=== PATIENT | female | born 1995 | race Caucasian/White ===

== ENCOUNTER 2017-05-24 20:48 | Inpatient (IN) | payer MEDICAID ==
[~2017-05-24] VITALS: Ht 165.1 cm; Wt 82.4 kg
[2017-05-24] MEDS ORDERED: SODIUM CHLORIDE 0.9% 1,000ML IVBOLUS ONE (21:30)
[2017-05-24] MEDS ORDERED: INSU100I34 SQ (21:32)
[2017-05-24] MEDS ORDERED: INSU100C5 SQ-INSULIN (21:32)
[2017-05-24] MEDS ORDERED: ONDA4TAB10 PO (21:33)
[2017-05-24 21:49] LABS: BASOPHILS # (AUTO) 0.12 x10^3/uL (0-0.1); BASOPHILS % (AUTO) 1 % (0-1); EOSINOPHILS # (AUTO) 0.01 x10^3/uL (0-0.4); EOSINOPHILS % (AUTO) 0 % (1-7); LYMPHOCYTES # (AUTO) 1.99 x10^3/uL (1-3.4); LYMPHOCYTES % (AUTO) 21 % (22-44); MD NO; MEAN CORPUSCULAR HEMOGLOBIN 30.5 pg (27.0-34.8); MEAN CORPUSCULAR HGB CONC 32.5 g/dL (32.4-35.8); MEAN PLATELET VOLUME 8.6 fL (7.4-10.4); MONOCYTES # (AUTO) 0.45 x10^3/uL (0.2-0.8); MONOCYTES % (AUTO) 5 % (2-9); NEUTROPHILS # (AUTO) 6.78 x10^3/uL (1.8-6.8); NEUTROPHILS % (AUTO) 73 % (42-75); PH, VENOUS 7.246 pH (7.320-7.420); PLATELET COUNT 617 x10^3/uL (130-400); RED BLOOD COUNT 4.74 x10^6/uL (3.82-5.3); RED CELL DISTRIBUTION WIDTH 15.7 % (9.6-15.2)
[2017-05-24] MEDS ORDERED: ONDANSETRON 2MG/ML, 2ML ONE (21:49)
[2017-05-24 21:55] LABS: ACETONE, SERUM Large (80mg/dL) mg/dL (Negative)
[2017-05-24] MEDS ORDERED: ONDANSETRON 2MG/ML, 2ML IVPush ONE (22:00)
[2017-05-24 22:03] LABS: ALANINE AMINOTRANSFERASE 23 U/L (12-78); ALBUMIN 4.2 g/dL (3.4-5.0); ANION GAP 27 mmol/L (5-15); CALCIUM 9.8 mg/dL (8.5-10.1); CHLORIDE 96 mmol/L (98-107); CREATININE 2.11 mg/dL (0.55-1.02)
[2017-05-24 22:08] LABS: ALKALINE PHOSPHATASE 167 U/L (45-117); BILIRUBIN,TOTAL 0.5 mg/dL (0.2-1.0); TOTAL PROTEIN 9.5 g/dL (6.4-8.2)
[2017-05-24 22:13] LABS: HEMOGLOBIN A1C 12.1 % (4.2-6.3)
[2017-05-24 22:21] VITALS: BP 120/67
[2017-05-24] MEDS ORDERED: REGULAR INSULIN 62.5 UNITS in SODIUM CHLORIDE 0.9% 249.375 ML IV PRN ×2 (22:24→22:43)
[2017-05-24] MEDS ORDERED: SODIUM CHLORIDE 0.9% 1,000 ML IV ONE (22:24)
[2017-05-24] MEDS ORDERED: ACETAMINOPHEN 325 MG TABLET PO PRN (23:00)
[2017-05-24] MEDS ORDERED: ONDANSETRON 2MG/ML, 2ML IVPush PRN (23:00)
[2017-05-24] MEDS: SODIUM CHLORIDE 0.9% 1,000 ML IV SCH (23:32)
[2017-05-25 01:22] LABS: ANION GAP 22 mmol/L (5-15); CALCIUM 8.3 mg/dL (8.5-10.1); CHLORIDE 107 mmol/L (98-107)
[2017-05-25] MEDS: D5%-0.45% NACL 1,000 ML IV PRN ×2 (04:03→11:05)
[2017-05-25] MEDS: SODIUM CHLORIDE 0.9% 1,000 ML IV SCH ×2 (05:23→12:03)
[2017-05-25 05:28] LABS: ANION GAP 14 mmol/L (5-15); CALCIUM 7.1 mg/dL (8.5-10.1); CHLORIDE 106 mmol/L (98-107)
[2017-05-25 05:30] LABS: CREATININE 1.31 mg/dL (0.55-1.02)
[2017-05-25] MEDS ORDERED: MAGNESIUM SULFATE PMX 4GM/100M 100 ML IV ONE (08:00)
[2017-05-25] MEDS ORDERED: ENOXAPARIN 40 MG/0.4 ML SQ SCH (09:00)
[2017-05-25 09:20] LABS: ANION GAP 10 mmol/L (5-15); CALCIUM 7.6 mg/dL (8.5-10.1); CHLORIDE 104 mmol/L (98-107); CREATININE 1.35 mg/dL (0.55-1.02)
[2017-05-25] MEDS ORDERED: INSULIN GLARGINE 100 UNITS/ML, PEN SQ-INSULIN SCH (10:00)
[2017-05-25] MEDS ORDERED: INSULIN LISPRO 100 UNITS/ML, PEN SQ-INSULIN SCH (12:00)
== END 2017-05-25 15:50 | disposition home or self-care (01) | DRG 682 ==
LOC: SUATTDRO 22:36 → ED 22:54 → EDIP 22:55 → CCU 23:12
PROVIDERS: ADMIT Hospitalist; ATTEND Hospitalist
DX: N17.9 Acute kidney failure, unspecified (principal); E10.10 Type 1 diabetes mellitus with ketoacidosis without coma; E87.5 Hyperkalemia; E86.0 Dehydration; Z91.19 Patient's noncompliance with other medical treatment and regimen; E10.65 Type 1 diabetes mellitus with hyperglycemia
CPT/HCPCS: 36415; 71045; 80048; 80053; 82010; 82803; 82962; 83036; 83690; 83735; 84100; 84703; 85025; 87081; 93005; 96361; 96374; J1650; J1815; J2405; J3475; J7030; J7050

== ENCOUNTER 2017-05-28 20:57 | Inpatient (IN) | payer MEDICAID ==
[~2017-05-28] VITALS: Ht 165.1 cm; Wt 83.4 kg
[~2017-05-28 20:57] MED LIST: INSU100C5 SQ-INSULIN; INSU100I34 SQ; ONDA4TAB10 PO
[2017-05-28] MEDS ORDERED: PROMETHAZINE 25 MG/ML, 1ML ONE (21:23)
[2017-05-28] MEDS ORDERED: ONDANSETRON 2MG/ML, 2ML ONE (21:23)
[2017-05-28 21:29] LABS: PH, VENOUS 7.211 pH (7.320-7.420)
[2017-05-28] MEDS ORDERED: PROMETHAZINE 25 MG/ML, 1ML IM ONE (21:30)
[2017-05-28] MEDS ORDERED: SODIUM CHLORIDE 0.9% 1,000ML IVBOLUS ONE (21:30)
[2017-05-28] MEDS ORDERED: ONDANSETRON 2MG/ML, 2ML IVPush ONE (21:30)
[2017-05-28 21:38] LABS: BASOPHILS # (AUTO) 0.03 x10^3/uL (0-0.1); BASOPHILS % (AUTO) 1 % (0-1); EOSINOPHILS # (AUTO) 0.01 x10^3/uL (0-0.4); EOSINOPHILS % (AUTO) 0 % (1-7); LYMPHOCYTES # (AUTO) 2.08 x10^3/uL (1-3.4); LYMPHOCYTES % (AUTO) 30 % (22-44); MD NO; MEAN CORPUSCULAR HEMOGLOBIN 31.2 pg (27.0-34.8); MEAN CORPUSCULAR HGB CONC 32.6 g/dL (32.4-35.8); MEAN CORPUSCULAR VOLUME 95.8 fL (80-100); MONOCYTES # (AUTO) 0.32 x10^3/uL (0.2-0.8); MONOCYTES % (AUTO) 5 % (2-9); NEUTROPHILS # (AUTO) 4.57 x10^3/uL (1.8-6.8); NEUTROPHILS % (AUTO) 65 % (42-75); PLATELET COUNT 401 x10^3/uL (130-400); RED BLOOD COUNT 3.97 x10^6/uL (3.82-5.3); RED CELL DISTRIBUTION WIDTH 15.5 % (9.6-15.2)
[2017-05-28 21:39] LABS: ALANINE AMINOTRANSFERASE 22 U/L (12-78); ALBUMIN 3.6 g/dL (3.4-5.0); ANION GAP 28 mmol/L (5-15); CALCIUM 8.8 mg/dL (8.5-10.1); CHLORIDE 91 mmol/L (98-107); CREATININE 1.42 mg/dL (0.55-1.02)
[2017-05-28] MEDS ORDERED: REGULAR INSULIN 62.5 UNITS in SODIUM CHLORIDE 0.9% 249.375 ML IV PRN ×2 (21:41→23:48)
[2017-05-28 21:48] LABS: ALKALINE PHOSPHATASE 153 U/L (45-117); BILIRUBIN,TOTAL 0.7 mg/dL (0.2-1.0); TOTAL PROTEIN 7.8 g/dL (6.4-8.2)
[2017-05-28 21:56] LABS: ACETONE, SERUM Large (80mg/dL) mg/dL (Negative)
[2017-05-28] MEDS ORDERED: SODIUM CHLORIDE 0.9% 1,000 ML IV ONE (22:18)
[2017-05-28 22:36] LABS: HEMOGLOBIN A1C 12.6 % (4.2-6.3)
[2017-05-28] MEDS: SODIUM CHLORIDE 0.9% 1,000 ML IV SCH (23:35)
[2017-05-28] MEDS ORDERED: D5%-0.45% NACL 1,000 ML IV PRN (23:48)
[2017-05-29] MEDS ORDERED: ACETAMINOPHEN 325 MG TABLET PO PRN
[2017-05-29] MEDS ORDERED: hydrALAzine 20 MG/ML, 1ML IVPush PRN
[2017-05-29] MEDS ORDERED: ONDANSETRON 2MG/ML, 2ML IVPush PRN
[2017-05-29] MEDS ORDERED: POLYETHYLENE GLYCOL 17 GM PACKET PO PRN
[2017-05-29] MEDS ORDERED: BISACODYL 10 MG SUPP PR PRN
[2017-05-29 00:24] LABS: FREE T4 (FREE THYROXINE) 1.07 ng/dL (0.76-1.46); THYROID STIMULATING HORMONE 0.625 mIU/L (0.358-3.740)
[2017-05-29 00:28] LABS: HEMOGLOBIN A1C 12.5 % (4.2-6.3)
[2017-05-29] MEDS ORDERED: ONDANSETRON 2MG/ML, 2ML ONE (00:47)
[2017-05-29 01:12] LABS: ANION GAP 25 mmol/L (5-15); CALCIUM 8.4 mg/dL (8.5-10.1); CHLORIDE 106 mmol/L (98-107); CREATININE 1.48 mg/dL (0.55-1.02)
[2017-05-29] MEDS: SODIUM CHLORIDE 0.9% 1,000 ML IV SCH ×2 (04:35→07:28)
[2017-05-29 05:54] LABS: BASOPHILS # (AUTO) 0.07 x10^3/uL (0-0.1); BASOPHILS % (AUTO) 1 % (0-1); EOSINOPHILS # (AUTO) 0.02 x10^3/uL (0-0.4); EOSINOPHILS % (AUTO) 0 % (1-7); LYMPHOCYTES # (AUTO) 3.12 x10^3/uL (1-3.4); LYMPHOCYTES % (AUTO) 48 % (22-44); MD NO; MEAN CORPUSCULAR HEMOGLOBIN 31.3 pg (27.0-34.8); MEAN CORPUSCULAR HGB CONC 33.6 g/dL (32.4-35.8); MEAN CORPUSCULAR VOLUME 93.1 fL (80-100); MEAN PLATELET VOLUME 7.6 fL (7.4-10.4); MONOCYTES # (AUTO) 0.55 x10^3/uL (0.2-0.8); MONOCYTES % (AUTO) 8 % (2-9); NEUTROPHILS # (AUTO) 2.77 x10^3/uL (1.8-6.8); NEUTROPHILS % (AUTO) 42 % (42-75); PLATELET COUNT 341 x10^3/uL (130-400); RED BLOOD COUNT 3.36 x10^6/uL (3.82-5.3); RED CELL DISTRIBUTION WIDTH 15.1 % (9.6-15.2)
[2017-05-29 06:04] LABS: ALANINE AMINOTRANSFERASE 17 U/L (12-78); ALBUMIN 2.9 g/dL (3.4-5.0); ANION GAP 9 mmol/L (5-15); CALCIUM 8.3 mg/dL (8.5-10.1); CHLORIDE 113 mmol/L (98-107); CHOLESTEROL, TOTAL 156 mg/dL (140-239); CREATININE 1.44 mg/dL (0.55-1.02); TRIGLYCERIDES 183 mg/dL (50-200); VLDL CHOLESTEROL 37 mg/dL (0-25)
[2017-05-29 06:07] LABS: ALKALINE PHOSPHATASE 112 U/L (45-117); BILIRUBIN,TOTAL 0.3 mg/dL (0.2-1.0); CHOL/HDL RATIO 4.3; HDL CHOL % 23 % (28-40); HDL CHOLESTEROL (DIRECT) 36 mg/dL (40-60); LDL CHOLESTEROL,CALCULATED 83 mg/dL (54-169); LDL/HDL RATIO 2.3 (0.5-3.0); TOTAL PROTEIN 6.2 g/dL (6.4-8.2)
[2017-05-29] MEDS: SENNA/DOCUSATE TABLET PO SCH (09:00)
[2017-05-29] MEDS: HEPARIN 5,000 UNITS/ML, 1ML SQ SCH ×4 (09:21→22:29)
[2017-05-29] MEDS: INSULIN LISPRO 100 UNITS/ML, PEN SQ-INSULIN SCH ×4 (09:22→22:29)
[2017-05-29] MEDS: INSULIN GLARGINE 100 UNITS/ML, PEN SQ-INSULIN SCH ×2 (09:22→22:29)
[2017-05-29 12:30] VITALS: BP 102/68
[2017-05-29 14:16] LABS: CULTURE INDICATED? NO; MICROSCOPIC NOT IND
[2017-05-29 19:21] VITALS: BP 108/71
[2017-05-30 02:35] VITALS: BP 85/49
[2017-05-30] MEDS: INSULIN LISPRO 100 UNITS/ML, PEN SQ-INSULIN SCH ×2 (07:57→11:50)
[2017-05-30 07:58] VITALS: BP 107/75
[2017-05-30] MEDS: HEPARIN 5,000 UNITS/ML, 1ML SQ SCH (07:58)
[2017-05-30] MEDS: SENNA/DOCUSATE TABLET PO SCH (07:58)
[2017-05-30] MEDS ORDERED: INSULIN GLARGINE 100 UNITS/ML, PEN SQ-INSULIN SCH (09:00)
[2017-05-30 09:44] LABS: ANION GAP 9 mmol/L (5-15); CALCIUM 8.1 mg/dL (8.5-10.1); CHLORIDE 102 mmol/L (98-107); CREATININE 1.23 mg/dL (0.55-1.02)
[2017-05-30 13:28] VITALS: BP 108/71
== END 2017-05-30 16:10 | disposition home or self-care (01) | DRG 637 ==
LOC: ED 22:26 → EDIP 22:37 → CCU 05-29 04:22 → 4NOR 05-29 13:13 → DCLOUNGE 05-30 16:03
PROVIDERS: ADMIT Internal Medicine; ATTEND Internal Medicine
DX: E10.10 Type 1 diabetes mellitus with ketoacidosis without coma (principal); N17.0 Acute kidney failure with tubular necrosis; E87.1 Hypo-osmolality and hyponatremia; E66.9 Obesity, unspecified; Z68.30 Body mass index [BMI] 30.0-30.9, adult; E86.0 Dehydration; E87.5 Hyperkalemia; F12.90 Cannabis use, unspecified, uncomplicated; Z83.3 Family history of diabetes mellitus; Z91.19 Patient's noncompliance with other medical treatment and regimen
CPT/HCPCS: 36415; 80048; 80053; 80061; 81003; 82010; 82803; 82962; 83036; 83690; 83735; 84439; 84443; 84703; 85025; 96361; 96365; 96372; 96375; J1644; J1815; J2405; J2550; J7030; J7050

== ENCOUNTER 2017-06-11 11:32 | Inpatient (IN) | payer MEDICAID ==
[~2017-06-11] VITALS: Ht 162.6 cm; Wt 86.9 kg
[2017-06-11] MEDS ORDERED: PLEASE ENTER HEIGHT AND WEIGHT MC SCH (12:00)
[2017-06-11] MEDS ORDERED: SODIUM CHLORIDE 0.9% 1,000ML IVBOLUS ONE ×2 (12:00→12:30)
[2017-06-11] MEDS ORDERED: SODIUM CHLORIDE FLUSH 10ML SYR IVF ONE (12:00)
[2017-06-11 12:09] LABS: BASOPHILS # (AUTO) 0.05 x10^3/uL (0-0.1); BASOPHILS % (AUTO) 0 % (0-1); EOSINOPHILS # (AUTO) 0.01 x10^3/uL (0-0.4); EOSINOPHILS % (AUTO) 0 % (1-7); LYMPHOCYTES # (AUTO) 1.48 x10^3/uL (1-3.4); LYMPHOCYTES % (AUTO) 11 % (22-44); MD NO; MEAN CORPUSCULAR HEMOGLOBIN 30.7 pg (27.0-34.8); MEAN CORPUSCULAR HGB CONC 31.9 g/dL (32.4-35.8); MEAN CORPUSCULAR VOLUME 96.5 fL (80-100); MEAN PLATELET VOLUME 9.2 fL (7.4-10.4); MONOCYTES # (AUTO) 0.38 x10^3/uL (0.2-0.8); MONOCYTES % (AUTO) 3 % (2-9); NEUTROPHILS # (AUTO) 11.76 x10^3/uL (1.8-6.8); NEUTROPHILS % (AUTO) 86 % (42-75); PLATELET COUNT 343 x10^3/uL (130-400); RED CELL DISTRIBUTION WIDTH 15.8 % (9.6-15.2)
[2017-06-11 12:11] LABS: FIO2 ROOM AIR %
[2017-06-11 12:14] LABS: PH, VENOUS 7.068 pH (7.320-7.420)
[2017-06-11 12:18] LABS: ALBUMIN 3.9 g/dL (3.4-5.0); ANION GAP 28 mmol/L (5-15); CHLORIDE 94 mmol/L (98-107); CREATININE 1.65 mg/dL (0.55-1.02)
[2017-06-11] MEDS ORDERED: REGULAR INSULIN 62.5 UNITS in SODIUM CHLORIDE 0.9% 249.375 ML IV PRN ×2 (12:22→13:00)
[2017-06-11 12:27] LABS: ACETONE, SERUM Large (80mg/dL) mg/dL (Negative)
[2017-06-11 12:46] LABS: MICROSCOPIC NOT IND
[2017-06-11 12:48] LABS: CULTURE INDICATED? NO
[2017-06-11] MEDS ORDERED: BISACODYL 10 MG SUPP PR PRN (13:00)
[2017-06-11] MEDS ORDERED: ACETAMINOPHEN 325 MG TABLET PO PRN (13:00)
[2017-06-11] MEDS ORDERED: DOCUSATE 100 MG CAPSULE PO PRN (13:00)
[2017-06-11] MEDS ORDERED: POLYETHYLENE GLYCOL 17 GM PACKET PO PRN (13:00)
[2017-06-11] MEDS ORDERED: ONDANSETRON 2MG/ML, 2ML IVPush PRN (13:00)
[2017-06-11] MEDS: SODIUM CHLORIDE 0.9% 1,000 ML IV SCH ×2 (13:21→19:15)
[2017-06-11 14:06] VITALS: BP 123/58
[2017-06-11 14:24] LABS: CALCIUM 8.9 mg/dL (8.5-10.1); CHLORIDE 102 mmol/L (98-107); CREATININE 1.73 mg/dL (0.55-1.02)
[2017-06-11 14:33] LABS: ANION GAP 26 mmol/L (5-15)
[2017-06-11] MEDS ORDERED: ALBUTEROL SULFATE 2.5MG/0.5ML NPPB STA (14:40)
[2017-06-11] MEDS ORDERED: SODIUM CHLORIDE 0.9% 1,000ML IVBOLUS STA (14:41)
[2017-06-11] MEDS ORDERED: SODIUM BICARBONATE 1 MEQ/ML, 50ML VIAL IVPush STA (14:42)
[2017-06-11] MEDS ORDERED: SODIUM BICARBONATE 1 MEQ/ML, 50ML VIAL ONE (14:42)
[2017-06-11] MEDS ORDERED: ALBUTEROL SULFATE 2.5 MG/3 ML NPPB ONE (15:00)
[2017-06-11] MEDS ORDERED: INSULIN REGULAR 100 UNITS/ML, 3ML VIAL IVPush ONE (15:00)
[2017-06-11] MEDS ORDERED: CALCIUM GLUCONATE 4.6 MEQ in SODIUM CHLORIDE 0.9% 50 ML IV ONE (15:00)
[2017-06-11] MEDS ORDERED: SODIUM BICARB 8.4%, 50ML SYRINGE IVPush ONE (15:00)
[2017-06-11] MEDS: SODIUM POLYSTYRENE SULFONATE ORAL SUSP PO SCH ×2 (15:12→15:41)
[2017-06-11 18:39] LABS: ANION GAP 18 mmol/L (5-15); CALCIUM 7.9 mg/dL (8.5-10.1); CHLORIDE 115 mmol/L (98-107); CREATININE 1.34 mg/dL (0.55-1.02)
[2017-06-11] MEDS: D5%-0.45% NACL 1,000 ML IV SCH (20:54)
[2017-06-11] MEDS ORDERED: FAMOTIDINE 20 MG/2 ML IVPush SCH (21:00)
[2017-06-11] MEDS: HEPARIN 5,000 UNITS/ML, 1ML SQ SCH (22:19)
[2017-06-11 22:35] LABS: ANION GAP 14 mmol/L (5-15); CALCIUM 7.7 mg/dL (8.5-10.1); CHLORIDE 111 mmol/L (98-107); CREATININE 1.22 mg/dL (0.55-1.02)
[2017-06-12] MEDS: SODIUM CHLORIDE 0.9% 1,000 ML IV SCH ×2 (01:55→08:35)
[2017-06-12 01:59] LABS: ANION GAP 10 mmol/L (5-15); CALCIUM 7.7 mg/dL (8.5-10.1); CHLORIDE 110 mmol/L (98-107); CREATININE 1.09 mg/dL (0.55-1.02)
[2017-06-12] MEDS ORDERED: POTASSIUM CHLORIDE 20 MEQ TAB.ER.PRT PO ONE ×2 (03:00→08:30)
[2017-06-12] MEDS: D5%-0.45% NACL 1,000 ML IV SCH (06:06)
[2017-06-12] MEDS: HEPARIN 5,000 UNITS/ML, 1ML SQ SCH ×3 (06:11→19:28)
[2017-06-12 06:18] LABS: ALBUMIN 2.8 g/dL (3.4-5.0); ANION GAP 10 mmol/L (5-15); CALCIUM 7.5 mg/dL (8.5-10.1); CHLORIDE 109 mmol/L (98-107); CREATININE 1.06 mg/dL (0.55-1.02)
[2017-06-12 06:20] LABS: ALANINE AMINOTRANSFERASE 14 U/L (12-78); ALKALINE PHOSPHATASE 96 U/L (45-117); BILIRUBIN,TOTAL 0.4 mg/dL (0.2-1.0); TOTAL PROTEIN 6.1 g/dL (6.4-8.2)
[2017-06-12 06:24] LABS: BASOPHILS # (AUTO) 0.02 x10^3/uL (0-0.1); BASOPHILS % (AUTO) 0 % (0-1); EOSINOPHILS # (AUTO) 0.04 x10^3/uL (0-0.4); EOSINOPHILS % (AUTO) 1 % (1-7); LYMPHOCYTES # (AUTO) 2.66 x10^3/uL (1-3.4); LYMPHOCYTES % (AUTO) 35 % (22-44); MD NO; MEAN CORPUSCULAR HEMOGLOBIN 31.3 pg (27.0-34.8); MEAN CORPUSCULAR HGB CONC 33.8 g/dL (32.4-35.8); MEAN CORPUSCULAR VOLUME 92.5 fL (80-100); MEAN PLATELET VOLUME 7.7 fL (7.4-10.4); MONOCYTES # (AUTO) 0.57 x10^3/uL (0.2-0.8); MONOCYTES % (AUTO) 8 % (2-9); NEUTROPHILS # (AUTO) 4.25 x10^3/uL (1.8-6.8); NEUTROPHILS % (AUTO) 56 % (42-75); PLATELET COUNT 256 x10^3/uL (130-400); RED BLOOD COUNT 3.27 x10^6/uL (3.82-5.3); RED CELL DISTRIBUTION WIDTH 15.7 % (9.6-15.2)
[2017-06-12] MEDS ORDERED: MAGNESIUM SULFATE PMX 4GM/100M 100 ML IV ONE (08:30)
[2017-06-12] MEDS ORDERED: INSULIN GLARGINE 100 UNITS/ML, PEN SQ-INSULIN SCH (10:00)
[2017-06-12] MEDS: SODIUM CHLORIDE 0.45% 1,000 ML IV SCH ×2 (10:15→18:28)
[2017-06-12] MEDS ORDERED: INSULIN LISPRO 100 UNITS/ML, PEN SQ-INSULIN SCH (11:00)
[2017-06-12 12:36] VITALS: BP 107/72
[2017-06-12] MEDS: INSULIN LISPRO 100 UNITS/ML, PEN SQ-INSULIN SCH ×2 (16:00→19:41)
[2017-06-12 19:35] VITALS: BP 106/70
[2017-06-12] MEDS: INSULIN GLARGINE 100 UNITS/ML, PEN SQ-INSULIN SCH (19:42)
[2017-06-13] MEDS: SODIUM CHLORIDE 0.45% 1,000 ML IV SCH ×2 (01:31→09:47)
[2017-06-13 01:55] VITALS: BP 109/73
[2017-06-13 05:41] LABS: ANION GAP 6 mmol/L (5-15); CHLORIDE 110 mmol/L (98-107); CREATININE 1.04 mg/dL (0.55-1.02)
[2017-06-13] MEDS: HEPARIN 5,000 UNITS/ML, 1ML SQ SCH ×2 (05:59→14:00)
[2017-06-13 08:15] VITALS: BP 138/90
[2017-06-13] MEDS: INSULIN GLARGINE 100 UNITS/ML, PEN SQ-INSULIN SCH (08:48)
[2017-06-13] MEDS: INSULIN LISPRO 100 UNITS/ML, PEN SQ-INSULIN SCH ×2 (08:48→11:00)
== END 2017-06-13 14:55 | disposition home or self-care (01) | DRG 682 ==
LOC: ED 12:34 → EDIP 12:35 → ED 12:35 → CCU 13:29 → 3NE 06-12 12:04 → DCLOUNGE 06-13 14:40
PROVIDERS: ADMIT Hospitalist; ATTEND Family Medicine
DX: N17.0 Acute kidney failure with tubular necrosis (principal); E10.10 Type 1 diabetes mellitus with ketoacidosis without coma; E87.1 Hypo-osmolality and hyponatremia; E87.5 Hyperkalemia; E86.0 Dehydration; D72.829 Elevated white blood cell count, unspecified; E66.9 Obesity, unspecified; Z68.35 Body mass index [BMI] 35.0-35.9, adult; Z79.4 Long term (current) use of insulin; Z91.14 Patient's other noncompliance with medication regimen
CPT/HCPCS: 36415; 80048; 80053; 81003; 82010; 82040; 82803; 82962; 83735; 84100; 84132; 85025; 87081; 94640; 94644; 96360; J0610; J1644; J1815; J2405; J7611; J7613; J3475; J7030; J7050; S0028

== ENCOUNTER 2017-06-16 17:20 | Inpatient (IN) | payer MEDICAID ==
[~2017-06-16] VITALS: Ht 165.1 cm; Wt 82.7 kg
[2017-06-16] MEDS ORDERED: SODIUM CHLORIDE 0.9% 1,000ML IVBOLUS ONE ×3 (17:30→19:00)
[2017-06-16] MEDS ORDERED: SODIUM CHLORIDE FLUSH 10ML SYR IVF ONE (17:30)
[2017-06-16] MEDS ORDERED: ONDANSETRON 2MG/ML, 2ML IVPush ONE (17:30)
[2017-06-16] MEDS ORDERED: PLEASE ENTER HEIGHT AND WEIGHT MC SCH (17:30)
[2017-06-16 17:43] LABS: PH, VENOUS 7.218 pH (7.320-7.420)
[2017-06-16 17:44] LABS: FIO2 ROOM AIR %
[2017-06-16 17:52] LABS: ACETONE, SERUM Large (80mg/dL) mg/dL (Negative)
[2017-06-16 17:56] LABS: ALANINE AMINOTRANSFERASE 16 U/L (12-78); ALBUMIN 3.1 g/dL (3.4-5.0); ANION GAP 24 mmol/L (5-15); CALCIUM 7.1 mg/dL (8.5-10.1); CHLORIDE 97 mmol/L (98-107); CREATININE 1.28 mg/dL (0.55-1.02)
[2017-06-16] MEDS ORDERED: ONDANSETRON 2MG/ML, 2ML ONE (17:58)
[2017-06-16 17:59] LABS: ALKALINE PHOSPHATASE 140 U/L (45-117); BILIRUBIN,TOTAL 0.8 mg/dL (0.2-1.0); TOTAL PROTEIN 6.3 g/dL (6.4-8.2)
[2017-06-16 18:01] LABS: BASOPHILS # (AUTO) 0.03 x10^3/uL (0-0.1); BASOPHILS % (AUTO) 0 % (0-1); EOSINOPHILS # (AUTO) 0.02 x10^3/uL (0-0.4); EOSINOPHILS % (AUTO) 0 % (1-7); LYMPHOCYTES # (AUTO) 1.78 x10^3/uL (1-3.4); LYMPHOCYTES % (AUTO) 21 % (22-44); MD NO; MEAN CORPUSCULAR HEMOGLOBIN 31.2 pg (27.0-34.8); MEAN CORPUSCULAR HGB CONC 32.3 g/dL (32.4-35.8); MEAN CORPUSCULAR VOLUME 96.7 fL (80-100); MEAN PLATELET VOLUME 9.6 fL (7.4-10.4); MONOCYTES # (AUTO) 0.56 x10^3/uL (0.2-0.8); MONOCYTES % (AUTO) 6 % (2-9); NEUTROPHILS # (AUTO) 6.26 x10^3/uL (1.8-6.8); NEUTROPHILS % (AUTO) 73 % (42-75); PLATELET COUNT 311 x10^3/uL (130-400); RED BLOOD COUNT 4.13 x10^6/uL (3.82-5.3); RED CELL DISTRIBUTION WIDTH 15.5 % (9.6-15.2)
[2017-06-16] MEDS ORDERED: REGULAR INSULIN 62.5 UNITS in SODIUM CHLORIDE 0.9% 249.375 ML IV PRN ×2 (18:03→20:07)
[2017-06-16 18:17] LABS: MICROSCOPIC NOT IND
[2017-06-16 18:21] LABS: CULTURE INDICATED? NO
[2017-06-16] MEDS ORDERED: SODIUM CHLORIDE 0.9% 1,000 ML IV ONE (18:30)
[2017-06-16] MEDS ORDERED: SODIUM CHLORIDE FLUSH 10ML SYR IVF PRN (18:30)
[2017-06-16 20:10] LABS: ANION GAP 26 mmol/L (5-15); CALCIUM 7.8 mg/dL (8.5-10.1); CHLORIDE 101 mmol/L (98-107); CREATININE 1.62 mg/dL (0.55-1.02)
[2017-06-16] MEDS ORDERED: SODIUM CHLORIDE 0.9% 1,000 ML IV SCH (20:11)
[2017-06-16] MEDS ORDERED: POLYETHYLENE GLYCOL 17 GM PACKET PO PRN (20:30)
[2017-06-16] MEDS ORDERED: OXYcodone IR 5MG TABLET PO PRN (20:30)
[2017-06-16] MEDS ORDERED: hydrALAzine 20 MG/ML, 1ML IVPush PRN (20:30)
[2017-06-16] MEDS ORDERED: morphine SULFATE 10 MG/ML, 1ML IVPush PRN (20:30)
[2017-06-16] MEDS ORDERED: ACETAMINOPHEN 325 MG TABLET PO PRN (20:30)
[2017-06-16] MEDS ORDERED: BISACODYL 10 MG SUPP PR PRN (20:30)
[2017-06-16] MEDS ORDERED: ONDANSETRON 2MG/ML, 2ML IVPush PRN (20:30)
[2017-06-16 20:53] LABS: HEMOGLOBIN A1C 12.3 % (4.2-6.3)
[2017-06-16 22:35] VITALS: BP 97/81
[2017-06-16] MEDS: D5%-0.45% NACL 1,000 ML IV PRN (23:37)
[2017-06-17 00:42] LABS: ANION GAP 8 mmol/L (5-15); CALCIUM 7.8 mg/dL (8.5-10.1); CHLORIDE 113 mmol/L (98-107); CREATININE 1.28 mg/dL (0.55-1.02)
[2017-06-17] MEDS: HEPARIN 5,000 UNITS/ML, 1ML SQ SCH ×4 (01:57→20:32)
[2017-06-17 04:00] VITALS: BP 100/56
[2017-06-17 04:43] LABS: BASOPHILS # (AUTO) 0.06 x10^3/uL (0-0.1); BASOPHILS % (AUTO) 1 % (0-1); EOSINOPHILS # (AUTO) 0.04 x10^3/uL (0-0.4); EOSINOPHILS % (AUTO) 1 % (1-7); LYMPHOCYTES # (AUTO) 2.55 x10^3/uL (1-3.4); LYMPHOCYTES % (AUTO) 48 % (22-44); MD SCAN; MEAN CORPUSCULAR HGB CONC 33.5 g/dL (32.4-35.8); MEAN CORPUSCULAR VOLUME 92.6 fL (80-100); MEAN PLATELET VOLUME 7.9 fL (7.4-10.4); MONOCYTES # (AUTO) 0.47 x10^3/uL (0.2-0.8); MONOCYTES % (AUTO) 9 % (2-9); NEUTROPHILS # (AUTO) 2.15 x10^3/uL (1.8-6.8); NEUTROPHILS % (AUTO) 41 % (42-75); PLATELET COUNT 279 x10^3/uL (130-400); RED BLOOD COUNT 3.44 x10^6/uL (3.82-5.3)
[2017-06-17 04:47] LABS: ANION GAP 11 mmol/L (5-15); CHLORIDE 111 mmol/L (98-107)
[2017-06-17 04:49] LABS: CREATININE 1.22 mg/dL (0.55-1.02)
[2017-06-17] MEDS: D5%-0.45% NACL 1,000 ML IV PRN (06:07)
[2017-06-17] MEDS ORDERED: INSULIN GLARGINE 100 UNITS/ML, PEN ONE (08:10)
[2017-06-17] MEDS: INSULIN GLARGINE 100 UNITS/ML, PEN SQ-INSULIN SCH ×2 (08:16→20:32)
[2017-06-17] MEDS: SENNA/DOCUSATE TABLET PO SCH (09:00)
[2017-06-17] MEDS: INSULIN LISPRO 100 UNITS/ML, PEN SQ-INSULIN SCH ×4 (11:57→22:20)
[2017-06-17 13:50] VITALS: BP 103/68
[2017-06-17 19:20] VITALS: BP 103/67
[2017-06-18 02:35] VITALS: BP 98/61
[2017-06-18] MEDS: INSULIN LISPRO 100 UNITS/ML, PEN SQ-INSULIN SCH ×4 (02:39→15:26)
[2017-06-18 06:35] LABS: BASOPHILS # (AUTO) 0.04 x10^3/uL (0-0.1); BASOPHILS % (AUTO) 1 % (0-1); EOSINOPHILS # (AUTO) 0.06 x10^3/uL (0-0.4); EOSINOPHILS % (AUTO) 1 % (1-7); LYMPHOCYTES # (AUTO) 2.11 x10^3/uL (1-3.4); LYMPHOCYTES % (AUTO) 40 % (22-44); MD NO; MEAN CORPUSCULAR HEMOGLOBIN 31.7 pg (27.0-34.8); MEAN CORPUSCULAR VOLUME 93.3 fL (80-100); MEAN PLATELET VOLUME 7.9 fL (7.4-10.4); MONOCYTES % (AUTO) 8 % (2-9); NEUTROPHILS # (AUTO) 2.61 x10^3/uL (1.8-6.8); NEUTROPHILS % (AUTO) 50 % (42-75); PLATELET COUNT 256 x10^3/uL (130-400); RED CELL DISTRIBUTION WIDTH 16.2 % (9.6-15.2)
[2017-06-18 06:39] LABS: ALBUMIN 2.9 g/dL (3.4-5.0); ANION GAP 8 mmol/L (5-15); CALCIUM 8.1 mg/dL (8.5-10.1); CHLORIDE 110 mmol/L (98-107)
[2017-06-18 06:43] LABS: ALANINE AMINOTRANSFERASE 15 U/L (12-78); ALKALINE PHOSPHATASE 101 U/L (45-117); BILIRUBIN,TOTAL 0.5 mg/dL (0.2-1.0); CREATININE 0.83 mg/dL (0.55-1.02); TOTAL PROTEIN 6.3 g/dL (6.4-8.2)
[2017-06-18] MEDS ORDERED: POTASSIUM CHLORIDE 20 MEQ TAB.ER.PRT PO ONE (08:00)
[2017-06-18] MEDS: HEPARIN 5,000 UNITS/ML, 1ML SQ SCH (09:27)
[2017-06-18] MEDS: SENNA/DOCUSATE TABLET PO SCH (09:30)
[2017-06-18] MEDS: INSULIN GLARGINE 100 UNITS/ML, PEN SQ-INSULIN SCH (09:30)
[2017-06-18 10:08] VITALS: BP 120/71
[2017-06-18] MEDS ORDERED: INSU100I34 SQ (11:45)
[2017-06-18] MEDS ORDERED: MAGNESIUM OXIDE 400 MG TABLET PO ONE (12:00)
[2017-06-18 12:55] VITALS: BP 103/70
== END 2017-06-18 16:57 | disposition home or self-care (01) | DRG 682 ==
LOC: ED 17:51 → EDIP 18:30 → CCU 21:03 → 3NW 06-17 12:50
PROVIDERS: ADMIT Internal Medicine; ATTEND Internal Medicine
DX: N17.0 Acute kidney failure with tubular necrosis (principal); E10.10 Type 1 diabetes mellitus with ketoacidosis without coma; E44.0 Moderate protein-calorie malnutrition; E87.1 Hypo-osmolality and hyponatremia; Z68.30 Body mass index [BMI] 30.0-30.9, adult; F12.10 Cannabis abuse, uncomplicated; Z79.4 Long term (current) use of insulin; Z83.3 Family history of diabetes mellitus; Z91.19 Patient's noncompliance with other medical treatment and regimen
CPT/HCPCS: 36415; 71045; 80048; 80053; 81003; 82010; 82803; 82962; 83036; 83735; 85025; 87081; 93005; 96361; 96374; 96375; J1644; J1815; J2405; J7030; J7050

== ENCOUNTER 2017-06-28 12:49 | Inpatient (IN) | payer MEDICAID ==
[~2017-06-28] VITALS: Ht 165.1 cm; Wt 82.9 kg
[2017-06-28] MEDS ORDERED: SODIUM CHLORIDE 0.9% 1,000ML IVBOLUS ONE (13:00)
[2017-06-28] MEDS ORDERED: INSU100C5 SQ-INSULIN (14:17)
[2017-06-28] MEDS ORDERED: INSU100V8 SQ ×2 (14:17)
[2017-06-28 14:18] LABS: MICROSCOPIC AUTO
[2017-06-28 14:19] LABS: CULTURE INDICATED? YES
[2017-06-28 14:23] LABS: BASOPHILS # (AUTO) 0.03 x10^3/uL (0-0.1); BASOPHILS % (AUTO) 0 % (0-1); EOSINOPHILS # (AUTO) 0.02 x10^3/uL (0-0.4); EOSINOPHILS % (AUTO) 0 % (1-7); LYMPHOCYTES # (AUTO) 1.77 x10^3/uL (1-3.4); LYMPHOCYTES % (AUTO) 13 % (22-44); MD NO; MEAN CORPUSCULAR HEMOGLOBIN 30.9 pg (27.0-34.8); MEAN CORPUSCULAR HGB CONC 32.4 g/dL (32.4-35.8); MEAN CORPUSCULAR VOLUME 95.1 fL (80-100); MEAN PLATELET VOLUME 8.4 fL (7.4-10.4); MONOCYTES # (AUTO) 0.49 x10^3/uL (0.2-0.8); MONOCYTES % (AUTO) 4 % (2-9); NEUTROPHILS % (AUTO) 84 % (42-75); PLATELET COUNT 507 x10^3/uL (130-400); RED BLOOD COUNT 4.58 x10^6/uL (3.82-5.3); RED CELL DISTRIBUTION WIDTH 15.6 % (9.6-15.2)
[2017-06-28 14:24] LABS: PH, VENOUS 7.014 pH (7.320-7.420)
[2017-06-28 14:25] LABS: FIO2 RA %
[2017-06-28] MEDS ORDERED: REGULAR INSULIN 62.5 UNITS in SODIUM CHLORIDE 0.9% 249.375 ML IV PRN (14:27)
[2017-06-28 14:29] LABS: ALBUMIN 3.6 g/dL (3.4-5.0); ANION GAP 27 mmol/L (5-15); CALCIUM 9.2 mg/dL (8.5-10.1); CHLORIDE 96 mmol/L (98-107)
[2017-06-28] MEDS ORDERED: SODIUM CHLORIDE 0.9%, 500ML IVBOLUS ONE (14:30)
[2017-06-28 14:32] LABS: ALANINE AMINOTRANSFERASE 15 U/L (12-78); ALKALINE PHOSPHATASE 187 U/L (45-117); BILIRUBIN,TOTAL 0.5 mg/dL (0.2-1.0); CREATININE 1.62 mg/dL (0.55-1.02); TOTAL PROTEIN 8.9 g/dL (6.4-8.2)
[2017-06-28] MEDS: D5%-0.45NACL+KCL 20MEQ 1,000 ML IV SCH ×2 (14:59→20:47)
[2017-06-28] MEDS ORDERED: METOCLOPRAMIDE 5 MG/ML, 2ML IVPush PRN (15:00)
[2017-06-28] MEDS ORDERED: ONDANSETRON ODT 4 MG PO PRN (15:00)
[2017-06-28] MEDS ORDERED: ONDANSETRON ODT 4 MG PO ONE (15:00)
[2017-06-28] MEDS ORDERED: POLYETHYLENE GLYCOL 17 GM PACKET PO PRN (15:00)
[2017-06-28] MEDS ORDERED: ONDANSETRON ODT 4 MG ONE (15:05)
[2017-06-28 15:13] LABS: HEMOGLOBIN A1C 12.7 % (4.2-6.3)
[2017-06-28 15:20] LABS: ACETONE, SERUM Large (80mg/dL) mg/dL (Negative)
[2017-06-28] MEDS ORDERED: LIDOCAINE-MPF 1%, 2ML ONE (15:44)
[2017-06-28] MEDS ORDERED: CEFTRIAXONE 1,000 MG ONE (15:44)
[2017-06-28] MEDS ORDERED: CEFTRIAXONE 1,000 MG IM ONE (16:00)
[2017-06-28] MEDS ORDERED: AMPICILLIN/SULBACTAM 3 GM in SODIUM CHLORIDE 0.9% 100 ML IV SCH (16:00)
[2017-06-28] MEDS ORDERED: AMPICILLIN/SULBACTAM 3 GM in SODIUM CHLORIDE 0.9% 100 ML IV ONE (16:00)
[2017-06-28] MEDS ORDERED: ENOXAPARIN 40 MG/0.4 ML ONE (16:18)
[2017-06-28] MEDS: SODIUM CHLORIDE 0.9% 1,000 ML IV SCH ×3 (16:27→21:57)
[2017-06-28] MEDS: ENOXAPARIN 40 MG/0.4 ML SQ SCH (16:29)
[2017-06-28] MEDS: ACETAMINOPHEN 325 MG TABLET PO PRN ×2 (16:43→20:38)
[2017-06-28 20:02] LABS: ANION GAP 24 mmol/L (5-15); CALCIUM 8.7 mg/dL (8.5-10.1); CHLORIDE 111 mmol/L (98-107); CREATININE 1.52 mg/dL (0.55-1.02)
[2017-06-28] MEDS: AMPICILLIN/SULBACTAM 3 GM IM SCH (21:51)
[2017-06-28 22:41] LABS: ANION GAP 18 mmol/L (5-15); CALCIUM 7.8 mg/dL (8.5-10.1); CHLORIDE 111 mmol/L (98-107); CREATININE 1.18 mg/dL (0.55-1.02)
[2017-06-29 01:54] LABS: ANION GAP 18 mmol/L (5-15); CALCIUM 7.8 mg/dL (8.5-10.1); CHLORIDE 109 mmol/L (98-107); CREATININE 1.14 mg/dL (0.55-1.02)
[2017-06-29] MEDS: D5%-0.45NACL+KCL 20MEQ 1,000 ML IV SCH ×3 (02:22→16:56)
[2017-06-29] MEDS: SODIUM CHLORIDE 0.9% 1,000 ML IV SCH ×4 (04:18→20:58)
[2017-06-29] MEDS: ACETAMINOPHEN 325 MG TABLET PO PRN ×2 (04:19→12:30)
[2017-06-29] MEDS: AMPICILLIN/SULBACTAM 3 GM IM SCH ×4 (04:19→22:38)
[2017-06-29 04:33] LABS: BASOPHILS # (AUTO) 0.09 x10^3/uL (0-0.1); BASOPHILS % (AUTO) 1 % (0-1); EOSINOPHILS # (AUTO) 0.01 x10^3/uL (0-0.4); EOSINOPHILS % (AUTO) 0 % (1-7); LYMPHOCYTES # (AUTO) 2.38 x10^3/uL (1-3.4); LYMPHOCYTES % (AUTO) 32 % (22-44); MD NO; MEAN CORPUSCULAR VOLUME 93.8 fL (80-100); MEAN PLATELET VOLUME 7.6 fL (7.4-10.4); MONOCYTES # (AUTO) 0.52 x10^3/uL (0.2-0.8); MONOCYTES % (AUTO) 7 % (2-9); NEUTROPHILS # (AUTO) 4.52 x10^3/uL (1.8-6.8); NEUTROPHILS % (AUTO) 60 % (42-75); PLATELET COUNT 459 x10^3/uL (130-400); RED BLOOD COUNT 3.64 x10^6/uL (3.82-5.3); RED CELL DISTRIBUTION WIDTH 15.9 % (9.6-15.2)
[2017-06-29] MEDS: REGULAR INSULIN 62.5 UNITS in SODIUM CHLORIDE 0.9% 249.375 ML IV PRN (05:49)
[2017-06-29 06:20] LABS: ALANINE AMINOTRANSFERASE 12 U/L (12-78); ALBUMIN 2.8 g/dL (3.4-5.0); ANION GAP 15 mmol/L (5-15); CALCIUM 7.9 mg/dL (8.5-10.1); CHLORIDE 110 mmol/L (98-107); CREATININE 1.19 mg/dL (0.55-1.02)
[2017-06-29 06:22] LABS: ALKALINE PHOSPHATASE 131 U/L (45-117); BILIRUBIN,TOTAL 0.3 mg/dL (0.2-1.0); TOTAL PROTEIN 7.1 g/dL (6.4-8.2)
[2017-06-29] MEDS ORDERED: MAGNESIUM SULFATE PMX 4GM/100M 100 ML IV ONE (08:00)
[2017-06-29] MEDS: SENNA/DOCUSATE TABLET PO SCH (09:00)
[2017-06-29] MEDS ORDERED: AMPICILLIN/SULBACTAM 3 GM in SODIUM CHLORIDE 0.9% 100 ML IV ONE (11:00)
[2017-06-29 12:21] LABS: ANION GAP 15 mmol/L (5-15); CHLORIDE 108 mmol/L (98-107)
[2017-06-29 12:23] LABS: CREATININE 1.08 mg/dL (0.55-1.02)
[2017-06-29 16:19] LABS: ANION GAP 13 mmol/L (5-15); CALCIUM 8.4 mg/dL (8.5-10.1); CHLORIDE 106 mmol/L (98-107); CREATININE 1.27 mg/dL (0.55-1.02)
[2017-06-29] MEDS: ENOXAPARIN 40 MG/0.4 ML SQ SCH (16:59)
[2017-06-29 20:59] LABS: ANION GAP 11 mmol/L (5-15); CALCIUM 8.2 mg/dL (8.5-10.1); CHLORIDE 112 mmol/L (98-107)
[2017-06-29] MEDS ORDERED: POTASSIUM CHLORIDE 20 MEQ TAB.ER.PRT PO ONE (21:30)
[2017-06-30] MEDS: D5%-0.45NACL+KCL 20MEQ 1,000 ML IV SCH ×2 (00:42→07:30)
[2017-06-30 00:46] LABS: ANION GAP 12 mmol/L (5-15); CALCIUM 7.8 mg/dL (8.5-10.1); CHLORIDE 109 mmol/L (98-107); CREATININE 1.12 mg/dL (0.55-1.02)
[2017-06-30] MEDS: ACETAMINOPHEN 325 MG TABLET PO PRN (00:56)
[2017-06-30] MEDS: SODIUM CHLORIDE 0.9% 1,000 ML IV SCH ×3 (01:59→18:28)
[2017-06-30] MEDS: REGULAR INSULIN 62.5 UNITS in SODIUM CHLORIDE 0.9% 249.375 ML IV PRN (02:46)
[2017-06-30] MEDS: AMPICILLIN/SULBACTAM 3 GM IM SCH (04:21)
[2017-06-30 04:33] LABS: ANION GAP 9 mmol/L (5-15); CALCIUM 8.3 mg/dL (8.5-10.1); CHLORIDE 111 mmol/L (98-107); CREATININE 1.23 mg/dL (0.55-1.02)
[2017-06-30] MEDS: SENNA/DOCUSATE TABLET PO SCH (08:41)
[2017-06-30] MEDS ORDERED: INSULIN LISPRO 100 UNITS/ML, PEN ONE (08:43)
[2017-06-30] MEDS: INSULIN LISPRO 100 UNITS/ML, PEN SQ-INSULIN SCH ×4 (08:47→20:18)
[2017-06-30] MEDS: INSULIN GLARGINE 100 UNITS/ML, PEN SQ-INSULIN SCH ×2 (08:48→20:18)
[2017-06-30] MEDS: AMOXICILLIN/CLAV 500-125MG TABLET PO SCH ×2 (11:14→18:27)
[2017-06-30 15:48] VITALS: BP 127/87
[2017-06-30] MEDS: ENOXAPARIN 40 MG/0.4 ML SQ SCH (16:17)
[2017-06-30 19:09] VITALS: BP 121/83
[2017-07-01] MEDS: AMOXICILLIN/CLAV 500-125MG TABLET PO SCH ×2 (01:34→09:02)
[2017-07-01] MEDS: ACETAMINOPHEN 325 MG TABLET PO PRN ×2 (01:34→07:27)
[2017-07-01 01:35] VITALS: BP 132/94
[2017-07-01] MEDS: SODIUM CHLORIDE 0.9% 1,000 ML IV SCH (03:47)
[2017-07-01 06:35] LABS: ANION GAP 8 mmol/L (5-15); CHLORIDE 115 mmol/L (98-107); CREATININE 0.66 mg/dL (0.55-1.02)
[2017-07-01] MEDS: INSULIN LISPRO 100 UNITS/ML, PEN SQ-INSULIN SCH ×2 (06:43→11:03)
[2017-07-01] MEDS ORDERED: POTASSIUM CHLORIDE 20 MEQ TAB.ER.PRT PO ONE (07:30)
[2017-07-01 07:38] VITALS: BP 137/93
[2017-07-01] MEDS: SENNA/DOCUSATE TABLET PO SCH (08:56)
[2017-07-01] MEDS: INSULIN GLARGINE 100 UNITS/ML, PEN SQ-INSULIN SCH (09:04)
[2017-07-01] MEDS ORDERED: INSU100I11 SQ-INSULIN (10:34)
[2017-07-01] MEDS ORDERED: INSU100I13 SQ-INSULIN (10:34)
[2017-07-01] MEDS ORDERED: AMOX-367 PO (10:34)
[2017-07-01 11:20] VITALS: BP 145/90
== END 2017-07-01 12:19 | disposition home or self-care (01) | DRG 637 ==
LOC: ED 14:29 → EDIP 14:30 → ED 14:48 → CCU 15:59 → 4NOR 06-30 15:40 → DCLOUNGE 07-01 12:04
PROVIDERS: ADMIT Internal Medicine; ATTEND Internal Medicine
DX: E10.10 Type 1 diabetes mellitus with ketoacidosis without coma (principal); N17.0 Acute kidney failure with tubular necrosis; E87.1 Hypo-osmolality and hyponatremia; D72.829 Elevated white blood cell count, unspecified; H92.01 Otalgia, right ear; R74.8 Abnormal levels of other serum enzymes; D47.3 Essential (hemorrhagic) thrombocythemia; E66.9 Obesity, unspecified; F12.90 Cannabis use, unspecified, uncomplicated; Z83.3 Family history of diabetes mellitus; Z91.14 Patient's other noncompliance with medication regimen; Z68.30 Body mass index [BMI] 30.0-30.9, adult
CPT/HCPCS: 36415; 80048; 80053; 81001; 82010; 82803; 82962; 83036; 83735; 84100; 84703; 85025; 87081; 87086; 93005; 96361; 96372; 96374; J0295; J0696; J1650; J1815; Q0162; J3475; J3480; J7030; J7040; J7050

== ENCOUNTER 2017-07-07 08:19 | Inpatient (IN) | payer MEDICAID ==
[~2017-07-07] VITALS: Ht 165.1 cm; Wt 88.0 kg
[~2017-07-07 08:19] MED LIST changes: +AMOX-367 PO; +INSU100I11 SQ-INSULIN; +INSU100I13 SQ-INSULIN; +INSU100V8 SQ
[2017-07-07] MEDS ORDERED: ONDANSETRON ODT 4 MG ONE (08:56)
[2017-07-07] MEDS ORDERED: ONDANSETRON ODT 4 MG PO ONE (09:00)
[2017-07-07] MEDS ORDERED: PLEASE ENTER HEIGHT AND WEIGHT MC SCH (09:00)
[2017-07-07] MEDS ORDERED: SODIUM CHLORIDE 0.9% 1,000ML IVBOLUS ONE ×2 (09:00)
[2017-07-07 09:30] LABS: ACETONE, SERUM Large (80mg/dL) mg/dL (Negative)
[2017-07-07 09:34] LABS: ALANINE AMINOTRANSFERASE 19 U/L (12-78); ALBUMIN 3.8 g/dL (3.4-5.0); ANION GAP 32 mmol/L (5-15); CALCIUM 8.8 mg/dL (8.5-10.1); CHLORIDE 95 mmol/L (98-107)
[2017-07-07 09:38] LABS: ALKALINE PHOSPHATASE 181 U/L (45-117); BILIRUBIN,TOTAL 0.4 mg/dL (0.2-1.0); TOTAL PROTEIN 8.6 g/dL (6.4-8.2)
[2017-07-07] MEDS ORDERED: CEFTRIAXONE 1,000 MG in SODIUM CHLORIDE 0.9% 50 ML IV SCH (10:00)
[2017-07-07] MEDS ORDERED: DEXTROSE 50%, 50ML SYRINGE IVPush ONE (10:00)
[2017-07-07] MEDS ORDERED: CALCIUM CHLORIDE 10%, 10ML SYR IVPush ONE (10:00)
[2017-07-07] MEDS ORDERED: SODIUM BICARB 8.4%, 50ML SYRINGE IVPush ONE (10:00)
[2017-07-07] MEDS ORDERED: ALBUTEROL 0.5%, 20ML NPPB ONE (10:00)
[2017-07-07] MEDS ORDERED: CALCIUM CHLORIDE 10%, 10ML SYR ONE (10:09)
[2017-07-07] MEDS ORDERED: DEXTROSE 50%, 50ML SYRINGE ONE (10:09)
[2017-07-07] MEDS ORDERED: INSULIN REGULAR 100 UNITS/ML, 3ML VIAL ONE (10:11)
[2017-07-07] MEDS ORDERED: SODIUM BICARB 8.4%, 50ML SYRINGE ONE ×2 (10:12→10:34)
[2017-07-07] MEDS ORDERED: CEFTRIAXONE PMX 1GM/50ML 50 ML ONE (10:13)
[2017-07-07 10:15] LABS: MEAN CORPUSCULAR HEMOGLOBIN 30.7 pg (27.0-34.8); MEAN CORPUSCULAR VOLUME 103.4 fL (80-100); MEAN PLATELET VOLUME 9.4 fL (7.4-10.4); PLATELET COUNT 488 x10^3/uL (130-400); RED BLOOD COUNT 4.66 x10^6/uL (3.82-5.3); RED CELL DISTRIBUTION WIDTH 16.6 % (9.6-15.2)
[2017-07-07 10:21] LABS: HEMOGRAM NOTE RECHECKED
[2017-07-07] MEDS ORDERED: ALBUTEROL SULFATE 2.5 MG/3 ML NPPBCONT STA (10:25)
[2017-07-07] MEDS: SODIUM CHLORIDE 0.9% 1,000 ML IV SCH ×2 (10:27→14:47)
[2017-07-07 10:30] LABS: BASOPHILS # (AUTO) 0.04 x10^3/uL (0-0.1); BASOPHILS % (AUTO) 0 % (0-1); EOSINOPHILS # (AUTO) 0.03 x10^3/uL (0-0.4); EOSINOPHILS % (AUTO) 0 % (1-7); LYMPHOCYTES # (AUTO) 2.81 x10^3/uL (1-3.4); LYMPHOCYTES % (AUTO) 15 % (22-44); MD SCAN; MEAN CORPUSCULAR HGB CONC 29.7 g/dL (32.4-35.8); MONOCYTES # (AUTO) 0.67 x10^3/uL (0.2-0.8); MONOCYTES % (AUTO) 4 % (2-9); NEUTROPHILS # (AUTO) 15.44 x10^3/uL (1.8-6.8); NEUTROPHILS % (AUTO) 81 % (42-75)
[2017-07-07] MEDS ORDERED: POLYETHYLENE GLYCOL 17 GM PACKET PO PRN (10:30)
[2017-07-07] MEDS ORDERED: SODIUM CHLORIDE 0.9% 1,000 ML IV ONE (10:30)
[2017-07-07] MEDS ORDERED: DOCUSATE 100 MG CAPSULE PO PRN (10:30)
[2017-07-07] MEDS ORDERED: BISACODYL 10 MG SUPP PR PRN (10:30)
[2017-07-07] MEDS ORDERED: ALBUTEROL SULFATE 2.5 MG/3 ML ONE (10:38)
[2017-07-07] MEDS ORDERED: ALBUTEROL 0.5%, 20ML ONE (10:42)
[2017-07-07] MEDS ORDERED: ALBUTEROL 0.5%, 20ML NPPBCONT SCH (11:00)
[2017-07-07] MEDS ORDERED: SODIUM BICARBONATE 1 MEQ/ML, 50ML VIAL IVPush ONE (11:00)
[2017-07-07] MEDS ORDERED: INSULIN REGULAR 100 UNITS/ML, 3ML VIAL IVPush ONE (11:00)
[2017-07-07] MEDS: REGULAR INSULIN 62.5 UNITS in SODIUM CHLORIDE 0.9% 249.375 ML IV PRN (11:06)
[2017-07-07] MEDS: SODIUM BICARB 8.4%,50ML SYR. 75 MEQ in SODIUM CHLORIDE 0.45% 1,000 ML IV SCH ×3 (11:19→22:36)
[2017-07-07] MEDS ORDERED: HEPARIN 5,000 UNITS/ML, 1ML ONE (11:31)
[2017-07-07] MEDS: HEPARIN 5,000 UNITS/ML, 1ML SQ SCH ×2 (11:43→19:40)
[2017-07-07 11:44] LABS: MICROSCOPIC NOT IND
[2017-07-07 11:48] LABS: CULTURE INDICATED? NO
[2017-07-07 12:01] LABS: CALCIUM 8.6 mg/dL (8.5-10.1)
[2017-07-07 12:03] LABS: ANION GAP 31 mmol/L (5-15); CALCIUM 8.6 mg/dL (8.5-10.1); CHLORIDE 107 mmol/L (98-107)
[2017-07-07 12:06] LABS: AMPHETAMINE SCREEN, URINE Negative (Negative); BARBITURATE SCREEN, URINE Negative (Negative); BENZODIAZEPINE SCREEN, URINE Negative (Negative); CANNABINOID SCREEN, URINE Negative (Negative); COCAINE SCREEN, URINE Negative (Negative); METHADONE SCREEN, URINE Negative (Negative); OPIATE SCREEN, URINE Negative (Negative)
[2017-07-07 12:09] LABS: CREATINE KINASE, TOTAL 35 U/L (26-192); CREATININE 2.11 mg/dL (0.55-1.02); TOTAL IRON BINDING CAPACITY 367 mcg/dL (250-450)
[2017-07-07 12:15] LABS: % IRON SATURATION 6 % (20-55); IRON LEVEL 21 mcg/dL (50-170)
[2017-07-07 13:51] LABS: CHLORIDE,URINE RANDOM 18 mmol/L; POTASSIUM,URINE RANDOM 15 mmol/L; SODIUM,URINE RANDOM 47 mmol/L; TOTAL PROTEIN,URINE RANDOM 15 mg/dL (0-12)
[2017-07-07 13:57] LABS: CREATININE,URINE RANDOM < 13.00 mg/dL
[2017-07-07] MEDS: ACETAMINOPHEN 325 MG TABLET PO PRN ×2 (15:35→19:37)
[2017-07-07 16:04] LABS: ANION GAP 28 mmol/L (5-15); CALCIUM 8.1 mg/dL (8.5-10.1); CHLORIDE 116 mmol/L (98-107); CREATININE 1.86 mg/dL (0.55-1.02)
[2017-07-07] MEDS: D5%-0.45% NACL 1,000 ML IV SCH (19:00)
[2017-07-07] MEDS: CEFEPIME 2 GM in DEXTROSE 5% 100 ML IV SCH (19:39)
[2017-07-07 19:47] LABS: ANION GAP 21 mmol/L (5-15); CHLORIDE 122 mmol/L (98-107)
[2017-07-07] MEDS: FAMOTIDINE 20 MG TABLET PO SCH (20:58)
[2017-07-08 00:22] LABS: ANION GAP 18 mmol/L (5-15); CALCIUM 7.4 mg/dL (8.5-10.1); CHLORIDE 112 mmol/L (98-107); CREATININE 1.32 mg/dL (0.55-1.02)
[2017-07-08] MEDS: D5%-0.45% NACL 1,000 ML IV SCH (02:04)
[2017-07-08 04:00] VITALS: BP 121/55
[2017-07-08] MEDS: HEPARIN 5,000 UNITS/ML, 1ML SQ SCH ×3 (04:19→19:55)
[2017-07-08 04:25] LABS: BASOPHILS # (AUTO) 0.03 x10^3/uL (0-0.1); BASOPHILS % (AUTO) 0 % (0-1); EOSINOPHILS % (AUTO) 0 % (1-7); LYMPHOCYTES # (AUTO) 2.32 x10^3/uL (1-3.4); LYMPHOCYTES % (AUTO) 22 % (22-44); MD NO; MEAN CORPUSCULAR HEMOGLOBIN 31.6 pg (27.0-34.8); MEAN CORPUSCULAR HGB CONC 33.5 g/dL (32.4-35.8); MEAN CORPUSCULAR VOLUME 94.2 fL (80-100); MEAN PLATELET VOLUME 7.3 fL (7.4-10.4); MONOCYTES % (AUTO) 11 % (2-9); NEUTROPHILS # (AUTO) 7.17 x10^3/uL (1.8-6.8); NEUTROPHILS % (AUTO) 67 % (42-75); PLATELET COUNT 295 x10^3/uL (130-400); RED BLOOD COUNT 3.27 x10^6/uL (3.82-5.3); RED CELL DISTRIBUTION WIDTH 15.9 % (9.6-15.2)
[2017-07-08 04:26] LABS: ALANINE AMINOTRANSFERASE 12 U/L (12-78); ALBUMIN 2.7 g/dL (3.4-5.0); ANION GAP 13 mmol/L (5-15); CALCIUM 7.3 mg/dL (8.5-10.1); CHLORIDE 109 mmol/L (98-107)
[2017-07-08 04:28] LABS: ALKALINE PHOSPHATASE 104 U/L (45-117); BILIRUBIN,TOTAL 0.4 mg/dL (0.2-1.0); TOTAL PROTEIN 6.1 g/dL (6.4-8.2)
[2017-07-08] MEDS ORDERED: SODIUM CHLORIDE 0.9% 1,000 ML IV SCH (06:00)
[2017-07-08] MEDS: CEFEPIME 2 GM in DEXTROSE 5% 100 ML IV SCH ×2 (06:31→18:27)
[2017-07-08] MEDS: ONDANSETRON 2MG/ML, 2ML IVPush PRN ×2 (07:21→12:59)
[2017-07-08] MEDS ORDERED: MAGNESIUM SULFATE PMX 2GM/50ML 50 ML IV ONE (08:30)
[2017-07-08] MEDS ORDERED: ERGOCALCIFEROL 50,000 UNIT CAPSULE PO SCH (08:30)
[2017-07-08] MEDS: FAMOTIDINE 20 MG TABLET PO SCH ×2 (08:30→20:08)
[2017-07-08] MEDS: ACETAMINOPHEN 325 MG TABLET PO PRN ×2 (08:30→18:27)
[2017-07-08] MEDS: IRON SUCROSE COMPLEX 100MG/5ML IV SCH (08:31)
[2017-07-08 08:48] LABS: ANION GAP 11 mmol/L (5-15); CALCIUM 7.3 mg/dL (8.5-10.1); CHLORIDE 108 mmol/L (98-107); CREATININE 1.15 mg/dL (0.55-1.02)
[2017-07-08] MEDS: REGULAR INSULIN 62.5 UNITS in SODIUM CHLORIDE 0.9% 249.375 ML IV PRN (10:25)
[2017-07-08] MEDS ORDERED: INSULIN GLARGINE 100 UNITS/ML, PEN ONE (10:32)
[2017-07-08] MEDS: INSULIN GLARGINE 100 UNITS/ML, PEN SQ-INSULIN SCH ×2 (10:35→22:09)
[2017-07-08] MEDS ORDERED: POTASSIUM CHLORIDE 10% 40 MEQ/30 ML UDC PO ONE (12:00)
[2017-07-08] MEDS: INSULIN LISPRO 100 UNITS/ML, PEN SQ-INSULIN SCH ×3 (12:55→20:09)
[2017-07-08] MEDS ORDERED: POTASSIUM CHLORIDE 20 MEQ TAB.ER.PRT PO ONE (13:30)
[2017-07-08 18:59] VITALS: BP 112/74
[2017-07-08] MEDS ORDERED: POTASSIUM CHLORIDE 10 MEQ in D5%-0.45% NACL 1,000 ML IV SCH (19:00)
[2017-07-08 20:04] VITALS: BP 106/68
[2017-07-09 01:05] VITALS: BP 108/62
[2017-07-09] MEDS: HEPARIN 5,000 UNITS/ML, 1ML SQ SCH ×2 (03:30→10:55)
[2017-07-09 06:20] LABS: BASOPHILS # (AUTO) 0.05 x10^3/uL (0-0.1); BASOPHILS % (AUTO) 1 % (0-1); EOSINOPHILS # (AUTO) 0.02 x10^3/uL (0-0.4); EOSINOPHILS % (AUTO) 0 % (1-7); LYMPHOCYTES # (AUTO) 2.16 x10^3/uL (1-3.4); LYMPHOCYTES % (AUTO) 41 % (22-44); MD NO; MEAN CORPUSCULAR HEMOGLOBIN 32.3 pg (27.0-34.8); MEAN CORPUSCULAR HGB CONC 34.4 g/dL (32.4-35.8); MEAN CORPUSCULAR VOLUME 93.8 fL (80-100); MEAN PLATELET VOLUME 7.6 fL (7.4-10.4); MONOCYTES # (AUTO) 0.39 x10^3/uL (0.2-0.8); MONOCYTES % (AUTO) 7 % (2-9); NEUTROPHILS # (AUTO) 2.68 x10^3/uL (1.8-6.8); NEUTROPHILS % (AUTO) 51 % (42-75); PLATELET COUNT 198 x10^3/uL (130-400); RED BLOOD COUNT 3.34 x10^6/uL (3.82-5.3); RED CELL DISTRIBUTION WIDTH 15.9 % (9.6-15.2)
[2017-07-09 06:21] LABS: ALANINE AMINOTRANSFERASE 12 U/L (12-78); ALBUMIN 2.6 g/dL (3.4-5.0); ANION GAP 10 mmol/L (5-15); CHLORIDE 110 mmol/L (98-107); CREATININE 1.08 mg/dL (0.55-1.02)
[2017-07-09 06:23] LABS: ALKALINE PHOSPHATASE 97 U/L (45-117); BILIRUBIN,TOTAL 0.3 mg/dL (0.2-1.0); TOTAL PROTEIN 5.9 g/dL (6.4-8.2)
[2017-07-09] MEDS: CEFEPIME 2 GM in DEXTROSE 5% 100 ML IV SCH (06:37)
[2017-07-09] MEDS: INSULIN LISPRO 100 UNITS/ML, PEN SQ-INSULIN SCH ×3 (07:00→17:31)
[2017-07-09 07:01] VITALS: BP 109/71
[2017-07-09] MEDS ORDERED: POTASSIUM PHOSPHATE 44 MEQ in SODIUM CHLORIDE 0.9% 500 ML IV ONE (09:00)
[2017-07-09] MEDS: IRON SUCROSE COMPLEX 100MG/5ML IV SCH (10:54)
[2017-07-09] MEDS: FAMOTIDINE 20 MG TABLET PO SCH (10:54)
[2017-07-09] MEDS: INSULIN GLARGINE 100 UNITS/ML, PEN SQ-INSULIN SCH (10:54)
[2017-07-09] MEDS: ONDANSETRON 2MG/ML, 2ML IVPush PRN (11:18)
[2017-07-09] MEDS ORDERED: ERGO500017 PO (13:00)
[2017-07-09 13:50] VITALS: BP 119/81
== END 2017-07-09 18:00 | disposition home or self-care (01) | DRG 682 ==
LOC: ED 09:34 → EDIP 10:25 → CCU 12:35 → 3NE 07-08 15:14
PROVIDERS: ADMIT Hospitalist; ATTEND Hospitalist
DX: N17.9 Acute kidney failure, unspecified (principal); E10.10 Type 1 diabetes mellitus with ketoacidosis without coma; G93.40 Encephalopathy, unspecified; E46 Unspecified protein-calorie malnutrition; E10.22 Type 1 diabetes mellitus with diabetic chronic kidney disease; D64.9 Anemia, unspecified; E86.9 Volume depletion, unspecified; E87.5 Hyperkalemia; F12.90 Cannabis use, unspecified, uncomplicated; H66.93 Otitis media, unspecified, bilateral; N18.9 Chronic kidney disease, unspecified; N25.0 Renal osteodystrophy; Z79.4 Long term (current) use of insulin; Z81.8 Family history of other mental and behavioral disorders; Z83.3 Family history of diabetes mellitus; Z91.19 Patient's noncompliance with other medical treatment and regimen; Z91.5 Personal history of self-harm; Z68.32 Body mass index [BMI] 32.0-32.9, adult
CPT/HCPCS: 36415; 71045; 76770; 80048; 80053; 80307; 81003; 82010; 82150; 82306; 82310; 82436; 82550; 82570; 82728; 82800; 82947; 82962; 83540; 83550; 83690; 83735; 83970; 84100; 84132; 84133; 84156; 84300; 84550; 84703; 85025; 87081; 87205; 93005; 94644; 96361; 96374; 96375; 96376; J0696; J1644; J1756; J1815; J2405; J7613; Q0162; J3475; J7030; J7040; J7050

== ENCOUNTER 2017-08-04 12:35 | Emergency (ER) | payer MEDICAID ==
[~2017-08-04] VITALS: Ht 165.1 cm; Wt 81.9 kg
[~2017-08-04 12:35] MED LIST changes: +ERGO500017 PO
[2017-08-04] MEDS ORDERED: SODIUM CHLORIDE 0.9% 1,000ML IVBOLUS ONE (13:30)
[2017-08-04] MEDS ORDERED: SODIUM CHLORIDE FLUSH 10ML SYR IVF ONE (13:30)
[2017-08-04 14:12] LABS: BASOPHILS # (AUTO) 0.05 x10^3/uL (0-0.1); BASOPHILS % (AUTO) 1 % (0-1); EOSINOPHILS # (AUTO) 0.02 x10^3/uL (0-0.4); EOSINOPHILS % (AUTO) 0 % (1-7); LYMPHOCYTES # (AUTO) 1.75 x10^3/uL (1-3.4); LYMPHOCYTES % (AUTO) 30 % (22-44); MD NO; MEAN CORPUSCULAR HEMOGLOBIN 32.2 pg (27.0-34.8); MEAN CORPUSCULAR VOLUME 97.5 fL (80-100); MEAN PLATELET VOLUME 8.1 fL (7.4-10.4); MONOCYTES # (AUTO) 0.34 x10^3/uL (0.2-0.8); MONOCYTES % (AUTO) 6 % (2-9); NEUTROPHILS # (AUTO) 3.61 x10^3/uL (1.8-6.8); NEUTROPHILS % (AUTO) 63 % (42-75); PLATELET COUNT 191 x10^3/uL (130-400); RED BLOOD COUNT 3.61 x10^6/uL (3.82-5.3); RED CELL DISTRIBUTION WIDTH 17.2 % (9.6-15.2)
[2017-08-04 14:31] LABS: ALBUMIN 3.3 g/dL (3.4-5.0); ANION GAP 11 mmol/L (5-15); CALCIUM 8.2 mg/dL (8.5-10.1); CHLORIDE 104 mmol/L (98-107)
[2017-08-04 14:35] LABS: ALANINE AMINOTRANSFERASE 20 U/L (12-78); ALKALINE PHOSPHATASE 127 U/L (45-117); BILIRUBIN,TOTAL 0.5 mg/dL (0.2-1.0); CREATININE 1.17 mg/dL (0.55-1.02); TOTAL PROTEIN 6.9 g/dL (6.4-8.2)
[2017-08-04 15:00] LABS: ACETONE, SERUM Moderate(40mg/dL) mg/dL (Negative)
[2017-08-04 15:10] LABS: AMPHETAMINE SCREEN, URINE Negative (Negative); BARBITURATE SCREEN, URINE Negative (Negative); BENZODIAZEPINE SCREEN, URINE Negative (Negative); CANNABINOID SCREEN, URINE Negative (Negative); COCAINE SCREEN, URINE Negative (Negative); METHADONE SCREEN, URINE Negative (Negative); OPIATE SCREEN, URINE Negative (Negative)
[2017-08-04 15:22] LABS: CULTURE INDICATED? YES; MICROSCOPIC INDICATED
[2017-08-04 15:28] VITALS: BP 130/80
== END 2017-08-04 15:29 | disposition home or self-care (01) ==
LOC: ED 14:59
DX: E10.65 Type 1 diabetes mellitus with hyperglycemia (principal); Z79.4 Long term (current) use of insulin
CPT/HCPCS: 36415; 71045; 80053; 80307; 81001; 82010; 82803; 85025; 87077; 87086; 87186; 96360; 96361; 99285; J7030

== ENCOUNTER 2017-12-05 08:19 | Inpatient (IN) | payer MEDICAID ==
[~2017-12-05] VITALS: Ht 165.1 cm; Wt 79.0 kg
[2017-12-05] MEDS ORDERED: INSU100C5 SQ-INSULIN (09:06)
[2017-12-05] MEDS ORDERED: INSU100V8 SQ (09:06)
[2017-12-05] MEDS ORDERED: ATOR10TA9 PO (09:06)
[2017-12-05] MEDS ORDERED: PROMETHAZINE 25 MG/ML, 1ML IM ONE (09:30)
[2017-12-05] MEDS ORDERED: FAMOTIDINE 20 MG/2 ML IVP ONE (09:30)
[2017-12-05] MEDS ORDERED: SODIUM CHLORIDE 0.9% 1,000ML IVBOLUS ONE ×2 (09:30→12:30)
[2017-12-05] MEDS ORDERED: PROMETHAZINE 25 MG/ML, 1ML ONE (09:44)
[2017-12-05] MEDS ORDERED: FAMOTIDINE 20 MG/2 ML ONE (10:46)
[2017-12-05] MEDS ORDERED: LIDOCAINE-MPF 2%, 2ML INFIL ONE (11:30)
[2017-12-05] MEDS ORDERED: LIDOCAINE-MPF 2%, 2ML ONE (11:32)
[2017-12-05 12:13] LABS: FIO2 ROOM AIR %
[2017-12-05 12:16] LABS: PH, VENOUS 7.006 pH (7.320-7.420)
[2017-12-05 12:23] LABS: ALANINE AMINOTRANSFERASE 18 U/L (12-78); ALBUMIN 3.6 g/dL (3.4-5.0); ANION GAP 24 mmol/L (5-15); CALCIUM 8.7 mg/dL (8.5-10.1); CHLORIDE 101 mmol/L (98-107); CREATININE 1.24 mg/dL (0.55-1.02)
[2017-12-05 12:30] LABS: ALKALINE PHOSPHATASE 134 U/L (45-117); BILIRUBIN,TOTAL 0.4 mg/dL (0.2-1.0)
[2017-12-05 12:33] LABS: MEAN CORPUSCULAR HEMOGLOBIN 31.1 pg (27.0-34.8); MEAN CORPUSCULAR HGB CONC 32.5 g/dL (32.4-35.8); MEAN CORPUSCULAR VOLUME 95.8 fL (80-100); MEAN PLATELET VOLUME 8.5 fL (7.4-10.4); PLATELET COUNT 489 x10^3/uL (130-400); RED BLOOD COUNT 3.78 x10^6/uL (3.82-5.3); RED CELL DISTRIBUTION WIDTH 16.3 % (9.6-15.2)
[2017-12-05 12:35] LABS: BASOPHILS # (AUTO) 0.05 x10^3/uL (0-0.1); BASOPHILS % (AUTO) 0 % (0-1); EOSINOPHILS # (AUTO) 0.02 x10^3/uL (0-0.4); EOSINOPHILS % (AUTO) 0 % (1-7); LYMPHOCYTES % (AUTO) 12 % (22-44); MD SCAN; MONOCYTES # (AUTO) 0.44 x10^3/uL (0.2-0.8); MONOCYTES % (AUTO) 3 % (2-9); NEUTROPHILS # (AUTO) 11.21 x10^3/uL (1.8-6.8); NEUTROPHILS % (AUTO) 84 % (42-75)
[2017-12-05] MEDS: REGULAR INSULIN 62.5 UNITS in SODIUM CHLORIDE 0.9% 249.375 ML IV PRN ×2 (13:02→13:14)
[2017-12-05 13:03] LABS: MICROSCOPIC INDICATED
[2017-12-05 13:16] LABS: CULTURE INDICATED? YES
[2017-12-05 13:31] LABS: ACETONE, SERUM Large (80mg/dL) mg/dL (Negative)
[2017-12-05 13:33] VITALS: BP 141/91
[2017-12-05] MEDS: D5%-0.45NACL+KCL 20MEQ 1,000 ML IV SCH ×2 (13:54→17:37)
[2017-12-05] MEDS ORDERED: ACETAMINOPHEN 325 MG TABLET PO PRN (14:00)
[2017-12-05] MEDS ORDERED: POLYETHYLENE GLYCOL 17 GM PACKET PO PRN (14:00)
[2017-12-05] MEDS ORDERED: ONDANSETRON ODT 4 MG PO PRN (14:00)
[2017-12-05] MEDS ORDERED: ONDANSETRON 2MG/ML, 2ML IVPush PRN (14:00)
[2017-12-05] MEDS ORDERED: REGULAR INSULIN 62.5 UNITS in SODIUM CHLORIDE 0.9% 249.375 ML IV PRN (14:00)
[2017-12-05] MEDS ORDERED: BISACODYL 10 MG SUPP PR PRN (14:00)
[2017-12-05] MEDS: SODIUM CHLORIDE 0.9% 1,000 ML IV SCH ×2 (14:02→19:36)
[2017-12-05] MEDS: ENOXAPARIN 40 MG/0.4 ML SQ SCH (14:03)
[2017-12-05 16:24] LABS: HEMOGLOBIN A1C 12.2 % (4.2-6.3)
[2017-12-05] MEDS ORDERED: ALBUTEROL SULFATE 2.5 MG/3 ML NPPB PRN (18:00)
[2017-12-05 18:31] LABS: CALCIUM 8.2 mg/dL (8.5-10.1); CHLORIDE 114 mmol/L (98-107)
[2017-12-05 18:33] LABS: CREATININE 1.17 mg/dL (0.55-1.02)
[2017-12-05 18:41] LABS: ANION GAP 17 mmol/L (5-15)
[2017-12-05 22:59] LABS: ANION GAP 11 mmol/L (5-15); CALCIUM 7.9 mg/dL (8.5-10.1); CHLORIDE 112 mmol/L (98-107); CREATININE 1.19 mg/dL (0.55-1.02)
[2017-12-06] MEDS: SODIUM CHLORIDE 0.9% 1,000 ML IV SCH ×2 (00:27→08:12)
[2017-12-06] MEDS: D5%-0.45NACL+KCL 20MEQ 1,000 ML IV SCH ×2 (00:27→07:38)
[2017-12-06 03:11] LABS: ANION GAP 7 mmol/L (5-15); CHLORIDE 113 mmol/L (98-107); CREATININE 1.17 mg/dL (0.55-1.02)
[2017-12-06 04:00] VITALS: BP 102/61
[2017-12-06 06:32] LABS: BASOPHILS # (AUTO) 0.04 x10^3/uL (0-0.1); BASOPHILS % (AUTO) 1 % (0-1); EOSINOPHILS # (AUTO) 0.03 x10^3/uL (0-0.4); EOSINOPHILS % (AUTO) 0 % (1-7); LYMPHOCYTES # (AUTO) 1.19 x10^3/uL (1-3.4); LYMPHOCYTES % (AUTO) 14 % (22-44); MD NO; MEAN CORPUSCULAR HEMOGLOBIN 31.9 pg (27.0-34.8); MEAN CORPUSCULAR HGB CONC 33.9 g/dL (32.4-35.8); MEAN CORPUSCULAR VOLUME 94.2 fL (80-100); MEAN PLATELET VOLUME 7.5 fL (7.4-10.4); MONOCYTES # (AUTO) 0.26 x10^3/uL (0.2-0.8); MONOCYTES % (AUTO) 3 % (2-9); NEUTROPHILS % (AUTO) 82 % (42-75); PLATELET COUNT 295 x10^3/uL (130-400); RED BLOOD COUNT 2.93 x10^6/uL (3.82-5.3); RED CELL DISTRIBUTION WIDTH 16.7 % (9.6-15.2)
[2017-12-06 06:42] LABS: ALBUMIN 2.8 g/dL (3.4-5.0); ANION GAP 11 mmol/L (5-15); CALCIUM 7.8 mg/dL (8.5-10.1); CHLORIDE 110 mmol/L (98-107)
[2017-12-06 06:52] LABS: ALANINE AMINOTRANSFERASE 13 U/L (12-78); ALKALINE PHOSPHATASE 87 U/L (45-117); BILIRUBIN,TOTAL 0.3 mg/dL (0.2-1.0); CHOL/HDL RATIO 4.2; CHOLESTEROL, TOTAL 121 mg/dL (140-239); CREATININE 1.16 mg/dL (0.55-1.02); HDL CHOL % 24 % (28-40); HDL CHOLESTEROL (DIRECT) 29 mg/dL (40-60); LDL CHOLESTEROL,CALCULATED 54 mg/dL (54-169); LDL/HDL RATIO 1.9 (0.5-3.0); THYROID STIMULATING HORMONE 0.421 mIU/L (0.358-3.740); TRIGLYCERIDES 191 mg/dL (50-200); VLDL CHOLESTEROL 38 mg/dL (0-25)
[2017-12-06] MEDS ORDERED: SODIUM PHOSPHATE 10 MMOL in SODIUM CHLORIDE 0.9% 500 ML IV ONE (07:30)
[2017-12-06] MEDS: SENNA/DOCUSATE TABLET PO SCH (07:38)
[2017-12-06] MEDS ORDERED: MAGNESIUM SULFATE PMX 4GM/100M 100 ML IVPB ONE (08:00)
[2017-12-06] MEDS ORDERED: INSULIN GLARGINE 100 UNITS/ML, PEN SQ-INSULIN SCH (09:00)
[2017-12-06] MEDS ORDERED: ERGOCALCIFEROL 50,000 UNIT CAPSULE PO SCH (10:30)
[2017-12-06 10:49] VITALS: BP 105/69
[2017-12-06] MEDS: INSULIN LISPRO 100 UNITS/ML, PEN SQ-INSULIN SCH ×4 (11:12→22:17)
[2017-12-06 12:45] VITALS: BP 103/65
[2017-12-06] MEDS ORDERED: SODIUM CHLORIDE 0.9% 1,000 ML IV SCH (13:42)
[2017-12-06] MEDS: ENOXAPARIN 40 MG/0.4 ML SQ SCH (14:13)
[2017-12-06 19:24] VITALS: BP 116/79
[2017-12-06] MEDS ORDERED: DIPHENHYDRAMINE 25 MG CAPSULE PO ONE (20:30)
[2017-12-06] MEDS: ATORVASTATIN 10 MG TABLET PO SCH (22:16)
[2017-12-06] MEDS: INSULIN GLARGINE 100 UNITS/ML, PEN SQ-INSULIN SCH (22:17)
[2017-12-07 02:29] VITALS: BP 103/62
[2017-12-07 06:23] LABS: ANION GAP 8 mmol/L (5-15); CHLORIDE 112 mmol/L (98-107)
[2017-12-07 06:24] LABS: CREATININE 0.95 mg/dL (0.55-1.02)
[2017-12-07] MEDS: INSULIN LISPRO 100 UNITS/ML, PEN SQ-INSULIN SCH ×4 (07:00→22:10)
[2017-12-07 07:24] VITALS: BP 147/76
[2017-12-07 07:36] VITALS: BP 113/79
[2017-12-07] MEDS ORDERED: POTASSIUM CHLORIDE 20 MEQ TAB.ER.PRT PO ONE (08:00)
[2017-12-07] MEDS: SENNA/DOCUSATE TABLET PO SCH (09:12)
[2017-12-07] MEDS: INSULIN GLARGINE 100 UNITS/ML, PEN SQ-INSULIN SCH ×2 (09:14→22:10)
[2017-12-07 13:24] VITALS: BP 116/79
[2017-12-07] MEDS ORDERED: SODIUM CHLORIDE 0.9% 1,000 ML IV SCH (13:42)
[2017-12-07] MEDS: SODIUM CHLORIDE 0.9% 1,000 ML IV SCH ×2 (14:46→23:42)
[2017-12-07] MEDS: ENOXAPARIN 40 MG/0.4 ML SQ SCH (14:47)
[2017-12-07 20:45] VITALS: BP 106/71
[2017-12-07] MEDS ORDERED: INSULIN GLARGINE 100 UNITS/ML, PEN SQ-INSULIN SCH (21:00)
[2017-12-07] MEDS: ATORVASTATIN 10 MG TABLET PO SCH (22:09)
[2017-12-08 00:46] VITALS: BP 120/84
[2017-12-08 04:05] VITALS: BP 104/78
[2017-12-08] MEDS: INSULIN LISPRO 100 UNITS/ML, PEN SQ-INSULIN SCH ×2 (07:00→11:32)
[2017-12-08 07:48] VITALS: BP 130/87
[2017-12-08] MEDS: SENNA/DOCUSATE TABLET PO SCH (07:59)
[2017-12-08] MEDS: INSULIN GLARGINE 100 UNITS/ML, PEN SQ-INSULIN SCH (09:31)
[2017-12-08 14:36] VITALS: BP 120/84
== END 2017-12-08 17:30 | disposition home or self-care (01) | DRG 682 ==
LOC: ED 11:05 → EDIP 12:52 → CCU 13:28 → 4NOR 12-06 10:43
PROVIDERS: ADMIT Internal Medicine; ATTEND Internal Medicine
DX: N17.0 Acute kidney failure with tubular necrosis (principal); E10.10 Type 1 diabetes mellitus with ketoacidosis without coma; R57.1 Hypovolemic shock; E87.1 Hypo-osmolality and hyponatremia; E55.9 Vitamin D deficiency, unspecified; E78.5 Hyperlipidemia, unspecified; J45.909 Unspecified asthma, uncomplicated; Z83.3 Family history of diabetes mellitus; Z91.19 Patient's noncompliance with other medical treatment and regimen; Z53.20 Procedure and treatment not carried out because of patient's decision for unspecified reasons; E66.9 Obesity, unspecified; Z68.29 Body mass index [BMI] 29.0-29.9, adult
CPT/HCPCS: 36415; 99291; S0028; 71045; 80048; 80053; 80061; 80307; 81001; 81025; 82010; 82803; 82947; 82962; 83036; 83690; 83735; 83930; 84100; 84443; 84703; 85025; 87040; 87081; 87086; 93005; 96361; 96372; 96374; G0378; J1650; J2550; J3490; J1815; J3475; J3480; J7030; J7040; Q0163

== ENCOUNTER 2017-12-12 14:14 | Inpatient (IN) | payer MEDICAID ==
[~2017-12-12] VITALS: Ht 165.1 cm; Wt 81.0 kg
[~2017-12-12 14:14] MED LIST changes: +ATOR10TA9 PO
[2017-12-12] MEDS ORDERED: SODIUM CHLORIDE 0.9% 1,000ML IVBOLUS ONE (14:30)
[2017-12-12 15:05] LABS: ALANINE AMINOTRANSFERASE 19 U/L (12-78); ALBUMIN 3.9 g/dL (3.4-5.0); ANION GAP 32 mmol/L (5-15); BASOPHILS # (AUTO) 0.04 x10^3/uL (0-0.1); BASOPHILS % (AUTO) 0 % (0-1); CALCIUM 9.3 mg/dL (8.5-10.1); CHLORIDE 89 mmol/L (98-107); EOSINOPHILS # (AUTO) 0.01 x10^3/uL (0-0.4); EOSINOPHILS % (AUTO) 0 % (1-7); LYMPHOCYTES # (AUTO) 1.76 x10^3/uL (1-3.4); LYMPHOCYTES % (AUTO) 11 % (22-44); MD NO; MEAN CORPUSCULAR HEMOGLOBIN 30.2 pg (27.0-34.8); MEAN CORPUSCULAR HGB CONC 31.4 g/dL (32.4-35.8); MEAN CORPUSCULAR VOLUME 96.3 fL (80-100); MEAN PLATELET VOLUME 8.9 fL (7.4-10.4); MONOCYTES # (AUTO) 0.63 x10^3/uL (0.2-0.8); MONOCYTES % (AUTO) 4 % (2-9); NEUTROPHILS # (AUTO) 13.21 x10^3/uL (1.8-6.8); NEUTROPHILS % (AUTO) 84 % (42-75); PLATELET COUNT 519 x10^3/uL (130-400); RED BLOOD COUNT 4.17 x10^6/uL (3.82-5.3); RED CELL DISTRIBUTION WIDTH 16.6 % (9.6-15.2)
[2017-12-12 15:07] LABS: ALKALINE PHOSPHATASE 155 U/L (45-117); BILIRUBIN,TOTAL 0.5 mg/dL (0.2-1.0); TOTAL PROTEIN 8.8 g/dL (6.4-8.2)
[2017-12-12 15:23] LABS: CREATININE 1.65 mg/dL (0.55-1.02)
[2017-12-12 15:54] LABS: ACETONE, SERUM Large (80mg/dL) mg/dL (Negative)
[2017-12-12] MEDS ORDERED: LIDOCAINE-MPF 2%, 2ML ONE (15:55)
[2017-12-12] MEDS ORDERED: SODIUM CHLORIDE FLUSH 10ML SYR IVF PRN (16:00)
[2017-12-12 16:09] LABS: MICROSCOPIC NOT IND
[2017-12-12 16:22] LABS: CULTURE INDICATED? NO
[2017-12-12] MEDS ORDERED: DOCUSATE 100 MG CAPSULE PO PRN (16:30)
[2017-12-12] MEDS ORDERED: PROMETHAZINE 25 MG/ML, 1ML IM PRN (16:30)
[2017-12-12] MEDS: D5%-0.45% NACL 1,000 ML IV SCH (16:30)
[2017-12-12] MEDS ORDERED: hydrALAzine 20 MG/ML, 1ML IVPush PRN (16:30)
[2017-12-12] MEDS ORDERED: BISACODYL 10 MG SUPP PR PRN (16:30)
[2017-12-12] MEDS ORDERED: LIDODERM 5% PATCH TD PRN (16:30)
[2017-12-12] MEDS ORDERED: ACETAMINOPHEN 325 MG TABLET PO PRN (16:30)
[2017-12-12] MEDS ORDERED: ONDANSETRON 2MG/ML, 2ML IVPush PRN (16:30)
[2017-12-12] MEDS ORDERED: POLYETHYLENE GLYCOL 17 GM PACKET PO PRN (16:30)
[2017-12-12] MEDS ORDERED: ONDANSETRON ODT 4 MG ONE (16:51)
[2017-12-12] MEDS ORDERED: ALBUTEROL SULFATE 2.5 MG/3 ML NPPB PRN (17:00)
[2017-12-12 17:04] LABS: ALBUMIN 3.7 g/dL (3.4-5.0); ANION GAP 31 mmol/L (5-15); CALCIUM 8.6 mg/dL (8.5-10.1); CHLORIDE 96 mmol/L (98-107)
[2017-12-12] MEDS: SODIUM CHLORIDE 0.9% 1,000 ML IV SCH (18:01)
[2017-12-12] MEDS: REGULAR INSULIN 62.5 UNITS in SODIUM CHLORIDE 0.9% 249.375 ML IV PRN (18:19)
[2017-12-12] MEDS ORDERED: KETOROLAC 30 MG/1 ML IVPush PRN (19:00)
[2017-12-12] MEDS: BUTALB/APAP/CAFFEINE 50MG/325MG/40MG PO PRN ×2 (19:51→22:30)
[2017-12-12 20:41] LABS: ALBUMIN 3.7 g/dL (3.4-5.0); ANION GAP 30 mmol/L (5-15); CALCIUM 8.4 mg/dL (8.5-10.1); CHLORIDE 103 mmol/L (98-107); CREATININE 1.74 mg/dL (0.55-1.02)
[2017-12-12] MEDS: HEPARIN 5,000 UNITS/ML, 1ML SQ SCH (21:40)
[2017-12-13 00:47] LABS: ALBUMIN 3.5 g/dL (3.4-5.0); ANION GAP 25 mmol/L (5-15); CALCIUM 8.2 mg/dL (8.5-10.1); CHLORIDE 109 mmol/L (98-107); CREATININE 1.43 mg/dL (0.55-1.02)
[2017-12-13] MEDS: SODIUM CHLORIDE 0.9% 1,000 ML IV SCH ×3 (02:24→16:30)
[2017-12-13] MEDS: D5%-0.45% NACL 1,000 ML IV SCH ×2 (03:22→16:46)
[2017-12-13] MEDS: BUTALB/APAP/CAFFEINE 50MG/325MG/40MG PO PRN (04:58)
[2017-12-13] MEDS: HEPARIN 5,000 UNITS/ML, 1ML SQ SCH ×3 (04:58→22:10)
[2017-12-13 05:04] LABS: ALANINE AMINOTRANSFERASE 18 U/L (12-78); ALBUMIN 3.4 g/dL (3.4-5.0); ANION GAP 16 mmol/L (5-15); CALCIUM 8.3 mg/dL (8.5-10.1); CHLORIDE 112 mmol/L (98-107); CREATININE 1.61 mg/dL (0.55-1.02)
[2017-12-13 05:06] LABS: ALKALINE PHOSPHATASE 119 U/L (45-117); BILIRUBIN,TOTAL 0.5 mg/dL (0.2-1.0); TOTAL PROTEIN 7.7 g/dL (6.4-8.2)
[2017-12-13 05:10] LABS: BASOPHILS # (AUTO) 0.04 x10^3/uL (0-0.1); BASOPHILS % (AUTO) 0 % (0-1); EOSINOPHILS % (AUTO) 0 % (1-7); LYMPHOCYTES # (AUTO) 3.47 x10^3/uL (1-3.4); LYMPHOCYTES % (AUTO) 21 % (22-44); MD NO; MEAN CORPUSCULAR HEMOGLOBIN 30.3 pg (27.0-34.8); MEAN CORPUSCULAR HGB CONC 32.7 g/dL (32.4-35.8); MEAN CORPUSCULAR VOLUME 92.6 fL (80-100); MEAN PLATELET VOLUME 7.3 fL (7.4-10.4); MONOCYTES # (AUTO) 1.08 x10^3/uL (0.2-0.8); MONOCYTES % (AUTO) 7 % (2-9); NEUTROPHILS % (AUTO) 72 % (42-75); PLATELET COUNT 462 x10^3/uL (130-400); RED BLOOD COUNT 3.66 x10^6/uL (3.82-5.3)
[2017-12-13] MEDS: PANTOPRAZOLE 40 MG IV IVPush SCH (06:06)
[2017-12-13 09:07] LABS: ALBUMIN 3.3 g/dL (3.4-5.0); ANION GAP 19 mmol/L (5-15); CALCIUM 8.3 mg/dL (8.5-10.1); CHLORIDE 109 mmol/L (98-107); CREATININE 1.34 mg/dL (0.55-1.02)
[2017-12-13] MEDS: NYSTATIN TOPICAL POWDER 15GM TP SCH ×3 (12:00→22:10)
[2017-12-13 13:49] LABS: ANION GAP 16 mmol/L (5-15); CALCIUM 8.1 mg/dL (8.5-10.1); CHLORIDE 102 mmol/L (98-107)
[2017-12-13] MEDS: REGULAR INSULIN 62.5 UNITS in SODIUM CHLORIDE 0.9% 249.375 ML IV PRN (16:46)
[2017-12-13 17:11] LABS: ANION GAP 12 mmol/L (5-15); CALCIUM 8.1 mg/dL (8.5-10.1); CHLORIDE 104 mmol/L (98-107); CREATININE 1.33 mg/dL (0.55-1.02)
[2017-12-13 21:22] LABS: ANION GAP 14 mmol/L (5-15); CALCIUM 8.2 mg/dL (8.5-10.1); CHLORIDE 107 mmol/L (98-107); CREATININE 1.11 mg/dL (0.55-1.02)
[2017-12-14] MEDS: SODIUM CHLORIDE 0.9% 1,000 ML IV SCH ×3 (00:30→17:14)
[2017-12-14 04:43] LABS: ANION GAP 8 mmol/L (5-15); CALCIUM 8.1 mg/dL (8.5-10.1); CHLORIDE 112 mmol/L (98-107); CREATININE 1.13 mg/dL (0.55-1.02)
[2017-12-14 04:46] LABS: BASOPHILS # (AUTO) 0.01 x10^3/uL (0-0.1); BASOPHILS % (AUTO) 0 % (0-1); EOSINOPHILS # (AUTO) 0.04 x10^3/uL (0-0.4); EOSINOPHILS % (AUTO) 1 % (1-7); LYMPHOCYTES # (AUTO) 2.16 x10^3/uL (1-3.4); LYMPHOCYTES % (AUTO) 29 % (22-44); MD NO; MEAN CORPUSCULAR HEMOGLOBIN 30.9 pg (27.0-34.8); MEAN CORPUSCULAR HGB CONC 33.2 g/dL (32.4-35.8); MEAN PLATELET VOLUME 6.9 fL (7.4-10.4); MONOCYTES # (AUTO) 0.55 x10^3/uL (0.2-0.8); MONOCYTES % (AUTO) 7 % (2-9); NEUTROPHILS # (AUTO) 4.67 x10^3/uL (1.8-6.8); NEUTROPHILS % (AUTO) 63 % (42-75); PLATELET COUNT 285 x10^3/uL (130-400); RED BLOOD COUNT 3.05 x10^6/uL (3.82-5.3); RED CELL DISTRIBUTION WIDTH 16.5 % (9.6-15.2)
[2017-12-14] MEDS ORDERED: POTASSIUM CHLORIDE 20 MEQ TAB.ER.PRT PO ONE ×2 (05:30→08:00)
[2017-12-14] MEDS ORDERED: MAGNESIUM SULFATE PMX 2GM/50ML 50 ML IV ONE ×2 (05:30→08:00)
[2017-12-14] MEDS: HEPARIN 5,000 UNITS/ML, 1ML SQ SCH ×3 (05:34→20:50)
[2017-12-14] MEDS: NYSTATIN TOPICAL POWDER 15GM TP SCH (06:32)
[2017-12-14] MEDS: PANTOPRAZOLE 40 MG IV IVPush SCH (07:14)
[2017-12-14] MEDS: INSULIN LISPRO 100 UNITS/ML, PEN SQ-INSULIN SCH ×4 (08:00→20:52)
[2017-12-14] MEDS ORDERED: SODIUM PHOSPHATE 20 MMOL in SODIUM CHLORIDE 0.9% 500 ML IV ONE (08:00)
[2017-12-14] MEDS: INSULIN GLARGINE 100 UNITS/ML, PEN SQ-INSULIN SCH ×2 (08:35→20:51)
[2017-12-14 13:44] VITALS: BP 108/69
[2017-12-14] MEDS ORDERED: NYSTATIN TOPICAL POWDER 15GM TP PRN (14:00)
[2017-12-14] MEDS ORDERED: D5%-0.45% NACL 1,000 ML IV SCH (16:30)
[2017-12-14 18:38] VITALS: BP 127/84
[2017-12-14 23:41] VITALS: BP 95/69
[2017-12-15] MEDS: SODIUM CHLORIDE 0.9% 1,000 ML IV SCH ×2 (03:17→11:00)
[2017-12-15 04:31] LABS: ANION GAP 8 mmol/L (5-15); CHLORIDE 116 mmol/L (98-107); CREATININE 0.99 mg/dL (0.55-1.02)
[2017-12-15] MEDS: HEPARIN 5,000 UNITS/ML, 1ML SQ SCH (05:33)
[2017-12-15] MEDS: INSULIN LISPRO 100 UNITS/ML, PEN SQ-INSULIN SCH ×2 (07:30→11:28)
[2017-12-15 09:20] VITALS: BP 122/81
[2017-12-15] MEDS: INSULIN GLARGINE 100 UNITS/ML, PEN SQ-INSULIN SCH (10:03)
[2017-12-15 13:22] VITALS: BP 119/74
== END 2017-12-15 14:21 | disposition home or self-care (01) | DRG 682 ==
LOC: ED 15:52 → EDIP 15:53 → ED 16:33 → CCU 18:00 → 3NE 12-14 13:40 → DCLOUNGE 12-15 14:06
PROVIDERS: ADMIT Hospitalist; ATTEND Hospitalist
PROC: 02HV33Z Insertion of Infusion Device into Superior Vena Cava, Percutaneous Approach (ICD-10-PCS; principal; 2017-12-12)
PROC: B548ZZA Ultrasonography of Superior Vena Cava, Guidance (ICD-10-PCS; 2017-12-12)
DX: N17.0 Acute kidney failure with tubular necrosis (principal); E10.10 Type 1 diabetes mellitus with ketoacidosis without coma; E55.9 Vitamin D deficiency, unspecified; E86.0 Dehydration; E87.5 Hyperkalemia; Z79.4 Long term (current) use of insulin; Z91.11 Patient's noncompliance with dietary regimen; Z91.14 Patient's other noncompliance with medication regimen; R62.50 Unspecified lack of expected normal physiological development in childhood; Z83.3 Family history of diabetes mellitus
CPT/HCPCS: 36415; 36569; 76937; 77001; 80048; 80053; 81003; 82010; 82040; 82306; 82803; 82947; 82962; 83690; 83735; 84100; 85025; 87040; 87081; 93005; 99285; G0378; J1644; J1815; J3490; C1751; C9113; J3475; J7030; J7040; J7050

== ENCOUNTER 2017-12-19 10:56 | Inpatient (IN) | payer MEDICAID ==
[~2017-12-19] VITALS: Ht 165.1 cm; Wt 82.9 kg
[2017-12-19] MEDS ORDERED: METOCLOPRAMIDE 5 MG/ML, 2ML IVPush ONE (12:00)
[2017-12-19] MEDS ORDERED: SODIUM CHLORIDE 0.9% 1,000ML IVBOLUS ONE (12:00)
[2017-12-19] MEDS ORDERED: METOCLOPRAMIDE 5 MG/ML, 2ML ONE (12:21)
[2017-12-19 12:23] LABS: FIO2 ROOM AIR %
[2017-12-19 12:26] LABS: PH, VENOUS 7.009 pH (7.320-7.420)
[2017-12-19] MEDS ORDERED: PLEASE ENTER WEIGHT MC SCH (12:30)
[2017-12-19 12:31] LABS: ALBUMIN 3.9 g/dL (3.4-5.0); CALCIUM 9.8 mg/dL (8.5-10.1); CHLORIDE 82 mmol/L (98-107)
[2017-12-19 12:35] LABS: ACETONE, SERUM Large (80mg/dL) mg/dL (Negative)
[2017-12-19 12:37] LABS: ALANINE AMINOTRANSFERASE 18 U/L (12-78); ALKALINE PHOSPHATASE 178 U/L (45-117); BILIRUBIN,TOTAL 0.5 mg/dL (0.2-1.0); CREATININE 2.33 mg/dL (0.55-1.02); TOTAL PROTEIN 9.3 g/dL (6.4-8.2)
[2017-12-19 12:41] LABS: MEAN CORPUSCULAR HEMOGLOBIN 30.7 pg (27.0-34.8); MEAN CORPUSCULAR HGB CONC 30.4 g/dL (32.4-35.8); MEAN CORPUSCULAR VOLUME 100.8 fL (80-100); MEAN PLATELET VOLUME 8.8 fL (7.4-10.4); PLATELET COUNT 661 x10^3/uL (130-400); RED BLOOD COUNT 4.24 x10^6/uL (3.82-5.3); RED CELL DISTRIBUTION WIDTH 17.5 % (9.6-15.2)
[2017-12-19 12:46] LABS: ANION GAP 33 mmol/L (5-15)
[2017-12-19] MEDS ORDERED: INSULIN REGULAR 100 UNITS/ML, 3ML VIAL IVPush ONE (13:00)
[2017-12-19] MEDS ORDERED: INSULIN REGULAR 100 UNITS/ML, 3ML VIAL ONE (13:03)
[2017-12-19 13:39] LABS: MD YES
[2017-12-19 13:41] LABS: LYMPH#(MANUAL) 3.02 x10^3/uL (1-3.4); LYMPHS% (MANUAL) 13 % (22-44); MONOS#(MANUAL) 0.46 x10^3/uL (0.3-2.7); MONOS% (MANUAL) 2 % (2-9); SEG#(MANUAL) 19.72 x10^3/uL (1.8-6.8); SEGS% (MANUAL) 85 % (42-75)
[2017-12-19 13:42] LABS: <PLATELET ESTIMATE> INCREASED; <PLT MORPHOLOGY> NORMAL PLT MORPH; ANISOCYTOSIS 1+; POLYCHROMASIA 1+
[2017-12-19] MEDS ORDERED: LIDODERM 5% PATCH TD PRN (14:00)
[2017-12-19] MEDS ORDERED: SODIUM BICARBONATE 1 MEQ/ML, 50ML VIAL IVPush ONE (14:00)
[2017-12-19] MEDS ORDERED: ALBUTEROL SULFATE 2.5 MG/3 ML NPPB ONE (14:00)
[2017-12-19] MEDS ORDERED: POLYETHYLENE GLYCOL 17 GM PACKET PO PRN (14:00)
[2017-12-19] MEDS ORDERED: BISACODYL 10 MG SUPP PR PRN (14:00)
[2017-12-19] MEDS ORDERED: hydrALAzine 20 MG/ML, 1ML IVPush PRN (14:00)
[2017-12-19] MEDS ORDERED: ACETAMINOPHEN 325 MG TABLET PO PRN (14:00)
[2017-12-19] MEDS ORDERED: CALCIUM GLUCONATE 4.6 MEQ in SODIUM CHLORIDE 0.9% 50 ML IV ONE (14:00)
[2017-12-19] MEDS ORDERED: ONDANSETRON 2MG/ML, 2ML IVPush PRN (14:00)
[2017-12-19] MEDS ORDERED: REGULAR INSULIN 62.5 UNITS in SODIUM CHLORIDE 0.9% 249.375 ML IV PRN (14:00)
[2017-12-19] MEDS ORDERED: DOCUSATE 100 MG CAPSULE PO PRN (14:00)
[2017-12-19] MEDS ORDERED: KETOROLAC 30 MG/1 ML IV PRN (14:00)
[2017-12-19] MEDS ORDERED: ALBUTEROL 0.5%, 20ML ONE (14:16)
[2017-12-19] MEDS: SODIUM CHLORIDE 0.9% 1,000 ML IV SCH ×2 (14:31→23:28)
[2017-12-19] MEDS: HEPARIN 5,000 UNITS/ML, 1ML SQ SCH ×2 (14:39→23:27)
[2017-12-19 15:13] LABS: MICROSCOPIC INDICATED
[2017-12-19 15:26] LABS: CULTURE INDICATED? YES
[2017-12-19] MEDS: BUTALB/APAP/CAFFEINE 50MG/325MG/40MG PO PRN ×2 (15:31→19:35)
[2017-12-19 17:30] LABS: ANION GAP 33 mmol/L (5-15); CHLORIDE 101 mmol/L (98-107)
[2017-12-19 17:31] LABS: CALCIUM 8.3 mg/dL (8.5-10.1); CREATININE 1.99 mg/dL (0.55-1.02)
[2017-12-19 19:49] LABS: ANION GAP 25 mmol/L (5-15); CALCIUM 8.5 mg/dL (8.5-10.1); CHLORIDE 104 mmol/L (98-107); CREATININE 1.92 mg/dL (0.55-1.02)
[2017-12-19] MEDS ORDERED: FAMOTIDINE 20 MG/2 ML IVPush SCH ×2 (21:00)
[2017-12-19] MEDS: D5%-0.45% NACL 1,000 ML IV SCH (23:28)
[2017-12-20 00:46] LABS: ANION GAP 13 mmol/L (5-15); CALCIUM 7.7 mg/dL (8.5-10.1); CHLORIDE 104 mmol/L (98-107); CREATININE 1.45 mg/dL (0.55-1.02)
[2017-12-20 04:54] LABS: ALANINE AMINOTRANSFERASE 14 U/L (12-78); ALBUMIN 2.8 g/dL (3.4-5.0); ANION GAP 12 mmol/L (5-15); CALCIUM 7.3 mg/dL (8.5-10.1); CHLORIDE 104 mmol/L (98-107); CREATININE 1.31 mg/dL (0.55-1.02)
[2017-12-20 04:56] LABS: ALKALINE PHOSPHATASE 105 U/L (45-117); BASOPHILS # (AUTO) 0.09 x10^3/uL (0-0.1); BASOPHILS % (AUTO) 1 % (0-1); BILIRUBIN,TOTAL 0.3 mg/dL (0.2-1.0); EOSINOPHILS # (AUTO) 0.01 x10^3/uL (0-0.4); EOSINOPHILS % (AUTO) 0 % (1-7); LYMPHOCYTES # (AUTO) 2.85 x10^3/uL (1-3.4); LYMPHOCYTES % (AUTO) 28 % (22-44); MD NO; MEAN CORPUSCULAR HEMOGLOBIN 30.7 pg (27.0-34.8); MEAN CORPUSCULAR HGB CONC 33.4 g/dL (32.4-35.8); MEAN CORPUSCULAR VOLUME 91.9 fL (80-100); MONOCYTES # (AUTO) 0.74 x10^3/uL (0.2-0.8); MONOCYTES % (AUTO) 7 % (2-9); NEUTROPHILS % (AUTO) 64 % (42-75); PLATELET COUNT 443 x10^3/uL (130-400); RED BLOOD COUNT 2.97 x10^6/uL (3.82-5.3); RED CELL DISTRIBUTION WIDTH 16.8 % (9.6-15.2); TOTAL PROTEIN 6.3 g/dL (6.4-8.2)
[2017-12-20 05:12] VITALS: BP 112/45
[2017-12-20] MEDS ORDERED: MAGNESIUM SULFATE PMX 2GM/50ML 50 ML IV ONE ×2 (05:30→09:00)
[2017-12-20] MEDS ORDERED: MAGNESIUM SULFATE 4 GM in SODIUM CHLORIDE 0.9% 100 ML IV ONE (08:30)
[2017-12-20] MEDS ORDERED: INSULIN GLARGINE 100 UNITS/ML, PEN SQ-INSULIN SCH (08:30)
[2017-12-20] MEDS: SODIUM CHLORIDE 0.9% 1,000 ML IV SCH (09:00)
[2017-12-20] MEDS: HEPARIN 5,000 UNITS/ML, 1ML SQ SCH ×2 (09:12→17:25)
[2017-12-20] MEDS: D5%-0.45% NACL 1,000 ML IV SCH (09:30)
[2017-12-20] MEDS: NYSTATIN TOPICAL POWDER 15GM TP SCH ×3 (11:00→19:17)
[2017-12-20] MEDS: INSULIN LISPRO 100 UNITS/ML, PEN SQ-INSULIN SCH ×3 (12:04→22:45)
[2017-12-20 13:46] VITALS: BP 106/71
[2017-12-20] MEDS: INSULIN GLARGINE 100 UNITS/ML, PEN SQ-INSULIN SCH (17:39)
[2017-12-20] MEDS: FAMOTIDINE 20 MG TABLET PO SCH (20:03)
[2017-12-20 20:47] VITALS: BP 144/74
[2017-12-20] MEDS ORDERED: FAMOTIDINE 20 MG/2 ML IVPush SCH (21:00)
[2017-12-21] MEDS: HEPARIN 5,000 UNITS/ML, 1ML SQ SCH ×3 (00:22→16:12)
[2017-12-21] MEDS: NYSTATIN TOPICAL POWDER 15GM TP SCH ×3 (00:35→16:12)
[2017-12-21 02:37] VITALS: BP 106/68
[2017-12-21] MEDS: INSULIN LISPRO 100 UNITS/ML, PEN SQ-INSULIN SCH ×3 (04:37→16:15)
[2017-12-21 05:14] LABS: BASOPHILS # (AUTO) 0.03 x10^3/uL (0-0.1); BASOPHILS % (AUTO) 1 % (0-1); EOSINOPHILS # (AUTO) 0.02 x10^3/uL (0-0.4); EOSINOPHILS % (AUTO) 0 % (1-7); LYMPHOCYTES % (AUTO) 49 % (22-44); MD NO; MEAN CORPUSCULAR HEMOGLOBIN 30.5 pg (27.0-34.8); MEAN CORPUSCULAR HGB CONC 33.1 g/dL (32.4-35.8); MEAN CORPUSCULAR VOLUME 91.9 fL (80-100); MONOCYTES # (AUTO) 0.31 x10^3/uL (0.2-0.8); MONOCYTES % (AUTO) 6 % (2-9); NEUTROPHILS # (AUTO) 2.18 x10^3/uL (1.8-6.8); NEUTROPHILS % (AUTO) 44 % (42-75); PLATELET COUNT 308 x10^3/uL (130-400); RED BLOOD COUNT 2.99 x10^6/uL (3.82-5.3)
[2017-12-21 05:22] LABS: ANION GAP 8 mmol/L (5-15); CALCIUM 7.9 mg/dL (8.5-10.1); CHLORIDE 106 mmol/L (98-107)
[2017-12-21 05:23] LABS: CREATININE 1.14 mg/dL (0.55-1.02)
[2017-12-21] MEDS: INSULIN GLARGINE 100 UNITS/ML, PEN SQ-INSULIN SCH (06:13)
[2017-12-21 07:47] VITALS: BP 114/82
[2017-12-21] MEDS ORDERED: INSULIN GLARGINE 100 UNITS/ML, PEN SQ-INSULIN ONE (08:30)
[2017-12-21] MEDS: FAMOTIDINE 20 MG TABLET PO SCH (08:34)
[2017-12-21 13:27] VITALS: BP 110/73
[2017-12-21] MEDS ORDERED: INSULIN GLARGINE 100 UNITS/ML, PEN SQ-INSULIN SCH (18:00)
== END 2017-12-21 17:36 | disposition left against medical advice (07) | DRG 638 ==
LOC: ED 13:00 → CCU 13:01 → 4NOR 12-20 13:43
PROVIDERS: ADMIT Hospitalist; ATTEND Hospitalist
PROC: 02HV33Z Insertion of Infusion Device into Superior Vena Cava, Percutaneous Approach (ICD-10-PCS; principal; 2017-12-19)
PROC: B548ZZA Ultrasonography of Superior Vena Cava, Guidance (ICD-10-PCS; 2017-12-19)
DX: E11.10 Type 2 diabetes mellitus with ketoacidosis without coma (principal); N17.9 Acute kidney failure, unspecified; D72.828 Other elevated white blood cell count; E55.9 Vitamin D deficiency, unspecified; E86.0 Dehydration; E87.5 Hyperkalemia; Z59.0 Homelessness; Z79.4 Long term (current) use of insulin; Z91.14 Patient's other noncompliance with medication regimen
CPT/HCPCS: 36415; 71045; 80048; 80053; 81001; 82010; 82803; 82947; 82962; 83690; 83735; 83880; 84100; 84703; 85025; 87081; 87086; 94644; 96374; 96375; 99291; G0378; J0610; J1644; J1815; J7613; J2765; J3475; J7030; J7050; S0028

== ENCOUNTER 2018-02-18 16:09 | Inpatient (IN) | payer MEDICAID ==
[~2018-02-18] VITALS: Ht 165.1 cm; Wt 68.8 kg
[2018-02-18] MEDS ORDERED: SODIUM CHLORIDE 0.9% 1,000ML IVBOLUS ONE (17:00)
[2018-02-18 17:34] LABS: PH, VENOUS 7.312 pH (7.320-7.420)
[2018-02-18 17:42] LABS: BASOPHILS # (AUTO) 0.03 x10^3/uL (0-0.1); BASOPHILS % (AUTO) 0 % (0-1); EOSINOPHILS # (AUTO) 0.03 x10^3/uL (0-0.4); EOSINOPHILS % (AUTO) 0 % (1-7); LYMPHOCYTES # (AUTO) 1.54 x10^3/uL (1-3.4); LYMPHOCYTES % (AUTO) 21 % (22-44); MD NO; MEAN CORPUSCULAR HEMOGLOBIN 29.1 pg (27.0-34.8); MEAN CORPUSCULAR HGB CONC 32.1 g/dL (32.4-35.8); MEAN CORPUSCULAR VOLUME 90.7 fL (80-100); MEAN PLATELET VOLUME 8.6 fL (7.4-10.4); MONOCYTES # (AUTO) 0.32 x10^3/uL (0.2-0.8); MONOCYTES % (AUTO) 4 % (2-9); NEUTROPHILS # (AUTO) 5.35 x10^3/uL (1.8-6.8); NEUTROPHILS % (AUTO) 74 % (42-75); PLATELET COUNT 477 x10^3/uL (130-400); RED BLOOD COUNT 3.68 x10^6/uL (3.82-5.3)
[2018-02-18 17:48] LABS: ALANINE AMINOTRANSFERASE 35 U/L (12-78); ALBUMIN 3.5 g/dL (3.4-5.0); ANION GAP 8 mmol/L (5-15); CALCIUM 9.3 mg/dL (8.5-10.1); CHLORIDE 92 mmol/L (98-107); CREATININE 1.38 mg/dL (0.55-1.02)
[2018-02-18] MEDS ORDERED: LISI-167 PO (17:48)
[2018-02-18 17:50] LABS: ALKALINE PHOSPHATASE 258 U/L (45-117); BILIRUBIN,TOTAL 0.6 mg/dL (0.2-1.0); TOTAL PROTEIN 8.2 g/dL (6.4-8.2)
[2018-02-18] MEDS ORDERED: ONDA4TAB7 PO (17:50)
[2018-02-18 18:11] LABS: MICROSCOPIC NOT IND
[2018-02-18 18:20] LABS: CULTURE INDICATED? NO
[2018-02-18] MEDS ORDERED: ACETAMINOPHEN 500 MG TABLET ONE (18:22)
[2018-02-18 18:23] LABS: ACETONE, SERUM Moderate(40mg/dL) mg/dL (Negative)
[2018-02-18] MEDS ORDERED: INSULIN REGULAR 100 UNITS/ML, 3ML VIAL SQ-INSULIN ONE (18:30)
[2018-02-18] MEDS ORDERED: LACTATED RINGERS 1,000 ML IVBOLUS ONE (18:30)
[2018-02-18] MEDS ORDERED: INSULIN REGULAR 100 UNITS/ML, 3ML VIAL IVPush ONE (18:30)
[2018-02-18] MEDS ORDERED: ACETAMINOPHEN 500 MG TABLET PO ONE (18:30)
[2018-02-18] MEDS ORDERED: INSULIN REGULAR 100 UNITS/ML, 3ML VIAL ONE (18:41)
[2018-02-18] MEDS ORDERED: SODIUM CHLORIDE 0.9% 1,000 ML IV SCH (19:06)
[2018-02-18 19:09] LABS: HEMOGLOBIN A1C 12.6 % (4.2-6.3)
[2018-02-18] MEDS ORDERED: ACETAMINOPHEN 325 MG TABLET PO PRN (19:30)
[2018-02-18] MEDS ORDERED: BISACODYL 10 MG SUPP PR PRN (19:30)
[2018-02-18] MEDS ORDERED: ONDANSETRON 4 MG TABLET PO PRN (19:30)
[2018-02-18] MEDS ORDERED: POLYETHYLENE GLYCOL 17 GM PACKET PO PRN (19:30)
[2018-02-18] MEDS: HEPARIN 5,000 UNITS/ML, 1ML SQ SCH (22:07)
[2018-02-18] MEDS: INSULIN LISPRO 100 UNITS/ML, PEN SQ-INSULIN SCH (22:41)
[2018-02-18] MEDS: INSULIN GLARGINE 100 UNITS/ML, PEN SQ-INSULIN SCH (22:52)
[2018-02-19 00:52] LABS: ANION GAP 12 mmol/L (5-15); CALCIUM 8.7 mg/dL (8.5-10.1); CHLORIDE 101 mmol/L (98-107); CREATININE 0.93 mg/dL (0.55-1.02)
[2018-02-19 01:43] VITALS: BP 104/67
[2018-02-19] MEDS: INSULIN LISPRO 100 UNITS/ML, PEN SQ-INSULIN SCH (04:30)
[2018-02-19] MEDS: HEPARIN 5,000 UNITS/ML, 1ML SQ SCH (04:30)
[2018-02-19 06:50] LABS: MEAN CORPUSCULAR HEMOGLOBIN 29.4 pg (27.0-34.8); MEAN CORPUSCULAR HGB CONC 33.2 g/dL (32.4-35.8); MEAN CORPUSCULAR VOLUME 88.5 fL (80-100); MEAN PLATELET VOLUME 7.9 fL (7.4-10.4); PLATELET COUNT 443 x10^3/uL (130-400); RED BLOOD COUNT 3.15 x10^6/uL (3.82-5.3); RED CELL DISTRIBUTION WIDTH 19.1 % (9.6-15.2)
[2018-02-19 06:52] LABS: ALANINE AMINOTRANSFERASE 29 U/L (12-78); ANION GAP 8 mmol/L (5-15); CALCIUM 8.8 mg/dL (8.5-10.1); CHLORIDE 103 mmol/L (98-107)
[2018-02-19 06:55] LABS: ALKALINE PHOSPHATASE 162 U/L (45-117); BILIRUBIN,TOTAL 0.4 mg/dL (0.2-1.0); TOTAL PROTEIN 6.9 g/dL (6.4-8.2)
[2018-02-19 07:31] LABS: BASOPHILS # (AUTO) 0.09 x10^3/uL (0-0.1); BASOPHILS % (AUTO) 2 % (0-1); EOSINOPHILS # (AUTO) 0.12 x10^3/uL (0-0.4); EOSINOPHILS % (AUTO) 2 % (1-7); LYMPHOCYTES # (AUTO) 3.06 x10^3/uL (1-3.4); LYMPHOCYTES % (AUTO) 55 % (22-44); MD MORPH REVIEW ONLY; MONOCYTES # (AUTO) 0.31 x10^3/uL (0.2-0.8); MONOCYTES % (AUTO) 6 % (2-9); NEUTROPHILS # (AUTO) 1.95 x10^3/uL (1.8-6.8); NEUTROPHILS % (AUTO) 35 % (42-75)
[2018-02-19 07:32] LABS: ANISOCYTOSIS 1+; POLYCHROMASIA 1+
[2018-02-19 07:33] LABS: <PLATELET ESTIMATE> INCREASED; <PLT MORPHOLOGY> NORMAL PLT MORPH
[2018-02-19 08:32] VITALS: BP 105/71
[2018-02-19] MEDS ORDERED: SENNA/DOCUSATE TABLET PO SCH (09:00)
[2018-02-19] MEDS ORDERED: LISINOPRIL 10 MG TABLET PO SCH (09:00)
[2018-02-19] MEDS ORDERED: DEXTROSE 4 GM TAB.CHEW PO PRN (09:30)
[2018-02-19] MEDS ORDERED: DEXTROSE 50%, 50ML SYRINGE IVPush PRN (09:30)
[2018-02-19] MEDS ORDERED: GLUCAGON 1 MG IM PRN (09:30)
[2018-02-19] MEDS ORDERED: INSULIN LISPRO 100 UNITS/ML, PEN SQ-INSULIN SCH (11:00)
[2018-02-19] MEDS: INSULIN GLARGINE 100 UNITS/ML, PEN SQ-INSULIN SCH (11:10)
[2018-02-19] MEDS ORDERED: SODIUM CHLORIDE 0.9% 1,000 ML IV SCH (19:06)
[2018-02-19] MEDS ORDERED: SODIUM CHLORIDE FLUSH 10ML SYR IVF SCH (21:00)
== END 2018-02-19 14:42 | disposition home or self-care (01) | DRG 638 ==
LOC: ED 18:33 → EDIP 19:03 → 3NW 19:47
PROVIDERS: ADMIT Internal Medicine; ATTEND Internal Medicine
DX: E10.65 Type 1 diabetes mellitus with hyperglycemia (principal); E87.1 Hypo-osmolality and hyponatremia; D64.9 Anemia, unspecified; E55.9 Vitamin D deficiency, unspecified; E78.5 Hyperlipidemia, unspecified; E86.0 Dehydration; E87.5 Hyperkalemia; Z79.4 Long term (current) use of insulin; D47.3 Essential (hemorrhagic) thrombocythemia; R62.50 Unspecified lack of expected normal physiological development in childhood; Z88.8 Allergy status to other drugs, medicaments and biological substances; Z91.040 Latex allergy status
CPT/HCPCS: 36415; 80048; 80053; 81003; 82010; 82803; 82962; 83036; 83735; 84100; 85025; 93005; 96361; 96374; 96375; 99285; G0378; J1644; J1815; J7030; J7120

== ENCOUNTER 2018-02-21 14:22 | Inpatient (IN) | payer MEDICAID ==
[~2018-02-21] VITALS: Ht 165.1 cm; Wt 69.8 kg
[~2018-02-21 14:22] MED LIST changes: +LISI-167 PO; +ONDA4TAB7 PO
[2018-02-21 15:09] LABS: ALBUMIN 3.8 g/dL (3.4-5.0); ANION GAP 22 mmol/L (5-15); CALCIUM 9.8 mg/dL (8.5-10.1); CHLORIDE 96 mmol/L (98-107)
[2018-02-21] MEDS ORDERED: SODIUM CHLORIDE 0.9% 1,000 ML IV ONE (15:10)
[2018-02-21 15:16] LABS: ALANINE AMINOTRANSFERASE 40 U/L (12-78); ALKALINE PHOSPHATASE 234 U/L (45-117); BILIRUBIN,TOTAL 0.4 mg/dL (0.2-1.0); CREATININE 1.64 mg/dL (0.55-1.02); TOTAL PROTEIN 9.2 g/dL (6.4-8.2)
[2018-02-21] MEDS ORDERED: SODIUM CHLORIDE 0.9% 1,000ML IVBOLUS ONE (15:30)
[2018-02-21 15:32] LABS: MEAN CORPUSCULAR HEMOGLOBIN 28.7 pg (27.0-34.8); MEAN CORPUSCULAR HGB CONC 32.3 g/dL (32.4-35.8); MEAN CORPUSCULAR VOLUME 88.8 fL (80-100); MEAN PLATELET VOLUME 8.6 fL (7.4-10.4); PLATELET COUNT 679 x10^3/uL (130-400); RED BLOOD COUNT 4.25 x10^6/uL (3.82-5.3); RED CELL DISTRIBUTION WIDTH 18.9 % (9.6-15.2)
[2018-02-21 15:34] LABS: HEMOGRAM NOTE RECHECKED
[2018-02-21] MEDS ORDERED: ONDANSETRON 2MG/ML, 2ML IVPush PRN (16:00)
[2018-02-21] MEDS ORDERED: ONDANSETRON ODT 4 MG PO PRN (16:00)
[2018-02-21] MEDS ORDERED: IBUPROFEN 600 MG TABLET PO PRN (16:00)
[2018-02-21] MEDS ORDERED: SODIUM CHLORIDE FLUSH 10ML SYR IVF ONE (16:00)
[2018-02-21] MEDS ORDERED: ENOXAPARIN 40 MG/0.4 ML SQ SCH (16:00)
[2018-02-21] MEDS ORDERED: POLYETHYLENE GLYCOL 17 GM PACKET PO PRN (16:00)
[2018-02-21] MEDS ORDERED: BISACODYL 10 MG SUPP PR PRN (16:00)
[2018-02-21] MEDS ORDERED: POTASSIUM CHLORIDE 20 MEQ in SODIUM CHLORIDE 0.45% 1,000 ML IV SCH (16:00)
[2018-02-21] MEDS ORDERED: ACETAMINOPHEN 325 MG TABLET PO PRN (16:00)
[2018-02-21 16:06] LABS: BASOPHILS # (AUTO) 0.06 x10^3/uL (0-0.1); BASOPHILS % (AUTO) 1 % (0-1); EOSINOPHILS # (AUTO) 0.04 x10^3/uL (0-0.4); EOSINOPHILS % (AUTO) 1 % (1-7); LYMPHOCYTES # (AUTO) 2.95 x10^3/uL (1-3.4); LYMPHOCYTES % (AUTO) 40 % (22-44); MD SCAN; MONOCYTES # (AUTO) 0.36 x10^3/uL (0.2-0.8); MONOCYTES % (AUTO) 5 % (2-9); NEUTROPHILS # (AUTO) 3.92 x10^3/uL (1.8-6.8); NEUTROPHILS % (AUTO) 53 % (42-75)
[2018-02-21 16:10] LABS: MICROSCOPIC INDICATED
[2018-02-21 16:10] LABS: ACETONE, SERUM Moderate(40mg/dL) mg/dL (Negative)
[2018-02-21 16:18] LABS: CULTURE INDICATED? YES
[2018-02-21] MEDS: REGULAR INSULIN 62.5 UNITS in SODIUM CHLORIDE 0.9% 249.375 ML IV PRN ×2 (17:10→17:11)
[2018-02-21] MEDS: D5%-0.45NACL+KCL 20MEQ 1,000 ML IV SCH (17:10)
[2018-02-21] MEDS ORDERED: FLUCONAZOLE 200 MG/100 ML 100 ML IV SCH (17:30)
[2018-02-21 20:37] LABS: ANION GAP 14 mmol/L (5-15); CALCIUM 8.4 mg/dL (8.5-10.1); CHLORIDE 98 mmol/L (98-107); CREATININE 1.11 mg/dL (0.55-1.02)
[2018-02-22 00:48] LABS: ANION GAP 13 mmol/L (5-15); CALCIUM 7.7 mg/dL (8.5-10.1); CHLORIDE 100 mmol/L (98-107); CREATININE 1.16 mg/dL (0.55-1.02)
[2018-02-22] MEDS: D5%-0.45NACL+KCL 20MEQ 1,000 ML IV SCH (01:38)
[2018-02-22 04:00] VITALS: BP 93/54
[2018-02-22 04:59] LABS: BASOPHILS # (AUTO) 0.05 x10^3/uL (0-0.1); BASOPHILS % (AUTO) 1 % (0-1); EOSINOPHILS # (AUTO) 0.08 x10^3/uL (0-0.4); EOSINOPHILS % (AUTO) 2 % (1-7); LYMPHOCYTES # (AUTO) 2.16 x10^3/uL (1-3.4); LYMPHOCYTES % (AUTO) 50 % (22-44); MD NO; MEAN CORPUSCULAR HEMOGLOBIN 29.3 pg (27.0-34.8); MEAN CORPUSCULAR HGB CONC 33.2 g/dL (32.4-35.8); MEAN CORPUSCULAR VOLUME 88.3 fL (80-100); MEAN PLATELET VOLUME 7.9 fL (7.4-10.4); MONOCYTES # (AUTO) 0.31 x10^3/uL (0.2-0.8); MONOCYTES % (AUTO) 7 % (2-9); NEUTROPHILS # (AUTO) 1.71 x10^3/uL (1.8-6.8); NEUTROPHILS % (AUTO) 40 % (42-75); PLATELET COUNT 421 x10^3/uL (130-400); RED BLOOD COUNT 2.99 x10^6/uL (3.82-5.3); RED CELL DISTRIBUTION WIDTH 18.5 % (9.6-15.2)
[2018-02-22 05:04] LABS: CHLORIDE 106 mmol/L (98-107)
[2018-02-22 05:12] LABS: ALANINE AMINOTRANSFERASE 28 U/L (12-78); ALBUMIN 2.9 g/dL (3.4-5.0); ALKALINE PHOSPHATASE 134 U/L (45-117); ANION GAP 10 mmol/L (5-15); BILIRUBIN,TOTAL 0.3 mg/dL (0.2-1.0); CALCIUM 7.4 mg/dL (8.5-10.1); CREATININE 0.87 mg/dL (0.55-1.02); TOTAL PROTEIN 6.4 g/dL (6.4-8.2)
[2018-02-22] MEDS ORDERED: INSULIN LISPRO 100 UNITS/ML, PEN SQ-INSULIN SCH (08:00)
[2018-02-22] MEDS ORDERED: INSULIN GLARGINE 100 UNITS/ML, PEN SQ-INSULIN SCH (09:00)
[2018-02-22] MEDS ORDERED: FLUC200T PO (09:05)
== END 2018-02-22 11:00 | disposition home or self-care (01) | DRG 637 ==
LOC: ED 15:56 → EDIP 15:57 → ED 16:23 → CCU 17:34 → DCLOUNGE 02-22 10:45
PROVIDERS: ADMIT Family Medicine; ATTEND Family Medicine
PROC: 02HV33Z Insertion of Infusion Device into Superior Vena Cava, Percutaneous Approach (ICD-10-PCS; principal; 2018-02-21)
PROC: B548ZZA Ultrasonography of Superior Vena Cava, Guidance (ICD-10-PCS; 2018-02-21)
DX: E10.10 Type 1 diabetes mellitus with ketoacidosis without coma (principal); N17.0 Acute kidney failure with tubular necrosis; B37.49 Other urogenital candidiasis; E87.5 Hyperkalemia; E78.5 Hyperlipidemia, unspecified; E55.9 Vitamin D deficiency, unspecified; G89.29 Other chronic pain; Z91.14 Patient's other noncompliance with medication regimen; Z91.11 Patient's noncompliance with dietary regimen; Z79.4 Long term (current) use of insulin; Z91.19 Patient's noncompliance with other medical treatment and regimen; Z91.040 Latex allergy status; Z91.018 Allergy to other foods
CPT/HCPCS: 36415; 36569; 76937; 77001; 80048; 80053; 81001; 82010; 82800; 82962; 83690; 83735; 84100; 84703; 85025; 87081; 87086; 99285; G0378; J1650; J1815; C1751; J1450; J3480; J7030; J7050

== ENCOUNTER 2018-02-23 18:39 | Inpatient (IN) | payer MEDICAID ==
[~2018-02-23] VITALS: Ht 165.1 cm; Wt 71.3 kg
[~2018-02-23 18:39] MED LIST changes: +FLUC200T PO
[2018-02-23] MEDS ORDERED: SODIUM CHLORIDE 0.9% 1,000ML IVBOLUS ONE ×2 (19:30→22:00)
[2018-02-23] MEDS ORDERED: SODIUM CHLORIDE FLUSH 10ML SYR IVF ONE (19:30)
[2018-02-23] MEDS ORDERED: ONDANSETRON 2MG/ML, 2ML IVPush ONE (19:30)
[2018-02-23 19:33] LABS: PH, VENOUS 7.203 pH (7.320-7.420)
[2018-02-23 19:37] LABS: MICROSCOPIC NOT IND
[2018-02-23 19:42] LABS: CULTURE INDICATED? NO
[2018-02-23 19:45] LABS: MEAN CORPUSCULAR HEMOGLOBIN 29.2 pg (27.0-34.8); MEAN CORPUSCULAR VOLUME 91.4 fL (80-100); MEAN PLATELET VOLUME 8.4 fL (7.4-10.4); PLATELET COUNT 613 x10^3/uL (130-400); RED CELL DISTRIBUTION WIDTH 18.5 % (9.6-15.2)
[2018-02-23 19:47] LABS: ALBUMIN 4.1 g/dL (3.4-5.0); ANION GAP 24 mmol/L (5-15); CALCIUM 9.7 mg/dL (8.5-10.1); CHLORIDE 86 mmol/L (98-107)
[2018-02-23 20:08] LABS: BASOPHILS # (AUTO) 0.08 x10^3/uL (0-0.1); BASOPHILS % (AUTO) 1 % (0-1); EOSINOPHILS # (AUTO) 0.02 x10^3/uL (0-0.4); EOSINOPHILS % (AUTO) 0 % (1-7); LYMPHOCYTES # (AUTO) 2.27 x10^3/uL (1-3.4); LYMPHOCYTES % (AUTO) 35 % (22-44); MD SCAN; MONOCYTES # (AUTO) 0.32 x10^3/uL (0.2-0.8); MONOCYTES % (AUTO) 5 % (2-9); NEUTROPHILS # (AUTO) 3.73 x10^3/uL (1.8-6.8); NEUTROPHILS % (AUTO) 58 % (42-75)
[2018-02-23] MEDS ORDERED: INSULIN REGULAR 100 UNITS/ML, 3ML VIAL ONE (20:11)
[2018-02-23 20:19] LABS: ACETONE, SERUM Large (80mg/dL) mg/dL (Negative)
[2018-02-23] MEDS ORDERED: INSULIN REGULAR 100 UNITS/ML, 3ML VIAL SQ-INSULIN ONE (20:30)
[2018-02-23] MEDS ORDERED: REGULAR INSULIN 62.5 UNITS in SODIUM CHLORIDE 0.9% 249.375 ML IV PRN ×2 (20:30→21:13)
[2018-02-23] MEDS ORDERED: LIDOCAINE-MPF 1%, 5ML ONE (21:11)
[2018-02-23] MEDS ORDERED: POLYETHYLENE GLYCOL 17 GM PACKET PO PRN (21:30)
[2018-02-23] MEDS ORDERED: ONDANSETRON 2MG/ML, 2ML IVPush PRN (21:30)
[2018-02-23] MEDS ORDERED: ONDANSETRON ODT 4 MG PO PRN (21:30)
[2018-02-23] MEDS ORDERED: PROMETHAZINE 25 MG/ML, 1ML IM PRN (21:30)
[2018-02-23] MEDS ORDERED: ACETAMINOPHEN 325 MG TABLET PO PRN (21:30)
[2018-02-23] MEDS ORDERED: DOCUSATE 100 MG CAPSULE PO PRN (21:30)
[2018-02-23] MEDS ORDERED: KETOROLAC 30 MG/1 ML IV PRN (21:30)
[2018-02-23] MEDS ORDERED: hydrALAzine 20 MG/ML, 1ML IVPush PRN (21:30)
[2018-02-23] MEDS ORDERED: LABETALOL 5MG/ML, 20ML IVPush PRN (21:30)
[2018-02-23] MEDS ORDERED: BISACODYL 10 MG SUPP PR PRN (21:30)
[2018-02-23] MEDS: SODIUM CHLORIDE 0.9% 1,000 ML IV SCH ×2 (21:39→22:12)
[2018-02-23 21:54] LABS: HEMOGLOBIN A1C 13.5 % (4.2-6.3)
[2018-02-23 21:58] LABS: FREE T4 (FREE THYROXINE) 0.89 ng/dL (0.76-1.46); THYROID STIMULATING HORMONE 2.07 mIU/L (0.358-3.740)
[2018-02-23 22:37] VITALS: BP 116/74
[2018-02-23] MEDS: ENOXAPARIN 40 MG/0.4 ML SQ SCH (22:56)
[2018-02-24 00:40] LABS: AMPHETAMINE SCREEN, URINE Negative (Negative); BARBITURATE SCREEN, URINE Negative (Negative); BENZODIAZEPINE SCREEN, URINE Negative (Negative); CANNABINOID SCREEN, URINE Negative (Negative); COCAINE SCREEN, URINE Negative (Negative); METHADONE SCREEN, URINE Negative (Negative); OPIATE SCREEN, URINE Negative (Negative)
[2018-02-24] MEDS: D5%-0.45% NACL 1,000 ML IV PRN ×2 (00:49→06:04)
[2018-02-24 01:19] LABS: CHLORIDE 101 mmol/L (98-107)
[2018-02-24 01:20] LABS: ANION GAP 16 mmol/L (5-15); CALCIUM 8.4 mg/dL (8.5-10.1); CREATININE 1.43 mg/dL (0.55-1.02)
[2018-02-24 04:03] VITALS: BP 108/59
[2018-02-24 07:05] LABS: ANION GAP 11 mmol/L (5-15); CHLORIDE 102 mmol/L (98-107); CHOLESTEROL, TOTAL 191 mg/dL (140-239); CREATININE 0.95 mg/dL (0.55-1.02); TRIGLYCERIDES 438 mg/dL (50-200)
[2018-02-24 07:07] LABS: CHOL/HDL RATIO 7.1; HDL CHOL % 14 % (28-40); HDL CHOLESTEROL (DIRECT) 27 mg/dL (40-60)
[2018-02-24 07:41] LABS: BASOPHILS # (AUTO) 0.04 x10^3/uL (0-0.1); BASOPHILS % (AUTO) 1 % (0-1); EOSINOPHILS # (AUTO) 0.06 x10^3/uL (0-0.4); EOSINOPHILS % (AUTO) 1 % (1-7); LYMPHOCYTES # (AUTO) 1.95 x10^3/uL (1-3.4); LYMPHOCYTES % (AUTO) 24 % (22-44); MD SCAN; MEAN CORPUSCULAR HGB CONC 32.1 g/dL (32.4-35.8); MEAN CORPUSCULAR VOLUME 87.5 fL (80-100); MEAN PLATELET VOLUME 7.6 fL (7.4-10.4); MONOCYTES # (AUTO) 0.35 x10^3/uL (0.2-0.8); MONOCYTES % (AUTO) 4 % (2-9); NEUTROPHILS # (AUTO) 5.63 x10^3/uL (1.8-6.8); NEUTROPHILS % (AUTO) 70 % (42-75); PLATELET COUNT 422 x10^3/uL (130-400); RED CELL DISTRIBUTION WIDTH 18.3 % (9.6-15.2)
[2018-02-24] MEDS: SODIUM CHLORIDE 0.9% 1,000 ML IV SCH (08:25)
[2018-02-24] MEDS ORDERED: INSULIN GLARGINE 100 UNITS/ML, PEN SQ-INSULIN SCH (09:00)
[2018-02-24] MEDS: INSULIN LISPRO 100 UNITS/ML, PEN SQ-INSULIN SCH ×4 (11:31→21:09)
[2018-02-24 15:28] VITALS: BP 105/71
[2018-02-24 20:38] VITALS: BP 107/72
[2018-02-24] MEDS: INSULIN GLARGINE 100 UNITS/ML, PEN SQ-INSULIN SCH (21:09)
[2018-02-24] MEDS: ENOXAPARIN 40 MG/0.4 ML SQ SCH (21:10)
[2018-02-25 01:23] VITALS: BP 94/60
[2018-02-25 04:58] LABS: ANION GAP 9 mmol/L (5-15); CALCIUM 7.7 mg/dL (8.5-10.1); CHLORIDE 110 mmol/L (98-107)
[2018-02-25] MEDS: INSULIN LISPRO 100 UNITS/ML, PEN SQ-INSULIN SCH (07:50)
[2018-02-25 07:54] VITALS: BP 105/72
[2018-02-25] MEDS: INSULIN GLARGINE 100 UNITS/ML, PEN SQ-INSULIN SCH (08:33)
[2018-02-25] MEDS ORDERED: LISI-167 PO (10:48)
== END 2018-02-25 11:35 | disposition home or self-care (01) | DRG 637 ==
LOC: ED 19:03 → EDIP 21:14 → CCU 22:20 → 4NOR 02-24 15:21
PROVIDERS: ADMIT Internal Medicine; ATTEND Internal Medicine
PROC: 02HV33Z Insertion of Infusion Device into Superior Vena Cava, Percutaneous Approach (ICD-10-PCS; principal; 2018-02-23)
PROC: B5181ZA Fluoroscopy of Superior Vena Cava using Low Osmolar Contrast, Guidance (ICD-10-PCS; 2018-02-23)
DX: E10.10 Type 1 diabetes mellitus with ketoacidosis without coma (principal); N17.0 Acute kidney failure with tubular necrosis; N39.0 Urinary tract infection, site not specified; D64.9 Anemia, unspecified; E55.9 Vitamin D deficiency, unspecified; E78.5 Hyperlipidemia, unspecified; E86.0 Dehydration; I10 Essential (primary) hypertension; Z79.4 Long term (current) use of insulin; Z91.19 Patient's noncompliance with other medical treatment and regimen; Z88.8 Allergy status to other drugs, medicaments and biological substances; Z91.040 Latex allergy status
CPT/HCPCS: 36415; 36569; 76937; 77001; 80048; 80061; 80307; 81003; 82010; 82040; 82803; 82962; 83036; 83735; 84100; 84439; 84443; 84703; 85025; 87081; 96372; 96374; 99291; G0378; J1650; J1815; J1885; J2405; C1751; J7030; J7050

== ENCOUNTER 2018-03-09 05:39 | Observation (INO) | payer MEDICAID ==
[~2018-03-09] VITALS: Ht 165.1 cm; Wt 75.4 kg
[2018-03-09] MEDS ORDERED: METOCLOPRAMIDE 5 MG/ML, 2ML IVPush ONE (06:00)
[2018-03-09] MEDS ORDERED: SODIUM CHLORIDE 0.9% 1,000ML IVBOLUS ONE ×3 (06:00→09:00)
[2018-03-09] MEDS ORDERED: METOCLOPRAMIDE 5 MG/ML, 2ML ONE (06:20)
[2018-03-09] MEDS ORDERED: INSULIN REGULAR 100 UNITS/ML, 3ML VIAL ONE (06:21)
[2018-03-09] MEDS ORDERED: INSULIN REGULAR 100 UNITS/ML, 3ML VIAL IVPush ONE (06:30)
[2018-03-09 06:55] LABS: BASOPHILS # (AUTO) 0.03 x10^3/uL (0-0.1); BASOPHILS % (AUTO) 1 % (0-1); EOSINOPHILS # (AUTO) 0.02 x10^3/uL (0-0.4); EOSINOPHILS % (AUTO) 0 % (1-7); LYMPHOCYTES # (AUTO) 1.27 x10^3/uL (1-3.4); LYMPHOCYTES % (AUTO) 28 % (22-44); MD NO; MEAN CORPUSCULAR HEMOGLOBIN 29.3 pg (27.0-34.8); MEAN CORPUSCULAR HGB CONC 31.9 g/dL (32.4-35.8); MEAN CORPUSCULAR VOLUME 91.7 fL (80-100); MEAN PLATELET VOLUME 7.8 fL (7.4-10.4); MONOCYTES # (AUTO) 0.38 x10^3/uL (0.2-0.8); MONOCYTES % (AUTO) 8 % (2-9); NEUTROPHILS # (AUTO) 2.91 x10^3/uL (1.8-6.8); NEUTROPHILS % (AUTO) 63 % (42-75); PH, VENOUS 7.285 pH (7.320-7.420); PLATELET COUNT 351 x10^3/uL (130-400); RED BLOOD COUNT 3.54 x10^6/uL (3.82-5.3); RED CELL DISTRIBUTION WIDTH 20.3 % (9.6-15.2)
[2018-03-09 07:07] LABS: ALBUMIN 3.2 g/dL (3.4-5.0); ANION GAP 12 mmol/L (5-15); CALCIUM 9.3 mg/dL (8.5-10.1); CHLORIDE 95 mmol/L (98-107); CREATININE 1.41 mg/dL (0.55-1.02)
[2018-03-09 07:41] LABS: ACETONE, SERUM Moderate(40mg/dL) mg/dL (Negative)
[2018-03-09] MEDS ORDERED: SODIUM CHLORIDE 0.9% 1,000 ML IV ONE ×2 (08:00→11:00)
[2018-03-09 08:32] LABS: CULTURE INDICATED? NO; MICROSCOPIC NOT IND
[2018-03-09 10:15] VITALS: BP 94/62
[2018-03-09] MEDS: INSULIN LISPRO 100 UNITS/ML, PEN SQ-INSULIN SCH ×3 (11:00→21:30)
[2018-03-09] MEDS ORDERED: ACETAMINOPHEN 325 MG TABLET PO PRN (11:00)
[2018-03-09] MEDS ORDERED: ONDANSETRON 2MG/ML, 2ML IVPush PRN (11:00)
[2018-03-09] MEDS: INSULIN GLARGINE 100 UNITS/ML, PEN SQ-INSULIN SCH ×2 (11:45→21:42)
[2018-03-09] MEDS: ENOXAPARIN 40 MG/0.4 ML SQ SCH (11:51)
[2018-03-09 12:05] LABS: CHLORIDE 95 mmol/L (98-107)
[2018-03-09 12:15] LABS: ANION GAP 10 mmol/L (5-15); CREATININE 0.99 mg/dL (0.55-1.02)
[2018-03-09 14:36] VITALS: BP 98/68
[2018-03-09 17:15] LABS: ANION GAP 13 mmol/L (5-15); CALCIUM 7.7 mg/dL (8.5-10.1); CHLORIDE 97 mmol/L (98-107); CREATININE 1.16 mg/dL (0.55-1.02)
[2018-03-09 17:22] LABS: HEMOGLOBIN A1C 12.8 % (4.2-6.3)
[2018-03-09] MEDS: SODIUM CHLORIDE 0.9% 1,000 ML IV SCH ×3 (17:39→22:39)
[2018-03-09 19:25] VITALS: BP 100/64
[2018-03-09 22:33] LABS: ANION GAP 7 mmol/L (5-15); CALCIUM 7.9 mg/dL (8.5-10.1); CHLORIDE 105 mmol/L (98-107)
[2018-03-10 01:08] VITALS: BP 99/65
[2018-03-10] MEDS: INSULIN LISPRO 100 UNITS/ML, PEN SQ-INSULIN SCH ×4 (01:30→11:49)
[2018-03-10] MEDS: SODIUM CHLORIDE 0.9% 1,000 ML IV SCH (01:46)
[2018-03-10] MEDS ORDERED: D5%-0.45% NACL 1,000 ML IV SCH (06:00)
[2018-03-10 06:24] LABS: ALBUMIN 2.5 g/dL (3.4-5.0); ANION GAP 10 mmol/L (5-15); CALCIUM 7.8 mg/dL (8.5-10.1); CHLORIDE 111 mmol/L (98-107)
[2018-03-10 06:28] LABS: ALANINE AMINOTRANSFERASE 29 U/L (12-78); ALKALINE PHOSPHATASE 102 U/L (45-117); BILIRUBIN,TOTAL 0.2 mg/dL (0.2-1.0); CREATININE 0.72 mg/dL (0.55-1.02); TOTAL PROTEIN 5.7 g/dL (6.4-8.2)
[2018-03-10 06:46] VITALS: BP 102/68
[2018-03-10] MEDS: INSULIN GLARGINE 100 UNITS/ML, PEN SQ-INSULIN SCH (09:48)
[2018-03-10] MEDS: ENOXAPARIN 40 MG/0.4 ML SQ SCH (11:49)
== END 2018-03-10 13:06 | disposition home or self-care (01) ==
LOC: ED 06:13 → EDIP 08:34 → INTOOBSV 08:34 → OBSVTOIN 08:34 → SUATTDRO 08:52 → 4EST 09:59 → DCLOUNGE 03-10 13:00
PROVIDERS: ADMIT Hospitalist; ATTEND Hospitalist
DX: E11.10 Type 2 diabetes mellitus with ketoacidosis without coma (principal); E11.00 Type 2 diabetes mellitus with hyperosmolarity without nonketotic hyperglycemic-hyperosmolar coma (NKHHC); I10 Essential (primary) hypertension; E43 Unspecified severe protein-calorie malnutrition; N17.9 Acute kidney failure, unspecified; R11.2 Nausea with vomiting, unspecified; D63.8 Anemia in other chronic diseases classified elsewhere; F12.90 Cannabis use, unspecified, uncomplicated; Z79.4 Long term (current) use of insulin; Z83.3 Family history of diabetes mellitus; Z87.891 Personal history of nicotine dependence
CPT/HCPCS: 36415; 80048; 80053; 81003; 82010; 82040; 82803; 82962; 83036; 84703; 85025; 93005; 96361; 96372; 96374; 96375; 99284; G0378; J1650; J1815; J2765; J7030; 99285

== ENCOUNTER 2018-03-13 10:50 | Inpatient (IN) | payer MEDICAID ==
[~2018-03-13] VITALS: Ht 165.1 cm; Wt 70.1 kg
[2018-03-13 11:59] LABS: HCG UR SG 1.032 (1.003-1.030); MICROSCOPIC NOT IND
[2018-03-13] MEDS ORDERED: SODIUM CHLORIDE 0.9% 1,000ML IVBOLUS ONE (12:00)
[2018-03-13 12:01] LABS: CULTURE INDICATED? NO
[2018-03-13 12:06] LABS: FIO2 ROOM AIR %
[2018-03-13 12:10] LABS: MEAN CORPUSCULAR HEMOGLOBIN 30.6 pg (27.0-34.8); MEAN CORPUSCULAR HGB CONC 32.7 g/dL (32.4-35.8); MEAN CORPUSCULAR VOLUME 93.8 fL (80-100); MEAN PLATELET VOLUME 8.3 fL (7.4-10.4); PLATELET COUNT 389 x10^3/uL (130-400); RED BLOOD COUNT 3.91 x10^6/uL (3.82-5.3); RED CELL DISTRIBUTION WIDTH 22.1 % (9.6-15.2)
[2018-03-13 12:11] LABS: ALANINE AMINOTRANSFERASE 35 U/L (12-78); ALBUMIN 3.8 g/dL (3.4-5.0); ANION GAP 20 mmol/L (5-15); CALCIUM 8.7 mg/dL (8.5-10.1); CHLORIDE 92 mmol/L (98-107); CREATININE 1.17 mg/dL (0.55-1.02)
[2018-03-13 12:15] LABS: ALKALINE PHOSPHATASE 222 U/L (45-117); BILIRUBIN,TOTAL 0.5 mg/dL (0.2-1.0); TOTAL PROTEIN 8.1 g/dL (6.4-8.2)
[2018-03-13 12:36] LABS: BASOPHILS # (AUTO) 0.05 x10^3/uL (0-0.1); BASOPHILS % (AUTO) 1 % (0-1); EOSINOPHILS # (AUTO) 0.06 x10^3/uL (0-0.4); EOSINOPHILS % (AUTO) 1 % (1-7); LYMPHOCYTES # (AUTO) 1.59 x10^3/uL (1-3.4); LYMPHOCYTES % (AUTO) 21 % (22-44); MD SCAN; MONOCYTES # (AUTO) 0.37 x10^3/uL (0.2-0.8); MONOCYTES % (AUTO) 5 % (2-9); NEUTROPHILS # (AUTO) 5.57 x10^3/uL (1.8-6.8); NEUTROPHILS % (AUTO) 73 % (42-75)
[2018-03-13 12:43] LABS: ACETONE, SERUM Large (80mg/dL) mg/dL (Negative)
[2018-03-13 13:00] VITALS: BP 116/62
[2018-03-13] MEDS ORDERED: LACTATED RINGERS 1,000 ML IVBOLUS ONE (13:30)
[2018-03-13] MEDS ORDERED: INSULIN REGULAR 100 UNITS/ML, 3ML VIAL ONE (13:45)
[2018-03-13] MEDS ORDERED: ONDANSETRON ODT 4 MG PO PRN (14:00)
[2018-03-13] MEDS ORDERED: ACETAMINOPHEN 325 MG TABLET PO PRN (14:00)
[2018-03-13] MEDS ORDERED: POLYETHYLENE GLYCOL 17 GM PACKET PO PRN (14:00)
[2018-03-13] MEDS ORDERED: REGULAR INSULIN 62.5 UNITS in SODIUM CHLORIDE 0.9% 249.375 ML IV PRN (14:00)
[2018-03-13] MEDS ORDERED: LABETALOL 5MG/ML, 20ML IVPush PRN (14:00)
[2018-03-13] MEDS: HEPARIN 5,000 UNITS/ML, 1ML SQ SCH ×2 (14:00→22:30)
[2018-03-13] MEDS ORDERED: BISACODYL 10 MG SUPP PR PRN (14:00)
[2018-03-13] MEDS ORDERED: INSULIN REGULAR 100 UNITS/ML, 3ML VIAL IVPush ONE (14:00)
[2018-03-13] MEDS: REGULAR INSULIN 62.5 UNITS in SODIUM CHLORIDE 0.9% 249.375 ML IV PRN (16:01)
[2018-03-13] MEDS: SODIUM CHLORIDE 0.9% 1,000 ML IV SCH ×2 (16:03→18:40)
[2018-03-13 18:40] LABS: ANION GAP 12 mmol/L (5-15); CALCIUM 8.8 mg/dL (8.5-10.1); CHLORIDE 100 mmol/L (98-107); CREATININE 1.19 mg/dL (0.55-1.02)
[2018-03-13] MEDS: D5%-0.45NACL+KCL 20MEQ 1,000 ML IV SCH (19:16)
[2018-03-13 22:56] LABS: ANION GAP 12 mmol/L (5-15); CALCIUM 8.8 mg/dL (8.5-10.1); CHLORIDE 98 mmol/L (98-107); CREATININE 1.03 mg/dL (0.55-1.02)
[2018-03-14 02:35] LABS: ANION GAP 12 mmol/L (5-15); CALCIUM 8.6 mg/dL (8.5-10.1); CHLORIDE 101 mmol/L (98-107); CREATININE 1.09 mg/dL (0.55-1.02)
[2018-03-14] MEDS: REGULAR INSULIN 62.5 UNITS in SODIUM CHLORIDE 0.9% 249.375 ML IV PRN (04:08)
[2018-03-14] MEDS: D5%-0.45NACL+KCL 20MEQ 1,000 ML IV SCH (04:08)
[2018-03-14] MEDS: HEPARIN 5,000 UNITS/ML, 1ML SQ SCH (05:30)
[2018-03-14 06:06] LABS: BASOPHILS # (AUTO) 0.03 x10^3/uL (0-0.1); BASOPHILS % (AUTO) 1 % (0-1); EOSINOPHILS # (AUTO) 0.11 x10^3/uL (0-0.4); EOSINOPHILS % (AUTO) 2 % (1-7); LYMPHOCYTES # (AUTO) 2.32 x10^3/uL (1-3.4); LYMPHOCYTES % (AUTO) 48 % (22-44); MD NO; MEAN CORPUSCULAR HEMOGLOBIN 30.8 pg (27.0-34.8); MEAN CORPUSCULAR HGB CONC 33.1 g/dL (32.4-35.8); MEAN CORPUSCULAR VOLUME 92.9 fL (80-100); MEAN PLATELET VOLUME 7.3 fL (7.4-10.4); MONOCYTES # (AUTO) 0.36 x10^3/uL (0.2-0.8); MONOCYTES % (AUTO) 8 % (2-9); NEUTROPHILS # (AUTO) 2.01 x10^3/uL (1.8-6.8); NEUTROPHILS % (AUTO) 42 % (42-75); PLATELET COUNT 382 x10^3/uL (130-400); RED BLOOD COUNT 3.39 x10^6/uL (3.82-5.3); RED CELL DISTRIBUTION WIDTH 22.9 % (9.6-15.2)
[2018-03-14 06:08] LABS: ANION GAP 10 mmol/L (5-15); CALCIUM 7.9 mg/dL (8.5-10.1); CHLORIDE 105 mmol/L (98-107); CREATININE 0.84 mg/dL (0.55-1.02)
[2018-03-14] MEDS ORDERED: SENNA/DOCUSATE TABLET PO SCH (09:00)
== END 2018-03-14 10:45 | disposition home or self-care (01) | DRG 638 ==
LOC: ED 13:44 → EDIP 13:45 → ICU 14:08 → DCLOUNGE 03-14 10:35 → 4WST 03-14 10:50 → DCLOUNGE 03-14 10:50
PROVIDERS: ADMIT Internal Medicine; ATTEND Internal Medicine
PROC: 02HV33Z Insertion of Infusion Device into Superior Vena Cava, Percutaneous Approach (ICD-10-PCS; principal; 2018-03-13)
PROC: B548ZZA Ultrasonography of Superior Vena Cava, Guidance (ICD-10-PCS; 2018-03-13)
DX: E11.10 Type 2 diabetes mellitus with ketoacidosis without coma (principal); E87.1 Hypo-osmolality and hyponatremia; E86.0 Dehydration; E87.5 Hyperkalemia; E11.65 Type 2 diabetes mellitus with hyperglycemia; E55.9 Vitamin D deficiency, unspecified; E78.5 Hyperlipidemia, unspecified; Z91.040 Latex allergy status; Z91.018 Allergy to other foods; Z91.14 Patient's other noncompliance with medication regimen; Z79.4 Long term (current) use of insulin
CPT/HCPCS: 36569; 36600; 71045; 76937; 77001; 80048; 80053; 81003; 81025; 82010; 82803; 82962; 83690; 83735; 84100; 85025; 87040; 87081; G0378; J1644; J1815; Q0162; C1751; J3480; J7030; J7050; J7120

== ENCOUNTER 2018-03-22 12:42 | Inpatient (IN) | payer MEDICAID ==
[~2018-03-22] VITALS: Ht 165.1 cm; Wt 73.8 kg
--- NOTE | 2018-03-22 13:04 | NUR ---
PT TACHYPNIC & MOANING, A&OX3, MOUTH DRY (MOUTH BREATHING). PT REPORTS "HIGH BLOOD SUGAR". STATES SHE'S BEEN TAKING DM MEDS. TAVARES, KAYLIE NOW BS FOR EXAM. PT MUMBLING REPLIES.
--- NOTE | 2018-03-22 13:08 | NUR ---
PT STATES LAST ORAL INTAKE: YESTERDAY. STATES TODAY'S BLOOD SUGAR READING WAS "HIGH".
--- NOTE | 2018-03-22 13:23 | NUR ---
FBS: "HIGH" PROVIDER WILL BE NOTIFIED. LAB AT BS.
[2018-03-22] MEDS ORDERED: ONDANSETRON ODT 4 MG PO ONE (13:30)
[2018-03-22] MEDS ORDERED: SODIUM CHLORIDE 0.9% 1,000ML IVBOLUS ONE ×2 (13:30→14:30)
[2018-03-22] MEDS ORDERED: SODIUM CHLORIDE FLUSH 10ML SYR IVF ONE (13:30)
[2018-03-22] MEDS ORDERED: ONDANSETRON ODT 4 MG ONE (13:36)
--- NOTE | 2018-03-22 13:45 | NUR ---
PT A HARD STICK: IV ASSIST TO BE REQUESTED
[2018-03-22 13:51] LABS: MEAN PLATELET VOLUME 8.8 fL (7.4-10.4); PLATELET COUNT 629 x10^3/uL (130-400); RED BLOOD COUNT 4.31 x10^6/uL (3.82-5.3); RED CELL DISTRIBUTION WIDTH 21.4 % (9.6-15.2)
[2018-03-22 13:54] LABS: ALBUMIN 4.3 g/dL (3.4-5.0); ANION GAP 34 mmol/L (5-15); CALCIUM 10.1 mg/dL (8.5-10.1); CHLORIDE 88 mmol/L (98-107); O2 FLOW ROOM AIR L/min
--- NOTE | 2018-03-22 13:54 | NUR ---
PT TACHYPNIC O2 SAT 96% RA. O2 2LNC APPLIED. ROSA ALMEIDA BS FOR U/S IV PLACEMENT.
[2018-03-22 13:57] LABS: PH, VENOUS 6.883 pH (7.320-7.420)
--- NOTE | 2018-03-22 13:58 | NUR ---
LAB CALLED ED W/ CRITICAL VALUES: PH 6.883, BICARB 3.9, CO2 4.5, GLUCOSE 1285. HUAN CHAPIN WAS NOTIFIED.
[2018-03-22 14:00] LABS: BILIRUBIN,TOTAL 0.6 mg/dL (0.2-1.0); CREATININE 1.99 mg/dL (0.55-1.02)
[2018-03-22 14:01] LABS: ALANINE AMINOTRANSFERASE 51 U/L (12-78); ALKALINE PHOSPHATASE 305 U/L (45-117); TOTAL PROTEIN 9.1 g/dL (6.4-8.2)
[2018-03-22] MEDS: D5%-0.45NACL+KCL 20MEQ 1,000 ML IV SCH (14:01)
--- NOTE | 2018-03-22 14:03 | NUR ---
LAB CALLED W/ POTASSIUM: 7.2 NON-HEMALYZED. DR CANSECO AT AND NOTIFIED OF VALUE.
[2018-03-22] MEDS ORDERED: SODIUM CHLORIDE 0.9% 1,000 ML IV ONE (14:05)
[2018-03-22 14:09] LABS: ACETONE, SERUM Large (80mg/dL) mg/dL (Negative)
[2018-03-22 14:12] LABS: BASOPHILS # (AUTO) 0.01 x10^3/uL (0-0.1); BASOPHILS % (AUTO) 0 % (0-1); EOSINOPHILS # (AUTO) 0.03 x10^3/uL (0-0.4); EOSINOPHILS % (AUTO) 0 % (1-7); LYMPHOCYTES # (AUTO) 2.24 x10^3/uL (1-3.4); LYMPHOCYTES % (AUTO) 19 % (22-44); MONOCYTES # (AUTO) 0.37 x10^3/uL (0.2-0.8); MONOCYTES % (AUTO) 3 % (2-9); NEUTROPHILS # (AUTO) 9.01 x10^3/uL (1.8-6.8); NEUTROPHILS % (AUTO) 77 % (42-75)
[2018-03-22 14:14] LABS: MD SCAN
[2018-03-22] MEDS ORDERED: INSULIN REGULAR 100 UNITS/ML, 3ML VIAL ONE (14:18)
[2018-03-22] MEDS ORDERED: DOCUSATE 100 MG CAPSULE PO PRN (14:30)
[2018-03-22] MEDS ORDERED: INSULIN REGULAR 100 UNITS/ML, 3ML VIAL SQ-INSULIN ONE (14:30)
[2018-03-22] MEDS ORDERED: LABETALOL 5MG/ML, 20ML IVPush PRN (14:30)
[2018-03-22] MEDS ORDERED: REGULAR INSULIN 62.5 UNITS in SODIUM CHLORIDE 0.9% 249.375 ML IV PRN (14:30)
[2018-03-22] MEDS ORDERED: ONDANSETRON ODT 4 MG PO PRN (14:30)
[2018-03-22] MEDS ORDERED: SODIUM CHLORIDE 0.45% 1,000 ML IV SCH (14:30)
[2018-03-22] MEDS ORDERED: ONDANSETRON 2MG/ML, 2ML IVPush PRN (14:30)
[2018-03-22] MEDS ORDERED: ENALAPRILAT 1.25 MG/ML, 2ML IVPush PRN (14:30)
[2018-03-22] MEDS ORDERED: POLYETHYLENE GLYCOL 17 GM PACKET PO PRN (14:30)
[2018-03-22] MEDS ORDERED: ACETAMINOPHEN 325 MG TABLET PO PRN (14:30)
--- NOTE | 2018-03-22 14:30 | NUR ---
Pt moved to trauma 3 for higher level of care. multiple attempts made to start IV access including ultrasound guided. Dr. Penaloza at . verbal orders received and carried out.
[2018-03-22] MEDS ORDERED: SODIUM BICARB 8.4%, 50ML SYRINGE ONE (14:49)
[2018-03-22] MEDS ORDERED: LIDOCAINE/PF 2%, 2ML INFIL ONE (15:00)
[2018-03-22] MEDS ORDERED: SODIUM BICARB 8.4%, 50ML SYRINGE IVPush SCH (15:00)
--- NOTE | 2018-03-22 15:00 | NUR ---
left tibial tuberosity IO device inserted. Patency checked. 1st L fluid bolus started via pressure bag. Insulin gtt started at 3 units/hr per Dr. Penaloza. 2 amps of sodium bicarb given per Dr. Penaloza.
--- NOTE | 2018-03-22 15:16 | NUR ---
bedside report given to Tanika ALMEIDA.
[2018-03-22] MEDS ORDERED: SODIUM CHLORIDE 0.45%, 1,000ML IVBOLUS SCH (15:30)
[2018-03-22 16:33] LABS: MICROSCOPIC NOT IND
[2018-03-22] MEDS: PIPERACILLIN/TAZO/PMX 3.375GM 50 ML IV SCH ×2 (17:19→23:32)
[2018-03-22] MEDS: ENOXAPARIN 40 MG/0.4 ML SQ SCH (17:19)
[2018-03-22] MEDS ORDERED: SODIUM BICARB 8.4%, 50ML SYRINGE IVPush ONE (17:30)
[2018-03-22 18:39] LABS: ANION GAP 31 mmol/L (5-15); CALCIUM 8.2 mg/dL (8.5-10.1); CHLORIDE 100 mmol/L (98-107); CREATININE 1.85 mg/dL (0.55-1.02)
[2018-03-22] MEDS ORDERED: SODIUM CHLORIDE 0.45%, 1,000ML IVBOLUS ONE (19:00)
[2018-03-22 23:01] LABS: ANION GAP 20 mmol/L (5-15); CALCIUM 8.1 mg/dL (8.5-10.1); CHLORIDE 106 mmol/L (98-107); CREATININE 1.63 mg/dL (0.55-1.02)
[2018-03-22] MEDS: NOREPINEPHRINE 4 MG in SODIUM CHLORIDE 0.9% 246 ML IV PRN (23:33)
[2018-03-23] MEDS: D5%-0.45NACL+KCL 20MEQ 1,000 ML IV SCH (00:32)
[2018-03-23 03:04] LABS: ANION GAP 16 mmol/L (5-15); CALCIUM 7.6 mg/dL (8.5-10.1); CHLORIDE 104 mmol/L (98-107)
[2018-03-23 03:07] LABS: ALANINE AMINOTRANSFERASE 35 U/L (12-78); ALKALINE PHOSPHATASE 149 U/L (45-117); BILIRUBIN,TOTAL 0.6 mg/dL (0.2-1.0); TOTAL PROTEIN 6.4 g/dL (6.4-8.2)
[2018-03-23 03:21] LABS: MEAN CORPUSCULAR HEMOGLOBIN 31.4 pg (27.0-34.8); MEAN CORPUSCULAR HGB CONC 33.4 g/dL (32.4-35.8); MEAN CORPUSCULAR VOLUME 93.9 fL (80-100); MEAN PLATELET VOLUME 7.1 fL (7.4-10.4); PLATELET COUNT 496 x10^3/uL (130-400); RED BLOOD COUNT 3.05 x10^6/uL (3.82-5.3); RED CELL DISTRIBUTION WIDTH 22.1 % (9.6-15.2)
[2018-03-23 03:33] LABS: BASOPHILS # (AUTO) 0.03 x10^3/uL (0-0.1); BASOPHILS % (AUTO) 0 % (0-1); EOSINOPHILS # (AUTO) 0.02 x10^3/uL (0-0.4); EOSINOPHILS % (AUTO) 0 % (1-7); LYMPHOCYTES # (AUTO) 3.33 x10^3/uL (1-3.4); LYMPHOCYTES % (AUTO) 27 % (22-44); MD SCAN; MONOCYTES # (AUTO) 1.61 x10^3/uL (0.2-0.8); MONOCYTES % (AUTO) 13 % (2-9); NEUTROPHILS # (AUTO) 7.52 x10^3/uL (1.8-6.8); NEUTROPHILS % (AUTO) 60 % (42-75)
[2018-03-23 04:00] VITALS: BP 122/53
[2018-03-23] MEDS: PIPERACILLIN/TAZO/PMX 3.375GM 50 ML IV SCH ×4 (04:35→23:38)
[2018-03-23] MEDS: NOREPINEPHRINE 4 MG in SODIUM CHLORIDE 0.9% 246 ML IV PRN (06:20)
[2018-03-23 07:23] LABS: ANION GAP 12 mmol/L (5-15); CALCIUM 8.1 mg/dL (8.5-10.1); CHLORIDE 105 mmol/L (98-107); CREATININE 1.52 mg/dL (0.55-1.02)
[2018-03-23] MEDS ORDERED: SODIUM CHLORIDE 0.9% 1,000 ML IV SCH (08:00)
[2018-03-23] MEDS: LINEZOLID PMX 600MG/300ML 300 ML IV SCH ×2 (08:02→21:29)
[2018-03-23] MEDS: INSULIN LISPRO 100 UNITS/ML, PEN SQ-INSULIN SCH ×4 (08:03→21:01)
[2018-03-23] MEDS: SENNA/DOCUSATE TABLET PO SCH (08:03)
[2018-03-23] MEDS ORDERED: INSULIN GLARGINE 100 UNITS/ML, PEN SQ-INSULIN SCH ×2 (09:00→21:00)
[2018-03-23 10:46] LABS: ANION GAP 15 mmol/L (5-15); CALCIUM 7.2 mg/dL (8.5-10.1); CHLORIDE 99 mmol/L (98-107); CREATININE 1.27 mg/dL (0.55-1.02)
[2018-03-23] MEDS: ENOXAPARIN 40 MG/0.4 ML SQ SCH (16:00)
[2018-03-23 19:41] VITALS: BP 94/66
[2018-03-23] MEDS: IBUPROFEN 200 MG TABLET PO PRN (21:00)
[2018-03-24 02:20] VITALS: BP 98/66
[2018-03-24 04:39] LABS: MEAN CORPUSCULAR HEMOGLOBIN 31.5 pg (27.0-34.8); MEAN CORPUSCULAR HGB CONC 33.2 g/dL (32.4-35.8); MEAN CORPUSCULAR VOLUME 94.8 fL (80-100); MEAN PLATELET VOLUME 7.1 fL (7.4-10.4); PLATELET COUNT 308 x10^3/uL (130-400); RED BLOOD COUNT 2.82 x10^6/uL (3.82-5.3); RED CELL DISTRIBUTION WIDTH 22.2 % (9.6-15.2)
[2018-03-24 04:44] LABS: ANION GAP 8 mmol/L (5-15); CALCIUM 7.6 mg/dL (8.5-10.1); CHLORIDE 104 mmol/L (98-107); CREATININE 1.22 mg/dL (0.55-1.02)
[2018-03-24 05:45] LABS: MD YES
[2018-03-24 05:47] LABS: LYMPH#(MANUAL) 2.59 x10^3/uL (1-3.4); LYMPHS% (MANUAL) 54 % (22-44); MONOS#(MANUAL) 0.19 x10^3/uL (0.3-2.7); MONOS% (MANUAL) 4 % (2-9); SEG#(MANUAL) 2.02 x10^3/uL (1.8-6.8); SEGS% (MANUAL) 42 % (42-75)
[2018-03-24 05:48] LABS: ANISOCYTOSIS 1+; POLYCHROMASIA 1+
[2018-03-24 05:49] LABS: <PLATELET ESTIMATE> ADEQUATE; <PLT MORPHOLOGY> NORMAL PLT MORPH
[2018-03-24] MEDS: PIPERACILLIN/TAZO/PMX 3.375GM 50 ML IV SCH ×4 (05:59→18:29)
[2018-03-24 07:30] VITALS: BP 95/62
[2018-03-24] MEDS: INSULIN LISPRO 100 UNITS/ML, PEN SQ-INSULIN SCH ×4 (07:46→20:29)
[2018-03-24] MEDS: LINEZOLID PMX 600MG/300ML 300 ML IV SCH (07:46)
[2018-03-24] MEDS: SENNA/DOCUSATE TABLET PO SCH (07:47)
[2018-03-24] MEDS: INSULIN GLARGINE 100 UNITS/ML, PEN SQ-INSULIN SCH ×2 (11:13→20:29)
[2018-03-24 13:53] VITALS: BP 113/77
[2018-03-24] MEDS: ENOXAPARIN 40 MG/0.4 ML SQ SCH (16:00)
[2018-03-24 19:14] VITALS: BP 92/61
[2018-03-24] MEDS: IBUPROFEN 200 MG TABLET PO PRN (23:20)
[2018-03-25 01:32] VITALS: BP 113/75
[2018-03-25] MEDS: PIPERACILLIN/TAZO/PMX 3.375GM 50 ML IV SCH ×2 (05:30→11:30)
[2018-03-25] MEDS: INSULIN LISPRO 100 UNITS/ML, PEN SQ-INSULIN SCH ×2 (07:00→11:00)
[2018-03-25 08:10] VITALS: BP 115/79
[2018-03-25 08:54] LABS: BILIRUBIN,TOTAL 0.2 mg/dL (0.2-1.0)
[2018-03-25] MEDS ORDERED: INSULIN GLARGINE 100 UNITS/ML, PEN SQ-INSULIN SCH (09:00)
[2018-03-25] MEDS: SENNA/DOCUSATE TABLET PO SCH (09:00)
[2018-03-25 09:39] LABS: ALBUMIN 3.5 g/dL (3.4-5.0); ANION GAP 10 mmol/L (5-15); CALCIUM 8.7 mg/dL (8.5-10.1); CHLORIDE 107 mmol/L (98-107)
[2018-03-25 10:04] LABS: ALANINE AMINOTRANSFERASE 37 U/L (12-78); ALKALINE PHOSPHATASE 177 U/L (45-117); CREATININE 0.88 mg/dL (0.55-1.02); TOTAL IRON BINDING CAPACITY 426 mcg/dL (250-450)
[2018-03-25 10:29] LABS: % IRON SATURATION 8 % (20-55); IRON LEVEL 34 mcg/dL (50-170)
[2018-03-25 10:31] LABS: FOLATE LEVEL 14.7 ng/mL (3.1-17.5)
[2018-03-25 12:34] VITALS: BP 132/89
[2018-03-25] MEDS ORDERED: DOXY100T PO (14:02)
[2018-03-25] MEDS ORDERED: AMOX1TAB12 PO (14:02)
[2018-03-25] MEDS ORDERED: DOXYCYCLINE 100MG TABLET PO SCH (21:00)
[2018-03-25] MEDS ORDERED: AMOXICILLIN/CLAV 875-125MG TABLET PO SCH (21:00)
== END 2018-03-25 15:16 | disposition left against medical advice (07) | DRG 871 ==
LOC: ED 14:00 → EDIP 14:01 → CCU 14:02 → ED 14:37 → CCU 15:09 → ED 17:33 → 3NE 03-23 14:07
PROVIDERS: ADMIT Internal Medicine; ATTEND Internal Medicine
DX: A41.9 Sepsis, unspecified organism (principal); E10.10 Type 1 diabetes mellitus with ketoacidosis without coma; J18.9 Pneumonia, unspecified organism; J96.00 Acute respiratory failure, unspecified whether with hypoxia or hypercapnia; N17.0 Acute kidney failure with tubular necrosis; E55.9 Vitamin D deficiency, unspecified; E78.5 Hyperlipidemia, unspecified; E87.5 Hyperkalemia; R62.50 Unspecified lack of expected normal physiological development in childhood; Z79.4 Long term (current) use of insulin; Z91.19 Patient's noncompliance with other medical treatment and regimen; Z88.8 Allergy status to other drugs, medicaments and biological substances; Z91.040 Latex allergy status; Z53.21 Procedure and treatment not carried out due to patient leaving prior to being seen by health care provider
CPT/HCPCS: 36415; 36569; 36600; 71045; 76937; 77001; 80048; 80053; 81003; 82010; 82533; 82607; 82728; 82746; 82803; 82947; 82962; 83540; 83550; 83615; 83690; 83735; 84100; 84132; 84443; 84703; 85025; 87081; 93005; 96372; 96374; 99291; G0378; J1650; J1815; J2020; J2543; Q0162; C1751; C1769; J3480; J7030; J7050

== ENCOUNTER 2018-07-26 09:55 | Inpatient (IN) | payer MEDICAID ==
[~2018-07-26] VITALS: Ht 165.1 cm; Wt 82.9 kg
[~2018-07-26 09:55] MED LIST changes: +AMOX1TAB12 PO; +DOXY100T PO
[2018-07-26] MEDS ORDERED: SODIUM CHLORIDE 0.9% 1,000 ML IV ONE ×3 (10:04→11:59)
[2018-07-26] MEDS ORDERED: SODIUM CHLORIDE FLUSH 10ML SYR IVF ONE (10:30)
[2018-07-26] MEDS ORDERED: SODIUM CHLORIDE 0.9% 1,000ML IVBOLUS ONE ×2 (10:30→11:30)
[2018-07-26 11:16] LABS: MEAN CORPUSCULAR HEMOGLOBIN 30.3 pg (27.0-34.8); MEAN CORPUSCULAR HGB CONC 31.6 g/dL (32.4-35.8); MEAN CORPUSCULAR VOLUME 95.9 fL (80-100); MEAN PLATELET VOLUME 9.3 fL (7.4-10.4); PLATELET COUNT 446 x10^3/uL (130-400); RED BLOOD COUNT 5.04 x10^6/uL (3.82-5.3); RED CELL DISTRIBUTION WIDTH 18.4 % (9.6-15.2)
[2018-07-26 11:18] LABS: CHLORIDE 102 mmol/L (98-107)
[2018-07-26 11:23] LABS: ALANINE AMINOTRANSFERASE 30 U/L (12-78); ALBUMIN 4.4 g/dL (3.4-5.0); ANION GAP 27 mmol/L (5-15); CALCIUM 9.1 mg/dL (8.5-10.1); CREATININE 2.19 mg/dL (0.55-1.02)
[2018-07-26] MEDS ORDERED: SODIUM CHLORIDE 0.9% IV PRN (11:27)
[2018-07-26] MEDS ORDERED: REGULAR INSULIN IV PRN (11:27)
[2018-07-26] MEDS ORDERED: VANCOMYCIN PER PHARMACY MC ONE (11:30)
[2018-07-26] MEDS ORDERED: PIPERACILLIN/TAZO/PMX 4.5GM 100 ML IVPB ONE (11:30)
[2018-07-26 11:32] LABS: MICROSCOPIC AUTO
[2018-07-26 11:34] LABS: CULTURE INDICATED? YES
[2018-07-26 11:37] LABS: ALKALINE PHOSPHATASE 156 U/L (45-117); BASOPHILS % (AUTO) 0 % (0-1); BILIRUBIN,TOTAL 0.4 mg/dL (0.2-1.0); EOSINOPHILS # (AUTO) 0.02 x10^3/uL (0-0.4); EOSINOPHILS % (AUTO) 0 % (1-7); LYMPHOCYTES % (AUTO) 7 % (22-44); MD SCAN; MONOCYTES # (AUTO) 0.38 x10^3/uL (0.2-0.8); MONOCYTES % (AUTO) 2 % (2-9); NEUTROPHILS # (AUTO) 19.03 x10^3/uL (1.8-6.8); NEUTROPHILS % (AUTO) 91 % (42-75); TOTAL PROTEIN 9.2 g/dL (6.4-8.2)
--- NOTE | 2018-07-26 11:49 | NUR ---
LATE NOTE CAMILAY FOR 1011: Pt brought in by EMS with c/o hyperglycemia. Pt is a known type I diabetic and has a past medical history of non-compliance with medications, DKA, and ICU admission for DKA. Pt has scarring to neck and bilateral upper extremities for past PIV and central line placement. crime lab technician and ED RN unable to get PIV access. ED MD placed central. Pt is AOX3, pt not oriented to time. Pt has boyfriend at bedside. Pt states she took 11 units of Humalog at 0800 today and 20 units of Lantus at 0800. Pt's boyfriend states, "she started not feeling well a couple of days ago, but it got really bad last night." Pt denies vomiting, diarrhea, cp, sob, trauma, or syncope. Pt has rapid labored breathing and is tachycardic, please see charted vital signs. Pt connected to bus monitor, NIBP, and continous pulse ox. Both bed rails up for safety measures. Call light within reach. Provided warm blankets and pillow for comfort measures.
[2018-07-26] MEDS ORDERED: SODIUM CHLORIDE 0.9% 1,000 ML IV SCH (11:50)
--- NOTE | 2018-07-26 11:51 | NUR ---
REPORT RECEIVED FROM ELLE HORNER. ASSUMED CARE OF PT.
--- NOTE | 2018-07-26 11:54 | NUR ---
Pt transported from ED ROOM 14 to ED trauma 3. Bedside report provided to ELLE Melara. All questions answered. ELLE Melara to assume care of pt.
[2018-07-26] MEDS ORDERED: ONDANSETRON 2MG/ML, 2ML IVPush ONE (12:00)
[2018-07-26] MEDS ORDERED: ACETAMINOPHEN 325 MG TABLET PO PRN (12:00)
[2018-07-26] MEDS ORDERED: BISACODYL 10 MG SUPP PR PRN (12:00)
[2018-07-26] MEDS ORDERED: REGULAR INSULIN 62.5 UNITS in SODIUM CHLORIDE 0.9% 249.375 ML IV PRN (12:00)
[2018-07-26] MEDS ORDERED: ONDANSETRON ODT 4 MG PO PRN (12:00)
[2018-07-26] MEDS ORDERED: SODIUM BICARB 8.4%, 50ML SYRINGE IVPush ONE (12:00)
[2018-07-26] MEDS ORDERED: POLYETHYLENE GLYCOL 17 GM PACKET PO PRN (12:00)
[2018-07-26] MEDS ORDERED: CALCIUM CHLORIDE 10%, 10ML SYR IVPush ONE (12:00)
[2018-07-26] MEDS ORDERED: VANCOMYCIN 1,600 MG in SODIUM CHLORIDE 0.9% 250 ML IV ONE (12:00)
[2018-07-26] MEDS ORDERED: ONDANSETRON 2MG/ML, 2ML IVPush PRN (12:00)
[2018-07-26] MEDS ORDERED: SODIUM CHLORIDE FLUSH 10ML SYR IVF PRN (12:00)
[2018-07-26] MEDS ORDERED: LABETALOL 5MG/ML, 20ML IVPush PRN ×2 (12:00)
[2018-07-26 12:03] LABS: ACETONE, SERUM Large (80mg/dL) mg/dL (Negative)
[2018-07-26] MEDS ORDERED: SODIUM BICARB 8.4%, 50ML SYRINGE ONE (12:10)
[2018-07-26] MEDS ORDERED: ONDANSETRON 2MG/ML, 2ML ONE ×2 (12:10→13:16)
[2018-07-26] MEDS ORDERED: CALCIUM CHLORIDE 10%, 10ML SYR ONE (12:10)
[2018-07-26] MEDS: REGULAR INSULIN 62.5 UNITS in SODIUM CHLORIDE 0.9% 249.375 ML IV PRN (12:14)
--- NOTE | 2018-07-26 12:25 | NUR ---
PT CURRENTLY RESTING ON GURNEY, DOZING INTERMITTENTLY. PT AWAKENS EASILY TO NAME BEING CALLED. PT C/O NAUSEA. MEDICATED ORDERED FOR NAUSEA. PT AWARE THAT WE ARE WAITING FOR LAB RESULTS/ADMISSION. SKIN COOL TO TOUCH, BUT DRY AND PINK. RESP SLIGHTLY RAPID AT 22 BUT UNLABORED. PT NST ON MONITOR IN THE 130S. PT AO X 4. PT ON CONT BP, CARDIAC AND O2 MONITORS. CALL LIGHT WITHIN REACH.
--- NOTE | 2018-07-26 12:37 | NUR ---
DELAY IN STARTING ABX D/T DIFFICULTY IN OBTAINING BLOOD CULTURES.
[2018-07-26] MEDS ORDERED: HEPARIN 5,000 UNITS/ML, 1ML ONE (12:44)
[2018-07-26 13:00] LABS: THYROID STIMULATING HORMONE 1.76 mIU/L (0.358-3.740)
[2018-07-26] MEDS: HEPARIN 5,000 UNITS/ML, 1ML SQ SCH ×2 (13:02→20:15)
--- NOTE | 2018-07-26 13:10 | NUR ---
PT CURRENTLY RESTING ON GURNEY. PT REPORTS CONT NAUSEA, WILL MEDICATE PT ORDERED FOR NAUSEA. PT NST 130'S ON CARDIAC MONITORS. SKIN COOL TO TOUCH, DRY AND PINK. RESP SLIGHTLY RAPID AT 24 BUT UNLABORED. PT ON CONT BP, CARDIAC AND O2 MONITORS. SIGINIFICAN OTHER AT BEDSIDE. CALL LIGHT WITHIN REACH. ABX ZOSYN AND VANCO WERE ORDERED BY NARGIS WITT AND CHARTED "MISSED" SO RN UNABLE TO ADMINISTER. DISCUSSED WITH NARGIS WITT AND PER HER SHE AND DR. NUÑEZ WANTED PT TO RECEIVE THESE ABX. ABX REORDERED PER DR. WITT AND STARTED AFTER BLOOD CULTURES X 2 WERE SUCCESSFULLY DRAWN AT THIS TIME.
--- NOTE | 2018-07-26 13:25 | NUR ---
GLUCOMETER READ "HI". RANDOM GLUCOSE LAB LEVEL ORDERED PER PROTOCOL. AWAITING RESULTS.
[2018-07-26] MEDS ORDERED: VANCOMYCIN PER PHARMACY MC PRN (13:30)
[2018-07-26] MEDS ORDERED: PIPERACILLIN/TAZO/PMX 4.5GM 100 ML IV ONE (13:30)
--- NOTE | 2018-07-26 13:34 | NUR ---
PT CURRENTLY RESTING ON GURNEY, DOZING. PT AWAKENS EASILY TO NAME BEING CALLED. PT AO X 4. SKIN COOL, PINK AND DRY. RESP SLIGHTLY RAPID AT 24 BUT UNLABORED. NST 130'S NOTED ON BURLESQUE DANCER. BS 672 PER LAB, INSULIN DRIP TO BE HELD FOR 1 HR PER ORDER. GLUCOSE LAB ORDERED FOR 1 HR FROM NOW. CALL LIGHT WITHIN REACH. WILL CONT TO MONITOR PT.
[2018-07-26 13:45] LABS: HEMOGLOBIN A1C 8.7 % (4.2-6.3)
--- NOTE | 2018-07-26 14:01 | NUR ---
REPORT TO ELLE ALDANA ON CICU.
[2018-07-26 16:19] LABS: CALCIUM 8.7 mg/dL (8.5-10.1); CREATININE 1.81 mg/dL (0.55-1.02)
[2018-07-26 16:29] LABS: ANION GAP 20 mmol/L (5-15); CHLORIDE 118 mmol/L (98-107)
[2018-07-26] MEDS: D5%-0.45NACL+KCL 20MEQ 1,000 ML IV SCH ×2 (20:00→21:58)
[2018-07-26 20:07] LABS: ANION GAP 13 mmol/L (5-15); CALCIUM 8.6 mg/dL (8.5-10.1); CHLORIDE 120 mmol/L (98-107); CREATININE 1.76 mg/dL (0.55-1.02)
[2018-07-27 00:20] LABS: ANION GAP 10 mmol/L (5-15); CALCIUM 8.5 mg/dL (8.5-10.1); CHLORIDE 121 mmol/L (98-107); CREATININE 1.58 mg/dL (0.55-1.02)
[2018-07-27] MEDS: HEPARIN 5,000 UNITS/ML, 1ML SQ SCH ×3 (04:04→20:00)
[2018-07-27 04:13] VITALS: BP 133/80
[2018-07-27 04:32] LABS: ALANINE AMINOTRANSFERASE 17 U/L (12-78); ALBUMIN 3.2 g/dL (3.4-5.0); ANION GAP 10 mmol/L (5-15); CALCIUM 8.3 mg/dL (8.5-10.1); CHLORIDE 116 mmol/L (98-107); CREATININE 1.46 mg/dL (0.55-1.02)
[2018-07-27 04:34] LABS: ALKALINE PHOSPHATASE 91 U/L (45-117); BILIRUBIN,TOTAL 0.2 mg/dL (0.2-1.0); TOTAL PROTEIN 6.7 g/dL (6.4-8.2)
[2018-07-27 04:38] LABS: BASOPHILS # (AUTO) 0.04 x10^3/uL (0-0.1); BASOPHILS % (AUTO) 0 % (0-1); EOSINOPHILS % (AUTO) 0 % (1-7); LYMPHOCYTES # (AUTO) 1.47 x10^3/uL (1-3.4); LYMPHOCYTES % (AUTO) 13 % (22-44); MD NO; MEAN CORPUSCULAR HEMOGLOBIN 30.8 pg (27.0-34.8); MEAN CORPUSCULAR VOLUME 93.5 fL (80-100); MEAN PLATELET VOLUME 7.9 fL (7.4-10.4); MONOCYTES % (AUTO) 12 % (2-9); NEUTROPHILS # (AUTO) 8.26 x10^3/uL (1.8-6.8); NEUTROPHILS % (AUTO) 75 % (42-75); PLATELET COUNT 312 x10^3/uL (130-400); RED CELL DISTRIBUTION WIDTH 18.9 % (9.6-15.2)
[2018-07-27] MEDS: REGULAR INSULIN 62.5 UNITS in SODIUM CHLORIDE 0.9% 249.375 ML IV PRN (05:01)
[2018-07-27] MEDS: D5%-0.45NACL+KCL 20MEQ 1,000 ML IV SCH (05:01)
[2018-07-27] MEDS: INSULIN LISPRO 100 UNITS/ML, PEN SQ-INSULIN SCH ×4 (06:52→19:53)
[2018-07-27] MEDS: SENNA/DOCUSATE TABLET PO SCH (07:54)
[2018-07-27] MEDS: INSULIN GLARGINE 100 UNITS/ML, PEN SQ-INSULIN SCH ×2 (07:54→19:53)
[2018-07-27 10:14] VITALS: BP 114/75
[2018-07-27 13:05] VITALS: BP 118/78
[2018-07-27 18:47] VITALS: BP 114/70
[2018-07-28 02:00] VITALS: BP 110/78
[2018-07-28] MEDS: HEPARIN 5,000 UNITS/ML, 1ML SQ SCH ×2 (04:00→11:20)
[2018-07-28 04:50] LABS: ANION GAP 8 mmol/L (5-15); CALCIUM 8.7 mg/dL (8.5-10.1); CHLORIDE 111 mmol/L (98-107); CREATININE 1.01 mg/dL (0.55-1.02)
[2018-07-28] MEDS: INSULIN LISPRO 100 UNITS/ML, PEN SQ-INSULIN SCH ×2 (07:00→11:20)
[2018-07-28] MEDS: SENNA/DOCUSATE TABLET PO SCH (09:00)
[2018-07-28] MEDS: INSULIN GLARGINE 100 UNITS/ML, PEN SQ-INSULIN SCH (09:10)
[2018-07-28 13:53] VITALS: BP 128/78
== END 2018-07-28 15:47 | disposition home or self-care (01) | DRG 871 ==
LOC: ED 10:40 → EDIP 11:50 → CCU 14:07 → 3NW 07-27 09:19 → DCLOUNGE 07-28 15:40
PROVIDERS: ADMIT Internal Medicine; ATTEND Internal Medicine
PROC: 02HV33Z Insertion of Infusion Device into Superior Vena Cava, Percutaneous Approach (ICD-10-PCS; principal; 2018-07-26)
PROC: B548ZZA Ultrasonography of Superior Vena Cava, Guidance (ICD-10-PCS; 2018-07-26)
DX: A41.9 Sepsis, unspecified organism (principal); E10.10 Type 1 diabetes mellitus with ketoacidosis without coma; N17.0 Acute kidney failure with tubular necrosis; R65.21 Severe sepsis with septic shock; E87.1 Hypo-osmolality and hyponatremia; E55.9 Vitamin D deficiency, unspecified; E78.5 Hyperlipidemia, unspecified; E86.0 Dehydration; E87.5 Hyperkalemia; E87.6 Hypokalemia; G89.29 Other chronic pain; Z79.4 Long term (current) use of insulin; Z91.14 Patient's other noncompliance with medication regimen; Z91.040 Latex allergy status; Z91.018 Allergy to other foods
CPT/HCPCS: 36415; 71045; 80048; 80053; 81001; 82010; 82800; 82947; 82962; 83036; 83605; 83690; 83735; 84100; 84145; 84443; 84703; 85025; 87040; 87081; 87086; 93005; G0378; J1644; J1815; J2405; J2543; Q0162; J3480; J7030; J7050

== ENCOUNTER 2018-08-04 19:25 | Inpatient (IN) | payer MEDICAID ==
[~2018-08-04] VITALS: Ht 165.1 cm; Wt 96.8 kg
--- NOTE | 2018-08-04 19:38 | NUR ---
THIS IS A 23 YO FEMALE WHO PRESENTS TO THE ER C/O N/V, CHAVIRA AND DIZZINESS X 2 DAYS. PT IS CURRENTLY ON HER MENSTRUAL CYCLE. PT HAS HX OF TYPE 1 DM AND STATES "MY METER HAS READ "HI" FOR THE LAST FEW DAYS". PT AO X 4. SKIN PWD. RESP EVEN AND UNLABORED. PT NST IN THE 120'S ON PRODUCTION DESIGNER. PT ON CONT BP, CARDIAC AND O2 MONITORS. CALL LIGHT WITHIN REACH. WILL CONT TO MONITOR PT.
[2018-08-04] MEDS ORDERED: ONDANSETRON 2MG/ML, 2ML IVPush ONE (20:00)
[2018-08-04] MEDS ORDERED: SODIUM CHLORIDE 0.9% 1,000ML IVBOLUS ONE ×2 (20:00→22:00)
[2018-08-04 20:07] LABS: PH, VENOUS 7.212 pH (7.320-7.420)
[2018-08-04 20:20] LABS: ALANINE AMINOTRANSFERASE 18 U/L (12-78); ALBUMIN 4.2 g/dL (3.4-5.0); ANION GAP 19 mmol/L (5-15); CALCIUM 9.1 mg/dL (8.5-10.1); CHLORIDE 100 mmol/L (98-107); CREATININE 2.41 mg/dL (0.55-1.02)
[2018-08-04 20:22] LABS: ALKALINE PHOSPHATASE 135 U/L (45-117); BILIRUBIN,TOTAL 0.5 mg/dL (0.2-1.0); TOTAL PROTEIN 9.1 g/dL (6.4-8.2)
[2018-08-04 20:23] LABS: MEAN CORPUSCULAR HEMOGLOBIN 31.4 pg (27.0-34.8); MEAN CORPUSCULAR HGB CONC 33.6 g/dL (32.4-35.8); MEAN CORPUSCULAR VOLUME 93.5 fL (80-100); MEAN PLATELET VOLUME 8.7 fL (7.4-10.4); PLATELET COUNT 395 x10^3/uL (130-400); RED CELL DISTRIBUTION WIDTH 17.4 % (9.6-15.2)
[2018-08-04 20:28] LABS: ACETONE, SERUM Large (80mg/dL) mg/dL (Negative)
--- NOTE | 2018-08-04 20:40 | NUR ---
DELAY IN TREATING PT'S DMI D/T DIFFICULTY OBTAINING IV ACCESS. MX ATTEMPTS BY MX RNS INCLUDING US GUIDED IVS W/O SUCCESS. NARGIS MARTIN MADE AWARE. AWAITING ORDERS. NARGIS MARTIN AT BEDSIDE FOR RECHECK/EXPLANATION OF RESULTS AT THIS TIME. PT ON CONT BP, CARDIAC AND O2 MONITORS. CALL LIGHT WITHIN REACH. WILL CONT TO MONITOR PT.
[2018-08-04 20:50] LABS: BASOPHILS # (AUTO) 0.03 x10^3/uL (0-0.1); BASOPHILS % (AUTO) 1 % (0-1); EOSINOPHILS # (AUTO) 0.01 x10^3/uL (0-0.4); EOSINOPHILS % (AUTO) 0 % (1-7); LYMPHOCYTES # (AUTO) 1.46 x10^3/uL (1-3.4); LYMPHOCYTES % (AUTO) 26 % (22-44); MONOCYTES # (AUTO) 0.43 x10^3/uL (0.2-0.8); MONOCYTES % (AUTO) 8 % (2-9); NEUTROPHILS # (AUTO) 3.71 x10^3/uL (1.8-6.8); NEUTROPHILS % (AUTO) 66 % (42-75)
[2018-08-04 20:51] LABS: MD SCAN
[2018-08-04 20:59] LABS: CULTURE INDICATED? YES; MICROSCOPIC INDICATED
--- NOTE | 2018-08-04 21:00 | NUR ---
SIGNED CONSENT OBTAINED FOR CENTRAL LINE. PT SET UP IN ROOM. WILL CONT TO MONITOR PT.
--- NOTE | 2018-08-04 21:47 | NUR ---
REPORT TO ELLE NGUYEN WHO ASSUMED CARE OF PT. ANRGIS MARITN AT BEDSIDE FOR INSERTION OF FEMORAL CENTRAL LINE.
--- NOTE | 2018-08-04 21:52 | NUR ---
REPORT RECEIVED FROM ELLE HALEY. ASSUMED CARE OF PT.
[2018-08-04] MEDS ORDERED: REGULAR INSULIN 62.5 UNITS in SODIUM CHLORIDE 0.9% 249.375 ML IV PRN (21:57)
--- NOTE | 2018-08-04 22:06 | NUR ---
INSULIN DRIP REQUESTED FROM PHARMACY
[2018-08-04] MEDS ORDERED: hydrALAzine 20 MG/ML, 1ML IVPush PRN (22:30)
[2018-08-04] MEDS ORDERED: POLYETHYLENE GLYCOL 17 GM PACKET PO PRN (22:30)
--- NOTE | 2018-08-04 22:34 | NUR ---
INSULIN DRIP STARTED, VERIFIED WITH ELLE CHIRINOS. PT RESTING ON [place], PLAYING ON PHONE. IN NAD. VITALS STABLE. WILL CONTINUE TO MONITOR.
--- NOTE | 2018-08-04 22:54 | NUR ---
REPORT GIVEN TO ELLE JOHNSON
[2018-08-04] MEDS ORDERED: METOCLOPRAMIDE 5 MG/ML, 2ML IVPush PRN (23:00)
[2018-08-04 23:01] LABS: HEMOGLOBIN A1C 9.7 % (4.2-6.3)
[2018-08-04] MEDS ORDERED: ACETAMINOPHEN 325 MG TABLET ONE (23:28)
[2018-08-04] MEDS: SODIUM CHLORIDE 0.9% 1,000 ML IV SCH (23:29)
[2018-08-04] MEDS ORDERED: ACETAMINOPHEN 650 MG/20.3 ML UDC PO PRN (23:30)
[2018-08-05] MEDS ORDERED: ACETAMINOPHEN 325 MG TABLET PO PRN (00:30)
[2018-08-05 01:53] LABS: ANION GAP 9 mmol/L (5-15); CALCIUM 7.7 mg/dL (8.5-10.1); CHLORIDE 110 mmol/L (98-107); CREATININE 1.59 mg/dL (0.55-1.02)
[2018-08-05] MEDS: D5%-0.45% NACL 1,000 ML IV SCH ×4 (02:40→21:20)
[2018-08-05] MEDS: SODIUM CHLORIDE 0.9% 1,000 ML IV SCH (02:40)
[2018-08-05 08:04] LABS: BASOPHILS # (AUTO) 0.04 x10^3/uL (0-0.1); BASOPHILS % (AUTO) 1 % (0-1); EOSINOPHILS # (AUTO) 0.06 x10^3/uL (0-0.4); EOSINOPHILS % (AUTO) 1 % (1-7); LYMPHOCYTES # (AUTO) 1.95 x10^3/uL (1-3.4); LYMPHOCYTES % (AUTO) 38 % (22-44); MD NO; MEAN CORPUSCULAR HEMOGLOBIN 30.4 pg (27.0-34.8); MEAN CORPUSCULAR HGB CONC 32.9 g/dL (32.4-35.8); MEAN CORPUSCULAR VOLUME 92.4 fL (80-100); MEAN PLATELET VOLUME 7.7 fL (7.4-10.4); MONOCYTES # (AUTO) 0.57 x10^3/uL (0.2-0.8); MONOCYTES % (AUTO) 11 % (2-9); NEUTROPHILS # (AUTO) 2.47 x10^3/uL (1.8-6.8); NEUTROPHILS % (AUTO) 49 % (42-75); PLATELET COUNT 323 x10^3/uL (130-400); RED BLOOD COUNT 4.17 x10^6/uL (3.82-5.3)
[2018-08-05 10:28] LABS: ANION GAP 5 mmol/L (5-15); CALCIUM 7.6 mg/dL (8.5-10.1); CHLORIDE 109 mmol/L (98-107)
[2018-08-05] MEDS ORDERED: INSULIN GLARGINE 100 UNITS/ML, PEN SQ-INSULIN ONE (12:30)
[2018-08-05] MEDS ORDERED: DEXTROSE 4 GM TAB.CHEW PO PRN (12:30)
[2018-08-05] MEDS ORDERED: GLUCAGON 1 MG IM PRN (12:30)
[2018-08-05] MEDS ORDERED: DEXTROSE 50%, 50ML SYRINGE IVPush PRN (12:30)
[2018-08-05] MEDS ORDERED: INSULIN LISPRO 100 UNITS/ML, PEN SQ-INSULIN ONE (14:30)
[2018-08-05] MEDS: INSULIN LISPRO 100 UNITS/ML, PEN SQ-INSULIN SCH ×2 (15:32→21:31)
[2018-08-05 16:23] VITALS: BP 105/72
[2018-08-05 19:32] VITALS: BP 112/76
[2018-08-05] MEDS: INSULIN GLARGINE 100 UNITS/ML, PEN SQ-INSULIN SCH (21:32)
[2018-08-05] MEDS: SODIUM CHLORIDE FLUSH 10ML SYR IVF SCH (22:46)
[2018-08-06 00:34] VITALS: BP 95/63
[2018-08-06] MEDS: D5%-0.45% NACL 1,000 ML IV SCH (04:00)
[2018-08-06 05:10] LABS: BASOPHILS # (AUTO) 0.05 x10^3/uL (0-0.1); BASOPHILS % (AUTO) 1 % (0-1); EOSINOPHILS # (AUTO) 0.05 x10^3/uL (0-0.4); EOSINOPHILS % (AUTO) 1 % (1-7); LYMPHOCYTES # (AUTO) 2.56 x10^3/uL (1-3.4); LYMPHOCYTES % (AUTO) 43 % (22-44); MD NO; MEAN CORPUSCULAR HEMOGLOBIN 31.3 pg (27.0-34.8); MEAN CORPUSCULAR HGB CONC 33.2 g/dL (32.4-35.8); MEAN CORPUSCULAR VOLUME 94.3 fL (80-100); MEAN PLATELET VOLUME 7.9 fL (7.4-10.4); MONOCYTES % (AUTO) 9 % (2-9); NEUTROPHILS # (AUTO) 2.74 x10^3/uL (1.8-6.8); NEUTROPHILS % (AUTO) 46 % (42-75); PLATELET COUNT 283 x10^3/uL (130-400); RED BLOOD COUNT 4.13 x10^6/uL (3.82-5.3); RED CELL DISTRIBUTION WIDTH 17.4 % (9.6-15.2)
[2018-08-06 05:23] LABS: ANION GAP 7 mmol/L (5-15); CALCIUM 8.5 mg/dL (8.5-10.1); CHLORIDE 115 mmol/L (98-107)
[2018-08-06 05:27] LABS: ALANINE AMINOTRANSFERASE 18 U/L (12-78); ALKALINE PHOSPHATASE 90 U/L (45-117); BILIRUBIN,TOTAL 0.4 mg/dL (0.2-1.0); TOTAL PROTEIN 6.3 g/dL (6.4-8.2)
[2018-08-06] MEDS: INSULIN LISPRO 100 UNITS/ML, PEN SQ-INSULIN SCH ×4 (07:00→20:00)
[2018-08-06 07:42] VITALS: BP 107/74
[2018-08-06] MEDS: INSULIN GLARGINE 100 UNITS/ML, PEN SQ-INSULIN SCH ×2 (08:32→20:00)
[2018-08-06] MEDS: POTASSIUM CHLORIDE 20 MEQ TAB.ER.PRT PO SCH ×2 (08:42→12:08)
[2018-08-06] MEDS: SODIUM CHLORIDE FLUSH 10ML SYR IVF SCH ×2 (09:00→20:01)
[2018-08-06 12:49] VITALS: BP 118/88
[2018-08-06 19:28] VITALS: BP 107/75
[2018-08-06 20:11] LABS: ANION GAP 7 mmol/L (5-15); CALCIUM 8.2 mg/dL (8.5-10.1); CHLORIDE 107 mmol/L (98-107); CREATININE 1.15 mg/dL (0.55-1.02)
[2018-08-07 03:55] VITALS: BP 103/67
[2018-08-07 06:48] LABS: ANION GAP 7 mmol/L (5-15); CALCIUM 8.7 mg/dL (8.5-10.1); CHLORIDE 113 mmol/L (98-107)
[2018-08-07 07:38] VITALS: BP 114/78
[2018-08-07] MEDS: INSULIN LISPRO 100 UNITS/ML, PEN SQ-INSULIN SCH (07:51)
[2018-08-07] MEDS: SODIUM CHLORIDE FLUSH 10ML SYR IVF SCH (07:52)
[2018-08-07] MEDS: INSULIN GLARGINE 100 UNITS/ML, PEN SQ-INSULIN SCH (07:52)
== END 2018-08-07 09:50 | disposition home or self-care (01) | DRG 638 ==
LOC: ED 20:42 → EDIP 21:57 → CCU 23:07 → 3NE 08-05 15:42 → DCLOUNGE 08-07 09:48
PROVIDERS: ADMIT Family Medicine; ATTEND Family Medicine
PROC: 02HV33Z Insertion of Infusion Device into Superior Vena Cava, Percutaneous Approach (ICD-10-PCS; principal; 2018-08-04)
PROC: B548ZZA Ultrasonography of Superior Vena Cava, Guidance (ICD-10-PCS; 2018-08-04)
DX: E10.10 Type 1 diabetes mellitus with ketoacidosis without coma (principal); E87.1 Hypo-osmolality and hyponatremia; N17.9 Acute kidney failure, unspecified; D75.1 Secondary polycythemia; E86.0 Dehydration; F12.90 Cannabis use, unspecified, uncomplicated; F17.200 Nicotine dependence, unspecified, uncomplicated; I10 Essential (primary) hypertension; Z79.4 Long term (current) use of insulin; Z91.14 Patient's other noncompliance with medication regimen
CPT/HCPCS: 36415; 36569; 76770; 80048; 80053; 81001; 82010; 82803; 82947; 82962; 83036; 83735; 84100; 85025; 87081; 87086; 93005; 96361; 96374; G0378; J1815; J7030

== ENCOUNTER 2018-08-11 12:49 | Inpatient (IN) | payer MEDICAID ==
[~2018-08-11] VITALS: Ht 165.1 cm; Wt 83.5 kg
[2018-08-11] MEDS ORDERED: SODIUM CHLORIDE 0.9% 1,000 ML IV ONE (13:08)
--- NOTE | 2018-08-11 13:23 | NUR ---
report received from ELLE Anguiano at bedside, this RN to assume care at this time.
[2018-08-11] MEDS ORDERED: LISI5TAB7 PO (13:28)
[2018-08-11] MEDS ORDERED: HUMALOG SQ-INSULIN (13:28)
--- NOTE | 2018-08-11 13:40 | NUR ---
pt a&o, resps even and unlabored, denies pain. pt denies nausea, no vomiting. pt instructed to provide clean catch ua, pt ambulating to bathroom with steady gait at this time.
[2018-08-11 13:51] LABS: PH, VENOUS 7.203 pH (7.320-7.420)
[2018-08-11 13:52] LABS: FIO2 RA %
--- NOTE | 2018-08-11 13:57 | NUR ---
EDPR Law notified of bicarb level 9.2 per lab.
[2018-08-11 14:03] LABS: ALANINE AMINOTRANSFERASE 19 U/L (12-78); ALBUMIN 3.9 g/dL (3.4-5.0); ANION GAP 24 mmol/L (5-15); CALCIUM 9.3 mg/dL (8.5-10.1); CHLORIDE 96 mmol/L (98-107); CREATININE 1.68 mg/dL (0.55-1.02)
[2018-08-11 14:07] LABS: MEAN CORPUSCULAR HEMOGLOBIN 30.4 pg (27.0-34.8); MEAN CORPUSCULAR HGB CONC 31.3 g/dL (32.4-35.8); RED BLOOD COUNT 5.02 x10^6/uL (3.82-5.3); RED CELL DISTRIBUTION WIDTH 16.9 % (9.6-15.2)
[2018-08-11 14:08] LABS: ALKALINE PHOSPHATASE 177 U/L (45-117); BILIRUBIN,TOTAL 0.4 mg/dL (0.2-1.0); TOTAL PROTEIN 8.4 g/dL (6.4-8.2)
[2018-08-11 14:09] LABS: ACETONE, SERUM Large (80mg/dL) mg/dL (Negative)
[2018-08-11 14:13] LABS: MEAN PLATELET VOLUME 9.1 fL (7.4-10.4); PLATELET COUNT 312 x10^3/uL (130-400)
[2018-08-11 14:14] LABS: MICROSCOPIC NOT IND
[2018-08-11 14:15] LABS: BASOPHILS # (AUTO) 0.06 x10^3/uL (0-0.1); BASOPHILS % (AUTO) 1 % (0-1); EOSINOPHILS # (AUTO) 0.01 x10^3/uL (0-0.4); EOSINOPHILS % (AUTO) 0 % (1-7); LYMPHOCYTES # (AUTO) 0.78 x10^3/uL (1-3.4); LYMPHOCYTES % (AUTO) 8 % (22-44); MD SCAN; MONOCYTES # (AUTO) 0.22 x10^3/uL (0.2-0.8); MONOCYTES % (AUTO) 2 % (2-9); NEUTROPHILS # (AUTO) 8.61 x10^3/uL (1.8-6.8); NEUTROPHILS % (AUTO) 89 % (42-75)
[2018-08-11 14:17] LABS: CULTURE INDICATED? NO
[2018-08-11] MEDS ORDERED: SODIUM CHLORIDE 0.9% 1,000 ML IV SCH (14:24)
[2018-08-11] MEDS: D5%-0.45NACL+KCL 20MEQ 1,000 ML IV SCH ×2 (14:24→22:39)
[2018-08-11] MEDS ORDERED: LACTATED RINGERS 1,000 ML IVBOLUS ONE (14:30)
[2018-08-11] MEDS ORDERED: REGULAR INSULIN 125 UNITS in SODIUM CHLORIDE 0.9% 248.75 ML IV PRN (14:30)
[2018-08-11] MEDS ORDERED: ACETAMINOPHEN 325 MG TABLET PO PRN (14:30)
[2018-08-11] MEDS ORDERED: REGULAR INSULIN 62.5 UNITS in SODIUM CHLORIDE 0.9% 249.375 ML IV PRN (14:30)
[2018-08-11] MEDS ORDERED: POLYETHYLENE GLYCOL 17 GM PACKET PO PRN (14:30)
[2018-08-11] MEDS ORDERED: LABETALOL 5MG/ML, 20ML IVPush PRN (14:30)
[2018-08-11] MEDS ORDERED: ONDANSETRON ODT 4 MG PO PRN (14:30)
--- NOTE | 2018-08-11 14:35 | NUR ---
EDMD LAW NOTIFIED BG 765. OTHER LABS REVIEWED BY EDMD.
--- NOTE | 2018-08-11 14:47 | NUR ---
INSULIN GTT REQUESTED FROM PHARMACY
[2018-08-11 14:50] LABS: ACETONE, URINE Large (80mg/dL) (Negative)
--- NOTE | 2018-08-11 14:56 | NUR ---
EDMD LAW AT BEDSIDE TO START CENTRAL LINE.
--- NOTE | 2018-08-11 15:10 | NUR ---
report given to ELLE Ellington. pt moved to trauma room 4 for central line placement.
--- NOTE | 2018-08-11 15:52 | NUR ---
central line placement in progress by MD Aleman and MD Bryant. all monitors in place.
--- NOTE | 2018-08-11 16:46 | NUR ---
central line placement completed by , central line dressing placed with sterile technique by RN. dressing CDI. MD soria visualized xray results and ok'd central line use prior to ED depart. pt transported to CCU by RN and EDT. Receiving RN Rakel given updated report including fingerstick glucose measured at 1610 reading "high" and bp 106/37 prior to transport. bp on arrival to CCU is 106/46, MD Penaloza aware. pt is a&ox4, at time of transfer, sinus tach rate 100's on monitor with no ectopy. pt's significant other came with pt to CCU, pt transported with all belongings including purse.
[2018-08-11 16:49] VITALS: BP 106/45
[2018-08-11] MEDS: ENOXAPARIN 40 MG/0.4 ML SQ SCH (17:07)
[2018-08-11 18:36] LABS: ANION GAP 19 mmol/L (5-15); CALCIUM 8.2 mg/dL (8.5-10.1); CHLORIDE 108 mmol/L (98-107); CREATININE 1.51 mg/dL (0.55-1.02)
[2018-08-11 23:19] LABS: ANION GAP 10 mmol/L (5-15); CALCIUM 8.2 mg/dL (8.5-10.1); CHLORIDE 113 mmol/L (98-107); CREATININE 1.43 mg/dL (0.55-1.02)
[2018-08-12 03:43] LABS: ANION GAP 8 mmol/L (5-15); CALCIUM 8.2 mg/dL (8.5-10.1); CHLORIDE 112 mmol/L (98-107); CREATININE 1.24 mg/dL (0.55-1.02)
[2018-08-12 04:00] VITALS: BP 115/49
[2018-08-12] MEDS: D5%-0.45NACL+KCL 20MEQ 1,000 ML IV SCH (06:49)
[2018-08-12] MEDS: INSULIN LISPRO 100 UNITS/ML, PEN SQ-INSULIN SCH ×4 (07:50→20:53)
[2018-08-12] MEDS: SENNA/DOCUSATE TABLET PO SCH (07:50)
[2018-08-12] MEDS: INSULIN GLARGINE 100 UNITS/ML, PEN SQ-INSULIN SCH ×2 (07:50→20:52)
[2018-08-12 13:54] VITALS: BP 98/61
[2018-08-12] MEDS: ENOXAPARIN 40 MG/0.4 ML SQ SCH (14:30)
[2018-08-12 18:45] VITALS: BP 101/67
[2018-08-13 01:55] VITALS: BP 108/72
[2018-08-13 05:36] LABS: ANION GAP 7 mmol/L (5-15); CALCIUM 8.3 mg/dL (8.5-10.1); CHLORIDE 113 mmol/L (98-107)
[2018-08-13 05:37] LABS: CREATININE 0.88 mg/dL (0.55-1.02)
[2018-08-13] MEDS: INSULIN LISPRO 100 UNITS/ML, PEN SQ-INSULIN SCH (07:00)
[2018-08-13] MEDS ORDERED: POTASSIUM CHLORIDE 20 MEQ TAB.ER.PRT PO ONE (07:00)
[2018-08-13] MEDS: INSULIN GLARGINE 100 UNITS/ML, PEN SQ-INSULIN SCH (08:35)
[2018-08-13] MEDS: SENNA/DOCUSATE TABLET PO SCH (08:36)
== END 2018-08-13 10:02 | disposition home or self-care (01) | DRG 637 ==
LOC: ED 13:53 → EDIP 14:24 → CCU 16:26 → 3NE 08-12 09:31
PROVIDERS: ADMIT Internal Medicine; ATTEND Internal Medicine
PROC: 02HV33Z Insertion of Infusion Device into Superior Vena Cava, Percutaneous Approach (ICD-10-PCS; principal; 2018-08-11)
PROC: B548ZZA Ultrasonography of Superior Vena Cava, Guidance (ICD-10-PCS; 2018-08-11)
DX: E10.10 Type 1 diabetes mellitus with ketoacidosis without coma (principal); N17.0 Acute kidney failure with tubular necrosis; E87.1 Hypo-osmolality and hyponatremia; Z91.14 Patient's other noncompliance with medication regimen; Z91.19 Patient's noncompliance with other medical treatment and regimen; E87.8 Other disorders of electrolyte and fluid balance, not elsewhere classified; E78.5 Hyperlipidemia, unspecified; E55.9 Vitamin D deficiency, unspecified; Z79.4 Long term (current) use of insulin
CPT/HCPCS: 36415; 71045; 80048; 80053; 81003; 82009; 82010; 82803; 82947; 82962; 83735; 83930; 84100; 84703; 85025; 87081; 93005; 96360; 96361; G0378; J1815; J3480; J7030; J7050; J7120

== ENCOUNTER 2018-08-21 16:32 | Emergency (ER) | payer MEDICAID ==
[~2018-08-21] VITALS: Ht 165.1 cm; Wt 83.0 kg
[~2018-08-21 16:32] MED LIST changes: +HUMALOG SQ-INSULIN; +LISI5TAB7 PO
--- NOTE | 2018-08-21 16:43 | NUR ---
PT PRESENTED TO ED WITH MIDEPIGASTRIC ABD PAIN SINCE LAST NIGHT. PT A&OX4. PT IS TYPE 1 DM. PT PLACED IN ROOM AND PLACED ON BP AND CONT. PULSE OXIMETER. ASSESSMENT COMPLETED. CALL LIGHT IN REACH. PA AT BEDSIDE
[2018-08-21 17:01] LABS: BASOPHILS # (AUTO) 0.02 x10^3/uL (0-0.1); BASOPHILS % (AUTO) 0 % (0-1); EOSINOPHILS # (AUTO) 0.03 x10^3/uL (0-0.4); EOSINOPHILS % (AUTO) 0 % (1-7); LYMPHOCYTES # (AUTO) 1.55 x10^3/uL (1-3.4); LYMPHOCYTES % (AUTO) 20 % (22-44); MD NO; MEAN CORPUSCULAR HEMOGLOBIN 32.1 pg (27.0-34.8); MEAN CORPUSCULAR VOLUME 97.3 fL (80-100); MEAN PLATELET VOLUME 8.7 fL (7.4-10.4); MONOCYTES # (AUTO) 0.39 x10^3/uL (0.2-0.8); MONOCYTES % (AUTO) 5 % (2-9); NEUTROPHILS # (AUTO) 5.89 x10^3/uL (1.8-6.8); NEUTROPHILS % (AUTO) 75 % (42-75); PH, VENOUS 7.335 pH (7.320-7.420); PLATELET COUNT 327 x10^3/uL (130-400); RED BLOOD COUNT 4.78 x10^6/uL (3.82-5.3); RED CELL DISTRIBUTION WIDTH 16.1 % (9.6-15.2)
[2018-08-21 17:11] LABS: MICROSCOPIC NOT IND
[2018-08-21 17:17] LABS: FIO2 ROOM AIR %
--- NOTE | 2018-08-21 17:19 | NUR ---
LAB TO REDRAW PT.
[2018-08-21 17:42] LABS: CULTURE INDICATED? NO
[2018-08-21 17:48] LABS: ALANINE AMINOTRANSFERASE 20 U/L (12-78); ALBUMIN 3.2 g/dL (3.4-5.0); ANION GAP 6 mmol/L (5-15); CALCIUM 8.6 mg/dL (8.5-10.1); CHLORIDE 105 mmol/L (98-107); CREATININE 0.92 mg/dL (0.55-1.02)
[2018-08-21 17:52] LABS: ALKALINE PHOSPHATASE 116 U/L (45-117); BILIRUBIN,TOTAL 0.3 mg/dL (0.2-1.0); TOTAL PROTEIN 6.8 g/dL (6.4-8.2)
[2018-08-21 18:00] LABS: ACETONE, SERUM Small (20mg/dL) mg/dL (Negative)
--- NOTE | 2018-08-21 18:12 | NUR ---
PT UP FOR RECHECK.
[2018-08-21] MEDS ORDERED: INSULIN REGULAR 100 UNITS/ML, 3ML VIAL SQ-INSULIN SCH (18:30)
[2018-08-21] MEDS ORDERED: INSULIN SINGLE DOSE, ER SQ-INSULIN ONE (18:33)
[2018-08-21 18:41] VITALS: BP 111/46
== END 2018-08-21 18:50 | disposition home or self-care (01) ==
LOC: ED 18:03
DX: K29.00 Acute gastritis without bleeding (principal); E11.65 Type 2 diabetes mellitus with hyperglycemia; I10 Essential (primary) hypertension; Z72.9 Problem related to lifestyle, unspecified
CPT/HCPCS: 36415; 80053; 81003; 82010; 82803; 83690; 84703; 85025; 96372; 99283

== ENCOUNTER 2018-09-01 09:59 | Inpatient (IN) | payer MEDICAID ==
[~2018-09-01] VITALS: Ht 165.1 cm; Wt 84.4 kg
--- NOTE | 2018-09-01 10:10 | NUR ---
Patient brought in by EMS from home for hyperglycemia and vomiting, patient states she had yellow vomit beginning at 0500 and bloody vomit beginning at 0900. Patient states she has been follow insulin regimen but hyperglycemia persists. Patient reports lower abdominal pain and chest pain. Zofran taken by patient prior to EMS arrival.
--- NOTE | 2018-09-01 10:17 | NUR ---
Patient states she needs to use the restroom urgently during IV start. No IV access obtained after first attempt, patient ambulates to restroom with fiance with steady gait.
[2018-09-01] MEDS ORDERED: SODIUM CHLORIDE 0.9% 1,000ML IVBOLUS ONE ×2 (10:30→12:30)
[2018-09-01] MEDS ORDERED: ONDANSETRON 2MG/ML, 2ML IVPush ONE ×2 (10:30→12:30)
[2018-09-01] MEDS ORDERED: FAMOTIDINE 20 MG/2 ML IVPush ONE (10:30)
--- NOTE | 2018-09-01 10:58 | NUR ---
Second RN to attempt vascular access using ultrasound, unable to gain IV access. Dr. Enamorado notified, lab to attempt venapuncture for lab draw, will address IV access after lab results received. Patient updated, questions answered. Continuous blood pressure, SPO2 and cardiac monitoring in place, call godinez within reach.
--- NOTE | 2018-09-01 11:27 | NUR ---
Patient's blood sugar checked, read "high", Dr. Enamorado notified.
[2018-09-01 11:29] LABS: MEAN CORPUSCULAR HEMOGLOBIN 31.7 pg (27.0-34.8); MEAN CORPUSCULAR HGB CONC 30.6 g/dL (32.4-35.8); MEAN CORPUSCULAR VOLUME 103.7 fL (80-100); MEAN PLATELET VOLUME 9.8 fL (7.4-10.4); PLATELET COUNT 366 x10^3/uL (130-400); RED BLOOD COUNT 4.81 x10^6/uL (3.82-5.3); RED CELL DISTRIBUTION WIDTH 14.4 % (9.6-15.2)
[2018-09-01 11:32] LABS: ALBUMIN 4.1 g/dL (3.4-5.0); ANION GAP 30 mmol/L (5-15); CALCIUM 9.6 mg/dL (8.5-10.1); CHLORIDE 87 mmol/L (98-107)
[2018-09-01 11:35] LABS: ALANINE AMINOTRANSFERASE 20 U/L (12-78); ALKALINE PHOSPHATASE 172 U/L (45-117); BILIRUBIN,TOTAL 0.4 mg/dL (0.2-1.0); CREATININE 2.32 mg/dL (0.55-1.02); TOTAL PROTEIN 8.5 g/dL (6.4-8.2)
[2018-09-01 11:49] LABS: ACETONE, SERUM Large (80mg/dL) mg/dL (Negative)
[2018-09-01] MEDS ORDERED: REGULAR INSULIN 62.5 UNITS in SODIUM CHLORIDE 0.9% 249.375 ML IV PRN ×2 (12:04→15:00)
--- NOTE | 2018-09-01 12:05 | NUR ---
Per Dr. Enamorado patient to be moved to critical care room for central line placement and closer monitoring. mold release worker notified.
--- NOTE | 2018-09-01 12:07 | NUR ---
Report to ELLE Schafer
[2018-09-01 12:09] LABS: MD YES
[2018-09-01 12:11] LABS: BAND#(MANUAL) 1.58 x10^3/uL; BANDS%(MANUAL) 8 % (0-7); EOS% (MANUAL) 1 % (1-7); LYMPH#(MANUAL) 1.38 x10^3/uL (1-3.4); LYMPHS% (MANUAL) 7 % (22-44); METAMYELOCYTES% (MANUAL) 1 % (0-1); MONOS% (MANUAL) 1 % (2-9); SEG#(MANUAL) 16.15 x10^3/uL (1.8-6.8); SEGS% (MANUAL) 82 % (42-75)
[2018-09-01 12:13] LABS: <RBC MORPHOLOGY> NORMAL
[2018-09-01 12:14] LABS: <PLATELET ESTIMATE> ADEQUATE; <PLT MORPHOLOGY> NORMAL PLT MORPH
--- NOTE | 2018-09-01 12:22 | NUR ---
Assumed care of pt. Pt in pain. IV access established. VSS.
[2018-09-01] MEDS ORDERED: SODIUM BICARB 8.4%, 50ML SYRINGE ONE (12:28)
[2018-09-01] MEDS ORDERED: ONDANSETRON 2MG/ML, 2ML ONE (12:28)
[2018-09-01] MEDS ORDERED: FAMOTIDINE 20 MG/2 ML ONE (12:29)
[2018-09-01] MEDS ORDERED: SODIUM BICARBONATE 1 MEQ/ML, 50ML VIAL IVPush ONE (12:30)
[2018-09-01] MEDS ORDERED: INSULIN REGULAR 100 UNITS/ML, 3ML VIAL SQ-INSULIN ONE (12:30)
[2018-09-01] MEDS ORDERED: CALCIUM GLUCONATE 9.2 MEQ in SODIUM CHLORIDE 0.9% 100 ML IV ONE (12:30)
[2018-09-01] MEDS ORDERED: INSULIN SINGLE DOSE, ER SQ-INSULIN ONE (12:30)
[2018-09-01] MEDS ORDERED: SODIUM CHLORIDE 0.9%, 500ML IVBOLUS ONE (14:30)
[2018-09-01] MEDS ORDERED: BISACODYL 10 MG SUPP PR PRN (14:30)
[2018-09-01] MEDS ORDERED: POLYETHYLENE GLYCOL 17 GM PACKET PO PRN (14:30)
[2018-09-01] MEDS ORDERED: ACETAMINOPHEN 325 MG TABLET PO PRN (14:30)
[2018-09-01] MEDS ORDERED: DOCUSATE 100 MG CAPSULE PO PRN (14:30)
[2018-09-01 14:50] LABS: ANION GAP 30 mmol/L (5-15); CALCIUM 9.3 mg/dL (8.5-10.1); CHLORIDE 96 mmol/L (98-107)
[2018-09-01 14:53] LABS: CREATININE 2.09 mg/dL (0.55-1.02)
[2018-09-01] MEDS: ONDANSETRON 2MG/ML, 2ML IVPush PRN (15:43)
[2018-09-01] MEDS: SODIUM CHLORIDE 0.9% 1,000 ML IV SCH ×2 (15:44→19:30)
[2018-09-01 16:27] LABS: MICROSCOPIC NOT IND
[2018-09-01 16:28] LABS: CULTURE INDICATED? NO
[2018-09-01] MEDS: HEPARIN 5,000 UNITS/ML, 1ML SQ SCH (18:39)
[2018-09-01 18:40] LABS: ANION GAP 21 mmol/L (5-15); CALCIUM 8.1 mg/dL (8.5-10.1); CHLORIDE 110 mmol/L (98-107); CREATININE 1.76 mg/dL (0.55-1.02)
[2018-09-01] MEDS: D5%-0.45% NACL 1,000 ML IV PRN (20:31)
[2018-09-01 22:41] LABS: ANION GAP 19 mmol/L (5-15); CALCIUM 7.9 mg/dL (8.5-10.1); CHLORIDE 112 mmol/L (98-107); CREATININE 1.66 mg/dL (0.55-1.02)
[2018-09-02] MEDS: SODIUM CHLORIDE 0.9% 1,000 ML IV SCH ×2 (00:30→03:47)
[2018-09-02 01:56] LABS: ANION GAP 12 mmol/L (5-15); CALCIUM 7.8 mg/dL (8.5-10.1); CHLORIDE 115 mmol/L (98-107); CREATININE 1.57 mg/dL (0.55-1.02)
[2018-09-02] MEDS: ONDANSETRON 2MG/ML, 2ML IVPush PRN (03:47)
[2018-09-02] MEDS: HEPARIN 5,000 UNITS/ML, 1ML SQ SCH ×3 (03:47→18:15)
[2018-09-02 04:00] VITALS: BP 134/74
[2018-09-02 04:33] LABS: BASOPHILS # (AUTO) 0.03 x10^3/uL (0-0.1); BASOPHILS % (AUTO) 0 % (0-1); EOSINOPHILS # (AUTO) 0.01 x10^3/uL (0-0.4); EOSINOPHILS % (AUTO) 0 % (1-7); LYMPHOCYTES # (AUTO) 2.08 x10^3/uL (1-3.4); LYMPHOCYTES % (AUTO) 20 % (22-44); MD NO; MEAN CORPUSCULAR HEMOGLOBIN 32.6 pg (27.0-34.8); MEAN CORPUSCULAR HGB CONC 33.5 g/dL (32.4-35.8); MEAN CORPUSCULAR VOLUME 97.3 fL (80-100); MEAN PLATELET VOLUME 8.5 fL (7.4-10.4); MONOCYTES # (AUTO) 0.77 x10^3/uL (0.2-0.8); MONOCYTES % (AUTO) 7 % (2-9); NEUTROPHILS # (AUTO) 7.78 x10^3/uL (1.8-6.8); NEUTROPHILS % (AUTO) 73 % (42-75); PLATELET COUNT 294 x10^3/uL (130-400); RED BLOOD COUNT 3.76 x10^6/uL (3.82-5.3); RED CELL DISTRIBUTION WIDTH 15.1 % (9.6-15.2)
[2018-09-02 04:38] LABS: ANION GAP 11 mmol/L (5-15); CHLORIDE 116 mmol/L (98-107)
[2018-09-02 05:06] LABS: ALANINE AMINOTRANSFERASE 14 U/L (12-78); ALKALINE PHOSPHATASE 94 U/L (45-117); BILIRUBIN,TOTAL 0.3 mg/dL (0.2-1.0); CREATININE 1.53 mg/dL (0.55-1.02); TOTAL PROTEIN 6.3 g/dL (6.4-8.2)
[2018-09-02] MEDS: D5%-0.45% NACL 1,000 ML IV PRN (05:13)
[2018-09-02] MEDS ORDERED: LISINOPRIL 5 MG TABLET PO SCH (09:00)
[2018-09-02 09:03] LABS: ANION GAP 11 mmol/L (5-15); CALCIUM 8.1 mg/dL (8.5-10.1); CHLORIDE 115 mmol/L (98-107)
[2018-09-02] MEDS ORDERED: INSULIN GLARGINE 100 UNITS/ML, PEN SQ-INSULIN SCH (11:30)
[2018-09-02 16:46] VITALS: BP 116/79
[2018-09-02] MEDS ORDERED: GLUCAGON 1 MG IM PRN (18:00)
[2018-09-02] MEDS ORDERED: DEXTROSE 50%, 50ML SYRINGE IVPush PRN (18:00)
[2018-09-02] MEDS ORDERED: DEXTROSE 4 GM TAB.CHEW PO PRN (18:00)
[2018-09-02] MEDS: INSULIN LISPRO 100 UNITS/ML, PEN SQ-INSULIN SCH ×2 (18:13→20:54)
[2018-09-02 20:19] VITALS: BP 107/63
[2018-09-02] MEDS: INSULIN GLARGINE 100 UNITS/ML, PEN SQ-INSULIN SCH (20:54)
[2018-09-02] MEDS: SODIUM CHLORIDE FLUSH 10ML SYR IVF SCH (20:55)
[2018-09-03 01:34] VITALS: BP 101/58
[2018-09-03] MEDS: HEPARIN 5,000 UNITS/ML, 1ML SQ SCH (04:32)
[2018-09-03] MEDS: ONDANSETRON 2MG/ML, 2ML IVPush PRN ×2 (04:36→23:18)
[2018-09-03 05:09] LABS: BASOPHILS # (AUTO) 0.06 x10^3/uL (0-0.1); BASOPHILS % (AUTO) 1 % (0-1); EOSINOPHILS # (AUTO) 0.03 x10^3/uL (0-0.4); EOSINOPHILS % (AUTO) 0 % (1-7); LYMPHOCYTES # (AUTO) 2.35 x10^3/uL (1-3.4); LYMPHOCYTES % (AUTO) 34 % (22-44); MD NO; MEAN CORPUSCULAR HEMOGLOBIN 31.9 pg (27.0-34.8); MEAN CORPUSCULAR HGB CONC 32.8 g/dL (32.4-35.8); MEAN CORPUSCULAR VOLUME 97.2 fL (80-100); MEAN PLATELET VOLUME 7.9 fL (7.4-10.4); MONOCYTES # (AUTO) 0.36 x10^3/uL (0.2-0.8); MONOCYTES % (AUTO) 5 % (2-9); NEUTROPHILS # (AUTO) 4.15 x10^3/uL (1.8-6.8); NEUTROPHILS % (AUTO) 60 % (42-75); PLATELET COUNT 201 x10^3/uL (130-400); RED BLOOD COUNT 3.63 x10^6/uL (3.82-5.3); RED CELL DISTRIBUTION WIDTH 15.3 % (9.6-15.2)
[2018-09-03 05:14] LABS: ANION GAP 8 mmol/L (5-15); CALCIUM 8.2 mg/dL (8.5-10.1); CHLORIDE 109 mmol/L (98-107); CREATININE 1.05 mg/dL (0.55-1.02)
[2018-09-03 07:08] VITALS: BP 121/81
[2018-09-03] MEDS: INSULIN LISPRO 100 UNITS/ML, PEN SQ-INSULIN SCH ×4 (08:10→21:58)
[2018-09-03] MEDS: INSULIN GLARGINE 100 UNITS/ML, PEN SQ-INSULIN SCH (08:10)
[2018-09-03] MEDS: SODIUM CHLORIDE FLUSH 10ML SYR IVF SCH ×2 (08:11→21:59)
[2018-09-03] MEDS ORDERED: MAGNESIUM SULFATE PMX 2GM/50ML 50 ML IV ONE (10:30)
[2018-09-03] MEDS: ENOXAPARIN 40 MG/0.4 ML SQ SCH (12:08)
[2018-09-03] MEDS: POTASSIUM ACID PHOSPHATE 500 MG TABLET.SOL PO SCH ×2 (12:40→18:46)
[2018-09-03 13:43] VITALS: BP 137/85
[2018-09-03 19:33] VITALS: BP 122/83
[2018-09-03] MEDS ORDERED: INSULIN GLARGINE 100 UNITS/ML, PEN SQ-INSULIN SCH (21:00)
[2018-09-04] MEDS: POTASSIUM ACID PHOSPHATE 500 MG TABLET.SOL PO SCH ×2 (00:31→06:21)
[2018-09-04 02:02] VITALS: BP 124/82
[2018-09-04 04:34] LABS: BASOPHILS # (AUTO) 0.03 x10^3/uL (0-0.1); BASOPHILS % (AUTO) 1 % (0-1); EOSINOPHILS # (AUTO) 0.03 x10^3/uL (0-0.4); EOSINOPHILS % (AUTO) 1 % (1-7); LYMPHOCYTES # (AUTO) 1.68 x10^3/uL (1-3.4); LYMPHOCYTES % (AUTO) 33 % (22-44); MD NO; MEAN CORPUSCULAR HEMOGLOBIN 32.7 pg (27.0-34.8); MEAN CORPUSCULAR HGB CONC 33.2 g/dL (32.4-35.8); MEAN CORPUSCULAR VOLUME 98.7 fL (80-100); MEAN PLATELET VOLUME 8.2 fL (7.4-10.4); MONOCYTES # (AUTO) 0.37 x10^3/uL (0.2-0.8); MONOCYTES % (AUTO) 7 % (2-9); NEUTROPHILS # (AUTO) 2.97 x10^3/uL (1.8-6.8); NEUTROPHILS % (AUTO) 58 % (42-75); PLATELET COUNT 188 x10^3/uL (130-400); RED BLOOD COUNT 3.68 x10^6/uL (3.82-5.3); RED CELL DISTRIBUTION WIDTH 14.9 % (9.6-15.2)
[2018-09-04 04:44] LABS: ALBUMIN 2.8 g/dL (3.4-5.0); ANION GAP 8 mmol/L (5-15); CALCIUM 8.3 mg/dL (8.5-10.1); CHLORIDE 107 mmol/L (98-107)
[2018-09-04 04:47] LABS: ALANINE AMINOTRANSFERASE 16 U/L (12-78); ALKALINE PHOSPHATASE 107 U/L (45-117); BILIRUBIN,TOTAL 0.4 mg/dL (0.2-1.0); CREATININE 1.01 mg/dL (0.55-1.02); TOTAL PROTEIN 6.2 g/dL (6.4-8.2)
[2018-09-04 07:18] VITALS: BP 120/82
[2018-09-04] MEDS: INSULIN LISPRO 100 UNITS/ML, PEN SQ-INSULIN SCH ×2 (07:31→11:23)
[2018-09-04] MEDS: SODIUM CHLORIDE FLUSH 10ML SYR IVF SCH (07:33)
[2018-09-04] MEDS ORDERED: INSULIN GLARGINE 100 UNITS/ML, PEN SQ-INSULIN SCH ×2 (09:00→21:00)
[2018-09-04] MEDS ORDERED: MAGNESIUM OXIDE 400 MG TABLET PO SCH (09:00)
[2018-09-04] MEDS: ENOXAPARIN 40 MG/0.4 ML SQ SCH (11:23)
[2018-09-04] MEDS ORDERED: MAGNESIUM SULFATE PMX 2GM/50ML 50 ML IV ONE (11:30)
[2018-09-04] MEDS ORDERED: MAGN400T50 PO (11:45)
[2018-09-04] MEDS ORDERED: INSU100I11 SQ-INSULIN (11:45)
[2018-09-04] MEDS ORDERED: INSU100V8 SQ (11:45)
[2018-09-04 12:55] VITALS: BP 118/82
== END 2018-09-04 14:56 | disposition home health service (06) | DRG 637 ==
LOC: ED 11:20 → EDIP 12:48 → CCU 13:56 → 4NOR 09-02 16:40 → DCLOUNGE 09-04 14:50
PROVIDERS: ADMIT Internal Medicine; ATTEND Internal Medicine
PROC: 02HV33Z Insertion of Infusion Device into Superior Vena Cava, Percutaneous Approach (ICD-10-PCS; principal; 2018-09-01)
PROC: B5181ZA Fluoroscopy of Superior Vena Cava using Low Osmolar Contrast, Guidance (ICD-10-PCS; 2018-09-01)
PROC: B548ZZA Ultrasonography of Superior Vena Cava, Guidance (ICD-10-PCS; 2018-09-01)
DX: E10.10 Type 1 diabetes mellitus with ketoacidosis without coma (principal); N17.0 Acute kidney failure with tubular necrosis; R65.10 Systemic inflammatory response syndrome (SIRS) of non-infectious origin without acute organ dysfunction; D72.825 Bandemia; E10.649 Type 1 diabetes mellitus with hypoglycemia without coma; E86.0 Dehydration; E87.5 Hyperkalemia; I10 Essential (primary) hypertension; E83.42 Hypomagnesemia; E83.39 Other disorders of phosphorus metabolism; Z87.891 Personal history of nicotine dependence; Z79.4 Long term (current) use of insulin; Z91.19 Patient's noncompliance with other medical treatment and regimen; Z79.899 Other long term (current) drug therapy; Z88.8 Allergy status to other drugs, medicaments and biological substances; Z91.040 Latex allergy status
CPT/HCPCS: 36415; 99285; J3490; 36573; 71045; 80048; 80053; 81003; 82010; 82607; 82947; 82962; 83690; 83735; 84100; 84703; 85025; 87081; 93005; 96365; 96372; 96375; G0378; J0610; J1644; J1650; J1815; J2405; C1751; C1769; J3475; J7030; J7040; J7050

== ENCOUNTER 2018-09-10 11:28 | Inpatient (IN) | payer MEDICAID ==
[~2018-09-10] VITALS: Ht 165.1 cm; Wt 86.2 kg
[~2018-09-10 11:28] MED LIST changes: +MAGN400T50 PO
--- NOTE | 2018-09-10 11:35 | NUR ---
Blood sugar read HI (>600) in triage.
--- NOTE | 2018-09-10 11:49 | NUR ---
PT TO ER RM 2 WITH C/O OF NAUSEA BEGINNING AT 0700 THIS AM. PT STATES SHE TOOK HER BLOOD SUGAR AND IT READ >500 ON HER HOME MACHINE. PT DENIES ANY VOMITTING, CP, SOB. ERMD AT BEDSIDE TO EVAL PT. ERMD ESTABLISHED EJ ACCESS, PT IS KNOWN DIFFICULT STICK. PT WITH FAMILY AT BEDSIDE
[2018-09-10 12:51] LABS: MEAN CORPUSCULAR HEMOGLOBIN 32.5 pg (27.0-34.8); MEAN CORPUSCULAR HGB CONC 32.8 g/dL (32.4-35.8); MEAN CORPUSCULAR VOLUME 98.9 fL (80-100); MEAN PLATELET VOLUME 9.1 fL (7.4-10.4); PLATELET COUNT 378 x10^3/uL (130-400); RED BLOOD COUNT 4.35 x10^6/uL (3.82-5.3); RED CELL DISTRIBUTION WIDTH 14.1 % (9.6-15.2)
[2018-09-10 12:56] LABS: ALANINE AMINOTRANSFERASE 12 U/L (12-78); ALBUMIN 3.7 g/dL (3.4-5.0); ANION GAP 22 mmol/L (5-15); CALCIUM 9.3 mg/dL (8.5-10.1); CHLORIDE 90 mmol/L (98-107); CREATININE 1.49 mg/dL (0.55-1.02)
[2018-09-10 12:58] LABS: ALKALINE PHOSPHATASE 158 U/L (45-117); BILIRUBIN,TOTAL 0.4 mg/dL (0.2-1.0); TOTAL PROTEIN 7.8 g/dL (6.4-8.2)
[2018-09-10 13:04] LABS: ACETONE, SERUM Large (80mg/dL) mg/dL (Negative)
[2018-09-10 13:06] LABS: BASOPHILS # (AUTO) 0.04 x10^3/uL (0-0.1); BASOPHILS % (AUTO) 0 % (0-1); EOSINOPHILS # (AUTO) 0.03 x10^3/uL (0-0.4); EOSINOPHILS % (AUTO) 0 % (1-7); LYMPHOCYTES # (AUTO) 1.78 x10^3/uL (1-3.4); LYMPHOCYTES % (AUTO) 21 % (22-44); MD SCAN; MONOCYTES # (AUTO) 0.47 x10^3/uL (0.2-0.8); MONOCYTES % (AUTO) 5 % (2-9); NEUTROPHILS # (AUTO) 6.36 x10^3/uL (1.8-6.8); NEUTROPHILS % (AUTO) 73 % (42-75)
--- NOTE | 2018-09-10 13:08 | NUR ---
DENIES ABILITY TO PRODUCE UA AT THIS TIME
[2018-09-10] MEDS ORDERED: REGULAR INSULIN 62.5 UNITS in SODIUM CHLORIDE 0.9% 249.375 ML IV PRN ×2 (13:17→16:30)
--- NOTE | 2018-09-10 13:17 | NUR ---
I AM ASSUMING CARE OF THIS PATIENT FROM SERVANDO (ELLE). SBAR REPORT WAS EXCHANGED AT THE BEDSIDE.
[2018-09-10] MEDS ORDERED: INSULIN SINGLE DOSE, ER SQ-INSULIN ONE (13:22)
[2018-09-10 13:24] LABS: PH, VENOUS 7.231 pH (7.320-7.420)
--- NOTE | 2018-09-10 13:29 | NUR ---
PT AMBULATED TO THE RESTROOM WITH A STEADY GAIT. URINE SAMPLE PROVIDED, AND WALKED TO THE LAB FOR ANALYSIS.
[2018-09-10] MEDS ORDERED: SODIUM CHLORIDE 0.9% 1,000ML IVBOLUS ONE ×2 (13:30)
[2018-09-10] MEDS ORDERED: INSULIN REGULAR 100 UNITS/ML, 3ML VIAL IVPush ONE (13:30)
[2018-09-10 13:44] LABS: MICROSCOPIC NOT IND
[2018-09-10 13:48] LABS: CULTURE INDICATED? NO
--- NOTE | 2018-09-10 14:21 | NUR ---
verbal sbar report was exchanged w johanna (tiara) on the floor for admission. we will begin to prepare for transport at this time.
[2018-09-10] MEDS ORDERED: ACETAMINOPHEN 325 MG TABLET PO PRN (16:00)
[2018-09-10] MEDS ORDERED: ONDANSETRON 2MG/ML, 2ML IVPush PRN (16:00)
[2018-09-10] MEDS ORDERED: DEXTROSE 4 GM TAB.CHEW PO PRN (16:00)
[2018-09-10] MEDS ORDERED: GLUCAGON 1 MG IM PRN (16:00)
[2018-09-10] MEDS ORDERED: BISACODYL 10 MG SUPP PR PRN (16:00)
[2018-09-10] MEDS ORDERED: POLYETHYLENE GLYCOL 17 GM PACKET PO PRN (16:00)
[2018-09-10] MEDS ORDERED: DOCUSATE 100 MG CAPSULE PO PRN (16:00)
[2018-09-10] MEDS ORDERED: DEXTROSE 50%, 50ML SYRINGE IVPush PRN (16:00)
[2018-09-10 16:37] LABS: ANION GAP 19 mmol/L (5-15); CALCIUM 8.4 mg/dL (8.5-10.1); CHLORIDE 106 mmol/L (98-107); CREATININE 1.52 mg/dL (0.55-1.02)
[2018-09-10] MEDS: SODIUM CHLORIDE 0.9% 1,000 ML IV SCH ×2 (18:52→20:56)
[2018-09-10] MEDS: D5%-0.45% NACL 1,000 ML IV SCH (18:59)
[2018-09-10] MEDS: SODIUM CHLORIDE FLUSH 10ML SYR IVF SCH (20:13)
[2018-09-10] MEDS: ENOXAPARIN 40 MG/0.4 ML SQ SCH (20:13)
[2018-09-10 20:18] LABS: ANION GAP 7 mmol/L (5-15); CALCIUM 8.7 mg/dL (8.5-10.1); CHLORIDE 109 mmol/L (98-107); CREATININE 1.09 mg/dL (0.55-1.02)
[2018-09-10 23:44] LABS: ANION GAP 6 mmol/L (5-15); CALCIUM 8.3 mg/dL (8.5-10.1); CHLORIDE 107 mmol/L (98-107); CREATININE 1.01 mg/dL (0.55-1.02)
[2018-09-11] MEDS: SODIUM CHLORIDE 0.9% 1,000 ML IV SCH (00:03)
[2018-09-11] MEDS: D5%-0.45% NACL 1,000 ML IV SCH (01:40)
[2018-09-11 04:33] LABS: MEAN CORPUSCULAR HEMOGLOBIN 32.7 pg (27.0-34.8); MEAN CORPUSCULAR HGB CONC 33.2 g/dL (32.4-35.8); MEAN CORPUSCULAR VOLUME 98.4 fL (80-100); PLATELET COUNT 330 x10^3/uL (130-400); RED BLOOD COUNT 3.65 x10^6/uL (3.82-5.3); RED CELL DISTRIBUTION WIDTH 14.6 % (9.6-15.2)
[2018-09-11 04:42] LABS: ANION GAP 4 mmol/L (5-15); CHLORIDE 109 mmol/L (98-107); CREATININE 0.95 mg/dL (0.55-1.02)
[2018-09-11 04:55] LABS: BASOPHILS # (AUTO) 0.03 x10^3/uL (0-0.1); BASOPHILS % (AUTO) 1 % (0-1); EOSINOPHILS # (AUTO) 0.06 x10^3/uL (0-0.4); EOSINOPHILS % (AUTO) 1 % (1-7); LYMPHOCYTES # (AUTO) 2.69 x10^3/uL (1-3.4); LYMPHOCYTES % (AUTO) 57 % (22-44); MD SCAN; MONOCYTES # (AUTO) 0.39 x10^3/uL (0.2-0.8); MONOCYTES % (AUTO) 8 % (2-9); NEUTROPHILS # (AUTO) 1.53 x10^3/uL (1.8-6.8); NEUTROPHILS % (AUTO) 33 % (42-75)
[2018-09-11 05:03] LABS: ALANINE AMINOTRANSFERASE 13 U/L (12-78); ALBUMIN 2.7 g/dL (3.4-5.0)
[2018-09-11 05:10] LABS: ALKALINE PHOSPHATASE 103 U/L (45-117); BILIRUBIN,TOTAL 0.3 mg/dL (0.2-1.0); TOTAL PROTEIN 6.1 g/dL (6.4-8.2)
[2018-09-11 05:15] VITALS: BP 100/50
[2018-09-11 08:00] VITALS: BP 103/56
[2018-09-11 08:10] LABS: ANION GAP 8 mmol/L (5-15); CALCIUM 8.1 mg/dL (8.5-10.1); CHLORIDE 108 mmol/L (98-107); CREATININE 0.94 mg/dL (0.55-1.02)
[2018-09-11] MEDS ORDERED: INSULIN GLARGINE 100 UNITS/ML, PEN SQ-INSULIN SCH ×3 (09:00→21:00)
[2018-09-11] MEDS: SODIUM CHLORIDE FLUSH 10ML SYR IVF SCH ×2 (09:24→21:00)
[2018-09-11 12:31] LABS: ANION GAP 7 mmol/L (5-15); CALCIUM 8.3 mg/dL (8.5-10.1); CHLORIDE 108 mmol/L (98-107); CREATININE 0.92 mg/dL (0.55-1.02)
[2018-09-11 14:00] VITALS: BP 97/43
[2018-09-11 16:46] LABS: ANION GAP 4 mmol/L (5-15); CHLORIDE 102 mmol/L (98-107); CREATININE 1.12 mg/dL (0.55-1.02)
[2018-09-11] MEDS ORDERED: INSULIN LISPRO 100 UNITS/ML, PEN SQ-INSULIN PRN (17:00)
[2018-09-11] MEDS: INSULIN LISPRO 100 UNITS/ML, PEN SQ-INSULIN SCH ×2 (17:06→17:07)
[2018-09-11] MEDS ORDERED: SODIUM CHLORIDE 0.9% 1,000 ML IV SCH (18:30)
[2018-09-11] MEDS ORDERED: INSULIN LISPRO 100 UNITS/ML, PEN SQ-INSULIN ONE (18:30)
[2018-09-11 19:10] VITALS: BP 120/77
[2018-09-11] MEDS: ENOXAPARIN 40 MG/0.4 ML SQ SCH (20:00)
[2018-09-11 20:33] LABS: ANION GAP 8 mmol/L (5-15); CALCIUM 8.1 mg/dL (8.5-10.1); CHLORIDE 104 mmol/L (98-107)
[2018-09-11 20:34] LABS: CREATININE 1.08 mg/dL (0.55-1.02)
[2018-09-12 02:31] VITALS: BP 107/72
[2018-09-12 05:08] LABS: BASOPHILS # (AUTO) 0.04 x10^3/uL (0-0.1); BASOPHILS % (AUTO) 1 % (0-1); EOSINOPHILS # (AUTO) 0.06 x10^3/uL (0-0.4); EOSINOPHILS % (AUTO) 1 % (1-7); LYMPHOCYTES # (AUTO) 2.11 x10^3/uL (1-3.4); LYMPHOCYTES % (AUTO) 50 % (22-44); MD NO; MEAN CORPUSCULAR HEMOGLOBIN 32.1 pg (27.0-34.8); MEAN CORPUSCULAR HGB CONC 32.8 g/dL (32.4-35.8); MEAN PLATELET VOLUME 7.9 fL (7.4-10.4); MONOCYTES # (AUTO) 0.34 x10^3/uL (0.2-0.8); MONOCYTES % (AUTO) 8 % (2-9); NEUTROPHILS # (AUTO) 1.67 x10^3/uL (1.8-6.8); NEUTROPHILS % (AUTO) 40 % (42-75); PLATELET COUNT 272 x10^3/uL (130-400); RED CELL DISTRIBUTION WIDTH 14.3 % (9.6-15.2)
[2018-09-12 05:29] LABS: ALANINE AMINOTRANSFERASE 15 U/L (12-78); ALBUMIN 2.5 g/dL (3.4-5.0); ANION GAP 8 mmol/L (5-15); CALCIUM 7.8 mg/dL (8.5-10.1); CHLORIDE 110 mmol/L (98-107)
[2018-09-12 05:31] LABS: ALKALINE PHOSPHATASE 112 U/L (45-117); CREATININE 0.77 mg/dL (0.55-1.02); TOTAL PROTEIN 5.5 g/dL (6.4-8.2)
[2018-09-12 05:32] LABS: BILIRUBIN,TOTAL < 0.1 mg/dL (0.2-1.0)
[2018-09-12 06:53] VITALS: BP 108/73
[2018-09-12] MEDS ORDERED: INSU100V8 SQ (07:31)
[2018-09-12] MEDS ORDERED: MAGNESIUM SULFATE PMX 2GM/50ML 50 ML IV ONE (08:00)
[2018-09-12] MEDS: SODIUM CHLORIDE FLUSH 10ML SYR IVF SCH (08:23)
[2018-09-12] MEDS ORDERED: LISINOPRIL 5 MG TABLET PO SCH (09:00)
[2018-09-12] MEDS ORDERED: MAGNESIUM OXIDE 400 MG TABLET PO SCH (09:00)
[2018-09-12] MEDS ORDERED: INSULIN GLARGINE 100 UNITS/ML, PEN SQ-INSULIN SCH (09:00)
[2018-09-12 12:19] VITALS: BP 113/78
[2018-09-12] MEDS: INSULIN LISPRO 100 UNITS/ML, PEN SQ-INSULIN SCH ×2 (12:23→16:09)
== END 2018-09-12 16:50 | disposition home or self-care (01) | DRG 638 ==
LOC: ED 12:10 → EDIP 14:07 → CCU 15:05 → 3NE 09-11 17:44
PROVIDERS: ADMIT Internal Medicine; ATTEND Internal Medicine
PROC: 02HV33Z Insertion of Infusion Device into Superior Vena Cava, Percutaneous Approach (ICD-10-PCS; principal; 2018-09-10)
PROC: B548ZZA Ultrasonography of Superior Vena Cava, Guidance (ICD-10-PCS; 2018-09-10)
DX: E10.10 Type 1 diabetes mellitus with ketoacidosis without coma (principal); N17.9 Acute kidney failure, unspecified; E10.21 Type 1 diabetes mellitus with diabetic nephropathy; E83.42 Hypomagnesemia; E86.0 Dehydration; E88.09 Other disorders of plasma-protein metabolism, not elsewhere classified; I10 Essential (primary) hypertension; F12.90 Cannabis use, unspecified, uncomplicated; Z66 Do not resuscitate; Z91.19 Patient's noncompliance with other medical treatment and regimen; Z79.4 Long term (current) use of insulin; Z87.891 Personal history of nicotine dependence
CPT/HCPCS: 36415; 36573; 71045; 80048; 80053; 81003; 81025; 82010; 82803; 82962; 83735; 84100; 85025; 87081; 96374; 99291; G0378; J1650; J1815; J2405; C1751; J3475; J7030; J7050

== ENCOUNTER 2018-09-19 09:28 | Inpatient (IN) | payer MEDICAID ==
[~2018-09-19] VITALS: Ht 165.1 cm; Wt 83.0 kg
[2018-09-19] MEDS ORDERED: SODIUM CHLORIDE 0.9% 1,000 ML IV ONE (09:35)
--- NOTE | 2018-09-19 09:36 | NUR ---
MD IS AT THE BEDSIDE FOR ASSESSMENT
--- NOTE | 2018-09-19 09:44 | NUR ---
CXR AT THE BEDSIDE
--- NOTE | 2018-09-19 09:53 | NUR ---
phlebotomy is at the bedside for blood sampling
[2018-09-19] MEDS ORDERED: SODIUM CHLORIDE 0.9% 1,000ML IVBOLUS ONE (10:00)
[2018-09-19] MEDS ORDERED: ONDANSETRON 2MG/ML, 2ML IVPush ONE (10:00)
[2018-09-19] MEDS ORDERED: SODIUM CHLORIDE FLUSH 10ML SYR IVF ONE (10:00)
--- NOTE | 2018-09-19 10:12 | NUR ---
PHLEBOTOMY HAS HAD DIFFICULTIES OBTAINING BLOOD SAMPLE. THIS PT HAS GONE TO [facility] FOR PICC INSERTION. BLOOD SAMPLES TO BE OBTAINED UPON RETURN.
[2018-09-19] MEDS ORDERED: ONDANSETRON 2MG/ML, 2ML ONE (10:14)
[2018-09-19 11:03] LABS: BASOPHILS # (AUTO) 0.06 x10^3/uL (0-0.1); BASOPHILS % (AUTO) 0 % (0-1); EOSINOPHILS # (AUTO) 0.03 x10^3/uL (0-0.4); EOSINOPHILS % (AUTO) 0 % (1-7); LYMPHOCYTES # (AUTO) 2.53 x10^3/uL (1-3.4); LYMPHOCYTES % (AUTO) 15 % (22-44); MD NO; MEAN CORPUSCULAR HEMOGLOBIN 33.2 pg (27.0-34.8); MEAN CORPUSCULAR HGB CONC 31.2 g/dL (32.4-35.8); MEAN CORPUSCULAR VOLUME 106.3 fL (80-100); MEAN PLATELET VOLUME 9.6 fL (7.4-10.4); MONOCYTES # (AUTO) 0.48 x10^3/uL (0.2-0.8); MONOCYTES % (AUTO) 3 % (2-9); NEUTROPHILS # (AUTO) 13.36 x10^3/uL (1.8-6.8); NEUTROPHILS % (AUTO) 81 % (42-75); PLATELET COUNT 445 x10^3/uL (130-400); RED BLOOD COUNT 4.45 x10^6/uL (3.82-5.3); RED CELL DISTRIBUTION WIDTH 14.3 % (9.6-15.2)
[2018-09-19 11:14] LABS: ALANINE AMINOTRANSFERASE 22 U/L (12-78); ALBUMIN 3.6 g/dL (3.4-5.0); ANION GAP 30 mmol/L (5-15); CALCIUM 9.5 mg/dL (8.5-10.1); CHLORIDE 93 mmol/L (98-107); CREATININE 1.71 mg/dL (0.55-1.02)
[2018-09-19 11:15] LABS: MICROSCOPIC NOT IND
[2018-09-19 11:22] LABS: CULTURE INDICATED? NO
[2018-09-19 11:30] LABS: ALKALINE PHOSPHATASE 194 U/L (45-117); BILIRUBIN,TOTAL 0.5 mg/dL (0.2-1.0); TOTAL PROTEIN 8.2 g/dL (6.4-8.2)
[2018-09-19] MEDS ORDERED: REGULAR INSULIN IV PRN (11:30)
[2018-09-19] MEDS ORDERED: SODIUM CHLORIDE 0.9% IV PRN (11:30)
[2018-09-19] MEDS: D5%-0.45NACL+KCL 20MEQ 1,000 ML IV SCH ×3 (11:39→20:13)
[2018-09-19] MEDS ORDERED: PIPERACILLIN/TAZO/PMX 3.375GM 50 ML ONE (11:48)
[2018-09-19] MEDS ORDERED: SODIUM CHLORIDE FLUSH 10ML SYR IVF PRN (12:00)
[2018-09-19] MEDS ORDERED: VANCOMYCIN PER PHARMACY MC ONE (12:00)
[2018-09-19] MEDS ORDERED: VANCOMYCIN PMX 1GM/200ML 200 ML IVPB ONE (12:00)
[2018-09-19] MEDS ORDERED: LABETALOL 5MG/ML, 20ML IVPush PRN (12:00)
[2018-09-19] MEDS ORDERED: PIPERACILLIN/TAZO/PMX 4.5GM 100 ML IVPB ONE (12:00)
[2018-09-19] MEDS ORDERED: POLYETHYLENE GLYCOL 17 GM PACKET PO PRN (12:00)
[2018-09-19] MEDS ORDERED: ACETAMINOPHEN 325 MG TABLET PO PRN (12:00)
[2018-09-19] MEDS ORDERED: BISACODYL 10 MG SUPP PR PRN (12:00)
[2018-09-19] MEDS: REGULAR INSULIN 62.5 UNITS in SODIUM CHLORIDE 0.9% 249.375 ML IV PRN ×2 (12:02→18:39)
--- NOTE | 2018-09-19 12:02 | NUR ---
PHLEBOTOMY IS AT THE BEDSIDE FOR BLOOD CULTURES.
[2018-09-19 12:23] LABS: ACETONE, SERUM Large (80mg/dL) mg/dL (Negative)
--- NOTE | 2018-09-19 12:36 | NUR ---
VERBAL SBAR REPORT WAS EXCHANGED W DONNA (ELLE) ON THE FLOOR FOR ADMISSION. WE WILL BEGIN TO PREPARE FOR TRANSPORT AT THIS TIME.
[2018-09-19] MEDS: ENOXAPARIN 40 MG/0.4 ML SQ SCH (13:17)
[2018-09-19] MEDS: SODIUM CHLORIDE 0.9% 1,000 ML IV SCH ×3 (13:18→21:04)
[2018-09-19 17:10] LABS: ANION GAP 23 mmol/L (5-15); CALCIUM 8.6 mg/dL (8.5-10.1); CHLORIDE 113 mmol/L (98-107); CREATININE 1.67 mg/dL (0.55-1.02)
[2018-09-19 20:57] LABS: ANION GAP 14 mmol/L (5-15); CALCIUM 8.5 mg/dL (8.5-10.1); CHLORIDE 118 mmol/L (98-107); CREATININE 1.53 mg/dL (0.55-1.02)
[2018-09-20] MEDS: ONDANSETRON 2MG/ML, 2ML IVPush PRN ×2 (00:05→16:39)
[2018-09-20 00:21] LABS: ANION GAP 12 mmol/L (5-15); CALCIUM 8.5 mg/dL (8.5-10.1); CHLORIDE 119 mmol/L (98-107); CREATININE 1.51 mg/dL (0.55-1.02)
[2018-09-20] MEDS: SODIUM CHLORIDE 0.9% 1,000 ML IV SCH ×3 (02:39→22:30)
[2018-09-20] MEDS: D5%-0.45NACL+KCL 20MEQ 1,000 ML IV SCH (03:00)
[2018-09-20 04:13] LABS: CHLORIDE 117 mmol/L (98-107)
[2018-09-20 04:26] LABS: ALANINE AMINOTRANSFERASE 17 U/L (12-78); ALBUMIN 2.8 g/dL (3.4-5.0); ANION GAP 14 mmol/L (5-15); CALCIUM 8.2 mg/dL (8.5-10.1); CREATININE 1.51 mg/dL (0.55-1.02)
[2018-09-20 04:28] LABS: BASOPHILS # (AUTO) 0.03 x10^3/uL (0-0.1); BASOPHILS % (AUTO) 0 % (0-1); EOSINOPHILS # (AUTO) 0.01 x10^3/uL (0-0.4); EOSINOPHILS % (AUTO) 0 % (1-7); LYMPHOCYTES # (AUTO) 2.13 x10^3/uL (1-3.4); LYMPHOCYTES % (AUTO) 23 % (22-44); MD NO; MEAN CORPUSCULAR HGB CONC 33.2 g/dL (32.4-35.8); MEAN CORPUSCULAR VOLUME 99.3 fL (80-100); MEAN PLATELET VOLUME 8.1 fL (7.4-10.4); MONOCYTES # (AUTO) 0.59 x10^3/uL (0.2-0.8); MONOCYTES % (AUTO) 6 % (2-9); NEUTROPHILS # (AUTO) 6.41 x10^3/uL (1.8-6.8); NEUTROPHILS % (AUTO) 70 % (42-75); PLATELET COUNT 342 x10^3/uL (130-400); RED CELL DISTRIBUTION WIDTH 14.3 % (9.6-15.2)
[2018-09-20 04:29] LABS: ALKALINE PHOSPHATASE 119 U/L (45-117); BILIRUBIN,TOTAL 0.4 mg/dL (0.2-1.0); TOTAL PROTEIN 6.6 g/dL (6.4-8.2)
[2018-09-20] MEDS: SENNA/DOCUSATE TABLET PO SCH (08:21)
[2018-09-20 08:24] LABS: ANION GAP 10 mmol/L (5-15); CALCIUM 8.1 mg/dL (8.5-10.1); CHLORIDE 115 mmol/L (98-107); CREATININE 1.31 mg/dL (0.55-1.02)
[2018-09-20] MEDS ORDERED: GLUCAGON 1 MG IM PRN (09:30)
[2018-09-20] MEDS ORDERED: DEXTROSE 50%, 50ML SYRINGE IVPush PRN (09:30)
[2018-09-20] MEDS ORDERED: DEXTROSE 4 GM TAB.CHEW PO PRN (09:30)
[2018-09-20] MEDS: INSULIN GLARGINE 100 UNITS/ML, PEN SQ-INSULIN SCH ×2 (09:59→21:06)
[2018-09-20] MEDS ORDERED: INSULIN LISPRO 100 UNITS/ML, PEN SQ-INSULIN SCH (11:00)
[2018-09-20] MEDS: ENOXAPARIN 40 MG/0.4 ML SQ SCH (12:39)
[2018-09-20] MEDS: INSULIN LISPRO 100 UNITS/ML, PEN SQ-INSULIN SCH (16:39)
[2018-09-20 20:00] VITALS: BP 102/56
[2018-09-21 02:00] VITALS: BP 116/76
[2018-09-21 04:59] LABS: ALANINE AMINOTRANSFERASE 14 U/L (12-78); ALBUMIN 2.5 g/dL (3.4-5.0); ANION GAP 8 mmol/L (5-15); CALCIUM 8.4 mg/dL (8.5-10.1); CHLORIDE 110 mmol/L (98-107)
[2018-09-21 05:02] LABS: ALKALINE PHOSPHATASE 100 U/L (45-117); BILIRUBIN,TOTAL 0.4 mg/dL (0.2-1.0); CREATININE 1.13 mg/dL (0.55-1.02); TOTAL PROTEIN 5.6 g/dL (6.4-8.2)
[2018-09-21 05:21] LABS: BASOPHILS # (AUTO) 0.03 x10^3/uL (0-0.1); BASOPHILS % (AUTO) 1 % (0-1); EOSINOPHILS # (AUTO) 0.02 x10^3/uL (0-0.4); EOSINOPHILS % (AUTO) 1 % (1-7); LYMPHOCYTES # (AUTO) 2.02 x10^3/uL (1-3.4); LYMPHOCYTES % (AUTO) 40 % (22-44); MD NO; MEAN CORPUSCULAR HEMOGLOBIN 32.5 pg (27.0-34.8); MEAN CORPUSCULAR HGB CONC 33.1 g/dL (32.4-35.8); MEAN CORPUSCULAR VOLUME 98.1 fL (80-100); MEAN PLATELET VOLUME 7.7 fL (7.4-10.4); MONOCYTES # (AUTO) 0.33 x10^3/uL (0.2-0.8); MONOCYTES % (AUTO) 7 % (2-9); NEUTROPHILS # (AUTO) 2.62 x10^3/uL (1.8-6.8); NEUTROPHILS % (AUTO) 52 % (42-75); PLATELET COUNT 233 x10^3/uL (130-400); RED BLOOD COUNT 3.38 x10^6/uL (3.82-5.3); RED CELL DISTRIBUTION WIDTH 14.3 % (9.6-15.2)
[2018-09-21 07:26] VITALS: BP 114/79
[2018-09-21] MEDS: ONDANSETRON 2MG/ML, 2ML IVPush PRN (08:13)
[2018-09-21] MEDS: SODIUM CHLORIDE 0.9% 1,000 ML IV SCH ×2 (08:13→17:22)
[2018-09-21] MEDS: INSULIN LISPRO 100 UNITS/ML, PEN SQ-INSULIN SCH ×4 (08:14→20:04)
[2018-09-21] MEDS: INSULIN GLARGINE 100 UNITS/ML, PEN SQ-INSULIN SCH ×2 (08:14→20:04)
[2018-09-21] MEDS: SENNA/DOCUSATE TABLET PO SCH (08:15)
[2018-09-21] MEDS: ENOXAPARIN 40 MG/0.4 ML SQ SCH (11:41)
[2018-09-21 12:21] VITALS: BP 117/78
[2018-09-21 18:42] VITALS: BP 107/73
[2018-09-22 00:07] VITALS: BP 119/81
[2018-09-22] MEDS: SODIUM CHLORIDE 0.9% 1,000 ML IV SCH (03:57)
[2018-09-22 04:30] LABS: MEAN CORPUSCULAR HEMOGLOBIN 33.3 pg (27.0-34.8); MEAN CORPUSCULAR HGB CONC 33.6 g/dL (32.4-35.8); MEAN CORPUSCULAR VOLUME 99.3 fL (80-100); PLATELET COUNT 217 x10^3/uL (130-400); RED BLOOD COUNT 3.33 x10^6/uL (3.82-5.3); RED CELL DISTRIBUTION WIDTH 14.1 % (9.6-15.2)
[2018-09-22 04:37] LABS: ALANINE AMINOTRANSFERASE 15 U/L (12-78); ALBUMIN 2.4 g/dL (3.4-5.0); ANION GAP 9 mmol/L (5-15); CALCIUM 7.9 mg/dL (8.5-10.1); CHLORIDE 113 mmol/L (98-107); CREATININE 0.88 mg/dL (0.55-1.02)
[2018-09-22 04:40] LABS: ALKALINE PHOSPHATASE 102 U/L (45-117); BILIRUBIN,TOTAL 0.1 mg/dL (0.2-1.0); TOTAL PROTEIN 5.6 g/dL (6.4-8.2)
[2018-09-22 05:16] LABS: BASOPHILS # (AUTO) 0.02 x10^3/uL (0-0.1); BASOPHILS % (AUTO) 0 % (0-1); EOSINOPHILS # (AUTO) 0.03 x10^3/uL (0-0.4); EOSINOPHILS % (AUTO) 1 % (1-7); LYMPHOCYTES # (AUTO) 2.62 x10^3/uL (1-3.4); LYMPHOCYTES % (AUTO) 56 % (22-44); MD SCAN; MONOCYTES # (AUTO) 0.33 x10^3/uL (0.2-0.8); MONOCYTES % (AUTO) 7 % (2-9); NEUTROPHILS # (AUTO) 1.66 x10^3/uL (1.8-6.8); NEUTROPHILS % (AUTO) 36 % (42-75)
[2018-09-22 07:30] VITALS: BP 129/91
[2018-09-22] MEDS: SENNA/DOCUSATE TABLET PO SCH (07:54)
[2018-09-22] MEDS: INSULIN LISPRO 100 UNITS/ML, PEN SQ-INSULIN SCH ×2 (07:55→12:24)
[2018-09-22] MEDS: INSULIN GLARGINE 100 UNITS/ML, PEN SQ-INSULIN SCH (07:55)
[2018-09-22] MEDS: ENOXAPARIN 40 MG/0.4 ML SQ SCH (11:58)
[2018-09-22] MEDS ORDERED: MAGN400T50 PO (15:41)
== END 2018-09-22 16:56 | disposition home or self-care (01) | DRG 637 ==
LOC: ED 09:54 → EDIP 11:35 → CCU 12:59 → 3NE 09-20 16:55 → CCU 09-20 16:58 → 3NE 09-21 06:56 → DCLOUNGE 09-22 16:43
PROVIDERS: ADMIT Internal Medicine; ATTEND Internal Medicine
PROC: 02HV33Z Insertion of Infusion Device into Superior Vena Cava, Percutaneous Approach (ICD-10-PCS; principal; 2018-09-19)
DX: E10.10 Type 1 diabetes mellitus with ketoacidosis without coma (principal); N17.0 Acute kidney failure with tubular necrosis; R65.10 Systemic inflammatory response syndrome (SIRS) of non-infectious origin without acute organ dysfunction; D75.89 Other specified diseases of blood and blood-forming organs; E55.9 Vitamin D deficiency, unspecified; E78.5 Hyperlipidemia, unspecified; E86.0 Dehydration; E87.5 Hyperkalemia; I10 Essential (primary) hypertension; Z79.4 Long term (current) use of insulin; Z87.891 Personal history of nicotine dependence; Z91.19 Patient's noncompliance with other medical treatment and regimen
CPT/HCPCS: 36415; 36573; 71045; 80048; 80053; 81003; 82010; 82800; 82962; 83605; 83690; 83735; 84100; 84703; 85025; 87040; 87081; 93005; 96374; 99291; G0378; J1650; J1815; J2405; J3370; C1751; J3480; J7030; J7050

== ENCOUNTER 2018-09-24 20:57 | Inpatient (IN) | payer MEDICAID ==
[~2018-09-24] VITALS: Ht 152.4 cm; Wt 77.3 kg
[2018-09-24] MEDS ORDERED: ONDANSETRON 2MG/ML, 2ML IVPush ONE (21:30)
[2018-09-24] MEDS ORDERED: SODIUM CHLORIDE 0.9% 1,000ML IVBOLUS ONE ×2 (21:30→22:00)
[2018-09-24] MEDS ORDERED: PLEASE ENTER HEIGHT AND WEIGHT MC SCH (21:30)
[2018-09-24 21:32] LABS: PH, VENOUS 7.288 pH (7.320-7.420)
[2018-09-24 21:38] LABS: MEAN CORPUSCULAR HEMOGLOBIN 33.2 pg (27.0-34.8); MEAN CORPUSCULAR HGB CONC 32.9 g/dL (32.4-35.8); MEAN CORPUSCULAR VOLUME 100.9 fL (80-100); MEAN PLATELET VOLUME 8.6 fL (7.4-10.4); PLATELET COUNT 356 x10^3/uL (130-400); RED CELL DISTRIBUTION WIDTH 13.6 % (9.6-15.2)
--- NOTE | 2018-09-24 21:40 | NUR ---
PT WITH IV STARTED WITH US AND IVF RUNNING ORDERED.
[2018-09-24 21:46] LABS: ALANINE AMINOTRANSFERASE 18 U/L (12-78); ALBUMIN 3.6 g/dL (3.4-5.0); ANION GAP 23 mmol/L (5-15); CALCIUM 9.6 mg/dL (8.5-10.1); CHLORIDE 98 mmol/L (98-107); CREATININE 1.42 mg/dL (0.55-1.02)
[2018-09-24 21:48] LABS: ALKALINE PHOSPHATASE 139 U/L (45-117); BILIRUBIN,TOTAL 0.6 mg/dL (0.2-1.0); TOTAL PROTEIN 7.7 g/dL (6.4-8.2)
[2018-09-24 22:05] LABS: ACETONE, SERUM Large (80mg/dL) mg/dL (Negative)
[2018-09-24 22:12] LABS: MD YES
[2018-09-24 22:16] LABS: LYMPH#(MANUAL) 2.65 x10^3/uL (1-3.4); LYMPHS% (MANUAL) 49 % (22-44); MONOS#(MANUAL) 0.27 x10^3/uL (0.3-2.7); MONOS% (MANUAL) 5 % (2-9); NRBC % (MANUAL) 1 % (0-1); SEG#(MANUAL) 2.48 x10^3/uL (1.8-6.8); SEGS% (MANUAL) 46 % (42-75)
[2018-09-24 22:17] LABS: ANISOCYTOSIS 1+
[2018-09-24 22:18] LABS: <PLATELET ESTIMATE> ADEQUATE
[2018-09-24 22:19] LABS: LARGE PLATELETS 1+
[2018-09-24] MEDS ORDERED: ONDANSETRON 2MG/ML, 2ML ONE (22:20)
[2018-09-24 22:23] LABS: MICROSCOPIC NOT IND
[2018-09-24 22:25] LABS: CULTURE INDICATED? NO
[2018-09-24] MEDS: REGULAR INSULIN 62.5 UNITS in SODIUM CHLORIDE 0.9% 249.375 ML IV PRN ×2 (22:39→23:48)
--- NOTE | 2018-09-24 22:44 | NUR ---
PT WITH INSULIN DRIP STARTED PER ORDERS. PT IN NO DISTRESS AND VSS.
[2018-09-24] MEDS ORDERED: REGULAR INSULIN 62.5 UNITS in SODIUM CHLORIDE 0.9% 249.375 ML IV PRN (22:59)
[2018-09-24] MEDS ORDERED: ONDANSETRON 2MG/ML, 2ML IVPush PRN (23:00)
--- NOTE | 2018-09-24 23:41 | NUR ---
FSBS 418 AND PT WITH ICU BED READY.
[2018-09-24] MEDS: SODIUM CHLORIDE 0.9% 1,000 ML IV SCH (23:45)
--- NOTE | 2018-09-24 23:52 | NUR ---
REPORT CALLED TO CCU AND PT READY FOR TRANSPORT TO CCU.
[2018-09-25 01:32] LABS: ANION GAP 16 mmol/L (5-15); CALCIUM 8.9 mg/dL (8.5-10.1); CHLORIDE 111 mmol/L (98-107); CREATININE 1.48 mg/dL (0.55-1.02)
[2018-09-25] MEDS: D5%-0.45% NACL 1,000 ML IV PRN ×2 (02:05→06:20)
[2018-09-25 03:55] VITALS: BP 123/83
[2018-09-25 04:00] VITALS: BP 101/41
[2018-09-25] MEDS: SODIUM CHLORIDE 0.9% 1,000 ML IV SCH ×4 (05:40→23:52)
[2018-09-25 07:04] LABS: MEAN CORPUSCULAR HEMOGLOBIN 33.3 pg (27.0-34.8); MEAN CORPUSCULAR HGB CONC 33.3 g/dL (32.4-35.8); MEAN CORPUSCULAR VOLUME 99.9 fL (80-100); MEAN PLATELET VOLUME 7.8 fL (7.4-10.4); PLATELET COUNT 290 x10^3/uL (130-400); RED BLOOD COUNT 3.75 x10^6/uL (3.82-5.3)
[2018-09-25 07:15] LABS: ANION GAP 9 mmol/L (5-15); CALCIUM 8.1 mg/dL (8.5-10.1); CHLORIDE 110 mmol/L (98-107)
[2018-09-25 07:17] LABS: CREATININE 1.13 mg/dL (0.55-1.02)
[2018-09-25 07:43] LABS: BASOPHILS # (AUTO) 0.02 x10^3/uL (0-0.1); BASOPHILS % (AUTO) 0 % (0-1); EOSINOPHILS # (AUTO) 0.05 x10^3/uL (0-0.4); EOSINOPHILS % (AUTO) 1 % (1-7); LYMPHOCYTES # (AUTO) 2.42 x10^3/uL (1-3.4); LYMPHOCYTES % (AUTO) 49 % (22-44); MD SCAN; MONOCYTES # (AUTO) 0.37 x10^3/uL (0.2-0.8); MONOCYTES % (AUTO) 8 % (2-9); NEUTROPHILS # (AUTO) 2.06 x10^3/uL (1.8-6.8); NEUTROPHILS % (AUTO) 42 % (42-75)
[2018-09-25] MEDS ORDERED: INSULIN GLARGINE 100 UNITS/ML, PEN SQ-INSULIN SCH (09:00)
[2018-09-25] MEDS ORDERED: DEXTROSE 4 GM TAB.CHEW PO PRN (09:00)
[2018-09-25] MEDS ORDERED: GLUCAGON 1 MG IM PRN (09:00)
[2018-09-25] MEDS ORDERED: ACETAMINOPHEN 325 MG TABLET PO PRN (09:00)
[2018-09-25] MEDS ORDERED: DEXTROSE 50%, 50ML SYRINGE IVPush PRN (09:00)
[2018-09-25] MEDS: SODIUM CHLORIDE FLUSH 10ML SYR IVF SCH ×2 (09:03→17:24)
[2018-09-25] MEDS: ENOXAPARIN 40 MG/0.4 ML SQ SCH (09:03)
[2018-09-25] MEDS: INSULIN LISPRO 100 UNITS/ML, PEN SQ-INSULIN SCH ×3 (11:09→20:33)
[2018-09-25 13:16] VITALS: BP 108/72
[2018-09-25] MEDS ORDERED: INSULIN LISPRO 100 UNITS/ML, PEN SQ-INSULIN ONE (17:00)
[2018-09-25 19:06] VITALS: BP 113/80
[2018-09-25] MEDS: INSULIN GLARGINE 100 UNITS/ML, PEN SQ-INSULIN SCH (20:34)
[2018-09-26 02:16] VITALS: BP 95/64
[2018-09-26 05:07] LABS: BASOPHILS # (AUTO) 0.02 x10^3/uL (0-0.1); BASOPHILS % (AUTO) 1 % (0-1); EOSINOPHILS # (AUTO) 0.05 x10^3/uL (0-0.4); EOSINOPHILS % (AUTO) 1 % (1-7); LYMPHOCYTES # (AUTO) 1.86 x10^3/uL (1-3.4); LYMPHOCYTES % (AUTO) 41 % (22-44); MD NO; MEAN CORPUSCULAR HEMOGLOBIN 32.4 pg (27.0-34.8); MEAN CORPUSCULAR HGB CONC 32.7 g/dL (32.4-35.8); MEAN CORPUSCULAR VOLUME 99.1 fL (80-100); MEAN PLATELET VOLUME 7.9 fL (7.4-10.4); MONOCYTES # (AUTO) 0.31 x10^3/uL (0.2-0.8); MONOCYTES % (AUTO) 7 % (2-9); NEUTROPHILS # (AUTO) 2.27 x10^3/uL (1.8-6.8); NEUTROPHILS % (AUTO) 50 % (42-75); PLATELET COUNT 230 x10^3/uL (130-400); RED BLOOD COUNT 3.33 x10^6/uL (3.82-5.3)
[2018-09-26 05:32] LABS: CHLORIDE 107 mmol/L (98-107)
[2018-09-26 05:36] LABS: ALANINE AMINOTRANSFERASE 15 U/L (12-78); ALBUMIN 2.4 g/dL (3.4-5.0); ALKALINE PHOSPHATASE 113 U/L (45-117); ANION GAP 8 mmol/L (5-15); BILIRUBIN,TOTAL 0.2 mg/dL (0.2-1.0); CALCIUM 7.5 mg/dL (8.5-10.1); CREATININE 0.93 mg/dL (0.55-1.02); TOTAL PROTEIN 5.4 g/dL (6.4-8.2)
[2018-09-26] MEDS: SODIUM CHLORIDE 0.9% 1,000 ML IV SCH (06:21)
[2018-09-26 07:02] VITALS: BP 113/76
[2018-09-26] MEDS ORDERED: INSULIN LISPRO 100 UNITS/ML, PEN SQ-INSULIN ONE (08:30)
[2018-09-26] MEDS: ENOXAPARIN 40 MG/0.4 ML SQ SCH (08:43)
[2018-09-26] MEDS: INSULIN LISPRO 100 UNITS/ML, PEN SQ-INSULIN SCH ×4 (08:45→21:28)
[2018-09-26] MEDS: SODIUM CHLORIDE FLUSH 10ML SYR IVF SCH ×2 (08:47→21:28)
[2018-09-26] MEDS ORDERED: MAGNESIUM SULFATE PMX 2GM/50ML 50 ML IV ONE (10:00)
[2018-09-26] MEDS ORDERED: SODIUM CHLORIDE 0.9% 1,000 ML IV SCH (10:00)
[2018-09-26] MEDS: INSULIN GLARGINE 100 UNITS/ML, PEN SQ-INSULIN SCH ×2 (13:34→21:27)
[2018-09-26 15:29] VITALS: BP 120/84
[2018-09-26 20:44] VITALS: BP 111/61
[2018-09-27 01:46] VITALS: BP 110/73
[2018-09-27 05:26] LABS: ANION GAP 9 mmol/L (5-15); CALCIUM 8.3 mg/dL (8.5-10.1); CHLORIDE 102 mmol/L (98-107); CREATININE 1.01 mg/dL (0.55-1.02)
[2018-09-27] MEDS: INSULIN LISPRO 100 UNITS/ML, PEN SQ-INSULIN SCH ×2 (06:16→07:52)
[2018-09-27 06:40] LABS: MEAN CORPUSCULAR HEMOGLOBIN 33.4 pg (27.0-34.8); MEAN CORPUSCULAR HGB CONC 33.1 g/dL (32.4-35.8); MEAN CORPUSCULAR VOLUME 100.9 fL (80-100); MEAN PLATELET VOLUME 8.2 fL (7.4-10.4); PLATELET COUNT 244 x10^3/uL (130-400); RED BLOOD COUNT 3.85 x10^6/uL (3.82-5.3); RED CELL DISTRIBUTION WIDTH 13.8 % (9.6-15.2)
[2018-09-27 07:10] LABS: BASOPHILS # (AUTO) 0.03 x10^3/uL (0-0.1); BASOPHILS % (AUTO) 1 % (0-1); EOSINOPHILS # (AUTO) 0.07 x10^3/uL (0-0.4); EOSINOPHILS % (AUTO) 1 % (1-7); LYMPHOCYTES # (AUTO) 1.72 x10^3/uL (1-3.4); LYMPHOCYTES % (AUTO) 31 % (22-44); MD SCAN; MONOCYTES # (AUTO) 0.46 x10^3/uL (0.2-0.8); MONOCYTES % (AUTO) 8 % (2-9); NEUTROPHILS # (AUTO) 3.31 x10^3/uL (1.8-6.8); NEUTROPHILS % (AUTO) 59 % (42-75)
[2018-09-27] MEDS: SODIUM CHLORIDE FLUSH 10ML SYR IVF SCH (07:52)
[2018-09-27] MEDS: INSULIN GLARGINE 100 UNITS/ML, PEN SQ-INSULIN SCH (07:52)
[2018-09-27] MEDS: ENOXAPARIN 40 MG/0.4 ML SQ SCH (07:52)
[2018-09-27] MEDS ORDERED: MAGNESIUM OXIDE 400 MG TABLET PO SCH (09:00)
== END 2018-09-27 10:47 | disposition home or self-care (01) | DRG 637 ==
LOC: ED 21:54 → EDIP 22:48 → CCU 09-25 00:06 → 3NW 09-25 13:30
PROVIDERS: ADMIT Internal Medicine; ATTEND Internal Medicine
DX: E10.10 Type 1 diabetes mellitus with ketoacidosis without coma (principal); N17.0 Acute kidney failure with tubular necrosis; R65.10 Systemic inflammatory response syndrome (SIRS) of non-infectious origin without acute organ dysfunction; D75.89 Other specified diseases of blood and blood-forming organs; E55.9 Vitamin D deficiency, unspecified; E78.5 Hyperlipidemia, unspecified; E87.5 Hyperkalemia; I10 Essential (primary) hypertension; Z87.891 Personal history of nicotine dependence; Z79.4 Long term (current) use of insulin; Z91.19 Patient's noncompliance with other medical treatment and regimen; Z91.040 Latex allergy status; Z91.018 Allergy to other foods
CPT/HCPCS: 36415; 71045; 78264; 80048; 80053; 81003; 82010; 82803; 82962; 83735; 84100; 85025; 87081; 93005; 96361; 96365; 96375; G0378; J1650; J1815; J2405; A9541; J3475; J7030; J7050

== ENCOUNTER 2018-09-30 15:56 | Inpatient (IN) | payer MEDICAID ==
[~2018-09-30] VITALS: Ht 165.1 cm; Wt 77.9 kg
[2018-09-30] MEDS ORDERED: SODIUM CHLORIDE 0.9% 1,000 ML IV ONE (16:15)
--- NOTE | 2018-09-30 16:29 | NUR ---
PATIENT BIB [facility] FOR HIGH BLOOD SURGAR READ >600 AT HOME, SELF ADMINISTRATION OF HUMALOG (17 UNITS) PER PATIENT 3 HOURS AGO, BS-213 UPON ARRIVAL PER EMS. PIPING SUPERVISOR ON PATIENT, NADN, FRIEND AT BEDSIDE, CALL LIGHT WITHIN REACH, WARM BLANKET PROVIDED.
[2018-09-30] MEDS ORDERED: PLEASE ENTER HEIGHT AND WEIGHT MC SCH (16:30)
[2018-09-30] MEDS ORDERED: SODIUM CHLORIDE FLUSH 10ML SYR IVF ONE (16:30)
[2018-09-30] MEDS ORDERED: SODIUM CHLORIDE 0.9% 1,000ML IVBOLUS ONE ×3 (16:30→18:00)
--- NOTE | 2018-09-30 16:30 | NUR ---
PATIENT ALSO REPORTS SYNCOPAL EPISODE TODAY WITH LOC, PATIENT REPORTS HITTING HEAD, A+OX4 AT THIS TIME.
--- NOTE | 2018-09-30 16:46 | NUR ---
PATIENT TRANSFERRED TO ROOM 13 AT THIS TIME, DUE TO MONITORS NOT WORKING IN OTHER ROOM. BP 76/36 AT THIS TIME, AWARE.
--- NOTE | 2018-09-30 17:16 | NUR ---
BP 76/36, MD AWARE, IV ESTABLISHED, 22 LT WRIST, IVF X 2 ADMINISTERED AT THIS TIME, INSPECTOR MACHINE PARTS ON PATIENT, HR 103, FAMILY AT BEDSIDE, FRANTZ, WILL CONTINUE TO MONITOR BP.
--- NOTE | 2018-09-30 17:23 | NUR ---
ICE PACK PROVIDED TO HEAD PER PATIENT REQUEST. A+OX4.
[2018-09-30 17:27] LABS: BASOPHILS # (AUTO) 0.03 x10^3/uL (0-0.1); BASOPHILS % (AUTO) 0 % (0-1); EOSINOPHILS # (AUTO) 0.02 x10^3/uL (0-0.4); EOSINOPHILS % (AUTO) 0 % (1-7); LYMPHOCYTES # (AUTO) 1.87 x10^3/uL (1-3.4); LYMPHOCYTES % (AUTO) 23 % (22-44); MD NO; MEAN CORPUSCULAR HEMOGLOBIN 33.1 pg (27.0-34.8); MEAN CORPUSCULAR VOLUME 100.1 fL (80-100); MEAN PLATELET VOLUME 8.3 fL (7.4-10.4); MONOCYTES # (AUTO) 0.73 x10^3/uL (0.2-0.8); MONOCYTES % (AUTO) 9 % (2-9); NEUTROPHILS # (AUTO) 5.36 x10^3/uL (1.8-6.8); NEUTROPHILS % (AUTO) 67 % (42-75); PLATELET COUNT 397 x10^3/uL (130-400); RED BLOOD COUNT 4.66 x10^6/uL (3.82-5.3); RED CELL DISTRIBUTION WIDTH 14.1 % (9.6-15.2)
[2018-09-30 17:32] LABS: ANION GAP 15 mmol/L (5-15); CALCIUM 9.7 mg/dL (8.5-10.1); CHLORIDE 106 mmol/L (98-107); CREATININE 1.85 mg/dL (0.55-1.02)
--- NOTE | 2018-09-30 17:32 | NUR ---
ORTHOS COMPLETED BY EMT, FSBS-212 AT THIS TIME.
[2018-09-30] MEDS ORDERED: ONDANSETRON 2MG/ML, 2ML ONE (17:40)
[2018-09-30] MEDS ORDERED: ACETAMINOPHEN 500 MG TABLET ONE (17:40)
--- NOTE | 2018-09-30 17:46 | NUR ---
PATIENT NAUSEOUS AND ASKING FOR PAIN MEDICATIONS, MD AWARE, NEW ORDERS, MEDICATIONS ADMINISTERED PER MD ORDER, PATIENT RESTING QUIETLY IN [facility] WITH ICE PACK ON HEAD WITH FAMILY AT BEDSIDE, FRANTZ. AWAITING FURTHER ORDERS, PATIENT UNABLE TO URINATE AT THIS TIME FOR UA.
[2018-09-30] MEDS ORDERED: ACETAMINOPHEN 500 MG TABLET PO ONE (18:00)
[2018-09-30] MEDS ORDERED: ONDANSETRON 2MG/ML, 2ML IVPush ONE (18:00)
[2018-09-30 18:11] LABS: PH, VENOUS 7.323 pH (7.320-7.420)
--- NOTE | 2018-09-30 18:23 | NUR ---
REPORT TO ELLE GOLDBERG.
[2018-09-30] MEDS ORDERED: ONDANSETRON ODT 4 MG PO PRN (18:30)
[2018-09-30] MEDS ORDERED: ONDANSETRON 4 MG TABLET PO PRN (18:30)
[2018-09-30] MEDS ORDERED: BISACODYL 10 MG SUPP PR PRN (18:30)
[2018-09-30] MEDS ORDERED: ACETAMINOPHEN 325 MG TABLET PO PRN (18:30)
[2018-09-30] MEDS ORDERED: POLYETHYLENE GLYCOL 17 GM PACKET PO PRN (18:30)
[2018-09-30 18:37] LABS: ACETONE, SERUM Large (80mg/dL) mg/dL (Negative)
[2018-09-30 18:57] LABS: HEMOGLOBIN A1C 12.1 % (4.2-6.3)
[2018-09-30 19:45] VITALS: BP_SYST 93; BP_SYST 99; BP_DIAS 63; BP_DIAS 70
[2018-09-30] MEDS: SODIUM CHLORIDE 0.9% 1,000 ML IV SCH (20:18)
[2018-09-30] MEDS: INSULIN GLARGINE 100 UNITS/ML, PEN SQ-INSULIN SCH (20:46)
[2018-09-30] MEDS: INSULIN LISPRO 100 UNITS/ML, PEN SQ-INSULIN SCH (20:47)
[2018-09-30] MEDS ORDERED: INSULIN LISPRO 100 UNITS/ML, PEN SQ-INSULIN SCH (21:00)
[2018-10-01 01:07] VITALS: BP_SYST 66; BP_SYST 93; BP_SYST 96; BP_DIAS 49; BP_DIAS 61; BP_DIAS 62
[2018-10-01] MEDS: SODIUM CHLORIDE 0.9% 1,000 ML IV SCH ×2 (01:42→07:45)
[2018-10-01 05:54] LABS: BASOPHILS # (AUTO) 0.04 x10^3/uL (0-0.1); BASOPHILS % (AUTO) 1 % (0-1); EOSINOPHILS # (AUTO) 0.08 x10^3/uL (0-0.4); EOSINOPHILS % (AUTO) 1 % (1-7); LYMPHOCYTES # (AUTO) 2.45 x10^3/uL (1-3.4); LYMPHOCYTES % (AUTO) 46 % (22-44); MD NO; MEAN CORPUSCULAR HEMOGLOBIN 33.4 pg (27.0-34.8); MEAN CORPUSCULAR HGB CONC 33.5 g/dL (32.4-35.8); MEAN CORPUSCULAR VOLUME 99.6 fL (80-100); MEAN PLATELET VOLUME 7.9 fL (7.4-10.4); MONOCYTES # (AUTO) 0.49 x10^3/uL (0.2-0.8); MONOCYTES % (AUTO) 9 % (2-9); NEUTROPHILS # (AUTO) 2.29 x10^3/uL (1.8-6.8); NEUTROPHILS % (AUTO) 43 % (42-75); PLATELET COUNT 309 x10^3/uL (130-400); RED BLOOD COUNT 3.67 x10^6/uL (3.82-5.3); RED CELL DISTRIBUTION WIDTH 14.4 % (9.6-15.2)
[2018-10-01 06:02] LABS: ALANINE AMINOTRANSFERASE 18 U/L (12-78); ALBUMIN 2.9 g/dL (3.4-5.0); ANION GAP 10 mmol/L (5-15); CALCIUM 8.1 mg/dL (8.5-10.1); CHLORIDE 104 mmol/L (98-107); CREATININE 1.14 mg/dL (0.55-1.02)
[2018-10-01 06:04] LABS: ALKALINE PHOSPHATASE 122 U/L (45-117); BILIRUBIN,TOTAL 0.4 mg/dL (0.2-1.0); TOTAL PROTEIN 6.4 g/dL (6.4-8.2)
[2018-10-01 08:05] VITALS: BP_SYST 100; BP_SYST 102; BP_SYST 97; BP_DIAS 59; BP_DIAS 62; BP_DIAS 68
[2018-10-01] MEDS: INSULIN LISPRO 100 UNITS/ML, PEN SQ-INSULIN SCH ×2 (08:21→11:12)
[2018-10-01] MEDS: INSULIN GLARGINE 100 UNITS/ML, PEN SQ-INSULIN SCH (08:21)
[2018-10-01] MEDS ORDERED: SENNA/DOCUSATE TABLET PO SCH (09:00)
[2018-10-01] MEDS ORDERED: MAGNESIUM OXIDE 400 MG TABLET PO SCH (09:00)
== END 2018-10-01 13:06 | disposition home or self-care (01) | DRG 637 ==
LOC: ED 16:48 → EDIP 17:57 → 4WST 18:48
PROVIDERS: ADMIT Internal Medicine; ATTEND Internal Medicine
DX: E10.10 Type 1 diabetes mellitus with ketoacidosis without coma (principal); N17.0 Acute kidney failure with tubular necrosis; R65.10 Systemic inflammatory response syndrome (SIRS) of non-infectious origin without acute organ dysfunction; D75.89 Other specified diseases of blood and blood-forming organs; E86.0 Dehydration; E87.5 Hyperkalemia; E86.1 Hypovolemia; I10 Essential (primary) hypertension; I95.1 Orthostatic hypotension; Z87.891 Personal history of nicotine dependence; Z79.4 Long term (current) use of insulin; Z91.14 Patient's other noncompliance with medication regimen; Z91.040 Latex allergy status; Z91.018 Allergy to other foods
CPT/HCPCS: 36415; 80048; 80053; 82010; 82607; 82803; 82962; 83036; 84703; 85025; 93005; 96374; 99285; G0378; J2405; J1815; J7030

== ENCOUNTER 2018-10-04 17:47 | Inpatient (IN) | payer MEDICAID ==
[~2018-10-04] VITALS: Ht 165.1 cm; Wt 81.5 kg
[2018-10-04 18:24] LABS: HCG UR SG 1.037 (1.003-1.030); MICROSCOPIC NOT IND
[2018-10-04 18:26] LABS: CULTURE INDICATED? NO
[2018-10-04 18:29] LABS: FIO2 ROOM AIR %; PH, VENOUS 7.298 pH (7.320-7.420)
[2018-10-04] MEDS ORDERED: ACETAMINOPHEN 325 MG TABLET PO ONE (18:30)
[2018-10-04] MEDS ORDERED: ONDANSETRON 2MG/ML, 2ML IVPush ONE (18:30)
[2018-10-04] MEDS ORDERED: SODIUM CHLORIDE 0.9% 1,000ML IVBOLUS ONE (18:30)
[2018-10-04 18:36] LABS: ACETONE, SERUM Moderate(40mg/dL) mg/dL (Negative)
[2018-10-04 18:40] LABS: BASOPHILS # (AUTO) 0.06 x10^3/uL (0-0.1); BASOPHILS % (AUTO) 1 % (0-1); EOSINOPHILS # (AUTO) 0.03 x10^3/uL (0-0.4); EOSINOPHILS % (AUTO) 1 % (1-7); LYMPHOCYTES # (AUTO) 1.94 x10^3/uL (1-3.4); LYMPHOCYTES % (AUTO) 39 % (22-44); MD NO; MEAN CORPUSCULAR HEMOGLOBIN 33.4 pg (27.0-34.8); MEAN CORPUSCULAR HGB CONC 32.7 g/dL (32.4-35.8); MEAN CORPUSCULAR VOLUME 102.1 fL (80-100); MEAN PLATELET VOLUME 8.7 fL (7.4-10.4); MONOCYTES # (AUTO) 0.34 x10^3/uL (0.2-0.8); MONOCYTES % (AUTO) 7 % (2-9); NEUTROPHILS # (AUTO) 2.59 x10^3/uL (1.8-6.8); NEUTROPHILS % (AUTO) 52 % (42-75); PLATELET COUNT 339 x10^3/uL (130-400); RED BLOOD COUNT 3.95 x10^6/uL (3.82-5.3); RED CELL DISTRIBUTION WIDTH 14.2 % (9.6-15.2)
[2018-10-04 18:43] LABS: ALANINE AMINOTRANSFERASE 20 U/L (12-78); ALBUMIN 3.3 g/dL (3.4-5.0); ANION GAP 18 mmol/L (5-15); CALCIUM 9.1 mg/dL (8.5-10.1); CHLORIDE 96 mmol/L (98-107); CREATININE 1.78 mg/dL (0.55-1.02)
[2018-10-04 18:45] LABS: ALKALINE PHOSPHATASE 192 U/L (45-117); BILIRUBIN,TOTAL 0.4 mg/dL (0.2-1.0); TOTAL PROTEIN 7.9 g/dL (6.4-8.2)
--- NOTE | 2018-10-04 18:50 | NUR ---
report given to French
[2018-10-04] MEDS ORDERED: REGULAR INSULIN 62.5 UNITS in SODIUM CHLORIDE 0.9% 249.375 ML IV PRN (19:21)
--- NOTE | 2018-10-04 19:27 | NUR ---
pt in ct at this time.
[2018-10-04] MEDS ORDERED: ACETAMINOPHEN 325 MG TABLET ONE (19:35)
[2018-10-04] MEDS ORDERED: ONDANSETRON 2MG/ML, 2ML ONE (19:35)
--- NOTE | 2018-10-04 20:12 | NUR ---
ORDERED GLUCOSE GTT STARTED. PT VSS. WILL CONTINUE TO MONIITOR. PT AWARE SHE IS TO BE ADMITTED.
[2018-10-04] MEDS ORDERED: FERR324T5 PO (20:19)
--- NOTE | 2018-10-04 21:50 | NUR ---
INSULIN GTT TURNED OFF. ERP AWARE OF PT CURRENT BLOOD SUGAR, SEE CHARTED. PT GIVEN BEDSIDE COMMODE, ABLE TO USE STEADILY.
--- NOTE | 2018-10-04 22:21 | NUR ---
PT GIVEN SANDWICH WTIH ERP OKAY. PT HAS DRAMATIC DROP IN BLOOD GLUCOSE. PT RESTING CALMLY IN BED. NO STATED NEEDS AT THIS TIME. BOYFRIEND AT BEDSIDE. WILL CONTINUE TO MONITOR.
--- NOTE | 2018-10-04 23:13 | NUR ---
PT RESTING CALMLY IN BED AT THIS TIME. PT AWAITING HOSPITALIST EVAL. NO COMPLAINTS AT THIS TIME. PT FINGERSTICK BLOOD SUGAR WNL AT THIS TIME. WILL CONTINUE TO MONITOR PT. CALL LIGHT WITHIN REACH.
[2018-10-04] MEDS ORDERED: ONDANSETRON 2MG/ML, 2ML IVPush PRN (23:30)
[2018-10-04] MEDS ORDERED: morphine SULFATE 10 MG/ML, 1ML IVPush PRN (23:30)
[2018-10-04] MEDS ORDERED: DOCUSATE 100 MG CAPSULE PO PRN (23:30)
[2018-10-04] MEDS ORDERED: hydrALAzine 20 MG/ML, 1ML IVPush PRN (23:30)
[2018-10-04] MEDS ORDERED: OXYcodone IR 5MG TABLET PO PRN (23:30)
[2018-10-04] MEDS ORDERED: ONDANSETRON ODT 4 MG PO PRN (23:30)
[2018-10-04] MEDS ORDERED: ACETAMINOPHEN 325 MG TABLET PO PRN (23:30)
--- NOTE | 2018-10-05 00:04 | NUR ---
REPORT TO RASHAWN ALMEIDA FOR ROOM 519
[2018-10-05 00:18] LABS: ANION GAP 9 mmol/L (5-15); CALCIUM 8.6 mg/dL (8.5-10.1); CHLORIDE 104 mmol/L (98-107); CREATININE 0.98 mg/dL (0.55-1.02)
[2018-10-05 00:27] LABS: FREE T4 (FREE THYROXINE) 0.85 ng/dL (0.76-1.46)
[2018-10-05 00:28] LABS: HEMOGLOBIN A1C 12.1 % (4.2-6.3)
[2018-10-05 00:40] VITALS: BP 107/72
[2018-10-05 00:45] VITALS: BP 107/72
[2018-10-05] MEDS: SODIUM CHLORIDE 0.9% 1,000 ML IV SCH ×3 (01:11→11:05)
[2018-10-05] MEDS: INSULIN GLARGINE 100 UNITS/ML, PEN SQ-INSULIN SCH ×2 (01:11→08:03)
[2018-10-05] MEDS: INSULIN LISPRO 100 UNITS/ML, PEN SQ-INSULIN SCH ×3 (01:11→11:05)
[2018-10-05 01:17] LABS: MICROSCOPIC NOT IND
[2018-10-05 01:22] LABS: CULTURE INDICATED? NO
[2018-10-05 04:01] LABS: BASOPHILS # (AUTO) 0.04 x10^3/uL (0-0.1); BASOPHILS % (AUTO) 1 % (0-1); EOSINOPHILS # (AUTO) 0.08 x10^3/uL (0-0.4); EOSINOPHILS % (AUTO) 1 % (1-7); LYMPHOCYTES % (AUTO) 44 % (22-44); MD NO; MEAN CORPUSCULAR HEMOGLOBIN 33.4 pg (27.0-34.8); MEAN CORPUSCULAR HGB CONC 33.6 g/dL (32.4-35.8); MEAN CORPUSCULAR VOLUME 99.4 fL (80-100); MEAN PLATELET VOLUME 7.8 fL (7.4-10.4); MONOCYTES # (AUTO) 0.42 x10^3/uL (0.2-0.8); MONOCYTES % (AUTO) 7 % (2-9); NEUTROPHILS # (AUTO) 2.94 x10^3/uL (1.8-6.8); NEUTROPHILS % (AUTO) 48 % (42-75); PLATELET COUNT 312 x10^3/uL (130-400); RED BLOOD COUNT 3.35 x10^6/uL (3.82-5.3); RED CELL DISTRIBUTION WIDTH 14.1 % (9.6-15.2)
[2018-10-05 04:03] LABS: ALANINE AMINOTRANSFERASE 15 U/L (12-78); ALBUMIN 2.6 g/dL (3.4-5.0); ANION GAP 9 mmol/L (5-15); CALCIUM 8.2 mg/dL (8.5-10.1); CHLORIDE 108 mmol/L (98-107); CHOLESTEROL, TOTAL 134 mg/dL (140-239); CREATININE 0.93 mg/dL (0.55-1.02)
[2018-10-05 04:05] LABS: ALKALINE PHOSPHATASE 120 U/L (45-117); BILIRUBIN,TOTAL 0.3 mg/dL (0.2-1.0); CHOL/HDL RATIO 4.1; HDL CHOL % 25 % (28-40); HDL CHOLESTEROL (DIRECT) 33 mg/dL (40-60); LDL CHOLESTEROL,CALCULATED 58 mg/dL (54-169); LDL/HDL RATIO 1.8 (0.5-3.0); TOTAL PROTEIN 6.4 g/dL (6.4-8.2); TRIGLYCERIDES 216 mg/dL (50-200); VLDL CHOLESTEROL 43 mg/dL (0-25)
[2018-10-05 07:38] VITALS: BP 109/76
[2018-10-05 09:29] LABS: ANION GAP 10 mmol/L (5-15); CHLORIDE 105 mmol/L (98-107); CREATININE 0.95 mg/dL (0.55-1.02)
[2018-10-05] MEDS ORDERED: INSU100I11 SQ-INSULIN (11:15)
[2018-10-05 12:07] LABS: ANION GAP 7 mmol/L (5-15); CHLORIDE 108 mmol/L (98-107); CREATININE 0.82 mg/dL (0.55-1.02)
== END 2018-10-05 13:38 | disposition home or self-care (01) | DRG 637 ==
LOC: ED 18:07 → EDIP 19:42 → 5SO 10-05 00:17 → DCLOUNGE 10-05 13:35
PROVIDERS: ADMIT Internal Medicine; ATTEND Internal Medicine
DX: E10.10 Type 1 diabetes mellitus with ketoacidosis without coma (principal); N17.0 Acute kidney failure with tubular necrosis; E87.1 Hypo-osmolality and hyponatremia; E55.9 Vitamin D deficiency, unspecified; I10 Essential (primary) hypertension; E86.0 Dehydration; E78.5 Hyperlipidemia, unspecified; Z79.4 Long term (current) use of insulin; Z87.891 Personal history of nicotine dependence; Z91.11 Patient's noncompliance with dietary regimen; Z91.19 Patient's noncompliance with other medical treatment and regimen; Z91.81 History of falling; Z91.040 Latex allergy status; Z91.018 Allergy to other foods
CPT/HCPCS: 36415; 70450; 80048; 80053; 80061; 81003; 81025; 82010; 82803; 82962; 83036; 83690; 83735; 84439; 84443; 85025; 96374; 99291; J2405; J1815; J7030

== ENCOUNTER 2018-10-09 07:30 | Inpatient (IN) | payer MEDICAID ==
[~2018-10-09] VITALS: Ht 165.1 cm; Wt 80.4 kg
[~2018-10-09 07:30] MED LIST changes: +FERR324T5 PO
--- NOTE | 2018-10-09 07:51 | NUR ---
Pt presents to ED with n/v starting last night. Pt reports fall from syncope related to dehydration on 09/30. Pt c/o headache today. Pt FSBG on hospital glucometer reads "HIGH". Pt AOX4. Pt ambulates to room with steady gait balance.
[2018-10-09] MEDS ORDERED: SODIUM CHLORIDE 0.9% 1,000ML IVBOLUS ONE ×2 (08:00→22:00)
[2018-10-09] MEDS ORDERED: ONDANSETRON 2MG/ML, 2ML IVPush ONE (08:00)
[2018-10-09 08:47] LABS: PH, VENOUS 6.974 pH (7.320-7.420)
[2018-10-09 09:01] LABS: ALBUMIN 4.2 g/dL (3.4-5.0); ANION GAP 27 mmol/L (5-15); CALCIUM 9.4 mg/dL (8.5-10.1); CHLORIDE 101 mmol/L (98-107)
[2018-10-09 09:04] LABS: ALANINE AMINOTRANSFERASE 32 U/L (12-78); ALKALINE PHOSPHATASE 203 U/L (45-117); BILIRUBIN,TOTAL 0.5 mg/dL (0.2-1.0); CREATININE 1.67 mg/dL (0.55-1.02); TOTAL PROTEIN 9.2 g/dL (6.4-8.2)
[2018-10-09 09:07] LABS: BASOPHILS # (AUTO) 0.01 x10^3/uL (0-0.1); BASOPHILS % (AUTO) 0 % (0-1); EOSINOPHILS # (AUTO) 0.02 x10^3/uL (0-0.4); EOSINOPHILS % (AUTO) 0 % (1-7); LYMPHOCYTES # (AUTO) 1.41 x10^3/uL (1-3.4); LYMPHOCYTES % (AUTO) 18 % (22-44); MD SCAN; MEAN CORPUSCULAR HEMOGLOBIN 32.8 pg (27.0-34.8); MEAN CORPUSCULAR HGB CONC 31.4 g/dL (32.4-35.8); MEAN CORPUSCULAR VOLUME 104.2 fL (80-100); MEAN PLATELET VOLUME 8.8 fL (7.4-10.4); MONOCYTES # (AUTO) 0.28 x10^3/uL (0.2-0.8); MONOCYTES % (AUTO) 4 % (2-9); NEUTROPHILS # (AUTO) 6.27 x10^3/uL (1.8-6.8); NEUTROPHILS % (AUTO) 78 % (42-75); PLATELET COUNT 465 x10^3/uL (130-400); RED BLOOD COUNT 4.48 x10^6/uL (3.82-5.3); RED CELL DISTRIBUTION WIDTH 14.7 % (9.6-15.2)
--- NOTE | 2018-10-09 09:18 | NUR ---
Pt transported on [facility] to [facility]. Both bedrails up x 2.
[2018-10-09] MEDS ORDERED: REGULAR INSULIN 62.5 UNITS in SODIUM CHLORIDE 0.9% 249.375 ML IV PRN ×2 (09:19→11:30)
[2018-10-09 09:25] LABS: ACETONE, SERUM Large (80mg/dL) mg/dL (Negative)
[2018-10-09] MEDS ORDERED: SODIUM CHLORIDE 0.9% 1,000 ML IV ONE (09:28)
[2018-10-09] MEDS ORDERED: SODIUM CHLORIDE FLUSH 10ML SYR IVF PRN (09:30)
--- NOTE | 2018-10-09 09:59 | NUR ---
Pt back to room from IR. X-ray at bedside. FRANTZ. Provided report to ELLE Blair. All questions answered. Pt ready to transfer from ED to floor after ED EKG.
--- NOTE | 2018-10-09 10:13 | NUR ---
Pt transported to CCU from ED and left with all personal belongings. NADN. No needs expressed. Pt and friend left with all personal belongings.
[2018-10-09] MEDS ORDERED: SODIUM CHLORIDE 0.9% 1,000 ML IV SCH ×2 (11:00→22:00)
[2018-10-09] MEDS ORDERED: LABETALOL 5 MG/ML SYRINGE IVPush PRN (11:00)
[2018-10-09] MEDS ORDERED: PHARMACY MAY ADJ FOR RENAL FX MC PRN (11:00)
[2018-10-09] MEDS ORDERED: ICN INSULIN (R) 1 UNIT/ML INJ. IV SCH (11:00)
[2018-10-09] MEDS ORDERED: ONDANSETRON 2MG/ML, 2ML IVPB PRN (11:00)
[2018-10-09] MEDS ORDERED: ACETAMINOPHEN 650 MG/20.3 ML UDC PO PRN (11:00)
[2018-10-09] MEDS: FAMOTIDINE 20 MG/2 ML IV SCH (11:51)
[2018-10-09] MEDS: ENOXAPARIN 40 MG/0.4 ML SQ SCH (11:51)
[2018-10-09 12:52] LABS: FIO2 ROOM AIR %
[2018-10-09 13:01] LABS: ANION GAP 17 mmol/L (5-15); CALCIUM 8.2 mg/dL (8.5-10.1); CHLORIDE 109 mmol/L (98-107)
[2018-10-09 13:02] LABS: CREATININE 1.18 mg/dL (0.55-1.02)
[2018-10-09 13:12] LABS: MICROSCOPIC AUTO
[2018-10-09 13:17] LABS: CULTURE INDICATED? NO
[2018-10-09] MEDS ORDERED: D5%-0.45NACL+KCL 20MEQ 1,000 ML IV SCH (13:30)
[2018-10-09 17:13] LABS: ANION GAP 11 mmol/L (5-15); CALCIUM 8.3 mg/dL (8.5-10.1); CHLORIDE 109 mmol/L (98-107); CREATININE 1.08 mg/dL (0.55-1.02)
[2018-10-09] MEDS ORDERED: DEXTROSE 50%, 50ML SYRINGE IVPush PRN (17:30)
[2018-10-09] MEDS ORDERED: GLUCAGON 1 MG IM PRN (17:30)
[2018-10-09] MEDS ORDERED: DEXTROSE 4 GM TAB.CHEW PO PRN (17:30)
[2018-10-09] MEDS: INSULIN GLARGINE 100 UNITS/ML, PEN SQ-INSULIN SCH ×2 (17:45→18:08)
[2018-10-09] MEDS: SODIUM CHLORIDE FLUSH 10ML SYR IVF SCH (21:00)
[2018-10-09 21:09] LABS: ANION GAP 12 mmol/L (5-15); CHLORIDE 105 mmol/L (98-107); CREATININE 1.31 mg/dL (0.55-1.02)
[2018-10-09] MEDS: INSULIN LISPRO 100 UNITS/ML, PEN SQ-INSULIN SCH (21:59)
[2018-10-09 23:35] LABS: ANION GAP 12 mmol/L (5-15); CALCIUM 7.8 mg/dL (8.5-10.1); CHLORIDE 108 mmol/L (98-107); CREATININE 1.42 mg/dL (0.55-1.02)
[2018-10-10] MEDS: FAMOTIDINE 20 MG/2 ML IV SCH ×3 (00:25→22:56)
[2018-10-10 01:24] LABS: ANION GAP 8 mmol/L (5-15); CALCIUM 8.2 mg/dL (8.5-10.1); CHLORIDE 112 mmol/L (98-107); CREATININE 0.92 mg/dL (0.55-1.02)
[2018-10-10] MEDS ORDERED: POTASSIUM CHLORIDE 40 MEQ in SODIUM CHLORIDE 0.9% 500 ML IV ONE (02:00)
[2018-10-10] MEDS: D5%-0.45NACL+KCL 20MEQ 1,000 ML IV SCH ×2 (02:36→06:36)
[2018-10-10 05:30] LABS: ANION GAP 7 mmol/L (5-15); CALCIUM 8.1 mg/dL (8.5-10.1); CHLORIDE 113 mmol/L (98-107)
[2018-10-10 05:58] LABS: MEAN CORPUSCULAR HEMOGLOBIN 32.7 pg (27.0-34.8); MEAN CORPUSCULAR HGB CONC 32.8 g/dL (32.4-35.8); MEAN CORPUSCULAR VOLUME 99.7 fL (80-100); MEAN PLATELET VOLUME 7.5 fL (7.4-10.4); PLATELET COUNT 309 x10^3/uL (130-400); RED BLOOD COUNT 3.16 x10^6/uL (3.82-5.3); RED CELL DISTRIBUTION WIDTH 14.6 % (9.6-15.2)
[2018-10-10 06:20] LABS: MD SCAN
[2018-10-10 06:21] LABS: BASOPHILS # (AUTO) 0.06 x10^3/uL (0-0.1); BASOPHILS % (AUTO) 1 % (0-1); EOSINOPHILS # (AUTO) 0.04 x10^3/uL (0-0.4); EOSINOPHILS % (AUTO) 1 % (1-7); LYMPHOCYTES # (AUTO) 2.34 x10^3/uL (1-3.4); LYMPHOCYTES % (AUTO) 52 % (22-44); MONOCYTES # (AUTO) 0.34 x10^3/uL (0.2-0.8); MONOCYTES % (AUTO) 8 % (2-9); NEUTROPHILS % (AUTO) 38 % (42-75)
[2018-10-10] MEDS ORDERED: POTASSIUM CHLORIDE 20 MEQ in SODIUM CHLORIDE 0.45% 1,000 ML IV SCH (07:30)
[2018-10-10] MEDS: INSULIN GLARGINE 100 UNITS/ML, PEN SQ-INSULIN SCH (07:45)
[2018-10-10] MEDS: INSULIN LISPRO 100 UNITS/ML, PEN SQ-INSULIN SCH ×4 (07:45→21:23)
[2018-10-10] MEDS: SODIUM CHLORIDE FLUSH 10ML SYR IVF SCH ×2 (07:46→21:00)
[2018-10-10] MEDS: MAGNESIUM OXIDE 400 MG TABLET PO SCH (07:46)
[2018-10-10] MEDS: ENOXAPARIN 40 MG/0.4 ML SQ SCH (11:35)
[2018-10-10] MEDS ORDERED: D5%-0.45NACL+KCL 20MEQ 1,000 ML IV SCH (13:30)
[2018-10-10 19:06] VITALS: BP 117/79
[2018-10-10] MEDS ORDERED: INSULIN GLARGINE 100 UNITS/ML, PEN SQ-INSULIN SCH ×2 (21:00)
[2018-10-11 03:00] VITALS: BP 116/75
[2018-10-11 03:41] LABS: BASOPHILS # (AUTO) 0.02 x10^3/uL (0-0.1); BASOPHILS % (AUTO) 0 % (0-1); EOSINOPHILS # (AUTO) 0.03 x10^3/uL (0-0.4); EOSINOPHILS % (AUTO) 1 % (1-7); LYMPHOCYTES # (AUTO) 2.01 x10^3/uL (1-3.4); LYMPHOCYTES % (AUTO) 50 % (22-44); MD NO; MEAN CORPUSCULAR HEMOGLOBIN 33.8 pg (27.0-34.8); MEAN CORPUSCULAR HGB CONC 33.5 g/dL (32.4-35.8); MEAN PLATELET VOLUME 7.6 fL (7.4-10.4); MONOCYTES # (AUTO) 0.23 x10^3/uL (0.2-0.8); MONOCYTES % (AUTO) 6 % (2-9); NEUTROPHILS # (AUTO) 1.71 x10^3/uL (1.8-6.8); NEUTROPHILS % (AUTO) 43 % (42-75); PLATELET COUNT 272 x10^3/uL (130-400); RED BLOOD COUNT 3.25 x10^6/uL (3.82-5.3); RED CELL DISTRIBUTION WIDTH 14.6 % (9.6-15.2)
[2018-10-11 03:51] LABS: ALBUMIN 2.7 g/dL (3.4-5.0); ANION GAP 12 mmol/L (5-15); CALCIUM 8.2 mg/dL (8.5-10.1); CHLORIDE 108 mmol/L (98-107); CREATININE 1.08 mg/dL (0.55-1.02)
[2018-10-11 06:59] VITALS: BP 130/89
[2018-10-11] MEDS ORDERED: POTASSIUM CHLORIDE 20 MEQ in SODIUM CHLORIDE 0.45% 1,000 ML IV SCH (07:30)
[2018-10-11] MEDS: MAGNESIUM OXIDE 400 MG TABLET PO SCH (08:30)
[2018-10-11] MEDS: SODIUM CHLORIDE FLUSH 10ML SYR IVF SCH (08:31)
[2018-10-11] MEDS: INSULIN LISPRO 100 UNITS/ML, PEN SQ-INSULIN SCH ×3 (08:31→16:00)
[2018-10-11] MEDS ORDERED: LISINOPRIL 5 MG TABLET PO SCH (09:00)
[2018-10-11] MEDS ORDERED: INSULIN GLARGINE 100 UNITS/ML, PEN SQ-INSULIN SCH ×2 (09:00)
[2018-10-11] MEDS: FAMOTIDINE 20 MG/2 ML IV SCH (11:13)
[2018-10-11] MEDS: ENOXAPARIN 40 MG/0.4 ML SQ SCH (11:13)
[2018-10-11 14:01] VITALS: BP 123/87
[2018-10-11] MEDS ORDERED: LISI5TAB7 PO (16:27)
== END 2018-10-11 18:15 | disposition home or self-care (01) | DRG 638 ==
LOC: ED 08:59 → EDIP 09:28 → CCU 10:21 → 3NE 10-10 14:21
PROVIDERS: ADMIT Hospitalist; ATTEND Hospitalist
PROC: 4A023N7 Measurement of Cardiac Sampling and Pressure, Left Heart, Percutaneous Approach (ICD-10-PCS; principal; 2018-10-09)
PROC: B2111ZZ Fluoroscopy of Multiple Coronary Arteries using Low Osmolar Contrast (ICD-10-PCS; 2018-10-09)
PROC: B2151ZZ Fluoroscopy of Left Heart using Low Osmolar Contrast (ICD-10-PCS; 2018-10-09)
DX: E10.10 Type 1 diabetes mellitus with ketoacidosis without coma (principal); N17.9 Acute kidney failure, unspecified; D75.89 Other specified diseases of blood and blood-forming organs; E78.5 Hyperlipidemia, unspecified; E86.0 Dehydration; E87.5 Hyperkalemia; F12.90 Cannabis use, unspecified, uncomplicated; I10 Essential (primary) hypertension; Z79.4 Long term (current) use of insulin; Z83.3 Family history of diabetes mellitus; Z82.0 Family history of epilepsy and other diseases of the nervous system; Z87.891 Personal history of nicotine dependence; Z91.19 Patient's noncompliance with other medical treatment and regimen
CPT/HCPCS: 36415; 36600; J3490; 36573; 71045; 80048; 80053; 81001; 82010; 82040; 82803; 82962; 83690; 83735; 84100; 84703; 85025; 87081; 93005; G0378; J1650; J1815; J3480; C1751; J7030; J7040; J7050

== ENCOUNTER 2018-10-15 09:24 | Inpatient (IN) | payer MEDICAID ==
[~2018-10-15] VITALS: Ht 165.1 cm; Wt 79.3 kg
[2018-10-19 06:55] VITALS: BP 117/79
== END 2018-10-19 12:16 | disposition home or self-care (01) | DRG 420 ==
LOC: ED 12:31 → EDIP 12:45 → CCU 12:59 → 3NE 10-17 18:00
PROVIDERS: ADMIT Hospitalist; ATTEND Hospitalist
PROC: 02HV33Z Insertion of Infusion Device into Superior Vena Cava, Percutaneous Approach (ICD-10-PCS; principal; 2018-10-15)
PROC: B5181ZA Fluoroscopy of Superior Vena Cava using Low Osmolar Contrast, Guidance (ICD-10-PCS; 2018-10-15)
PROC: B548ZZA Ultrasonography of Superior Vena Cava, Guidance (ICD-10-PCS; 2018-10-15)
DX: E10.10 Type 1 diabetes mellitus with ketoacidosis without coma (principal); N17.0 Acute kidney failure with tubular necrosis; D72.828 Other elevated white blood cell count; D75.89 Other specified diseases of blood and blood-forming organs; E55.9 Vitamin D deficiency, unspecified; E78.5 Hyperlipidemia, unspecified; I10 Essential (primary) hypertension; K21.9 Gastro-esophageal reflux disease without esophagitis; Z82.0 Family history of epilepsy and other diseases of the nervous system; Z83.3 Family history of diabetes mellitus; E87.1 Hypo-osmolality and hyponatremia; Z88.8 Allergy status to other drugs, medicaments and biological substances; Z91.040 Latex allergy status
CPT/HCPCS: 36415; 36573; 71045; 80048; 80053; 81001; 82010; 82040; 82533; 82803; 82947; 82962; 84145; 84484; 85025; 87040; 87081; G0378; J1650; J1815; J2543; J3370; J3480; Q0162; Q9966; C1751; J7030; J7050

== ENCOUNTER 2018-10-22 20:31 | Emergency (ER) | payer MEDICAID ==
[~2018-10-22] VITALS: Ht 165.1 cm; Wt 80.0 kg
[2018-10-23 06:29] VITALS: BP 96/88
== END 2018-10-23 06:34 | disposition home or self-care (01) ==
LOC: ED 21:09
DX: E11.65 Type 2 diabetes mellitus with hyperglycemia (principal); R10.13 Epigastric pain; R11.0 Nausea; R79.89 Other specified abnormal findings of blood chemistry
CPT/HCPCS: 36415; 80048; 80053; 81003; 81025; 82010; 82040; 82803; 82962; 83690; 85025; 96372

== ENCOUNTER 2018-10-24 07:47 | Inpatient (IN) | payer MEDICAID ==
[~2018-10-24] VITALS: Ht 162.6 cm; Wt 76.0 kg
[2018-10-24] MEDS ORDERED: LIDOCAINE-MPF 1%, 2ML ONE (08:00)
[2018-10-24] MEDS ORDERED: SODIUM CHLORIDE 0.9% 1,000ML IVBOLUS ONE ×3 (08:00→10:00)
[2018-10-24 09:13] LABS: PH, VENOUS 6.762 pH (7.320-7.420)
[2018-10-24 09:14] LABS: FIO2 RA %
[2018-10-24] MEDS ORDERED: SODIUM CHLORIDE 0.9% 1,000 ML IV SCH (09:21)
[2018-10-24] MEDS ORDERED: D5%-0.45NACL+KCL 20MEQ 1,000 ML IV SCH (09:21)
[2018-10-24 09:27] LABS: ACETONE, SERUM Large (80mg/dL) mg/dL (Negative)
[2018-10-24] MEDS ORDERED: LABETALOL 5MG/ML, 20ML IVPush PRN (09:30)
[2018-10-24] MEDS ORDERED: POLYETHYLENE GLYCOL 17 GM PACKET PO PRN (09:30)
[2018-10-24] MEDS ORDERED: INSULIN REGULAR 100 UNITS/ML, 3ML VIAL IVPush ONE (09:30)
[2018-10-24] MEDS: PLEASE ENTER HEIGHT AND WEIGHT MC SCH ×2 (09:30→16:24)
[2018-10-24] MEDS ORDERED: ONDANSETRON 2MG/ML, 2ML IVPush PRN (09:30)
[2018-10-24 09:38] LABS: ALANINE AMINOTRANSFERASE 23 U/L (12-78); ALBUMIN 3.8 g/dL (3.4-5.0); ANION GAP 34 mmol/L (5-15); CALCIUM 9.1 mg/dL (8.5-10.1); CHLORIDE 88 mmol/L (98-107); CREATININE 2.48 mg/dL (0.55-1.02)
[2018-10-24 09:40] LABS: ALKALINE PHOSPHATASE 196 U/L (45-117); BILIRUBIN,TOTAL 0.4 mg/dL (0.2-1.0); TOTAL PROTEIN 8.1 g/dL (6.4-8.2)
[2018-10-24] MEDS ORDERED: SODIUM BICARB 8.4%, 50ML SYRINGE IVPush ONE ×2 (10:00→10:30)
[2018-10-24] MEDS ORDERED: INSULIN SINGLE DOSE, ER SQ-INSULIN ONE (10:10)
[2018-10-24] MEDS ORDERED: SODIUM BICARB 8.4%, 50ML SYRINGE ONE (10:12)
[2018-10-24 10:25] LABS: MEAN CORPUSCULAR HEMOGLOBIN 32.8 pg (27.0-34.8); MEAN CORPUSCULAR VOLUME 118.2 fL (80-100); MEAN PLATELET VOLUME 8.8 fL (7.4-10.4); PLATELET COUNT 594 x10^3/uL (130-400); RED BLOOD COUNT 3.86 x10^6/uL (3.82-5.3); RED CELL DISTRIBUTION WIDTH 16.5 % (9.6-15.2)
[2018-10-24 10:26] LABS: MD YES; MEAN CORPUSCULAR HGB CONC 27.8 g/dL (32.4-35.8)
[2018-10-24 10:28] LABS: BAND#(MANUAL) 0.67 x10^3/uL; BANDS%(MANUAL) 3 % (0-7); EOS#(MANUAL) 0.22 x10^3/uL (0.0-0.4); EOS% (MANUAL) 1 % (1-7); LYMPH#(MANUAL) 4.88 x10^3/uL (1-3.4); LYMPHS% (MANUAL) 22 % (22-44); METAMYELOCYTES# (MANUAL) 0.44 x10^3/uL (0-0); METAMYELOCYTES% (MANUAL) 2 % (0-1); MYELOCYTES# (MANUAL) 0.44 x10^3/uL (0-0); MYELOCYTES% (MANUAL) 2 % (0-0)
[2018-10-24 10:29] LABS: MONOS#(MANUAL) 1.55 x10^3/uL (0.3-2.7); MONOS% (MANUAL) 7 % (2-9); SEG#(MANUAL) 13.99 x10^3/uL (1.8-6.8); SEGS% (MANUAL) 63 % (42-75)
[2018-10-24 10:30] LABS: <PLATELET ESTIMATE> INCREASED; <PLT MORPHOLOGY> NORMAL PLT MORPH; ANISOCYTOSIS 1+; HYPOCHROMIA 1+; POLYCHROMASIA 1+
[2018-10-24 11:07] LABS: TROPONIN I < 0.015 ng/mL (0.000-0.045)
[2018-10-24 11:30] VITALS: BP 98/50
[2018-10-24] MEDS: REGULAR INSULIN 62.5 UNITS in SODIUM CHLORIDE 0.9% 249.375 ML IV PRN ×2 (12:07→18:15)
[2018-10-24 12:45] LABS: ANION GAP 36 mmol/L (5-15); CALCIUM 8.2 mg/dL (8.5-10.1); CHLORIDE 91 mmol/L (98-107)
[2018-10-24 12:50] LABS: CREATININE 2.77 mg/dL (0.55-1.02)
[2018-10-24 12:54] LABS: MICROSCOPIC NOT IND
[2018-10-24 13:01] LABS: CULTURE INDICATED? NO
[2018-10-24] MEDS ORDERED: SODIUM BICARBONATE 1 MEQ/ML, 50ML VIAL ONE (13:05)
[2018-10-24] MEDS: SODIUM BICARB 8.4%, 50ML SYRINGE IVPush ONE ×2 (13:10→13:30)
[2018-10-24 14:00] VITALS: BP 98/50
[2018-10-24 14:35] LABS: ANION GAP 29 mmol/L (5-15); CALCIUM 7.4 mg/dL (8.5-10.1); CHLORIDE 109 mmol/L (98-107); CREATININE 2.25 mg/dL (0.55-1.02)
[2018-10-24 14:38] LABS: TROPONIN I < 0.015 ng/mL (0.000-0.045)
[2018-10-24] MEDS: HEPARIN 5,000 UNITS/ML, 1ML SQ SCH ×2 (16:24→23:06)
[2018-10-24 17:09] LABS: ANION GAP 21 mmol/L (5-15); CHLORIDE 121 mmol/L (98-107); CREATININE 1.93 mg/dL (0.55-1.02)
[2018-10-24] MEDS ORDERED: POTASSIUM CHLORIDE 20 MEQ TAB.ER.PRT PO ONE (18:00)
[2018-10-24 19:00] LABS: ANION GAP 13 mmol/L (5-15); CALCIUM 7.6 mg/dL (8.5-10.1); CHLORIDE 124 mmol/L (98-107); CREATININE 1.83 mg/dL (0.55-1.02)
[2018-10-24] MEDS: D5%-0.45NACL+KCL 20MEQ 1,000 ML IV SCH (19:54)
[2018-10-24] MEDS ORDERED: FAMOTIDINE 20 MG/2 ML IVPush SCH ×2 (21:00)
[2018-10-24 23:03] LABS: ANION GAP 10 mmol/L (5-15); CALCIUM 6.6 mg/dL (8.5-10.1); CHLORIDE 112 mmol/L (98-107); CREATININE 1.27 mg/dL (0.55-1.02)
[2018-10-25 02:27] LABS: ANION GAP 14 mmol/L (5-15); CALCIUM 6.5 mg/dL (8.5-10.1); CHLORIDE 110 mmol/L (98-107)
[2018-10-25] MEDS: D5%-0.45NACL+KCL 20MEQ 1,000 ML IV SCH (02:52)
[2018-10-25 04:00] VITALS: BP 89/46
[2018-10-25 05:32] LABS: ALBUMIN 2.5 g/dL (3.4-5.0); ANION GAP 9 mmol/L (5-15); CALCIUM 6.8 mg/dL (8.5-10.1); CHLORIDE 110 mmol/L (98-107)
[2018-10-25 05:36] LABS: ALANINE AMINOTRANSFERASE 16 U/L (12-78); ALKALINE PHOSPHATASE 102 U/L (45-117); BILIRUBIN,TOTAL 0.4 mg/dL (0.2-1.0); CREATININE 1.27 mg/dL (0.55-1.02); TOTAL PROTEIN 5.5 g/dL (6.4-8.2)
[2018-10-25 06:27] LABS: MEAN CORPUSCULAR HEMOGLOBIN 32.4 pg (27.0-34.8); MEAN CORPUSCULAR HGB CONC 32.6 g/dL (32.4-35.8); MEAN CORPUSCULAR VOLUME 99.5 fL (80-100); MEAN PLATELET VOLUME 6.8 fL (7.4-10.4); PLATELET COUNT 334 x10^3/uL (130-400); RED BLOOD COUNT 2.93 x10^6/uL (3.82-5.3); RED CELL DISTRIBUTION WIDTH 14.3 % (9.6-15.2)
[2018-10-25] MEDS: HEPARIN 5,000 UNITS/ML, 1ML SQ SCH ×3 (06:32→23:03)
[2018-10-25] MEDS: INSULIN LISPRO 100 UNITS/ML, PEN SQ-INSULIN SCH ×4 (07:00→20:29)
[2018-10-25 07:01] LABS: MD SCAN
[2018-10-25 07:03] LABS: BASOPHILS # (AUTO) 0.01 x10^3/uL (0-0.1); BASOPHILS % (AUTO) 0 % (0-1); EOSINOPHILS # (AUTO) 0.01 x10^3/uL (0-0.4); EOSINOPHILS % (AUTO) 0 % (1-7); LYMPHOCYTES # (AUTO) 1.63 x10^3/uL (1-3.4); LYMPHOCYTES % (AUTO) 19 % (22-44); MONOCYTES # (AUTO) 0.83 x10^3/uL (0.2-0.8); MONOCYTES % (AUTO) 10 % (2-9); NEUTROPHILS # (AUTO) 6.05 x10^3/uL (1.8-6.8); NEUTROPHILS % (AUTO) 71 % (42-75)
[2018-10-25] MEDS: ACETAMINOPHEN 325 MG TABLET PO PRN (08:25)
[2018-10-25] MEDS: SENNA/DOCUSATE TABLET PO SCH (08:25)
[2018-10-25] MEDS ORDERED: INSULIN GLARGINE 100 UNITS/ML, PEN SQ-INSULIN SCH (09:00)
[2018-10-25] MEDS ORDERED: SODIUM CHLORIDE 0.9% 1,000 ML IV SCH (09:21)
[2018-10-25 13:28] VITALS: BP 114/95
[2018-10-25 19:19] VITALS: BP 94/59
[2018-10-25] MEDS: INSULIN GLARGINE 100 UNITS/ML, PEN SQ-INSULIN SCH (20:29)
[2018-10-26 02:31] VITALS: BP 110/74
[2018-10-26 03:46] LABS: ANION GAP 5 mmol/L (5-15); CALCIUM 8.2 mg/dL (8.5-10.1); CHLORIDE 111 mmol/L (98-107); CREATININE 1.15 mg/dL (0.55-1.02)
[2018-10-26] MEDS: HEPARIN 5,000 UNITS/ML, 1ML SQ SCH ×3 (07:00→23:00)
[2018-10-26] MEDS: INSULIN LISPRO 100 UNITS/ML, PEN SQ-INSULIN SCH ×4 (07:00→20:47)
[2018-10-26 07:39] VITALS: BP 104/70
[2018-10-26] MEDS: SENNA/DOCUSATE TABLET PO SCH (09:00)
[2018-10-26] MEDS: INSULIN GLARGINE 100 UNITS/ML, PEN SQ-INSULIN SCH ×2 (09:58→20:46)
[2018-10-26] MEDS: ACETAMINOPHEN 325 MG TABLET PO PRN (09:58)
[2018-10-26 12:36] VITALS: BP 113/78
[2018-10-26 20:07] VITALS: BP 116/82
[2018-10-26] MEDS ORDERED: INSULIN GLARGINE 100 UNITS/ML, PEN SQ-INSULIN SCH (21:00)
[2018-10-27 02:25] VITALS: BP 95/62
[2018-10-27 04:29] LABS: BASOPHILS # (AUTO) 0.04 x10^3/uL (0-0.1); BASOPHILS % (AUTO) 1 % (0-1); EOSINOPHILS # (AUTO) 0.03 x10^3/uL (0-0.4); EOSINOPHILS % (AUTO) 1 % (1-7); LYMPHOCYTES # (AUTO) 1.32 x10^3/uL (1-3.4); LYMPHOCYTES % (AUTO) 40 % (22-44); MD NO; MEAN CORPUSCULAR HEMOGLOBIN 33.9 pg (27.0-34.8); MEAN CORPUSCULAR HGB CONC 33.9 g/dL (32.4-35.8); MEAN PLATELET VOLUME 6.7 fL (7.4-10.4); MONOCYTES # (AUTO) 0.43 x10^3/uL (0.2-0.8); MONOCYTES % (AUTO) 13 % (2-9); NEUTROPHILS # (AUTO) 1.49 x10^3/uL (1.8-6.8); NEUTROPHILS % (AUTO) 45 % (42-75); PLATELET COUNT 253 x10^3/uL (130-400); RED BLOOD COUNT 3.09 x10^6/uL (3.82-5.3); RED CELL DISTRIBUTION WIDTH 14.5 % (9.6-15.2)
[2018-10-27 04:42] LABS: HEMOGLOBIN A1C 10.9 % (4.2-6.3)
[2018-10-27 04:45] LABS: ANION GAP 7 mmol/L (5-15); CALCIUM 8.3 mg/dL (8.5-10.1); CHLORIDE 110 mmol/L (98-107)
[2018-10-27 04:50] LABS: ALANINE AMINOTRANSFERASE 27 U/L (12-78); ALKALINE PHOSPHATASE 115 U/L (45-117); BILIRUBIN,TOTAL 0.4 mg/dL (0.2-1.0); CREATININE 0.86 mg/dL (0.55-1.02)
[2018-10-27] MEDS: HEPARIN 5,000 UNITS/ML, 1ML SQ SCH ×3 (07:00→22:09)
[2018-10-27 07:12] VITALS: BP 108/73
[2018-10-27] MEDS: INSULIN LISPRO 100 UNITS/ML, PEN SQ-INSULIN SCH ×4 (08:23→19:44)
[2018-10-27] MEDS: INSULIN GLARGINE 100 UNITS/ML, PEN SQ-INSULIN SCH ×2 (08:23→19:45)
[2018-10-27] MEDS: SENNA/DOCUSATE TABLET PO SCH (08:24)
[2018-10-27 14:27] VITALS: BP 111/75
[2018-10-27 19:10] VITALS: BP 122/82
[2018-10-28 01:25] VITALS: BP 111/76
[2018-10-28 04:22] LABS: ALANINE AMINOTRANSFERASE 27 U/L (12-78); ALBUMIN 2.8 g/dL (3.4-5.0); ANION GAP 6 mmol/L (5-15); CALCIUM 8.3 mg/dL (8.5-10.1); CHLORIDE 110 mmol/L (98-107); CREATININE 0.76 mg/dL (0.55-1.02)
[2018-10-28 04:24] LABS: ALKALINE PHOSPHATASE 117 U/L (45-117); BILIRUBIN,TOTAL 0.3 mg/dL (0.2-1.0)
[2018-10-28 04:52] LABS: BASOPHILS # (AUTO) 0.04 x10^3/uL (0-0.1); BASOPHILS % (AUTO) 1 % (0-1); EOSINOPHILS # (AUTO) 0.05 x10^3/uL (0-0.4); EOSINOPHILS % (AUTO) 2 % (1-7); LYMPHOCYTES # (AUTO) 1.67 x10^3/uL (1-3.4); LYMPHOCYTES % (AUTO) 50 % (22-44); MD NO; MEAN CORPUSCULAR HEMOGLOBIN 33.6 pg (27.0-34.8); MEAN CORPUSCULAR HGB CONC 33.4 g/dL (32.4-35.8); MEAN CORPUSCULAR VOLUME 100.4 fL (80-100); MEAN PLATELET VOLUME 7.1 fL (7.4-10.4); MONOCYTES # (AUTO) 0.28 x10^3/uL (0.2-0.8); MONOCYTES % (AUTO) 8 % (2-9); NEUTROPHILS # (AUTO) 1.29 x10^3/uL (1.8-6.8); NEUTROPHILS % (AUTO) 39 % (42-75); PLATELET COUNT 206 x10^3/uL (130-400); RED BLOOD COUNT 3.09 x10^6/uL (3.82-5.3)
[2018-10-28 06:51] VITALS: BP 107/74
[2018-10-28] MEDS: INSULIN LISPRO 100 UNITS/ML, PEN SQ-INSULIN SCH ×4 (07:00→19:26)
[2018-10-28] MEDS: HEPARIN 5,000 UNITS/ML, 1ML SQ SCH ×3 (07:00→22:55)
[2018-10-28] MEDS: INSULIN GLARGINE 100 UNITS/ML, PEN SQ-INSULIN SCH ×2 (08:54→19:38)
[2018-10-28] MEDS: SENNA/DOCUSATE TABLET PO SCH (08:54)
[2018-10-28 13:03] VITALS: BP 111/75
[2018-10-28] MEDS: ACETAMINOPHEN 325 MG TABLET PO PRN (13:15)
[2018-10-28 19:03] VITALS: BP 107/72
[2018-10-28] MEDS: SODIUM CHLORIDE FLUSH 10ML SYR IVF SCH (19:55)
[2018-10-28] MEDS ORDERED: DEXTROSE 4 GM TAB.CHEW PO PRN (20:00)
[2018-10-28] MEDS ORDERED: GLUCAGON 1 MG IM PRN (20:00)
[2018-10-28] MEDS ORDERED: DEXTROSE 50%, 50ML SYRINGE IVPush PRN (20:00)
[2018-10-29 00:54] VITALS: BP 109/73
[2018-10-29] MEDS: HEPARIN 5,000 UNITS/ML, 1ML SQ SCH (07:00)
[2018-10-29] MEDS: INSULIN LISPRO 100 UNITS/ML, PEN SQ-INSULIN SCH ×2 (07:57→12:10)
[2018-10-29] MEDS: INSULIN GLARGINE 100 UNITS/ML, PEN SQ-INSULIN SCH (07:58)
[2018-10-29] MEDS: SODIUM CHLORIDE FLUSH 10ML SYR IVF SCH (08:02)
[2018-10-29] MEDS: SENNA/DOCUSATE TABLET PO SCH (08:03)
[2018-10-29 08:04] VITALS: BP 114/75
[2018-10-29 08:06] VITALS: BP 114/75
[2018-10-29] MEDS ORDERED: INSU100V8 SQ ×4 (10:12→10:20)
[2018-10-29 13:29] VITALS: BP 126/85
[2018-11-09] MEDS ORDERED: INSU100I13 SQ-INSULIN ×2 (12:36)
[2018-11-09] MEDS ORDERED: INSU100V8 SQ ×2 (12:36)
[2018-11-16] MEDS ORDERED: ASCO500T6 PO (13:43)
[2018-11-16] MEDS ORDERED: FERR-51 PO ×2 (13:43)
[2018-11-29] MEDS ORDERED: INSU100I13 SQ-INSULIN ×2 (11:28)
[2018-12-11] MEDS ORDERED: TUMS (18:19)
[2018-12-11] MEDS ORDERED: LISI-424 PO (18:19)
[2018-12-11] MEDS ORDERED: FERR-51 PO (18:19)
[2018-12-11] MEDS ORDERED: ATOR10TA9 PO (18:19)
[2018-12-11] MEDS ORDERED: ONDA8TAB16 PO (18:19)
[2018-12-19] MEDS ORDERED: INSU100I13 SQ-INSULIN (10:39)
== END 2018-10-29 14:33 | disposition home or self-care (01) | DRG 420 ==
LOC: ED 07:58 → EDIP 09:21 → ICU 11:16 → 3NE 10-25 10:13
PROVIDERS: ADMIT Internal Medicine; ATTEND Internal Medicine
PROC: 0T9B70Z Drainage of Bladder with Drainage Device, Via Natural or Artificial Opening (ICD-10-PCS; principal; 2018-10-24)
DX: E10.11 Type 1 diabetes mellitus with ketoacidosis with coma (principal); J96.00 Acute respiratory failure, unspecified whether with hypoxia or hypercapnia; N17.0 Acute kidney failure with tubular necrosis; G93.41 Metabolic encephalopathy; I95.9 Hypotension, unspecified; E10.649 Type 1 diabetes mellitus with hypoglycemia without coma; R65.10 Systemic inflammatory response syndrome (SIRS) of non-infectious origin without acute organ dysfunction; E87.5 Hyperkalemia; E87.1 Hypo-osmolality and hyponatremia; E55.9 Vitamin D deficiency, unspecified; E78.5 Hyperlipidemia, unspecified; I10 Essential (primary) hypertension; Z82.0 Family history of epilepsy and other diseases of the nervous system; Z83.3 Family history of diabetes mellitus; Z91.14 Patient's other noncompliance with medication regimen; D75.89 Other specified diseases of blood and blood-forming organs; D72.828 Other elevated white blood cell count; R00.0 Tachycardia, unspecified; T38.3X6A Underdosing of insulin and oral hypoglycemic [antidiabetic] drugs, initial encounter; Z91.138 Patient's unintentional underdosing of medication regimen for other reason; Y92.89 Other specified places as the place of occurrence of the external cause
CPT/HCPCS: 36415; 36600; 71045; 77001; 80048; 80053; 81003; 82010; 82533; 82803; 82947; 82962; 83036; 83690; 83735; 84100; 84443; 84484; 85025; 87040; 87081; 93005; 96361; 96374; 96375; 99291; G0378; J1644; J1815; J2405; C1751; J3480; J3490; J7030; J7050

== ENCOUNTER 2018-10-31 12:13 | Inpatient (IN) | payer MEDICAID ==
[~2018-10-31] VITALS: Ht 165.1 cm; Wt 80.9 kg
[2018-11-02 06:41] VITALS: BP 113/77
== END 2018-11-02 10:03 | disposition home or self-care (01) | DRG 420 ==
LOC: ED 13:51 → EDIP 13:52 → ED 14:10 → CCU 14:39 → 3NW 11-01 13:00
PROVIDERS: ADMIT Internal Medicine; ATTEND Internal Medicine
PROC: 02HV33Z Insertion of Infusion Device into Superior Vena Cava, Percutaneous Approach (ICD-10-PCS; principal; 2018-10-31)
PROC: B548ZZA Ultrasonography of Superior Vena Cava, Guidance (ICD-10-PCS; 2018-10-31)
PROC: B54MZZA Ultrasonography of Right Upper Extremity Veins, Guidance (ICD-10-PCS; 2018-10-31)
DX: E10.10 Type 1 diabetes mellitus with ketoacidosis without coma (principal); N17.0 Acute kidney failure with tubular necrosis; R65.10 Systemic inflammatory response syndrome (SIRS) of non-infectious origin without acute organ dysfunction; I10 Essential (primary) hypertension; E87.5 Hyperkalemia; E78.5 Hyperlipidemia, unspecified; E55.9 Vitamin D deficiency, unspecified; D75.89 Other specified diseases of blood and blood-forming organs; D72.829 Elevated white blood cell count, unspecified; Z91.040 Latex allergy status; Z83.3 Family history of diabetes mellitus; Z82.0 Family history of epilepsy and other diseases of the nervous system; Z91.19 Patient's noncompliance with other medical treatment and regimen; Z79.4 Long term (current) use of insulin; Z91.018 Allergy to other foods
CPT/HCPCS: 36415; 36556; 36573; 71045; 76937; 77001; 80048; 80053; 81003; 82010; 82803; 82962; 83690; 83735; 83930; 84100; 85025; 87081; 96374; 99291; G0378; J1650; J1815; J2550; C1751; J1642; J3480; J7030; J7050

== ENCOUNTER 2018-11-05 11:05 | Inpatient (IN) | payer MEDICAID ==
[~2018-11-05] VITALS: Ht 165.1 cm; Wt 81.6 kg
[2018-11-09 12:05] VITALS: BP 116/80
== END 2018-11-09 14:20 | disposition home or self-care (01) | DRG 420 ==
LOC: ED 12:16 → EDIP 12:41 → ICU 13:52 → 3NE 11-06 12:59 → DCLOUNGE 11-09 14:16
PROVIDERS: ADMIT Internal Medicine; ATTEND Internal Medicine
DX: E10.10 Type 1 diabetes mellitus with ketoacidosis without coma (principal); N17.0 Acute kidney failure with tubular necrosis; E87.1 Hypo-osmolality and hyponatremia; D75.89 Other specified diseases of blood and blood-forming organs; F12.90 Cannabis use, unspecified, uncomplicated; D50.9 Iron deficiency anemia, unspecified; E78.5 Hyperlipidemia, unspecified; K21.9 Gastro-esophageal reflux disease without esophagitis; E55.9 Vitamin D deficiency, unspecified; I10 Essential (primary) hypertension; Z72.89 Other problems related to lifestyle; Z91.14 Patient's other noncompliance with medication regimen; Z82.0 Family history of epilepsy and other diseases of the nervous system; Z83.3 Family history of diabetes mellitus; Z79.4 Long term (current) use of insulin; Z91.040 Latex allergy status; Z88.8 Allergy status to other drugs, medicaments and biological substances; Z79.899 Other long term (current) drug therapy
CPT/HCPCS: 80048; 80053; 82010; 82272; 82607; 82728; 82803; 82947; 82962; 83540; 83550; 83735; 84100; 85025; 87081; 96361; 96372; 96374; G0378; J1815; J7070; Q0162; J3480; J7030; J7040; J7050

== ENCOUNTER 2019-04-12 13:59 | Inpatient (IN) | payer MEDICAID ==
[~2019-04-12] VITALS: Ht 165.1 cm; Wt 78.4 kg
[~2019-04-12 13:59] MED LIST changes: +ASCO500T6 PO; +FERR-51 PO; +LISI-424 PO; +ONDA8TAB16 PO; +TUMS
--- NOTE | 2019-04-12 14:10 | NUR ---
FINGER STICK IN TRIAGE - HI
--- NOTE | 2019-04-12 14:38 | NUR ---
PT TO ROOM T2 FROM [facility] FOR C/O L ANKLE PAIN. WAS SEEN AT [facility] FOR SAME 2 DAYS AGO. PT STATES SHE HAS ALSO HAD SX OF DKA SUCH EHAVY BREATHING, NAUSEA, ABD PAIN, BS READ HI AT HOME. 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 PT RESTING ON GURNEY. FRANTZ. VSS. NANI RN AT BEDSIDE ATTEMPTING US GUIDED PIV. [employer] MED STUDENT AT BEDSIDE.
--- NOTE | 2019-04-12 14:47 | NUR ---
SPOKE W/ PT IN REGARDS TO PT'S UA SAMPLE AND THE NEED FOR STRAIGHT CATH. PT REFUSING STRAIGHT CATH. PT BS ALSO NOTED TO BE 561. ERP DR. ATKINS NOTIFIED.
--- NOTE | 2019-04-12 14:57 | NUR ---
ERP DR. ATKINS AT BEDSIDE DISCUSSING NEED FOR STRAIGHT CATH UA SAMPLE. WILL DISCUSS STRAIGHT CATH ONCE PIV INITIATED.
[2019-04-12] MEDS ORDERED: METOCLOPRAMIDE 5 MG/ML, 2ML IVPush ONE (15:00)
[2019-04-12] MEDS ORDERED: SODIUM CHLORIDE 0.9% 1,000ML IVBOLUS ONE (15:00)
--- NOTE | 2019-04-12 15:16 | NUR ---
AFTER MULTIPLE US GUIDED PIV ATTEMPTS UNABLE TO GET PIV. SPOKE W/ ERP DR. ATKINS. PER ERP HAVE LAB DRAW PT AND IF PT IS FOUND TO BE IN DKA CENTRAL LINE TO BE CONSIDERED.
--- NOTE | 2019-04-12 15:18 | NUR ---
MOTOR HOME ELECTRICAL FOREMAN NOTIFIED OF NEED FOR BLOOD.
--- NOTE | 2019-04-12 15:36 | NUR ---
LAUNCH STEWARD AT BEDSIDE.
--- NOTE | 2019-04-12 15:57 | NUR ---
SPOKE W/ ERP DR. ATKINS. UNABLE TO GET PIV. WILL HOLD OFF ON IV FLUIDS, IV REGLAN, AND SQ INSULIN UNTIL LAB WORK RETURNS.
[2019-04-12 16:09] LABS: O2 FLOW RA L/min
[2019-04-12 16:13] LABS: BASOPHILS # (AUTO) 0.05 x10^3/uL (0-0.1); BASOPHILS % (AUTO) 1 % (0-1); EOSINOPHILS % (AUTO) 0 % (1-7); LYMPHOCYTES # (AUTO) 1.14 x10^3/uL (1-3.4); LYMPHOCYTES % (AUTO) 20 % (22-44); MD NO; MEAN CORPUSCULAR HEMOGLOBIN 30.9 pg (27.0-34.8); MEAN CORPUSCULAR HGB CONC 32.2 g/dL (32.4-35.8); MEAN PLATELET VOLUME 7.9 fL (7.4-10.4); MONOCYTES # (AUTO) 0.54 x10^3/uL (0.2-0.8); MONOCYTES % (AUTO) 10 % (2-9); NEUTROPHILS # (AUTO) 3.94 x10^3/uL (1.8-6.8); NEUTROPHILS % (AUTO) 70 % (42-75); PLATELET COUNT 473 x10^3/uL (130-400); RED BLOOD COUNT 3.47 x10^6/uL (3.82-5.3); RED CELL DISTRIBUTION WIDTH 16.5 % (9.6-15.2)
[2019-04-12 16:16] LABS: MICROSCOPIC NOT IND
[2019-04-12 16:21] LABS: CULTURE INDICATED? NO
--- NOTE | 2019-04-12 16:24 | NUR ---
PER ERP DR. ATKINS ATTEMPT TO HAVE IR PLACE PICC LINE. SPOKE W/ DR. ALONZO IN IR WHO REFUSED TO DO PICC LINE THEY HAVE FAILED ON BOTH SIDES IN THE PAST FOR PICC PLACEMENT. ERP NOTIFIED.
[2019-04-12 16:25] LABS: ALANINE AMINOTRANSFERASE 44 U/L (12-78); ALBUMIN 3.1 g/dL (3.4-5.0); CALCIUM 8.3 mg/dL (8.5-10.1); CHLORIDE 108 mmol/L (98-107); CREATININE 1.44 mg/dL (0.55-1.02)
[2019-04-12 16:27] LABS: ALKALINE PHOSPHATASE 208 U/L (45-117); BILIRUBIN,TOTAL 0.4 mg/dL (0.2-1.0); TOTAL PROTEIN 7.3 g/dL (6.4-8.2)
[2019-04-12] MEDS ORDERED: ONDANSETRON 2MG/ML, 2ML IVPush PRN (16:30)
[2019-04-12] MEDS ORDERED: ENALAPRILAT 1.25 MG/ML, 2ML IVPush PRN (16:30)
[2019-04-12] MEDS ORDERED: REGULAR INSULIN 62.5 UNITS in SODIUM CHLORIDE 0.9% 249.375 ML IV PRN (16:30)
[2019-04-12] MEDS ORDERED: BISACODYL 10 MG SUPP PR PRN (16:30)
[2019-04-12] MEDS ORDERED: POLYETHYLENE GLYCOL 17 GM PACKET PO PRN (16:30)
[2019-04-12] MEDS ORDERED: ACETAMINOPHEN 325 MG TABLET PO PRN (16:30)
[2019-04-12] MEDS ORDERED: LABETALOL 5MG/ML, 20ML IVPush PRN (16:30)
--- NOTE | 2019-04-12 16:35 | NUR ---
DIMA, PT'S FIANCE CAN BE REACHED FOR ANY AND ALL UPDATES ON CARE. OK TO GIVE INFORMATION PER PT. [phone].
[2019-04-12 16:37] LABS: ANION GAP 28 mmol/L (5-15)
[2019-04-12 17:07] LABS: ACETONE, SERUM Large (80mg/dL) mg/dL (Negative)
--- NOTE | 2019-04-12 17:36 | NUR ---
THIS RN TO INITIATE IV FLUIDS AND IV MEDS ONCE CENTRAL LINE PLACEMENT CONFIRMED.
--- NOTE | 2019-04-12 17:52 | NUR ---
REPORT GIVEN TO SONIA, NELY RN. ALL QUESTIONS ANSWERED. AWAITING XR RESULTS, WILL INITIATE MEDS, THEN TRANSFER PT TO ICU 7.
--- NOTE | 2019-04-12 18:06 | NUR ---
PT BLOOD SUGAR NOTED TO BE 149. PT HAS NOT HAD ACCESS AND HAS NOT RECEIVED ANY MEDICATIONS WHILE IN ED. CALLED AND NOTIFIED ELLE SCOTT. CALLED DR. NUÑEZ. NO ANSWER. VOICEMAIL LEFT.
[2019-04-12] MEDS ORDERED: METOCLOPRAMIDE 5 MG/ML, 2ML ONE (18:10)
[2019-04-12] MEDS: SODIUM CHLORIDE 0.9% 1,000 ML IV SCH ×2 (18:21→23:03)
[2019-04-12] MEDS: D5%-0.45NACL+KCL 20MEQ 1,000 ML IV SCH (18:21)
--- NOTE | 2019-04-12 18:21 | NUR ---
UNABLE TO GET AHOLD OF DR. NUÑEZ. SPOKE W/ ERP DR. ATKINS ABOUT PT'S BS CHANGE W/O MEDICATION WHILE IN ED AND BS NOTED TO BE149. PER ERP HOLD OFF ON STARTING INSULIN GTT AND INITIATE D5W-0.45 NACL+KCL 20 MEQ ORDERED AND AWAIT FOR BS TO INCREASE BEFORE INITIATING INSULIN GTT.
[2019-04-12] MEDS: ENOXAPARIN 40 MG/0.4 ML SQ SCH (20:06)
[2019-04-13] MEDS: D5%-0.45NACL+KCL 20MEQ 1,000 ML IV SCH (03:21)
[2019-04-13 05:05] LABS: ALBUMIN 2.5 g/dL (3.4-5.0); ANION GAP 10 mmol/L (5-15); CALCIUM 7.6 mg/dL (8.5-10.1); CHLORIDE 109 mmol/L (98-107)
[2019-04-13 05:09] LABS: ALANINE AMINOTRANSFERASE 32 U/L (12-78); ALKALINE PHOSPHATASE 148 U/L (45-117); BILIRUBIN,TOTAL 0.4 mg/dL (0.2-1.0); CREATININE 1.08 mg/dL (0.55-1.02); TOTAL PROTEIN 5.5 g/dL (6.4-8.2)
[2019-04-13 05:10] LABS: MEAN CORPUSCULAR HEMOGLOBIN 31.1 pg (27.0-34.8); MEAN CORPUSCULAR HGB CONC 32.5 g/dL (32.4-35.8); MEAN CORPUSCULAR VOLUME 95.6 fL (80-100); MEAN PLATELET VOLUME 7.1 fL (7.4-10.4); PLATELET COUNT 353 x10^3/uL (130-400); RED BLOOD COUNT 2.73 x10^6/uL (3.82-5.3); RED CELL DISTRIBUTION WIDTH 16.7 % (9.6-15.2)
[2019-04-13 05:43] LABS: MD YES
[2019-04-13 05:47] LABS: <PLATELET ESTIMATE> ADEQUATE; <PLT MORPHOLOGY> NORMAL PLT MORPH; ANISOCYTOSIS 1+; BASOS#(MANUAL) 0.06 x10^3/uL (0-0.1); BASOS% (MANUAL) 2 % (0-1); LYMPHS% (MANUAL) 53 % (22-44); MONOS#(MANUAL) 0.13 x10^3/uL (0.3-2.7); MONOS% (MANUAL) 4 % (2-9); SEG#(MANUAL) 1.31 x10^3/uL (1.8-6.8); SEGS% (MANUAL) 41 % (42-75)
[2019-04-13] MEDS: SENNA/DOCUSATE TABLET PO SCH (07:51)
[2019-04-13 09:32] LABS: ALANINE AMINOTRANSFERASE 27 U/L (12-78); ALBUMIN 2.4 g/dL (3.4-5.0); ANION GAP 12 mmol/L (5-15); CALCIUM 7.4 mg/dL (8.5-10.1); CHLORIDE 106 mmol/L (98-107); CREATININE 0.99 mg/dL (0.55-1.02)
[2019-04-13 09:34] LABS: ALKALINE PHOSPHATASE 142 U/L (45-117); BILIRUBIN,TOTAL 0.3 mg/dL (0.2-1.0); TOTAL PROTEIN 5.3 g/dL (6.4-8.2)
[2019-04-13] MEDS ORDERED: SODIUM CHLORIDE 0.9% 1,000 ML IV SCH (10:30)
[2019-04-13] MEDS ORDERED: INSULIN GLARGINE 100 UNITS/ML, PEN SQ-INSULIN SCH (10:30)
[2019-04-13] MEDS ORDERED: DEXTROSE 50%, 50ML SYRINGE IVPush PRN (10:30)
[2019-04-13] MEDS ORDERED: GLUCAGON 1 MG IM PRN (10:30)
[2019-04-13] MEDS ORDERED: DEXTROSE 4 GM TAB.CHEW PO PRN (10:30)
[2019-04-13] MEDS: INSULIN LISPRO 100 UNITS/ML, PEN SQ-INSULIN SCH ×3 (11:00→21:00)
[2019-04-13 15:00] VITALS: BP 103/61
[2019-04-13] MEDS ORDERED: D5%-0.45NACL+KCL 20MEQ 1,000 ML IV SCH (16:23)
[2019-04-13] MEDS ORDERED: REGULAR INSULIN 62.5 UNITS in SODIUM CHLORIDE 0.9% 249.375 ML IV PRN (16:30)
[2019-04-13] MEDS ORDERED: INSULIN LISPRO 100 UNIT/ML, 3ML VIAL SQ-INSULIN ONE ×2 (16:30→19:30)
[2019-04-13] MEDS ORDERED: INSULIN LISPRO 100 UNITS/ML, PEN SQ-INSULIN ONE ×3 (16:30→20:00)
[2019-04-13 19:17] LABS: CALCIUM 7.3 mg/dL (8.5-10.1); CREATININE 1.43 mg/dL (0.55-1.02)
[2019-04-13 19:24] LABS: CHLORIDE 99 mmol/L (98-107)
[2019-04-13 19:27] LABS: ANION GAP 17 mmol/L (5-15)
[2019-04-13] MEDS ORDERED: INSULIN REGULAR 100 UNITS/ML, 3ML VIAL SQ-INSULIN ONE (19:30)
[2019-04-13 20:23] VITALS: BP 103/68
[2019-04-13] MEDS: SODIUM CHLORIDE 0.9% 1,000 ML IV SCH (21:27)
[2019-04-13] MEDS: ENOXAPARIN 40 MG/0.4 ML SQ SCH (21:27)
[2019-04-13] MEDS: SODIUM CHLORIDE FLUSH 10ML SYR IVF SCH (21:27)
[2019-04-13] MEDS: INSULIN GLARGINE 100 UNITS/ML, PEN SQ-INSULIN SCH (21:28)
[2019-04-14] MEDS: SODIUM CHLORIDE 0.9% 1,000 ML IV SCH ×2 (01:56→07:42)
[2019-04-14 02:11] VITALS: BP 99/62
[2019-04-14 05:05] LABS: MEAN CORPUSCULAR HEMOGLOBIN 31.2 pg (27.0-34.8); MEAN CORPUSCULAR VOLUME 94.4 fL (80-100); MEAN PLATELET VOLUME 7.1 fL (7.4-10.4); PLATELET COUNT 285 x10^3/uL (130-400); RED CELL DISTRIBUTION WIDTH 16.7 % (9.6-15.2)
[2019-04-14 05:13] LABS: ALANINE AMINOTRANSFERASE 49 U/L (12-78); ALBUMIN 2.3 g/dL (3.4-5.0); ANION GAP 7 mmol/L (5-15); CALCIUM 7.6 mg/dL (8.5-10.1); CHLORIDE 113 mmol/L (98-107)
[2019-04-14 05:16] LABS: ALKALINE PHOSPHATASE 215 U/L (45-117); BILIRUBIN,TOTAL 0.8 mg/dL (0.2-1.0); TOTAL PROTEIN 5.2 g/dL (6.4-8.2)
[2019-04-14 05:29] LABS: MD YES
[2019-04-14 05:37] LABS: <PLATELET ESTIMATE> ADEQUATE; <PLT MORPHOLOGY> NORMAL PLT MORPH; ANISOCYTOSIS 1+; BAND#(MANUAL) 0.03 x10^3/uL; BANDS%(MANUAL) 1 % (0-7); BASOS#(MANUAL) 0.03 x10^3/uL (0-0.1); BASOS% (MANUAL) 1 % (0-1); EOS#(MANUAL) 0.03 x10^3/uL (0.0-0.4); EOS% (MANUAL) 1 % (1-7); LYMPH#(MANUAL) 1.54 x10^3/uL (1-3.4); LYMPHS% (MANUAL) 55 % (22-44); METAMYELOCYTES# (MANUAL) 0.06 x10^3/uL (0-0); METAMYELOCYTES% (MANUAL) 2 % (0-1); MONOS#(MANUAL) 0.11 x10^3/uL (0.3-2.7); MONOS% (MANUAL) 4 % (2-9); REACTIVE LYMPHS # (MANUAL) 0.03 x10^3/uL (0-0); REACTIVE LYMPHS % (MANUAL) 1 % (0-0); SEG#(MANUAL) 0.98 x10^3/uL (1.8-6.8); SEGS% (MANUAL) 35 % (42-75)
[2019-04-14] MEDS: INSULIN LISPRO 100 UNITS/ML, PEN SQ-INSULIN SCH ×4 (07:43→21:28)
[2019-04-14 08:14] VITALS: BP 125/85
[2019-04-14] MEDS: SENNA/DOCUSATE TABLET PO SCH (09:03)
[2019-04-14] MEDS: SODIUM CHLORIDE FLUSH 10ML SYR IVF SCH ×2 (09:03→21:29)
[2019-04-14] MEDS: INSULIN GLARGINE 100 UNITS/ML, PEN SQ-INSULIN SCH ×2 (09:05→21:28)
[2019-04-14 13:50] VITALS: BP 118/60
[2019-04-14] MEDS ORDERED: SODIUM CHLORIDE 0.9% 1,000 ML IV SCH (18:00)
[2019-04-14 19:14] VITALS: BP 128/85
[2019-04-14] MEDS: ENOXAPARIN 40 MG/0.4 ML SQ SCH (21:29)
[2019-04-15 01:18] VITALS: BP 101/67
[2019-04-15 05:43] LABS: MEAN CORPUSCULAR HEMOGLOBIN 31.3 pg (27.0-34.8); MEAN CORPUSCULAR HGB CONC 32.9 g/dL (32.4-35.8); MEAN PLATELET VOLUME 7.3 fL (7.4-10.4); PLATELET COUNT 280 x10^3/uL (130-400); RED BLOOD COUNT 2.65 x10^6/uL (3.82-5.3); RED CELL DISTRIBUTION WIDTH 16.1 % (9.6-15.2)
[2019-04-15 05:48] LABS: ALANINE AMINOTRANSFERASE 46 U/L (12-78); ALBUMIN 2.3 g/dL (3.4-5.0); ANION GAP 7 mmol/L (5-15); CALCIUM 7.7 mg/dL (8.5-10.1); CHLORIDE 113 mmol/L (98-107); CREATININE 0.67 mg/dL (0.55-1.02)
[2019-04-15 05:50] LABS: ALKALINE PHOSPHATASE 190 U/L (45-117); BILIRUBIN,TOTAL 0.2 mg/dL (0.2-1.0); TOTAL PROTEIN 5.4 g/dL (6.4-8.2)
[2019-04-15 06:08] LABS: BASOPHILS # (AUTO) 0.04 x10^3/uL (0-0.1); BASOPHILS % (AUTO) 1 % (0-1); EOSINOPHILS # (AUTO) 0.05 x10^3/uL (0-0.4); EOSINOPHILS % (AUTO) 2 % (1-7); LYMPHOCYTES # (AUTO) 1.71 x10^3/uL (1-3.4); LYMPHOCYTES % (AUTO) 59 % (22-44); MD SCAN; MONOCYTES # (AUTO) 0.23 x10^3/uL (0.2-0.8); MONOCYTES % (AUTO) 8 % (2-9); NEUTROPHILS # (AUTO) 0.87 x10^3/uL (1.8-6.8); NEUTROPHILS % (AUTO) 30 % (42-75)
[2019-04-15 07:36] VITALS: BP 106/69
[2019-04-15] MEDS: INSULIN GLARGINE 100 UNITS/ML, PEN SQ-INSULIN SCH (08:01)
[2019-04-15] MEDS: INSULIN LISPRO 100 UNITS/ML, PEN SQ-INSULIN SCH ×2 (08:02→12:09)
[2019-04-15] MEDS: SODIUM CHLORIDE FLUSH 10ML SYR IVF SCH (08:03)
[2019-04-15] MEDS: SENNA/DOCUSATE TABLET PO SCH (08:03)
[2019-04-15] MEDS ORDERED: INSULIN GLARGINE 100 UNITS/ML, PEN SQ-INSULIN SCH ×4 (09:00→21:00)
[2019-04-15] MEDS ORDERED: INSU100I11 SQ-INSULIN (11:36)
[2019-04-15] MEDS ORDERED: INSU100I13 SQ-INSULIN ×2 (11:36)
[2019-04-15 14:14] VITALS: BP 135/90
== END 2019-04-15 14:40 | disposition home or self-care (01) | DRG 420 ==
LOC: ED 16:22 → EDIP 16:23 → ED 16:30 → ICU 18:26 → 3N 04-13 14:36 → DCLOUNGE 04-15 14:37
PROVIDERS: ADMIT Internal Medicine; ATTEND Internal Medicine
PROC: 02HV33Z Insertion of Infusion Device into Superior Vena Cava, Percutaneous Approach (ICD-10-PCS; principal; 2019-04-12)
PROC: B548ZZA Ultrasonography of Superior Vena Cava, Guidance (ICD-10-PCS; 2019-04-12)
PROC: 0T9B70Z Drainage of Bladder with Drainage Device, Via Natural or Artificial Opening (ICD-10-PCS; 2019-04-12)
DX: E10.10 Type 1 diabetes mellitus with ketoacidosis without coma (principal); N17.0 Acute kidney failure with tubular necrosis; D63.8 Anemia in other chronic diseases classified elsewhere; K31.84 Gastroparesis; E10.43 Type 1 diabetes mellitus with diabetic autonomic (poly)neuropathy; E55.9 Vitamin D deficiency, unspecified; E78.5 Hyperlipidemia, unspecified; R94.5 Abnormal results of liver function studies; I10 Essential (primary) hypertension; Z82.0 Family history of epilepsy and other diseases of the nervous system; Z83.3 Family history of diabetes mellitus; Z91.19 Patient's noncompliance with other medical treatment and regimen; Z79.4 Long term (current) use of insulin
CPT/HCPCS: 36556; 36600; 71045; 80048; 80053; 81003; 82010; 82803; 82947; 82962; 83605; 83690; 83735; 83880; 84100; 85025; 87081; 93005; G0378; J1650; J1815; J2765; J3480; J7030

== ENCOUNTER 2019-04-18 10:38 | Inpatient (IN) | payer MEDICAID ==
[~2019-04-18] VITALS: Ht 165.1 cm; Wt 75.2 kg
--- NOTE | 2019-04-18 11:14 | NUR ---
PT BIB EMS FOR HIGH BLOOD SUGAR. N/V. PT GAVE SELF 20 U OF HUMALOG. PT A&0X4. PT NOT IN DISTRESS. EMS UNABLE TO GET IV, PT HAD DIFFICULT ACCESS.
[2019-04-18 11:37] LABS: PH, VENOUS 7.057 pH (7.320-7.420)
[2019-04-18 11:38] LABS: O2 FLOW RA L/min
[2019-04-18 11:46] LABS: ANION GAP 32 mmol/L (5-15); CALCIUM 10.1 mg/dL (8.5-10.1); CHLORIDE 93 mmol/L (98-107); CREATININE 2.51 mg/dL (0.55-1.02)
[2019-04-18] MEDS ORDERED: SODIUM CHLORIDE 0.9% 1,000ML IVBOLUS ONE ×3 (12:00→16:00)
[2019-04-18 12:05] LABS: ACETONE, SERUM Large (80mg/dL) mg/dL (Negative)
[2019-04-18] MEDS ORDERED: REGULAR INSULIN 100 UNITS in SODIUM CHLORIDE 0.9% 99 ML IV PRN ×2 (12:16→14:00)
[2019-04-18] MEDS ORDERED: SODIUM CHLORIDE 0.9% 1,000 ML IV ONE (12:24)
[2019-04-18] MEDS ORDERED: SODIUM CHLORIDE FLUSH 10ML SYR IVF PRN (12:30)
[2019-04-18 12:33] LABS: MICROSCOPIC NOT IND
[2019-04-18 12:34] LABS: BASOPHILS # (AUTO) 0.05 x10^3/uL (0-0.1); BASOPHILS % (AUTO) 1 % (0-1); EOSINOPHILS % (AUTO) 0 % (1-7); LYMPHOCYTES # (AUTO) 1.41 x10^3/uL (1-3.4); LYMPHOCYTES % (AUTO) 14 % (22-44); MD SCAN; MEAN CORPUSCULAR HEMOGLOBIN 30.3 pg (27.0-34.8); MEAN CORPUSCULAR HGB CONC 30.3 g/dL (32.4-35.8); MEAN PLATELET VOLUME 8.9 fL (7.4-10.4); MONOCYTES # (AUTO) 0.41 x10^3/uL (0.2-0.8); MONOCYTES % (AUTO) 4 % (2-9); NEUTROPHILS # (AUTO) 8.41 x10^3/uL (1.8-6.8); NEUTROPHILS % (AUTO) 82 % (42-75); PLATELET COUNT 566 x10^3/uL (130-400); RED BLOOD COUNT 4.14 x10^6/uL (3.82-5.3); RED CELL DISTRIBUTION WIDTH 16.7 % (9.6-15.2)
[2019-04-18 12:40] LABS: CULTURE INDICATED? NO
--- NOTE | 2019-04-18 13:03 | NUR ---
IVS ESTABLISHED, FLUIDS INFUSING. INSULIN GTT STARTED PER PROTOCOL
[2019-04-18] MEDS ORDERED: SODIUM CHLORIDE 0.9% 1,000 ML IV SCH (13:40)
[2019-04-18] MEDS ORDERED: BISACODYL 10 MG SUPP PR PRN (14:00)
[2019-04-18] MEDS ORDERED: ACETAMINOPHEN 325 MG TABLET PO PRN (14:00)
[2019-04-18] MEDS ORDERED: POLYETHYLENE GLYCOL 17 GM PACKET PO PRN (14:00)
[2019-04-18] MEDS ORDERED: ONDANSETRON 2MG/ML, 2ML IVPush PRN (14:00)
[2019-04-18] MEDS ORDERED: DOCUSATE 100 MG CAPSULE PO PRN (14:00)
[2019-04-18] MEDS ORDERED: HEPARIN 5,000 UNITS/ML, 1ML SQ SCH (14:00)
--- NOTE | 2019-04-18 14:00 | NUR ---
LUNCH RN: BS CHECKED SHOWING A DROP TO 414. DR PRESCOTT AT BEDSIDE, VERBAL INSTRUCTIONS TO DROP DRIP TO 5UNITS/HR. NOTED DECREASE IN BP. MD AWARE, NO FURTHER ORDERS AT THIS TIME
--- NOTE | 2019-04-18 14:22 | NUR ---
READ TO GO, REPORT TO FAITH.
[2019-04-18 14:49] LABS: ANION GAP 25 mmol/L (5-15); CALCIUM 8.2 mg/dL (8.5-10.1); CHLORIDE 102 mmol/L (98-107)
[2019-04-18 14:50] LABS: CREATININE 1.98 mg/dL (0.55-1.02)
[2019-04-18] MEDS ORDERED: HYDROCORTISONE 100 MG INJ. ONE (15:48)
[2019-04-18] MEDS: HYDROCORTISONE 100 MG INJ. IVPush SCH ×2 (16:02→22:27)
[2019-04-18] MEDS: POTASSIUM CHLORIDE 10 MEQ in D5%-0.45% NACL 1,000 ML IV SCH (16:25)
[2019-04-18 18:47] LABS: ANION GAP 14 mmol/L (5-15); CALCIUM 7.8 mg/dL (8.5-10.1); CHLORIDE 102 mmol/L (98-107)
[2019-04-18 22:49] LABS: ANION GAP 12 mmol/L (5-15); CALCIUM 7.6 mg/dL (8.5-10.1); CHLORIDE 102 mmol/L (98-107); CREATININE 1.23 mg/dL (0.55-1.02)
[2019-04-19] MEDS: POTASSIUM CHLORIDE 10 MEQ in D5%-0.45% NACL 1,000 ML IV SCH ×2 (00:44→11:23)
[2019-04-19] MEDS: HEPARIN 5,000 UNITS/ML, 1ML SQ SCH ×3 (00:44→16:24)
[2019-04-19 02:05] LABS: ANION GAP 11 mmol/L (5-15); CALCIUM 7.6 mg/dL (8.5-10.1); CHLORIDE 104 mmol/L (98-107)
[2019-04-19 04:00] VITALS: BP 110/62
[2019-04-19] MEDS: HYDROCORTISONE 100 MG INJ. IVPush SCH (04:50)
[2019-04-19 06:51] LABS: ANION GAP 8 mmol/L (5-15); CALCIUM 8.5 mg/dL (8.5-10.1); CHLORIDE 103 mmol/L (98-107); CREATININE 1.19 mg/dL (0.55-1.02)
[2019-04-19] MEDS: SODIUM CHLORIDE FLUSH 10ML SYR IVF SCH ×2 (09:00→21:24)
[2019-04-19] MEDS ORDERED: GLUCAGON 1 MG IM PRN (09:00)
[2019-04-19] MEDS ORDERED: DEXTROSE 4 GM TAB.CHEW PO PRN (09:00)
[2019-04-19] MEDS ORDERED: DEXTROSE 50%, 50ML SYRINGE IVPush PRN (09:00)
[2019-04-19] MEDS ORDERED: INSULIN GLARGINE 100 UNITS/ML, PEN SQ-INSULIN ONE (09:00)
[2019-04-19] MEDS: SODIUM CHLORIDE 0.9% 1,000 ML IV SCH ×3 (09:25→23:53)
[2019-04-19] MEDS: INSULIN GLARGINE 100 UNITS/ML, PEN SQ-INSULIN SCH ×2 (09:26→21:23)
[2019-04-19] MEDS ORDERED: HYDROCORTISONE 100 MG INJ. IVPush SCH (10:30)
[2019-04-19] MEDS: INSULIN LISPRO 100 UNITS/ML, PEN SQ-INSULIN SCH ×3 (11:48→21:23)
[2019-04-19 12:13] VITALS: BP 128/83
[2019-04-19 18:44] VITALS: BP 116/70
[2019-04-20 00:47] VITALS: BP_SYST 109; BP_SYST 99; BP_DIAS 63; BP_DIAS 70
[2019-04-20] MEDS: HEPARIN 5,000 UNITS/ML, 1ML SQ SCH ×3 (01:00→11:20)
[2019-04-20 06:07] LABS: CHLORIDE 111 mmol/L (98-107)
[2019-04-20 06:14] LABS: ALANINE AMINOTRANSFERASE 46 U/L (12-78); ALBUMIN 2.6 g/dL (3.4-5.0); ALKALINE PHOSPHATASE 190 U/L (45-117); ANION GAP 8 mmol/L (5-15); BILIRUBIN,TOTAL 0.4 mg/dL (0.2-1.0); CALCIUM 7.7 mg/dL (8.5-10.1); CREATININE 0.89 mg/dL (0.55-1.02); TOTAL PROTEIN 6.4 g/dL (6.4-8.2)
[2019-04-20 06:53] LABS: BASOPHILS # (AUTO) 0.03 x10^3/uL (0-0.1); BASOPHILS % (AUTO) 1 % (0-1); EOSINOPHILS # (AUTO) 0.06 x10^3/uL (0-0.4); EOSINOPHILS % (AUTO) 1 % (1-7); LYMPHOCYTES # (AUTO) 1.95 x10^3/uL (1-3.4); LYMPHOCYTES % (AUTO) 46 % (22-44); MD NO; MEAN CORPUSCULAR HGB CONC 31.5 g/dL (32.4-35.8); MEAN PLATELET VOLUME 7.3 fL (7.4-10.4); MONOCYTES # (AUTO) 0.36 x10^3/uL (0.2-0.8); MONOCYTES % (AUTO) 8 % (2-9); NEUTROPHILS % (AUTO) 44 % (42-75); PLATELET COUNT 311 x10^3/uL (130-400); RED BLOOD COUNT 2.81 x10^6/uL (3.82-5.3); RED CELL DISTRIBUTION WIDTH 16.3 % (9.6-15.2)
[2019-04-20 07:28] VITALS: BP 117/80
[2019-04-20] MEDS: INSULIN GLARGINE 100 UNITS/ML, PEN SQ-INSULIN SCH ×2 (08:07→20:57)
[2019-04-20] MEDS: INSULIN LISPRO 100 UNITS/ML, PEN SQ-INSULIN SCH ×4 (08:07→20:57)
[2019-04-20] MEDS: SODIUM CHLORIDE FLUSH 10ML SYR IVF SCH ×2 (08:07→20:58)
[2019-04-20 15:23] VITALS: BP 121/80
[2019-04-20 19:18] VITALS: BP 132/91
[2019-04-21] MEDS: HEPARIN 5,000 UNITS/ML, 1ML SQ SCH ×2 (01:00→08:17)
[2019-04-21 01:59] VITALS: BP 109/68
[2019-04-21] MEDS: INSULIN LISPRO 100 UNITS/ML, PEN SQ-INSULIN SCH ×2 (08:16→11:20)
[2019-04-21] MEDS: SODIUM CHLORIDE FLUSH 10ML SYR IVF SCH (08:17)
[2019-04-21] MEDS: INSULIN GLARGINE 100 UNITS/ML, PEN SQ-INSULIN SCH (08:17)
[2019-04-21 08:48] VITALS: BP 136/101
== END 2019-04-21 14:22 | disposition home or self-care (01) | DRG 420 ==
LOC: ED 12:05 → EDIP 12:33 → CCU 14:55 → 3N 04-19 11:58 → DCLOUNGE 04-21 14:18
PROVIDERS: ADMIT Emergency Medicine; ATTEND Internal Medicine
DX: E10.10 Type 1 diabetes mellitus with ketoacidosis without coma (principal); N17.0 Acute kidney failure with tubular necrosis; E44.0 Moderate protein-calorie malnutrition; R78.81 Bacteremia; K31.84 Gastroparesis; D63.8 Anemia in other chronic diseases classified elsewhere; E10.43 Type 1 diabetes mellitus with diabetic autonomic (poly)neuropathy; E87.1 Hypo-osmolality and hyponatremia; E55.9 Vitamin D deficiency, unspecified; E78.5 Hyperlipidemia, unspecified; E86.0 Dehydration; I10 Essential (primary) hypertension; Z68.27 Body mass index [BMI] 27.0-27.9, adult; Z59.0 Homelessness; Z82.0 Family history of epilepsy and other diseases of the nervous system; Z83.3 Family history of diabetes mellitus; Z91.040 Latex allergy status; Z91.19 Patient's noncompliance with other medical treatment and regimen; Z79.4 Long term (current) use of insulin
CPT/HCPCS: 36415; 80048; 80053; 81003; 82010; 82040; 82533; 82803; 82962; 83735; 84100; 84702; 85025; 87081; 96361; 96374; G0378; J3480; J1720; J1815; J7030

== ENCOUNTER 2019-04-24 11:28 | Inpatient (IN) | payer MEDICAID ==
[~2019-04-24] VITALS: Ht 165.1 cm; Wt 76.9 kg
--- NOTE | 2019-04-24 11:43 | NUR ---
PT AMBULATED TO ROOM WITH A STEADY GAIT. CHANGED INTO A HOSPITAL GOWN. IN WITH C/O NAUSEA X1 AT PCP AND "HI" FSBS. REFERRED BY PCP.
[2019-04-24] MEDS ORDERED: SODIUM CHLORIDE 0.9% 1,000ML IVBOLUS ONE ×2 (12:00→14:00)
[2019-04-24] MEDS ORDERED: SODIUM CHLORIDE FLUSH 10ML SYR IVF ONE (12:00)
[2019-04-24 12:17] LABS: PH, VENOUS 7.344 pH (7.320-7.420)
[2019-04-24 12:22] LABS: BASOPHILS # (AUTO) 0.03 x10^3/uL (0-0.1); BASOPHILS % (AUTO) 1 % (0-1); EOSINOPHILS # (AUTO) 0.02 x10^3/uL (0-0.4); EOSINOPHILS % (AUTO) 0 % (1-7); LYMPHOCYTES # (AUTO) 1.31 x10^3/uL (1-3.4); LYMPHOCYTES % (AUTO) 22 % (22-44); MD NO; MEAN CORPUSCULAR HEMOGLOBIN 29.8 pg (27.0-34.8); MEAN CORPUSCULAR HGB CONC 31.5 g/dL (32.4-35.8); MEAN CORPUSCULAR VOLUME 94.7 fL (80-100); MEAN PLATELET VOLUME 8.4 fL (7.4-10.4); MONOCYTES # (AUTO) 0.29 x10^3/uL (0.2-0.8); MONOCYTES % (AUTO) 5 % (2-9); NEUTROPHILS # (AUTO) 4.24 x10^3/uL (1.8-6.8); NEUTROPHILS % (AUTO) 72 % (42-75); PLATELET COUNT 389 x10^3/uL (130-400); RED BLOOD COUNT 3.45 x10^6/uL (3.82-5.3); RED CELL DISTRIBUTION WIDTH 16.3 % (9.6-15.2)
[2019-04-24 12:30] LABS: ALANINE AMINOTRANSFERASE 37 U/L (12-78); ALBUMIN 3.4 g/dL (3.4-5.0); ANION GAP 16 mmol/L (5-15); CALCIUM 9.3 mg/dL (8.5-10.1); CHLORIDE 89 mmol/L (98-107)
[2019-04-24 12:33] LABS: ALKALINE PHOSPHATASE 258 U/L (45-117); BILIRUBIN,TOTAL 1.1 mg/dL (0.2-1.0); CREATININE 1.28 mg/dL (0.55-1.02); TOTAL PROTEIN 7.6 g/dL (6.4-8.2)
[2019-04-24 12:52] LABS: ACETONE, SERUM Large (80mg/dL) mg/dL (Negative)
--- NOTE | 2019-04-24 13:03 | NUR ---
pt up to the bathroom to void. UA sample obtained and sent to lab. Medicated per Emar
[2019-04-24] MEDS ORDERED: INSULIN REGULAR 100 UNITS/ML, 3ML VIAL IVPush ONE (14:00)
[2019-04-24 14:03] LABS: HCG UR SG 1.031 (1.003-1.030); MICROSCOPIC NOT IND
[2019-04-24 14:10] LABS: CULTURE INDICATED? NO
[2019-04-24] MEDS ORDERED: INSULIN LISPRO SINGLE DOSE, ER SQ-INSULIN ONE (14:10)
--- NOTE | 2019-04-24 15:01 | NUR ---
Dr. Doss at bedside.
[2019-04-24] MEDS ORDERED: DOCUSATE 100 MG CAPSULE PO PRN (15:30)
[2019-04-24] MEDS ORDERED: GLUCAGON 1 MG IM PRN (15:30)
[2019-04-24] MEDS ORDERED: DEXTROSE 4 GM TAB.CHEW PO PRN (15:30)
[2019-04-24] MEDS: ENOXAPARIN 40 MG/0.4 ML SQ SCH (15:30)
[2019-04-24] MEDS ORDERED: PROMETHAZINE 25 MG/ML, 1ML IM PRN (15:30)
[2019-04-24] MEDS ORDERED: POLYETHYLENE GLYCOL 17 GM PACKET PO PRN (15:30)
[2019-04-24] MEDS ORDERED: ONDANSETRON 2MG/ML, 2ML IVPush PRN (15:30)
[2019-04-24] MEDS ORDERED: ACETAMINOPHEN 325 MG TABLET PO PRN (15:30)
[2019-04-24] MEDS ORDERED: BISACODYL 10 MG SUPP PR PRN (15:30)
[2019-04-24] MEDS ORDERED: DEXTROSE 50%, 50ML SYRINGE IVPush PRN (15:30)
[2019-04-24 15:31] LABS: ANION GAP 18 mmol/L (5-15); CALCIUM 8.2 mg/dL (8.5-10.1); CHLORIDE 102 mmol/L (98-107); CREATININE 1.33 mg/dL (0.55-1.02)
[2019-04-24 15:39] LABS: AMPHETAMINE SCREEN, URINE Negative (Negative); BARBITURATE SCREEN, URINE Negative (Negative); BENZODIAZEPINE SCREEN, URINE Negative (Negative); CANNABINOID SCREEN, URINE Negative (Negative); COCAINE SCREEN, URINE Negative (Negative); METHADONE SCREEN, URINE Negative (Negative); OPIATE SCREEN, URINE Negative (Negative)
[2019-04-24 15:53] VITALS: BP 122/85
[2019-04-24 17:30] LABS: ANION GAP 16 mmol/L (5-15); CALCIUM 8.5 mg/dL (8.5-10.1); CHLORIDE 102 mmol/L (98-107); CREATININE 1.14 mg/dL (0.55-1.02)
[2019-04-24] MEDS: SODIUM CHLORIDE 0.9% 1,000 ML IV SCH (17:32)
[2019-04-24] MEDS: INSULIN LISPRO 100 UNITS/ML, PEN SQ-INSULIN SCH ×2 (17:32→21:08)
[2019-04-24 18:54] VITALS: BP 124/83
[2019-04-24] MEDS ORDERED: INSULIN GLARGINE 100 UNITS/ML, PEN SQ-INSULIN SCH (21:00)
[2019-04-24] MEDS: INSULIN GLARGINE 100 UNITS/ML, PEN SQ-INSULIN SCH (21:09)
[2019-04-24] MEDS: SODIUM CHLORIDE FLUSH 10ML SYR IVF SCH (21:10)
[2019-04-24 23:05] LABS: ANION GAP 9 mmol/L (5-15); CALCIUM 8.2 mg/dL (8.5-10.1); CHLORIDE 99 mmol/L (98-107); CREATININE 1.06 mg/dL (0.55-1.02)
[2019-04-25 01:18] VITALS: BP 111/70
[2019-04-25] MEDS: SODIUM CHLORIDE 0.9% 1,000 ML IV SCH ×3 (01:53→19:31)
[2019-04-25 06:42] LABS: MEAN CORPUSCULAR HEMOGLOBIN 30.4 pg (27.0-34.8); MEAN CORPUSCULAR HGB CONC 32.6 g/dL (32.4-35.8); MEAN CORPUSCULAR VOLUME 93.1 fL (80-100); MEAN PLATELET VOLUME 7.8 fL (7.4-10.4); PLATELET COUNT 358 x10^3/uL (130-400); RED BLOOD COUNT 3.04 x10^6/uL (3.82-5.3); RED CELL DISTRIBUTION WIDTH 16.5 % (9.6-15.2)
[2019-04-25 06:50] LABS: ALANINE AMINOTRANSFERASE 30 U/L (12-78); ALBUMIN 2.7 g/dL (3.4-5.0); ANION GAP 7 mmol/L (5-15); CALCIUM 7.9 mg/dL (8.5-10.1); CHLORIDE 109 mmol/L (98-107); CREATININE 0.81 mg/dL (0.55-1.02)
[2019-04-25 06:52] LABS: ALKALINE PHOSPHATASE 160 U/L (45-117); BILIRUBIN,TOTAL 0.3 mg/dL (0.2-1.0); TOTAL PROTEIN 6.2 g/dL (6.4-8.2)
[2019-04-25] MEDS: INSULIN LISPRO 100 UNITS/ML, PEN SQ-INSULIN SCH ×4 (07:07→20:24)
[2019-04-25 07:22] LABS: MD YES
[2019-04-25 07:24] LABS: ANISOCYTOSIS 1+; BASOS#(MANUAL) 0.04 x10^3/uL (0-0.1); BASOS% (MANUAL) 1 % (0-1); EOS#(MANUAL) 0.19 x10^3/uL (0.0-0.4); EOS% (MANUAL) 5 % (1-7); LYMPH#(MANUAL) 1.89 x10^3/uL (1-3.4); LYMPHS% (MANUAL) 51 % (22-44); MONOS#(MANUAL) 0.26 x10^3/uL (0.3-2.7); MONOS% (MANUAL) 7 % (2-9); POLYCHROMASIA 1+; SEG#(MANUAL) 1.33 x10^3/uL (1.8-6.8); SEGS% (MANUAL) 36 % (42-75)
[2019-04-25 07:25] LABS: <PLATELET ESTIMATE> ADEQUATE; <PLT MORPHOLOGY> NORMAL PLT MORPH
[2019-04-25 07:54] VITALS: BP 104/70
[2019-04-25] MEDS: INSULIN GLARGINE 100 UNITS/ML, PEN SQ-INSULIN SCH ×2 (08:06→20:24)
[2019-04-25] MEDS: SODIUM CHLORIDE FLUSH 10ML SYR IVF SCH ×2 (08:07→20:24)
[2019-04-25 13:00] LABS: ANION GAP 9 mmol/L (5-15); CALCIUM 8.1 mg/dL (8.5-10.1); CHLORIDE 96 mmol/L (98-107); CREATININE 1.04 mg/dL (0.55-1.02)
[2019-04-25 13:30] LABS: ACETONE, SERUM Small (20mg/dL) mg/dL (Negative)
[2019-04-25 14:14] VITALS: BP 104/68
[2019-04-25] MEDS ORDERED: INSULIN REGULAR 100 UNITS/ML, 3ML VIAL IVPush ONE (14:30)
[2019-04-25] MEDS: ENOXAPARIN 40 MG/0.4 ML SQ SCH (15:30)
[2019-04-25 19:42] VITALS: BP 111/78
[2019-04-26] MEDS: SODIUM CHLORIDE 0.9% 1,000 ML IV SCH ×2 (01:54→07:52)
[2019-04-26 02:20] VITALS: BP 110/79
[2019-04-26 05:56] LABS: ANION GAP 11 mmol/L (5-15); CALCIUM 7.9 mg/dL (8.5-10.1); CHLORIDE 110 mmol/L (98-107); CREATININE 0.94 mg/dL (0.55-1.02)
[2019-04-26] MEDS: INSULIN LISPRO 100 UNITS/ML, PEN SQ-INSULIN SCH ×2 (07:52→12:04)
[2019-04-26] MEDS: INSULIN GLARGINE 100 UNITS/ML, PEN SQ-INSULIN SCH (07:52)
[2019-04-26] MEDS: SODIUM CHLORIDE FLUSH 10ML SYR IVF SCH (07:53)
[2019-04-26 08:12] VITALS: BP 117/80
[2019-04-26 13:25] LABS: ANION GAP 11 mmol/L (5-15); CALCIUM 8.1 mg/dL (8.5-10.1); CHLORIDE 106 mmol/L (98-107); CREATININE 0.86 mg/dL (0.55-1.02)
[2019-04-26 13:42] VITALS: BP 107/71
[2019-04-26] MEDS ORDERED: LACTATED RINGERS 1,000 ML IV SCH (14:30)
== END 2019-04-26 15:00 | disposition left against medical advice (07) | DRG 48 ==
LOC: ED 13:41 → EDIP 13:45 → 3N 15:47
PROVIDERS: ADMIT Internal Medicine; ATTEND Internal Medicine
DX: E10.43 Type 1 diabetes mellitus with diabetic autonomic (poly)neuropathy (principal); N17.0 Acute kidney failure with tubular necrosis; E10.21 Type 1 diabetes mellitus with diabetic nephropathy; K31.84 Gastroparesis; Z53.29 Procedure and treatment not carried out because of patient's decision for other reasons; D63.8 Anemia in other chronic diseases classified elsewhere; E78.5 Hyperlipidemia, unspecified; E55.9 Vitamin D deficiency, unspecified; E86.0 Dehydration; E87.6 Hypokalemia; I10 Essential (primary) hypertension; Z79.4 Long term (current) use of insulin; Z82.0 Family history of epilepsy and other diseases of the nervous system; Z83.3 Family history of diabetes mellitus; Z91.19 Patient's noncompliance with other medical treatment and regimen; E87.1 Hypo-osmolality and hyponatremia
CPT/HCPCS: 36415; 80048; 80053; 80307; 81003; 81025; 82010; 82803; 82962; 83690; 83735; 84100; 85025; 96374; G0378; J1815; J7030

== ENCOUNTER 2019-04-29 09:56 | Inpatient (IN) | payer MEDICAID ==
[~2019-04-29] VITALS: Ht 165.1 cm; Wt 77.8 kg
--- NOTE | 2019-04-29 10:00 | NUR ---
PT ARRIVED VIA EMS. PER REPORT PT WITH C/O DIZZINESS, NAUSEATED. VOMITING X3. BEGAN APPROX 4-5 AM. PT BLOOD SUGAR WAS CHECKED AT HOME WAS 342 WAS GIVEN AN UNKNOWN AMT OF INSULIN BY HER BOYFRIED. BS PER EMS WAS 202. DR NOEL AT BEDSIDE TO EVAL PT.
[2019-04-29] MEDS ORDERED: SODIUM CHLORIDE 0.9% 1,000 ML IV ONE (10:02)
--- NOTE | 2019-04-29 10:11 | NUR ---
PT UNCOOPERATIVE WITH CARE. REFUSING TO LAY ON BACK "IT HURTS. I DONT CARE" MEDIA CENTER SPECIALIST AT BEDSIDE TO EVAL PT. Addendum: 04/29/19 at 1011 by [facility] SPECIALIST AT BEDSIDE TO DRAW LABS
[2019-04-29 10:26] LABS: PH, VENOUS 7.233 pH (7.320-7.420)
[2019-04-29 10:28] LABS: FIO2 ROOM AIR %
--- NOTE | 2019-04-29 10:28 | NUR ---
DISCUSSED PT UNCOOPERATIVE WITH LAYING ON BACK TO RECHECK BP. BP PT LAYING ON RIGHT SIDE (CUFF ON LEFT) , WITH DR NOEL. RN LOOKED FOR IV ACCESS WITH U/S, NON APPARENT. PT MOVED TO TR03. REPORT TO NASEEM ALMEIDA AND AGNES ALMEIDA.
[2019-04-29] MEDS ORDERED: SODIUM CHLORIDE FLUSH 10ML SYR IVF ONE (10:30)
[2019-04-29] MEDS ORDERED: ONDANSETRON 2MG/ML, 2ML IVPush ONE (10:30)
[2019-04-29] MEDS ORDERED: SODIUM CHLORIDE 0.9% 1,000ML IVBOLUS ONE ×2 (10:30→11:30)
[2019-04-29] MEDS ORDERED: PLEASE ENTER HEIGHT AND WEIGHT MC SCH (10:30)
[2019-04-29 10:31] LABS: MEAN CORPUSCULAR HEMOGLOBIN 29.6 pg (27.0-34.8); MEAN CORPUSCULAR HGB CONC 31.6 g/dL (32.4-35.8); MEAN CORPUSCULAR VOLUME 93.6 fL (80-100); MEAN PLATELET VOLUME 7.9 fL (7.4-10.4); PLATELET COUNT 685 x10^3/uL (130-400); RED BLOOD COUNT 4.43 x10^6/uL (3.82-5.3)
--- NOTE | 2019-04-29 10:41 | NUR ---
Pt moved to T3. Pt uncooperative with RNs attempts to start PIV. Pt attempting to hit staff despite education that that behavior will not be tolerated. PIV inserted by Reece ALMEIDA with US.
[2019-04-29 10:42] LABS: ALANINE AMINOTRANSFERASE 52 U/L (12-78); ALBUMIN 4.3 g/dL (3.4-5.0); ANION GAP 26 mmol/L (5-15); CALCIUM 10.4 mg/dL (8.5-10.1); CHLORIDE 104 mmol/L (98-107); CREATININE 2.35 mg/dL (0.55-1.02)
[2019-04-29 10:44] LABS: ALKALINE PHOSPHATASE 257 U/L (45-117); BILIRUBIN,TOTAL 0.6 mg/dL (0.2-1.0); TOTAL PROTEIN 10.1 g/dL (6.4-8.2)
[2019-04-29] MEDS ORDERED: MORPHINE SULFATE 4 MG/ML, 1ML ONE (10:48)
[2019-04-29 10:49] LABS: BASOPHILS # (AUTO) 0.05 x10^3/uL (0-0.1); BASOPHILS % (AUTO) 1 % (0-1); EOSINOPHILS # (AUTO) 0.01 x10^3/uL (0-0.4); EOSINOPHILS % (AUTO) 0 % (1-7); LYMPHOCYTES # (AUTO) 2.91 x10^3/uL (1-3.4); LYMPHOCYTES % (AUTO) 27 % (22-44); MD SCAN; MONOCYTES # (AUTO) 0.78 x10^3/uL (0.2-0.8); MONOCYTES % (AUTO) 7 % (2-9); NEUTROPHILS # (AUTO) 7.01 x10^3/uL (1.8-6.8); NEUTROPHILS % (AUTO) 65 % (42-75)
--- NOTE | 2019-04-29 10:50 | NUR ---
Pt medicated with 2mg Morphine IVP per Dr. Ames for pt's c/o L ankle pain.
--- NOTE | 2019-04-29 10:52 | NUR ---
Dr. Ames at bedside to insert central line as PIV inserted by RN has infiltrated.
[2019-04-29 10:56] LABS: ACETONE, SERUM Large (80mg/dL) mg/dL (Negative)
--- NOTE | 2019-04-29 11:03 | NUR ---
SUCCESSFUL CENTRAL LINE PLACEMENT IN RIGHT IJ BY DR. NOEL.
--- NOTE | 2019-04-29 11:05 | NUR ---
PORTABLE CHEST XRAY ORDERED.
--- NOTE | 2019-04-29 11:11 | NUR ---
PER OTTO LARIOS TO USE CENTRAL LINE PRIOR TO XRAY CONFIRMATION.
--- NOTE | 2019-04-29 11:14 | NUR ---
XRAY AT BEDSIDE.
--- NOTE | 2019-04-29 11:19 | NUR ---
2 L BOLUS INFUSING THROUGH CENTRAL LINE, AT BEDSIDE FOR CXR VIEWING ON PORTABLE MACHINE.
[2019-04-29] MEDS ORDERED: ONDANSETRON 2MG/ML, 2ML ONE (11:20)
--- NOTE | 2019-04-29 11:22 | NUR ---
PT MEDICATED PER ORDERS.
[2019-04-29] MEDS ORDERED: MORPHINE SULFATE 4 MG/ML, 1ML IVPush PRN (11:30)
--- NOTE | 2019-04-29 11:30 | NUR ---
Pt more calm at this time, no longer continuously moaning or restless in bed. Pt resting in bed with eyes closed, resp even and unlabored.
--- NOTE | 2019-04-29 11:36 | NUR ---
PT GIVEN BLANKET FOR COMFORT PER REQUEST.
--- NOTE | 2019-04-29 11:55 | NUR ---
EKG COMPLETED. SIGNIFICANT OTHER AT BEDSIDE. PER SO, HE STATES "I GAVE HER 25 UNITS AT 0500 AND THEN AT 0900 SHE ASKED FOR ANOTHER SHOT AND HER BLOOD SUGAR SAID HIGH SO I GAVE HER 24 MORE UNITS. AFTER THAT SHE TRIED TO GET UP TO GO TO THE BATHROOM AND GOT SUPER LIGHT HEADED AND FELL BACK ONTO THE BED AND THAT'S WHEN I CALLED 911."
--- NOTE | 2019-04-29 12:01 | NUR ---
MED REC COMPLETED.
--- NOTE | 2019-04-29 12:12 | NUR ---
FSBG RECHECK MD Jaimee NOTIFIED.
[2019-04-29] MEDS ORDERED: OXYcodone IR 5MG TABLET PO PRN (12:30)
[2019-04-29] MEDS ORDERED: ONDANSETRON 2MG/ML, 2ML IVPush PRN (12:30)
[2019-04-29] MEDS ORDERED: SODIUM CHLORIDE FLUSH 10ML SYR IVF PRN (12:30)
[2019-04-29] MEDS ORDERED: ACETAMINOPHEN 325 MG TABLET PO PRN (12:30)
[2019-04-29] MEDS ORDERED: PROMETHAZINE 25 MG/ML, 1ML IM PRN (12:30)
--- NOTE | 2019-04-29 12:46 | NUR ---
REPORT GIVEN TO ELLE NIX. PTTO TRANSFER TO ROOM 549-2 WHEN ROOM CLEAN, BEDSIDE RN TO NOTIFY ED.
[2019-04-29] MEDS: HEPARIN 5,000 UNITS/ML, 1ML SQ SCH ×2 (13:31→21:14)
[2019-04-29] MEDS: SODIUM CHLORIDE 0.9% 1,000 ML IV SCH ×2 (13:32→18:48)
[2019-04-29 14:20] VITALS: BP 98/64
[2019-04-29 14:45] LABS: ANION GAP 14 mmol/L (5-15); CHLORIDE 111 mmol/L (98-107); CREATININE 1.65 mg/dL (0.55-1.02)
[2019-04-29] MEDS ORDERED: POTASSIUM CHLORIDE 10 MEQ in D5%-0.45% NACL 1,000 ML IV SCH (15:00)
[2019-04-29] MEDS ORDERED: D5%-0.45% NACL+KCL 10MEQ 1,000 ML IV SCH (15:00)
[2019-04-29] MEDS ORDERED: GLUCAGON 1 MG IM PRN (15:00)
[2019-04-29] MEDS ORDERED: DEXTROSE 50%, 50ML SYRINGE IVPush PRN (15:00)
[2019-04-29] MEDS ORDERED: DEXTROSE 4 GM TAB.CHEW PO PRN (15:00)
[2019-04-29] MEDS: INSULIN LISPRO 100 UNITS/ML, PEN SQ-INSULIN SCH ×2 (16:00→21:20)
[2019-04-29 18:56] LABS: MICROSCOPIC INDICATED
[2019-04-29 18:57] LABS: ANION GAP 13 mmol/L (5-15); CALCIUM 7.2 mg/dL (8.5-10.1); CHLORIDE 99 mmol/L (98-107); CREATININE 1.56 mg/dL (0.55-1.02)
[2019-04-29 19:25] LABS: CULTURE INDICATED? YES
[2019-04-29] MEDS ORDERED: INSULIN GLARGINE 100 UNITS/ML, PEN SQ-INSULIN SCH (21:00)
[2019-04-29] MEDS: SODIUM CHLORIDE FLUSH 10ML SYR IVF SCH (21:14)
[2019-04-30 04:33] LABS: BASOPHILS # (AUTO) 0.05 x10^3/uL (0-0.1); BASOPHILS % (AUTO) 1 % (0-1); EOSINOPHILS # (AUTO) 0.06 x10^3/uL (0-0.4); EOSINOPHILS % (AUTO) 1 % (1-7); LYMPHOCYTES # (AUTO) 2.39 x10^3/uL (1-3.4); LYMPHOCYTES % (AUTO) 45 % (22-44); MD NO; MEAN CORPUSCULAR HEMOGLOBIN 29.7 pg (27.0-34.8); MEAN CORPUSCULAR HGB CONC 32.2 g/dL (32.4-35.8); MEAN CORPUSCULAR VOLUME 92.4 fL (80-100); MEAN PLATELET VOLUME 7.1 fL (7.4-10.4); MONOCYTES # (AUTO) 0.47 x10^3/uL (0.2-0.8); MONOCYTES % (AUTO) 9 % (2-9); NEUTROPHILS # (AUTO) 2.41 x10^3/uL (1.8-6.8); NEUTROPHILS % (AUTO) 45 % (42-75); PLATELET COUNT 398 x10^3/uL (130-400); RED BLOOD COUNT 2.87 x10^6/uL (3.82-5.3); RED CELL DISTRIBUTION WIDTH 16.5 % (9.6-15.2)
[2019-04-30 04:42] LABS: ALANINE AMINOTRANSFERASE 34 U/L (12-78); ALBUMIN 2.8 g/dL (3.4-5.0); ANION GAP 9 mmol/L (5-15); CALCIUM 8.2 mg/dL (8.5-10.1); CHLORIDE 107 mmol/L (98-107); CREATININE 1.15 mg/dL (0.55-1.02)
[2019-04-30 04:44] LABS: ALKALINE PHOSPHATASE 155 U/L (45-117); BILIRUBIN,TOTAL 0.3 mg/dL (0.2-1.0); TOTAL PROTEIN 6.3 g/dL (6.4-8.2)
[2019-04-30] MEDS: HEPARIN 5,000 UNITS/ML, 1ML SQ SCH (05:52)
[2019-04-30] MEDS: INSULIN LISPRO 100 UNITS/ML, PEN SQ-INSULIN SCH ×4 (05:56→21:04)
[2019-04-30] MEDS ORDERED: PANTOPRAZOLE 40 MG IV IVPush SCH (07:30)
[2019-04-30] MEDS: ENOXAPARIN 40 MG/0.4 ML SQ SCH (08:50)
[2019-04-30] MEDS: POTASSIUM CHLORIDE 20 MEQ TAB.ER.PRT PO SCH ×3 (08:50→16:42)
[2019-04-30] MEDS: INSULIN GLARGINE 100 UNITS/ML, PEN SQ-INSULIN SCH ×2 (08:51→21:05)
[2019-04-30] MEDS: SODIUM CHLORIDE FLUSH 10ML SYR IVF SCH ×2 (08:54→21:05)
[2019-04-30 10:58] VITALS: BP 104/69
[2019-04-30 15:27] VITALS: BP 108/73
[2019-04-30 19:35] VITALS: BP 118/77
[2019-05-01 01:31] VITALS: BP 107/69
[2019-05-01 05:22] LABS: BASOPHILS # (AUTO) 0.04 x10^3/uL (0-0.1); BASOPHILS % (AUTO) 1 % (0-1); EOSINOPHILS # (AUTO) 0.03 x10^3/uL (0-0.4); EOSINOPHILS % (AUTO) 1 % (1-7); LYMPHOCYTES # (AUTO) 1.77 x10^3/uL (1-3.4); LYMPHOCYTES % (AUTO) 47 % (22-44); MD NO; MEAN CORPUSCULAR VOLUME 93.8 fL (80-100); MEAN PLATELET VOLUME 7.5 fL (7.4-10.4); MONOCYTES # (AUTO) 0.34 x10^3/uL (0.2-0.8); MONOCYTES % (AUTO) 9 % (2-9); NEUTROPHILS # (AUTO) 1.62 x10^3/uL (1.8-6.8); NEUTROPHILS % (AUTO) 43 % (42-75); PLATELET COUNT 303 x10^3/uL (130-400); RED CELL DISTRIBUTION WIDTH 16.7 % (9.6-15.2)
[2019-05-01 05:28] LABS: ANION GAP 9 mmol/L (5-15); CALCIUM 8.3 mg/dL (8.5-10.1); CHLORIDE 111 mmol/L (98-107)
[2019-05-01 05:34] LABS: CHOL/HDL RATIO 5.4; CHOLESTEROL, TOTAL 151 mg/dL (140-239); CREATININE 0.84 mg/dL (0.55-1.02); HDL CHOL % 19 % (28-40); HDL CHOLESTEROL (DIRECT) 28 mg/dL (40-60); LDL CHOLESTEROL,CALCULATED 63 mg/dL (54-169); LDL/HDL RATIO 2.3 (0.5-3.0); TRIGLYCERIDES 301 mg/dL (50-200); VLDL CHOLESTEROL 60 mg/dL (0-25)
[2019-05-01 06:45] VITALS: BP 115/76
[2019-05-01] MEDS: ENOXAPARIN 40 MG/0.4 ML SQ SCH (07:30)
[2019-05-01] MEDS: INSULIN LISPRO 100 UNITS/ML, PEN SQ-INSULIN SCH ×4 (07:43→20:53)
[2019-05-01] MEDS: INSULIN GLARGINE 100 UNITS/ML, PEN SQ-INSULIN SCH ×2 (10:05→20:55)
[2019-05-01] MEDS: SODIUM CHLORIDE FLUSH 10ML SYR IVF SCH ×2 (10:05→20:52)
[2019-05-01] MEDS ORDERED: INSULIN LISPRO 100 UNIT/ML, 3ML VIAL SQ-INSULIN ONE (13:00)
[2019-05-01 13:36] VITALS: BP 103/65
[2019-05-01] MEDS ORDERED: INSULIN LISPRO 100 UNITS/ML, PEN SQ-INSULIN ONE (14:30)
[2019-05-01 14:55] LABS: ANION GAP 14 mmol/L (5-15); CALCIUM 8.3 mg/dL (8.5-10.1); CHLORIDE 103 mmol/L (98-107); CREATININE 1.45 mg/dL (0.55-1.02)
[2019-05-01] MEDS ORDERED: SODIUM CHLORIDE 0.9% 1,000ML IVBOLUS ONE (16:00)
[2019-05-01] MEDS: SODIUM CHLORIDE 0.9% 1,000 ML IV SCH (19:27)
[2019-05-01 19:44] VITALS: BP 114/77
[2019-05-01 21:42] LABS: ANION GAP 7 mmol/L (5-15); CALCIUM 7.9 mg/dL (8.5-10.1); CHLORIDE 109 mmol/L (98-107)
[2019-05-02 01:45] VITALS: BP 112/75
[2019-05-02] MEDS: SODIUM CHLORIDE 0.9% 1,000 ML IV SCH ×2 (02:30→09:37)
[2019-05-02 05:35] LABS: CHLORIDE 112 mmol/L (98-107)
[2019-05-02 05:40] LABS: ANION GAP 10 mmol/L (5-15); CREATININE 0.92 mg/dL (0.55-1.02)
[2019-05-02 07:11] VITALS: BP 115/76
[2019-05-02] MEDS: ENOXAPARIN 40 MG/0.4 ML SQ SCH (07:30)
[2019-05-02] MEDS: INSULIN LISPRO 100 UNITS/ML, PEN SQ-INSULIN SCH ×2 (07:35→11:21)
[2019-05-02] MEDS: SODIUM CHLORIDE FLUSH 10ML SYR IVF SCH (07:37)
[2019-05-02] MEDS ORDERED: INSULIN GLARGINE 100 UNITS/ML, PEN SQ-INSULIN SCH (09:00)
== END 2019-05-02 11:51 | disposition left against medical advice (07) | DRG 469 ==
LOC: ED 10:15 → CCU 12:02 → 3N 04-30 11:15
PROVIDERS: ADMIT Emergency Medicine; ATTEND Internal Medicine
PROC: 02HV33Z Insertion of Infusion Device into Superior Vena Cava, Percutaneous Approach (ICD-10-PCS; principal; 2019-04-29)
PROC: B548ZZA Ultrasonography of Superior Vena Cava, Guidance (ICD-10-PCS; 2019-04-29)
DX: N17.0 Acute kidney failure with tubular necrosis (principal); E10.649 Type 1 diabetes mellitus with hypoglycemia without coma; E10.21 Type 1 diabetes mellitus with diabetic nephropathy; K31.84 Gastroparesis; E10.43 Type 1 diabetes mellitus with diabetic autonomic (poly)neuropathy; E83.52 Hypercalcemia; Z53.29 Procedure and treatment not carried out because of patient's decision for other reasons; E78.5 Hyperlipidemia, unspecified; E86.0 Dehydration; E87.6 Hypokalemia; Z79.4 Long term (current) use of insulin; Z82.49 Family history of ischemic heart disease and other diseases of the circulatory system; Z82.0 Family history of epilepsy and other diseases of the nervous system; Z83.3 Family history of diabetes mellitus; Z91.19 Patient's noncompliance with other medical treatment and regimen; Z88.8 Allergy status to other drugs, medicaments and biological substances; Z91.040 Latex allergy status
CPT/HCPCS: 36415; 71045; 80048; 80053; 80061; 81001; 82010; 82803; 82947; 82962; 83690; 83735; 84100; 85025; 87081; 87086; 93005; 96361; 96374; 96375; 99291; G0378; J1644; J1650; J2405; J2550; J1815; J2270; J7030

== ENCOUNTER 2019-05-13 15:50 | Inpatient (IN) | payer MEDICAID ==
[~2019-05-13] VITALS: Ht 165.1 cm; Wt 73.9 kg
[2019-05-13] MEDS ORDERED: SODIUM CHLORIDE 0.9% 1,000ML IVBOLUS ONE ×2 (16:00→21:00)
[2019-05-13] MEDS ORDERED: SODIUM CHLORIDE FLUSH 10ML SYR IVF ONE (16:00)
--- NOTE | 2019-05-13 16:07 | NUR ---
THIS IS A 23 YEAR OLD POORLY CONTROLLED DM. PT C/O OF BS METER STATING "HI". PT HAS VERY POOR IV ACCESS. DISCUSSED WITH DR. NOEL REGARDING POSSIBLE CENTRAL LINE. PT PLACED ON MOTOR INSPECTION MECHANIC TACHY 95-110. SPO2, AND CYCLE VS. OBTAINED URINE, SENT URINE TO LAB
--- NOTE | 2019-05-13 16:22 | NUR ---
ATTEMPTED IV X 2 UNABLE DUE TO POOR VASCULAR ACCESS. NOTIFIED
[2019-05-13 16:23] LABS: MICROSCOPIC INDICATED
[2019-05-13 16:40] LABS: PH, VENOUS 7.351 pH (7.320-7.420)
[2019-05-13 16:44] LABS: FIO2 ROOM AIR %
[2019-05-13 16:51] LABS: ACETONE, SERUM Large (80mg/dL) (Negative); BASOPHILS # (AUTO) 0.01 x10^3/uL (0-0.1); BASOPHILS % (AUTO) 0 % (0-1); EOSINOPHILS # (AUTO) 0.01 x10^3/uL (0-0.4); EOSINOPHILS % (AUTO) 0 % (1-7); LYMPHOCYTES # (AUTO) 1.09 x10^3/uL (1-3.4); LYMPHOCYTES % (AUTO) 21 % (22-44); MD NO; MEAN CORPUSCULAR HEMOGLOBIN 29.9 pg (27.0-34.8); MEAN CORPUSCULAR HGB CONC 31.4 g/dL (32.4-35.8); MEAN CORPUSCULAR VOLUME 95.3 fL (80-100); MEAN PLATELET VOLUME 8.3 fL (7.4-10.4); MONOCYTES # (AUTO) 0.37 x10^3/uL (0.2-0.8); MONOCYTES % (AUTO) 7 % (2-9); NEUTROPHILS # (AUTO) 3.61 x10^3/uL (1.8-6.8); NEUTROPHILS % (AUTO) 71 % (42-75); PLATELET COUNT 366 x10^3/uL (130-400); RED BLOOD COUNT 3.41 x10^6/uL (3.82-5.3); RED CELL DISTRIBUTION WIDTH 18.4 % (9.6-15.2)
[2019-05-13 16:53] LABS: ALANINE AMINOTRANSFERASE 68 U/L (12-78); ALBUMIN 3.4 g/dL (3.4-5.0); ANION GAP 16 mmol/L (5-15); CALCIUM 9.4 mg/dL (8.5-10.1); CHLORIDE 89 mmol/L (98-107); CREATININE 1.29 mg/dL (0.55-1.02)
[2019-05-13 16:57] LABS: ALKALINE PHOSPHATASE 313 U/L (45-117); BILIRUBIN,TOTAL 0.5 mg/dL (0.2-1.0); TOTAL PROTEIN 7.7 g/dL (6.4-8.2)
[2019-05-13 17:00] LABS: CULTURE INDICATED? NO
--- NOTE | 2019-05-13 17:15 | NUR ---
SET UP FOR CENTRAL LINE. PT SIGNED CONSENT.
--- NOTE | 2019-05-13 18:24 | NUR ---
CENTRAL LINE COMPLETED, PT TOLERATED WELL LEFT IJ. AWAITING XRAY CONFIRMATION
--- NOTE | 2019-05-13 18:46 | NUR ---
PER DR. NOEL OK USE CENTRAL LINE. STARTED IV FLUIDS, INFUSING WELL
--- NOTE | 2019-05-13 18:57 | NUR ---
REPORT TO SHARON ALMEIDA, PLAN OF CARE DISCUSSED
--- NOTE | 2019-05-13 19:10 | NUR ---
REPORT OF PT FROM ELLE AL AND ASSUMING CARE OF PT AT THIS TIME. PT RESTING COMFORTABLY IN [facility] AT THIS TIME WITH CALL LIGHT WITHIN REACH.
[2019-05-13] MEDS ORDERED: REGULAR INSULIN 100 UNITS in SODIUM CHLORIDE 0.9% 99 ML IV PRN (19:24)
[2019-05-13] MEDS ORDERED: SODIUM CHLORIDE FLUSH 10ML SYR IVF PRN (19:30)
--- NOTE | 2019-05-13 20:11 | NUR ---
YELLOW SLIP SENT TO PHARMACY FOR INSULIN DRIP.
--- NOTE | 2019-05-13 20:22 | NUR ---
Stat random glucose ordered. blood drawn off central line under sterile fashion and tubed to lab. insulin has arrived.
[2019-05-13] MEDS ORDERED: ACETAMINOPHEN 325 MG TABLET PO PRN (20:30)
[2019-05-13] MEDS ORDERED: ONDANSETRON 2MG/ML, 2ML IV PRN (20:30)
[2019-05-13] MEDS ORDERED: PROMETHAZINE 25 MG/ML, 1ML IM PRN (20:30)
[2019-05-13] MEDS ORDERED: hydrALAzine 20 MG/ML, 1ML IVPush PRN (20:30)
[2019-05-13] MEDS: HEPARIN 5,000 UNITS/ML, 1ML SQ SCH (20:30)
[2019-05-13] MEDS: ATORVASTATIN 10 MG TABLET PO SCH (21:00)
[2019-05-13] MEDS: SODIUM CHLORIDE 0.9% 1,000 ML IV SCH (21:16)
[2019-05-13] MEDS: D5%-0.45NACL+KCL 20MEQ 1,000 ML IV SCH (22:36)
[2019-05-14 01:06] LABS: ANION GAP 8 mmol/L (5-15); CALCIUM 8.1 mg/dL (8.5-10.1); CHLORIDE 107 mmol/L (98-107)
[2019-05-14] MEDS: SODIUM CHLORIDE 0.9% 1,000 ML IV SCH ×3 (01:26→21:50)
[2019-05-14] MEDS ORDERED: POTASSIUM CHLORIDE 40 MEQ in SODIUM CHLORIDE 0.9% 100 ML IV ONE (03:00)
[2019-05-14] MEDS: HEPARIN 5,000 UNITS/ML, 1ML SQ SCH ×3 (04:30→20:30)
[2019-05-14 04:46] LABS: EOSINOPHILS # (AUTO) 0.05 x10^3/uL (0-0.4); MD NO
[2019-05-14 04:48] LABS: ANION GAP 7 mmol/L (5-15); CHLORIDE 108 mmol/L (98-107)
[2019-05-14 05:05] LABS: BASOPHILS # (AUTO) 0.02 x10^3/uL (0-0.1); BASOPHILS % (AUTO) 0 % (0-1); EOSINOPHILS % (AUTO) 1 % (1-7); LYMPHOCYTES % (AUTO) 54 % (22-44); MEAN CORPUSCULAR HEMOGLOBIN 30.5 pg (27.0-34.8); MEAN CORPUSCULAR HGB CONC 33.2 g/dL (32.4-35.8); MEAN CORPUSCULAR VOLUME 91.8 fL (80-100); MEAN PLATELET VOLUME 7.9 fL (7.4-10.4); MONOCYTES # (AUTO) 0.35 x10^3/uL (0.2-0.8); MONOCYTES % (AUTO) 9 % (2-9); NEUTROPHILS # (AUTO) 1.39 x10^3/uL (1.8-6.8); NEUTROPHILS % (AUTO) 36 % (42-75); PLATELET COUNT 294 x10^3/uL (130-400); RED BLOOD COUNT 2.76 x10^6/uL (3.82-5.3); RED CELL DISTRIBUTION WIDTH 18.3 % (9.6-15.2)
[2019-05-14] MEDS: D5%-0.45NACL+KCL 20MEQ 1,000 ML IV SCH (06:08)
[2019-05-14 08:34] LABS: ANION GAP 7 mmol/L (5-15); CALCIUM 7.7 mg/dL (8.5-10.1); CHLORIDE 109 mmol/L (98-107); CREATININE 0.78 mg/dL (0.55-1.02)
[2019-05-14] MEDS: FERROUS SULFATE 325 MG TABLET PO SCH (08:39)
[2019-05-14] MEDS ORDERED: INSULIN GLARGINE 100 UNITS/ML, PEN SQ-INSULIN ONE (09:00)
[2019-05-14] MEDS: INSULIN LISPRO 100 UNITS/ML, PEN SQ-INSULIN SCH ×3 (11:37→21:52)
[2019-05-14] MEDS ORDERED: INSULIN LISPRO 100 UNITS/ML, PEN SQ-INSULIN SCH (16:00)
[2019-05-14 16:11] VITALS: BP 122/80
[2019-05-14 18:49] VITALS: BP 118/83
[2019-05-14] MEDS ORDERED: INSULIN GLARGINE 100 UNITS/ML, PEN SQ-INSULIN SCH (21:00)
[2019-05-14] MEDS: ATORVASTATIN 10 MG TABLET PO SCH (21:50)
[2019-05-14] MEDS: INSULIN GLARGINE 100 UNITS/ML, PEN SQ-INSULIN SCH (21:54)
[2019-05-15 00:36] VITALS: BP 99/64
[2019-05-15] MEDS: HEPARIN 5,000 UNITS/ML, 1ML SQ SCH ×2 (04:30→12:36)
[2019-05-15] MEDS: INSULIN LISPRO 100 UNITS/ML, PEN SQ-INSULIN SCH ×6 (06:33→16:39)
[2019-05-15] MEDS ORDERED: INSULIN LISPRO 100 UNITS/ML, PEN SQ-INSULIN SCH (07:00)
[2019-05-15] MEDS: SODIUM CHLORIDE 0.9% 1,000 ML IV SCH (08:38)
[2019-05-15] MEDS: INSULIN GLARGINE 100 UNITS/ML, PEN SQ-INSULIN SCH (08:45)
[2019-05-15] MEDS: FERROUS SULFATE 325 MG TABLET PO SCH (08:45)
[2019-05-15 08:59] VITALS: BP 110/74
[2019-05-15 10:37] LABS: BASOPHILS # (AUTO) 0.02 x10^3/uL (0-0.1); BASOPHILS % (AUTO) 1 % (0-1); EOSINOPHILS # (AUTO) 0.02 x10^3/uL (0-0.4); EOSINOPHILS % (AUTO) 1 % (1-7); LYMPHOCYTES # (AUTO) 1.05 x10^3/uL (1-3.4); LYMPHOCYTES % (AUTO) 24 % (22-44); MD NO; MEAN CORPUSCULAR HEMOGLOBIN 30.3 pg (27.0-34.8); MEAN CORPUSCULAR HGB CONC 32.3 g/dL (32.4-35.8); MEAN CORPUSCULAR VOLUME 93.8 fL (80-100); MEAN PLATELET VOLUME 8.1 fL (7.4-10.4); MONOCYTES # (AUTO) 0.33 x10^3/uL (0.2-0.8); MONOCYTES % (AUTO) 7 % (2-9); NEUTROPHILS # (AUTO) 3.01 x10^3/uL (1.8-6.8); NEUTROPHILS % (AUTO) 68 % (42-75); PLATELET COUNT 286 x10^3/uL (130-400); RED BLOOD COUNT 2.97 x10^6/uL (3.82-5.3)
[2019-05-15 10:41] LABS: ALBUMIN 2.6 g/dL (3.4-5.0); ANION GAP 10 mmol/L (5-15); CALCIUM 7.9 mg/dL (8.5-10.1); CHLORIDE 102 mmol/L (98-107)
[2019-05-15 10:44] LABS: ALANINE AMINOTRANSFERASE 59 U/L (12-78); ALKALINE PHOSPHATASE 190 U/L (45-117); BILIRUBIN,TOTAL 0.6 mg/dL (0.2-1.0); CREATININE 0.87 mg/dL (0.55-1.02); TOTAL PROTEIN 6.2 g/dL (6.4-8.2)
[2019-05-15 15:47] VITALS: BP 117/79
[2019-05-15] MEDS ORDERED: INSU100I13 SQ-INSULIN (16:10)
== END 2019-05-15 17:42 | disposition home or self-care (01) | DRG 420 ==
LOC: ED 16:57 → EDIP 19:24 → CCU 20:38 → 3N 05-14 17:59
PROVIDERS: ADMIT Family Medicine; ATTEND Family Medicine
PROC: 02H633Z Insertion of Infusion Device into Right Atrium, Percutaneous Approach (ICD-10-PCS; principal; 2019-05-14)
PROC: B548ZZA Ultrasonography of Superior Vena Cava, Guidance (ICD-10-PCS; 2019-05-14)
DX: E10.69 Type 1 diabetes mellitus with other specified complication (principal); N17.0 Acute kidney failure with tubular necrosis; I10 Essential (primary) hypertension; K31.84 Gastroparesis; F12.90 Cannabis use, unspecified, uncomplicated; E10.43 Type 1 diabetes mellitus with diabetic autonomic (poly)neuropathy; D64.9 Anemia, unspecified; E87.0 Hyperosmolality and hypernatremia; E86.0 Dehydration; E87.6 Hypokalemia; Z83.3 Family history of diabetes mellitus; Z79.4 Long term (current) use of insulin; Z91.040 Latex allergy status; Z88.8 Allergy status to other drugs, medicaments and biological substances; Z79.899 Other long term (current) drug therapy
CPT/HCPCS: 36415; 36556; 71045; 80048; 80053; 81001; 82010; 82803; 82947; 82962; 83036; 83605; 83690; 83735; 84075; 84100; 84145; 84703; 85025; 87081; 93005; 96361; 96374; G0378; J3480; J1815; J7030

== ENCOUNTER 2019-08-07 20:28 | Inpatient (IN) | payer MEDICAID, OTHER ==
[~2019-08-07] VITALS: Ht 165.1 cm; Wt 66.0 kg
[2019-08-07] MEDS ORDERED: SODIUM CHLORIDE FLUSH 10ML SYR IVF ONE (21:00)
[2019-08-07] MEDS ORDERED: ONDANSETRON 2MG/ML, 2ML IVPush ONE (21:00)
[2019-08-07] MEDS ORDERED: ONDANSETRON ODT 4 MG ONE ×2 (21:29→22:33)
[2019-08-07] MEDS ORDERED: ONDANSETRON ODT 4 MG PO ONE ×2 (21:30→22:30)
[2019-08-07 21:42] LABS: ALBUMIN 2.5 g/dL (3.4-5.0); ANION GAP 19 mmol/L (5-15); BASOPHILS # (AUTO) 0.02 x10^3/uL (0-0.1); BASOPHILS % (AUTO) 1 % (0-1); CALCIUM 8.2 mg/dL (8.5-10.1); CHLORIDE 104 mmol/L (98-107); EOSINOPHILS # (AUTO) 0.02 x10^3/uL (0-0.4); EOSINOPHILS % (AUTO) 0 % (1-7); LYMPHOCYTES # (AUTO) 1.69 x10^3/uL (1-3.4); LYMPHOCYTES % (AUTO) 38 % (22-44); MD NO; MEAN CORPUSCULAR HEMOGLOBIN 31.2 pg (27.0-34.8); MEAN CORPUSCULAR HGB CONC 32.1 g/dL (32.4-35.8); MEAN CORPUSCULAR VOLUME 97.1 fL (80-100); MEAN PLATELET VOLUME 7.7 fL (7.4-10.4); MONOCYTES # (AUTO) 0.41 x10^3/uL (0.2-0.8); MONOCYTES % (AUTO) 9 % (2-9); NEUTROPHILS % (AUTO) 52 % (42-75); PLATELET COUNT 336 x10^3/uL (130-400); RED BLOOD COUNT 3.57 x10^6/uL (3.82-5.3); RED CELL DISTRIBUTION WIDTH 17.4 % (9.6-15.2)
[2019-08-07 21:45] LABS: ALANINE AMINOTRANSFERASE 131 U/L (12-78); ALKALINE PHOSPHATASE 472 U/L (45-117); BILIRUBIN,TOTAL 0.2 mg/dL (0.2-1.0); CREATININE 1.53 mg/dL (0.55-1.02); TOTAL PROTEIN 6.6 g/dL (6.4-8.2)
--- NOTE | 2019-08-07 21:54 | NUR ---
PATIENT STATED THAT SHE NOW HAS A HEADACHE. PATIENT STATED THAT THIS IS A NEW OCCURANCE FOR HER. NOTE LEFT FOR PROVIDER
[2019-08-07] MEDS ORDERED: SODIUM CHLORIDE 0.9% 1,000ML IVBOLUS ONE (22:30)
[2019-08-07] MEDS ORDERED: ACETAMINOPHEN 500 MG TABLET PO ONE (22:30)
[2019-08-07] MEDS ORDERED: POTASSIUM CHLORIDE 20 MEQ TAB.ER.PRT PO ONE (22:30)
[2019-08-07] MEDS ORDERED: POTASSIUM CHLORIDE 20 MEQ PACKET ONE (22:33)
[2019-08-07] MEDS ORDERED: ACETAMINOPHEN 500 MG TABLET ONE (22:34)
--- NOTE | 2019-08-07 22:34 | NUR ---
PATIENT IS DIFFICULT IV START, CAREER SERVICES MANAGER CONSULTED FOR ULTRASOUND IV PLACEMENT.
[2019-08-07 22:44] LABS: MICROSCOPIC INDICATED
--- NOTE | 2019-08-07 22:55 | NUR ---
PIV PLACED ON 3RD ATTEMPT, PT TOLERATED WELL. PT REPORTS SHE CAN TASTE THE SALINE INFUSION.
[2019-08-07 22:57] LABS: CULTURE INDICATED? NO
[2019-08-07 23:07] LABS: PH, VENOUS 7.383 pH (7.320-7.420)
[2019-08-07 23:09] LABS: ACETONE, SERUM Large (80mg/dL) (Negative)
[2019-08-08] MEDS ORDERED: POTASSIUM CHLORIDE 40 MEQ in SODIUM CHLORIDE 0.9% 500 ML IV ONE
[2019-08-08] MEDS ORDERED: D5%-0.45NACL+KCL 20MEQ 1,000 ML IV SCH (00:05)
[2019-08-08] MEDS ORDERED: REGULAR INSULIN 100 UNITS in SODIUM CHLORIDE 0.9% 99 ML IV PRN (00:05)
[2019-08-08 00:15] VITALS: BP 114/66
[2019-08-08] MEDS ORDERED: SODIUM CHLORIDE 0.9% 1,000ML IVBOLUS ONE (00:30)
[2019-08-08] MEDS ORDERED: PROMETHAZINE 25 MG/ML, 1ML IM PRN (00:30)
[2019-08-08] MEDS ORDERED: GLUCAGON 1 MG IM PRN (00:30)
[2019-08-08] MEDS ORDERED: DEXTROSE 4 GM TAB.CHEW PO PRN (00:30)
[2019-08-08] MEDS ORDERED: hydrALAzine 20 MG/ML, 1ML IVPush PRN (00:30)
[2019-08-08] MEDS ORDERED: ONDANSETRON 2MG/ML, 2ML IV PRN (00:30)
[2019-08-08] MEDS ORDERED: ACETAMINOPHEN 325 MG TABLET PO PRN (00:30)
[2019-08-08] MEDS ORDERED: DEXTROSE 50%, 50ML SYRINGE IVPush PRN (00:30)
--- NOTE | 2019-08-08 00:39 | NUR ---
UPDATED PATIENT ON PLAN OF CARE. NO NOTED ACUTE DISTRESS. VITAL SIGNS REMAIN UNCHANGED. PATIENT TOLERATING INTERVENTIONS WELL. PATIENT PLACED ON PROJECT GEOPHYSICIST DUE TO POTASSIUM IV INFUSION. PATIENT GIVEN EDUCATION REGARDING IV POTASSIUM. BLOOD GLUCOSE CHECKED 138 AT GLUCOMETER. CALLED PHARMACY, PHARMACY STATED THAT IV POTASSIUM AND MAINTENCE FLUIDS/ D4 0.45%NACL 20MEQ POTASSIUM COULD NOT BE ADMINISTERED THROUGH SAME IV.
--- NOTE | 2019-08-08 00:51 | NUR ---
PATIENT REQUIRES SECOND IV ACCESS FOR MAINTENCE FLUIDS, AND INSULIN DRIP. INSULIN DRIP CAN NOT BE STARTED AT THIS TIME UNTIL THE POTASSIUM IS 3.3, CURRENT POTASSIUM 2.9. WILL REDRAW AND EVALUATE AFTER IV POTASSIUM IS FINISHED INFUSING.
--- NOTE | 2019-08-08 01:18 | NUR ---
THIS RN INTO ROOM DUE TO PT NEEDING 2ND IV FOR ADMISSION TO ICU. RIGHT ARM VISUALIZED WITH ULTRASOUND. PT WITH VERY POOR VASCULATURE AND COMPLAINING OF PAIN AT SITES OF PRIOR IV ATTEMPTS. PT DECLINING THIS RN TO EXAMINE LEFT ARM. PT DECLINING TO ALLOW RN TO CHECK EXTERNAL JUGULAR SITES. PT STATES "I'D RATHER NOT" TO NECK AND LEFT ARM EXAM. NO IV ATTEMPT MADE AT THIS TIME.
[2019-08-08] MEDS ORDERED: MAGNESIUM SULFATE 1 GM in SODIUM CHLORIDE 0.9% 50 ML IV ONE (01:30)
[2019-08-08] MEDS ORDERED: SODIUM CHLORIDE FLUSH 10ML SYR IVF SCH (09:00)
[2019-08-08] MEDS ORDERED: ATORVASTATIN 10 MG TABLET PO SCH (21:00)
== END 2019-08-08 02:20 | disposition left against medical advice (07) | DRG 637 ==
LOC: ED 22:41 → EDIP 23:53 → CCU 08-08 01:47
PROVIDERS: ADMIT Family Medicine; ATTEND Family Medicine
DX: E10.10 Type 1 diabetes mellitus with ketoacidosis without coma (principal); N17.0 Acute kidney failure with tubular necrosis; E10.43 Type 1 diabetes mellitus with diabetic autonomic (poly)neuropathy; D64.9 Anemia, unspecified; E83.42 Hypomagnesemia; E86.0 Dehydration; E87.6 Hypokalemia; F12.10 Cannabis abuse, uncomplicated; J30.2 Other seasonal allergic rhinitis; K31.84 Gastroparesis; R00.0 Tachycardia, unspecified; R74.0 Nonspecific elevation of levels of transaminase and lactic acid dehydrogenase [LDH]; Z91.040 Latex allergy status
CPT/HCPCS: 36415; 80053; 81001; 82010; 82803; 82962; 83036; 83690; 83735; 84100; 84703; 85025; 96374; J3480; Q0162; J7030; J7040

== ENCOUNTER 2019-09-05 14:40 | Inpatient (IN) | payer MEDICAID ==
[~2019-09-05] VITALS: Ht 165.1 cm; Wt 76.8 kg
[~2019-09-05 14:40] MED LIST changes: -ASCO500T6 PO; +ASCO500T9 PO
--- NOTE | 2019-09-05 15:12 | NUR ---
PATIENT AMBULATORY WITH STEADY GAIT TO RESTROOM. URINE CUP PROVIDED
--- NOTE | 2019-09-05 15:21 | NUR ---
THIS IS A 24 YO FEMALE COMING IN FOR N/V/D WITH LLQ ABD PAIN RADIATING TO LEFT FLANK STARTING AT 0700 TODAY. PATIENT STATES HX T1DM, LAST INSULIN TAKEN AROUND NOON. FSBS READ "HIGH" INDICATING >600. DENIES LIGHTHEADED/DIZZINESS. PATIENT A&OX4, VSS, NADN AT THIS TIME, ALL MONITORING IN PLACE, NSR ON SAILING INSTRUCTOR WITH INFREQUENT PVC'S. CALL LIGHT IN REACH.
[2019-09-05] MEDS ORDERED: ONDANSETRON 2MG/ML, 2ML IVPush ONE (15:30)
[2019-09-05] MEDS ORDERED: SODIUM CHLORIDE 0.9% 1,000ML IVBOLUS ONE (15:30)
--- NOTE | 2019-09-05 15:31 | NUR ---
UA COLLECTED AND SENT
[2019-09-05] MEDS ORDERED: ONDANSETRON 2MG/ML, 2ML ONE (15:44)
[2019-09-05 15:46] LABS: MICROSCOPIC NOT IND
[2019-09-05 15:49] LABS: PH, VENOUS 7.353 pH (7.320-7.420)
[2019-09-05 15:51] LABS: BASOPHILS # (AUTO) 0.01 x10^3/uL (0-0.1); BASOPHILS % (AUTO) 0 % (0-1); EOSINOPHILS # (AUTO) 0.03 x10^3/uL (0-0.4); EOSINOPHILS % (AUTO) 1 % (1-7); LYMPHOCYTES # (AUTO) 1.08 x10^3/uL (1-3.4); LYMPHOCYTES % (AUTO) 27 % (22-44); MD NO; MEAN CORPUSCULAR HEMOGLOBIN 31.6 pg (27.0-34.8); MEAN CORPUSCULAR HGB CONC 31.7 g/dL (32.4-35.8); MEAN CORPUSCULAR VOLUME 99.7 fL (80-100); MEAN PLATELET VOLUME 7.7 fL (7.4-10.4); MONOCYTES # (AUTO) 0.33 x10^3/uL (0.2-0.8); MONOCYTES % (AUTO) 8 % (2-9); NEUTROPHILS # (AUTO) 2.55 x10^3/uL (1.8-6.8); NEUTROPHILS % (AUTO) 64 % (42-75); PLATELET COUNT 447 x10^3/uL (130-400); RED BLOOD COUNT 3.15 x10^6/uL (3.82-5.3); RED CELL DISTRIBUTION WIDTH 19.3 % (9.6-15.2)
--- NOTE | 2019-09-05 15:53 | NUR ---
PIV PLACED BY ELLE ACEVES. IVF STARTED, MEDICATED PER EMAR
[2019-09-05 16:02] LABS: ALBUMIN 3.3 g/dL (3.4-5.0); ANION GAP 15 mmol/L (5-15); CALCIUM 8.2 mg/dL (8.5-10.1); CHLORIDE 88 mmol/L (98-107)
[2019-09-05 16:06] LABS: ALANINE AMINOTRANSFERASE 77 U/L (12-78); ALKALINE PHOSPHATASE 283 U/L (45-117); BILIRUBIN,TOTAL 0.8 mg/dL (0.2-1.0); CREATININE 1.36 mg/dL (0.55-1.02)
--- NOTE | 2019-09-05 16:16 | NUR ---
PATIENT RESTING ON GURNEY, RESPIRATIONS EVEN AND UNLABORED. VSS, ALL MONITORING IN PLACE. IVF RUNNING. LABS PENDING
[2019-09-05 16:31] LABS: ACETONE, SERUM Large (80mg/dL) (Negative)
[2019-09-05] MEDS ORDERED: LACTATED RINGERS 1,000 ML IVBOLUS ONE (17:00)
--- NOTE | 2019-09-05 17:15 | NUR ---
PATIENT RESTING ON [facility], S, ALL MONITORING IN PLACE. IVF RUNNING
--- NOTE | 2019-09-05 17:53 | NUR ---
IVF FINISHED, FSBS STILL >600. ERP AWARE. PATIENT TO BE ADMITTED PER ERP ORDERS
--- NOTE | 2019-09-05 18:22 | NUR ---
THROUGHOUT RN: PT W/ MEDICAID SILVERSUMMIT INSURANCE. SPOKE W/ HIEU FROM [facility] WHO DECLINES TRANSFER. SPOKE W/ ADONIS FROM [facility] WHO DECLINES TRANSFER. PSN FAXED TO [phone]. CONFIRMATION RECEIVED.
[2019-09-05] MEDS ORDERED: INSULIN SINGLE DOSE, ER ONE (18:23)
--- NOTE | 2019-09-05 18:27 | NUR ---
PATIENT MEDICATED PER EMAR. VERIFIED BY ELLE CATALAN
[2019-09-05] MEDS ORDERED: INSULIN REGULAR 100 UNITS/ML, 3ML VIAL IVPush ONE (18:30)
--- NOTE | 2019-09-05 18:42 | NUR ---
REPORT GIVEN TO ELLE WILSON. PLAN OF CARE DISCUSSED
[2019-09-05] MEDS ORDERED: ONDANSETRON 2MG/ML, 2ML IVPush PRN (19:00)
[2019-09-05] MEDS ORDERED: INSULIN LISPRO 100 UNITS/ML, PEN SQ-INSULIN SCH ×2 (19:00→21:00)
[2019-09-05] MEDS: SODIUM CHLORIDE 0.9% 1,000 ML IV SCH (19:19)
[2019-09-05 19:23] VITALS: BP 125/88
[2019-09-05] MEDS ORDERED: DIPHENHYDRAMINE/ZINC CRM 2%, 30GM TP PRN (20:00)
[2019-09-05] MEDS: INSULIN LISPRO 100 UNITS/ML, PEN SQ-INSULIN SCH (20:48)
[2019-09-05] MEDS: INSULIN GLARGINE 100 UNITS/ML, PEN SQ-INSULIN SCH (20:48)
[2019-09-05] MEDS ORDERED: INSULIN GLARGINE 100 UNITS/ML, PEN SQ-INSULIN SCH ×2 (21:00)
[2019-09-06] MEDS: SODIUM CHLORIDE 0.9% 1,000 ML IV SCH ×5 (00:21→19:45)
[2019-09-06 01:41] VITALS: BP 103/71
[2019-09-06] MEDS: INSULIN LISPRO 100 UNITS/ML, PEN SQ-INSULIN SCH ×4 (03:06→21:05)
[2019-09-06 05:29] LABS: BASOPHILS # (AUTO) 0.02 x10^3/uL (0-0.1); BASOPHILS % (AUTO) 1 % (0-1); EOSINOPHILS % (AUTO) 2 % (1-7); LYMPHOCYTES # (AUTO) 2.03 x10^3/uL (1-3.4); LYMPHOCYTES % (AUTO) 45 % (22-44); MD NO; MEAN CORPUSCULAR HEMOGLOBIN 31.7 pg (27.0-34.8); MEAN CORPUSCULAR HGB CONC 32.3 g/dL (32.4-35.8); MEAN CORPUSCULAR VOLUME 98.1 fL (80-100); MEAN PLATELET VOLUME 7.5 fL (7.4-10.4); MONOCYTES # (AUTO) 0.39 x10^3/uL (0.2-0.8); MONOCYTES % (AUTO) 9 % (2-9); NEUTROPHILS # (AUTO) 1.99 x10^3/uL (1.8-6.8); NEUTROPHILS % (AUTO) 44 % (42-75); PLATELET COUNT 374 x10^3/uL (130-400); RED BLOOD COUNT 2.73 x10^6/uL (3.82-5.3); RED CELL DISTRIBUTION WIDTH 18.7 % (9.6-15.2)
[2019-09-06 05:32] LABS: ANION GAP 12 mmol/L (5-15); CALCIUM 7.7 mg/dL (8.5-10.1); CHLORIDE 106 mmol/L (98-107); CREATININE 0.98 mg/dL (0.55-1.02)
[2019-09-06 07:33] VITALS: BP 116/82
[2019-09-06] MEDS: POTASSIUM CHLORIDE 20 MEQ TAB.ER.PRT PO SCH ×2 (08:22→17:44)
[2019-09-06] MEDS: FERROUS SULFATE 325 MG TABLET PO SCH (08:22)
[2019-09-06] MEDS: INSULIN GLARGINE 100 UNITS/ML, PEN SQ-INSULIN SCH ×2 (08:36→21:05)
[2019-09-06 12:58] VITALS: BP 123/86
[2019-09-06 13:04] LABS: ANION GAP 9 mmol/L (5-15); CALCIUM 7.8 mg/dL (8.5-10.1); CHLORIDE 107 mmol/L (98-107)
[2019-09-06 13:05] LABS: CREATININE 0.87 mg/dL (0.55-1.02)
[2019-09-06] MEDS: ACETAMINOPHEN 325 MG TABLET PO PRN ×2 (15:05→21:04)
[2019-09-06 19:59] VITALS: BP 129/91
[2019-09-07 00:15] VITALS: BP 125/81
[2019-09-07] MEDS: SODIUM CHLORIDE 0.9% 1,000 ML IV SCH ×2 (00:17→05:26)
[2019-09-07] MEDS: INSULIN LISPRO 100 UNITS/ML, PEN SQ-INSULIN SCH ×2 (03:16→09:35)
[2019-09-07 05:30] LABS: ALBUMIN 2.6 g/dL (3.4-5.0); ANION GAP 6 mmol/L (5-15); CHLORIDE 113 mmol/L (98-107); MEAN CORPUSCULAR HEMOGLOBIN 31.8 pg (27.0-34.8); MEAN CORPUSCULAR HGB CONC 32.2 g/dL (32.4-35.8); MEAN CORPUSCULAR VOLUME 98.5 fL (80-100); MEAN PLATELET VOLUME 7.3 fL (7.4-10.4); PLATELET COUNT 360 x10^3/uL (130-400)
[2019-09-07 05:35] LABS: ALANINE AMINOTRANSFERASE 59 U/L (12-78); ALKALINE PHOSPHATASE 174 U/L (45-117); BILIRUBIN,TOTAL 0.3 mg/dL (0.2-1.0); CREATININE 0.71 mg/dL (0.55-1.02)
[2019-09-07 06:18] LABS: MD YES
[2019-09-07 06:20] LABS: BASOS#(MANUAL) 0.08 x10^3/uL (0-0.1); BASOS% (MANUAL) 2 % (0-1); EOS#(MANUAL) 0.23 x10^3/uL (0.0-0.4); EOS% (MANUAL) 6 % (1-7); LYMPH#(MANUAL) 2.05 x10^3/uL (1-3.4); LYMPHS% (MANUAL) 54 % (22-44); MONOS#(MANUAL) 0.27 x10^3/uL (0.3-2.7); MONOS% (MANUAL) 7 % (2-9); SEG#(MANUAL) 1.18 x10^3/uL (1.8-6.8); SEGS% (MANUAL) 31 % (42-75)
[2019-09-07 06:21] LABS: <PLATELET ESTIMATE> ADEQUATE; <PLT MORPHOLOGY> NORMAL PLT MORPH; ANISOCYTOSIS 1+; POLYCHROMASIA 1+
[2019-09-07 07:36] VITALS: BP 139/97
[2019-09-07] MEDS: FERROUS SULFATE 325 MG TABLET PO SCH (09:35)
[2019-09-07] MEDS ORDERED: SODIUM CHLORIDE 0.9%, 500ML IVBOLUS ONE (10:00)
[2019-09-07] MEDS ORDERED: INSULIN LISPRO 100 UNITS/ML, PEN SQ-INSULIN SCH (11:00)
[2019-09-07] MEDS ORDERED: INSULIN GLARGINE 100 UNITS/ML, PEN SQ-INSULIN ONE (11:30)
[2019-09-07 13:13] VITALS: BP 129/89
[2019-09-07] MEDS ORDERED: INSULIN GLARGINE 100 UNITS/ML, PEN SQ-INSULIN SCH (21:00)
== END 2019-09-07 15:50 | disposition left against medical advice (07) | DRG 638 ==
LOC: ED 16:00 → EDIP 18:15 → 3N 19:02
PROVIDERS: ADMIT Internal Medicine; ATTEND Internal Medicine
DX: E10.65 Type 1 diabetes mellitus with hyperglycemia (principal); E87.1 Hypo-osmolality and hyponatremia; E10.43 Type 1 diabetes mellitus with diabetic autonomic (poly)neuropathy; K31.84 Gastroparesis; E87.6 Hypokalemia; F12.10 Cannabis abuse, uncomplicated; I10 Essential (primary) hypertension; D50.9 Iron deficiency anemia, unspecified; R79.89 Other specified abnormal findings of blood chemistry; Z87.891 Personal history of nicotine dependence; Z91.040 Latex allergy status; Z91.018 Allergy to other foods; Z53.29 Procedure and treatment not carried out because of patient's decision for other reasons
CPT/HCPCS: 36415; 80048; 80053; 81003; 82010; 82803; 82947; 82962; 83036; 85025; 96361; 96374; 96375; G0378; J2405; J1815; J7030; J7040; J7120

== ENCOUNTER 2019-10-11 17:53 | Inpatient (IN) | payer MEDICAID ==
[~2019-10-11] VITALS: Ht 165.1 cm; Wt 72.9 kg
[~2019-10-11 17:53] MED LIST changes: +METO5TAB57 PO
--- NOTE | 2019-10-11 18:16 | NUR ---
THIS IS A 24 YO F BIB EMS W/ C/O HI FSBS. EMS REPORTS PT TOOK 30 UNITS OF INSULIN AND A "RESCUE DOSE OF INSULIN" SALES AND MARKETING VICE PRESIDENT. PT ALSO RECEIVED 12.5 OF PHENERGAN IM SALES AND MARKETING VICE PRESIDENT. PT TACHYPNEIC, TACHYCARDIC, OTHER VS WDL. PT RESTING ON GURNEY CONNECTED TO ALL MONITORING AND CALL LIGHT IN REACH. FSBS >600. AWAITING ED EVAL.
[2019-10-11] MEDS ORDERED: SODIUM CHLORIDE 0.9% 1,000ML IVBOLUS ONE ×2 (18:30→20:30)
--- NOTE | 2019-10-11 18:31 | NUR ---
NANI ALMEIDA AT BEDSIDE FOR US PIV.
--- NOTE | 2019-10-11 18:48 | NUR ---
BS REPORT RECEIVED FROM MARSHAL ALMEIDA. PT RESTING IN GURNEY, TACHYPNEIC AND TACHYCARDIC ON MONITOR. SKIN IS CLAMMY TO TOUCH. PT ON MONITOR FOR SPO2, ECG, AND BP. RAD AT BS. LABS SENT. SUNI.
--- NOTE | 2019-10-11 18:51 | NUR ---
REPORT GIVEN TO BOWEN ALMEIDA. NANI ALMEIDA STILL WOKRING ON OBATINING PIV ACCESS VIA US. PT CONNECTED TO ALL MONITORING, TACHYPNEIC AND TACHYCARDIC, OTHER VS WDL.
[2019-10-11 19:05] LABS: PH, VENOUS 7.027 pH (7.320-7.420)
[2019-10-11 19:10] LABS: ALANINE AMINOTRANSFERASE 106 U/L (12-78); ANION GAP 29 mmol/L (5-15); CALCIUM 8.5 mg/dL (8.5-10.1); CHLORIDE 105 mmol/L (98-107); CREATININE 1.59 mg/dL (0.55-1.02)
[2019-10-11 19:12] LABS: ALKALINE PHOSPHATASE 549 U/L (45-117); BILIRUBIN,TOTAL 0.4 mg/dL (0.2-1.0); TOTAL PROTEIN 7.7 g/dL (6.4-8.2)
--- NOTE | 2019-10-11 19:17 | NUR ---
NANI ALMEIDA AT ATTEMPTING TO GAIN IV ACCESS. PT CHANGED AFTER URINATING IN [facility]. PT CONDITION UNCHANGED AT THIS TIME. LORELEI.
[2019-10-11 19:26] LABS: ACETONE, SERUM Large (80mg/dL) (Negative)
[2019-10-11 19:37] LABS: BASOPHILS # (AUTO) 0.01 x10^3/uL (0-0.1); BASOPHILS % (AUTO) 0 % (0-1); EOSINOPHILS % (AUTO) 0 % (1-7); LYMPHOCYTES # (AUTO) 0.87 x10^3/uL (1-3.4); LYMPHOCYTES % (AUTO) 16 % (22-44); MD SCAN; MEAN CORPUSCULAR HEMOGLOBIN 31.5 pg (27.0-34.8); MEAN CORPUSCULAR HGB CONC 30.7 g/dL (32.4-35.8); MEAN CORPUSCULAR VOLUME 102.7 fL (80-100); MEAN PLATELET VOLUME 7.6 fL (7.4-10.4); MONOCYTES % (AUTO) 5 % (2-9); NEUTROPHILS # (AUTO) 4.46 x10^3/uL (1.8-6.8); NEUTROPHILS % (AUTO) 79 % (42-75); PLATELET COUNT 454 x10^3/uL (130-400); RED BLOOD COUNT 3.67 x10^6/uL (3.82-5.3)
[2019-10-11] MEDS ORDERED: REGULAR INSULIN 100 UNITS in SODIUM CHLORIDE 0.9% 99 ML IV PRN ×2 (19:43→20:12)
--- NOTE | 2019-10-11 19:50 | NUR ---
REQUEST FOR INSULIN DRIP SENT TO PHARMACY WILL AWAIT ARRIVAL FOR ADMINISTRATION
--- NOTE | 2019-10-11 20:04 | NUR ---
PT MEDICATED PER MAY. HELPED TO BS COMMODE, TRANFERRED SMOOTHLY WITH STAND BY ASSIST. PT GIVEN WARM BLANKETS FOR COMFORT. URINE TUBED TO LAB. CALL LIGHT ON LAP. PT ANOx4, MAEx4. WCTM.
--- NOTE | 2019-10-11 20:06 | NUR ---
TP: PT HAS [facility]. [place] UNABLE TO ACCEPT TRANSFER
[2019-10-11] MEDS: D5%-0.45NACL+KCL 20MEQ 1,000 ML IV SCH ×2 (20:12→22:05)
[2019-10-11] MEDS ORDERED: SODIUM CHLORIDE 0.9% 1,000 ML IV SCH (20:12)
[2019-10-11] MEDS ORDERED: PROMETHAZINE 25 MG/ML, 1ML IM PRN (20:30)
[2019-10-11] MEDS ORDERED: BISACODYL 10 MG SUPP PR PRN (20:30)
[2019-10-11] MEDS ORDERED: DOCUSATE 100 MG CAPSULE PO PRN (20:30)
[2019-10-11] MEDS ORDERED: hydrALAzine 20 MG/ML, 1ML IVPush PRN (20:30)
[2019-10-11] MEDS ORDERED: morphine SULFATE 10 MG/ML, 1ML IVPush PRN (20:30)
[2019-10-11] MEDS ORDERED: ONDANSETRON 2MG/ML, 2ML IVPush PRN (20:30)
[2019-10-11] MEDS ORDERED: POLYETHYLENE GLYCOL 17 GM PACKET PO PRN (20:30)
[2019-10-11] MEDS ORDERED: ONDANSETRON ODT 4 MG PO PRN (20:30)
[2019-10-11 20:31] LABS: MICROSCOPIC INDICATED
[2019-10-11] MEDS: HEPARIN 5,000 UNITS/ML, 1ML SQ SCH (21:24)
[2019-10-11] MEDS ORDERED: METOCLOPRAMIDE 5 MG/ML, 2ML IVPush PRN (22:00)
[2019-10-12 00:54] LABS: ANION GAP 10 mmol/L (5-15); CALCIUM 7.7 mg/dL (8.5-10.1); CHLORIDE 116 mmol/L (98-107); CREATININE 1.06 mg/dL (0.55-1.02)
[2019-10-12 01:06] LABS: FREE T4 (FREE THYROXINE) 0.88 ng/dL (0.76-1.46)
[2019-10-12 02:14] LABS: AMPHETAMINE SCREEN, URINE Negative (Negative); BARBITURATE SCREEN, URINE Negative (Negative); BENZODIAZEPINE SCREEN, URINE Negative (Negative); CANNABINOID SCREEN, URINE Negative (Negative); COCAINE SCREEN, URINE Negative (Negative); METHADONE SCREEN, URINE Negative (Negative); OPIATE SCREEN, URINE Negative (Negative)
[2019-10-12 04:00] VITALS: BP 97/52
[2019-10-12] MEDS: HEPARIN 5,000 UNITS/ML, 1ML SQ SCH (04:42)
[2019-10-12 04:46] LABS: O2 FLOW ROOM AIR L/min
[2019-10-12 05:01] LABS: ALANINE AMINOTRANSFERASE 64 U/L (12-78); ALBUMIN 2.2 g/dL (3.4-5.0); ANION GAP 11 mmol/L (5-15); CALCIUM 7.4 mg/dL (8.5-10.1); CHLORIDE 115 mmol/L (98-107); CHOLESTEROL, TOTAL 137 mg/dL (140-239); CREATININE 0.98 mg/dL (0.55-1.02); TRIGLYCERIDES 251 mg/dL (50-200); VLDL CHOLESTEROL 50 mg/dL (0-25)
[2019-10-12 05:03] LABS: ALKALINE PHOSPHATASE 337 U/L (45-117); BILIRUBIN,TOTAL 0.3 mg/dL (0.2-1.0); CHOL/HDL RATIO 5.7; HDL CHOL % 18 % (28-40); HDL CHOLESTEROL (DIRECT) 24 mg/dL (40-60); LDL CHOLESTEROL,CALCULATED 63 mg/dL (54-169); LDL/HDL RATIO 2.6 (0.5-3.0); TOTAL PROTEIN 5.3 g/dL (6.4-8.2)
[2019-10-12 05:53] LABS: BASOPHILS # (AUTO) 0.06 x10^3/uL (0-0.1); BASOPHILS % (AUTO) 2 % (0-1); EOSINOPHILS # (AUTO) 0.01 x10^3/uL (0-0.4); EOSINOPHILS % (AUTO) 0 % (1-7); LYMPHOCYTES # (AUTO) 1.72 x10^3/uL (1-3.4); LYMPHOCYTES % (AUTO) 46 % (22-44); MD SCAN; MEAN CORPUSCULAR HEMOGLOBIN 31.4 pg (27.0-34.8); MEAN CORPUSCULAR HGB CONC 32.1 g/dL (32.4-35.8); MEAN CORPUSCULAR VOLUME 97.7 fL (80-100); MEAN PLATELET VOLUME 6.7 fL (7.4-10.4); MONOCYTES # (AUTO) 0.46 x10^3/uL (0.2-0.8); MONOCYTES % (AUTO) 12 % (2-9); NEUTROPHILS % (AUTO) 40 % (42-75); PLATELET COUNT 299 x10^3/uL (130-400)
[2019-10-12] MEDS: D5%-0.45NACL+KCL 20MEQ 1,000 ML IV SCH (06:46)
[2019-10-12] MEDS ORDERED: INSULIN GLARGINE 100 UNITS/ML, PEN SQ-INSULIN ONE (08:00)
[2019-10-12] MEDS ORDERED: DEXTROSE 4 GM TAB.CHEW PO PRN (10:00)
[2019-10-12] MEDS: ENOXAPARIN 40 MG/0.4 ML SQ SCH (10:00)
[2019-10-12] MEDS ORDERED: GLUCAGON 1 MG IM PRN (10:00)
[2019-10-12] MEDS ORDERED: DEXTROSE 50%, 50ML SYRINGE IVPush PRN (10:00)
[2019-10-12] MEDS ORDERED: SODIUM CHLORIDE 0.9% 1,000 ML IV SCH (10:00)
[2019-10-12] MEDS: INSULIN LISPRO 100 UNITS/ML, PEN SQ-INSULIN SCH ×3 (10:53→20:05)
[2019-10-12] MEDS: THIAMINE 100MG TABLET PO SCH (10:53)
[2019-10-12 11:35] VITALS: BP 118/83
[2019-10-12] MEDS: SODIUM CHLORIDE FLUSH 10ML SYR IVF SCH (20:06)
[2019-10-12] MEDS: INSULIN GLARGINE 100 UNITS/ML, PEN SQ-INSULIN SCH (20:06)
[2019-10-12 20:18] VITALS: BP 113/78
[2019-10-13] MEDS: OXYcodone IR 5MG TABLET PO PRN ×2 (00:02→11:36)
[2019-10-13 00:09] LABS: ANION GAP 17 mmol/L (5-15); CALCIUM 8.1 mg/dL (8.5-10.1); CHLORIDE 103 mmol/L (98-107); CREATININE 1.19 mg/dL (0.55-1.02)
[2019-10-13 00:51] VITALS: BP 104/68
[2019-10-13 06:53] LABS: MEAN CORPUSCULAR HEMOGLOBIN 31.1 pg (27.0-34.8); MEAN CORPUSCULAR HGB CONC 31.6 g/dL (32.4-35.8); MEAN CORPUSCULAR VOLUME 98.4 fL (80-100); MEAN PLATELET VOLUME 6.4 fL (7.4-10.4); PLATELET COUNT 284 x10^3/uL (130-400); RED BLOOD COUNT 3.08 x10^6/uL (3.82-5.3); RED CELL DISTRIBUTION WIDTH 17.5 % (9.6-15.2)
[2019-10-13 07:06] LABS: ALBUMIN 2.4 g/dL (3.4-5.0); ANION GAP 10 mmol/L (5-15); CALCIUM 8.2 mg/dL (8.5-10.1); CHLORIDE 107 mmol/L (98-107)
[2019-10-13 07:27] LABS: BASOPHILS # (AUTO) 0.02 x10^3/uL (0-0.1); BASOPHILS % (AUTO) 1 % (0-1); EOSINOPHILS # (AUTO) 0.03 x10^3/uL (0-0.4); EOSINOPHILS % (AUTO) 1 % (1-7); LYMPHOCYTES # (AUTO) 1.44 x10^3/uL (1-3.4); LYMPHOCYTES % (AUTO) 62 % (22-44); MD SCAN; MONOCYTES # (AUTO) 0.18 x10^3/uL (0.2-0.8); MONOCYTES % (AUTO) 8 % (2-9); NEUTROPHILS # (AUTO) 0.66 x10^3/uL (1.8-6.8); NEUTROPHILS % (AUTO) 28 % (42-75)
[2019-10-13 07:32] VITALS: BP 116/82
[2019-10-13 07:33] LABS: % IRON SATURATION 11 % (20-55); ALANINE AMINOTRANSFERASE 109 U/L (12-78); ALKALINE PHOSPHATASE 437 U/L (45-117); BILIRUBIN,TOTAL 0.2 mg/dL (0.2-1.0); CREATINE KINASE, TOTAL 54 U/L (26-192); CREATININE 1.02 mg/dL (0.55-1.02); IRON LEVEL 29 mcg/dL (50-170); TOTAL IRON BINDING CAPACITY 253 mcg/dL (250-450); TOTAL PROTEIN 5.6 g/dL (6.4-8.2)
[2019-10-13] MEDS: SODIUM CHLORIDE FLUSH 10ML SYR IVF SCH (08:08)
[2019-10-13] MEDS: INSULIN LISPRO 100 UNITS/ML, PEN SQ-INSULIN SCH (08:08)
[2019-10-13] MEDS: THIAMINE 100MG TABLET PO SCH (08:08)
[2019-10-13] MEDS: INSULIN GLARGINE 100 UNITS/ML, PEN SQ-INSULIN SCH (08:08)
[2019-10-13] MEDS: ENOXAPARIN 40 MG/0.4 ML SQ SCH (08:08)
[2019-10-13] MEDS ORDERED: CHOLECALCIFEROL 400 UNITS TABLET PO SCH (10:00)
[2019-10-13] MEDS ORDERED: INSULIN LISPRO 100 UNITS/ML, PEN SQ-INSULIN SCH ×2 (12:00→16:00)
[2019-10-13] MEDS ORDERED: INSULIN GLARGINE 100 UNITS/ML, PEN SQ-INSULIN SCH ×3 (12:00→21:00)
[2019-10-13 13:31] VITALS: BP 123/74
[2019-10-13] MEDS ORDERED: CEFTRIAXONE PMX 1GM/50ML 50 ML IV SCH (15:30)
[2019-10-13] MEDS ORDERED: CLINDAMYCIN 300 MG CAPSULE PO SCH (15:30)
[2019-10-13] MEDS ORDERED: SODIUM CHLORIDE 0.9% 1,000 ML IV SCH (15:30)
[2019-10-13 17:44] LABS: ANION GAP 13 mmol/L (5-15); CALCIUM 8.6 mg/dL (8.5-10.1); CHLORIDE 93 mmol/L (98-107); CREATININE 1.14 mg/dL (0.55-1.02)
[2019-10-13] MEDS ORDERED: SODIUM CHLORIDE 0.9% 1,000ML IVBOLUS ONE (18:30)
[2019-10-13] MEDS ORDERED: INSULIN LISPRO 100 UNIT/ML, 3ML VIAL SQ-INSULIN ONE (18:30)
[2019-10-13] MEDS ORDERED: INSULIN LISPRO 100 UNITS/ML, PEN SQ-INSULIN ONE (18:30)
[2019-10-14] MEDS ORDERED: SODIUM CHLORIDE 0.9% 1,000 ML IV SCH (15:30)
== END 2019-10-13 19:25 | disposition left against medical advice (07) | DRG 637 ==
LOC: ED 19:37 → EDIP 19:47 → CCU 21:01 → 3N 10-12 11:29
PROVIDERS: ADMIT Internal Medicine; ATTEND Internal Medicine
DX: E10.10 Type 1 diabetes mellitus with ketoacidosis without coma (principal); N17.0 Acute kidney failure with tubular necrosis; L03.90 Cellulitis, unspecified; E10.21 Type 1 diabetes mellitus with diabetic nephropathy; E10.43 Type 1 diabetes mellitus with diabetic autonomic (poly)neuropathy; E55.9 Vitamin D deficiency, unspecified; E78.1 Pure hyperglyceridemia; E78.5 Hyperlipidemia, unspecified; E83.51 Hypocalcemia; E86.0 Dehydration; F12.90 Cannabis use, unspecified, uncomplicated; I10 Essential (primary) hypertension; K31.84 Gastroparesis; L02.92 Furuncle, unspecified; D50.9 Iron deficiency anemia, unspecified; D53.9 Nutritional anemia, unspecified; D63.8 Anemia in other chronic diseases classified elsewhere; F12.10 Cannabis abuse, uncomplicated; R74.0 Nonspecific elevation of levels of transaminase and lactic acid dehydrogenase [LDH]; R62.50 Unspecified lack of expected normal physiological development in childhood; E11.21 Type 2 diabetes mellitus with diabetic nephropathy; R74.8 Abnormal levels of other serum enzymes; R79.89 Other specified abnormal findings of blood chemistry; Z79.4 Long term (current) use of insulin; Z82.5 Family history of asthma and other chronic lower respiratory diseases; Z87.891 Personal history of nicotine dependence; Z91.14 Patient's other noncompliance with medication regimen; Z91.19 Patient's noncompliance with other medical treatment and regimen; Z84.89 Family history of other specified conditions; Z91.040 Latex allergy status; Z91.018 Allergy to other foods
CPT/HCPCS: 36415; 36600; 71045; 76700; 80048; 80053; 80061; 80074; 80307; 81001; 82010; 82306; 82550; 82607; 82803; 82947; 82962; 83036; 83540; 83550; 83735; 84100; 84439; 84443; 85025; 86706; 87081; 87086; 87147; 93005; G0378; J0696; J1644; J1815; J2405; J3480; J7030

== ENCOUNTER 2019-10-19 09:06 | Inpatient (IN) | payer MEDICAID ==
[~2019-10-19] VITALS: Ht 165.1 cm; Wt 67.5 kg
--- NOTE | 2019-10-19 09:14 | NUR ---
FSBS DONE IN [facility]. PT >600.
[2019-10-19] MEDS ORDERED: INSULIN REGULAR 100 UNITS/ML, 3ML VIAL IV ONE (09:30)
[2019-10-19] MEDS ORDERED: SODIUM CHLORIDE 0.9% 1,000ML IVBOLUS ONE ×2 (09:30→12:00)
[2019-10-19] MEDS ORDERED: ONDANSETRON 2MG/ML, 2ML IVPush ONE (09:30)
[2019-10-19] MEDS ORDERED: PLEASE ENTER HEIGHT AND WEIGHT MC SCH (10:00)
--- NOTE | 2019-10-19 10:14 | NUR ---
ATTEMPT X1 TO START IV WITH NO SUCCESS, ERMD AWARE. 2ND RN AT [facility] FOR ATTEMPT. PT ON MONITORS, PROTECTING OWN AIRWAY WELL, SLIGHTLY LABORED BREATHING NOTED. WILL FOLLOW ORDERS.
--- NOTE | 2019-10-19 10:58 | NUR ---
RECEIVED REPORT FROM YOLA ALMEIDA. ASSUMING CARE AT THIS TIME.
[2019-10-19] MEDS ORDERED: ONDANSETRON 2MG/ML, 2ML ONE (11:03)
[2019-10-19 11:04] LABS: BASOPHILS # (AUTO) 0.01 x10^3/uL (0-0.1); BASOPHILS % (AUTO) 0 % (0-1); EOSINOPHILS % (AUTO) 0 % (1-7); LYMPHOCYTES # (AUTO) 1.17 x10^3/uL (1-3.4); LYMPHOCYTES % (AUTO) 15 % (22-44); MD NO; MEAN CORPUSCULAR HGB CONC 31.5 g/dL (32.4-35.8); MEAN CORPUSCULAR VOLUME 98.3 fL (80-100); MEAN PLATELET VOLUME 7.9 fL (7.4-10.4); MONOCYTES # (AUTO) 0.37 x10^3/uL (0.2-0.8); MONOCYTES % (AUTO) 5 % (2-9); NEUTROPHILS # (AUTO) 6.12 x10^3/uL (1.8-6.8); NEUTROPHILS % (AUTO) 80 % (42-75); PLATELET COUNT 550 x10^3/uL (130-400); RED CELL DISTRIBUTION WIDTH 17.9 % (9.6-15.2)
[2019-10-19] MEDS ORDERED: INSULIN LISPRO SINGLE DOSE, ER SQ-INSULIN ONE (11:04)
--- NOTE | 2019-10-19 11:07 | NUR ---
IV STARTED, IVF FLUIDS INFUSING PER ORDERS. PT ON MONITORS, REMAINS WITH SLIGHT INCREASED WORK OF BREATHING, BUT PROTECTING OWN AIRWAY WELL. REPORT GIVEN TO TO ANN ALMEIDA.
--- NOTE | 2019-10-19 11:09 | NUR ---
LABS DRAWN WITH IV STARTED, SENT TO LAB.
[2019-10-19 11:14] LABS: ALANINE AMINOTRANSFERASE 123 U/L (12-78); ALBUMIN 4.1 g/dL (3.4-5.0); ANION GAP 33 mmol/L (5-15); CALCIUM 9.8 mg/dL (8.5-10.1); CHLORIDE 99 mmol/L (98-107); CREATININE 1.51 mg/dL (0.55-1.02)
--- NOTE | 2019-10-19 11:14 | NUR ---
MEDS ADMIN PER MAY. IVF RUNNING. PT GIVEN GAVINO PAWS WARMER PER REQUEST. PT RESTING COMFORTABLY ON GURNEY. NADN. CALL LIGHT IN REACH. FROYLANN.
[2019-10-19 11:19] LABS: ALKALINE PHOSPHATASE 502 U/L (45-117); BILIRUBIN,TOTAL 0.5 mg/dL (0.2-1.0); TOTAL PROTEIN 9.3 g/dL (6.4-8.2)
[2019-10-19] MEDS ORDERED: D5%-0.45NACL+KCL 20MEQ 1,000 ML IV SCH (11:41)
[2019-10-19] MEDS ORDERED: REGULAR INSULIN 100 UNITS in SODIUM CHLORIDE 0.9% 99 ML IV PRN (11:41)
[2019-10-19] MEDS ORDERED: SODIUM CHLORIDE 0.9% 1,000 ML IV SCH (11:41)
[2019-10-19] MEDS ORDERED: POLYETHYLENE GLYCOL 17 GM PACKET PO PRN (12:00)
[2019-10-19] MEDS ORDERED: METOCLOPRAMIDE 5 MG/ML, 2ML IV PRN (12:00)
[2019-10-19] MEDS ORDERED: DEXTROSE 50%, 50ML SYRINGE IVPush PRN (12:00)
[2019-10-19] MEDS ORDERED: GLUCAGON 1 MG IM PRN (12:00)
[2019-10-19] MEDS ORDERED: FAMOTIDINE 20 MG/2 ML IVPush SCH (12:00)
[2019-10-19] MEDS ORDERED: DOCUSATE 100 MG CAPSULE PO PRN (12:00)
[2019-10-19] MEDS ORDERED: DEXTROSE 4 GM TAB.CHEW PO PRN (12:00)
[2019-10-19] MEDS ORDERED: ONDANSETRON 2MG/ML, 2ML IV PRN (12:00)
[2019-10-19] MEDS ORDERED: OXYcodone/APAP 5/325MG TABLET PO PRN (12:00)
[2019-10-19 12:13] LABS: ACETONE, SERUM Large (80mg/dL) (Negative)
--- NOTE | 2019-10-19 12:24 | NUR ---
NOTIFIED DR PRESCOTT OF PT LOW BP. MD STATES TO CONTINUE TO BOLUS PT AND NOTIFY MD IF PT BP DOESN'T RESPOND.
[2019-10-19 12:39] LABS: ANION GAP 24 mmol/L (5-15); CALCIUM 7.7 mg/dL (8.5-10.1); CHLORIDE 111 mmol/L (98-107)
--- NOTE | 2019-10-19 13:03 | NUR ---
NOTIFIED DR PRESCOTT OF CONTINUOUS LOW BP. WANTS CENTRAL LINE TO START PRESSORS. PT MOVED TO TRAUMA ROOM FOR HIGHER LEVEL OF CARE. REPORT GIVEN TO YOLA ALMEIDA.
--- NOTE | 2019-10-19 13:15 | NUR ---
REPORT RECEIVED FROM ANN ALMEIDA. PT MOVED TO T4 AND CARE ASSUMED. DR. PRESCOTT AT BEDSIDE TO SEE PT. PLAN OF CARE DISCUSSED, DR. PRESCOTT AWARE PT NEEDS ADITIONAL IV ACCESS. PICC LINE ORDERED THROUGH IR. K+ GTT STARTED PER ORDERS. PT PLACED ON MONIORS. PT ALERT AND AWAKE, PROTECTING OWN AIRWAY WELL. WILL FOLLOW ORDRS.
[2019-10-19] MEDS ORDERED: VANCOMYCIN PMX 1GM/200ML 200 ML IV ONE (13:30)
[2019-10-19] MEDS ORDERED: VANCOMYCIN PER PHARMACY MC PRN (13:30)
--- NOTE | 2019-10-19 13:34 | NUR ---
IR CALLED, AWARE PT HAS PICC LINE ORDE. IR TECH STATES RADIOLOGIST WILL ASSESS AND CALL WHEN ABLE TO DO PROCEEDURE. SPOKE WITH PHARMACY, PT'S k+ <3.3 (k+ 3.0 @1212), PE POTOCOL DO NOT START INSULN GTT. DR. PRESCOTT CALLED FOR UPDATE, AWAITING CALL BACK. K+ GTT INFUSING. PT REMAINS ON MONITORS. CONT TO MONITOR.
--- NOTE | 2019-10-19 13:44 | NUR ---
PER DR. PRESCOTT, STOP K+ GTT, GIVE PO K+. GIVE IVABX, WHEN FINISHED, RESTART K+ GTT. ALSO, ORDER BMP ONE HOUR POST PO K+ GIVEN. FSBS QHR.
[2019-10-19] MEDS ORDERED: ENOXAPARIN 40 MG/0.4 ML ONE (13:48)
[2019-10-19] MEDS ORDERED: PIPERACILLIN/TAZO/PMX 3.375GM 50 ML ONE ×2 (13:48→19:20)
[2019-10-19] MEDS ORDERED: FAMOTIDINE 20 MG/2 ML ONE (13:48)
[2019-10-19] MEDS ORDERED: POTASSIUM CHLORIDE 20 MEQ TAB.ER.PRT ONE (13:48)
[2019-10-19] MEDS: PIPERACILLIN/TAZO/PMX 3.375GM 50 ML IV SCH ×2 (13:50→19:30)
[2019-10-19] MEDS: ENOXAPARIN 40 MG/0.4 ML SQ SCH (13:53)
--- NOTE | 2019-10-19 13:58 | NUR ---
IR AT [facility] FOR PICC PLACEMENT.
[2019-10-19] MEDS ORDERED: POTASSIUM CHLORIDE 20 MEQ TAB.ER.PRT PO ONE (14:00)
--- NOTE | 2019-10-19 14:30 | NUR ---
DOUBLE LUMEN PERIPHERAL IV STARTED BY IR. NO CENTRAL IV ACCESS OBTAINED AT THIS TIME. WILL LET ADMITTING MD KNOW. PT UP TO VOID, VOIDED 1200CC URINE, SAMPLE SENT TO LAB. WILL ORDER REPEAT BMP PER ADMITTING MD'S ORDERS. PT REMAINS ON MONITORS. PT IS ALERT AND ORIENTED, PROTECTING OWN AIRWAY WELL. PT TOLERATED PO K+ WELL. CONT TO MONITOR.
[2019-10-19 14:42] LABS: MICROSCOPIC INDICATED
--- NOTE | 2019-10-19 14:43 | NUR ---
SPOKE WITH DR. PRESCOTT, MADE AWARE OF PT'S IV STATUS. DR. PRESCOTT TO CHANGE K+ GTT, WILL HANG WHEN ARRIVES FROM PHARMACY. BMP ORDERED.
--- NOTE | 2019-10-19 14:50 | NUR ---
MEDICATIONS REQUESTED FROM PHARMACY.
[2019-10-19] MEDS ORDERED: D5%-0.45NACL+KCL 40MEQ 1,000 ML IV SCH (15:00)
[2019-10-19 15:17] LABS: ANION GAP 16 mmol/L (5-15); CALCIUM 7.5 mg/dL (8.5-10.1); CHLORIDE 112 mmol/L (98-107); CREATININE 0.97 mg/dL (0.55-1.02)
--- NOTE | 2019-10-19 15:41 | NUR ---
SPOKE WITH DR. PRESCOTT, MEDICATION CHANGES MADE PER LAB RESULTS. PT REMAINS ON MONITORS, A&OX4, REMAINS PROTECING OWN AIRWAY WELL. INSULIN GTT REMAINS D/C'D FOR NOW. PT GIVEN WATER PER DR. PRESCOTT OK. CONT TO MONITOR.
[2019-10-19] MEDS: D5%-0.45NACL+KCL 20MEQ 1,000 ML IV SCH (15:50)
--- NOTE | 2019-10-19 15:50 | NUR ---
GAVINO PUENTE REQUESTED FROM PHARM.
[2019-10-19] MEDS ORDERED: INSULIN GLARGINE 100 UNITS/ML, PEN SQ-INSULIN ONE (16:00)
--- NOTE | 2019-10-19 16:53 | NUR ---
PT SLEEPING BED, NO DISTRESS. PT MEDICATED PER ORDERS, WILL CHECK FSBS PER ORDERS. PT REMAINS ON MONITORS, PROTECTING OWN AIRWAY WELL. TOLERATING SIPS OF H20 WELL. CONT TO MONITOR.
--- NOTE | 2019-10-19 17:04 | NUR ---
REPORT TO MIKAELA ALMEIDA FOR LUNCH.
--- NOTE | 2019-10-19 17:20 | NUR ---
BREAK RN: PT SLEEPING RESP EVEN AND UNLABORED. PHARMACY CALLED WILL BE SENDING VANCOMYCIN DOSE SOON.
[2019-10-19] MEDS ORDERED: VANCOMYCIN 1,800 MG in SODIUM CHLORIDE 0.9% 250 ML IV ONE (17:30)
--- NOTE | 2019-10-19 18:04 | NUR ---
PT MOVED TO ER RM39. MARIELA REQUESTED FROM PHARM. PT REMAINS ON MONIORS. PT SLEEPING IN BED, EASY TO ROUSE. PT PROTECING OWN AIRWAY WELL. CONT TO MONITOR.
[2019-10-19 18:51] LABS: CREATININE 0.88 mg/dL (0.55-1.02)
[2019-10-19 18:52] LABS: ANION GAP 19 mmol/L (5-15); CALCIUM 7.8 mg/dL (8.5-10.1); CHLORIDE 110 mmol/L (98-107)
--- NOTE | 2019-10-19 18:59 | NUR ---
REPORT GIVEN TO NAZ ALMEIDA.
--- NOTE | 2019-10-19 19:16 | NUR ---
SPOKE WITH DR. PRESCOTT ABOUT PT'S LAB CHANGES. PER DR. PRESCOTT, PLEASE RESTART INSULIN GTT. NAZ ALMEIDA AWARE, WILL START GTT PER PROTOCOL.
[2019-10-19] MEDS ORDERED: OXYcodone/APAP 5/325MG TABLET ONE (20:05)
[2019-10-19] MEDS: SODIUM CHLORIDE FLUSH 10ML SYR IVF SCH (20:08)
--- NOTE | 2019-10-19 20:09 | NUR ---
pt has c/o headache and requested pain meds for it. pt provided meds per emar
--- NOTE | 2019-10-19 20:42 | NUR ---
pt resting in bed, pt requested another blanket, pt was provided a blanket. chart writer will continue to monitor pt vss
--- NOTE | 2019-10-19 21:31 | NUR ---
pt resting in bed,pt has no wants or needs at this time. chief writer will continue to monitor pt vss
[2019-10-19 23:04] LABS: ANION GAP 22 mmol/L (5-15); CALCIUM 7.4 mg/dL (8.5-10.1); CHLORIDE 112 mmol/L (98-107); CREATININE 1.16 mg/dL (0.55-1.02)
[2019-10-20] MEDS ORDERED: PIPERACILLIN/TAZO/PMX 3.375GM 50 ML ONE (01:15)
[2019-10-20] MEDS: PIPERACILLIN/TAZO/PMX 3.375GM 50 ML IV SCH (01:25)
[2019-10-20] MEDS: D5%-0.45NACL+KCL 20MEQ 1,000 ML IV SCH (01:25)
--- NOTE | 2019-10-20 02:25 | NUR ---
pt bs 95 per insulin orders to titrate insulin to keep pt bs between 101-199 pt insulin titrated down to 1u/hr
--- NOTE | 2019-10-20 02:26 | NUR ---
pt resting in bed watching phone pt has no c/o at this time. racebook writer will continue to monitor pt vss
[2019-10-20 02:31] LABS: ANION GAP 12 mmol/L (5-15); CALCIUM 7.6 mg/dL (8.5-10.1); CHLORIDE 112 mmol/L (98-107); CREATININE 1.08 mg/dL (0.55-1.02)
--- NOTE | 2019-10-20 02:48 | NUR ---
BREAK RN: PATIENT NEEDED TO USE RESTROOM. PATIENT AMBULATORY WITHOUT COMPLICATIONS. TOLERATED MOVING WELL. NO NOTED FURTHER NEEDS.
[2019-10-20] MEDS ORDERED: VANCOMYCIN 1,400 MG in SODIUM CHLORIDE 0.9% 250 ML IV SCH (06:00)
[2019-10-20] MEDS: INSULIN LISPRO 100 UNITS/ML, PEN SQ-INSULIN SCH ×4 (06:49→20:06)
[2019-10-20] MEDS ORDERED: INSULIN GLARGINE 100 UNITS/ML, PEN SQ-INSULIN SCH (07:00)
[2019-10-20] MEDS: SODIUM CHLORIDE FLUSH 10ML SYR IVF SCH ×2 (09:00→20:07)
[2019-10-20] MEDS: ENOXAPARIN 40 MG/0.4 ML SQ SCH (10:48)
[2019-10-20] MEDS: SODIUM CHLORIDE 0.9% 1,000 ML IV SCH ×2 (10:51→20:05)
[2019-10-20 11:01] VITALS: BP 107/74
[2019-10-20] MEDS ORDERED: INSULIN LISPRO 100 UNITS/ML, PEN SQ-INSULIN SCH (13:30)
[2019-10-20] MEDS ORDERED: INSULIN LISPRO 100 UNITS/ML, PEN SQ-INSULIN ONE (13:30)
[2019-10-20 15:03] VITALS: BP 111/75
[2019-10-20] MEDS: INSULIN GLARGINE 100 UNITS/ML, PEN SQ-INSULIN SCH (20:07)
[2019-10-20 20:09] VITALS: BP 114/80
[2019-10-21 01:27] VITALS: BP 129/88
[2019-10-21] MEDS: SODIUM CHLORIDE 0.9% 1,000 ML IV SCH ×2 (05:20→15:12)
[2019-10-21 05:44] LABS: ANION GAP 9 mmol/L (5-15); CALCIUM 7.7 mg/dL (8.5-10.1); CHLORIDE 110 mmol/L (98-107); CREATININE 0.72 mg/dL (0.55-1.02)
[2019-10-21] MEDS: INSULIN LISPRO 100 UNITS/ML, PEN SQ-INSULIN SCH ×4 (07:00→20:06)
[2019-10-21 07:09] VITALS: BP 112/79
[2019-10-21] MEDS: SODIUM CHLORIDE FLUSH 10ML SYR IVF SCH ×2 (09:00→20:05)
[2019-10-21] MEDS: INSULIN GLARGINE 100 UNITS/ML, PEN SQ-INSULIN SCH ×2 (11:11→20:07)
[2019-10-21] MEDS: ENOXAPARIN 40 MG/0.4 ML SQ SCH (11:13)
[2019-10-21 15:59] VITALS: BP 122/84
[2019-10-21 20:43] VITALS: BP 129/89
[2019-10-22] MEDS: SODIUM CHLORIDE 0.9% 1,000 ML IV SCH ×2 (00:34→11:30)
[2019-10-22 02:02] VITALS: BP 106/73
[2019-10-22 05:25] LABS: ANION GAP 8 mmol/L (5-15); CALCIUM 7.9 mg/dL (8.5-10.1); CHLORIDE 112 mmol/L (98-107); CREATININE 0.55 mg/dL (0.55-1.02)
[2019-10-22 05:34] LABS: MEAN CORPUSCULAR HEMOGLOBIN 31.5 pg (27.0-34.8); MEAN CORPUSCULAR HGB CONC 32.9 g/dL (32.4-35.8); MEAN CORPUSCULAR VOLUME 95.8 fL (80-100); MEAN PLATELET VOLUME 7.1 fL (7.4-10.4); PLATELET COUNT 291 x10^3/uL (130-400); RED CELL DISTRIBUTION WIDTH 17.8 % (9.6-15.2)
[2019-10-22 07:17] VITALS: BP 116/82
[2019-10-22] MEDS: INSULIN LISPRO 100 UNITS/ML, PEN SQ-INSULIN SCH ×3 (08:09→16:38)
[2019-10-22] MEDS: INSULIN GLARGINE 100 UNITS/ML, PEN SQ-INSULIN SCH (08:10)
[2019-10-22] MEDS: SODIUM CHLORIDE FLUSH 10ML SYR IVF SCH (08:12)
[2019-10-22 08:20] LABS: BASOPHILS # (AUTO) 0.05 x10^3/uL (0-0.1); BASOPHILS % (AUTO) 2 % (0-1); EOSINOPHILS # (AUTO) 0.02 x10^3/uL (0-0.4); EOSINOPHILS % (AUTO) 1 % (1-7); LYMPHOCYTES # (AUTO) 1.58 x10^3/uL (1-3.4); LYMPHOCYTES % (AUTO) 57 % (22-44); MD SCAN; MONOCYTES # (AUTO) 0.43 x10^3/uL (0.2-0.8); MONOCYTES % (AUTO) 15 % (2-9); NEUTROPHILS # (AUTO) 0.72 x10^3/uL (1.8-6.8); NEUTROPHILS % (AUTO) 26 % (42-75)
[2019-10-22 10:04] LABS: MEAN CORPUSCULAR HEMOGLOBIN 30.4 pg (27.0-34.8); MEAN CORPUSCULAR HGB CONC 31.5 g/dL (32.4-35.8); MEAN CORPUSCULAR VOLUME 96.7 fL (80-100); PLATELET COUNT 338 x10^3/uL (130-400); RED BLOOD COUNT 3.14 x10^6/uL (3.82-5.3); RED CELL DISTRIBUTION WIDTH 17.2 % (9.6-15.2)
[2019-10-22 11:06] LABS: BASOPHILS # (AUTO) 0.04 x10^3/uL (0-0.1); BASOPHILS % (AUTO) 1 % (0-1); EOSINOPHILS # (AUTO) 0.02 x10^3/uL (0-0.4); EOSINOPHILS % (AUTO) 1 % (1-7); LYMPHOCYTES # (AUTO) 1.17 x10^3/uL (1-3.4); LYMPHOCYTES % (AUTO) 42 % (22-44); MD SCAN; MONOCYTES # (AUTO) 0.36 x10^3/uL (0.2-0.8); MONOCYTES % (AUTO) 13 % (2-9); NEUTROPHILS # (AUTO) 1.17 x10^3/uL (1.8-6.8); NEUTROPHILS % (AUTO) 43 % (42-75)
[2019-10-22] MEDS: ENOXAPARIN 40 MG/0.4 ML SQ SCH (12:00)
[2019-10-22 13:22] VITALS: BP 127/85
[2019-10-22] MEDS ORDERED: INSU100I13 SQ-INSULIN (15:01)
== END 2019-10-22 19:26 | disposition home or self-care (01) | DRG 638 ==
LOC: ED 09:24 → EDIP 11:24 → CCU 10-20 03:33 → 3N 10-20 09:10
PROVIDERS: ADMIT Internal Medicine; ATTEND Hospitalist
PROC: 05HB33Z Insertion of Infusion Device into Right Basilic Vein, Percutaneous Approach (ICD-10-PCS; principal; 2019-10-19)
PROC: B54MZZA Ultrasonography of Right Upper Extremity Veins, Guidance (ICD-10-PCS; 2019-10-19)
DX: E10.10 Type 1 diabetes mellitus with ketoacidosis without coma (principal); N17.9 Acute kidney failure, unspecified; D75.89 Other specified diseases of blood and blood-forming organs; D50.9 Iron deficiency anemia, unspecified; E10.21 Type 1 diabetes mellitus with diabetic nephropathy; E10.43 Type 1 diabetes mellitus with diabetic autonomic (poly)neuropathy; E55.9 Vitamin D deficiency, unspecified; E78.1 Pure hyperglyceridemia; E86.0 Dehydration; E78.5 Hyperlipidemia, unspecified; F12.90 Cannabis use, unspecified, uncomplicated; F17.200 Nicotine dependence, unspecified, uncomplicated; I10 Essential (primary) hypertension; K31.84 Gastroparesis; Z79.4 Long term (current) use of insulin; Z83.3 Family history of diabetes mellitus; Z91.19 Patient's noncompliance with other medical treatment and regimen; I95.9 Hypotension, unspecified; Z91.040 Latex allergy status; Z91.018 Allergy to other foods
CPT/HCPCS: 36415; J3490; 36573; 71045; 80048; 80053; 81001; 82010; 82533; 82803; 82947; 82962; 83690; 83735; 84100; 84703; 85025; 87040; 87081; 93005; G0378; J1650; J1815; J2405; J2543; J3370; C1751; J3480; J7030; J7050

== ENCOUNTER 2019-11-09 14:34 | Inpatient (IN) | payer MEDICAID ==
[~2019-11-09] VITALS: Ht 165.1 cm; Wt 67.4 kg
--- NOTE | 2019-11-09 15:00 | NUR ---
INCOME TAX MANAGER: GLUCOMETER READS "HI"
--- NOTE | 2019-11-09 15:27 | NUR ---
PT HAS HIGH BLOOD SUGAR. PT TACHIPNIC AND MOANING. PT NOT COOPERATING W ANSWERING QUESTIONS. STATES SHE WAS JUST IN [place], DOENST REMEMBER WHEN SHE GOT OUT. CANNED FOOD RECONDITIONING INSPECTOR APPLIED, US IV IN ATTEMPT
[2019-11-09] MEDS ORDERED: SODIUM CHLORIDE 0.9% 1,000ML IVBOLUS ONE ×2 (15:30→16:00)
[2019-11-09] MEDS ORDERED: ONDANSETRON 2MG/ML, 2ML IVPush ONE (15:30)
--- NOTE | 2019-11-09 15:42 | NUR ---
LAB AT BEDSIDE.
[2019-11-09] MEDS ORDERED: ONDANSETRON 2MG/ML, 2ML ONE (15:46)
[2019-11-09] MEDS ORDERED: SODIUM CHLORIDE 0.9% 1,000 ML IV SCH (15:54)
[2019-11-09] MEDS ORDERED: ONDANSETRON 2MG/ML, 2ML IV PRN (16:00)
[2019-11-09] MEDS ORDERED: POLYETHYLENE GLYCOL 17 GM PACKET PO PRN (16:00)
[2019-11-09] MEDS ORDERED: DOCUSATE 100 MG CAPSULE PO PRN (16:00)
[2019-11-09] MEDS ORDERED: ACETAMINOPHEN 325 MG TABLET PO PRN (16:00)
[2019-11-09 16:05] LABS: ALANINE AMINOTRANSFERASE 263 U/L (12-78); ALBUMIN 3.5 g/dL (3.4-5.0); ANION GAP 31 mmol/L (5-15); CALCIUM 8.2 mg/dL (8.5-10.1); CHLORIDE 98 mmol/L (98-107); CREATININE 1.25 mg/dL (0.55-1.02)
[2019-11-09 16:07] LABS: ALKALINE PHOSPHATASE 490 U/L (45-117); BILIRUBIN,TOTAL 0.6 mg/dL (0.2-1.0); TOTAL PROTEIN 7.9 g/dL (6.4-8.2)
[2019-11-09 16:26] LABS: BASOPHILS # (AUTO) 0.02 x10^3/uL (0-0.1); BASOPHILS % (AUTO) 0 % (0-1); EOSINOPHILS # (AUTO) 0.03 x10^3/uL (0-0.4); EOSINOPHILS % (AUTO) 0 % (1-7); LYMPHOCYTES % (AUTO) 34 % (22-44); MD MORPH REVIEW ONLY; MEAN CORPUSCULAR HEMOGLOBIN 30.3 pg (27.0-34.8); MEAN CORPUSCULAR VOLUME 103.6 fL (80-100); MEAN PLATELET VOLUME 8.6 fL (7.4-10.4); MONOCYTES # (AUTO) 0.73 x10^3/uL (0.2-0.8); MONOCYTES % (AUTO) 7 % (2-9); NEUTROPHILS # (AUTO) 5.74 x10^3/uL (1.8-6.8); NEUTROPHILS % (AUTO) 58 % (42-75); PLATELET COUNT 652 x10^3/uL (130-400); RED BLOOD COUNT 3.61 x10^6/uL (3.82-5.3); RED CELL DISTRIBUTION WIDTH 18.7 % (9.6-15.2)
[2019-11-09 16:28] LABS: <PLATELET ESTIMATE> INCREASED; <PLT MORPHOLOGY> NORMAL PLT MORPH; ANISOCYTOSIS 1+; OVALOCYTES 1+; POLYCHROMASIA 1+
[2019-11-09 16:29] LABS: MEAN CORPUSCULAR HGB CONC 29.3 g/dL (32.4-35.8)
[2019-11-09] MEDS: REGULAR INSULIN 100 UNITS in SODIUM CHLORIDE 0.9% 99 ML IV PRN (16:30)
[2019-11-09] MEDS ORDERED: HEPARIN 5,000 UNITS/ML, 1ML ONE (16:47)
[2019-11-09] MEDS: HEPARIN 5,000 UNITS/ML, 1ML SQ SCH (16:50)
[2019-11-09 17:07] LABS: ACETONE, SERUM Large (80mg/dL) (Negative)
--- NOTE | 2019-11-09 17:22 | NUR ---
ATTEMPT TO GIVE REPORT
--- NOTE | 2019-11-09 17:58 | NUR ---
REPORT TO TAMIKA FRAIRE READY FOR TRANSPORT
[2019-11-09 18:35] LABS: ANION GAP 29 mmol/L (5-15); CALCIUM 7.6 mg/dL (8.5-10.1); CHLORIDE 107 mmol/L (98-107); CREATININE 1.38 mg/dL (0.55-1.02)
[2019-11-09 19:57] LABS: MICROSCOPIC AUTO
[2019-11-09 21:23] LABS: ANION GAP 30 mmol/L (5-15); CALCIUM 7.6 mg/dL (8.5-10.1); CHLORIDE 111 mmol/L (98-107); CREATININE 1.33 mg/dL (0.55-1.02)
[2019-11-09] MEDS: D5%-0.45NACL+KCL 20MEQ 1,000 ML IV SCH (22:48)
[2019-11-10 00:55] LABS: ANION GAP 18 mmol/L (5-15); CALCIUM 7.2 mg/dL (8.5-10.1); CHLORIDE 121 mmol/L (98-107); CREATININE 1.28 mg/dL (0.55-1.02)
[2019-11-10 03:55] LABS: ANION GAP 15 mmol/L (5-15); CALCIUM 7.3 mg/dL (8.5-10.1); CHLORIDE 116 mmol/L (98-107); CREATININE 1.23 mg/dL (0.55-1.02)
[2019-11-10 04:00] VITALS: BP 100/61
[2019-11-10] MEDS: D5%-0.45NACL+KCL 20MEQ 1,000 ML IV SCH ×4 (07:01→23:46)
[2019-11-10] MEDS: HEPARIN 5,000 UNITS/ML, 1ML SQ SCH ×4 (08:00→23:46)
[2019-11-10 10:25] LABS: ALBUMIN 2.6 g/dL (3.4-5.0); ANION GAP 13 mmol/L (5-15); CALCIUM 7.6 mg/dL (8.5-10.1); CHLORIDE 110 mmol/L (98-107)
[2019-11-10 10:29] LABS: ALANINE AMINOTRANSFERASE 163 U/L (12-78); ALKALINE PHOSPHATASE 273 U/L (45-117); BILIRUBIN,TOTAL 0.3 mg/dL (0.2-1.0); CREATININE 1.17 mg/dL (0.55-1.02); TOTAL PROTEIN 5.9 g/dL (6.4-8.2)
[2019-11-10 10:30] LABS: BILIRUBIN, DIRECT < 0.1 mg/dL (0.1-0.2); BILIRUBIN,INDIRECT 0.2 mg/dL (0.0-2.0)
[2019-11-10 12:35] LABS: ANION GAP 13 mmol/L (5-15); CALCIUM 7.9 mg/dL (8.5-10.1); CHLORIDE 108 mmol/L (98-107); CREATININE 1.13 mg/dL (0.55-1.02)
[2019-11-10] MEDS: REGULAR INSULIN 100 UNITS in SODIUM CHLORIDE 0.9% 99 ML IV PRN (15:44)
[2019-11-10 16:34] LABS: ANION GAP 13 mmol/L (5-15); CALCIUM 7.5 mg/dL (8.5-10.1); CHLORIDE 107 mmol/L (98-107); CREATININE 1.17 mg/dL (0.55-1.02)
[2019-11-10 20:23] LABS: ANION GAP 13 mmol/L (5-15); CALCIUM 7.5 mg/dL (8.5-10.1); CHLORIDE 108 mmol/L (98-107); CREATININE 1.27 mg/dL (0.55-1.02)
[2019-11-11 00:30] LABS: ANION GAP 8 mmol/L (5-15); CALCIUM 7.6 mg/dL (8.5-10.1); CHLORIDE 115 mmol/L (98-107)
[2019-11-11 04:00] VITALS: BP 124/76
[2019-11-11 04:52] LABS: MEAN CORPUSCULAR HEMOGLOBIN 30.3 pg (27.0-34.8); MEAN CORPUSCULAR HGB CONC 31.3 g/dL (32.4-35.8); MEAN CORPUSCULAR VOLUME 96.8 fL (80-100); MEAN PLATELET VOLUME 6.9 fL (7.4-10.4); PLATELET COUNT 328 x10^3/uL (130-400); RED BLOOD COUNT 2.88 x10^6/uL (3.82-5.3); RED CELL DISTRIBUTION WIDTH 17.8 % (9.6-15.2)
[2019-11-11 05:00] LABS: ANION GAP 7 mmol/L (5-15); CALCIUM 7.8 mg/dL (8.5-10.1); CHLORIDE 116 mmol/L (98-107)
[2019-11-11 05:10] LABS: MD YES
[2019-11-11 05:12] LABS: <PLATELET ESTIMATE> ADEQUATE; ANISOCYTOSIS 1+; EOS#(MANUAL) 0.03 x10^3/uL (0.0-0.4); EOS% (MANUAL) 1 % (1-7); LYMPH#(MANUAL) 1.97 x10^3/uL (1-3.4); LYMPHS% (MANUAL) 58 % (22-44); MONOS% (MANUAL) 3 % (2-9); OVALOCYTES 1+; POLYCHROMASIA 1+; SEG#(MANUAL) 1.29 x10^3/uL (1.8-6.8); SEGS% (MANUAL) 38 % (42-75)
[2019-11-11 05:13] LABS: <PLT MORPHOLOGY> NORMAL PLT MORPH
[2019-11-11] MEDS ORDERED: DEXTROSE 50%, 50ML SYRINGE IVPush PRN (07:30)
[2019-11-11] MEDS ORDERED: DEXTROSE 4 GM TAB.CHEW PO PRN (07:30)
[2019-11-11] MEDS ORDERED: SODIUM CHLORIDE 0.9% 1,000 ML IV SCH (07:30)
[2019-11-11] MEDS ORDERED: GLUCAGON 1 MG IM PRN (07:30)
[2019-11-11] MEDS: HEPARIN 5,000 UNITS/ML, 1ML SQ SCH ×3 (08:00→20:45)
[2019-11-11] MEDS: INSULIN GLARGINE 100 UNITS/ML, PEN SQ-INSULIN SCH ×2 (08:05→20:42)
[2019-11-11] MEDS: SODIUM CHLORIDE FLUSH 10ML SYR IVF SCH ×2 (08:06→20:42)
[2019-11-11 09:04] LABS: ANION GAP 11 mmol/L (5-15); CALCIUM 8.6 mg/dL (8.5-10.1); CHLORIDE 114 mmol/L (98-107)
[2019-11-11] MEDS: SODIUM CHLORIDE 0.9% 1,000 ML IV SCH ×2 (10:05→20:41)
[2019-11-11] MEDS ORDERED: INSULIN LISPRO 100 UNITS/ML, PEN SQ-INSULIN SCH (11:00)
[2019-11-11] MEDS: INSULIN LISPRO 100 UNITS/ML, PEN SQ-INSULIN SCH ×3 (11:31→20:41)
[2019-11-11 13:42] LABS: ANION GAP 11 mmol/L (5-15); CALCIUM 8.4 mg/dL (8.5-10.1); CHLORIDE 109 mmol/L (98-107); CREATININE 0.99 mg/dL (0.55-1.02)
[2019-11-11] MEDS ORDERED: INSULIN LISPRO 100 UNITS/ML, PEN SQ-INSULIN ONE (14:00)
[2019-11-11 18:42] VITALS: BP 142/101
[2019-11-11] MEDS ORDERED: ENALAPRILAT 1.25 MG/ML, 1ML IV PRN (19:30)
[2019-11-11 21:09] VITALS: BP 130/89
[2019-11-12 02:24] VITALS: BP 151/98
[2019-11-12] MEDS: SODIUM CHLORIDE 0.9% 1,000 ML IV SCH ×2 (03:57→13:30)
[2019-11-12 06:14] LABS: ALBUMIN 2.5 g/dL (3.4-5.0); ANION GAP 10 mmol/L (5-15); CALCIUM 8.3 mg/dL (8.5-10.1); CHLORIDE 111 mmol/L (98-107)
[2019-11-12 06:18] LABS: ALANINE AMINOTRANSFERASE 190 U/L (12-78); ALKALINE PHOSPHATASE 301 U/L (45-117); BILIRUBIN,TOTAL 0.2 mg/dL (0.2-1.0); CREATININE 0.77 mg/dL (0.55-1.02); TOTAL PROTEIN 5.6 g/dL (6.4-8.2)
[2019-11-12 06:20] LABS: MEAN CORPUSCULAR HEMOGLOBIN 30.7 pg (27.0-34.8); MEAN CORPUSCULAR HGB CONC 32.3 g/dL (32.4-35.8); MEAN CORPUSCULAR VOLUME 95.2 fL (80-100); MEAN PLATELET VOLUME 7.5 fL (7.4-10.4); PLATELET COUNT 267 x10^3/uL (130-400); RED BLOOD COUNT 2.76 x10^6/uL (3.82-5.3); RED CELL DISTRIBUTION WIDTH 17.9 % (9.6-15.2)
[2019-11-12 06:51] LABS: BASOPHILS # (AUTO) 0.04 x10^3/uL (0-0.1); BASOPHILS % (AUTO) 2 % (0-1); EOSINOPHILS # (AUTO) 0.04 x10^3/uL (0-0.4); EOSINOPHILS % (AUTO) 2 % (1-7); LYMPHOCYTES # (AUTO) 1.15 x10^3/uL (1-3.4); LYMPHOCYTES % (AUTO) 52 % (22-44); MD SCAN; MONOCYTES # (AUTO) 0.25 x10^3/uL (0.2-0.8); MONOCYTES % (AUTO) 11 % (2-9); NEUTROPHILS # (AUTO) 0.75 x10^3/uL (1.8-6.8); NEUTROPHILS % (AUTO) 34 % (42-75)
[2019-11-12 07:05] VITALS: BP 139/104
[2019-11-12] MEDS ORDERED: SODIUM CHLORIDE 0.9% 1,000 ML IV SCH (07:30)
[2019-11-12 07:52] VITALS: BP 130/84
[2019-11-12] MEDS: HEPARIN 5,000 UNITS/ML, 1ML SQ SCH ×2 (08:00→16:00)
[2019-11-12] MEDS ORDERED: INSULIN GLARGINE 100 UNITS/ML, PEN SQ-INSULIN SCH ×2 (09:30→21:00)
[2019-11-12] MEDS: SODIUM CHLORIDE FLUSH 10ML SYR IVF SCH (09:33)
[2019-11-12] MEDS: INSULIN LISPRO 100 UNITS/ML, PEN SQ-INSULIN SCH ×3 (09:33→16:00)
[2019-11-12 10:06] VITALS: BP 151/97
[2019-11-12 12:46] VITALS: BP 131/89
== END 2019-11-12 18:20 | disposition left against medical advice (07) | DRG 637 ==
LOC: ED 17:38 → CCU 17:50 → 3N 11-11 14:37
PROVIDERS: ADMIT Internal Medicine; ATTEND Internal Medicine
PROC: 0T9B70Z Drainage of Bladder with Drainage Device, Via Natural or Artificial Opening (ICD-10-PCS; principal; 2019-11-09)
DX: E10.10 Type 1 diabetes mellitus with ketoacidosis without coma (principal); G93.41 Metabolic encephalopathy; J96.00 Acute respiratory failure, unspecified whether with hypoxia or hypercapnia; N17.0 Acute kidney failure with tubular necrosis; E87.1 Hypo-osmolality and hyponatremia; D53.9 Nutritional anemia, unspecified; E55.9 Vitamin D deficiency, unspecified; D72.819 Decreased white blood cell count, unspecified; E10.43 Type 1 diabetes mellitus with diabetic autonomic (poly)neuropathy; E78.5 Hyperlipidemia, unspecified; D63.8 Anemia in other chronic diseases classified elsewhere; F12.90 Cannabis use, unspecified, uncomplicated; I10 Essential (primary) hypertension; K31.84 Gastroparesis; R74.0 Nonspecific elevation of levels of transaminase and lactic acid dehydrogenase [LDH]; T38.3X6A Underdosing of insulin and oral hypoglycemic [antidiabetic] drugs, initial encounter; Z79.4 Long term (current) use of insulin; Z91.19 Patient's noncompliance with other medical treatment and regimen; Z91.040 Latex allergy status
CPT/HCPCS: 36415; 71045; 80048; 80053; 80076; 81001; 82010; 82803; 82947; 82962; 83690; 83735; 84100; 85025; 87040; 87081; 93005; 96374; G0378; J1644; J1815; J2405; J3480; J7030

== ENCOUNTER 2019-11-30 12:20 | Inpatient (IN) | payer MEDICAID ==
[~2019-11-30] VITALS: Ht 165.1 cm; Wt 71.1 kg
--- NOTE | 2019-11-30 12:30 | NUR ---
task rn: 24 Y/O FEMALE BIB AMBULANCE WITH C/O SOB. PER REPORT PT WAS HAVING KUSSMAL BREATHING AND HER HOME GLUCOMETER READ "HIGH" PER PT, "I STARTED HAVING A HARD TIME BREATHING SINCE 10 THIS MORNING. MY GLUCOMETER HAS JUST BEEN READING HIGH." PT STATES SHE HAS BEEN TAKING HER SLIDING SCALE INSULIN. PT ATTACHED TO NIBP, ASSET PROTECTION SPECIALIST, CONT PULSE OX.
--- NOTE | 2019-11-30 12:40 | NUR ---
HOSPITAL GLUCOMETER READING "HI" ATTEMPTING PIV ACCESS
--- NOTE | 2019-11-30 13:02 | NUR ---
bedside report to ELLE Neal
[2019-11-30] MEDS ORDERED: SODIUM CHLORIDE 0.9% 1,000 ML IV ONE (13:07)
--- NOTE | 2019-11-30 13:11 | NUR ---
TASK RN: EDUCATED PATIENT REGARDING BEING NONCOMPLIANT WITH INSULIN AND DIABETIC CARE REGIMEN. PT VERBALIZED UNDERSTANDING.
[2019-11-30 13:27] LABS: PH, VENOUS 6.913 pH (7.320-7.420)
[2019-11-30] MEDS ORDERED: SODIUM CHLORIDE 0.9% 1,000ML IVBOLUS ONE ×2 (13:30)
[2019-11-30] MEDS ORDERED: SODIUM CHLORIDE FLUSH 10ML SYR IVF ONE (13:30)
[2019-11-30 13:34] LABS: ALBUMIN 3.2 g/dL (3.4-5.0); ANION GAP 30 mmol/L (5-15); CALCIUM 9.1 mg/dL (8.5-10.1); CHLORIDE 96 mmol/L (98-107); CREATININE 1.21 mg/dL (0.55-1.02)
[2019-11-30] MEDS ORDERED: REGULAR INSULIN 100 UNITS in SODIUM CHLORIDE 0.9% 99 ML IV PRN ×2 (13:35→15:37)
[2019-11-30] MEDS ORDERED: SODIUM BICARB 8.4%, 50ML SYRINGE ONE (13:53)
[2019-11-30] MEDS ORDERED: SODIUM BICARB 8.4%, 50ML SYRINGE IVPush ONE ×2 (14:00)
[2019-11-30 14:05] LABS: ACETONE, SERUM Large (80mg/dL) (Negative); MD YES
[2019-11-30 14:09] LABS: MEAN CORPUSCULAR VOLUME 106.3 fL (80-100); MEAN PLATELET VOLUME 8.2 fL (7.4-10.4); PLATELET COUNT 504 x10^3/uL (130-400); RED BLOOD COUNT 3.39 x10^6/uL (3.82-5.3); RED CELL DISTRIBUTION WIDTH 19.9 % (9.6-15.2)
[2019-11-30 14:19] LABS: BASOS#(MANUAL) 0.08 x10^3/uL (0-0.1); BASOS% (MANUAL) 1 % (0-1); LYMPHS% (MANUAL) 29 % (22-44); MONOS#(MANUAL) 0.61 x10^3/uL (0.3-2.7); MONOS% (MANUAL) 8 % (2-9); MYELOCYTES# (MANUAL) 0.08 x10^3/uL (0-0); MYELOCYTES% (MANUAL) 1 % (0-0); SEG#(MANUAL) 4.64 x10^3/uL (1.8-6.8); SEGS% (MANUAL) 61 % (42-75)
[2019-11-30 14:20] LABS: <PLATELET ESTIMATE> INCREASED; <PLT MORPHOLOGY> NORMAL PLT MORPH; ANISOCYTOSIS 1+; OVALOCYTES 1+; POLYCHROMASIA 1+
[2019-11-30] MEDS ORDERED: SODIUM CHLORIDE FLUSH 10ML SYR IVF PRN (14:30)
[2019-11-30 15:00] LABS: MEAN CORPUSCULAR HGB CONC 29.2 g/dL (32.4-35.8)
[2019-11-30] MEDS ORDERED: DEXTROSE 50%, 50ML SYRINGE IVPush PRN (16:00)
[2019-11-30] MEDS ORDERED: GLUCAGON 1 MG IM PRN (16:00)
[2019-11-30] MEDS ORDERED: DEXTROSE 4 GM TAB.CHEW PO PRN (16:00)
[2019-11-30 16:11] LABS: ANION GAP 31 mmol/L (5-15); CALCIUM 8.5 mg/dL (8.5-10.1); CHLORIDE 101 mmol/L (98-107); CREATININE 1.28 mg/dL (0.55-1.02)
[2019-11-30] MEDS: SODIUM CHLORIDE 0.9% 1,000 ML IV SCH ×3 (16:14→21:15)
[2019-11-30] MEDS: ENOXAPARIN 40 MG/0.4 ML SQ SCH (17:01)
[2019-11-30 17:41] LABS: MICROSCOPIC INDICATED
[2019-11-30 20:16] LABS: ANION GAP 26 mmol/L (5-15); CALCIUM 8.5 mg/dL (8.5-10.1); CHLORIDE 111 mmol/L (98-107); CREATININE 1.27 mg/dL (0.55-1.02)
[2019-11-30] MEDS: D5%-0.45NACL+KCL 20MEQ 1,000 ML IV SCH ×2 (21:09→21:15)
[2019-11-30] MEDS: SODIUM CHLORIDE FLUSH 10ML SYR IVF SCH (21:09)
[2019-12-01] MEDS: ONDANSETRON 2MG/ML, 2ML IV PRN ×2 (00:45→15:20)
[2019-12-01] MEDS: ACETAMINOPHEN 325 MG TABLET PO PRN ×4 (00:49→21:14)
[2019-12-01 01:00] LABS: ANION GAP 16 mmol/L (5-15); CALCIUM 8.6 mg/dL (8.5-10.1); CHLORIDE 114 mmol/L (98-107); CREATININE 1.09 mg/dL (0.55-1.02)
[2019-12-01] MEDS: SODIUM CHLORIDE 0.9% 1,000 ML IV SCH ×3 (02:58→11:37)
[2019-12-01 04:52] LABS: ANION GAP 17 mmol/L (5-15); CALCIUM 8.3 mg/dL (8.5-10.1); CHLORIDE 112 mmol/L (98-107)
[2019-12-01] MEDS: D5%-0.45NACL+KCL 20MEQ 1,000 ML IV SCH (04:56)
[2019-12-01 05:13] VITALS: BP 122/65
[2019-12-01 05:20] LABS: CREATININE 1.13 mg/dL (0.55-1.02)
[2019-12-01 07:40] LABS: ALANINE AMINOTRANSFERASE 181 U/L (12-78); ALBUMIN 2.6 g/dL (3.4-5.0); ANION GAP 16 mmol/L (5-15); CALCIUM 8.3 mg/dL (8.5-10.1); CHLORIDE 110 mmol/L (98-107); CREATININE 1.16 mg/dL (0.55-1.02)
[2019-12-01 07:42] LABS: ALKALINE PHOSPHATASE 288 U/L (45-117); BILIRUBIN,TOTAL 0.3 mg/dL (0.2-1.0); TOTAL PROTEIN 6.1 g/dL (6.4-8.2)
[2019-12-01 08:07] LABS: BASOPHILS % (AUTO) 0 % (0-1); EOSINOPHILS # (AUTO) 0.03 x10^3/uL (0-0.4); EOSINOPHILS % (AUTO) 1 % (1-7); LYMPHOCYTES % (AUTO) 22 % (22-44); MD NO; MEAN CORPUSCULAR HEMOGLOBIN 30.4 pg (27.0-34.8); MEAN CORPUSCULAR HGB CONC 30.9 g/dL (32.4-35.8); MEAN CORPUSCULAR VOLUME 98.3 fL (80-100); MEAN PLATELET VOLUME 6.7 fL (7.4-10.4); MONOCYTES # (AUTO) 0.54 x10^3/uL (0.2-0.8); MONOCYTES % (AUTO) 10 % (2-9); NEUTROPHILS # (AUTO) 3.61 x10^3/uL (1.8-6.8); NEUTROPHILS % (AUTO) 67 % (42-75); PLATELET COUNT 296 x10^3/uL (130-400); RED BLOOD COUNT 2.97 x10^6/uL (3.82-5.3); RED CELL DISTRIBUTION WIDTH 19.7 % (9.6-15.2)
[2019-12-01] MEDS: SODIUM CHLORIDE FLUSH 10ML SYR IVF SCH ×2 (09:00→21:16)
[2019-12-01 11:54] LABS: ANION GAP 12 mmol/L (5-15); CALCIUM 8.3 mg/dL (8.5-10.1); CHLORIDE 105 mmol/L (98-107)
[2019-12-01] MEDS ORDERED: INSULIN GLARGINE 100 UNITS/ML, PEN SQ-INSULIN ONE (12:30)
[2019-12-01] MEDS ORDERED: SODIUM CHLORIDE 0.9% 1,000 ML IV SCH (12:30)
[2019-12-01 14:27] VITALS: BP 112/76
[2019-12-01] MEDS: ENOXAPARIN 40 MG/0.4 ML SQ SCH (16:00)
[2019-12-01] MEDS: INSULIN LISPRO 100 UNITS/ML, PEN SQ-INSULIN SCH ×2 (16:35→21:15)
[2019-12-01 19:20] VITALS: BP 117/74
[2019-12-01] MEDS ORDERED: INSULIN GLARGINE 100 UNITS/ML, PEN SQ-INSULIN SCH (21:00)
[2019-12-01] MEDS: APIXABAN 5 MG TABLET PO SCH (21:14)
[2019-12-01] MEDS: INSULIN GLARGINE 100 UNITS/ML, PEN SQ-INSULIN SCH (21:15)
[2019-12-02 00:54] VITALS: BP 113/72
[2019-12-02 05:22] LABS: BASOPHILS # (AUTO) 0.01 x10^3/uL (0-0.1); BASOPHILS % (AUTO) 0 % (0-1); EOSINOPHILS # (AUTO) 0.03 x10^3/uL (0-0.4); EOSINOPHILS % (AUTO) 1 % (1-7); LYMPHOCYTES # (AUTO) 1.42 x10^3/uL (1-3.4); LYMPHOCYTES % (AUTO) 41 % (22-44); MD NO; MEAN CORPUSCULAR HEMOGLOBIN 31.1 pg (27.0-34.8); MEAN PLATELET VOLUME 7.4 fL (7.4-10.4); MONOCYTES # (AUTO) 0.39 x10^3/uL (0.2-0.8); MONOCYTES % (AUTO) 11 % (2-9); NEUTROPHILS # (AUTO) 1.58 x10^3/uL (1.8-6.8); NEUTROPHILS % (AUTO) 46 % (42-75); PLATELET COUNT 236 x10^3/uL (130-400); RED CELL DISTRIBUTION WIDTH 18.2 % (9.6-15.2)
[2019-12-02 05:32] LABS: ALBUMIN 2.6 g/dL (3.4-5.0); ANION GAP 10 mmol/L (5-15); CHLORIDE 107 mmol/L (98-107)
[2019-12-02 05:37] LABS: % IRON SATURATION 13 % (20-55); ALANINE AMINOTRANSFERASE 158 U/L (12-78); ALKALINE PHOSPHATASE 288 U/L (45-117); BILIRUBIN,TOTAL 0.3 mg/dL (0.2-1.0); CREATININE 1.08 mg/dL (0.55-1.02); IRON LEVEL 45 mcg/dL (50-170); TOTAL IRON BINDING CAPACITY 351 mcg/dL (250-450); TOTAL PROTEIN 5.8 g/dL (6.4-8.2)
[2019-12-02 07:11] VITALS: BP 139/93
[2019-12-02] MEDS: INSULIN LISPRO 100 UNITS/ML, PEN SQ-INSULIN SCH ×4 (07:43→21:16)
[2019-12-02] MEDS: INSULIN GLARGINE 100 UNITS/ML, PEN SQ-INSULIN SCH ×2 (09:29→21:16)
[2019-12-02] MEDS: SODIUM CHLORIDE FLUSH 10ML SYR IVF SCH ×2 (09:29→21:18)
[2019-12-02] MEDS: APIXABAN 5 MG TABLET PO SCH ×2 (09:29→21:15)
[2019-12-02 13:22] VITALS: BP 127/85
[2019-12-02 19:31] VITALS: BP 131/88
[2019-12-02] MEDS: FAMOTIDINE 20 MG TABLET PO SCH (21:15)
[2019-12-03 01:05] VITALS: BP 136/93
[2019-12-03] MEDS: INSULIN LISPRO 100 UNITS/ML, PEN SQ-INSULIN SCH ×2 (07:00→11:37)
[2019-12-03 07:10] VITALS: BP 123/84
[2019-12-03] MEDS: FAMOTIDINE 20 MG TABLET PO SCH (08:58)
[2019-12-03] MEDS: SODIUM CHLORIDE FLUSH 10ML SYR IVF SCH (08:58)
[2019-12-03] MEDS: APIXABAN 5 MG TABLET PO SCH (08:58)
[2019-12-03] MEDS: INSULIN GLARGINE 100 UNITS/ML, PEN SQ-INSULIN SCH (08:59)
[2019-12-03] MEDS ORDERED: APIX5TAB PO (09:42)
== END 2019-12-03 12:20 | disposition home or self-care (01) | DRG 637 ==
LOC: ED 12:58 → EDIP 14:20 → CCU 15:36 → 3N 12-01 14:15 → DCLOUNGE 12-03 12:15
PROVIDERS: ADMIT Internal Medicine; ATTEND Family Medicine
DX: E10.10 Type 1 diabetes mellitus with ketoacidosis without coma (principal); G93.41 Metabolic encephalopathy; E87.1 Hypo-osmolality and hyponatremia; I82.411 Acute embolism and thrombosis of right femoral vein; R65.10 Systemic inflammatory response syndrome (SIRS) of non-infectious origin without acute organ dysfunction; D75.89 Other specified diseases of blood and blood-forming organs; E10.21 Type 1 diabetes mellitus with diabetic nephropathy; E10.43 Type 1 diabetes mellitus with diabetic autonomic (poly)neuropathy; E55.9 Vitamin D deficiency, unspecified; E78.5 Hyperlipidemia, unspecified; E87.5 Hyperkalemia; E88.09 Other disorders of plasma-protein metabolism, not elsewhere classified; F12.20 Cannabis dependence, uncomplicated; F17.200 Nicotine dependence, unspecified, uncomplicated; I10 Essential (primary) hypertension; K31.84 Gastroparesis; Z79.01 Long term (current) use of anticoagulants; Z91.19 Patient's noncompliance with other medical treatment and regimen
CPT/HCPCS: 36415; 80048; 80053; 81001; 82010; 82040; 82607; 82803; 82947; 82962; 83540; 83550; 83735; 84100; 84443; 85025; 87081; 87086; 93970; 96361; 96374; 96375; 96376; 99291; G0378; J1650; J2405; J1815; J3480; J7030

== ENCOUNTER 2019-12-11 18:26 | Inpatient (IN) | payer MEDICAID ==
[~2019-12-11] VITALS: Ht 165.1 cm; Wt 70.9 kg
[~2019-12-11 18:26] MED LIST changes: +APIX5TAB PO
--- NOTE | 2019-12-11 18:53 | NUR ---
BIB [facility] FOR C/O N/V STARTED TODAY AT 0900. AT 1230 PT TOOK 30 UNITS INSULIN AT HOME. BS READ "HIGH" BY EMS. GIVEN 4 MG ZOFRAN. VS BIAS CUTTING MACHINE OPERATOR HR 120, BP 110/60, 97% RA. PT RESTING ON GURNEY. MONITORS APPLIED. ERP DR. LAO AT BEDSIDE.
--- NOTE | 2019-12-11 18:58 | NUR ---
REPORT GIVEN TO SALOME ALTMAN RN.
[2019-12-11] MEDS ORDERED: SODIUM CHLORIDE 0.9% 1,000ML IVBOLUS ONE ×3 (19:00→20:00)
[2019-12-11 19:05] LABS: ALBUMIN 3.9 g/dL (3.4-5.0); ANION GAP 34 mmol/L (5-15); CALCIUM 9.6 mg/dL (8.5-10.1); CHLORIDE 95 mmol/L (98-107); CREATININE 1.42 mg/dL (0.55-1.02); MEAN CORPUSCULAR HEMOGLOBIN 31.1 pg (27.0-34.8); MEAN CORPUSCULAR VOLUME 103.5 fL (80-100); MEAN PLATELET VOLUME 8.7 fL (7.4-10.4); PLATELET COUNT 645 x10^3/uL (130-400); RED BLOOD COUNT 4.22 x10^6/uL (3.82-5.3); RED CELL DISTRIBUTION WIDTH 19.7 % (9.6-15.2)
[2019-12-11 19:08] LABS: ACETONE, SERUM Large (80mg/dL) (Negative)
[2019-12-11 19:25] LABS: PH, VENOUS 6.991 pH (7.320-7.420)
[2019-12-11 19:31] LABS: BASOPHILS # (AUTO) 0.02 x10^3/uL (0-0.1); BASOPHILS % (AUTO) 0 % (0-1); EOSINOPHILS # (AUTO) 0.01 x10^3/uL (0-0.4); EOSINOPHILS % (AUTO) 0 % (1-7); LYMPHOCYTES # (AUTO) 1.95 x10^3/uL (1-3.4); LYMPHOCYTES % (AUTO) 23 % (22-44); MD MORPH REVIEW ONLY; MONOCYTES # (AUTO) 0.48 x10^3/uL (0.2-0.8); MONOCYTES % (AUTO) 6 % (2-9); NEUTROPHILS # (AUTO) 6.16 x10^3/uL (1.8-6.8); NEUTROPHILS % (AUTO) 72 % (42-75)
[2019-12-11 19:32] LABS: ANISOCYTOSIS 1+; POLYCHROMASIA 1+
--- NOTE | 2019-12-11 19:32 | NUR ---
multiple attempts to obtain PIV access. Successful insertion 18G into right upper arm by Donaldo ALMEIDA. Still attempting to get second line, will continue to reattempt after iv hydration
[2019-12-11 19:33] LABS: <PLATELET ESTIMATE> INCREASED; <PLT MORPHOLOGY> NORMAL PLT MORPH; OVALOCYTES 1+
[2019-12-11] MEDS ORDERED: ONDANSETRON 2MG/ML, 2ML IVPush PRN (20:00)
[2019-12-11] MEDS ORDERED: ACETAMINOPHEN 325 MG TABLET PO PRN (20:00)
[2019-12-11] MEDS ORDERED: METOCLOPRAMIDE 5 MG/ML, 2ML IVPush PRN (20:00)
[2019-12-11] MEDS: D5%-0.45NACL+KCL 20MEQ 1,000 ML IV SCH (20:00)
[2019-12-11] MEDS ORDERED: DOCUSATE 100 MG CAPSULE PO PRN (20:00)
[2019-12-11] MEDS ORDERED: LABETALOL 5MG/ML, 20ML IVPush PRN (20:00)
[2019-12-11] MEDS ORDERED: APIXABAN 5 MG TABLET ONE (20:04)
--- NOTE | 2019-12-11 20:15 | NUR ---
Insulin drip requested from pharmacy
[2019-12-11] MEDS: REGULAR INSULIN 100 UNITS in SODIUM CHLORIDE 0.9% 99 ML IV PRN (20:38)
--- NOTE | 2019-12-11 20:39 | NUR ---
iNSULIN DRIP VERIFIED WITH CANDICE ALMEIDA. DRIP STARTED AT 6.13 UNIT/HR.
--- NOTE | 2019-12-11 20:41 | NUR ---
PT LAYING ON RIGHT SIDE AND OCCLUDING PIV AND NSS BOLUS ADMINISTRATION. PT CONTINUOUSLY ENCOURAGED NOT TO LAY ON THIS SIDE AND KEEP RIGHT ARM STRAIGHT SO IV FLUID CAN RUN.
--- NOTE | 2019-12-11 20:43 | NUR ---
Per inpatient MD, pt to receive 2 more NSS liter boluses (for total of 4), and then switch to maintenance fluids. Initial 2 liters still running at this time
--- NOTE | 2019-12-11 20:45 | NUR ---
BGL reading High
[2019-12-11] MEDS ORDERED: APIXABAN 5 MG TABLET PO SCH (21:00)
--- NOTE | 2019-12-11 21:06 | NUR ---
report called to neil to assume care upon transfer to ccu
[2019-12-11 23:14] LABS: ANION GAP 31 mmol/L (5-15); CALCIUM 9.5 mg/dL (8.5-10.1); CHLORIDE 102 mmol/L (98-107); CREATININE 1.73 mg/dL (0.55-1.02)
[2019-12-12] MEDS: SODIUM CHLORIDE 0.9% 1,000 ML IV SCH ×2 (01:00→02:31)
[2019-12-12 01:41] LABS: ANION GAP 27 mmol/L (5-15); CALCIUM 9.6 mg/dL (8.5-10.1); CHLORIDE 111 mmol/L (98-107); CREATININE 1.74 mg/dL (0.55-1.02)
[2019-12-12 04:00] VITALS: BP 83/48
[2019-12-12] MEDS: D5%-0.45NACL+KCL 20MEQ 1,000 ML IV SCH ×3 (04:00→20:14)
[2019-12-12 06:47] LABS: MEAN CORPUSCULAR HEMOGLOBIN 30.2 pg (27.0-34.8); MEAN CORPUSCULAR HGB CONC 30.9 g/dL (32.4-35.8); MEAN CORPUSCULAR VOLUME 97.7 fL (80-100); MEAN PLATELET VOLUME 6.9 fL (7.4-10.4); PLATELET COUNT 449 x10^3/uL (130-400)
[2019-12-12 06:55] LABS: ANION GAP 19 mmol/L (5-15); CALCIUM 8.3 mg/dL (8.5-10.1); CHLORIDE 122 mmol/L (98-107); CREATININE 1.25 mg/dL (0.55-1.02)
[2019-12-12 07:13] LABS: BASOPHILS # (AUTO) 0.01 x10^3/uL (0-0.1); BASOPHILS % (AUTO) 0 % (0-1); EOSINOPHILS % (AUTO) 0 % (1-7); LYMPHOCYTES # (AUTO) 1.55 x10^3/uL (1-3.4); LYMPHOCYTES % (AUTO) 13 % (22-44); MD SCAN; MONOCYTES # (AUTO) 1.28 x10^3/uL (0.2-0.8); MONOCYTES % (AUTO) 10 % (2-9); NEUTROPHILS # (AUTO) 9.51 x10^3/uL (1.8-6.8); NEUTROPHILS % (AUTO) 77 % (42-75)
[2019-12-12] MEDS: REGULAR INSULIN 100 UNITS in SODIUM CHLORIDE 0.9% 99 ML IV PRN (07:48)
[2019-12-12] MEDS: NICOTINE 14MG/24 HR PATCH.TD24 TD SCH (08:45)
[2019-12-12] MEDS: APIXABAN 5 MG TABLET PO SCH ×2 (08:45→21:33)
[2019-12-12 11:37] LABS: ANION GAP 16 mmol/L (5-15); CALCIUM 8.5 mg/dL (8.5-10.1); CHLORIDE 110 mmol/L (98-107); CREATININE 1.39 mg/dL (0.55-1.02)
[2019-12-12 14:52] LABS: ANION GAP 17 mmol/L (5-15); CALCIUM 8.2 mg/dL (8.5-10.1); CHLORIDE 106 mmol/L (98-107); CREATININE 1.46 mg/dL (0.55-1.02)
[2019-12-12 18:49] LABS: ANION GAP 17 mmol/L (5-15); CALCIUM 8.2 mg/dL (8.5-10.1); CHLORIDE 103 mmol/L (98-107); CREATININE 1.43 mg/dL (0.55-1.02)
[2019-12-12 23:06] LABS: ANION GAP 14 mmol/L (5-15); CALCIUM 8.2 mg/dL (8.5-10.1); CHLORIDE 107 mmol/L (98-107); CREATININE 1.14 mg/dL (0.55-1.02)
[2019-12-13 02:15] LABS: ANION GAP 13 mmol/L (5-15); CALCIUM 7.9 mg/dL (8.5-10.1); CHLORIDE 110 mmol/L (98-107); CREATININE 1.16 mg/dL (0.55-1.02)
[2019-12-13 04:00] VITALS: BP 135/80
[2019-12-13] MEDS: D5%-0.45NACL+KCL 20MEQ 1,000 ML IV SCH (05:24)
[2019-12-13 06:36] LABS: ANION GAP 13 mmol/L (5-15); CALCIUM 7.9 mg/dL (8.5-10.1); CHLORIDE 113 mmol/L (98-107); CREATININE 1.05 mg/dL (0.55-1.02)
[2019-12-13] MEDS: NICOTINE 14MG/24 HR PATCH.TD24 TD SCH (08:11)
[2019-12-13] MEDS: APIXABAN 5 MG TABLET PO SCH ×2 (08:21→22:17)
[2019-12-13 11:01] LABS: ANION GAP 15 mmol/L (5-15); CALCIUM 8.4 mg/dL (8.5-10.1); CHLORIDE 108 mmol/L (98-107); CREATININE 1.08 mg/dL (0.55-1.02)
[2019-12-13 14:56] LABS: ANION GAP 14 mmol/L (5-15); CALCIUM 8.2 mg/dL (8.5-10.1); CHLORIDE 107 mmol/L (98-107); CREATININE 1.03 mg/dL (0.55-1.02)
[2019-12-13 18:33] LABS: ANION GAP 12 mmol/L (5-15); CALCIUM 8.5 mg/dL (8.5-10.1); CHLORIDE 106 mmol/L (98-107); CREATININE 0.91 mg/dL (0.55-1.02)
[2019-12-13 23:29] LABS: ANION GAP 9 mmol/L (5-15); CALCIUM 8.2 mg/dL (8.5-10.1); CHLORIDE 108 mmol/L (98-107); CREATININE 0.83 mg/dL (0.55-1.02)
[2019-12-14] MEDS: REGULAR INSULIN 100 UNITS in SODIUM CHLORIDE 0.9% 99 ML IV PRN (01:15)
[2019-12-14 03:24] LABS: MEAN CORPUSCULAR HEMOGLOBIN 31.1 pg (27.0-34.8); MEAN CORPUSCULAR VOLUME 97.3 fL (80-100); MEAN PLATELET VOLUME 6.4 fL (7.4-10.4); PLATELET COUNT 303 x10^3/uL (130-400); RED CELL DISTRIBUTION WIDTH 18.3 % (9.6-15.2)
[2019-12-14 03:27] LABS: ANION GAP 4 mmol/L (5-15); CALCIUM 8.1 mg/dL (8.5-10.1); CHLORIDE 114 mmol/L (98-107); CREATININE 0.66 mg/dL (0.55-1.02)
[2019-12-14 03:37] LABS: BASOPHILS # (AUTO) 0.02 x10^3/uL (0-0.1); BASOPHILS % (AUTO) 1 % (0-1); EOSINOPHILS # (AUTO) 0.03 x10^3/uL (0-0.4); EOSINOPHILS % (AUTO) 1 % (1-7); LYMPHOCYTES # (AUTO) 1.85 x10^3/uL (1-3.4); LYMPHOCYTES % (AUTO) 49 % (22-44); MD NO; MONOCYTES # (AUTO) 0.35 x10^3/uL (0.2-0.8); MONOCYTES % (AUTO) 9 % (2-9); NEUTROPHILS # (AUTO) 1.54 x10^3/uL (1.8-6.8); NEUTROPHILS % (AUTO) 41 % (42-75)
[2019-12-14 04:53] VITALS: BP 114/68
[2019-12-14 07:37] LABS: ANION GAP 8 mmol/L (5-15); CALCIUM 8.1 mg/dL (8.5-10.1); CHLORIDE 116 mmol/L (98-107); CREATININE 0.74 mg/dL (0.55-1.02)
[2019-12-14] MEDS: NICOTINE 14MG/24 HR PATCH.TD24 TD SCH (08:28)
[2019-12-14] MEDS ORDERED: DEXTROSE 4 GM TAB.CHEW PO PRN (08:30)
[2019-12-14] MEDS ORDERED: GLUCAGON 1 MG IM PRN (08:30)
[2019-12-14] MEDS ORDERED: DEXTROSE 50%, 50ML SYRINGE IVPush PRN (08:30)
[2019-12-14] MEDS: APIXABAN 5 MG TABLET PO SCH ×2 (08:48→21:18)
[2019-12-14] MEDS: SODIUM CHLORIDE FLUSH 10ML SYR IVF SCH ×2 (09:00→21:22)
[2019-12-14] MEDS: INSULIN GLARGINE 100 UNITS/ML, PEN SQ-INSULIN SCH (10:11)
[2019-12-14] MEDS: INSULIN LISPRO 100 UNITS/ML, PEN SQ-INSULIN SCH ×3 (11:18→21:20)
[2019-12-14 13:16] VITALS: BP 139/96
[2019-12-14] MEDS ORDERED: ARTIFICIAL TEARS 15 DROP/ML BOTTLE EACHEYE PRN (17:30)
[2019-12-14 18:48] VITALS: BP 154/110
[2019-12-14] MEDS ORDERED: INSULIN GLARGINE 100 UNITS/ML, PEN SQ-INSULIN SCH (21:00)
[2019-12-15 00:34] VITALS: BP 139/96
[2019-12-15 06:14] LABS: CHLORIDE 111 mmol/L (98-107)
[2019-12-15 06:26] LABS: ANION GAP 11 mmol/L (5-15); CALCIUM 8.6 mg/dL (8.5-10.1); CREATININE 0.69 mg/dL (0.55-1.02)
[2019-12-15] MEDS: INSULIN LISPRO 100 UNITS/ML, PEN SQ-INSULIN SCH ×2 (07:00→11:58)
[2019-12-15 07:54] VITALS: BP 134/97
[2019-12-15] MEDS: NICOTINE 14MG/24 HR PATCH.TD24 TD SCH (09:00)
[2019-12-15] MEDS: APIXABAN 5 MG TABLET PO SCH (09:14)
[2019-12-15] MEDS: INSULIN GLARGINE 100 UNITS/ML, PEN SQ-INSULIN SCH (09:15)
[2019-12-15] MEDS: SODIUM CHLORIDE FLUSH 10ML SYR IVF SCH (09:15)
[2019-12-15 13:45] VITALS: BP 130/92
== END 2019-12-15 16:18 | disposition home or self-care (01) | DRG 637 ==
LOC: ED 19:16 → EDIP 21:34 → CCU 21:38 → 3N 12-14 12:48
PROVIDERS: ADMIT Family Medicine; ATTEND Hospitalist
DX: E10.10 Type 1 diabetes mellitus with ketoacidosis without coma (principal); N17.0 Acute kidney failure with tubular necrosis; I82.401 Acute embolism and thrombosis of unspecified deep veins of right lower extremity; D75.89 Other specified diseases of blood and blood-forming organs; E10.43 Type 1 diabetes mellitus with diabetic autonomic (poly)neuropathy; E55.9 Vitamin D deficiency, unspecified; D50.9 Iron deficiency anemia, unspecified; F12.90 Cannabis use, unspecified, uncomplicated; E78.5 Hyperlipidemia, unspecified; I10 Essential (primary) hypertension; K31.84 Gastroparesis; Z79.4 Long term (current) use of insulin; Z86.718 Personal history of other venous thrombosis and embolism; Z91.19 Patient's noncompliance with other medical treatment and regimen; Z91.040 Latex allergy status; E86.0 Dehydration; Z72.0 Tobacco use
CPT/HCPCS: 36415; 80048; 82010; 82040; 82803; 82962; 83690; 83735; 84100; 85025; 87081; G0378; J1815; J2405; J3480; J7030

== ENCOUNTER 2019-12-21 11:56 | Inpatient (IN) | payer MEDICAID ==
[~2019-12-21] VITALS: Ht 165.1 cm; Wt 67.8 kg
[2019-12-21] MEDS ORDERED: ONDANSETRON 2MG/ML, 2ML IVPush ONE (12:30)
[2019-12-21] MEDS ORDERED: ONDANSETRON 2MG/ML, 2ML ONE (12:46)
--- NOTE | 2019-12-21 12:48 | NUR ---
Pt medicated for nausea per MAR and provided blanket per request. Pt denies other needs.
[2019-12-21 12:50] LABS: PH, VENOUS 7.229 pH (7.320-7.420)
[2019-12-21 12:56] LABS: MEAN PLATELET VOLUME 8.8 fL (7.4-10.4); PLATELET COUNT 437 x10^3/uL (130-400); RED BLOOD COUNT 4.24 x10^6/uL (3.82-5.3); RED CELL DISTRIBUTION WIDTH 19.1 % (9.6-15.2)
[2019-12-21 12:58] LABS: MEAN CORPUSCULAR HGB CONC 29.2 g/dL (32.4-35.8)
[2019-12-21 13:14] LABS: BASOPHILS # (AUTO) 0.01 x10^3/uL (0-0.1); BASOPHILS % (AUTO) 0 % (0-1); EOSINOPHILS # (AUTO) 0.01 x10^3/uL (0-0.4); EOSINOPHILS % (AUTO) 0 % (1-7); LYMPHOCYTES # (AUTO) 0.71 x10^3/uL (1-3.4); LYMPHOCYTES % (AUTO) 9 % (22-44); MD SCAN; MONOCYTES # (AUTO) 0.44 x10^3/uL (0.2-0.8); MONOCYTES % (AUTO) 6 % (2-9); NEUTROPHILS # (AUTO) 6.46 x10^3/uL (1.8-6.8); NEUTROPHILS % (AUTO) 85 % (42-75)
[2019-12-21 13:16] LABS: ALANINE AMINOTRANSFERASE 377 U/L (12-78); ALBUMIN 4.4 g/dL (3.4-5.0); ALKALINE PHOSPHATASE 687 U/L (45-117); ANION GAP 22 mmol/L (5-15); BILIRUBIN,TOTAL 0.7 mg/dL (0.2-1.0); CALCIUM 9.9 mg/dL (8.5-10.1); CHLORIDE 83 mmol/L (98-107); CREATININE 2.23 mg/dL (0.55-1.02); TOTAL PROTEIN 9.6 g/dL (6.4-8.2)
[2019-12-21] MEDS ORDERED: REGULAR INSULIN 100 UNITS in SODIUM CHLORIDE 0.9% 99 ML IV PRN (13:42)
[2019-12-21] MEDS ORDERED: INSULIN SINGLE DOSE, ER ONE (13:47)
--- NOTE | 2019-12-21 13:50 | NUR ---
Pt medicated for hyperglycemia per MAR. Pt reports nausea improved after medications. Pt resting in bed, able to position self for comfort, denies other needs.
[2019-12-21 13:57] LABS: ACETONE, SERUM Large (80mg/dL) (Negative)
[2019-12-21] MEDS ORDERED: ONDANSETRON 2MG/ML, 2ML IVPush PRN (14:00)
[2019-12-21] MEDS ORDERED: ACETAMINOPHEN 325 MG TABLET PO PRN (14:00)
[2019-12-21] MEDS ORDERED: MELATONIN 5 MG TABLET PO PRN (14:00)
[2019-12-21] MEDS ORDERED: HEPARIN 5,000 UNITS/ML, 1ML SQ SCH (14:00)
[2019-12-21] MEDS ORDERED: SODIUM CHLORIDE 0.9% 1,000ML IVBOLUS ONE ×2 (14:00)
[2019-12-21] MEDS ORDERED: INSULIN REGULAR 100 UNITS/ML, 3ML VIAL IVPush ONE (14:00)
--- NOTE | 2019-12-21 14:02 | NUR ---
Pt ambulatory to bathroom with steady gait.
--- NOTE | 2019-12-21 14:12 | NUR ---
Pt back from bathroom. Pt to xray with [employer].
[2019-12-21 14:30] LABS: ANION GAP 19 mmol/L (5-15); CALCIUM 9.1 mg/dL (8.5-10.1); CHLORIDE 92 mmol/L (98-107); CREATININE 1.86 mg/dL (0.55-1.02)
[2019-12-21 14:35] LABS: MICROSCOPIC NOT IND
--- NOTE | 2019-12-21 15:01 | NUR ---
BREAK RN. PT RESTING IN BED, NO DISTRESS, STATES "FEELING BETTER." INSULIN GTT REQUESTED FROM PHARMACY. US AT BEDSIDE. PT REMAINS ON MONITORS.
--- NOTE | 2019-12-21 15:37 | NUR ---
TASK RN: THIRD AND FOURTH LITER NS HUNG. INSULIN GTT STARTED AND CONFIRMED W ELLE CLAYTON. PT REPORTS CHAVIRA AND IS REQUESTING TYLENOL. WILL MAKE HOSPITALIST AWARE. AWAITING ADMIT
[2019-12-21] MEDS ORDERED: ACETAMINOPHEN 325 MG TABLET ONE (16:14)
--- NOTE | 2019-12-21 16:15 | NUR ---
MEDICATED PER EMAR FOR CHAVIRA, 11/04. LAB ELI REPEAT BG. AWAITING RESULTS TO TITRATE INSULIN
--- NOTE | 2019-12-21 16:42 | NUR ---
INSULIN TITRATED PER PROTOCOL. ELLE ACEVES VERIFIED CHANGE
--- NOTE | 2019-12-21 17:00 | NUR ---
REPORT TO ELLE TORRES. PT PREPARED FOR TRANSPORT TO CCU
[2019-12-21] MEDS: SODIUM CHLORIDE 0.9% 1,000 ML IV SCH ×3 (17:30→23:42)
[2019-12-21 18:20] LABS: ANION GAP 20 mmol/L (5-15); CALCIUM 8.9 mg/dL (8.5-10.1); CHLORIDE 106 mmol/L (98-107); CREATININE 1.88 mg/dL (0.55-1.02)
[2019-12-21] MEDS: APIXABAN 5 MG TABLET PO SCH (21:52)
[2019-12-21] MEDS: D5%-0.45NACL+KCL 20MEQ 1,000 ML IV SCH (21:52)
[2019-12-21 23:21] LABS: CALCIUM 7.9 mg/dL (8.5-10.1)
[2019-12-21 23:40] LABS: ANION GAP 14 mmol/L (5-15); CHLORIDE 104 mmol/L (98-107); CREATININE 1.26 mg/dL (0.55-1.02)
[2019-12-22 04:00] VITALS: BP 104/64
[2019-12-22 04:02] LABS: ALBUMIN 2.7 g/dL (3.4-5.0); ANION GAP 6 mmol/L (5-15); CALCIUM 7.9 mg/dL (8.5-10.1); CHLORIDE 113 mmol/L (98-107)
[2019-12-22 04:05] LABS: ALANINE AMINOTRANSFERASE 215 U/L (12-78); ALKALINE PHOSPHATASE 379 U/L (45-117); BILIRUBIN,TOTAL 0.2 mg/dL (0.2-1.0); CREATININE 0.82 mg/dL (0.55-1.02); TOTAL PROTEIN 6.1 g/dL (6.4-8.2)
[2019-12-22 04:19] LABS: BILIRUBIN, DIRECT < 0.1 mg/dL (0.1-0.2); BILIRUBIN,INDIRECT 0.1 mg/dL (0.0-2.0)
[2019-12-22] MEDS ORDERED: POTASSIUM CHLORIDE 20 MEQ TAB.ER.PRT PO ONE (04:30)
[2019-12-22] MEDS: D5%-0.45NACL+KCL 20MEQ 1,000 ML IV SCH (06:12)
[2019-12-22] MEDS ORDERED: SODIUM CHLORIDE 0.9% 1,000 ML IV SCH (07:00)
[2019-12-22] MEDS ORDERED: INSULIN LISPRO 100 UNITS/ML, PEN SQ-INSULIN SCH (07:00)
[2019-12-22] MEDS ORDERED: PANTOPRAZOLE 40 MG IV IVPush SCH (07:30)
[2019-12-22] MEDS: POTASSIUM CHLORIDE 20 MEQ TAB.ER.PRT PO SCH ×2 (08:54→17:00)
[2019-12-22] MEDS: APIXABAN 5 MG TABLET PO SCH ×2 (08:54→21:09)
[2019-12-22] MEDS: INSULIN GLARGINE 100 UNITS/ML, PEN SQ-INSULIN SCH ×2 (08:55→21:09)
[2019-12-22] MEDS ORDERED: INSULIN LISPRO 100 UNITS/ML, PEN SQ-INSULIN ONE (12:30)
[2019-12-22 14:02] VITALS: BP 109/76
[2019-12-22] MEDS: INSULIN LISPRO 100 UNITS/ML, PEN SQ-INSULIN SCH ×2 (16:59→21:10)
[2019-12-22 21:14] VITALS: BP 118/79
[2019-12-23 00:25] VITALS: BP 117/80
[2019-12-23] MEDS: INSULIN LISPRO 100 UNITS/ML, PEN SQ-INSULIN SCH ×5 (03:54→16:45)
[2019-12-23 05:44] LABS: ANION GAP 6 mmol/L (5-15); CALCIUM 8.2 mg/dL (8.5-10.1); CHLORIDE 107 mmol/L (98-107); CREATININE 0.75 mg/dL (0.55-1.02)
[2019-12-23 07:06] VITALS: BP 114/78
[2019-12-23] MEDS: APIXABAN 5 MG TABLET PO SCH (08:15)
[2019-12-23] MEDS: INSULIN GLARGINE 100 UNITS/ML, PEN SQ-INSULIN SCH (08:15)
[2019-12-23 13:09] VITALS: BP 119/81
== END 2019-12-23 17:46 | disposition home or self-care (01) | DRG 637 ==
LOC: ED 14:00 → CCU 17:34 → 3N 12-22 09:32
PROVIDERS: ADMIT Hospitalist; ATTEND Family Medicine
DX: E10.10 Type 1 diabetes mellitus with ketoacidosis without coma (principal); N17.0 Acute kidney failure with tubular necrosis; E10.43 Type 1 diabetes mellitus with diabetic autonomic (poly)neuropathy; E55.9 Vitamin D deficiency, unspecified; E78.5 Hyperlipidemia, unspecified; Z88.8 Allergy status to other drugs, medicaments and biological substances; Z91.040 Latex allergy status; E86.0 Dehydration; F12.90 Cannabis use, unspecified, uncomplicated; F17.210 Nicotine dependence, cigarettes, uncomplicated; I10 Essential (primary) hypertension; D75.89 Other specified diseases of blood and blood-forming organs; D50.9 Iron deficiency anemia, unspecified; K31.84 Gastroparesis; Z79.01 Long term (current) use of anticoagulants; Z83.3 Family history of diabetes mellitus; Z91.19 Patient's noncompliance with other medical treatment and regimen; Z86.718 Personal history of other venous thrombosis and embolism
CPT/HCPCS: 36415; 71046; 76705; 80048; 80053; 80076; 81003; 82010; 82803; 82947; 82962; 83690; 83735; 84100; 84703; 85025; 87040; 87081; 93005; 96361; 96365; 96366; 96375; 99291; G0378; J2405; J1815; J3480; J7030

== ENCOUNTER 2019-12-29 19:10 | Inpatient (IN) | payer MEDICAID ==
[~2019-12-29] VITALS: Ht 152.4 cm; Wt 79.2 kg
[2019-12-29] MEDS ORDERED: SODIUM CHLORIDE 0.9% 1,000ML IVBOLUS ONE ×3 (19:30→22:30)
--- NOTE | 2019-12-29 19:33 | NUR ---
PT BIBA. PER EMS REPORT PT IS AN UNCONTROLLED DIABETIC WHO HAS BEEN OFF INSULIN FOR 24-48 HOURS AND ALSO HAS BEEN "BINGING" ON CANDY AND SWEETS. EMS REPORTS PT REFUSED IV OR ANY INTERVENTIONS FROM THEM. PT CURRENTLY AWAKE AND MOANING. PT IS ON TRAFFIC LINE PAINTER AND CONTINUOUS PULSE OX. ALL SIDE RAILS UP, BED IN LOWEST POSITION, AND CALL LIGHT WITHIN REACH.
--- NOTE | 2019-12-29 19:35 | NUR ---
PT IS REFUSING IV.
--- NOTE | 2019-12-29 19:44 | NUR ---
PT IS UNCOOPERATIVE AND IS NOT WILLING TO ANSWER QUESTIONS PERTAINING TO ASSESSMENT. DR. ATKINS WAS AT BEDSIDE AND IS AWARE THAT SHE IS REFUSING AN IV, LIKE SHE DID WITH [facility].
--- NOTE | 2019-12-29 19:46 | NUR ---
THIS RN CALLED PT'S FATHER, MIGUEL, WHO STATED THAT THE PT IS NOT ALLOWED BACK AT HIS HOME.
--- NOTE | 2019-12-29 21:10 | NUR ---
US GUIED LARGE BORE IV ACCESS GAINED AND LABS DRAWN. LABS WALKED TO THE LAB. WAITING ON RESULTS.
--- NOTE | 2019-12-29 21:29 | NUR ---
SARAH FROM LAB CALLED WITH CRITICAL LABS, PH 6.742, HCO3 2.8, TCO2 3.4. LAB RESULTS READ BACK TO SARAH. DR. ATKINS NOTIFIED.
[2019-12-29 21:32] LABS: PH, VENOUS 6.742 pH (7.320-7.420)
[2019-12-29 21:34] LABS: ALANINE AMINOTRANSFERASE 167 U/L (12-78); ALBUMIN 3.8 g/dL (3.4-5.0); ANION GAP 35 mmol/L (5-15); CALCIUM 9.1 mg/dL (8.5-10.1); CHLORIDE 96 mmol/L (98-107)
[2019-12-29 21:36] LABS: ALKALINE PHOSPHATASE 440 U/L (45-117); BILIRUBIN,TOTAL 0.5 mg/dL (0.2-1.0); TOTAL PROTEIN 8.4 g/dL (6.4-8.2)
[2019-12-29] MEDS ORDERED: REGULAR INSULIN 100 UNITS in SODIUM CHLORIDE 0.9% 99 ML IV PRN (21:50)
--- NOTE | 2019-12-29 21:59 | NUR ---
REPORT GIVEN TO ELLE HURLEY.
[2019-12-29 22:13] LABS: MEAN CORPUSCULAR HEMOGLOBIN 31.3 pg (27.0-34.8); MEAN PLATELET VOLUME 9.2 fL (7.4-10.4); PLATELET COUNT 663 x10^3/uL (130-400); RED BLOOD COUNT 3.85 x10^6/uL (3.82-5.3); RED CELL DISTRIBUTION WIDTH 19.1 % (9.6-15.2)
[2019-12-29 22:14] LABS: MD YES; MEAN CORPUSCULAR HGB CONC 28.7 g/dL (32.4-35.8)
[2019-12-29 22:19] LABS: BAND#(MANUAL) 1.25 x10^3/uL; BANDS%(MANUAL) 7 % (0-7); BASOS#(MANUAL) 0.18 x10^3/uL (0-0.1); BASOS% (MANUAL) 1 % (0-1); LYMPH#(MANUAL) 4.98 x10^3/uL (1-3.4); LYMPHS% (MANUAL) 28 % (22-44); MONOS#(MANUAL) 1.78 x10^3/uL (0.3-2.7); MONOS% (MANUAL) 10 % (2-9); MYELOCYTES# (MANUAL) 0.18 x10^3/uL (0-0); MYELOCYTES% (MANUAL) 1 % (0-0); SEG#(MANUAL) 9.43 x10^3/uL (1.8-6.8); SEGS% (MANUAL) 53 % (42-75)
[2019-12-29 22:20] LABS: ANISOCYTOSIS 1+
[2019-12-29 22:25] LABS: <PLATELET ESTIMATE> INCREASED; LARGE PLATELETS 1+; POLYCHROMASIA 1+
[2019-12-29 22:26] LABS: OVALOCYTES 1+
[2019-12-29 22:29] LABS: ACETONE, SERUM Large (80mg/dL) (Negative)
[2019-12-29] MEDS ORDERED: ACETAMINOPHEN 325 MG TABLET PO PRN (22:30)
[2019-12-29] MEDS ORDERED: DOCUSATE 100 MG CAPSULE PO PRN (22:30)
--- NOTE | 2019-12-29 22:51 | NUR ---
PT INCONTINENT OF URINE, PT CLEANED AND NEW SHEETS APPLIED. INSULIN STARTED. REPORT CALLED TO ELLE NOLASCO IN CCU
[2019-12-29] MEDS: SODIUM CHLORIDE 0.9% 1,000 ML IV SCH (23:38)
[2019-12-29] MEDS: HEPARIN 5,000 UNITS/ML, 1ML SQ SCH (23:40)
[2019-12-29 23:57] LABS: ANION GAP 32 mmol/L (5-15); CALCIUM 8.7 mg/dL (8.5-10.1); CHLORIDE 103 mmol/L (98-107); CREATININE 1.65 mg/dL (0.55-1.02)
[2019-12-30 04:04] LABS: MEAN CORPUSCULAR HEMOGLOBIN 30.7 pg (27.0-34.8); MEAN PLATELET VOLUME 8.6 fL (7.4-10.4); PLATELET COUNT 593 x10^3/uL (130-400); RED BLOOD COUNT 3.54 x10^6/uL (3.82-5.3); RED CELL DISTRIBUTION WIDTH 17.2 % (9.6-15.2)
[2019-12-30 04:05] LABS: MEAN CORPUSCULAR HGB CONC 29.3 g/dL (32.4-35.8)
[2019-12-30 04:06] LABS: MD YES
[2019-12-30 04:09] LABS: BAND#(MANUAL) 0.73 x10^3/uL; BANDS%(MANUAL) 5 % (0-7); BASOS#(MANUAL) 0.29 x10^3/uL (0-0.1); BASOS% (MANUAL) 2 % (0-1); LYMPHS% (MANUAL) 13 % (22-44); METAMYELOCYTES# (MANUAL) 0.15 x10^3/uL (0-0); METAMYELOCYTES% (MANUAL) 1 % (0-1); MONOS#(MANUAL) 1.46 x10^3/uL (0.3-2.7); MONOS% (MANUAL) 10 % (2-9); SEG#(MANUAL) 10.07 x10^3/uL (1.8-6.8); SEGS% (MANUAL) 69 % (42-75)
[2019-12-30 04:13] LABS: ANISOCYTOSIS 1+; OVALOCYTES 1+; POLYCHROMASIA 1+
[2019-12-30 04:14] LABS: <PLATELET ESTIMATE> INCREASED; LARGE PLATELETS 1+
[2019-12-30 05:02] LABS: ANION GAP 24 mmol/L (5-15); CALCIUM 8.1 mg/dL (8.5-10.1); CHLORIDE 118 mmol/L (98-107); CREATININE 1.52 mg/dL (0.55-1.02)
[2019-12-30] MEDS: HEPARIN 5,000 UNITS/ML, 1ML SQ SCH ×3 (06:08→22:30)
[2019-12-30] MEDS: D5%-0.45NACL+KCL 20MEQ 1,000 ML IV SCH ×2 (06:25→10:24)
[2019-12-30] MEDS: REGULAR INSULIN 100 UNITS in SODIUM CHLORIDE 0.9% 99 ML IV PRN ×2 (08:56→09:31)
[2019-12-30] MEDS: SODIUM CHLORIDE 0.9% 1,000 ML IV SCH ×3 (08:56→23:00)
[2019-12-30 09:18] LABS: ANION GAP 18 mmol/L (5-15); CALCIUM 8.3 mg/dL (8.5-10.1); CREATININE 1.31 mg/dL (0.55-1.02)
[2019-12-30 09:31] LABS: CHLORIDE 128 mmol/L (98-107)
[2019-12-30 13:56] LABS: ANION GAP 13 mmol/L (5-15); CHLORIDE 121 mmol/L (98-107); CREATININE 1.22 mg/dL (0.55-1.02)
[2019-12-30 15:51] LABS: ANION GAP 12 mmol/L (5-15); CALCIUM 7.6 mg/dL (8.5-10.1); CHLORIDE 116 mmol/L (98-107); CREATININE 1.04 mg/dL (0.55-1.02)
[2019-12-30 19:41] LABS: ANION GAP 15 mmol/L (5-15); CALCIUM 7.6 mg/dL (8.5-10.1); CHLORIDE 111 mmol/L (98-107); CREATININE 1.24 mg/dL (0.55-1.02)
[2019-12-30 23:39] LABS: ANION GAP 12 mmol/L (5-15); CALCIUM 7.8 mg/dL (8.5-10.1); CHLORIDE 109 mmol/L (98-107)
[2019-12-31 02:45] LABS: ANION GAP 12 mmol/L (5-15); CALCIUM 7.4 mg/dL (8.5-10.1); CHLORIDE 111 mmol/L (98-107); CREATININE 0.89 mg/dL (0.55-1.02)
[2019-12-31] MEDS: SODIUM CHLORIDE 0.9% 1,000 ML IV SCH ×4 (04:00→19:00)
[2019-12-31 04:48] LABS: MICROSCOPIC INDICATED
[2019-12-31] MEDS: HEPARIN 5,000 UNITS/ML, 1ML SQ SCH ×3 (06:19→22:30)
[2019-12-31] MEDS: D5%-0.45NACL+KCL 20MEQ 1,000 ML IV SCH ×3 (06:43→17:40)
[2019-12-31 07:39] LABS: ANION GAP 12 mmol/L (5-15); CALCIUM 7.3 mg/dL (8.5-10.1); CHLORIDE 115 mmol/L (98-107); CREATININE 0.98 mg/dL (0.55-1.02)
[2019-12-31 10:50] LABS: ANION GAP 11 mmol/L (5-15); CALCIUM 7.7 mg/dL (8.5-10.1); CHLORIDE 112 mmol/L (98-107); CREATININE 1.04 mg/dL (0.55-1.02)
[2019-12-31 15:34] LABS: ANION GAP 12 mmol/L (5-15); CHLORIDE 108 mmol/L (98-107); CREATININE 1.14 mg/dL (0.55-1.02)
[2019-12-31] MEDS: REGULAR INSULIN 100 UNITS in SODIUM CHLORIDE 0.9% 99 ML IV PRN (17:40)
[2019-12-31 18:48] LABS: ANION GAP 8 mmol/L (5-15); CALCIUM 8.3 mg/dL (8.5-10.1); CHLORIDE 110 mmol/L (98-107)
[2019-12-31 18:49] LABS: CREATININE 1.02 mg/dL (0.55-1.02)
[2019-12-31 23:15] LABS: ANION GAP 8 mmol/L (5-15); CALCIUM 7.9 mg/dL (8.5-10.1); CHLORIDE 116 mmol/L (98-107); CREATININE 0.71 mg/dL (0.55-1.02)
[2020-01-01] MEDS ORDERED: POTASSIUM CHLORIDE 20 MEQ TAB.ER.PRT PO ONE ×3 (00:30→06:30)
[2020-01-01 02:42] LABS: CHLORIDE 118 mmol/L (98-107)
[2020-01-01 02:43] LABS: ANION GAP 8 mmol/L (5-15); CALCIUM 7.7 mg/dL (8.5-10.1); CREATININE 0.74 mg/dL (0.55-1.02)
[2020-01-01] MEDS: SODIUM CHLORIDE 0.9% 1,000 ML IV SCH ×2 (04:37)
[2020-01-01] MEDS: D5%-0.45NACL+KCL 20MEQ 1,000 ML IV SCH (04:38)
[2020-01-01] MEDS: HEPARIN 5,000 UNITS/ML, 1ML SQ SCH (05:55)
[2020-01-01] MEDS ORDERED: INSULIN GLARGINE 100 UNITS/ML, PEN ONE (06:28)
[2020-01-01] MEDS: INSULIN LISPRO 100 UNITS/ML, PEN SQ-INSULIN SCH ×4 (06:33→20:40)
[2020-01-01] MEDS: INSULIN GLARGINE 100 UNITS/ML, PEN SQ-INSULIN SCH ×2 (06:36→20:41)
[2020-01-01 06:46] LABS: ANION GAP 9 mmol/L (5-15); CALCIUM 7.9 mg/dL (8.5-10.1); CHLORIDE 123 mmol/L (98-107); CREATININE 0.79 mg/dL (0.55-1.02)
[2020-01-01] MEDS ORDERED: APIXABAN 5 MG TABLET PO SCH (09:00)
[2020-01-01 14:20] VITALS: BP 136/91
[2020-01-01 18:51] VITALS: BP 135/88
[2020-01-01] MEDS: APIXABAN 5 MG TABLET PO SCH (20:36)
[2020-01-01] MEDS ORDERED: SODIUM CHLORIDE 0.9% 1,000 ML IV SCH (22:25)
[2020-01-02 00:18] VITALS: BP 139/93
[2020-01-02 05:31] LABS: CALCIUM 8.3 mg/dL (8.5-10.1); CHLORIDE 117 mmol/L (98-107)
[2020-01-02 05:33] LABS: ANION GAP 7 mmol/L (5-15); CREATININE 0.65 mg/dL (0.55-1.02)
[2020-01-02 06:59] VITALS: BP 117/75
[2020-01-02] MEDS: APIXABAN 5 MG TABLET PO SCH ×2 (07:51→20:37)
[2020-01-02] MEDS: INSULIN LISPRO 100 UNITS/ML, PEN SQ-INSULIN SCH ×5 (07:51→20:37)
[2020-01-02] MEDS: AMOXICILLIN 500 MG CAPSULE PO SCH ×2 (07:52→20:36)
[2020-01-02] MEDS: INSULIN GLARGINE 100 UNITS/ML, PEN SQ-INSULIN SCH ×2 (07:52→20:37)
[2020-01-02] MEDS ORDERED: FLU VACC QS2020-21(6MOS UP)/PF 60MCG/0.5 ML SYR IM-VACC ONE (09:00)
[2020-01-02 12:49] VITALS: BP 133/89
[2020-01-02 19:35] VITALS: BP 134/85
[2020-01-03 00:02] VITALS: BP 131/95
[2020-01-03 05:18] LABS: ALBUMIN 2.5 g/dL (3.4-5.0); ANION GAP 4 mmol/L (5-15); CALCIUM 8.8 mg/dL (8.5-10.1); CHLORIDE 116 mmol/L (98-107)
[2020-01-03 05:27] LABS: ALANINE AMINOTRANSFERASE 117 U/L (12-78); ALKALINE PHOSPHATASE 263 U/L (45-117); BILIRUBIN,TOTAL 0.2 mg/dL (0.2-1.0); CREATININE 0.74 mg/dL (0.55-1.02); TOTAL PROTEIN 5.9 g/dL (6.4-8.2)
[2020-01-03 07:07] VITALS: BP 116/74
[2020-01-03] MEDS: INSULIN LISPRO 100 UNITS/ML, PEN SQ-INSULIN SCH ×6 (08:00→16:00)
[2020-01-03] MEDS: APIXABAN 5 MG TABLET PO SCH (08:58)
[2020-01-03] MEDS: AMOXICILLIN 500 MG CAPSULE PO SCH (08:58)
[2020-01-03] MEDS ORDERED: CALCIUM CARBONATE 500 MG TAB.CHEW PO PRN (09:00)
[2020-01-03] MEDS ORDERED: PANTOPRAZOLE 40MG TABLET PO SCH (09:00)
[2020-01-03] MEDS ORDERED: PANT40TA6 PO (16:28)
[2020-01-03] MEDS ORDERED: AMOX-291 PO (16:58)
[2020-01-03 18:01] VITALS: BP 136/94
[2020-01-08] MEDS ORDERED: APIXABAN 5 MG TABLET PO SCH (09:00)
== END 2020-01-03 18:10 | disposition home or self-care (01) | DRG 637 ==
LOC: ED 22:42 → EDIP 22:45 → CCU 23:04 → 3N 01-01 13:44
PROVIDERS: ADMIT Family Medicine; ATTEND Hospitalist
DX: E10.10 Type 1 diabetes mellitus with ketoacidosis without coma (principal); N17.0 Acute kidney failure with tubular necrosis; E87.0 Hyperosmolality and hypernatremia; I82.401 Acute embolism and thrombosis of unspecified deep veins of right lower extremity; N39.0 Urinary tract infection, site not specified; E87.5 Hyperkalemia; R74.01 Elevation of levels of liver transaminase levels; K81.1 Chronic cholecystitis; K21.9 Gastro-esophageal reflux disease without esophagitis; D53.9 Nutritional anemia, unspecified; E55.9 Vitamin D deficiency, unspecified; E78.1 Pure hyperglyceridemia; D72.829 Elevated white blood cell count, unspecified; Z72.89 Other problems related to lifestyle; Z91.040 Latex allergy status; Z82.5 Family history of asthma and other chronic lower respiratory diseases; Z80.9 Family history of malignant neoplasm, unspecified; Z83.3 Family history of diabetes mellitus; Z91.19 Patient's noncompliance with other medical treatment and regimen
CPT/HCPCS: 36415; 71045; 78226; 80048; 80053; 81001; 82010; 82803; 82947; 82962; 83735; 84100; 85025; 87040; 87081; 87086; 87147; 90686; 93005; 96361; 96374; 99291; G0378; J1644; J1815; A9537; J3480; J7030

== ENCOUNTER 2020-01-15 05:01 | Inpatient (IN) | payer MEDICAID ==
[~2020-01-15] VITALS: Ht 162.6 cm; Wt 66.2 kg
[~2020-01-15 05:01] MED LIST changes: +AMOX-291 PO; +PANT40TA6 PO
[2020-01-15] MEDS ORDERED: SODIUM CHLORIDE 0.9% 1,000ML IVBOLUS ONE ×5 (05:30→10:30)
[2020-01-15] MEDS ORDERED: LIDOCAINE-MPF 2%, 2ML IM ONE (05:30)
[2020-01-15 05:43] LABS: ALANINE AMINOTRANSFERASE 133 U/L (12-78); ALBUMIN 4.1 g/dL (3.4-5.0); ANION GAP 32 mmol/L (5-15); CALCIUM 9.2 mg/dL (8.5-10.1); CHLORIDE 91 mmol/L (98-107); CREATININE 1.85 mg/dL (0.55-1.02)
[2020-01-15 05:45] LABS: ALKALINE PHOSPHATASE 479 U/L (45-117); BILIRUBIN,TOTAL 0.5 mg/dL (0.2-1.0); TOTAL PROTEIN 9.3 g/dL (6.4-8.2)
[2020-01-15 06:03] LABS: PH, VENOUS 6.658 pH (7.320-7.420)
[2020-01-15 06:05] LABS: ACETONE, SERUM Large (80mg/dL) (Negative)
--- NOTE | 2020-01-15 06:24 | NUR ---
PT BROUGHT IN BY JACKIE WHO WAS CALLED BY PT FRIEND FOR PT ALOC AND JACQUELYN JONES. PT HAS HX OF DMI AND IS NON COMPLIANT WITH RX FOR IT. PT HAS LONG HX OF DKA AND HAS MULTIPLE IV SCAR TISSUE AT ANY POSSIBLE IV SIGHTS. IO PERFORMED IN PT LEFT HUMERUS.
[2020-01-15 06:36] LABS: PH, VENOUS 6.698 pH (7.320-7.420)
[2020-01-15 06:50] LABS: MEAN CORPUSCULAR HEMOGLOBIN 31.1 pg (27.0-34.8); MEAN PLATELET VOLUME 9.4 fL (7.4-10.4); PLATELET COUNT 575 x10^3/uL (130-400); RED BLOOD COUNT 3.92 x10^6/uL (3.82-5.3)
[2020-01-15] MEDS ORDERED: SUCCINYLCHOLINE 20 MG/ML, 10ML IVPush ONE (07:00)
[2020-01-15] MEDS ORDERED: ETOMIDATE 20 MG/10 ML IVPush ONE (07:00)
[2020-01-15] MEDS ORDERED: PROPOFOL 100 ML IV PRN ×2 (07:00→10:30)
--- NOTE | 2020-01-15 07:16 | NUR ---
SBAR BEDSIDE HAND-OFF REPORT RECEIVED FROM ELLE MARTIN AND DR. ATKINS. PATIENT INTUBATED AT APPROXIMATELY 0655 WITH AN 8.0 CM ET TUBE WITH 10MG ETOMIDATE AND 100MG SUCCINYLCHOLINE IVP BY DR. ATKINS WHICH PATIENT TOLERATED WELL. 14FR NG TUBE INSERTED IN THE RIGHT NARE. IMMEDIATE DARK ORANGE GASTRIC CONTENTS OBTAINED.
[2020-01-15 07:18] LABS: MD YES
[2020-01-15 07:19] LABS: BANDS%(MANUAL) 2 % (0-7); LYMPHS% (MANUAL) 30 % (22-44); METAMYELOCYTES# (MANUAL) 0.25 x10^3/uL (0-0); METAMYELOCYTES% (MANUAL) 1 % (0-1); MONOS#(MANUAL) 0.75 x10^3/uL (0.3-2.7); MONOS% (MANUAL) 3 % (2-9); SEGS% (MANUAL) 64 % (42-75)
[2020-01-15 07:20] LABS: ANISOCYTOSIS 2+; POLYCHROMASIA 1+
[2020-01-15 07:21] LABS: <PLATELET ESTIMATE> INCREASED; <PLT MORPHOLOGY> NORMAL PLT MORPH; OVALOCYTES 1+; TEAR DROPS 1+
[2020-01-15] MEDS ORDERED: REGULAR INSULIN 100 UNITS in SODIUM CHLORIDE 0.9% 99 ML IV PRN ×2 (07:30→09:00)
[2020-01-15] MEDS ORDERED: POTASSIUM CHLORIDE 40 MEQ in SODIUM CHLORIDE 0.9% 500 ML IV ONE (07:30)
[2020-01-15 07:41] LABS: ANION GAP 28 mmol/L (5-15); CALCIUM 6.7 mg/dL (8.5-10.1); CHLORIDE 109 mmol/L (98-107); CREATININE 1.19 mg/dL (0.55-1.02)
--- NOTE | 2020-01-15 07:46 | NUR ---
IO CATHETER REMOVED. URINE COLLECTED AND SENT TO LAB.
[2020-01-15] MEDS ORDERED: FENTANYL PF 100 MCG/2ML ONE (07:51)
[2020-01-15] MEDS ORDERED: SODIUM CHLORIDE 0.9% 1,000 ML IV SCH (08:00)
[2020-01-15] MEDS ORDERED: FENTANYL PF 100 MCG/2ML IVPush ONE (08:00)
[2020-01-15] MEDS ORDERED: MIDAZOLAM HCL 50 MG in SODIUM CHLORIDE 0.9% 40 ML IV PRN (08:00)
[2020-01-15] MEDS ORDERED: PROPOFOL 10 MG/ML, 100ML IV ONE (08:00)
[2020-01-15] MEDS ORDERED: SUCCINYLCHOLINE 20 MG/ML, 10ML ONE (08:00)
[2020-01-15] MEDS ORDERED: SODIUM BICARB 8.4%, 50ML SYRINGE IVPB ONE (08:00)
[2020-01-15] MEDS ORDERED: ETOMIDATE 20 MG/10 ML ONE (08:00)
[2020-01-15] MEDS ORDERED: ONDANSETRON 2MG/ML, 2ML IV PRN ×2 (08:00→10:30)
[2020-01-15 08:27] LABS: MICROSCOPIC INDICATED
[2020-01-15 08:30] LABS: ALANINE AMINOTRANSFERASE 105 U/L (12-78); ALBUMIN 2.9 g/dL (3.4-5.0); ANION GAP 29 mmol/L (5-15); CALCIUM 7.1 mg/dL (8.5-10.1); CHLORIDE 110 mmol/L (98-107)
[2020-01-15 08:32] LABS: ALKALINE PHOSPHATASE 353 U/L (45-117); BILIRUBIN,TOTAL 0.4 mg/dL (0.2-1.0); TOTAL PROTEIN 6.9 g/dL (6.4-8.2)
--- NOTE | 2020-01-15 08:33 | NUR ---
CALLED PHARMACY AND REQUESTED INSULIN DRIP. NEW ORDER FOR NS 2L BOLUS STARTED. VS STABLE. PT RESTING COMFORATBLY.
[2020-01-15] MEDS ORDERED: PANTOPRAZOLE 40 MG IV ONE (08:35)
[2020-01-15] MEDS ORDERED: SODIUM BICARB 8.4%, 50ML SYRINGE ONE (08:35)
[2020-01-15] MEDS ORDERED: PIPERACILLIN/TAZO/PMX 3.375GM 50 ML ONE (08:37)
[2020-01-15] MEDS: PANTOPRAZOLE 40 MG IV IVPush SCH (08:49)
[2020-01-15] MEDS: PIPERACILLIN/TAZO/PMX 3.375GM 50 ML IV SCH ×3 (09:15→21:08)
--- NOTE | 2020-01-15 09:34 | NUR ---
SBAR TELEPHONE HAND-OFF REPORT GIVEN TO ELLE EDDY IN CCU. PT READY TO GO TO ROOM 553.
[2020-01-15] MEDS ORDERED: FENTANYL PF 100 MCG/2ML IVPush PRN (10:30)
[2020-01-15] MEDS ORDERED: SENNA 176 MG/5 ML ORAL SOL NG PRN (10:30)
[2020-01-15] MEDS ORDERED: BISACODYL 10 MG SUPP PR PRN (10:30)
[2020-01-15] MEDS ORDERED: LIDOCAINE-MPF 1%, 2ML ENDO PRN (10:30)
[2020-01-15] MEDS ORDERED: LACTULOSE 20 GM/30 ML UDC NG PRN (10:30)
[2020-01-15] MEDS ORDERED: FAMOTIDINE 20 MG/2 ML IV SCH (10:30)
[2020-01-15] MEDS ORDERED: GLUCAGON 1 MG IM PRN (10:30)
[2020-01-15] MEDS ORDERED: PHARMACY MAY ADJ FOR RENAL FX MC SCH (10:30)
[2020-01-15] MEDS ORDERED: ACETAMINOPHEN 650 MG SUPP PR PRN (10:30)
[2020-01-15] MEDS ORDERED: DEXTROSE 4 GM TAB.CHEW PO PRN (10:30)
[2020-01-15] MEDS ORDERED: DEXTROSE 50%, 50ML SYRINGE IVPush PRN (10:30)
[2020-01-15] MEDS ORDERED: SENNA/DOCUSATE TABLET NG PRN (10:30)
[2020-01-15] MEDS ORDERED: HEPARIN 5,000 UNITS/ML, 1ML SQ SCH (10:30)
[2020-01-15 12:30] LABS: ANION GAP 17 mmol/L (5-15); CALCIUM 6.6 mg/dL (8.5-10.1); CHLORIDE 119 mmol/L (98-107)
[2020-01-15] MEDS: D5%-0.45NACL+KCL 20MEQ 1,000 ML IV SCH ×2 (13:52→22:39)
[2020-01-15] MEDS ORDERED: CATHFLO-ALTEPLASE 2 MG/2 ML CATHFLUSH ONE ×2 (15:00→17:00)
[2020-01-15] MEDS: FENTANYL PF 100 MCG/2ML IVPush PRN ×2 (17:00→21:27)
[2020-01-15 17:48] LABS: ANION GAP 19 mmol/L (5-15); CHLORIDE 121 mmol/L (98-107); CREATININE 1.11 mg/dL (0.55-1.02)
[2020-01-15] MEDS: APIXABAN 5 MG TABLET PO SCH (21:21)
[2020-01-15 23:56] LABS: FIO2 RA %
[2020-01-16 00:06] LABS: ANION GAP 11 mmol/L (5-15); CHLORIDE 111 mmol/L (98-107); CREATININE 1.11 mg/dL (0.55-1.02)
[2020-01-16] MEDS: PIPERACILLIN/TAZO/PMX 3.375GM 50 ML IV SCH (03:26)
[2020-01-16 04:00] VITALS: BP 101/57
[2020-01-16 04:06] LABS: BASOPHILS % (AUTO) 1 % (0-1); EOSINOPHILS % (AUTO) 0 % (1-7); LYMPHOCYTES % (AUTO) 23 % (22-44); MEAN CORPUSCULAR HGB CONC 32.7 g/dL (32.4-35.8); MEAN PLATELET VOLUME 7.7 fL (7.4-10.4); MONOCYTES % (AUTO) 8 % (2-9); NEUTROPHILS % (AUTO) 68 % (42-75); PLATELET COUNT 225 x10^3/uL (130-400); RED BLOOD COUNT 2.75 x10^6/uL (3.82-5.3); RED CELL DISTRIBUTION WIDTH 15.9 % (9.6-15.2)
[2020-01-16 04:12] LABS: ANION GAP 12 mmol/L (5-15); CALCIUM 7.2 mg/dL (8.5-10.1); CHLORIDE 109 mmol/L (98-107); CREATININE 1.07 mg/dL (0.55-1.02)
[2020-01-16 04:20] LABS: MD NO
[2020-01-16] MEDS: ACETAMINOPHEN 325 MG TABLET PO PRN ×3 (04:23→21:12)
[2020-01-16] MEDS ORDERED: MAGNESIUM SULFATE PMX 4GM/100M 100 ML IVPB ONE (07:00)
[2020-01-16] MEDS ORDERED: POTASSIUM CHLORIDE 20 MEQ TAB.ER.PRT PO ONE ×2 (07:00→10:00)
[2020-01-16] MEDS: PANTOPRAZOLE 40 MG IV IVPush SCH (08:06)
[2020-01-16] MEDS: D5%-0.45NACL+KCL 20MEQ 1,000 ML IV SCH (08:06)
[2020-01-16] MEDS: FENTANYL PF 100 MCG/2ML IVPush PRN (08:06)
[2020-01-16] MEDS: APIXABAN 5 MG TABLET PO SCH ×2 (08:12→21:12)
[2020-01-16 08:22] LABS: ANION GAP 9 mmol/L (5-15); CALCIUM 7.4 mg/dL (8.5-10.1); CHLORIDE 108 mmol/L (98-107); CREATININE 1.07 mg/dL (0.55-1.02)
[2020-01-16] MEDS: INSULIN GLARGINE 100 UNITS/ML, PEN SQ-INSULIN SCH ×2 (10:14→22:16)
[2020-01-16] MEDS: INSULIN LISPRO 100 UNITS/ML, PEN SQ-INSULIN SCH ×3 (10:21→21:19)
[2020-01-16] MEDS ORDERED: SODIUM CHLORIDE 0.9% 1,000 ML IV SCH (14:00)
[2020-01-16 20:00] VITALS: BP 126/83
[2020-01-17 02:07] VITALS: BP 116/78
[2020-01-17 04:34] LABS: BASOPHILS % (AUTO) 1 % (0-1); EOSINOPHILS % (AUTO) 1 % (1-7); LYMPHOCYTES % (AUTO) 40 % (22-44); MEAN CORPUSCULAR HEMOGLOBIN 31.1 pg (27.0-34.8); MEAN CORPUSCULAR HGB CONC 32.9 g/dL (32.4-35.8); MEAN PLATELET VOLUME 7.8 fL (7.4-10.4); MONOCYTES % (AUTO) 7 % (2-9); NEUTROPHILS % (AUTO) 52 % (42-75); PLATELET COUNT 242 x10^3/uL (130-400); RED CELL DISTRIBUTION WIDTH 15.8 % (9.6-15.2)
[2020-01-17 04:35] LABS: MD NO
[2020-01-17 04:42] LABS: ANION GAP 9 mmol/L (5-15); CALCIUM 8.9 mg/dL (8.5-10.1); CHLORIDE 111 mmol/L (98-107); CREATININE 1.11 mg/dL (0.55-1.02)
[2020-01-17] MEDS: INSULIN LISPRO 100 UNITS/ML, PEN SQ-INSULIN SCH ×4 (06:50→21:05)
[2020-01-17 08:00] VITALS: BP 131/90
[2020-01-17] MEDS: APIXABAN 5 MG TABLET PO SCH ×2 (09:07→21:01)
[2020-01-17] MEDS: INSULIN GLARGINE 100 UNITS/ML, PEN SQ-INSULIN SCH ×2 (09:07→21:04)
[2020-01-17 14:49] VITALS: BP 124/82
[2020-01-17 21:07] VITALS: BP 118/80
[2020-01-18 01:09] VITALS: BP 110/72
[2020-01-18] MEDS: INSULIN LISPRO 100 UNITS/ML, PEN SQ-INSULIN SCH (07:00)
[2020-01-18 07:52] LABS: ANION GAP 7 mmol/L (5-15); BASOPHILS % (AUTO) 1 % (0-1); CALCIUM 8.1 mg/dL (8.5-10.1); CHLORIDE 112 mmol/L (98-107); CREATININE 0.61 mg/dL (0.55-1.02); EOSINOPHILS % (AUTO) 1 % (1-7); LYMPHOCYTES % (AUTO) 46 % (22-44); MEAN CORPUSCULAR HEMOGLOBIN 31.3 pg (27.0-34.8); MEAN CORPUSCULAR HGB CONC 32.9 g/dL (32.4-35.8); MEAN PLATELET VOLUME 7.7 fL (7.4-10.4); MONOCYTES % (AUTO) 9 % (2-9); NEUTROPHILS % (AUTO) 43 % (42-75); PLATELET COUNT 210 x10^3/uL (130-400); RED BLOOD COUNT 2.81 x10^6/uL (3.82-5.3); RED CELL DISTRIBUTION WIDTH 16.2 % (9.6-15.2)
[2020-01-18 07:55] VITALS: BP 127/90
[2020-01-18 07:56] LABS: MD NO
[2020-01-18] MEDS: APIXABAN 5 MG TABLET PO SCH (08:27)
[2020-01-18] MEDS: INSULIN GLARGINE 100 UNITS/ML, PEN SQ-INSULIN SCH (08:28)
[2020-01-18] MEDS ORDERED: APIX5TAB PO (09:49)
== END 2020-01-18 10:36 | disposition home or self-care (01) | DRG 637 ==
LOC: ED 06:24 → EDIP 06:33 → CSU 09:48 → DCLOUNGE 01-18 10:34
PROVIDERS: ADMIT Hospitalist; ATTEND Hospitalist
PROC: 0T9B30Z Drainage of Bladder with Drainage Device, Percutaneous Approach (ICD-10-PCS; principal; 2020-01-15)
PROC: 02HV33Z Insertion of Infusion Device into Superior Vena Cava, Percutaneous Approach (ICD-10-PCS; 2020-01-15)
PROC: 06HY33Z Insertion of Infusion Device into Lower Vein, Percutaneous Approach (ICD-10-PCS; 2020-01-15)
PROC: 5A1935Z Respiratory Ventilation, Less than 24 Consecutive Hours (ICD-10-PCS; 2020-01-15)
PROC: 0BH17EZ Insertion of Endotracheal Airway into Trachea, Via Natural or Artificial Opening (ICD-10-PCS; 2020-01-15)
DX: E10.10 Type 1 diabetes mellitus with ketoacidosis without coma (principal); J96.01 Acute respiratory failure with hypoxia; N17.0 Acute kidney failure with tubular necrosis; I82.401 Acute embolism and thrombosis of unspecified deep veins of right lower extremity; R65.10 Systemic inflammatory response syndrome (SIRS) of non-infectious origin without acute organ dysfunction; Z99.11 Dependence on respirator [ventilator] status; D50.9 Iron deficiency anemia, unspecified; D72.829 Elevated white blood cell count, unspecified; D75.89 Other specified diseases of blood and blood-forming organs; E10.43 Type 1 diabetes mellitus with diabetic autonomic (poly)neuropathy; E55.9 Vitamin D deficiency, unspecified; E78.5 Hyperlipidemia, unspecified; E86.9 Volume depletion, unspecified; I10 Essential (primary) hypertension; K31.84 Gastroparesis; F12.10 Cannabis abuse, uncomplicated; R40.2430 Glasgow coma scale score 3-8, unspecified time; R62.50 Unspecified lack of expected normal physiological development in childhood; K82.8 Other specified diseases of gallbladder; Z79.01 Long term (current) use of anticoagulants; Z79.4 Long term (current) use of insulin; Z83.3 Family history of diabetes mellitus; Z86.718 Personal history of other venous thrombosis and embolism; Z91.19 Patient's noncompliance with other medical treatment and regimen; Z91.040 Latex allergy status; Z91.018 Allergy to other foods
CPT/HCPCS: 31500; 36415; 36556; 36600; 96361; 96374; 96375; 99291; 99292; J3490; 71045; 80048; 80053; 81001; 82010; 82533; 82803; 82962; 83605; 83690; 83735; 83930; 84100; 84478; 85025; 87040; 87081; 93005; 94002; G0378; J2543; J2704; J2997; J3010; J3480; C9113; J0330; J1815; J3475; J7030; J7040

== ENCOUNTER 2020-02-01 18:10 | Inpatient (IN) | payer MEDICAID ==
[~2020-02-01] VITALS: Ht 165.1 cm; Wt 57.0 kg
[2020-02-01] MEDS ORDERED: PLEASE ENTER HEIGHT AND WEIGHT MC SCH (18:30)
[2020-02-01] MEDS ORDERED: SODIUM CHLORIDE 0.9% 1,000ML IVBOLUS ONE ×2 (18:30→21:00)
[2020-02-01 18:57] LABS: FIO2 ROOM AIR %
[2020-02-01 19:02] LABS: ALBUMIN 3.3 g/dL (3.4-5.0); CALCIUM 9.1 mg/dL (8.5-10.1); CHLORIDE 104 mmol/L (98-107)
[2020-02-01 19:06] LABS: ALANINE AMINOTRANSFERASE 148 U/L (12-78); ALKALINE PHOSPHATASE 456 U/L (45-117); BILIRUBIN,TOTAL 0.5 mg/dL (0.2-1.0); CREATININE 1.24 mg/dL (0.55-1.02); TOTAL PROTEIN 7.4 g/dL (6.4-8.2)
[2020-02-01 19:23] LABS: ANION GAP 29 mmol/L (5-15)
[2020-02-01 19:29] LABS: ACETONE, SERUM Large (80mg/dL) (Negative)
[2020-02-01] MEDS ORDERED: SODIUM CHLORIDE 0.9%, 500ML IVBOLUS ONE (19:30)
--- NOTE | 2020-02-01 19:30 | NUR ---
THIS IS A WELL KNOWN 24 YO FEMALE TO THIS ER, BIB [facility] FROM HOME FOR HIGH BLOOD SUGAR, KUSSMAL RESPIRATIONS, AND ALTERED MENTAL STATUS. PATIENT IS UNABLE TO HAVE CLEAR SPEECH, KUSSMAL RESPIATIONS NOTED WITH FRUIT-LIKE ODOROUS BREATH, A&OX0 AT THIS TIME. PATIENT IS COMBATIVE AND UNCOOPERATIVE. ELLE CARDOZA TO BEDSIDE FOR ULTRASOUND PIV. LABS DRAWN, IVF RUNNING, ALL MONITORING IN PLACE, VSS AT THIS TIME.
[2020-02-01 19:44] LABS: MEAN PLATELET VOLUME 8.3 fL (7.4-10.4)
--- NOTE | 2020-02-01 19:55 | NUR ---
BERNABE RN: ERP NOTIFIED OF PT LABS. AWARE 2 LITERS GIVEN. PER ERP, NS @ 250ML/HR TO BE GIVEN. DISCUSSED FURTHER MEDS--INSULIN AND BICARB. ERP STATES ADMITTING MD WILL BE ORDERING MEDS SOON. NO FURTHER ORDERS GIVEN AT THIS TIME. CALL TO BE MADE TO ADMITTING MD.
[2020-02-01 20:00] LABS: MEAN CORPUSCULAR HEMOGLOBIN 29.8 pg (27.0-34.8); PLATELET COUNT 634 x10^3/uL (130-400); RED BLOOD COUNT 3.38 x10^6/uL (3.82-5.3); RED CELL DISTRIBUTION WIDTH 18.1 % (9.6-15.2)
[2020-02-01] MEDS ORDERED: SODIUM CHLORIDE 0.9% 1,000 ML IV ONE (20:00)
[2020-02-01 20:02] LABS: MD YES
[2020-02-01 20:10] LABS: BAND#(MANUAL) 1.35 x10^3/uL; BANDS%(MANUAL) 8 % (0-7); BASOS#(MANUAL) 0.17 x10^3/uL (0-0.1); BASOS% (MANUAL) 1 % (0-1); LYMPH#(MANUAL) 2.87 x10^3/uL (1-3.4); LYMPHS% (MANUAL) 17 % (22-44); MONOS#(MANUAL) 1.35 x10^3/uL (0.3-2.7); MONOS% (MANUAL) 8 % (2-9); MYELOCYTES# (MANUAL) 0.17 x10^3/uL (0-0); MYELOCYTES% (MANUAL) 1 % (0-0); SEG#(MANUAL) 10.99 x10^3/uL (1.8-6.8); SEGS% (MANUAL) 65 % (42-75)
[2020-02-01 20:11] LABS: POLYCHROMASIA 1+
[2020-02-01 20:14] LABS: CRENATED 1+
[2020-02-01 20:15] LABS: <PLATELET ESTIMATE> INCREASED; <PLT MORPHOLOGY> NORMAL PLT MORPH
--- NOTE | 2020-02-01 20:15 | NUR ---
REPORT TO JOHAN ALMEIDA.
--- NOTE | 2020-02-01 20:24 | NUR ---
THIS RN SPOKE WITH DR. ORDAZ, HE IS PUTTING IN ORDERS FOR INSULIN DRIP AT THIS TIME. PATIENT SLEEPING, KUSSMAL RESPIATIONS STILL PRESENT, LESS TACHYPNIC AT 28 BREATHS PER MIN, ALL MONITORING IN PLACE, 3D LITER RUNNING AT 250ML/HR.
--- NOTE | 2020-02-01 20:30 | NUR ---
ETCO2 MONITOR IN PLACE
[2020-02-01] MEDS ORDERED: SODIUM BICARB 8.4%, 50ML SYRINGE ONE (20:57)
[2020-02-01] MEDS ORDERED: MORPHINE SULFATE 4 MG/ML, 1ML IVPush PRN (21:00)
[2020-02-01] MEDS ORDERED: OXYcodone IR 5MG TABLET PO PRN (21:00)
[2020-02-01] MEDS ORDERED: ONDANSETRON ODT 4 MG PO PRN (21:00)
[2020-02-01] MEDS ORDERED: POLYETHYLENE GLYCOL 17 GM PACKET PO PRN (21:00)
[2020-02-01] MEDS ORDERED: BISACODYL 10 MG SUPP PR PRN (21:00)
[2020-02-01] MEDS ORDERED: HEPARIN 5,000 UNITS/ML, 1ML SQ SCH (21:00)
[2020-02-01] MEDS ORDERED: DOCUSATE 100 MG CAPSULE PO PRN (21:00)
[2020-02-01] MEDS ORDERED: ACETAMINOPHEN 325 MG TABLET PO PRN (21:00)
[2020-02-01] MEDS ORDERED: D5%-0.45NACL+KCL 20MEQ 1,000 ML IV SCH (21:00)
[2020-02-01] MEDS ORDERED: SODIUM BICARB 8.4%, 50ML SYRINGE IVPB ONE (21:00)
[2020-02-01] MEDS ORDERED: ONDANSETRON 2MG/ML, 2ML IV PRN (21:00)
[2020-02-01] MEDS ORDERED: PROMETHAZINE 25 MG/ML, 1ML IM PRN (21:00)
[2020-02-01] MEDS ORDERED: SODIUM CHLORIDE 0.9% 1,000 ML IV SCH (21:00)
[2020-02-01] MEDS ORDERED: REGULAR INSULIN 100 UNITS in SODIUM CHLORIDE 0.9% 99 ML IV PRN (21:00)
[2020-02-01] MEDS ORDERED: HEPARIN 5,000 UNITS/ML, 1ML ONE (21:01)
--- NOTE | 2020-02-01 21:17 | NUR ---
UA COLLECTED AND SENT TO LAB
[2020-02-01] MEDS: APIXABAN 5 MG TABLET PO SCH (21:19)
[2020-02-01 21:27] LABS: MICROSCOPIC AUTO
--- NOTE | 2020-02-01 21:30 | NUR ---
PATIENT MEDICATED PER EMAR, INSULIN INFUSION STARTED AT THIS TIME. ETCO2 READS 19
--- NOTE | 2020-02-01 22:21 | NUR ---
FSBS 592, DROPPED BY 118, DECREASED INSULIN DRIP RATE TO 4UNITS/HR PER PROTOCOL IN MAR Addendum: 02/01/20 at 2225 by TAL VERIFIED BY JACKIE. ALMEIDA
[2020-02-01 23:10] LABS: ALANINE AMINOTRANSFERASE 148 U/L (12-78); ALBUMIN 3.1 g/dL (3.4-5.0); ANION GAP 29 mmol/L (5-15); BILIRUBIN,TOTAL 0.5 mg/dL (0.2-1.0); CALCIUM 7.9 mg/dL (8.5-10.1); CHLORIDE 109 mmol/L (98-107); CREATININE 1.29 mg/dL (0.55-1.02); TOTAL PROTEIN 7.4 g/dL (6.4-8.2)
[2020-02-01 23:15] LABS: ALKALINE PHOSPHATASE 456 U/L (45-117)
--- NOTE | 2020-02-01 23:20 | NUR ---
FSBS READ HIGH, PLACED ORDER FOR LAB TO COME DRAW
--- NOTE | 2020-02-01 23:32 | NUR ---
LAB DRAW FROM, PHARMACY DONE AT APPROX 2305 GLUCOSE RESULTED 722. INSULIN DRIP TITRATED UP TO 7UNITS/HR PER PROTOCOL OF GLUCOSE GREATER THAN 400. VERIFIED BY ELLE CAMARENA.
--- NOTE | 2020-02-02 00:40 | NUR ---
INSULIN DRIP TITRATED DOWN TO 6 UNITS/HR PER PROTOCOL, VERIFIED BY ELLE HALEY
--- NOTE | 2020-02-02 00:57 | NUR ---
REPORT GIVEN TO ELLE RUCKER. PLAN OF CARE DISCUSSED
--- NOTE | 2020-02-02 02:30 | NUR ---
PT CLEANED OF SOILED LINES AND FRESH LINES AND PADS PLACED UNDER PT. VSS
--- NOTE | 2020-02-02 03:31 | NUR ---
PT CLEANED OF SOILED LINES, HILL CATH PLACED WITH LARGER BALLOON, 25CC SALINE IN BALLOON. PT TRANSFERED TO HOSPITAL BED AND PLACED ON ALL MONITORS AGIAN. PT APPEARS MORE COMFORTABLE AT THIS TIME.
--- NOTE | 2020-02-02 03:56 | NUR ---
PT BLOOD SUGAR STEADILY DECREASING BY 80-100mg/dL PER HOUR, INSULIN DRIP REMAINS AT 5units/hr AT THIS TIME.
--- NOTE | 2020-02-02 05:11 | NUR ---
REPORT RECIEVED BY ELLE BLUM. PT TRANSFERED TO ROOM 18. PT ON ALL MONITORS, SET UP FOR CENTRAL LINE AT BEDSIDE. PT SLEELPING, RESPIRATIONS EVEN.
--- NOTE | 2020-02-02 06:08 | NUR ---
DR. LAO ATTEMPTED FEMORAL CENTRAL LINE X2, BOTH UNSUCCESSFUL. PRESSURE AT INSERTION SITE HELD AND TEGADERM AND GAUZE PLACED. DR. LAO COLLECTED FEMORAL DRAW FOR LAB TO COLLECT LABS. PT CURRENTLY HAS ONE LINE RUNNING INSULIN AT 5 UNITS/HR PER PROTOCOL, AND ANOTHER NORMAL SALINE BOLUS INITIATED. DR. LAO TO ATTEMPT ANOTHER CENTRAL LINE LATER. PT ON ALL MONITORS, 02, AND GIVEN WARM BLANKET.
[2020-02-02] MEDS ORDERED: LIDOCAINE-MPF 1%, 5ML ONE (06:19)
[2020-02-02] MEDS ORDERED: LIDOCAINE 1%, 10ML INFIL ONE (06:30)
[2020-02-02] MEDS ORDERED: LIDOCAINE 2% 100MG/5ML SYRINGE IVPush ONE (06:30)
[2020-02-02 06:40] LABS: ANION GAP 17 mmol/L (5-15); CALCIUM 7.9 mg/dL (8.5-10.1); CHLORIDE 124 mmol/L (98-107)
--- NOTE | 2020-02-02 06:56 | NUR ---
PER DR. LAO IO WAS INSERTED INTO LEFT HUMERAL HEAD AFER LIDOCAIN ADMIN. BS WAS RECHECKED AND FOUND TO BE 151, D5W-0.45 NS- 20 MEQ POASSIUM ORDERED. REPOT GIVEN TO DAY SHIFT RN NEFTALY
--- NOTE | 2020-02-02 07:00 | NUR ---
REC BS REPORT PT RESTING NADN IV UNFUSING WELL
--- NOTE | 2020-02-02 07:20 | NUR ---
D5W SOLUTION RECIEVED FROM PHARMACY AND SLY, PT RESTING COMFORTABLY. NEFTALY RN TO ASSUME CARE
--- NOTE | 2020-02-02 07:56 | NUR ---
REVIEWED BS W DR TILLMAN AND THE START OF THE D5W PHONE ORDERED REQUESTED TO REDUCE INSULIN DRIP TO 3U PER HR
[2020-02-02] MEDS: PANTOPRAZOLE 40 MG IV IVPush SCH (09:00)
--- NOTE | 2020-02-02 09:30 | NUR ---
CALL PLACED TO DR TILLMAN RE PT DECREASING BP AND HR CURRENT 113
[2020-02-02] MEDS ORDERED: NOREPINEPHRINE 8 MG in SODIUM CHLORIDE 0.9% 242 ML IV PRN (10:00)
[2020-02-02] MEDS ORDERED: LACTATED RINGERS 1,000 ML IVBOLUS ONE (10:00)
--- NOTE | 2020-02-02 10:34 | NUR ---
CALLED PHARM AGREE TO RUN NOREPI TO THE IO AND INSULIN AND D5 W K TOGETHER IN THE IV
[2020-02-02] MEDS ORDERED: ACETAMINOPHEN 650 MG SUPP PR PRN (12:00)
[2020-02-02] MEDS: PIPERACILLIN/TAZO/PMX 3.375GM 50 ML IV SCH ×2 (12:00→17:53)
[2020-02-02] MEDS ORDERED: ACETAMINOPHEN 325 MG TABLET ONE (12:01)
[2020-02-02] MEDS ORDERED: APIXABAN 5 MG TABLET ONE (12:02)
[2020-02-02] MEDS: APIXABAN 5 MG TABLET PO SCH (12:08)
[2020-02-02 12:18] LABS: ANION GAP 9 mmol/L (5-15); CALCIUM 7.9 mg/dL (8.5-10.1); CHLORIDE 126 mmol/L (98-107); CREATININE 0.98 mg/dL (0.55-1.02)
[2020-02-02] MEDS ORDERED: PIPERACILLIN/TAZO/PMX 3.375GM 50 ML ONE (12:28)
--- NOTE | 2020-02-02 12:57 | NUR ---
PT IS NOW MORE COOPERATIVE INLAB DRAWS AND PO MEDS IVS CONTINUE TO IN FUSE WELL NO COMPLAINTS AT IV SITES INSULIN AT 1U EPI AT 0.1 BS AND BP APPEAR TO BE STABLIZING PT REPORTS FEELING BETTER
[2020-02-02] MEDS ORDERED: POTASSIUM CHLORIDE 40 MEQ in DEXTROSE 5% 1,000 ML IV SCH (14:30)
--- NOTE | 2020-02-02 15:12 | NUR ---
800 ML URINE REMOVED FROM HILL BAG
--- NOTE | 2020-02-02 15:52 | NUR ---
CALLED DR TILLMAN REVIEW BP AND BS VO TO REDUCE LEVO TO 0.04 GIVE 10 LANTUS AND IN 1 HR TURN OFF D5 AND INSULIN DRIP
[2020-02-02] MEDS ORDERED: INSULIN GLARGINE 100 UNITS/ML, PEN SQ-INSULIN ONE (16:00)
[2020-02-02] MEDS ORDERED: DEXTROSE 4 GM TAB.CHEW PO PRN (16:00)
[2020-02-02] MEDS ORDERED: DEXTROSE 50%, 50ML SYRINGE IVPush PRN (16:00)
[2020-02-02] MEDS ORDERED: GLUCAGON 1 MG IM PRN (16:00)
[2020-02-02] MEDS ORDERED: INSULIN LISPRO 100 UNITS/ML, PEN SQ-INSULIN SCH (16:00)
[2020-02-02 16:53] LABS: ANION GAP 18 mmol/L (5-15); CALCIUM 7.6 mg/dL (8.5-10.1); CHLORIDE 112 mmol/L (98-107); CREATININE 1.01 mg/dL (0.55-1.02)
--- NOTE | 2020-02-02 17:03 | NUR ---
REC CALL FROM DR TILLMAN A GAP INCREASING TO CONTINUE INSULIN DRIP AND D5 Addendum: 02/02/20 at 1704 by CHRISTIE AND REMOVE FOOD GIVEN TO THE PT
[2020-02-02] MEDS: D5%-0.45NACL+KCL 20MEQ 1,000 ML IV SCH (17:15)
[2020-02-02] MEDS: REGULAR INSULIN 100 UNITS in SODIUM CHLORIDE 0.9% 99 ML IV PRN ×3 (17:19→20:50)
--- NOTE | 2020-02-02 17:38 | NUR ---
MEAL PULLED FROM THE PT SHE HAD CONSUMED APPROX 50% OF ADA TRAY PT CONTINUES TO DRINK FLUIDS AND NO NAUSEA NOTED
--- NOTE | 2020-02-02 19:04 | NUR ---
BEDSIDE REPORT FROM ELLE HIGGINBOTHAM. FIRST CONTACT. PT AWAKE, ALERT AND ORIENTED. LEVO INF 0.4MCG/KG/MIN MAP 74, K+.45NS RUNNING, INSULIN AT 4UNITS/HR. DUE FOR NEXT BG 1929. NSR NO ECTOPY. RR EQUAL AND UNLABORED. WILL CONTINUE TO MONITOR, CHEMS Q 4HRS. AG NOW 18. POS UO.
--- NOTE | 2020-02-02 20:03 | NUR ---
PT REFUSES TO USE BEDPAN, ASSISTED PT TO BSC. VS REMAIN STABLE.
--- NOTE | 2020-02-02 20:13 | NUR ---
LARGE, FORMED LIGHT COLORED BM. PT PLACED BACK INTO BED. VSS.
--- NOTE | 2020-02-02 20:15 | NUR ---
assumed care of pt. report from Valerie ALMEIDA pt here for DKA. pt is currently a CCU hold. pt is frequently treated in this ER for same. pt currently has insulin gtt running as well as levophed to maintain B/P. pt is currently on hospital bed and is drowsy. no family at bedside
--- NOTE | 2020-02-02 20:30 | NUR ---
pt has been moved from room 18 to Trauma1. lines traced and labeled for safety. pt is able to CALLE, but is tired and not very cooperative with movement
--- NOTE | 2020-02-02 20:40 | NUR ---
ALL BELONGINGS AND PT MOVED TO T1, REPORT TO ELLE BOATENG.
[2020-02-02] MEDS ORDERED: INSULIN GLARGINE 100 UNITS/ML, PEN SQ-INSULIN SCH (21:00)
--- NOTE | 2020-02-02 21:15 | NUR ---
lab has been to bedside to draw pt positioning for comfort
[2020-02-02 21:19] LABS: ANION GAP 11 mmol/L (5-15); CALCIUM 7.5 mg/dL (8.5-10.1); CHLORIDE 110 mmol/L (98-107); CREATININE 1.22 mg/dL (0.55-1.02)
--- NOTE | 2020-02-02 21:20 | NUR ---
pt positioning for comfort. skin ispection completed. pt skin is intact. franco to drainage. pt currently has IO to L shoulder and 18g PIV to JESSICA. per report, previous central line attempts have been unsuccessful. pt has insuln gtt and D5 0.45NS running in the same line, verified that it is compatible per pharmacy
--- NOTE | 2020-02-02 21:42 | NUR ---
no change to insulin gtt Addendum: 02/02/20 at 2207 by RAISA no change to insulin gtt verified by Saritha Amador RN
--- NOTE | 2020-02-02 22:05 | NUR ---
pt resting in position of comfort with ees closed. no apparent distress
--- NOTE | 2020-02-02 22:34 | NUR ---
no change to insulin gtt. verified with Harshil ALMEIDA. pt sleeping intermittently. also taking PO ice chips without difficulty
--- NOTE | 2020-02-02 23:02 | NUR ---
this RN has spoken to Dr Davis regarding titration to decrease levophed gtt, per MD OK to titrate to off if tolerated by pt and MAP stays above parameters of >60
[2020-02-02 23:26] LABS: ANION GAP 10 mmol/L (5-15); CALCIUM 7.7 mg/dL (8.5-10.1); CHLORIDE 111 mmol/L (98-107); CREATININE 1.12 mg/dL (0.55-1.02)
--- NOTE | 2020-02-02 23:27 | NUR ---
have attempted to discuss DVT pophylaxis with pt. pt refusing sequential stocking machines. pt refuses to wear ADRIANNA hose. pt now becoming agitated and states "I don't want to wear those! I hate them!" attempting to calm pt. atempted to give pt education regarding the importance of DVT prevention, pt states "I don't care"
--- NOTE | 2020-02-02 23:45 | NUR ---
pt positioning or comfort. pt updated on POC. pt verbalized undersanding. lights dimmed for comfort
--- NOTE | 2020-02-03 00:45 | NUR ---
pt is now much more awake. sitting up in bed in position of comfort. taking PO ice chips without difficulty. pt given PO jello as pt has orders for clear liquid diet
--- NOTE | 2020-02-03 01:14 | NUR ---
pt has tolerated jello and ice chips well. PO broh given per request. pt denies nausea. no vomiting. no new c/o
[2020-02-03 01:16] LABS: ANION GAP 9 mmol/L (5-15); CALCIUM 7.5 mg/dL (8.5-10.1); CHLORIDE 112 mmol/L (98-107); CREATININE 0.98 mg/dL (0.55-1.02)
--- NOTE | 2020-02-03 01:38 | NUR ---
insulin gtt resumed per protocol. pt re-education regarding the importance of wearing mask. pt verbalized understanding. pt resting in position of comfort
--- NOTE | 2020-02-03 01:46 | NUR ---
pt resting with eyes closed. no new c/o. no apparent distress. report to Shahnaz ALMEIDA for lunch
--- NOTE | 2020-02-03 02:22 | NUR ---
PT RESTING NO NEEDS AT THIS TIME, NADN LIGHTS DIMMED FOR COMFORT, VS REMAIN STABLE AT THIS TIME
[2020-02-03] MEDS ORDERED: PIPERACILLIN/TAZO/PMX 3.375GM 50 ML ONE ×2 (02:44→14:33)
[2020-02-03] MEDS ORDERED: APIXABAN 5 MG TABLET ONE (02:44)
[2020-02-03] MEDS: APIXABAN 5 MG TABLET PO SCH ×3 (02:50→20:06)
[2020-02-03] MEDS: PIPERACILLIN/TAZO/PMX 3.375GM 50 ML IV SCH ×4 (02:52→20:07)
[2020-02-03] MEDS: D5%-0.45NACL+KCL 20MEQ 1,000 ML IV SCH (03:06)
--- NOTE | 2020-02-03 03:14 | NUR ---
pt positioning for comfort. new fluid bag infusion initiated. pt updated on POC. pt resting with lights dimmed in position of comfort
[2020-02-03 03:16] LABS: ANION GAP 8 mmol/L (5-15); CALCIUM 7.5 mg/dL (8.5-10.1); CHLORIDE 115 mmol/L (98-107)
--- NOTE | 2020-02-03 05:05 | NUR ---
spoke with Dr. Cyr regarding pt FSBS trends and insulin gtt levels. per MD, insulin gtt and fluids to continue at this time and be re-evaluated by day shift MD
[2020-02-03 06:00] LABS: BASOPHILS % (AUTO) 1 % (0-1); EOSINOPHILS % (AUTO) 0 % (1-7); LYMPHOCYTES % (AUTO) 29 % (22-44); MEAN CORPUSCULAR HEMOGLOBIN 30.9 pg (27.0-34.8); MONOCYTES % (AUTO) 9 % (2-9); NEUTROPHILS % (AUTO) 61 % (42-75); PLATELET COUNT 231 x10^3/uL (130-400); RED BLOOD COUNT 2.66 x10^6/uL (3.82-5.3); RED CELL DISTRIBUTION WIDTH 16.3 % (9.6-15.2)
[2020-02-03 06:08] LABS: MD NO
[2020-02-03 06:11] LABS: ALANINE AMINOTRANSFERASE 84 U/L (12-78); ALBUMIN 2.4 g/dL (3.4-5.0); ANION GAP 10 mmol/L (5-15); CALCIUM 7.9 mg/dL (8.5-10.1); CHLORIDE 113 mmol/L (98-107)
[2020-02-03 06:14] LABS: ALKALINE PHOSPHATASE 289 U/L (45-117); BILIRUBIN,TOTAL 0.3 mg/dL (0.2-1.0); CREATININE 1.03 mg/dL (0.55-1.02); TOTAL PROTEIN 5.8 g/dL (6.4-8.2)
--- NOTE | 2020-02-03 06:14 | NUR ---
pt positioning for comfort. updated on POC. pt verbalized understanding pt continues as CCU hold, awaiting bed assignment
--- NOTE | 2020-02-03 06:21 | NUR ---
pt continues to refuse DVT prophylaxis at this time with sequential stockings or ADRIANNA hose
--- NOTE | 2020-02-03 07:00 | NUR ---
REPORT RECEIVED, CARE ASSUMED. PT SLEEPING, AROUSES TO NAME. SR PER MONITOR. AUTO BP AND PULSE OX IN PLACE. PT CONT WITH D5 1/2 NS WITH 20MEQ KCL INFUSING AT 125. INSULIN GTT AT 1UNIT/HR INFUSING WITHOUT REDNESS/SWELLING. HILL TO DOWN DRAIN.
--- NOTE | 2020-02-03 07:51 | NUR ---
CALL TO DR TILLMAN, DISCUSSED PT STATUS, CURRENT FS. WAITING FOR NEXT CMP TO RESULT. IF BICARB GREATER THAN 16 WILL DC INSULIN GTT. NO NEW ORDERS AT THIS TIME.
--- NOTE | 2020-02-03 08:28 | NUR ---
cardiac rhythm strip printed and placed on chart.
[2020-02-03] MEDS: SODIUM CHLORIDE FLUSH 10ML SYR IVF SCH ×4 (08:31→20:07)
--- NOTE | 2020-02-03 08:35 | NUR ---
9 am dose of eliquis held was given at 0250.
--- NOTE | 2020-02-03 09:16 | NUR ---
CALL TO DR TILLMAN, DISCUSSED ZOSYN DUE FOR ADMINISTRATION, NOT COMPATIBLE WITH INSULIN. ZOSYN DOSE TO BE HELD, AUGMENTIN 875 ORDERED. REQUESTED FROM PHARMACY. PT CONT MOSTLY SLEEPING, AROUSES TO NAME, FOLLOWS COMMANDS. CONT SR PER MONITOR. PO FLUIDS AT BEDSIDE. Addendum: 02/03/20 at 0919 by LAMAR AWARE OF CREATININE OF 1.03, OK'D TO GIVE DOSE OF AUGMENTIN
[2020-02-03] MEDS ORDERED: AMOXICILLIN/CLAV 875-125MG TABLET PO SCH (09:30)
[2020-02-03] MEDS ORDERED: PANTOPRAZOLE 40 MG IV ONE (09:33)
[2020-02-03] MEDS: PANTOPRAZOLE 40 MG IV IVPush SCH (09:39)
--- NOTE | 2020-02-03 09:56 | NUR ---
PT PROVIDED WITH ICE CHIPS AND CHICKEN BROTH. NO OTHER NEEDS EXPRESSED AT THIS TIME. CONT SR PER MONITOR. INSULIN AND D5 1/2 NS WITH 20 MEQ KCL CONT TO INFUSE IN IV. NO REDNESS/SWELLING NOTED.
[2020-02-03 09:58] LABS: ANION GAP 9 mmol/L (5-15); CALCIUM 7.7 mg/dL (8.5-10.1); CHLORIDE 119 mmol/L (98-107); CREATININE 0.94 mg/dL (0.55-1.02)
--- NOTE | 2020-02-03 10:30 | NUR ---
IV FLUIDS AND AUGMENTIN REQUESTED FROM PHARMACY. PT WITH HEAD UNDER COVERS, AROUSES TO NAME. COOPERATIVE WITH FINGER STICKS. DECLINE SCD/ADRIANNA HOSE. SR PER MONITOR. AUTO BP AND PULSE OX IN PLACE. D5 1/2NS WITH 20KCL AND INSULIN CONT TO INFUSE WITHOUT REDNESS/SWELLING. NO NEEDS EXPRESSED AT THIS TIME. CONT TO AWAIT FURTHER DISPOSITION.
[2020-02-03] MEDS ORDERED: INSULIN GLARGINE 100 UNITS/ML, PEN SQ-INSULIN ONE (11:00)
[2020-02-03] MEDS ORDERED: DEXTROSE 4 GM TAB.CHEW PO PRN (11:00)
[2020-02-03] MEDS ORDERED: DEXTROSE 50%, 50ML SYRINGE IVPush PRN (11:00)
[2020-02-03] MEDS ORDERED: GLUCAGON 1 MG IM PRN (11:00)
[2020-02-03] MEDS ORDERED: POTASSIUM CHLORIDE 20 MEQ TAB.ER.PRT PO ONE (11:00)
[2020-02-03 11:05] LABS: MICROSCOPIC INDICATED
[2020-02-03] MEDS ORDERED: POTASSIUM CHLORIDE 20 MEQ TAB.ER.PRT ONE (11:10)
[2020-02-03] MEDS ORDERED: AMOXICILLIN/CLAV 875-125MG TABLET ONE (11:10)
[2020-02-03] MEDS: INSULIN LISPRO 100 UNITS/ML, PEN SQ-INSULIN SCH ×3 (11:30→20:15)
--- NOTE | 2020-02-03 11:33 | NUR ---
PT MEDICATED ORDERED. LANTUS ONE TIME DOSE ADMINISTERED ORDERED. ADA MEAL TRAY REQUEST FROM DIETARY. PT UPDATED ON POC. INSULIN AND D5 1/2 NS WITH 20 MEQ KCL TO BE TURNED OFF IN ONE HOUR. PT DECLINED WASH CLOTH FOR FACE AND HANDS. PT PROVIDED WITH BROTH.
--- NOTE | 2020-02-03 12:00 | NUR ---
PT SITTING UP ON BED. PROVIDED WITH MEAL TRAY, DRINKING PO FLUIDS WITHOUT DIFFICULTY. CONT SR PER MONITOR. AUTO BP AND PULSE OX IN PLACE. NO ACUTE DISTRESS NOTED. IV FLUIDS CONT TO INFUSE WITHOUT REDNESS/SWELLING. NO ADDITIONAL NEEDS EXPRESSED AT THIS TIME.
--- NOTE | 2020-02-03 12:29 | NUR ---
PT ATE 100% OF LUNCH MEAL, TAKING PO FLUIDS WITHOUT DIFFICULTY. IV INSULIN AND D5 1/2 NS WITH 20 MEQ KCL STOPPED. SR PER MONITOR. NO NEEDS EXPRESSED AT THIS TIME.
--- NOTE | 2020-02-03 12:39 | NUR ---
cardiac rhythm strip printed and placed on chart
[2020-02-03 13:16] LABS: ANION GAP 9 mmol/L (5-15); CALCIUM 7.7 mg/dL (8.5-10.1); CHLORIDE 116 mmol/L (98-107); CREATININE 0.96 mg/dL (0.55-1.02)
--- NOTE | 2020-02-03 13:26 | NUR ---
PT SLEEPING WITH HEAD UNDER BLANKETS. SR PER MONITOR. AWAITING FURTHER DISPOSITION.
--- NOTE | 2020-02-03 15:04 | NUR ---
SERGIO FISCHER'D INTACT. REPORT CALLED TO FRANKLIN ALMEIDA. PLAN OF CARE DISCUSSED. IV ZOSYN STILL INFUSING AT TIME OF TRNASFER
[2020-02-03 15:48] VITALS: BP 132/87
[2020-02-03 20:02] VITALS: BP 119/85
[2020-02-03] MEDS: INSULIN GLARGINE 100 UNITS/ML, PEN SQ-INSULIN SCH (20:16)
[2020-02-03] MEDS ORDERED: INSULIN GLARGINE 100 UNITS/ML, PEN SQ-INSULIN SCH (21:00)
[2020-02-04 02:00] VITALS: BP 117/75
[2020-02-04] MEDS: PIPERACILLIN/TAZO/PMX 3.375GM 50 ML IV SCH ×4 (02:59→20:50)
[2020-02-04 06:15] VITALS: BP 124/92
[2020-02-04 07:05] LABS: BASOPHILS % (AUTO) 1 % (0-1); EOSINOPHILS % (AUTO) 1 % (1-7); LYMPHOCYTES % (AUTO) 39 % (22-44); MEAN CORPUSCULAR HEMOGLOBIN 31.2 pg (27.0-34.8); MEAN CORPUSCULAR HGB CONC 32.3 g/dL (32.4-35.8); MEAN PLATELET VOLUME 7.5 fL (7.4-10.4); MONOCYTES % (AUTO) 8 % (2-9); NEUTROPHILS % (AUTO) 52 % (42-75); PLATELET COUNT 228 x10^3/uL (130-400); RED BLOOD COUNT 2.88 x10^6/uL (3.82-5.3); RED CELL DISTRIBUTION WIDTH 16.8 % (9.6-15.2)
[2020-02-04 07:09] LABS: MD NO
[2020-02-04 07:15] LABS: ANION GAP 7 mmol/L (5-15); CALCIUM 8.5 mg/dL (8.5-10.1); CHLORIDE 112 mmol/L (98-107); CREATININE 0.95 mg/dL (0.55-1.02)
[2020-02-04] MEDS: INSULIN LISPRO 100 UNITS/ML, PEN SQ-INSULIN SCH ×4 (07:43→20:51)
[2020-02-04] MEDS: SODIUM CHLORIDE FLUSH 10ML SYR IVF SCH ×4 (08:22→20:50)
[2020-02-04] MEDS: PANTOPRAZOLE 40 MG IV IVPush SCH (08:32)
[2020-02-04] MEDS: INSULIN GLARGINE 100 UNITS/ML, PEN SQ-INSULIN SCH ×2 (08:33→20:51)
[2020-02-04] MEDS: APIXABAN 5 MG TABLET PO SCH ×2 (08:33→20:50)
[2020-02-04 13:50] VITALS: BP 126/89
[2020-02-04 20:04] VITALS: BP 123/86
[2020-02-05 00:53] VITALS: BP 119/79
[2020-02-05] MEDS: PIPERACILLIN/TAZO/PMX 3.375GM 50 ML IV SCH ×3 (02:45→13:56)
[2020-02-05 05:46] LABS: BASOPHILS % (AUTO) 1 % (0-1); EOSINOPHILS % (AUTO) 1 % (1-7); LYMPHOCYTES % (AUTO) 47 % (22-44); MEAN CORPUSCULAR HEMOGLOBIN 30.9 pg (27.0-34.8); MEAN CORPUSCULAR HGB CONC 32.3 g/dL (32.4-35.8); MEAN PLATELET VOLUME 7.7 fL (7.4-10.4); MONOCYTES % (AUTO) 9 % (2-9); NEUTROPHILS % (AUTO) 43 % (42-75); PLATELET COUNT 224 x10^3/uL (130-400); RED BLOOD COUNT 2.91 x10^6/uL (3.82-5.3); RED CELL DISTRIBUTION WIDTH 16.3 % (9.6-15.2)
[2020-02-05 06:00] LABS: CHLORIDE 113 mmol/L (98-107)
[2020-02-05 06:04] LABS: ANION GAP 5 mmol/L (5-15); CALCIUM 8.3 mg/dL (8.5-10.1)
[2020-02-05 06:14] LABS: MD SCAN
[2020-02-05] MEDS: INSULIN LISPRO 100 UNITS/ML, PEN SQ-INSULIN SCH ×4 (07:00→22:16)
[2020-02-05 07:26] VITALS: BP 114/79
[2020-02-05] MEDS: SODIUM CHLORIDE FLUSH 10ML SYR IVF SCH ×3 (08:46→21:00)
[2020-02-05] MEDS: PANTOPRAZOLE 40 MG IV IVPush SCH (08:46)
[2020-02-05] MEDS: APIXABAN 5 MG TABLET PO SCH ×2 (08:46→22:16)
[2020-02-05] MEDS: INSULIN GLARGINE 100 UNITS/ML, PEN SQ-INSULIN SCH ×2 (08:47→22:17)
[2020-02-05 14:30] VITALS: BP 127/89
[2020-02-05] MEDS: LEVOFLOXACIN 750 MG TABLET PO SCH (16:31)
[2020-02-05 19:56] VITALS: BP 144/96
[2020-02-05] MEDS ORDERED: SODIUM CHLORIDE 0.9%, 500ML IVBOLUS ONE (22:00)
[2020-02-06 01:40] VITALS: BP 118/82
[2020-02-06 04:26] LABS: ANION GAP 5 mmol/L (5-15); CHLORIDE 107 mmol/L (98-107); CREATININE 0.81 mg/dL (0.55-1.02)
[2020-02-06] MEDS ORDERED: PANTOPRAZOLE 40MG TABLET PO SCH (06:00)
[2020-02-06] MEDS: INSULIN LISPRO 100 UNITS/ML, PEN SQ-INSULIN SCH ×3 (07:00→16:13)
[2020-02-06 07:52] VITALS: BP 101/59
[2020-02-06] MEDS ORDERED: INSULIN GLARGINE 100 UNITS/ML, PEN SQ-INSULIN SCH ×3 (09:00→21:00)
[2020-02-06] MEDS: APIXABAN 5 MG TABLET PO SCH (09:14)
[2020-02-06] MEDS: SODIUM CHLORIDE FLUSH 10ML SYR IVF SCH (09:17)
[2020-02-06 13:27] VITALS: BP 119/79
[2020-02-06] MEDS ORDERED: INSU100I13 SQ-INSULIN (14:08)
[2020-02-06] MEDS ORDERED: FLUCONAZOLE 100 MG TABLET PO ONE (14:30)
[2020-02-06] MEDS: LEVOFLOXACIN 750 MG TABLET PO SCH (16:14)
== END 2020-02-06 16:33 | disposition home or self-care (01) | DRG 637 ==
LOC: ED 20:18 → EDIP 20:45 → 4NE 02-03 15:42 → DCLOUNGE 02-06 16:29
PROVIDERS: ADMIT Internal Medicine; ATTEND Family Medicine
PROC: 02HV33Z Insertion of Infusion Device into Superior Vena Cava, Percutaneous Approach (ICD-10-PCS; principal; 2020-02-01)
PROC: B548ZZA Ultrasonography of Superior Vena Cava, Guidance (ICD-10-PCS; 2020-02-01)
DX: E10.10 Type 1 diabetes mellitus with ketoacidosis without coma (principal); G93.41 Metabolic encephalopathy; J18.9 Pneumonia, unspecified organism; N17.0 Acute kidney failure with tubular necrosis; E87.0 Hyperosmolality and hypernatremia; D69.6 Thrombocytopenia, unspecified; E10.43 Type 1 diabetes mellitus with diabetic autonomic (poly)neuropathy; E10.649 Type 1 diabetes mellitus with hypoglycemia without coma; E86.0 Dehydration; E87.5 Hyperkalemia; F12.10 Cannabis abuse, uncomplicated; Y95 Nosocomial condition; I10 Essential (primary) hypertension; K31.84 Gastroparesis; K82.8 Other specified diseases of gallbladder; Z72.0 Tobacco use; Z79.01 Long term (current) use of anticoagulants; Z79.4 Long term (current) use of insulin; Z83.3 Family history of diabetes mellitus; Z86.718 Personal history of other venous thrombosis and embolism; Z91.14 Patient's other noncompliance with medication regimen; Z88.8 Allergy status to other drugs, medicaments and biological substances; Z91.040 Latex allergy status
CPT/HCPCS: 36415; 36600; 71045; 80048; 80053; 81001; 82010; 82533; 82803; 82947; 82962; 83036; 83605; 83690; 83735; 83930; 84100; 84443; 85025; 87040; 87086; 93005; 96361; 96374; 96375; 96376; 99291; G0378; J1644; J1815; J2543; J3480; J7070; C9113; J7030; J7040; J7050; J7120

== ENCOUNTER 2020-02-09 11:54 | Inpatient (IN) | payer MEDICAID ==
[~2020-02-09] VITALS: Ht 172.7 cm; Wt 67.8 kg
[2020-02-09] MEDS: PROPOFOL 100 ML IV PRN ×2 (12:30→21:13)
[2020-02-09] MEDS ORDERED: SODIUM CHLORIDE 0.9% 1,000ML IVBOLUS ONE ×2 (12:30→13:30)
--- NOTE | 2020-02-09 12:30 | NUR ---
BIB [facility] AO O RESPONSE TO PAINFUL STIMULI ONLY CORE TEMP 94.8 KNOWN DIABETIC FSBS READ HIGH ON METER ON ARRIVAL PT PLACED ON FULL MONITORING INTUBATED ON ARRIVAL WITH RSI RESP TO THE BS TUBE 8.0 22 AT THE LIPS IO PLACED IN THE L TIBIA ERP PLACED CENTRAL LINE IN THE L IJ
[2020-02-09] MEDS ORDERED: PLEASE ENTER ALLERGIES MC SCH (13:00)
[2020-02-09] MEDS ORDERED: ETOMIDATE 20 MG/10 ML IV ONE (13:00)
[2020-02-09] MEDS ORDERED: VECURONIUM 10 MG IVPush ONE (13:00)
[2020-02-09] MEDS ORDERED: SUCCINYLCHOLINE 20 MG/ML, 10ML IVPush ONE (13:00)
[2020-02-09 13:09] LABS: MEAN CORPUSCULAR HEMOGLOBIN 30.1 pg (27.0-34.8); MEAN PLATELET VOLUME 8.7 fL (7.4-10.4); PLATELET COUNT 702 x10^3/uL (130-400); RED BLOOD COUNT 2.95 x10^6/uL (3.82-5.3)
[2020-02-09 13:10] LABS: ALANINE AMINOTRANSFERASE 68 U/L (12-78); ANION GAP 34 mmol/L (5-15); CALCIUM 9.3 mg/dL (8.5-10.1); CHLORIDE 98 mmol/L (98-107); CREATININE 2.76 mg/dL (0.55-1.02)
[2020-02-09 13:16] LABS: ALKALINE PHOSPHATASE 270 U/L (45-117); BILIRUBIN,TOTAL 0.4 mg/dL (0.2-1.0); TOTAL PROTEIN 6.9 g/dL (6.4-8.2)
[2020-02-09 13:24] LABS: ACETONE, SERUM Large (80mg/dL) (Negative)
--- NOTE | 2020-02-09 13:24 | NUR ---
REVIEWED VITALS W ERP FLUIDS BEING WARMED AND WARMING BLANKET IN PLACE
[2020-02-09 13:25] LABS: MEAN CORPUSCULAR HGB CONC 23.8 g/dL (32.4-35.8)
[2020-02-09 13:27] LABS: MD YES
--- NOTE | 2020-02-09 13:27 | NUR ---
PER CELESTINO W SAVANNAH PT TO HAVE 3 LITERS BEFORE ANY PRESSOR
[2020-02-09 13:28] LABS: ANISOCYTOSIS 1+; BAND#(MANUAL) 0.51 x10^3/uL; BANDS%(MANUAL) 4 % (0-7); BASOS#(MANUAL) 0.26 x10^3/uL (0-0.1); BASOS% (MANUAL) 2 % (0-1); EOS#(MANUAL) 0.13 x10^3/uL (0.0-0.4); EOS% (MANUAL) 1 % (1-7); LYMPH#(MANUAL) 3.71 x10^3/uL (1-3.4); LYMPHS% (MANUAL) 29 % (22-44); MONOS#(MANUAL) 1.02 x10^3/uL (0.3-2.7); MONOS% (MANUAL) 8 % (2-9); SEG#(MANUAL) 7.17 x10^3/uL (1.8-6.8); SEGS% (MANUAL) 56 % (42-75)
[2020-02-09 13:29] LABS: POLYCHROMASIA 1+
[2020-02-09 13:30] LABS: <PLATELET ESTIMATE> INCREASED; <PLT MORPHOLOGY> NORMAL PLT MORPH; ECHINOCYTES 1+; OVALOCYTES 1+; TEAR DROPS 1+
[2020-02-09] MEDS ORDERED: SODIUM BICARBONATE 1 MEQ/ML, 50ML VIAL IVPush ONE ×2 (13:30)
[2020-02-09] MEDS ORDERED: SODIUM BICARBONATE 1 MEQ/ML, 50ML VIAL ONE (13:34)
--- NOTE | 2020-02-09 13:46 | NUR ---
DR NUÑEZ TO THE BS HE NOTES LIMITED PUPIL REACTION TO LIGHT WILL ORDER A CT
[2020-02-09] MEDS ORDERED: REGULAR INSULIN 100 UNITS in SODIUM CHLORIDE 0.9% 99 ML IV PRN (14:00)
[2020-02-09] MEDS ORDERED: AMPICILLIN/SULBACTAM 1,500 MG in SODIUM CHLORIDE 0.9% 50 ML IV SCH (14:00)
[2020-02-09] MEDS ORDERED: BISACODYL 10 MG SUPP PR PRN (14:00)
[2020-02-09] MEDS ORDERED: ACETAMINOPHEN 325 MG TABLET PO PRN (14:00)
[2020-02-09] MEDS ORDERED: OXYcodone IR 5MG TABLET PO PRN (14:00)
[2020-02-09] MEDS ORDERED: ONDANSETRON 2MG/ML, 2ML IV PRN (14:00)
[2020-02-09] MEDS ORDERED: DOCUSATE 100 MG CAPSULE PO PRN (14:00)
[2020-02-09] MEDS ORDERED: MORPHINE SULFATE 4 MG/ML, 1ML IVPush PRN (14:00)
[2020-02-09] MEDS ORDERED: POLYETHYLENE GLYCOL 17 GM PACKET PO PRN (14:00)
[2020-02-09] MEDS: SODIUM CHLORIDE 0.9% 1,000 ML IV SCH ×2 (14:00→17:55)
[2020-02-09] MEDS: NOREPINEPHRINE 8 MG in SODIUM CHLORIDE 0.9% 242 ML IV PRN ×2 (14:23→21:58)
[2020-02-09 15:08] LABS: INTERNATIONAL NORMALIZED RATIO 1.02 (0.93-1.1); PROTHROMBIN TIME 10.8 Seconds (9.6-11.5)
[2020-02-09 16:03] LABS: FREE T4 (FREE THYROXINE) 0.76 ng/dL (0.76-1.46); TROPONIN I < 0.015 ng/mL (0.000-0.045)
--- NOTE | 2020-02-09 16:17 | NUR ---
PT RETURNED TO ED VIA GURNEY FROM CT. VSS
[2020-02-09 16:27] LABS: MICROSCOPIC INDICATED
[2020-02-09] MEDS ORDERED: PHARMACY MAY ADJ FOR RENAL FX MC SCH (16:30)
[2020-02-09] MEDS ORDERED: PROPOFOL 100 ML IV PRN (16:30)
[2020-02-09] MEDS ORDERED: LIDOCAINE-MPF 1%, 2ML ENDO PRN (16:30)
[2020-02-09] MEDS ORDERED: FENTANYL PF 100 MCG/2ML IVPush PRN (16:30)
--- NOTE | 2020-02-09 16:31 | NUR ---
POC READS HIGH STAT LAB BLOOD GLUCOSE ORDERED
[2020-02-09 16:37] LABS: AMPHETAMINE SCREEN, URINE Negative (Negative); BARBITURATE SCREEN, URINE Negative (Negative); BENZODIAZEPINE SCREEN, URINE Negative (Negative); CANNABINOID SCREEN, URINE Negative (Negative); COCAINE SCREEN, URINE Negative (Negative); METHADONE SCREEN, URINE Negative (Negative); OPIATE SCREEN, URINE Negative (Negative)
[2020-02-09] MEDS ORDERED: HEPARIN 5,000 UNITS/ML, 1ML ONE (16:55)
[2020-02-09] MEDS: HEPARIN 5,000 UNITS/ML, 1ML SQ SCH ×2 (16:56→22:55)
[2020-02-09] MEDS ORDERED: SUCCINYLCHOLINE 20 MG/ML, 10ML ONE (18:23)
[2020-02-09] MEDS ORDERED: VECURONIUM 10 MG ONE (18:23)
[2020-02-09] MEDS ORDERED: ETOMIDATE 20 MG/10 ML ONE (18:23)
[2020-02-09] MEDS ORDERED: PROPOFOL 10 MG/ML, 100ML IV ONE (18:23)
[2020-02-09 18:35] LABS: ANION GAP 31 mmol/L (5-15); CALCIUM 8.1 mg/dL (8.5-10.1); CHLORIDE 110 mmol/L (98-107); CREATININE 2.65 mg/dL (0.55-1.02)
[2020-02-09 18:39] LABS: TROPONIN I < 0.015 ng/mL (0.000-0.045)
[2020-02-09] MEDS: D5%-0.45NACL+KCL 20MEQ 1,000 ML IV SCH (21:00)
[2020-02-09] MEDS: FAMOTIDINE 20 MG/2 ML IVPush SCH (21:12)
[2020-02-09 22:19] LABS: ANION GAP 23 mmol/L (5-15); CALCIUM 8.2 mg/dL (8.5-10.1); CHLORIDE 117 mmol/L (98-107); CREATININE 2.57 mg/dL (0.55-1.02)
[2020-02-10] MEDS: AMPICILLIN/SULBACTAM 1,500 MG in SODIUM CHLORIDE 0.9% 50 ML IV SCH ×3 (01:24→16:36)
[2020-02-10] MEDS: PROPOFOL 100 ML IV PRN (01:25)
[2020-02-10] MEDS: D5%-0.45NACL+KCL 20MEQ 1,000 ML IV SCH (02:12)
[2020-02-10 02:28] LABS: ANION GAP 13 mmol/L (5-15); CALCIUM 7.9 mg/dL (8.5-10.1); CHLORIDE 124 mmol/L (98-107); CREATININE 2.47 mg/dL (0.55-1.02)
[2020-02-10 03:44] LABS: ANION GAP 13 mmol/L (5-15); CALCIUM 7.8 mg/dL (8.5-10.1); CHLORIDE 122 mmol/L (98-107)
[2020-02-10 04:00] VITALS: BP 112/70
[2020-02-10] MEDS ORDERED: POTASSIUM CHLORIDE 20 MEQ in DEXTROSE 5% 1,000 ML IV SCH (04:00)
[2020-02-10 06:10] LABS: BASOPHILS % (AUTO) 0 % (0-1); EOSINOPHILS % (AUTO) 0 % (1-7); LYMPHOCYTES % (AUTO) 22 % (22-44); MEAN CORPUSCULAR HEMOGLOBIN 30.2 pg (27.0-34.8); MEAN CORPUSCULAR HGB CONC 31.7 g/dL (32.4-35.8); MEAN PLATELET VOLUME 7.2 fL (7.4-10.4); MONOCYTES % (AUTO) 9 % (2-9); NEUTROPHILS % (AUTO) 69 % (42-75); PLATELET COUNT 333 x10^3/uL (130-400); RED BLOOD COUNT 2.57 x10^6/uL (3.82-5.3); RED CELL DISTRIBUTION WIDTH 15.9 % (9.6-15.2)
[2020-02-10 06:16] LABS: ANION GAP 8 mmol/L (5-15); CALCIUM 8.1 mg/dL (8.5-10.1); CHLORIDE 122 mmol/L (98-107); CREATININE 2.17 mg/dL (0.55-1.02)
[2020-02-10 06:18] LABS: MD NO
[2020-02-10] MEDS: HEPARIN 5,000 UNITS/ML, 1ML SQ SCH ×3 (06:54→23:10)
[2020-02-10] MEDS: INSULIN GLARGINE 100 UNITS/ML, PEN SQ-INSULIN SCH ×2 (08:37→21:11)
[2020-02-10] MEDS: POTASSIUM CHLORIDE 10% 40 MEQ/30 ML UDC PO SCH ×2 (08:37→21:00)
[2020-02-10] MEDS: INSULIN LISPRO 100 UNITS/ML, PEN SQ-INSULIN SCH ×3 (11:07→21:11)
[2020-02-10] MEDS ORDERED: SODIUM CHLORIDE 0.45% 500 ML IV SCH (14:00)
[2020-02-10 19:22] VITALS: BP 107/69
[2020-02-10] MEDS: FAMOTIDINE 20 MG/2 ML IVPush SCH (21:00)
[2020-02-11] VITALS (8 sets, daily range): BP systolic 101–125; BP diastolic 64–89
[2020-02-11] MEDS: AMPICILLIN/SULBACTAM 1,500 MG in SODIUM CHLORIDE 0.9% 50 ML IV SCH ×3 (01:35→17:48)
[2020-02-11 05:15] LABS: BASOPHILS % (AUTO) 1 % (0-1); EOSINOPHILS % (AUTO) 1 % (1-7); LYMPHOCYTES % (AUTO) 48 % (22-44); MEAN CORPUSCULAR HEMOGLOBIN 30.3 pg (27.0-34.8); MEAN CORPUSCULAR HGB CONC 31.7 g/dL (32.4-35.8); MEAN PLATELET VOLUME 6.8 fL (7.4-10.4); MONOCYTES % (AUTO) 7 % (2-9); NEUTROPHILS % (AUTO) 44 % (42-75); PLATELET COUNT 227 x10^3/uL (130-400); RED BLOOD COUNT 2.21 x10^6/uL (3.82-5.3); RED CELL DISTRIBUTION WIDTH 15.8 % (9.6-15.2)
[2020-02-11 05:27] LABS: MD NO
[2020-02-11 05:30] LABS: ANION GAP 7 mmol/L (5-15); CALCIUM 7.7 mg/dL (8.5-10.1); CHLORIDE 109 mmol/L (98-107); CREATININE 1.34 mg/dL (0.55-1.02)
[2020-02-11] MEDS: HEPARIN 5,000 UNITS/ML, 1ML SQ SCH (08:28)
[2020-02-11] MEDS: INSULIN LISPRO 100 UNITS/ML, PEN SQ-INSULIN SCH ×4 (08:29→21:56)
[2020-02-11] MEDS: INSULIN GLARGINE 100 UNITS/ML, PEN SQ-INSULIN SCH ×2 (08:29→21:57)
[2020-02-11] MEDS: LACTATED RINGERS 1,000 ML IV SCH (16:57)
[2020-02-11] MEDS: APIXABAN 5 MG TABLET PO SCH (21:50)
[2020-02-11] MEDS: FAMOTIDINE 20 MG/2 ML IVPush SCH (23:23)
[2020-02-12 02:00] VITALS: BP 117/78
[2020-02-12] MEDS: AMPICILLIN/SULBACTAM 1,500 MG in SODIUM CHLORIDE 0.9% 50 ML IV SCH ×4 (02:15→20:22)
[2020-02-12] MEDS: LACTATED RINGERS 1,000 ML IV SCH ×2 (02:15→09:32)
[2020-02-12] MEDS: INSULIN LISPRO 100 UNITS/ML, PEN SQ-INSULIN SCH ×4 (07:00→20:23)
[2020-02-12 07:11] LABS: BASOPHILS % (AUTO) 1 % (0-1); EOSINOPHILS % (AUTO) 1 % (1-7); LYMPHOCYTES % (AUTO) 41 % (22-44); MEAN CORPUSCULAR HEMOGLOBIN 30.5 pg (27.0-34.8); MEAN CORPUSCULAR HGB CONC 32.2 g/dL (32.4-35.8); MONOCYTES % (AUTO) 9 % (2-9); NEUTROPHILS % (AUTO) 48 % (42-75); PLATELET COUNT 201 x10^3/uL (130-400); RED BLOOD COUNT 2.79 x10^6/uL (3.82-5.3); RED CELL DISTRIBUTION WIDTH 16.1 % (9.6-15.2)
[2020-02-12 07:14] LABS: MD NO
[2020-02-12 07:20] LABS: ALANINE AMINOTRANSFERASE 69 U/L (12-78); ALBUMIN 2.4 g/dL (3.4-5.0); CALCIUM 8.5 mg/dL (8.5-10.1); CREATININE 0.89 mg/dL (0.55-1.02)
[2020-02-12 07:22] LABS: ALKALINE PHOSPHATASE 218 U/L (45-117); BILIRUBIN,TOTAL 0.4 mg/dL (0.2-1.0); TOTAL PROTEIN 5.7 g/dL (6.4-8.2)
[2020-02-12 07:34] LABS: ANION GAP 5 mmol/L (5-15); CHLORIDE 113 mmol/L (98-107)
[2020-02-12 09:29] VITALS: BP 133/91
[2020-02-12] MEDS: APIXABAN 5 MG TABLET PO SCH ×2 (09:31→20:23)
[2020-02-12] MEDS: INSULIN GLARGINE 100 UNITS/ML, PEN SQ-INSULIN SCH ×2 (09:31→20:24)
[2020-02-12] MEDS: FAMOTIDINE 20 MG/2 ML IVPush SCH ×2 (09:31→20:23)
[2020-02-12 14:14] VITALS: BP 123/85
[2020-02-12 19:46] VITALS: BP 127/87
[2020-02-13 01:14] VITALS: BP 137/95
[2020-02-13] MEDS: AMPICILLIN/SULBACTAM 1,500 MG in SODIUM CHLORIDE 0.9% 50 ML IV SCH ×2 (01:31→07:51)
[2020-02-13 05:27] LABS: BASOPHILS % (AUTO) 2 % (0-1); EOSINOPHILS % (AUTO) 2 % (1-7); LYMPHOCYTES % (AUTO) 52 % (22-44); MEAN CORPUSCULAR HEMOGLOBIN 30.8 pg (27.0-34.8); MEAN CORPUSCULAR HGB CONC 32.9 g/dL (32.4-35.8); MEAN PLATELET VOLUME 7.1 fL (7.4-10.4); MONOCYTES % (AUTO) 9 % (2-9); NEUTROPHILS % (AUTO) 36 % (42-75); PLATELET COUNT 178 x10^3/uL (130-400); RED BLOOD COUNT 2.96 x10^6/uL (3.82-5.3); RED CELL DISTRIBUTION WIDTH 15.9 % (9.6-15.2)
[2020-02-13 06:19] LABS: MD SCAN
[2020-02-13 06:44] LABS: ANION GAP 7 mmol/L (5-15); CALCIUM 8.6 mg/dL (8.5-10.1); CHLORIDE 113 mmol/L (98-107); CREATININE 0.81 mg/dL (0.55-1.02)
[2020-02-13] MEDS: INSULIN LISPRO 100 UNITS/ML, PEN SQ-INSULIN SCH ×2 (07:00→11:29)
[2020-02-13] MEDS: FAMOTIDINE 20 MG/2 ML IVPush SCH (07:51)
[2020-02-13] MEDS: INSULIN GLARGINE 100 UNITS/ML, PEN SQ-INSULIN SCH (07:51)
[2020-02-13] MEDS: APIXABAN 5 MG TABLET PO SCH (07:51)
[2020-02-13 09:00] VITALS: BP 139/97
[2020-02-13] MEDS ORDERED: AMOX1TAB12 PO (11:24)
== END 2020-02-13 14:15 | disposition home or self-care (01) | DRG 637 ==
LOC: MERGE 11:54 → EDBD 11:54 → ED 13:39 → EDIP 13:47 → CCU 17:33 → 3N 02-10 17:00 → 3WST 02-11 13:12 → DCLOUNGE 02-13 14:09
PROVIDERS: ADMIT Internal Medicine; ATTEND Family Medicine
PROC: 02H633Z Insertion of Infusion Device into Right Atrium, Percutaneous Approach (ICD-10-PCS; principal; 2020-02-09)
PROC: 5A1945Z Respiratory Ventilation, 24-96 Consecutive Hours (ICD-10-PCS; 2020-02-09)
PROC: 0BH17EZ Insertion of Endotracheal Airway into Trachea, Via Natural or Artificial Opening (ICD-10-PCS; 2020-02-09)
PROC: 0T9B70Z Drainage of Bladder with Drainage Device, Via Natural or Artificial Opening (ICD-10-PCS; 2020-02-09)
PROC: 30233N1 Transfusion of Nonautologous Red Blood Cells into Peripheral Vein, Percutaneous Approach (ICD-10-PCS; 2020-02-11)
DX: E10.11 Type 1 diabetes mellitus with ketoacidosis with coma (principal); J96.01 Acute respiratory failure with hypoxia; J69.0 Pneumonitis due to inhalation of food and vomit; G93.41 Metabolic encephalopathy; N17.0 Acute kidney failure with tubular necrosis; Z99.11 Dependence on respirator [ventilator] status; E87.0 Hyperosmolality and hypernatremia; E78.5 Hyperlipidemia, unspecified; E55.9 Vitamin D deficiency, unspecified; E10.43 Type 1 diabetes mellitus with diabetic autonomic (poly)neuropathy; K31.84 Gastroparesis; F12.90 Cannabis use, unspecified, uncomplicated; D50.9 Iron deficiency anemia, unspecified; I10 Essential (primary) hypertension; D75.89 Other specified diseases of blood and blood-forming organs; Z88.8 Allergy status to other drugs, medicaments and biological substances; Z87.891 Personal history of nicotine dependence; Z91.14 Patient's other noncompliance with medication regimen; Z86.718 Personal history of other venous thrombosis and embolism; Z82.0 Family history of epilepsy and other diseases of the nervous system; Z83.3 Family history of diabetes mellitus; Z79.4 Long term (current) use of insulin; Z79.899 Other long term (current) drug therapy; Z91.040 Latex allergy status; Z91.018 Allergy to other foods
CPT/HCPCS: 36415; 36600; 70450; 71045; 80048; 80053; 80307; 81001; 82010; 82533; 82550; 82803; 82947; 82962; 83605; 83690; 83735; 83930; 84100; 84439; 84443; 84478; 84481; 84484; 85014; 85018; 85025; 85610; 86850; 86900; 86923; 87040; 87070; 87081; 87205; 93005; 94002; 94003; 96361; 96374; 96375; 96376; 99291; G0378; J1644; J2704; J3480; J7070; J0295; J0330; J1815; J7030; J7050; J7120; P9016

== ENCOUNTER 2020-02-21 15:50 | Inpatient (IN) | payer MEDICAID ==
[~2020-02-21] VITALS: Ht 165.1 cm; Wt 63.6 kg
--- NOTE | 2020-02-21 15:57 | NUR ---
GLUCOMETER READING OF HIGH IN TRIAGE.
--- NOTE | 2020-02-21 16:17 | NUR ---
PT SITTING ON GURNEY TALKING/TEXTING ON PHONE. TASK RN AT BEDSIDE FOR US PLACED PIV.
[2020-02-21] MEDS ORDERED: SODIUM CHLORIDE 0.9% 1,000 ML IV ONE ×2 (16:30→18:30)
[2020-02-21] MEDS ORDERED: SODIUM CHLORIDE FLUSH 10ML SYR IVF ONE (16:30)
[2020-02-21] MEDS ORDERED: SODIUM CHLORIDE 0.9% 1,000ML IVBOLUS ONE (16:30)
[2020-02-21 16:58] LABS: BASOPHILS % (AUTO) 2 % (0-1); EOSINOPHILS % (AUTO) 0 % (1-7); LYMPHOCYTES % (AUTO) 26 % (22-44); MEAN CORPUSCULAR HEMOGLOBIN 30.4 pg (27.0-34.8); MEAN CORPUSCULAR HGB CONC 30.1 g/dL (32.4-35.8); MONOCYTES % (AUTO) 8 % (2-9); NEUTROPHILS % (AUTO) 65 % (42-75); PLATELET COUNT 521 x10^3/uL (130-400); RED BLOOD COUNT 3.97 x10^6/uL (3.82-5.3); RED CELL DISTRIBUTION WIDTH 17.8 % (9.6-15.2)
[2020-02-21 17:02] LABS: MD NO
[2020-02-21 17:07] LABS: ALANINE AMINOTRANSFERASE 171 U/L (12-78); ALBUMIN 3.7 g/dL (3.4-5.0); ANION GAP 16 mmol/L (5-15); CALCIUM 10.4 mg/dL (8.5-10.1); CHLORIDE 93 mmol/L (98-107)
[2020-02-21 17:12] LABS: ALKALINE PHOSPHATASE 413 U/L (45-117); BILIRUBIN,TOTAL 0.7 mg/dL (0.2-1.0); TOTAL PROTEIN 8.5 g/dL (6.4-8.2)
[2020-02-21 17:27] LABS: ACETONE, SERUM Large (80mg/dL) (Negative)
[2020-02-21] MEDS ORDERED: ACETAMINOPHEN 325 MG TABLET PO ONE (17:30)
[2020-02-21] MEDS ORDERED: ACETAMINOPHEN 325 MG TABLET ONE (17:32)
--- NOTE | 2020-02-21 17:36 | NUR ---
PT MED PER MAR. PT SITTING ON RELWOOD. NADN. PT POSITIONED FOR COMFORT.
--- NOTE | 2020-02-21 17:48 | NUR ---
PER DR WITT. START PT ON INSULIN DRIP 6UNITS/HR. NO TITRATING AT THIS TIME. PT TO BE ADMIT.
--- NOTE | 2020-02-21 17:50 | NUR ---
REQUESTED INSULIN FROM PHARMACY.
[2020-02-21] MEDS ORDERED: REGULAR INSULIN 100 UNITS in SODIUM CHLORIDE 0.9% 99 ML IV PRN ×2 (18:00→20:47)
--- NOTE | 2020-02-21 18:26 | NUR ---
INSULIN DRIP STARTED WITH SECOND RN VERIFICATION. 2ND LITER NS INFUSING. PT SITTING ON GURNEY EATING ICE CHIPS, OK PER MD. AWAITING ICU ADMIT BED.
[2020-02-21] MEDS ORDERED: SODIUM CHLORIDE FLUSH 10ML SYR IVF PRN (18:30)
--- NOTE | 2020-02-21 19:08 | NUR ---
FSBG READ HI. STAT LAB ORDERED FOR GLUCOSE LEVEL TO VERIFY FOR INSULIN DRIP.
--- NOTE | 2020-02-21 19:59 | NUR ---
BLOOD GLUCOSE CRITICAL LEVEL 737. INSULIN DRIP DECREASED BY 2. INSULIN DRIP 4UNITS/HR PER PROTOCOL, VERIFIED BY SECOND RN. PER HOSPITALIST, AT NEXT FINGERSTICK IF IT READS HI, NO NEED TO ORDER STAT BLOOD GLUCOSE LAB. LABS ARE SCHEDULED FOR EVERY 4HRS NOW. PT TRANSFERRED TO HOSPITAL BED, PT IS CCU HOLD IN ER. PT AMBULATED TO RESTROOM WITH STEADY GAIT TO PROVIDE URINE SAMPLE. UA COLLECTED AND SENT TO LAB.
[2020-02-21 20:12] LABS: MICROSCOPIC NOT IND
[2020-02-21] MEDS ORDERED: ONDANSETRON ODT 4 MG PO PRN (20:30)
[2020-02-21] MEDS ORDERED: ONDANSETRON 2MG/ML, 2ML IV PRN (20:30)
[2020-02-21 20:37] LABS: ANION GAP 20 mmol/L (5-15); CALCIUM 9.5 mg/dL (8.5-10.1); CHLORIDE 102 mmol/L (98-107)
[2020-02-21 20:39] LABS: CREATININE 1.42 mg/dL (0.55-1.02)
[2020-02-21] MEDS ORDERED: LABETALOL 5MG/ML, 20ML IVPush PRN (21:00)
--- NOTE | 2020-02-21 21:00 | NUR ---
BLOOD GLUCOSE 553. INSULIN DRIP DECREASED TO 2UNITS/HR, VERIFIED BY SECOND RN. PT RESTING COMFORTABLY ON HOSPITAL BED. PO H2O PROVIDED.
[2020-02-21] MEDS: SODIUM CHLORIDE 0.9% 1,000 ML IV SCH (21:09)
[2020-02-21] MEDS ORDERED: APIXABAN 5 MG TABLET ONE (21:11)
[2020-02-21] MEDS: APIXABAN 5 MG TABLET PO SCH (21:12)
[2020-02-21] MEDS ORDERED: ACETAMINOPHEN 325 MG TABLET PO PRN (21:30)
--- NOTE | 2020-02-21 22:01 | NUR ---
FSBG 286. PER SHAYY SEYMOUR, DECREASE INSULIN DRIP TO 1UNIT/HR AND RECHECK FSBG IN 1 HR. INSULIN DRIP VERIFIED WITH SECOND RN.
--- NOTE | 2020-02-21 22:06 | NUR ---
RECEIVED PHONE ORDER FROM SHAYY SEYMOUR TO START D5 1/2NS WITH POTASSIUM NOW. REQUESTED FLUIDS FROM PHARMACY.
--- NOTE | 2020-02-21 22:55 | NUR ---
PIV INFILTRATED. TASK RN AT BEDSIDE FOR US PIV PLACEMENT
[2020-02-21] MEDS ORDERED: LIDOCAINE-MPF 1%, 5ML ONE (23:16)
--- NOTE | 2020-02-21 23:35 | NUR ---
PIV ACCESS ESTABLISHED USING IO GUN. IO FLUSHES AND DRAWS BACK WITH BLOOD RETURN. REPORT OF PT TO ELLE WILBURN. ALL QUESTIONS ANSWERED.
--- NOTE | 2020-02-22 00:03 | NUR ---
ROBBIE CHIEF DEPUTY SHERIFF, AT BS TO ASSIST WITH TRASNPORT OF PT FROM ED TO CCU.
[2020-02-22 00:11] LABS: ANION GAP 15 mmol/L (5-15); CALCIUM 8.2 mg/dL (8.5-10.1); CHLORIDE 96 mmol/L (98-107); CREATININE 0.94 mg/dL (0.55-1.02)
[2020-02-22 00:13] VITALS: BP 90/48
[2020-02-22] MEDS: D5%-0.45NACL+KCL 20MEQ 1,000 ML IV SCH ×2 (00:21→03:11)
[2020-02-22] MEDS: SODIUM CHLORIDE 0.9% 1,000 ML IV SCH ×3 (00:23→20:00)
[2020-02-22] MEDS ORDERED: D5%-0.9% NACL+KCL 20MEQ 1,000 ML IV SCH (04:00)
[2020-02-22 04:01] LABS: BASOPHILS % (AUTO) 3 % (0-1); EOSINOPHILS % (AUTO) 1 % (1-7); LYMPHOCYTES % (AUTO) 35 % (22-44); MEAN CORPUSCULAR HEMOGLOBIN 31.2 pg (27.0-34.8); MEAN CORPUSCULAR HGB CONC 32.9 g/dL (32.4-35.8); MEAN PLATELET VOLUME 8.4 fL (7.4-10.4); MONOCYTES % (AUTO) 8 % (2-9); NEUTROPHILS % (AUTO) 54 % (42-75); PLATELET COUNT 464 x10^3/uL (130-400); RED BLOOD COUNT 2.96 x10^6/uL (3.82-5.3); RED CELL DISTRIBUTION WIDTH 16.5 % (9.6-15.2)
[2020-02-22 04:02] LABS: MD NO
[2020-02-22 04:11] LABS: ANION GAP 16 mmol/L (5-15); CALCIUM 7.8 mg/dL (8.5-10.1); CHLORIDE 100 mmol/L (98-107)
[2020-02-22 04:12] LABS: CREATININE 1.07 mg/dL (0.55-1.02)
[2020-02-22] MEDS: PANTOPRAZOLE 40MG TABLET PO SCH (06:24)
[2020-02-22] MEDS: INSULIN LISPRO 100 UNITS/ML, PEN SQ-INSULIN SCH ×4 (07:17→23:07)
[2020-02-22] MEDS: APIXABAN 5 MG TABLET PO SCH ×2 (08:51→23:06)
[2020-02-22] MEDS: INSULIN GLARGINE 100 UNITS/ML, PEN SQ-INSULIN SCH ×2 (08:53→23:08)
[2020-02-22] MEDS ORDERED: INSULIN LISPRO 100 UNIT/ML, 3ML VIAL SQ-INSULIN ONE (11:30)
[2020-02-22 13:54] VITALS: BP 127/76
[2020-02-23 01:53] VITALS: BP 111/72
[2020-02-23] MEDS: SODIUM CHLORIDE 0.9% 1,000 ML IV SCH (06:00)
[2020-02-23] MEDS: PANTOPRAZOLE 40MG TABLET PO SCH (06:12)
[2020-02-23 06:21] LABS: BASOPHILS % (AUTO) 2 % (0-1); EOSINOPHILS % (AUTO) 1 % (1-7); LYMPHOCYTES % (AUTO) 41 % (22-44); MEAN CORPUSCULAR HEMOGLOBIN 31.3 pg (27.0-34.8); MEAN PLATELET VOLUME 7.9 fL (7.4-10.4); MONOCYTES % (AUTO) 9 % (2-9); NEUTROPHILS % (AUTO) 47 % (42-75); PLATELET COUNT 372 x10^3/uL (130-400); RED BLOOD COUNT 2.95 x10^6/uL (3.82-5.3); RED CELL DISTRIBUTION WIDTH 16.9 % (9.6-15.2)
[2020-02-23 06:28] LABS: MD NO
[2020-02-23 06:38] VITALS: BP 112/78
[2020-02-23 06:38] LABS: ANION GAP 11 mmol/L (5-15); CALCIUM 7.8 mg/dL (8.5-10.1); CHLORIDE 109 mmol/L (98-107)
[2020-02-23 06:40] LABS: CREATININE 0.85 mg/dL (0.55-1.02)
[2020-02-23] MEDS: APIXABAN 5 MG TABLET PO SCH (08:15)
[2020-02-23] MEDS: INSULIN GLARGINE 100 UNITS/ML, PEN SQ-INSULIN SCH (08:24)
[2020-02-23] MEDS: INSULIN LISPRO 100 UNITS/ML, PEN SQ-INSULIN SCH ×2 (08:24→11:41)
[2020-02-23 08:44] LABS: ALANINE AMINOTRANSFERASE 105 U/L (12-78); ALBUMIN 2.7 g/dL (3.4-5.0)
[2020-02-23 08:46] LABS: ALKALINE PHOSPHATASE 230 U/L (45-117); BILIRUBIN,TOTAL 0.2 mg/dL (0.2-1.0); TOTAL PROTEIN 6.1 g/dL (6.4-8.2)
[2020-02-23 08:52] LABS: BILIRUBIN, DIRECT < 0.1 mg/dL (0.1-0.2); BILIRUBIN,INDIRECT 0.1 mg/dL (0.0-2.0)
[2020-02-23 13:55] VITALS: BP 111/74
== END 2020-02-23 15:35 | disposition left against medical advice (07) | DRG 637 ==
LOC: ED 16:51 → EDIP 18:37 → CCU 23:55 → 4NE 02-22 13:36
PROVIDERS: ADMIT Family Medicine; ATTEND Internal Medicine
DX: E10.10 Type 1 diabetes mellitus with ketoacidosis without coma (principal); N17.0 Acute kidney failure with tubular necrosis; D68.69 Other thrombophilia; E87.1 Hypo-osmolality and hyponatremia; E10.43 Type 1 diabetes mellitus with diabetic autonomic (poly)neuropathy; E55.9 Vitamin D deficiency, unspecified; D50.9 Iron deficiency anemia, unspecified; D75.89 Other specified diseases of blood and blood-forming organs; E78.5 Hyperlipidemia, unspecified; E10.21 Type 1 diabetes mellitus with diabetic nephropathy; Z53.29 Procedure and treatment not carried out because of patient's decision for other reasons; F12.90 Cannabis use, unspecified, uncomplicated; I10 Essential (primary) hypertension; K31.84 Gastroparesis; Z86.718 Personal history of other venous thrombosis and embolism; Z91.19 Patient's noncompliance with other medical treatment and regimen; Z91.040 Latex allergy status
CPT/HCPCS: 36415; 71045; 80048; 80053; 80076; 81003; 82010; 82800; 82947; 82962; 83036; 83690; 83735; 84100; 84703; 85025; 87040; 87081; 93005; G0378; J1815; J3480; J7030

== ENCOUNTER 2020-02-29 17:42 | Emergency (ER) | payer MEDICAID ==
[~2020-02-29] VITALS: Ht 165.1 cm; Wt 54.5 kg
[2020-02-29 18:02] VITALS: BP 109/67
[2020-02-29 18:48] LABS: FIO2 ROOM AIR %
[2020-02-29 18:49] LABS: BASOPHILS % (AUTO) 1 % (0-1); EOSINOPHILS % (AUTO) 0 % (1-7); LYMPHOCYTES % (AUTO) 24 % (22-44); MEAN CORPUSCULAR HEMOGLOBIN 30.3 pg (27.0-34.8); MEAN CORPUSCULAR HGB CONC 32.2 g/dL (32.4-35.8); MEAN PLATELET VOLUME 7.5 fL (7.4-10.4); MONOCYTES % (AUTO) 9 % (2-9); NEUTROPHILS % (AUTO) 66 % (42-75); PLATELET COUNT 535 x10^3/uL (130-400); RED BLOOD COUNT 4.31 x10^6/uL (3.82-5.3); RED CELL DISTRIBUTION WIDTH 16.1 % (9.6-15.2)
[2020-02-29 18:51] LABS: MD NO
[2020-02-29 19:01] LABS: ALANINE AMINOTRANSFERASE 90 U/L (12-78); ALBUMIN 3.5 g/dL (3.4-5.0); ANION GAP 19 mmol/L (5-15); CALCIUM 9.4 mg/dL (8.5-10.1); CHLORIDE 99 mmol/L (98-107); CREATININE 1.36 mg/dL (0.55-1.02)
[2020-02-29 19:03] LABS: ALKALINE PHOSPHATASE 287 U/L (45-117); BILIRUBIN,TOTAL 0.6 mg/dL (0.2-1.0); TOTAL PROTEIN 8.5 g/dL (6.4-8.2)
[2020-02-29 19:17] LABS: ACETONE, SERUM Large (80mg/dL) (Negative)
--- NOTE | 2020-02-29 20:22 | NUR ---
NO ANSWER WHEN CALLED FOR REPEAT VITALS @ 2021.
--- NOTE | 2020-02-29 21:42 | NUR ---
PT CALEED FOR VITALS. NA X 2
--- NOTE | 2020-02-29 22:39 | NUR ---
NO ANSWER WHEN CALLED FOR REPEAT VITALS @ 6784.
== END 2020-02-29 22:42 | disposition left against medical advice (07) ==
LOC: ED 18:00
DX: E11.65 Type 2 diabetes mellitus with hyperglycemia (principal); R10.84 Generalized abdominal pain; R11.2 Nausea with vomiting, unspecified
CPT/HCPCS: 36415; 80053; 82010; 82803; 83690; 85025; 99283

== ENCOUNTER 2020-03-13 15:15 | Inpatient (IN) | payer MEDICAID ==
[~2020-03-13] VITALS: Ht 162.6 cm; Wt 68.0 kg
[2020-03-13] MEDS ORDERED: LIDOCAINE-MPF 1%, 5ML ONE (15:19)
--- NOTE | 2020-03-13 15:28 | NUR ---
PT BIB EMS FOR LABORED BREATHING AND "HIGH" BLOOD GLUCOSE LEVEL. PT ARRIVED, COMBATIVE, [place] BREATHING. EKG COMPLETE. FINGER STICK BLOOD GLUCOSE -"HIGH". IO ACCESS ESTABLISHED. PT CONNECTED TO ALL MONITORING EQUIPMENT. AWAITING ORDERS AT THIS TIME
[2020-03-13] MEDS ORDERED: SODIUM CHLORIDE 0.9% 1,000 ML IV ONE (15:30)
[2020-03-13] MEDS ORDERED: SODIUM CHLORIDE FLUSH 10ML SYR IVF ONE (15:30)
[2020-03-13] MEDS ORDERED: SODIUM CHLORIDE 0.9% 1,000ML IVBOLUS ONE ×3 (16:00→19:30)
[2020-03-13 16:02] LABS: PH, VENOUS 6.782 pH (7.320-7.420)
[2020-03-13 16:12] LABS: ALBUMIN 3.1 g/dL (3.4-5.0); ANION GAP 32 mmol/L (5-15); CALCIUM 9.5 mg/dL (8.5-10.1); CHLORIDE 94 mmol/L (98-107)
[2020-03-13 16:18] LABS: ALANINE AMINOTRANSFERASE 115 U/L (12-78); ALKALINE PHOSPHATASE 494 U/L (45-117); BILIRUBIN,TOTAL 0.5 mg/dL (0.2-1.0); CREATININE 1.26 mg/dL (0.55-1.02); TOTAL PROTEIN 7.4 g/dL (6.4-8.2)
--- NOTE | 2020-03-13 16:33 | NUR ---
REVIEW OF CHART, ASSUME CARE OF PT AT THIS TIME. CRITICAL LABS REPORTED, GLUCOSE 1008, CO2 2, K+ 6.3. REDRAW REQUESTED FOR POSSIBLE HEMOLYSIS AND ABNORMAL K+ FOR THIS PT. PER SNOW ALMEIDA, IO INFILTRATED. US GUIDED IV PLACED BY SNOW ALMEIDA. ATTEMPT FOR 2ND IV VIA US. PT DROWSY, CONFUSED. VS UPDATED IN COMPUTER.
[2020-03-13 16:53] LABS: ACETONE, SERUM Large (80mg/dL) (Negative)
[2020-03-13] MEDS ORDERED: SODIUM CHLORIDE FLUSH 10ML SYR IVF PRN (17:00)
--- NOTE | 2020-03-13 17:00 | NUR ---
2ND IV STARTED VIA US GUIDED. MULTIPLE CRITICAL LABS REPORTED. PER LAB, 2ND DRAW HEMOLYZED. ERP NOTIFIED, PER ERP REDRAW FOR ELEVATED POTASSIUM.
[2020-03-13] MEDS: D5%-0.45NACL+KCL 20MEQ 1,000 ML IV SCH ×2 (17:30→18:00)
[2020-03-13] MEDS ORDERED: GLUCAGON 1 MG IM PRN (17:30)
[2020-03-13] MEDS ORDERED: DEXTROSE 4 GM TAB.CHEW PO PRN (17:30)
--- NOTE | 2020-03-13 17:30 | NUR ---
PT INCONTINENT OF URINE, BEDDING AND GOWN CHANGED. LAB CONTINUES TO ATTEMPT DRAW.
[2020-03-13 17:40] LABS: MEAN CORPUSCULAR HEMOGLOBIN 30.6 pg (27.0-34.8); PLATELET COUNT 499 x10^3/uL (130-400); RED BLOOD COUNT 3.44 x10^6/uL (3.82-5.3); RED CELL DISTRIBUTION WIDTH 19.4 % (9.6-15.2)
[2020-03-13 17:46] LABS: MD YES; MEAN CORPUSCULAR HGB CONC 25.9 g/dL (32.4-35.8)
[2020-03-13 17:53] LABS: ANION GAP 30 mmol/L (5-15); CALCIUM 9.1 mg/dL (8.5-10.1); CHLORIDE 96 mmol/L (98-107); CREATININE 1.29 mg/dL (0.55-1.02)
--- NOTE | 2020-03-13 18:00 | NUR ---
MULTIPLE ATTEMPTS FOR ABG AND ADDITIONAL LABS. 2ND LITER NS BOLUS INFUSING. MED REQUEST TO PHARMACY FOR INSULIN.
--- NOTE | 2020-03-13 18:15 | NUR ---
REPORT TO TAMIKA CROUCH READY FOR TRANSPORT.
[2020-03-13 18:17] LABS: BAND#(MANUAL) 1.34 x10^3/uL; BANDS%(MANUAL) 8 % (0-7); BASOS#(MANUAL) 0.34 x10^3/uL (0-0.1); BASOS% (MANUAL) 2 % (0-1); EOS#(MANUAL) 0.17 x10^3/uL (0.0-0.4); EOS% (MANUAL) 1 % (1-7); LYMPHS% (MANUAL) 25 % (22-44); METAMYELOCYTES% (MANUAL) 3 % (0-1); MONOS#(MANUAL) 0.84 x10^3/uL (0.3-2.7); MONOS% (MANUAL) 5 % (2-9); MYELOCYTES# (MANUAL) 0.34 x10^3/uL (0-0); MYELOCYTES% (MANUAL) 2 % (0-0); SEG#(MANUAL) 9.07 x10^3/uL (1.8-6.8); SEGS% (MANUAL) 54 % (42-75)
[2020-03-13 18:18] LABS: POLYCHROMASIA 1+
[2020-03-13 18:20] LABS: <PLATELET ESTIMATE> INCREASED; LARGE PLATELETS 1+
[2020-03-13] MEDS: REGULAR INSULIN 100 UNITS in SODIUM CHLORIDE 0.9% 99 ML IV PRN (18:31)
[2020-03-13] MEDS: SODIUM CHLORIDE 0.9% 1,000 ML IV SCH ×2 (18:32→22:15)
[2020-03-13 19:02] VITALS: BP 75/29
[2020-03-13] MEDS: SODIUM CHLORIDE FLUSH 10ML SYR IVF SCH (20:06)
[2020-03-13] MEDS: ENOXAPARIN 40 MG/0.4 ML SQ SCH (20:06)
[2020-03-13 20:38] LABS: CALCIUM 8.3 mg/dL (8.5-10.1); CHLORIDE 100 mmol/L (98-107); CREATININE 1.36 mg/dL (0.55-1.02)
[2020-03-13 20:51] LABS: ANION GAP 32 mmol/L (5-15)
[2020-03-13 22:23] LABS: MICROSCOPIC AUTO
[2020-03-14] MEDS: REGULAR INSULIN 100 UNITS in SODIUM CHLORIDE 0.9% 99 ML IV PRN ×2 (01:16→06:00)
[2020-03-14 01:20] LABS: ANION GAP 25 mmol/L (5-15); CHLORIDE 110 mmol/L (98-107); CREATININE 1.27 mg/dL (0.55-1.02)
[2020-03-14] MEDS: SODIUM CHLORIDE 0.9% 1,000 ML IV SCH ×2 (03:28→08:49)
[2020-03-14] MEDS ORDERED: SODIUM CHLORIDE 0.9% 1,000ML IVBOLUS ONE (04:30)
[2020-03-14] MEDS ORDERED: ONDANSETRON 2MG/ML, 2ML ONE (04:48)
[2020-03-14] MEDS: ONDANSETRON ODT 4 MG PO PRN ×2 (04:51→23:55)
[2020-03-14 05:18] LABS: ALBUMIN 2.6 g/dL (3.4-5.0); ANION GAP 21 mmol/L (5-15); CALCIUM 7.9 mg/dL (8.5-10.1); CHLORIDE 119 mmol/L (98-107)
[2020-03-14 05:22] LABS: ALANINE AMINOTRANSFERASE 90 U/L (12-78); ALKALINE PHOSPHATASE 328 U/L (45-117); BILIRUBIN,TOTAL 0.4 mg/dL (0.2-1.0); TOTAL PROTEIN 5.8 g/dL (6.4-8.2)
[2020-03-14 05:34] LABS: MEAN CORPUSCULAR HEMOGLOBIN 30.6 pg (27.0-34.8); MEAN CORPUSCULAR HGB CONC 30.8 g/dL (32.4-35.8); PLATELET COUNT 304 x10^3/uL (130-400); RED BLOOD COUNT 2.55 x10^6/uL (3.82-5.3); RED CELL DISTRIBUTION WIDTH 17.6 % (9.6-15.2)
[2020-03-14 07:08] LABS: MD YES
[2020-03-14 07:11] LABS: <PLATELET ESTIMATE> ADEQUATE; <PLT MORPHOLOGY> NORMAL PLT MORPH; ANISOCYTOSIS 1+; BAND#(MANUAL) 0.13 x10^3/uL; BANDS%(MANUAL) 1 % (0-7); BASOS#(MANUAL) 0.13 x10^3/uL (0-0.1); BASOS% (MANUAL) 1 % (0-1); LYMPH#(MANUAL) 1.38 x10^3/uL (1-3.4); LYMPHS% (MANUAL) 11 % (22-44); MONOS% (MANUAL) 4 % (2-9); POLYCHROMASIA 1+; SEG#(MANUAL) 10.38 x10^3/uL (1.8-6.8); SEGS% (MANUAL) 83 % (42-75)
[2020-03-14] MEDS: SODIUM CHLORIDE FLUSH 10ML SYR IVF SCH ×2 (07:56→20:25)
[2020-03-14] MEDS: D5%-0.45NACL+KCL 20MEQ 1,000 ML IV SCH ×3 (07:56→23:57)
[2020-03-14] MEDS: DEXTROSE 50%, 50ML SYRINGE IVPush PRN ×3 (08:49→14:29)
[2020-03-14 09:40] LABS: ANION GAP 9 mmol/L (5-15); CALCIUM 7.6 mg/dL (8.5-10.1); CHLORIDE 123 mmol/L (98-107)
[2020-03-14] MEDS ORDERED: VANCOMYCIN PER PHARMACY MC PRN (13:00)
[2020-03-14] MEDS ORDERED: VANCOMYCIN PMX 1GM/200ML 200 ML IV ONE (13:00)
[2020-03-14] MEDS ORDERED: PHARMACOKINETIC CONSULTATION MC ONE (14:30)
[2020-03-14] MEDS ORDERED: PHARMACOKINETIC MONITORING MC PRN (14:30)
[2020-03-14] MEDS ORDERED: VANCOMYCIN 1,500 MG in SODIUM CHLORIDE 0.9% 250 ML IV ONE (14:30)
[2020-03-14] MEDS: PIPERACILLIN/TAZO/PMX 3.375GM 50 ML IV SCH ×2 (14:52→20:25)
[2020-03-14] MEDS: INSULIN LISPRO 100 UNITS/ML, PEN SQ-INSULIN SCH ×2 (16:00→20:26)
[2020-03-14] MEDS: ENOXAPARIN 40 MG/0.4 ML SQ SCH (17:30)
[2020-03-14] MEDS: VANCOMYCIN 1,200 MG in SODIUM CHLORIDE 0.9% 250 ML IV SCH (23:55)
[2020-03-15] MEDS: PIPERACILLIN/TAZO/PMX 3.375GM 50 ML IV SCH ×4 (03:13→21:12)
[2020-03-15] MEDS: INSULIN LISPRO 100 UNITS/ML, PEN SQ-INSULIN SCH ×4 (04:25→21:14)
[2020-03-15 04:37] LABS: BASOPHILS % (AUTO) 0 % (0-1); EOSINOPHILS % (AUTO) 0 % (1-7); LYMPHOCYTES % (AUTO) 17 % (22-44); MEAN CORPUSCULAR HEMOGLOBIN 30.7 pg (27.0-34.8); MEAN CORPUSCULAR HGB CONC 32.4 g/dL (32.4-35.8); MEAN PLATELET VOLUME 7.7 fL (7.4-10.4); MONOCYTES % (AUTO) 5 % (2-9); NEUTROPHILS % (AUTO) 78 % (42-75); PLATELET COUNT 230 x10^3/uL (130-400); RED BLOOD COUNT 2.39 x10^6/uL (3.82-5.3); RED CELL DISTRIBUTION WIDTH 18.3 % (9.6-15.2)
[2020-03-15 04:48] LABS: ALANINE AMINOTRANSFERASE 62 U/L (12-78); ALBUMIN 2.1 g/dL (3.4-5.0); ANION GAP 8 mmol/L (5-15); CALCIUM 7.5 mg/dL (8.5-10.1); CHLORIDE 110 mmol/L (98-107); CREATININE 1.04 mg/dL (0.55-1.02)
[2020-03-15 04:50] LABS: ALKALINE PHOSPHATASE 244 U/L (45-117); BILIRUBIN,TOTAL 0.2 mg/dL (0.2-1.0); TOTAL PROTEIN 5.1 g/dL (6.4-8.2)
[2020-03-15 05:17] LABS: MD NO
[2020-03-15] MEDS: INSULIN GLARGINE 100 UNITS/ML, PEN SQ-INSULIN SCH ×2 (09:45→21:13)
[2020-03-15] MEDS: SODIUM CHLORIDE FLUSH 10ML SYR IVF SCH ×2 (09:45→21:12)
[2020-03-15] MEDS: VANCOMYCIN 1,200 MG in SODIUM CHLORIDE 0.9% 250 ML IV SCH (12:46)
[2020-03-15] MEDS: ENOXAPARIN 40 MG/0.4 ML SQ SCH (17:26)
[2020-03-15 20:08] VITALS: BP 146/71
[2020-03-15] MEDS ORDERED: INSULIN LISPRO 100 UNITS/ML, PEN SQ-INSULIN ONE (21:30)
[2020-03-15] MEDS ORDERED: ACETAMINOPHEN 325 MG TABLET PO PRN (23:30)
[2020-03-16] MEDS: VANCOMYCIN 1,200 MG in SODIUM CHLORIDE 0.9% 250 ML IV SCH (00:10)
[2020-03-16] MEDS: PIPERACILLIN/TAZO/PMX 3.375GM 50 ML IV SCH ×2 (02:53→09:06)
[2020-03-16 02:58] VITALS: BP 119/84
[2020-03-16 05:32] LABS: BASOPHILS % (AUTO) 1 % (0-1); EOSINOPHILS % (AUTO) 1 % (1-7); LYMPHOCYTES % (AUTO) 34 % (22-44); MEAN CORPUSCULAR HEMOGLOBIN 30.9 pg (27.0-34.8); MEAN CORPUSCULAR HGB CONC 32.7 g/dL (32.4-35.8); MEAN PLATELET VOLUME 8.1 fL (7.4-10.4); MONOCYTES % (AUTO) 5 % (2-9); NEUTROPHILS % (AUTO) 59 % (42-75); PLATELET COUNT 242 x10^3/uL (130-400); RED BLOOD COUNT 2.59 x10^6/uL (3.82-5.3); RED CELL DISTRIBUTION WIDTH 18.5 % (9.6-15.2)
[2020-03-16 05:34] LABS: MD NO
[2020-03-16 05:40] LABS: ALANINE AMINOTRANSFERASE 76 U/L (12-78); ALBUMIN 2.4 g/dL (3.4-5.0); ANION GAP 5 mmol/L (5-15); CALCIUM 8.7 mg/dL (8.5-10.1); CHLORIDE 115 mmol/L (98-107); CREATININE 0.82 mg/dL (0.55-1.02)
[2020-03-16 05:42] LABS: ALKALINE PHOSPHATASE 270 U/L (45-117); BILIRUBIN,TOTAL 0.5 mg/dL (0.2-1.0); TOTAL PROTEIN 5.8 g/dL (6.4-8.2)
[2020-03-16] MEDS: INSULIN LISPRO 100 UNITS/ML, PEN SQ-INSULIN SCH ×4 (07:00→23:02)
[2020-03-16 07:39] VITALS: BP 124/88
[2020-03-16] MEDS: SODIUM CHLORIDE FLUSH 10ML SYR IVF SCH ×2 (09:00→23:04)
[2020-03-16] MEDS: INSULIN GLARGINE 100 UNITS/ML, PEN SQ-INSULIN SCH ×2 (09:07→23:03)
[2020-03-16] MEDS: CEFTRIAXONE PMX 2GM/50ML 50 ML IVPB SCH (11:39)
[2020-03-16] MEDS: AZITHROMYCIN 500 MG in SODIUM CHLORIDE 0.9% 250 ML IV SCH (12:34)
[2020-03-16] MEDS: ONDANSETRON ODT 4 MG PO PRN (13:08)
[2020-03-16 13:34] VITALS: BP 114/78
[2020-03-16] MEDS: ENOXAPARIN 40 MG/0.4 ML SQ SCH (16:40)
[2020-03-16 18:56] VITALS: BP 118/85
[2020-03-17 02:10] VITALS: BP 134/89
[2020-03-17 06:11] LABS: BASOPHILS % (AUTO) 1 % (0-1); EOSINOPHILS % (AUTO) 1 % (1-7); LYMPHOCYTES % (AUTO) 39 % (22-44); MEAN CORPUSCULAR HEMOGLOBIN 31.4 pg (27.0-34.8); MEAN CORPUSCULAR HGB CONC 32.3 g/dL (32.4-35.8); MEAN PLATELET VOLUME 8.8 fL (7.4-10.4); MONOCYTES % (AUTO) 7 % (2-9); NEUTROPHILS % (AUTO) 52 % (42-75); PLATELET COUNT 214 x10^3/uL (130-400); RED BLOOD COUNT 2.56 x10^6/uL (3.82-5.3); RED CELL DISTRIBUTION WIDTH 19.9 % (9.6-15.2)
[2020-03-17 06:17] LABS: ALBUMIN 2.5 g/dL (3.4-5.0); ANION GAP 4 mmol/L (5-15); CALCIUM 8.7 mg/dL (8.5-10.1); CHLORIDE 107 mmol/L (98-107)
[2020-03-17 06:20] LABS: ALANINE AMINOTRANSFERASE 75 U/L (12-78); ALKALINE PHOSPHATASE 262 U/L (45-117); BILIRUBIN,TOTAL 0.8 mg/dL (0.2-1.0); CREATININE 0.84 mg/dL (0.55-1.02)
[2020-03-17 06:35] LABS: MD SCAN
[2020-03-17 07:21] VITALS: BP 130/95
[2020-03-17] MEDS: INSULIN LISPRO 100 UNITS/ML, PEN SQ-INSULIN SCH ×2 (07:59→11:33)
[2020-03-17] MEDS: INSULIN GLARGINE 100 UNITS/ML, PEN SQ-INSULIN SCH (08:00)
[2020-03-17] MEDS: SODIUM CHLORIDE FLUSH 10ML SYR IVF SCH (08:00)
[2020-03-17] MEDS ORDERED: CEFD300C37 PO (09:53)
[2020-03-17] MEDS: CEFTRIAXONE PMX 2GM/50ML 50 ML IVPB SCH (10:54)
[2020-03-17] MEDS: AZITHROMYCIN 500 MG in SODIUM CHLORIDE 0.9% 250 ML IV SCH (12:02)
[2020-03-17 12:53] VITALS: BP 131/91
== END 2020-03-17 13:06 | disposition home or self-care (01) | DRG 871 ==
LOC: SUATTDRO 16:11 → ED 16:22 → EDIP 16:56 → CCU 18:25 → 4NE 03-15 13:54 → DCLOUNGE 03-17 12:59
PROVIDERS: ADMIT Internal Medicine; ATTEND Family Medicine
DX: A41.9 Sepsis, unspecified organism (principal); E10.10 Type 1 diabetes mellitus with ketoacidosis without coma; G93.41 Metabolic encephalopathy; J18.9 Pneumonia, unspecified organism; N17.0 Acute kidney failure with tubular necrosis; D68.69 Other thrombophilia; E87.1 Hypo-osmolality and hyponatremia; I82.401 Acute embolism and thrombosis of unspecified deep veins of right lower extremity; D50.9 Iron deficiency anemia, unspecified; D75.89 Other specified diseases of blood and blood-forming organs; E10.21 Type 1 diabetes mellitus with diabetic nephropathy; E10.43 Type 1 diabetes mellitus with diabetic autonomic (poly)neuropathy; E10.649 Type 1 diabetes mellitus with hypoglycemia without coma; E55.9 Vitamin D deficiency, unspecified; E78.5 Hyperlipidemia, unspecified; E87.6 Hypokalemia; E88.09 Other disorders of plasma-protein metabolism, not elsewhere classified; I10 Essential (primary) hypertension; K31.84 Gastroparesis; K82.8 Other specified diseases of gallbladder; Z79.4 Long term (current) use of insulin; Z91.19 Patient's noncompliance with other medical treatment and regimen; Z91.040 Latex allergy status; Z91.14 Patient's other noncompliance with medication regimen
CPT/HCPCS: 36415; 36600; 71045; 80048; 80053; 80202; 81001; 82010; 82803; 82947; 82962; 83036; 83690; 83735; 83930; 84100; 84703; 85025; 87040; 87081; 93005; 96360; 96361; 99291; G0378; J0456; J0696; J1650; J1815; J2543; J3370; Q0162; J3480; J7030; J7050

== ENCOUNTER 2020-03-19 13:26 | Inpatient (IN) | payer MEDICAID ==
[~2020-03-19] VITALS: Ht 172.7 cm; Wt 57.0 kg
[~2020-03-19 13:26] MED LIST changes: +CEFD300C37 PO
[2020-03-19] MEDS ORDERED: SODIUM CHLORIDE 0.9% 1,000ML IVBOLUS ONE ×2 (13:30→14:00)
[2020-03-19] MEDS ORDERED: LIDOCAINE-MPF 2% ,5ML ONE (13:32)
[2020-03-19] MEDS ORDERED: LIDOCAINE-MPF 1%, 5ML ONE (13:32)
--- NOTE | 2020-03-19 13:50 | NUR ---
EDMD LAW NOTIFIED OF CRITICAL VENOUS PH 6.816, VBG BICARB 1.5 ., TOTAL CO2 6.756
[2020-03-19 14:09] LABS: PH, VENOUS 6.816 pH (7.320-7.420)
[2020-03-19 14:18] LABS: MEAN CORPUSCULAR HEMOGLOBIN 30.3 pg (27.0-34.8); MEAN PLATELET VOLUME 8.9 fL (7.4-10.4); PLATELET COUNT 721 x10^3/uL (130-400); RED BLOOD COUNT 2.93 x10^6/uL (3.82-5.3); RED CELL DISTRIBUTION WIDTH 21.8 % (9.6-15.2)
[2020-03-19 14:23] LABS: ALANINE AMINOTRANSFERASE 85 U/L (12-78); ALBUMIN 2.8 g/dL (3.4-5.0); ANION GAP 35 mmol/L (5-15); CALCIUM 9.1 mg/dL (8.5-10.1); CHLORIDE 97 mmol/L (98-107); CREATININE 1.35 mg/dL (0.55-1.02)
[2020-03-19 14:26] LABS: ALKALINE PHOSPHATASE 353 U/L (45-117); BILIRUBIN,TOTAL 0.5 mg/dL (0.2-1.0); TOTAL PROTEIN 6.5 g/dL (6.4-8.2)
[2020-03-19] MEDS: NOREPINEPHRINE 8 MG in SODIUM CHLORIDE 0.9% 242 ML IV PRN ×2 (14:30→17:36)
[2020-03-19] MEDS ORDERED: DOCUSATE 100 MG CAPSULE PO PRN (15:00)
[2020-03-19] MEDS ORDERED: ONDANSETRON 2MG/ML, 2ML IV PRN (15:00)
[2020-03-19] MEDS ORDERED: ACETAMINOPHEN 325 MG TABLET PO PRN (15:00)
[2020-03-19] MEDS: SODIUM CHLORIDE 0.9% 1,000 ML IV SCH ×2 (15:00→20:14)
[2020-03-19] MEDS: D5%-0.45NACL+KCL 20MEQ 1,000 ML IV SCH (15:00)
[2020-03-19] MEDS ORDERED: POLYETHYLENE GLYCOL 17 GM PACKET PO PRN (15:00)
[2020-03-19 15:05] LABS: MD YES; MEAN CORPUSCULAR HGB CONC 24.9 g/dL (32.4-35.8)
--- NOTE | 2020-03-19 15:16 | NUR ---
PT HYPERTENSIVE NOW. LEVOPHED STOPPED.
[2020-03-19 15:19] LABS: BAND#(MANUAL) 0.34 x10^3/uL; BANDS%(MANUAL) 2 % (0-7); BASOS#(MANUAL) 0.17 x10^3/uL (0-0.1); BASOS% (MANUAL) 1 % (0-1); LYMPH#(MANUAL) 4.54 x10^3/uL (1-3.4); LYMPHS% (MANUAL) 27 % (22-44); METAMYELOCYTES# (MANUAL) 0.67 x10^3/uL (0-0); METAMYELOCYTES% (MANUAL) 4 % (0-1); MONOS#(MANUAL) 0.84 x10^3/uL (0.3-2.7); MONOS% (MANUAL) 5 % (2-9); SEG#(MANUAL) 10.08 x10^3/uL (1.8-6.8); SEGS% (MANUAL) 60 % (42-75)
[2020-03-19 15:20] LABS: <PLATELET ESTIMATE> INCREASED
[2020-03-19 15:21] LABS: <PLT MORPHOLOGY> NORMAL PLT MORPH; ANISOCYTOSIS 2+; HYPOCHROMIA 1+; POLYCHROMASIA 1+
[2020-03-19 15:22] LABS: CRENATED 1+; SCHISTOCYTES 1+; TOXIC GRAN 1+
[2020-03-19] MEDS ORDERED: ENOXAPARIN 40 MG/0.4 ML SQ SCH (16:00)
[2020-03-19] MEDS: REGULAR INSULIN 100 UNITS in SODIUM CHLORIDE 0.9% 99 ML IV PRN ×2 (16:08→21:48)
[2020-03-19] MEDS ORDERED: SODIUM BICARB 8.4%, 50ML SYRINGE IVPush ONE (16:30)
[2020-03-19 16:49] LABS: FIO2 ROOM AIR %
[2020-03-19 16:52] LABS: MICROSCOPIC NOT IND
[2020-03-19 18:27] LABS: FREE T4 (FREE THYROXINE) 0.92 ng/dL (0.76-1.46)
[2020-03-19 18:38] LABS: ANION GAP 29 mmol/L (5-15); CHLORIDE 109 mmol/L (98-107); CREATININE 1.32 mg/dL (0.55-1.02)
[2020-03-20] MEDS: D5%-0.45NACL+KCL 20MEQ 1,000 ML IV SCH (00:19)
[2020-03-20 00:48] LABS: ANION GAP 21 mmol/L (5-15); CALCIUM 7.5 mg/dL (8.5-10.1); CHLORIDE 111 mmol/L (98-107); CREATININE 1.03 mg/dL (0.55-1.02)
[2020-03-20] MEDS: OXYcodone IR 5MG TABLET PO PRN ×3 (01:34→16:20)
[2020-03-20 04:43] LABS: ANION GAP 13 mmol/L (5-15); CALCIUM 7.4 mg/dL (8.5-10.1); CHLORIDE 109 mmol/L (98-107); CREATININE 1.18 mg/dL (0.55-1.02)
[2020-03-20] MEDS: APIXABAN 5 MG TABLET PO SCH ×3 (08:37→21:23)
[2020-03-20] MEDS: INSULIN GLARGINE 100 UNITS/ML, PEN SQ-INSULIN SCH ×2 (09:21→21:31)
[2020-03-20] MEDS: INSULIN LISPRO 100 UNITS/ML, PEN SQ-INSULIN SCH ×3 (11:09→21:31)
[2020-03-20 12:37] VITALS: BP 103/70
[2020-03-20] MEDS: SODIUM CHLORIDE 0.9% 1,000 ML IV SCH (15:00)
[2020-03-20 20:00] VITALS: BP 107/71
[2020-03-21] MEDS: SODIUM CHLORIDE 0.9% 1,000 ML IV SCH (00:48)
[2020-03-21 01:39] VITALS: BP 110/75
[2020-03-21] MEDS: INSULIN LISPRO 100 UNITS/ML, PEN SQ-INSULIN SCH ×2 (07:00→11:12)
[2020-03-21 07:13] VITALS: BP 116/76
[2020-03-21 10:04] LABS: ANION GAP 8 mmol/L (5-15); CALCIUM 7.9 mg/dL (8.5-10.1); CHLORIDE 106 mmol/L (98-107); CREATININE 0.88 mg/dL (0.55-1.02)
[2020-03-21] MEDS: INSULIN GLARGINE 100 UNITS/ML, PEN SQ-INSULIN SCH (10:06)
[2020-03-21] MEDS: APIXABAN 5 MG TABLET PO SCH (10:06)
== END 2020-03-21 13:40 | disposition home or self-care (01) | DRG 637 ==
LOC: ED 13:58 → EDIP 14:02 → CCU 15:48 → 4NE 03-20 11:56 → DCLOUNGE 03-21 13:30
PROVIDERS: ADMIT Internal Medicine; ATTEND Internal Medicine
PROC: 0T9B70Z Drainage of Bladder with Drainage Device, Via Natural or Artificial Opening (ICD-10-PCS; principal; 2020-03-19)
PROC: 06HY33Z Insertion of Infusion Device into Lower Vein, Percutaneous Approach (ICD-10-PCS; 2020-03-19)
DX: E11.10 Type 2 diabetes mellitus with ketoacidosis without coma (principal); G93.41 Metabolic encephalopathy; E43 Unspecified severe protein-calorie malnutrition; J96.00 Acute respiratory failure, unspecified whether with hypoxia or hypercapnia; N17.0 Acute kidney failure with tubular necrosis; Z68.1 Body mass index [BMI] 19.9 or less, adult; I82.401 Acute embolism and thrombosis of unspecified deep veins of right lower extremity; Z99.11 Dependence on respirator [ventilator] status; D50.9 Iron deficiency anemia, unspecified; D72.828 Other elevated white blood cell count; D75.89 Other specified diseases of blood and blood-forming organs; E11.43 Type 2 diabetes mellitus with diabetic autonomic (poly)neuropathy; E55.9 Vitamin D deficiency, unspecified; E78.5 Hyperlipidemia, unspecified; E87.5 Hyperkalemia; F12.90 Cannabis use, unspecified, uncomplicated; I10 Essential (primary) hypertension; K31.84 Gastroparesis; K82.8 Other specified diseases of gallbladder; Z82.0 Family history of epilepsy and other diseases of the nervous system; Z83.3 Family history of diabetes mellitus; Z87.891 Personal history of nicotine dependence; Z91.19 Patient's noncompliance with other medical treatment and regimen; Z88.8 Allergy status to other drugs, medicaments and biological substances
CPT/HCPCS: 36415; 36600; 71045; 80048; 80053; 81003; 82800; 82803; 82947; 82962; 83605; 83690; 83735; 84100; 84439; 84443; 84481; 85025; 87040; 87081; 93005; G0378; J1650; J2405; J1815; J3480; J7030; J7050

== ENCOUNTER 2020-04-09 13:32 | Inpatient (IN) | payer MEDICAID ==
[~2020-04-09] VITALS: Ht 165.1 cm; Wt 63.9 kg
[2020-04-09] MEDS ORDERED: SODIUM CHLORIDE 0.9% 1,000ML IVBOLUS ONE ×3 (14:00→21:30)
--- NOTE | 2020-04-09 15:07 | NUR ---
technical services consultant: pt from lobby to room 21
[2020-04-09 15:09] LABS: PH, VENOUS 7.346 pH (7.320-7.420)
[2020-04-09 15:19] LABS: ALBUMIN 3.5 g/dL (3.4-5.0); ANION GAP 11 mmol/L (5-15); CHLORIDE 93 mmol/L (98-107)
--- NOTE | 2020-04-09 15:20 | NUR ---
UA SENT PLACED ON B2B SALES CONSULTANT
[2020-04-09 15:24] LABS: ALANINE AMINOTRANSFERASE 134 U/L (12-78); ALKALINE PHOSPHATASE 355 U/L (45-117); BILIRUBIN,TOTAL 0.5 mg/dL (0.2-1.0); CREATININE 1.06 mg/dL (0.55-1.02); TOTAL PROTEIN 7.7 g/dL (6.4-8.2)
[2020-04-09 15:29] LABS: BASOPHILS % (AUTO) 4 % (0-1); EOSINOPHILS % (AUTO) 1 % (1-7); LYMPHOCYTES % (AUTO) 20 % (22-44); MEAN CORPUSCULAR HEMOGLOBIN 31.4 pg (27.0-34.8); MEAN PLATELET VOLUME 8.6 fL (7.4-10.4); MONOCYTES % (AUTO) 4 % (2-9); NEUTROPHILS % (AUTO) 71 % (42-75); PLATELET COUNT 427 x10^3/uL (130-400); RED BLOOD COUNT 3.78 x10^6/uL (3.82-5.3); RED CELL DISTRIBUTION WIDTH 20.7 % (9.6-15.2)
--- NOTE | 2020-04-09 15:32 | NUR ---
PIV PLACED WITH ULTRASOUND-1L NS STARTED IMEDIATELY RECEIVED CALL FROM LAB FOR CRITICAL SERUM GLUCOSE 819-DR. ATKINS MADE AWARE-NO NEW ORDERS AT THIS TIME
[2020-04-09 15:50] LABS: MICROSCOPIC NOT IND
[2020-04-09 15:54] LABS: ACETONE, SERUM Moderate(40mg/dL) (Negative)
[2020-04-09] MEDS ORDERED: INSULIN REGULAR 100 UNITS/ML, 3ML VIAL IVPush ONE (16:00)
--- NOTE | 2020-04-09 16:04 | NUR ---
AFTER 1L NS: FSBS "HIGH" NO NAUSEA OR ABD PAIN REPORTED VSS
[2020-04-09] MEDS ORDERED: INSULIN SINGLE DOSE, ER ONE (16:12)
--- NOTE | 2020-04-09 16:21 | NUR ---
POC CLARIFIED WITH PROVIDER IDENTIFICATION CLERK HESISTANT TO ADMIN 25 UNITS OF GLARGINE INSULIN PATIENT TOOK 15 UNITS OF LANTUS AT 9AM THIS MORNING[address] DR. ATKINS FIR "DO IT SHE WILL BE FINE". ORTHOPEDIC SURGEON MADE AWARE. WILL CLOSELY MONITOR DR. SIU ALSO REPORTED PATIENT TO RECEIVE 3 LITERS OF IVF AND ALLOWED TO DRINK 2ND LITER OF NS WELL 10 UNITS OF REGULAR INSULIN ADINISTERED PER EMAR
[2020-04-09] MEDS ORDERED: CEFD300C37 PO (16:29)
[2020-04-09] MEDS ORDERED: AMOX1TAB12 PO (16:29)
[2020-04-09] MEDS ORDERED: INSULIN GLARGINE 100 UNITS/ML, PEN SQ-INSULIN ONE (16:30)
[2020-04-09 16:47] LABS: MD SCAN
[2020-04-09] MEDS: INSULIN LISPRO 100 UNITS/ML, PEN SQ-INSULIN SCH ×2 (17:00→21:00)
[2020-04-09] MEDS ORDERED: GUAIFENESIN/DM 200-20MG, 10ML UDC PO PRN (17:00)
[2020-04-09] MEDS ORDERED: ACETAMINOPHEN 325 MG TABLET PO PRN (17:00)
[2020-04-09] MEDS ORDERED: BUTALB/APAP/CAFFEINE 50MG/325MG/40MG PO PRN ×2 (17:00)
[2020-04-09] MEDS ORDERED: ONDANSETRON ODT 4 MG PO PRN (17:00)
[2020-04-09] MEDS ORDERED: ONDANSETRON 2MG/ML, 2ML IVPush PRN (17:00)
--- NOTE | 2020-04-09 17:10 | NUR ---
POST 2L NS: FSBS 598 EATING VERY LOW CALORIE DINNER DR. BRIONES AT BEDSIDE TO ADMIT
[2020-04-09 17:31] LABS: ANION GAP 13 mmol/L (5-15); CALCIUM 8.3 mg/dL (8.5-10.1); CHLORIDE 100 mmol/L (98-107); CREATININE 1.16 mg/dL (0.55-1.02)
--- NOTE | 2020-04-09 17:35 | NUR ---
3L NS STARTED PATIENT ATE ALL (100%) OF DINNER (CHICKEN, COOKED CARROTS) RECEIVED CALL FROM LAB FOR CRITICAL SERUM GLUCOSE OF 689 (DRAWN 30-45 MINUTES AGO)- DR. BRIONES AWARE
--- NOTE | 2020-04-09 17:43 | NUR ---
Michael cano in ED - 04/09/20 at 1748 by EDGARD INPATIENT RN UNAVAILABLE FOR REPORT- MESSAGE LEFT WITH DESK FOR HER TO CALL ME BACK PATIENT MEDICATED PER EMAR WITH 15 UNITS OF LANTUS
--- NOTE | 2020-04-09 17:43 | NUR ---
INPATIENT RN UNAVAILABLE FOR REPORT- MESSAGE LEFT WITH DESK FOR HER TO CALL ME BACK PATIENT MEDICATED PER EMAR WITH 15 UNITS OF LANTUS
[2020-04-09] MEDS: LACTATED RINGERS 1,000 ML IV SCH (18:27)
[2020-04-09 19:03] VITALS: BP 115/73
[2020-04-09 20:55] LABS: ANION GAP 11 mmol/L (5-15); CALCIUM 7.9 mg/dL (8.5-10.1); CHLORIDE 100 mmol/L (98-107); CREATININE 0.94 mg/dL (0.55-1.02)
[2020-04-09] MEDS ORDERED: INSULIN LISPRO 100 UNITS/ML, PEN SQ-INSULIN ONE (21:30)
[2020-04-09] MEDS: MELATONIN 5 MG TABLET PO SCH (21:33)
[2020-04-09] MEDS: AMOXICILLIN/CLAV 875-125MG TABLET PO SCH (21:33)
[2020-04-10 01:26] LABS: ANION GAP 9 mmol/L (5-15); CHLORIDE 107 mmol/L (98-107); CREATININE 0.75 mg/dL (0.55-1.02)
[2020-04-10 01:45] VITALS: BP 115/78
[2020-04-10] MEDS: LACTATED RINGERS 1,000 ML IV SCH (04:20)
[2020-04-10 06:05] LABS: ANION GAP 7 mmol/L (5-15); CALCIUM 8.3 mg/dL (8.5-10.1); CHLORIDE 112 mmol/L (98-107)
[2020-04-10 06:07] LABS: CREATININE 0.58 mg/dL (0.55-1.02)
[2020-04-10] MEDS: PANTOPRAZOLE 40MG TABLET PO SCH (06:18)
[2020-04-10 07:01] VITALS: BP 129/87
[2020-04-10] MEDS: INSULIN LISPRO 100 UNITS/ML, PEN SQ-INSULIN SCH ×4 (07:26→20:03)
[2020-04-10] MEDS ORDERED: INSULIN GLARGINE 100 UNITS/ML, PEN SQ-INSULIN SCH (08:00)
[2020-04-10] MEDS: SENNA/DOCUSATE TABLET PO SCH (08:10)
[2020-04-10] MEDS: AMOXICILLIN/CLAV 875-125MG TABLET PO SCH ×2 (08:10→20:03)
[2020-04-10 09:23] LABS: ANION GAP 10 mmol/L (5-15); CHLORIDE 109 mmol/L (98-107)
[2020-04-10 09:24] LABS: CREATININE 0.67 mg/dL (0.55-1.02)
[2020-04-10 12:47] VITALS: BP 128/86
[2020-04-10 12:50] LABS: CHLORIDE 108 mmol/L (98-107)
[2020-04-10 13:05] LABS: ANION GAP 12 mmol/L (5-15); CALCIUM 8.6 mg/dL (8.5-10.1); CREATININE 0.86 mg/dL (0.55-1.02)
[2020-04-10 19:02] VITALS: BP 127/84
[2020-04-10] MEDS: BACLOFEN 10 MG TABLET PO PRN (20:03)
[2020-04-10] MEDS: MELATONIN 5 MG TABLET PO SCH (20:03)
[2020-04-10] MEDS: INSULIN GLARGINE 100 UNITS/ML, PEN SQ-INSULIN SCH (20:04)
[2020-04-11 00:33] VITALS: BP 104/67
[2020-04-11] MEDS: PANTOPRAZOLE 40MG TABLET PO SCH (06:19)
[2020-04-11] MEDS: BACLOFEN 10 MG TABLET PO PRN ×2 (06:26→15:01)
[2020-04-11 07:15] VITALS: BP 117/80
[2020-04-11] MEDS: INSULIN LISPRO 100 UNITS/ML, PEN SQ-INSULIN SCH ×4 (08:15→20:56)
[2020-04-11] MEDS: SENNA/DOCUSATE TABLET PO SCH (08:16)
[2020-04-11] MEDS: AMOXICILLIN/CLAV 875-125MG TABLET PO SCH ×2 (08:46→20:56)
[2020-04-11] MEDS: INSULIN GLARGINE 100 UNITS/ML, PEN SQ-INSULIN SCH ×2 (08:47→21:00)
[2020-04-11 11:11] LABS: ANION GAP 13 mmol/L (5-15); CALCIUM 8.5 mg/dL (8.5-10.1); CHLORIDE 109 mmol/L (98-107); CREATININE 0.76 mg/dL (0.55-1.02)
[2020-04-11] MEDS: SODIUM BICARBONATE 8.4% 150 MEQ in SODIUM CHLORIDE 0.45% 1,000 ML IV SCH (13:57)
[2020-04-11 14:24] VITALS: BP 132/88
[2020-04-11 20:22] VITALS: BP 111/74
[2020-04-11] MEDS: MELATONIN 5 MG TABLET PO SCH (20:56)
[2020-04-12 01:35] VITALS: BP 124/76
[2020-04-12] MEDS: SODIUM BICARBONATE 8.4% 150 MEQ in SODIUM CHLORIDE 0.45% 1,000 ML IV SCH (05:15)
[2020-04-12] MEDS: PANTOPRAZOLE 40MG TABLET PO SCH (06:02)
[2020-04-12 06:03] LABS: BASOPHILS % (AUTO) 2 % (0-1); EOSINOPHILS % (AUTO) 1 % (1-7); LYMPHOCYTES % (AUTO) 34 % (22-44); MEAN CORPUSCULAR HEMOGLOBIN 32.1 pg (27.0-34.8); MEAN CORPUSCULAR HGB CONC 32.5 g/dL (32.4-35.8); MEAN PLATELET VOLUME 8.2 fL (7.4-10.4); MONOCYTES % (AUTO) 9 % (2-9); NEUTROPHILS % (AUTO) 54 % (42-75); PLATELET COUNT 306 x10^3/uL (130-400); RED BLOOD COUNT 3.31 x10^6/uL (3.82-5.3); RED CELL DISTRIBUTION WIDTH 20.4 % (9.6-15.2)
[2020-04-12 06:05] LABS: MD NO
[2020-04-12 06:10] LABS: ALBUMIN 2.9 g/dL (3.4-5.0); ANION GAP 9 mmol/L (5-15); CALCIUM 8.6 mg/dL (8.5-10.1); CHLORIDE 109 mmol/L (98-107)
[2020-04-12 07:48] VITALS: BP 132/68
[2020-04-12] MEDS: SENNA/DOCUSATE TABLET PO SCH (08:03)
[2020-04-12] MEDS: AMOXICILLIN/CLAV 875-125MG TABLET PO SCH (08:05)
[2020-04-12] MEDS: INSULIN GLARGINE 100 UNITS/ML, PEN SQ-INSULIN SCH (08:18)
[2020-04-12] MEDS: INSULIN LISPRO 100 UNITS/ML, PEN SQ-INSULIN SCH ×2 (08:18→11:00)
[2020-04-12 12:20] VITALS: BP 117/77
== END 2020-04-12 15:07 | disposition home or self-care (01) | DRG 638 ==
LOC: ED 16:18 → 3N 16:41 → DCLOUNGE 04-12 14:57
PROVIDERS: ADMIT Family Medicine; ATTEND Family Medicine
DX: E11.00 Type 2 diabetes mellitus with hyperosmolarity without nonketotic hyperglycemic-hyperosmolar coma (NKHHC) (principal); E46 Unspecified protein-calorie malnutrition; N17.9 Acute kidney failure, unspecified; Z99.11 Dependence on respirator [ventilator] status; E11.43 Type 2 diabetes mellitus with diabetic autonomic (poly)neuropathy; D75.89 Other specified diseases of blood and blood-forming organs; E78.5 Hyperlipidemia, unspecified; E86.0 Dehydration; I12.9 Hypertensive chronic kidney disease with stage 1 through stage 4 chronic kidney disease, or unspecified chronic kidney disease; K31.84 Gastroparesis; E11.22 Type 2 diabetes mellitus with diabetic chronic kidney disease; N18.9 Chronic kidney disease, unspecified; Z88.8 Allergy status to other drugs, medicaments and biological substances; Z91.040 Latex allergy status; Z79.4 Long term (current) use of insulin; Z72.0 Tobacco use; K82.9 Disease of gallbladder, unspecified; Z86.718 Personal history of other venous thrombosis and embolism; Z91.19 Patient's noncompliance with other medical treatment and regimen; Z68.23 Body mass index [BMI] 23.0-23.9, adult
CPT/HCPCS: 36415; 80048; 80053; 80069; 81003; 82010; 82803; 82962; 83735; 85025; 99285; G0378; J1815; J7030; J7120

== ENCOUNTER 2020-04-26 21:53 | Inpatient (IN) | payer MEDICAID ==
[~2020-04-26] VITALS: Ht 154.9 cm; Wt 71.9 kg
[~2020-04-26 21:53] MED LIST changes: -LISI-424 PO; +LISI-606 PO
[2020-04-26] MEDS ORDERED: ETOMIDATE 20 MG/10 ML IVPush ONE (22:00)
[2020-04-26] MEDS ORDERED: SODIUM CHLORIDE 0.9% 1,000ML IVBOLUS ONE ×2 (22:00→23:30)
[2020-04-26] MEDS ORDERED: ROCURONIUM 10 MG/ML,10ML IVPush ONE (22:00)
--- NOTE | 2020-04-26 22:41 | NUR ---
TASK RN: THIS IS A 24 YO FEMALE WELL KNOWN TO EMS AND THIS ER BIB [facility] FOR ALTERED MENTAL STATUS AND "HIGH" BS READING. PT MINIMALLY RESPONSIVE TO PAIN AND BREATHING RAPIDLY AND SHALLOWLY RR30'S WITH CO2 ET 8. IV ACCESS ESTABLISHED AND EMERGENT INTUBATION PERFORMED BY NARGIS BANGURA AT 2204 WITH 7.5 ET TUBE, 24 AT THE LIP. PT TOLERATED PROCEDURE WELL AND APPEARS TO BE TOLERATING SEDATION WELL. PT ON CONT BP, CARDIAC, SPO2 AND CO2 MONITORS. PRIMARY RN MIMI AT BEDSIDE.
[2020-04-26] MEDS ORDERED: REGULAR INSULIN 100 UNITS in SODIUM CHLORIDE 0.9% 99 ML IV PRN (23:00)
[2020-04-26] MEDS ORDERED: PROPOFOL 100 ML IV PRN (23:00)
[2020-04-26 23:08] LABS: MEAN CORPUSCULAR HEMOGLOBIN 31.7 pg (27.0-34.8); MEAN PLATELET VOLUME 8.8 fL (7.4-10.4); PLATELET COUNT 512 x10^3/uL (130-400); RED BLOOD COUNT 3.44 x10^6/uL (3.82-5.3); RED CELL DISTRIBUTION WIDTH 19.4 % (9.6-15.2)
[2020-04-26 23:10] LABS: ACETONE, SERUM Large (80mg/dL) (Negative)
[2020-04-26 23:12] LABS: MEAN CORPUSCULAR HGB CONC 25.6 g/dL (32.4-35.8)
[2020-04-26 23:13] LABS: MD YES
[2020-04-26 23:14] LABS: CALCIUM 8.5 mg/dL (8.5-10.1); SALICYLATE LEVEL 8.4 mg/dL (2.8-20.0)
[2020-04-26 23:18] LABS: ALANINE AMINOTRANSFERASE 131 U/L (12-78); ALKALINE PHOSPHATASE 353 U/L (45-117); BILIRUBIN,TOTAL 0.6 mg/dL (0.2-1.0); CREATININE 1.54 mg/dL (0.55-1.02); TOTAL PROTEIN 6.5 g/dL (6.4-8.2)
[2020-04-26 23:25] LABS: ANION GAP 34 mmol/L (5-15); CHLORIDE 89 mmol/L (98-107)
[2020-04-26] MEDS ORDERED: NOREPINEPHRINE 8 MG in SODIUM CHLORIDE 0.9% 242 ML IV PRN (23:30)
--- NOTE | 2020-04-26 23:45 | NUR ---
pt resting in bed, ventilated and sedated, vss at this time
[2020-04-26 23:49] LABS: ANISOCYTOSIS 2+; BAND#(MANUAL) 0.18 x10^3/uL; BANDS%(MANUAL) 1 % (0-7); BASOS#(MANUAL) 0.18 x10^3/uL (0-0.1); BASOS% (MANUAL) 1 % (0-1); EOS#(MANUAL) 0.18 x10^3/uL (0.0-0.4); EOS% (MANUAL) 1 % (1-7); LYMPH#(MANUAL) 2.76 x10^3/uL (1-3.4); LYMPHS% (MANUAL) 15 % (22-44); METAMYELOCYTES# (MANUAL) 0.18 x10^3/uL (0-0); METAMYELOCYTES% (MANUAL) 1 % (0-1); MONOS#(MANUAL) 2.58 x10^3/uL (0.3-2.7); MONOS% (MANUAL) 14 % (2-9); MYELOCYTES# (MANUAL) 0.18 x10^3/uL (0-0); MYELOCYTES% (MANUAL) 1 % (0-0); POLYCHROMASIA 1+; SEG#(MANUAL) 12.14 x10^3/uL (1.8-6.8); SEGS% (MANUAL) 66 % (42-75)
[2020-04-26 23:50] LABS: <PLATELET ESTIMATE> INCREASED; <PLT MORPHOLOGY> NORMAL PLT MORPH; HYPOCHROMIA 1+
--- NOTE | 2020-04-27 00:10 | NUR ---
pt sleeping in bed, bear hugger placed for warmth, vss
[2020-04-27] MEDS ORDERED: PIPERACILLIN/TAZO/PMX 3.375GM 50 ML ONE (00:11)
[2020-04-27] MEDS ORDERED: VANCOMYCIN PER PHARMACY MC PRN ×2 (00:30)
[2020-04-27] MEDS ORDERED: PIPERACILLIN/TAZO/PMX 3.375GM 50 ML IV ONE (00:30)
[2020-04-27] MEDS ORDERED: REGULAR INSULIN 100 UNITS in SODIUM CHLORIDE 0.9% 99 ML IV PRN (00:30)
[2020-04-27] MEDS ORDERED: GLUCAGON 1 MG IM PRN (00:30)
[2020-04-27] MEDS ORDERED: DEXTROSE 50%, 50ML SYRINGE IVPush PRN (00:30)
[2020-04-27] MEDS ORDERED: DEXTROSE 4 GM TAB.CHEW PO PRN (00:30)
[2020-04-27] MEDS ORDERED: SODIUM CHLORIDE 0.9% 1,000 ML IV SCH (00:30)
[2020-04-27] MEDS: D5%-0.45NACL+KCL 20MEQ 1,000 ML IV SCH ×2 (00:30→08:58)
[2020-04-27] MEDS ORDERED: SODIUM CHLORIDE 0.9% 1,000ML IVBOLUS ONE (00:30)
[2020-04-27] MEDS ORDERED: VANCOMYCIN 1,600 MG in SODIUM CHLORIDE 0.9% 250 ML IV ONE (00:30)
--- NOTE | 2020-04-27 00:52 | NUR ---
pt intubated, vss, bs drawn for q1hr check
[2020-04-27] MEDS ORDERED: LIDOCAINE-MPF 1%, 2ML ENDO PRN (01:00)
[2020-04-27] MEDS ORDERED: FENTANYL PF 100 MCG/2ML IVPush PRN (01:00)
[2020-04-27] MEDS ORDERED: PHARMACY MAY ADJ FOR RENAL FX MC SCH (01:00)
[2020-04-27] MEDS ORDERED: PHARMACOKINETIC MONITORING MC PRN (01:30)
[2020-04-27] MEDS ORDERED: PHARMACOKINETIC CONSULTATION MC ONE (01:30)
[2020-04-27 01:36] LABS: ANION GAP 32 mmol/L (5-15); CALCIUM 8.1 mg/dL (8.5-10.1); CHLORIDE 94 mmol/L (98-107)
[2020-04-27] MEDS: HEPARIN 5,000 UNITS/ML, 1ML SQ SCH ×3 (01:39→15:48)
[2020-04-27 01:40] LABS: CREATININE 1.64 mg/dL (0.55-1.02)
[2020-04-27 01:50] VITALS: BP 92/63
[2020-04-27] MEDS: PROPOFOL 100 ML IV PRN ×2 (03:25→06:34)
[2020-04-27 04:25] LABS: ANION GAP 30 mmol/L (5-15); CALCIUM 7.5 mg/dL (8.5-10.1); CHLORIDE 105 mmol/L (98-107); CREATININE 1.57 mg/dL (0.55-1.02)
[2020-04-27] MEDS ORDERED: SODIUM BICARB 8.4%, 50ML SYRINGE ONE (04:42)
[2020-04-27] MEDS ORDERED: SODIUM BICARB 8.4%, 50ML SYRINGE IVPush ONE (05:00)
[2020-04-27] MEDS: NOREPINEPHRINE 8 MG in SODIUM CHLORIDE 0.9% 242 ML IV PRN ×3 (05:23→21:53)
[2020-04-27] MEDS ORDERED: POTASSIUM CHLORIDE 10% 40 MEQ/30 ML UDC PO ONE (07:00)
[2020-04-27] MEDS: PIPERACILLIN/TAZO/PMX 3.375GM 50 ML IV SCH ×2 (08:22→16:24)
[2020-04-27] MEDS: PANTOPRAZOLE 40 MG IV IV SCH (08:23)
[2020-04-27 08:59] LABS: ANION GAP 22 mmol/L (5-15); CALCIUM 7.8 mg/dL (8.5-10.1); CHLORIDE 111 mmol/L (98-107); CREATININE 1.58 mg/dL (0.55-1.02)
[2020-04-27] MEDS ORDERED: DEXMEDETOMIDINE 200 MCG in SODIUM CHLORIDE 0.9% 48 ML IV PRN (09:00)
[2020-04-27] MEDS: SODIUM CHLORIDE FLUSH 10ML SYR IVF SCH ×2 (09:54→21:37)
[2020-04-27 12:23] LABS: ANION GAP 13 mmol/L (5-15); CALCIUM 7.8 mg/dL (8.5-10.1); CHLORIDE 115 mmol/L (98-107); CREATININE 1.68 mg/dL (0.55-1.02)
[2020-04-27] MEDS: INSULIN GLARGINE 100 UNITS/ML, PEN SQ-INSULIN SCH (12:50)
[2020-04-27] MEDS: SODIUM CHLORIDE 0.9% 1,000 ML IV SCH ×2 (12:51→20:28)
[2020-04-27] MEDS: INSULIN LISPRO 100 UNITS/ML, PEN SQ-INSULIN SCH ×2 (15:48→21:00)
[2020-04-27] MEDS ORDERED: VANCOMYCIN 1,200 MG in SODIUM CHLORIDE 0.9% 250 ML IV SCH (23:00)
[2020-04-28] MEDS: HEPARIN 5,000 UNITS/ML, 1ML SQ SCH ×2 (00:30→07:42)
[2020-04-28] MEDS: INSULIN GLARGINE 100 UNITS/ML, PEN SQ-INSULIN SCH ×2 (01:14→12:29)
[2020-04-28] MEDS: PIPERACILLIN/TAZO/PMX 3.375GM 50 ML IV SCH ×3 (01:14→16:48)
[2020-04-28 04:47] LABS: BASOPHILS % (AUTO) 1 % (0-1); EOSINOPHILS % (AUTO) 1 % (1-7); LYMPHOCYTES % (AUTO) 31 % (22-44); MEAN CORPUSCULAR HGB CONC 33.4 g/dL (32.4-35.8); MONOCYTES % (AUTO) 12 % (2-9); NEUTROPHILS % (AUTO) 55 % (42-75); PLATELET COUNT 170 x10^3/uL (130-400); RED CELL DISTRIBUTION WIDTH 18.4 % (9.6-15.2)
[2020-04-28 04:54] LABS: MD NO
[2020-04-28] MEDS: SODIUM CHLORIDE 0.9% 1,000 ML IV SCH (05:00)
[2020-04-28] MEDS: INSULIN LISPRO 100 UNITS/ML, PEN SQ-INSULIN SCH ×4 (06:13→19:58)
[2020-04-28] MEDS ORDERED: MAGNESIUM SULFATE PMX 2GM/50ML 50 ML IV ONE (06:30)
[2020-04-28 06:55] LABS: CHLORIDE 108 mmol/L (98-107)
[2020-04-28 07:04] LABS: ALANINE AMINOTRANSFERASE 84 U/L (12-78); ALBUMIN 2.1 g/dL (3.4-5.0); ALKALINE PHOSPHATASE 192 U/L (45-117); ANION GAP 9 mmol/L (5-15); BILIRUBIN, DIRECT 0.1 mg/dL (0.1-0.2); BILIRUBIN,INDIRECT 0.4 mg/dL (0.0-2.0); BILIRUBIN,TOTAL 0.5 mg/dL (0.2-1.0); CALCIUM 7.2 mg/dL (8.5-10.1); CREATININE 1.58 mg/dL (0.55-1.02); TOTAL PROTEIN 4.8 g/dL (6.4-8.2)
[2020-04-28] MEDS: SODIUM CHLORIDE FLUSH 10ML SYR IVF SCH ×2 (07:42→19:51)
[2020-04-28] MEDS: PANTOPRAZOLE 40 MG IV IV SCH (07:42)
[2020-04-28 13:21] VITALS: BP 106/71
[2020-04-28] MEDS ORDERED: VANCOMYCIN 1,200 MG in SODIUM CHLORIDE 0.9% 250 ML IV SCH (16:00)
[2020-04-28 19:48] VITALS: BP 116/78
[2020-04-28] MEDS: APIXABAN 5 MG TABLET PO SCH (19:51)
[2020-04-29] MEDS: INSULIN GLARGINE 100 UNITS/ML, PEN SQ-INSULIN SCH ×2 (01:07→13:10)
[2020-04-29] MEDS: PIPERACILLIN/TAZO/PMX 3.375GM 50 ML IV SCH (01:08)
[2020-04-29 01:14] VITALS: BP 112/78
[2020-04-29 04:46] LABS: BASOPHILS % (AUTO) 1 % (0-1); EOSINOPHILS % (AUTO) 1 % (1-7); LYMPHOCYTES % (AUTO) 43 % (22-44); MEAN CORPUSCULAR HEMOGLOBIN 32.2 pg (27.0-34.8); MEAN PLATELET VOLUME 7.4 fL (7.4-10.4); MONOCYTES % (AUTO) 15 % (2-9); NEUTROPHILS % (AUTO) 41 % (42-75); PLATELET COUNT 186 x10^3/uL (130-400); RED BLOOD COUNT 2.75 x10^6/uL (3.82-5.3); RED CELL DISTRIBUTION WIDTH 18.7 % (9.6-15.2)
[2020-04-29 04:51] LABS: ANION GAP 8 mmol/L (5-15); CALCIUM 7.6 mg/dL (8.5-10.1); CHLORIDE 110 mmol/L (98-107); CREATININE 1.69 mg/dL (0.55-1.02)
[2020-04-29] MEDS: PANTOPRAZOLE 40MG TABLET PO SCH (05:44)
[2020-04-29 05:50] LABS: MD SCAN
[2020-04-29 06:55] VITALS: BP 109/75
[2020-04-29] MEDS: INSULIN LISPRO 100 UNITS/ML, PEN SQ-INSULIN SCH ×4 (07:00→20:16)
[2020-04-29 07:13] LABS: ALANINE AMINOTRANSFERASE 84 U/L (12-78); ALBUMIN 2.3 g/dL (3.4-5.0)
[2020-04-29 07:15] LABS: ALKALINE PHOSPHATASE 213 U/L (45-117); BILIRUBIN,TOTAL 0.3 mg/dL (0.2-1.0); TOTAL PROTEIN 5.3 g/dL (6.4-8.2)
[2020-04-29 07:20] LABS: BILIRUBIN, DIRECT < 0.1 mg/dL (0.1-0.2); BILIRUBIN,INDIRECT 0.2 mg/dL (0.0-2.0)
[2020-04-29] MEDS: APIXABAN 5 MG TABLET PO SCH ×2 (07:35→20:16)
[2020-04-29] MEDS: SODIUM CHLORIDE FLUSH 10ML SYR IVF SCH ×2 (08:47→20:16)
[2020-04-29 12:35] LABS: MICROSCOPIC AUTO
[2020-04-29 13:11] VITALS: BP 137/92
[2020-04-29 19:07] VITALS: BP 134/88
[2020-04-30 00:57] VITALS: BP 118/80
[2020-04-30] MEDS: INSULIN GLARGINE 100 UNITS/ML, PEN SQ-INSULIN SCH ×2 (01:33→13:38)
[2020-04-30] MEDS: PANTOPRAZOLE 40MG TABLET PO SCH (05:09)
[2020-04-30 05:38] LABS: BASOPHILS % (AUTO) 1 % (0-1); EOSINOPHILS % (AUTO) 1 % (1-7); LYMPHOCYTES % (AUTO) 46 % (22-44); MEAN CORPUSCULAR HEMOGLOBIN 32.2 pg (27.0-34.8); MEAN CORPUSCULAR HGB CONC 33.2 g/dL (32.4-35.8); MEAN PLATELET VOLUME 7.6 fL (7.4-10.4); MONOCYTES % (AUTO) 10 % (2-9); NEUTROPHILS % (AUTO) 41 % (42-75); PLATELET COUNT 176 x10^3/uL (130-400); RED BLOOD COUNT 3.04 x10^6/uL (3.82-5.3); RED CELL DISTRIBUTION WIDTH 18.1 % (9.6-15.2)
[2020-04-30 05:39] LABS: MD NO
[2020-04-30 05:49] LABS: ANION GAP 11 mmol/L (5-15); CALCIUM 8.3 mg/dL (8.5-10.1); CHLORIDE 108 mmol/L (98-107)
[2020-04-30] MEDS: INSULIN LISPRO 100 UNITS/ML, PEN SQ-INSULIN SCH ×4 (07:00→21:14)
[2020-04-30 07:13] VITALS: BP 147/97
[2020-04-30] MEDS: SODIUM CHLORIDE FLUSH 10ML SYR IVF SCH ×2 (07:44→20:56)
[2020-04-30] MEDS: APIXABAN 5 MG TABLET PO SCH ×2 (07:44→20:56)
[2020-04-30] MEDS ORDERED: FUROSEMIDE 20 MG/2 ML IV ONE (10:30)
[2020-04-30] MEDS ORDERED: ACETAMINOPHEN 325 MG TABLET PO PRN (10:30)
[2020-04-30 12:25] VITALS: BP 158/107
[2020-04-30] MEDS ORDERED: LABETALOL 5MG/ML, 20ML IVPush PRN (13:30)
[2020-04-30 13:43] VITALS: BP 137/90
[2020-04-30 19:29] VITALS: BP 124/86
[2020-05-01] MEDS: INSULIN GLARGINE 100 UNITS/ML, PEN SQ-INSULIN SCH (01:00)
[2020-05-01 01:20] VITALS: BP 111/76
[2020-05-01] MEDS: PANTOPRAZOLE 40MG TABLET PO SCH (06:07)
[2020-05-01 06:38] VITALS: BP 141/95
[2020-05-01 06:56] LABS: ANION GAP 7 mmol/L (5-15); CALCIUM 8.3 mg/dL (8.5-10.1); CHLORIDE 108 mmol/L (98-107); CREATININE 1.34 mg/dL (0.55-1.02)
[2020-05-01 06:57] LABS: BASOPHILS % (AUTO) 1 % (0-1); EOSINOPHILS % (AUTO) 2 % (1-7); LYMPHOCYTES % (AUTO) 44 % (22-44); MEAN CORPUSCULAR HEMOGLOBIN 31.7 pg (27.0-34.8); MEAN CORPUSCULAR HGB CONC 32.8 g/dL (32.4-35.8); MEAN PLATELET VOLUME 7.9 fL (7.4-10.4); MONOCYTES % (AUTO) 8 % (2-9); NEUTROPHILS % (AUTO) 46 % (42-75); PLATELET COUNT 191 x10^3/uL (130-400); RED BLOOD COUNT 3.18 x10^6/uL (3.82-5.3); RED CELL DISTRIBUTION WIDTH 18.4 % (9.6-15.2)
[2020-05-01 06:59] LABS: MD NO
[2020-05-01] MEDS: INSULIN LISPRO 100 UNITS/ML, PEN SQ-INSULIN SCH ×2 (07:00→12:28)
[2020-05-01] MEDS: APIXABAN 5 MG TABLET PO SCH (08:10)
[2020-05-01] MEDS: SODIUM CHLORIDE FLUSH 10ML SYR IVF SCH (08:12)
[2020-05-01] MEDS ORDERED: INSULIN GLARGINE 100 UNITS/ML, PEN SQ-INSULIN SCH (09:00)
[2020-05-01] MEDS ORDERED: APIX5TAB PO (10:13)
[2020-05-01] MEDS ORDERED: PANT40TA6 PO (10:13)
[2020-05-01 12:24] VITALS: BP 141/98
== END 2020-05-01 15:00 | disposition home or self-care (01) | DRG 637 ==
LOC: ED 23:02 → EDIP 23:43 → CCU 04-27 01:15 → 3N 04-28 12:18 → DCLOUNGE 05-01 14:49
PROVIDERS: ADMIT Family Medicine; ATTEND Hospitalist
PROC: 06HY33Z Insertion of Infusion Device into Lower Vein, Percutaneous Approach (ICD-10-PCS; principal; 2020-04-26)
PROC: B54BZZA Ultrasonography of Right Lower Extremity Veins, Guidance (ICD-10-PCS; 2020-04-26)
PROC: 5A1935Z Respiratory Ventilation, Less than 24 Consecutive Hours (ICD-10-PCS; 2020-04-26)
PROC: 0BH17EZ Insertion of Endotracheal Airway into Trachea, Via Natural or Artificial Opening (ICD-10-PCS; 2020-04-26)
DX: E10.11 Type 1 diabetes mellitus with ketoacidosis with coma (principal); G93.41 Metabolic encephalopathy; J96.01 Acute respiratory failure with hypoxia; N17.9 Acute kidney failure, unspecified; Z99.11 Dependence on respirator [ventilator] status; D64.9 Anemia, unspecified; D72.829 Elevated white blood cell count, unspecified; E10.22 Type 1 diabetes mellitus with diabetic chronic kidney disease; E78.1 Pure hyperglyceridemia; E86.0 Dehydration; I12.9 Hypertensive chronic kidney disease with stage 1 through stage 4 chronic kidney disease, or unspecified chronic kidney disease; E10.43 Type 1 diabetes mellitus with diabetic autonomic (poly)neuropathy; K31.84 Gastroparesis; I95.9 Hypotension, unspecified; R74.01 Elevation of levels of liver transaminase levels; N18.9 Chronic kidney disease, unspecified; Z79.4 Long term (current) use of insulin; Z86.718 Personal history of other venous thrombosis and embolism; Z91.19 Patient's noncompliance with other medical treatment and regimen
CPT/HCPCS: 36415; 36600; 71045; 80048; 80053; 80076; 80299; 80320; 80329; 81001; 82010; 82803; 82947; 82962; 83036; 83605; 83735; 84100; 84145; 84478; 84703; 85025; 87040; 87081; 93005; 93970; 94002; 94003; 94150; 96374; 99291; G0378; J1644; J1815; J2543; J2704; J3370; C9113; G0480; J1940; J3475; J3480; J7030; J7050

== ENCOUNTER 2020-05-14 12:59 | Inpatient (IN) | payer MEDICAID ==
[~2020-05-14] VITALS: Ht 165.1 cm; Wt 62.3 kg
[2020-05-14] MEDS ORDERED: FERR-51 PO (13:12)
[2020-05-14] MEDS ORDERED: METO5TAB2 PO (13:12)
--- NOTE | 2020-05-14 13:19 | NUR ---
TANK FILLER: PT TO ROOM VIA WHEELCHAIR FROM TRIAGE ROOM
--- NOTE | 2020-05-14 13:21 | NUR ---
PT BROUGHT IN FROM WAITING ROOM. PT C/O HIGH BLOD SUGAR
[2020-05-14] MEDS ORDERED: SODIUM CHLORIDE FLUSH 10ML SYR IVF ONE (14:00)
[2020-05-14] MEDS ORDERED: SODIUM CHLORIDE 0.9% 1,000ML IVBOLUS ONE ×2 (14:00→16:00)
[2020-05-14] MEDS ORDERED: SODIUM CHLORIDE 0.9% 1,000 ML IV ONE (14:00)
[2020-05-14] MEDS ORDERED: ONDANSETRON 2MG/ML, 2ML IVPush ONE (14:00)
[2020-05-14 14:40] LABS: MEAN CORPUSCULAR HEMOGLOBIN 31.9 pg (27.0-34.8); MEAN PLATELET VOLUME 9.2 fL (7.4-10.4); PLATELET COUNT 510 x10^3/uL (130-400); RED BLOOD COUNT 3.87 x10^6/uL (3.82-5.3); RED CELL DISTRIBUTION WIDTH 19.7 % (9.6-15.2)
[2020-05-14 14:52] LABS: ALBUMIN 3.6 g/dL (3.4-5.0); ANION GAP 28 mmol/L (5-15); CALCIUM 9.4 mg/dL (8.5-10.1); CHLORIDE 91 mmol/L (98-107)
[2020-05-14 14:55] LABS: ALANINE AMINOTRANSFERASE 240 U/L (12-78); ALKALINE PHOSPHATASE 483 U/L (45-117); BILIRUBIN,TOTAL 0.6 mg/dL (0.2-1.0); CREATININE 1.62 mg/dL (0.55-1.02); TOTAL PROTEIN 8.1 g/dL (6.4-8.2)
--- NOTE | 2020-05-14 14:57 | NUR ---
BREAK RN: UNABLE TO OBTAIN PIV ACCESS DESPITE ATTEMPTS BY TONIO RN'S, AWAITING US PIV PLACEMENT- ERP AWARE.
[2020-05-14 15:31] LABS: MEAN CORPUSCULAR HGB CONC 28.2 g/dL (32.4-35.8)
[2020-05-14 15:32] LABS: MD YES
[2020-05-14 15:34] LABS: PH, VENOUS 7.001 pH (7.320-7.420)
[2020-05-14 15:38] LABS: EOS#(MANUAL) 0.08 x10^3/uL (0.0-0.4); EOS% (MANUAL) 1 % (1-7); LYMPH#(MANUAL) 1.74 x10^3/uL (1-3.4); LYMPHS% (MANUAL) 22 % (22-44); MONOS#(MANUAL) 0.55 x10^3/uL (0.3-2.7); MONOS% (MANUAL) 7 % (2-9)
[2020-05-14 15:40] LABS: BASOS#(MANUAL) 0.16 x10^3/uL (0-0.1); BASOS% (MANUAL) 2 % (0-1)
[2020-05-14 15:41] LABS: METAMYELOCYTES# (MANUAL) 0.08 x10^3/uL (0-0); METAMYELOCYTES% (MANUAL) 1 % (0-1); SEG#(MANUAL) 5.29 x10^3/uL (1.8-6.8); SEGS% (MANUAL) 67 % (42-75)
[2020-05-14 15:43] LABS: ANISOCYTOSIS 1+
[2020-05-14 15:44] LABS: <PLATELET ESTIMATE> INCREASED; <PLT MORPHOLOGY> NORMAL PLT MORPH
[2020-05-14] MEDS ORDERED: ONDANSETRON 2MG/ML, 2ML ONE (15:50)
[2020-05-14 15:57] LABS: MICROSCOPIC INDICATED
--- NOTE | 2020-05-14 15:59 | NUR ---
CONSENT SIGNED FOR CENTRAL LINE PLACEMENT
[2020-05-14] MEDS ORDERED: LABETALOL 5MG/ML, 20ML IVPush PRN (16:00)
[2020-05-14] MEDS ORDERED: DOCUSATE 100 MG CAPSULE PO PRN (16:00)
[2020-05-14] MEDS ORDERED: SODIUM CHLORIDE 0.9% 1,000 ML IV SCH (16:00)
[2020-05-14] MEDS ORDERED: ACETAMINOPHEN 325 MG TABLET PO PRN (16:00)
[2020-05-14] MEDS ORDERED: POLYETHYLENE GLYCOL 17 GM PACKET PO PRN (16:00)
[2020-05-14] MEDS ORDERED: ENALAPRILAT 1.25 MG/ML, 2ML IVPush PRN (16:00)
[2020-05-14 16:13] LABS: ACETONE, SERUM Large (80mg/dL) (Negative)
--- NOTE | 2020-05-14 16:20 | NUR ---
DR CHOI AT BEDSIDE FOR CENTRAL LINE PLACEMENT. LEFT IJ TRIPLE LUMEN PLACED. PT TOLERATED PROCEDURE WELL. VSS THROUGHOUT.
[2020-05-14] MEDS: REGULAR INSULIN 100 UNITS in SODIUM CHLORIDE 0.9% 99 ML IV PRN (17:09)
--- NOTE | 2020-05-14 17:10 | NUR ---
REPORT GIVEN TO CCU ELLE TORRES.
[2020-05-14] MEDS: D5%-0.45NACL+KCL 20MEQ 1,000 ML IV SCH ×2 (17:32→22:30)
[2020-05-14 17:38] VITALS: BP 100/51
--- NOTE | 2020-05-14 17:44 | NUR ---
PT TRANSPORTED TO ICU WITH THIS RN AND TUNA PURSE SEINER
[2020-05-14 17:46] VITALS: BP 85/68
[2020-05-14] MEDS: ENOXAPARIN 40 MG/0.4 ML SQ SCH (18:00)
[2020-05-14 19:48] LABS: ANION GAP 30 mmol/L (5-15); CALCIUM 8.3 mg/dL (8.5-10.1); CHLORIDE 102 mmol/L (98-107)
[2020-05-15] MEDS: ONDANSETRON 2MG/ML, 2ML IV PRN ×2 (00:04→05:46)
[2020-05-15 00:29] LABS: ANION GAP 19 mmol/L (5-15); CALCIUM 8.2 mg/dL (8.5-10.1); CHLORIDE 103 mmol/L (98-107); CREATININE 1.64 mg/dL (0.55-1.02)
[2020-05-15] MEDS ORDERED: PROMETHAZINE 25 MG/ML, 1ML ONE (01:07)
[2020-05-15] MEDS ORDERED: POTASSIUM CHLORIDE 10% 20 MEQ/15 ML UDC ONE (01:07)
[2020-05-15] MEDS ORDERED: PROMETHAZINE 25 MG/ML, 1ML IM PRN (01:30)
[2020-05-15] MEDS ORDERED: POTASSIUM CHLORIDE 10% 20 MEQ/15 ML UDC PO ONE (01:30)
[2020-05-15] MEDS: REGULAR INSULIN 100 UNITS in SODIUM CHLORIDE 0.9% 99 ML IV PRN (01:48)
[2020-05-15 04:59] LABS: ANION GAP 10 mmol/L (5-15); CALCIUM 8.5 mg/dL (8.5-10.1); CHLORIDE 106 mmol/L (98-107)
[2020-05-15 05:00] LABS: CREATININE 1.42 mg/dL (0.55-1.02)
[2020-05-15] MEDS: D5%-0.45NACL+KCL 20MEQ 1,000 ML IV SCH (06:33)
[2020-05-15] MEDS ORDERED: INSULIN GLARGINE 100 UNITS/ML, PEN SQ-INSULIN SCH ×2 (09:00→21:00)
[2020-05-15 09:25] LABS: ANION GAP 15 mmol/L (5-15); CALCIUM 8.3 mg/dL (8.5-10.1); CHLORIDE 101 mmol/L (98-107); CREATININE 1.65 mg/dL (0.55-1.02)
[2020-05-15] MEDS: SODIUM CHLORIDE 0.9% 1,000 ML IV SCH ×3 (09:25→23:37)
[2020-05-15] MEDS ORDERED: INSULIN GLARGINE 100 UNITS/ML, PEN SQ-INSULIN ONE (10:00)
[2020-05-15] MEDS ORDERED: GLUCAGON 1 MG IM PRN (10:00)
[2020-05-15] MEDS ORDERED: DEXTROSE 4 GM TAB.CHEW PO PRN (10:00)
[2020-05-15] MEDS ORDERED: DEXTROSE 50%, 50ML SYRINGE IVPush PRN (10:00)
[2020-05-15] MEDS ORDERED: INSULIN LISPRO 100 UNITS/ML, PEN SQ-INSULIN ONE (10:00)
[2020-05-15] MEDS: SODIUM CHLORIDE FLUSH 10ML SYR IVF SCH ×2 (10:02→20:13)
[2020-05-15] MEDS: INSULIN LISPRO 100 UNITS/ML, PEN SQ-INSULIN SCH ×3 (11:50→20:14)
[2020-05-15 12:26] LABS: ANION GAP 15 mmol/L (5-15); CALCIUM 8.2 mg/dL (8.5-10.1); CHLORIDE 101 mmol/L (98-107); CREATININE 1.61 mg/dL (0.55-1.02)
[2020-05-15] MEDS ORDERED: INSULIN REGULAR 100 UNITS/ML, 3ML VIAL IVPush ONE (13:00)
[2020-05-15 14:39] VITALS: BP 103/68
[2020-05-15] MEDS: ENOXAPARIN 40 MG/0.4 ML SQ SCH (18:00)
[2020-05-15 18:36] VITALS: BP 107/71
[2020-05-15] MEDS: INSULIN GLARGINE 100 UNITS/ML, PEN SQ-INSULIN SCH (20:14)
[2020-05-16 00:06] VITALS: BP 113/75
[2020-05-16 05:10] LABS: ALBUMIN 2.7 g/dL (3.4-5.0); ANION GAP 10 mmol/L (5-15); CHLORIDE 116 mmol/L (98-107)
[2020-05-16 05:13] LABS: ALANINE AMINOTRANSFERASE 131 U/L (12-78); ALKALINE PHOSPHATASE 263 U/L (45-117); BILIRUBIN,TOTAL 0.6 mg/dL (0.2-1.0); CREATININE 0.86 mg/dL (0.55-1.02); TOTAL PROTEIN 5.8 g/dL (6.4-8.2)
[2020-05-16 05:15] LABS: BASOPHILS % (AUTO) 2 % (0-1); EOSINOPHILS % (AUTO) 1 % (1-7); LYMPHOCYTES % (AUTO) 49 % (22-44); MEAN CORPUSCULAR HEMOGLOBIN 32.3 pg (27.0-34.8); MEAN CORPUSCULAR HGB CONC 33.2 g/dL (32.4-35.8); MEAN PLATELET VOLUME 7.8 fL (7.4-10.4); MONOCYTES % (AUTO) 8 % (2-9); NEUTROPHILS % (AUTO) 40 % (42-75); PLATELET COUNT 199 x10^3/uL (130-400); RED BLOOD COUNT 2.72 x10^6/uL (3.82-5.3); RED CELL DISTRIBUTION WIDTH 19.2 % (9.6-15.2)
[2020-05-16 05:17] LABS: MD NO
[2020-05-16 06:57] VITALS: BP 132/90
[2020-05-16] MEDS: APIXABAN 5 MG TABLET PO SCH ×2 (07:39→21:02)
[2020-05-16] MEDS: INSULIN GLARGINE 100 UNITS/ML, PEN SQ-INSULIN SCH ×2 (07:41→21:04)
[2020-05-16] MEDS: INSULIN LISPRO 100 UNITS/ML, PEN SQ-INSULIN SCH ×6 (07:42→21:03)
[2020-05-16] MEDS: CEPHALEXIN 500 MG CAPSULE PO SCH ×4 (09:16→21:02)
[2020-05-16] MEDS: SODIUM CHLORIDE FLUSH 10ML SYR IVF SCH ×2 (09:16→21:00)
[2020-05-16] MEDS: MUPIROCIN OINT 2%, 22GM TP SCH ×3 (11:18→21:03)
[2020-05-16 12:23] VITALS: BP 117/80
[2020-05-16 18:42] VITALS: BP 124/87
[2020-05-17 04:00] VITALS: BP 124/86
[2020-05-17 05:25] LABS: CHLORIDE 115 mmol/L (98-107)
[2020-05-17 05:30] LABS: ALANINE AMINOTRANSFERASE 137 U/L (12-78); ALBUMIN 2.7 g/dL (3.4-5.0); ALKALINE PHOSPHATASE 253 U/L (45-117); ANION GAP 9 mmol/L (5-15); BILIRUBIN,TOTAL 0.2 mg/dL (0.2-1.0); CALCIUM 8.7 mg/dL (8.5-10.1); CREATININE 0.67 mg/dL (0.55-1.02); TOTAL PROTEIN 5.8 g/dL (6.4-8.2)
[2020-05-17] MEDS: CEPHALEXIN 500 MG CAPSULE PO SCH ×2 (05:38→11:45)
[2020-05-17 07:05] VITALS: BP 138/95
[2020-05-17] MEDS: INSULIN GLARGINE 100 UNITS/ML, PEN SQ-INSULIN SCH (07:43)
[2020-05-17] MEDS: INSULIN LISPRO 100 UNITS/ML, PEN SQ-INSULIN SCH ×4 (07:44→11:44)
[2020-05-17] MEDS: APIXABAN 5 MG TABLET PO SCH (07:45)
[2020-05-17] MEDS: SODIUM CHLORIDE FLUSH 10ML SYR IVF SCH (07:51)
[2020-05-17] MEDS: MUPIROCIN OINT 2%, 22GM TP SCH (07:51)
[2020-05-17] MEDS ORDERED: MUPI22OI2 TP (09:22)
[2020-05-17] MEDS ORDERED: CEFD300C37 PO (09:22)
== END 2020-05-17 13:15 | disposition home or self-care (01) | DRG 637 ==
LOC: ED 14:50 → EDIP 15:41 → CCU 17:31 → 4NW 05-15 13:27 → DCLOUNGE 05-17 13:12
PROVIDERS: ADMIT Internal Medicine; ATTEND Hospitalist
PROC: 02HV33Z Insertion of Infusion Device into Superior Vena Cava, Percutaneous Approach (ICD-10-PCS; principal; 2020-05-14)
PROC: B548ZZA Ultrasonography of Superior Vena Cava, Guidance (ICD-10-PCS; 2020-05-14)
DX: E10.10 Type 1 diabetes mellitus with ketoacidosis without coma (principal); N17.0 Acute kidney failure with tubular necrosis; I82.401 Acute embolism and thrombosis of unspecified deep veins of right lower extremity; Z99.11 Dependence on respirator [ventilator] status; D50.9 Iron deficiency anemia, unspecified; E10.43 Type 1 diabetes mellitus with diabetic autonomic (poly)neuropathy; Z79.01 Long term (current) use of anticoagulants; L03.032 Cellulitis of left toe; K82.8 Other specified diseases of gallbladder; Z83.3 Family history of diabetes mellitus; Z82.0 Family history of epilepsy and other diseases of the nervous system; Z86.718 Personal history of other venous thrombosis and embolism; K31.84 Gastroparesis; D75.89 Other specified diseases of blood and blood-forming organs; E55.9 Vitamin D deficiency, unspecified; E78.5 Hyperlipidemia, unspecified; F12.90 Cannabis use, unspecified, uncomplicated; I10 Essential (primary) hypertension; Z91.14 Patient's other noncompliance with medication regimen; Z88.8 Allergy status to other drugs, medicaments and biological substances; Z91.040 Latex allergy status
CPT/HCPCS: 36415; 71045; 80048; 80053; 81001; 82010; 82803; 82947; 82962; 83605; 83690; 83735; 84100; 84703; 85025; 87081; 87086; 93005; 96361; 96374; 99285; G0378; J1650; J1815; J2405; J2550; J3480; J7030

== ENCOUNTER 2020-05-20 18:03 | Inpatient (IN) | payer MEDICAID ==
[~2020-05-20] VITALS: Ht 165.1 cm; Wt 69.0 kg
[~2020-05-20 18:03] MED LIST changes: +METO5TAB2 PO; +MUPI22OI2 TP
--- NOTE | 2020-05-20 18:05 | NUR ---
pt BIB [facility] from home for ALOC and resp distress. pt has long hx of type 1 DM and is non-complaint with treatment regimen at home. pt has been here mulitple times previously for same upon admit, pt is obtunded and tachypneic. pt unable to answer questions or follow commands no family present FSBS 466 PT and per report pt was high 70's to low 80's for pulse ox and profoundly hypotensive pt is pale and cool
--- NOTE | 2020-05-20 18:26 | NUR ---
lab at bedside to attempt blood draw IV fluids are running on hotline/fluid warmer, bear hugger in place for warming pt has been incontinent of stool. pt cleaned
[2020-05-20] MEDS ORDERED: SODIUM CHLORIDE 0.9% 1,000ML IVBOLUS ONE ×3 (18:30→19:30)
--- NOTE | 2020-05-20 18:36 | NUR ---
unable to complete med rec at this time per report aliya MEJIA from family on scene, pt takes: lantus omeprazole sulfa famotidine atorvastatin reglan phenergan doses unkown
[2020-05-20 18:48] LABS: MEAN CORPUSCULAR HEMOGLOBIN 32.1 pg (27.0-34.8); MEAN PLATELET VOLUME 8.9 fL (7.4-10.4); PLATELET COUNT 606 x10^3/uL (130-400); RED BLOOD COUNT 3.16 x10^6/uL (3.82-5.3)
--- NOTE | 2020-05-20 18:50 | NUR ---
Dr. Quinteros at bedside to attempt central line placement
--- NOTE | 2020-05-20 18:51 | NUR ---
bedside report to Chica Barney and Ki RN
[2020-05-20 19:00] LABS: ALBUMIN 3.1 g/dL (3.4-5.0); ANION GAP 37 mmol/L (5-15); CALCIUM 8.2 mg/dL (8.5-10.1); CHLORIDE 89 mmol/L (98-107); CREATININE 2.31 mg/dL (0.55-1.02)
--- NOTE | 2020-05-20 19:00 | NUR ---
CENTRAL LINE PLACED BY DR. FLAHERTY, PT TOLERATED WELL, OKAY TO USE PER .
[2020-05-20 19:21] LABS: MEAN CORPUSCULAR HGB CONC 24.6 g/dL (32.4-35.8)
--- NOTE | 2020-05-20 19:21 | NUR ---
THIRD LITER NS BOLUS INFUSING.
[2020-05-20 19:22] LABS: MD YES
[2020-05-20 19:24] LABS: BAND#(MANUAL) 1.62 x10^3/uL; BANDS%(MANUAL) 9 % (0-7); BASOS#(MANUAL) 0.18 x10^3/uL (0-0.1); BASOS% (MANUAL) 1 % (0-1); LYMPH#(MANUAL) 3.42 x10^3/uL (1-3.4); LYMPHS% (MANUAL) 19 % (22-44); METAMYELOCYTES# (MANUAL) 0.54 x10^3/uL (0-0); METAMYELOCYTES% (MANUAL) 3 % (0-1); MONOS#(MANUAL) 1.26 x10^3/uL (0.3-2.7); MONOS% (MANUAL) 7 % (2-9)
[2020-05-20 19:25] LABS: ANISOCYTOSIS 1+; POLYCHROMASIA 1+
[2020-05-20 19:26] LABS: <PLATELET ESTIMATE> INCREASED; MYELOCYTES# (MANUAL) 0.18 x10^3/uL (0-0); MYELOCYTES% (MANUAL) 1 % (0-0); SEGS% (MANUAL) 60 % (42-75)
[2020-05-20 19:27] LABS: <PLT MORPHOLOGY> NORMAL PLT MORPH
[2020-05-20] MEDS ORDERED: ONDANSETRON 2MG/ML, 2ML IV PRN ×2 (19:30→22:00)
[2020-05-20] MEDS ORDERED: PROPOFOL 100 ML IV PRN ×2 (19:30→22:00)
[2020-05-20] MEDS ORDERED: BISACODYL 10 MG SUPP PR PRN (19:30)
[2020-05-20] MEDS ORDERED: SODIUM CHLORIDE 0.45% 1,000 ML IV SCH (19:30)
[2020-05-20] MEDS ORDERED: DEXTROSE 50%, 50ML SYRINGE IVPush PRN ×2 (19:30→22:00)
[2020-05-20] MEDS ORDERED: MIDAZOLAM 1 MG/ML, 5ML IVPush ONE (19:30)
[2020-05-20] MEDS ORDERED: DEXTROSE 4 GM TAB.CHEW PO PRN ×2 (19:30→22:00)
[2020-05-20] MEDS ORDERED: SUCCINYLCHOLINE 20 MG/ML, 10ML IVPush ONE (19:30)
[2020-05-20] MEDS ORDERED: VANCOMYCIN PER PHARMACY MC PRN (19:30)
[2020-05-20] MEDS ORDERED: NOREPINEPHRINE 8 MG in SODIUM CHLORIDE 0.9% 242 ML IV PRN (19:30)
[2020-05-20] MEDS ORDERED: ETOMIDATE 20 MG/10 ML IVPush ONE (19:30)
[2020-05-20] MEDS ORDERED: GLUCAGON 1 MG IM PRN ×2 (19:30→22:00)
[2020-05-20] MEDS ORDERED: SODIUM BICARBONATE 1 MEQ/ML, 50ML VIAL IVPush ONE (19:30)
[2020-05-20] MEDS: D5%-0.45NACL+KCL 20MEQ 1,000 ML IV SCH (19:30)
--- NOTE | 2020-05-20 19:40 | NUR ---
PT INTUBATED BY DR. FLAHERTY, RT AT BEDSIDE, ETT 8 @21CM AT LIP, 100%FIO2, 1000TV. PROPOFOL INFUSING FOR SEDATION. VSS.
[2020-05-20 19:50] LABS: MICROSCOPIC AUTO
[2020-05-20] MEDS ORDERED: SUCCINYLCHOLINE 20 MG/ML, 10ML ONE (20:05)
[2020-05-20] MEDS ORDERED: PROPOFOL 10 MG/ML, 100ML IV ONE (20:05)
[2020-05-20] MEDS ORDERED: SODIUM CHLORIDE FLUSH 0.9%, 20 ML ONE (20:05)
[2020-05-20] MEDS ORDERED: MIDAZOLAM 1 MG/ML, 5ML ONE (20:05)
[2020-05-20 20:25] LABS: ACETONE, SERUM Large (80mg/dL) (Negative)
--- NOTE | 2020-05-20 20:28 | NUR ---
REPORT GIVEN TO MANUEL ALMEIDA.
[2020-05-20] MEDS ORDERED: VANCOMYCIN PMX 1GM/200ML 200 ML IV ONE (20:30)
[2020-05-20] MEDS ORDERED: PHARMACOKINETIC MONITORING MC PRN (20:30)
[2020-05-20] MEDS ORDERED: PHARMACOKINETIC CONSULTATION MC ONE (20:30)
[2020-05-20 20:33] LABS: ANION GAP 34 mmol/L (5-15); CALCIUM 7.5 mg/dL (8.5-10.1); CHLORIDE 95 mmol/L (98-107); CREATININE 2.05 mg/dL (0.55-1.02)
--- NOTE | 2020-05-20 20:40 | NUR ---
PT TRANSPORTED TO CCU WITH RN'S X2, RT, AND ED TECHS X2. VSS.
[2020-05-20] MEDS ORDERED: SODIUM CHLORIDE FLUSH 10ML SYR IVF SCH (21:00)
[2020-05-20] MEDS: SODIUM CHLORIDE 0.9% 1,000 ML IV SCH (21:34)
[2020-05-20] MEDS: HEPARIN 5,000 UNITS/ML, 1ML SQ SCH (21:35)
[2020-05-20] MEDS: REGULAR INSULIN 100 UNITS in SODIUM CHLORIDE 0.9% 99 ML IV PRN (21:48)
[2020-05-20] MEDS: SODIUM CHLORIDE FLUSH 10ML SYR IVF SCH (22:00)
[2020-05-20] MEDS ORDERED: PHARMACY MAY ADJ FOR RENAL FX MC SCH (22:00)
[2020-05-20] MEDS ORDERED: LIDOCAINE-MPF 1%, 2ML ENDO PRN (22:00)
[2020-05-20] MEDS ORDERED: SENNA/DOCUSATE TABLET NG PRN (22:00)
[2020-05-20] MEDS: PIPERACILLIN/TAZO/PMX 3.375GM 50 ML IV SCH (22:45)
[2020-05-20] MEDS: FENTANYL PF 100 MCG/2ML IVPush PRN (23:00)
[2020-05-20] MEDS: FAMOTIDINE 20 MG/2 ML IVPush SCH (23:00)
[2020-05-21] MEDS: REGULAR INSULIN 100 UNITS in SODIUM CHLORIDE 0.9% 99 ML IV PRN ×2 (00:33→07:45)
[2020-05-21] MEDS: NOREPINEPHRINE 8 MG in SODIUM CHLORIDE 0.9% 242 ML IV PRN ×2 (00:35→22:16)
[2020-05-21] MEDS: SODIUM CHLORIDE 0.9% 1,000 ML IV SCH ×3 (00:36→10:26)
[2020-05-21 00:43] LABS: ANION GAP 30 mmol/L (5-15); CALCIUM 6.8 mg/dL (8.5-10.1); CHLORIDE 103 mmol/L (98-107); CREATININE 1.91 mg/dL (0.55-1.02)
[2020-05-21] MEDS: FENTANYL PF 100 MCG/2ML IVPush PRN ×2 (01:17→02:20)
[2020-05-21] MEDS: D5%-0.45NACL+KCL 20MEQ 1,000 ML IV SCH ×2 (03:30→10:26)
[2020-05-21] MEDS ORDERED: DEXMEDETOMIDINE 200 MCG in SODIUM CHLORIDE 0.9% 48 ML IV PRN (03:51)
[2020-05-21] MEDS: VASOPRESSIN 20 UNIT in SODIUM CHLORIDE 0.9% 99 ML IV PRN ×2 (04:47→12:47)
[2020-05-21] MEDS: HEPARIN 5,000 UNITS/ML, 1ML SQ SCH ×3 (04:50→19:25)
[2020-05-21 04:52] LABS: MEAN CORPUSCULAR HGB CONC 32.2 g/dL (32.4-35.8); PLATELET COUNT 495 x10^3/uL (130-400); RED BLOOD COUNT 2.92 x10^6/uL (3.82-5.3); RED CELL DISTRIBUTION WIDTH 17.9 % (9.6-15.2)
[2020-05-21 04:58] LABS: ANION GAP 28 mmol/L (5-15); CHLORIDE 111 mmol/L (98-107)
[2020-05-21 05:00] LABS: CREATININE 2.16 mg/dL (0.55-1.02)
[2020-05-21 05:25] LABS: MD YES
[2020-05-21 05:27] LABS: ANISOCYTOSIS 1+; BAND#(MANUAL) 0.15 x10^3/uL; BANDS%(MANUAL) 1 % (0-7); LYMPH#(MANUAL) 2.52 x10^3/uL (1-3.4); LYMPHS% (MANUAL) 17 % (22-44); MONOS#(MANUAL) 0.74 x10^3/uL (0.3-2.7); MONOS% (MANUAL) 5 % (2-9); POLYCHROMASIA 1+; SEGS% (MANUAL) 77 % (42-75)
[2020-05-21 05:28] LABS: <PLATELET ESTIMATE> INCREASED; <PLT MORPHOLOGY> NORMAL PLT MORPH
[2020-05-21] MEDS: PIPERACILLIN/TAZO/PMX 3.375GM 50 ML IV SCH ×2 (05:45→19:50)
[2020-05-21] MEDS ORDERED: POTASSIUM CHLORIDE 10% 40 MEQ/30 ML UDC PO ONE (07:30)
[2020-05-21] MEDS: PIPERACILLIN/TAZO/PMX 2.25GM 50 ML IVPB SCH ×2 (07:30→14:21)
[2020-05-21] MEDS ORDERED: MAGNESIUM SULFATE PMX 4GM/100M 100 ML IVPB ONE (07:30)
[2020-05-21 08:52] LABS: CALCIUM 7.4 mg/dL (8.5-10.1); CREATININE 2.09 mg/dL (0.55-1.02)
[2020-05-21 09:07] LABS: ANION GAP 16 mmol/L (5-15); CHLORIDE 117 mmol/L (98-107)
[2020-05-21] MEDS: FAMOTIDINE 20 MG/2 ML IVPush SCH (09:26)
[2020-05-21] MEDS: SODIUM CHLORIDE FLUSH 10ML SYR IVF SCH ×2 (09:26→19:48)
[2020-05-21] MEDS ORDERED: POTASSIUM CHLORIDE 20 MEQ TAB.ER.PRT PO ONE (09:30)
[2020-05-21] MEDS ORDERED: VANCOMYCIN PMX 1GM/200ML 200 ML IVPB ONE (11:00)
[2020-05-21 12:46] LABS: ANION GAP 11 mmol/L (5-15); CALCIUM 7.4 mg/dL (8.5-10.1); CHLORIDE 120 mmol/L (98-107); CREATININE 1.77 mg/dL (0.55-1.02)
[2020-05-21] MEDS ORDERED: INSULIN GLARGINE 100 UNITS/ML, PEN ONE (14:25)
[2020-05-21] MEDS: INSULIN GLARGINE 100 UNITS/ML, PEN SQ-INSULIN SCH ×2 (14:26→21:00)
[2020-05-21] MEDS: INSULIN LISPRO 100 UNITS/ML, PEN SQ-INSULIN SCH ×2 (15:54→21:00)
[2020-05-21] MEDS: POTASSIUM CHLORIDE 20 MEQ in SODIUM CHLORIDE 0.9% 1,000 ML IV SCH ×2 (16:04→23:33)
[2020-05-21] MEDS: ACETAMINOPHEN 325 MG TABLET PO PRN (20:55)
[2020-05-22] MEDS: HEPARIN 5,000 UNITS/ML, 1ML SQ SCH ×3 (02:09→17:01)
[2020-05-22] MEDS: PIPERACILLIN/TAZO/PMX 3.375GM 50 ML IV SCH (02:12)
[2020-05-22 03:46] LABS: MEAN CORPUSCULAR HEMOGLOBIN 32.3 pg (27.0-34.8); MEAN CORPUSCULAR HGB CONC 33.8 g/dL (32.4-35.8); MEAN PLATELET VOLUME 7.3 fL (7.4-10.4); PLATELET COUNT 219 x10^3/uL (130-400); RED BLOOD COUNT 2.38 x10^6/uL (3.82-5.3); RED CELL DISTRIBUTION WIDTH 18.7 % (9.6-15.2)
[2020-05-22 03:57] LABS: ANION GAP 10 mmol/L (5-15); CALCIUM 6.9 mg/dL (8.5-10.1); CHLORIDE 110 mmol/L (98-107); CREATININE 1.49 mg/dL (0.55-1.02)
[2020-05-22 04:00] LABS: VANCOMYCIN,RANDOM 20.2 mcg/mL
[2020-05-22 04:07] LABS: MD YES
[2020-05-22 04:10] LABS: ANISOCYTOSIS 1+; BAND#(MANUAL) 0.31 x10^3/uL; BANDS%(MANUAL) 4 % (0-7); BASOS#(MANUAL) 0.15 x10^3/uL (0-0.1); BASOS% (MANUAL) 2 % (0-1); LYMPHS% (MANUAL) 26 % (22-44); METAMYELOCYTES# (MANUAL) 0.08 x10^3/uL (0-0); METAMYELOCYTES% (MANUAL) 1 % (0-1); MONOS#(MANUAL) 0.23 x10^3/uL (0.3-2.7); MONOS% (MANUAL) 3 % (2-9); MYELOCYTES# (MANUAL) 0.08 x10^3/uL (0-0); MYELOCYTES% (MANUAL) 1 % (0-0); SEG#(MANUAL) 4.85 x10^3/uL (1.8-6.8); SEGS% (MANUAL) 63 % (42-75)
[2020-05-22 04:11] LABS: <PLATELET ESTIMATE> ADEQUATE; <PLT MORPHOLOGY> NORMAL PLT MORPH; POLYCHROMASIA 1+
[2020-05-22] MEDS: INSULIN LISPRO 100 UNITS/ML, PEN SQ-INSULIN SCH ×4 (06:13→21:13)
[2020-05-22] MEDS ORDERED: POTASSIUM PHOSPHATE 44 MEQ in SODIUM CHLORIDE 0.9% 500 ML IV ONE (07:30)
[2020-05-22] MEDS: INSULIN GLARGINE 100 UNITS/ML, PEN SQ-INSULIN SCH ×2 (08:05→21:12)
[2020-05-22] MEDS: SODIUM CHLORIDE FLUSH 10ML SYR IVF SCH ×2 (08:06→21:14)
[2020-05-22 19:33] VITALS: BP 123/83
[2020-05-23 01:08] VITALS: BP 137/95
[2020-05-23] MEDS: HEPARIN 5,000 UNITS/ML, 1ML SQ SCH ×3 (02:56→19:47)
[2020-05-23 04:55] LABS: BASOPHILS % (AUTO) 1 % (0-1); EOSINOPHILS % (AUTO) 1 % (1-7); LYMPHOCYTES % (AUTO) 36 % (22-44); MEAN CORPUSCULAR HEMOGLOBIN 32.7 pg (27.0-34.8); MEAN CORPUSCULAR HGB CONC 33.3 g/dL (32.4-35.8); MEAN PLATELET VOLUME 7.4 fL (7.4-10.4); MONOCYTES % (AUTO) 11 % (2-9); NEUTROPHILS % (AUTO) 52 % (42-75); PLATELET COUNT 161 x10^3/uL (130-400); RED BLOOD COUNT 2.32 x10^6/uL (3.82-5.3); RED CELL DISTRIBUTION WIDTH 18.3 % (9.6-15.2)
[2020-05-23 04:59] LABS: MD NO
[2020-05-23 07:35] VITALS: BP 144/94
[2020-05-23] MEDS: INSULIN LISPRO 100 UNITS/ML, PEN SQ-INSULIN SCH ×4 (08:18→20:56)
[2020-05-23] MEDS: SODIUM CHLORIDE FLUSH 10ML SYR IVF SCH ×2 (10:18→19:47)
[2020-05-23] MEDS: INSULIN GLARGINE 100 UNITS/ML, PEN SQ-INSULIN SCH ×2 (10:19→20:55)
[2020-05-23] MEDS: ACETAMINOPHEN 325 MG TABLET PO PRN (11:49)
[2020-05-23 12:21] VITALS: BP 152/99
[2020-05-23] MEDS ORDERED: INSULIN LISPRO 100 UNIT/ML, 3ML VIAL SQ-INSULIN ONE (12:30)
[2020-05-23 20:15] VITALS: BP 128/90
[2020-05-24 00:49] VITALS: BP 108/70
[2020-05-24] MEDS: HEPARIN 5,000 UNITS/ML, 1ML SQ SCH ×2 (03:31→12:39)
[2020-05-24 06:41] LABS: ANION GAP 7 mmol/L (5-15); CALCIUM 8.7 mg/dL (8.5-10.1); CHLORIDE 114 mmol/L (98-107); CREATININE 0.77 mg/dL (0.55-1.02)
[2020-05-24] MEDS: INSULIN LISPRO 100 UNITS/ML, PEN SQ-INSULIN SCH ×2 (07:26→12:38)
[2020-05-24 07:33] VITALS: BP 138/97
[2020-05-24] MEDS: SODIUM CHLORIDE FLUSH 10ML SYR IVF SCH (08:49)
[2020-05-24] MEDS: INSULIN GLARGINE 100 UNITS/ML, PEN SQ-INSULIN SCH (08:50)
[2020-05-24] MEDS ORDERED: INSU100I13 SQ-INSULIN (12:30)
[2020-05-24 13:30] VITALS: BP 149/101
[2020-05-24 14:25] VITALS: BP 146/95
== END 2020-05-24 16:19 | disposition home or self-care (01) | DRG 871 ==
LOC: ED 18:34 → EDIP 19:30 → CCU 20:48 → 3N 05-22 18:27
PROVIDERS: ADMIT Family Medicine; ATTEND Internal Medicine
PROC: 0T9B70Z Drainage of Bladder with Drainage Device, Via Natural or Artificial Opening (ICD-10-PCS; principal; 2020-05-20)
PROC: 02HV33Z Insertion of Infusion Device into Superior Vena Cava, Percutaneous Approach (ICD-10-PCS; 2020-05-20)
PROC: B548ZZA Ultrasonography of Superior Vena Cava, Guidance (ICD-10-PCS; 2020-05-20)
PROC: 0BH17EZ Insertion of Endotracheal Airway into Trachea, Via Natural or Artificial Opening (ICD-10-PCS; 2020-05-20)
PROC: 5A1935Z Respiratory Ventilation, Less than 24 Consecutive Hours (ICD-10-PCS; 2020-05-20)
DX: A41.9 Sepsis, unspecified organism (principal); E10.10 Type 1 diabetes mellitus with ketoacidosis without coma; E43 Unspecified severe protein-calorie malnutrition; G93.41 Metabolic encephalopathy; J96.01 Acute respiratory failure with hypoxia; N17.0 Acute kidney failure with tubular necrosis; R57.1 Hypovolemic shock; R65.21 Severe sepsis with septic shock; Z99.11 Dependence on respirator [ventilator] status; Z88.8 Allergy status to other drugs, medicaments and biological substances; Z91.040 Latex allergy status; E10.43 Type 1 diabetes mellitus with diabetic autonomic (poly)neuropathy; E55.9 Vitamin D deficiency, unspecified; E78.5 Hyperlipidemia, unspecified; E87.5 Hyperkalemia; I10 Essential (primary) hypertension; K31.84 Gastroparesis; K82.8 Other specified diseases of gallbladder; Z79.01 Long term (current) use of anticoagulants; Z82.0 Family history of epilepsy and other diseases of the nervous system; Z83.3 Family history of diabetes mellitus; Z86.718 Personal history of other venous thrombosis and embolism; Z91.14 Patient's other noncompliance with medication regimen; D75.89 Other specified diseases of blood and blood-forming organs; D50.9 Iron deficiency anemia, unspecified; Z68.25 Body mass index [BMI] 25.0-25.9, adult
CPT/HCPCS: 31500; 36415; 36556; 36600; 71045; 80048; 80202; 81001; 82010; 82040; 82803; 82947; 82962; 83735; 84100; 84145; 84478; 85025; 87040; 87070; 87081; 87205; 93005; 94002; 94003; 96374; 99291; G0378; J1644; J1815; J2250; J2405; J2543; J2704; J3010; J3370; J3480; J0330; J3475; J7030; J7040; J7050

== ENCOUNTER 2020-05-27 12:11 | Inpatient (IN) | payer MEDICAID ==
[~2020-05-27] VITALS: Ht 165.1 cm; Wt 65.0 kg
--- NOTE | 2020-05-27 12:23 | NUR ---
PT BIB EMS FOR ALOC AND HIGH BLOOD SUGAR. PT IS TYPE 1 DIABETIC AND IS NON COMPLIENT WITH INSULIN. EMS STATES "HER FAMILY SAW HER AT ABOUT 1030 THIS MORNING AND SHE WAS FINE. BUT RETURNED AT ABOUT 1200 TO FIND HER ALTERED AND ON THE GROUND". PT PREVIOUS DC FROM ICU FOR DKA. PT INCONITENT OF STOOL. IO STARTED. EKG COMPLETE. LABS DRAWN. PT CHANGED AND CLEANED.
[2020-05-27] MEDS ORDERED: LACTATED RINGERS 1,000 ML IVBOLUS ONE ×2 (12:30→13:30)
[2020-05-27 12:50] LABS: MEAN CORPUSCULAR HEMOGLOBIN 33.1 pg (27.0-34.8); MEAN PLATELET VOLUME 9.7 fL (7.4-10.4); PLATELET COUNT 534 x10^3/uL (130-400); RED BLOOD COUNT 3.15 x10^6/uL (3.82-5.3); RED CELL DISTRIBUTION WIDTH 19.4 % (9.6-15.2)
[2020-05-27 12:56] LABS: MICROSCOPIC NOT IND
[2020-05-27 12:57] LABS: ANION GAP 37 mmol/L (5-15); CALCIUM 8.7 mg/dL (8.5-10.1); CHLORIDE 90 mmol/L (98-107); CREATININE 1.73 mg/dL (0.55-1.02)
[2020-05-27 12:58] LABS: ALANINE AMINOTRANSFERASE 129 U/L (12-78); ALBUMIN 3.1 g/dL (3.4-5.0)
[2020-05-27 12:59] LABS: ALKALINE PHOSPHATASE 378 U/L (45-117); BILIRUBIN,TOTAL 0.5 mg/dL (0.2-1.0); TOTAL PROTEIN 7.3 g/dL (6.4-8.2)
--- NOTE | 2020-05-27 13:08 | NUR ---
MD BEDSIDE FOR CENTRAL LINE PLACEMENT. MD AWARE OF CURRENT VITALS. IV FLUIDS INFUSING AT THIS TIME.
[2020-05-27 13:28] LABS: MD YES
[2020-05-27] MEDS ORDERED: ACETAMINOPHEN 325 MG TABLET PO PRN (13:30)
[2020-05-27] MEDS ORDERED: REGULAR INSULIN 100 UNITS in SODIUM CHLORIDE 0.9% 99 ML IV PRN (13:30)
[2020-05-27] MEDS ORDERED: SODIUM CHLORIDE 0.9% 1,000ML IVBOLUS ONE (13:30)
[2020-05-27] MEDS ORDERED: DOCUSATE 100 MG CAPSULE PO PRN (13:30)
[2020-05-27 13:33] LABS: EOS% (MANUAL) 1 % (1-7); METAMYELOCYTES# (MANUAL) 1.21 x10^3/uL (0-0); METAMYELOCYTES% (MANUAL) 3 % (0-1); REACTIVE LYMPHS % (MANUAL) 1 % (0-0)
[2020-05-27 13:35] LABS: BAND#(MANUAL) 2.02 x10^3/uL; BANDS%(MANUAL) 5 % (0-7); MONOS#(MANUAL) 3.64 x10^3/uL (0.3-2.7); MONOS% (MANUAL) 9 % (2-9)
[2020-05-27 13:36] LABS: <PLATELET ESTIMATE> INCREASED; <PLT MORPHOLOGY> NORMAL PLT MORPH; LYMPH#(MANUAL) 11.31 x10^3/uL (1-3.4); LYMPHS% (MANUAL) 28 % (22-44); MYELOCYTES# (MANUAL) 0.81 x10^3/uL (0-0); MYELOCYTES% (MANUAL) 2 % (0-0); SEGS% (MANUAL) 51 % (42-75)
[2020-05-27 13:37] LABS: ANISOCYTOSIS 1+; POLYCHROMASIA 1+
--- NOTE | 2020-05-27 13:41 | NUR ---
NOTIFIED OF PT TEMP. WARMING MEASURES IN PLACE.
--- NOTE | 2020-05-27 13:48 | NUR ---
LEVOPHED REQUESTED FROM PHARMACY. STILL AWAITING INSULIN - REQUEST SENT AT 2843
[2020-05-27] MEDS: NOREPINEPHRINE 8 MG in SODIUM CHLORIDE 0.9% 242 ML IV PRN (14:07)
[2020-05-27] MEDS: REGULAR INSULIN 100 UNITS in SODIUM CHLORIDE 0.9% 99 ML IV PRN ×2 (14:10→20:11)
--- NOTE | 2020-05-27 14:13 | NUR ---
INSULING DRIP VERIFED WITH HARDIK ALMEIDA. ABX DELAY -PHARMACY HAS NOT SENT YET. ABX HAVE BEEN REQUESTED.
[2020-05-27] MEDS: SODIUM CHLORIDE 0.9% 1,000 ML IV SCH ×2 (14:22→19:53)
[2020-05-27 14:23] LABS: ANION GAP 38 mmol/L (5-15); CALCIUM 8.6 mg/dL (8.5-10.1); CHLORIDE 92 mmol/L (98-107); CREATININE 1.72 mg/dL (0.55-1.02)
[2020-05-27] MEDS: PIPERACILLIN/TAZO/PMX 2.25GM 50 ML IVPB SCH ×2 (14:25→22:00)
[2020-05-27 14:37] LABS: TROPONIN I < 0.015 ng/mL (0.000-0.045)
[2020-05-27] MEDS ORDERED: SODIUM BICARB 8.4%, 50ML SYRINGE ONE (15:05)
[2020-05-27] MEDS ORDERED: SODIUM BICARB 8.4%, 50ML SYRINGE IVPush ONE (15:15)
[2020-05-27] MEDS ORDERED: SODIUM BICARBONATE 1 MEQ/ML, 50ML VIAL IVPush ONE (15:30)
[2020-05-27] MEDS: HEPARIN 5,000 UNITS/ML, 1ML SQ SCH ×2 (15:48→22:30)
[2020-05-27 19:12] LABS: ANION GAP 29 mmol/L (5-15); CALCIUM 8.6 mg/dL (8.5-10.1); CHLORIDE 102 mmol/L (98-107)
[2020-05-27] MEDS ORDERED: KSCALE TO 4.5 IV SCH (19:30)
[2020-05-27] MEDS ORDERED: POTASSIUM CHLORIDE PMX 100 ML IV ONE ×2 (20:00)
[2020-05-27] MEDS ORDERED: MELATONIN 5 MG TABLET PO PRN (21:00)
[2020-05-27 21:36] LABS: ANION GAP 27 mmol/L (5-15); CALCIUM 7.9 mg/dL (8.5-10.1); CHLORIDE 110 mmol/L (98-107); CREATININE 1.82 mg/dL (0.55-1.02)
[2020-05-27] MEDS: ONDANSETRON 2MG/ML, 2ML IVPush PRN (22:49)
[2020-05-28] MEDS ORDERED: POTASSIUM CHLORIDE PMX 100 ML IV SCH
[2020-05-28] MEDS: D5%-0.45NACL+KCL 20MEQ 1,000 ML IV SCH ×2 (00:02→08:01)
[2020-05-28 00:25] LABS: ANION GAP 17 mmol/L (5-15); CALCIUM 7.9 mg/dL (8.5-10.1); CHLORIDE 114 mmol/L (98-107); CREATININE 1.67 mg/dL (0.55-1.02)
[2020-05-28] MEDS: SODIUM CHLORIDE 0.9% 1,000 ML IV SCH ×2 (01:30→06:15)
[2020-05-28] MEDS: NOREPINEPHRINE 8 MG in SODIUM CHLORIDE 0.9% 242 ML IV PRN (03:29)
[2020-05-28 04:26] LABS: BASOPHILS % (AUTO) 0 % (0-1); EOSINOPHILS % (AUTO) 0 % (1-7); LYMPHOCYTES % (AUTO) 16 % (22-44); MEAN CORPUSCULAR HEMOGLOBIN 32.8 pg (27.0-34.8); MEAN CORPUSCULAR HGB CONC 34.6 g/dL (32.4-35.8); MEAN PLATELET VOLUME 7.6 fL (7.4-10.4); MONOCYTES % (AUTO) 13 % (2-9); NEUTROPHILS % (AUTO) 71 % (42-75); PLATELET COUNT 390 x10^3/uL (130-400); RED BLOOD COUNT 2.47 x10^6/uL (3.82-5.3); RED CELL DISTRIBUTION WIDTH 17.3 % (9.6-15.2)
[2020-05-28 04:38] LABS: ALBUMIN 2.7 g/dL (3.4-5.0); ANION GAP 11 mmol/L (5-15); CALCIUM 7.7 mg/dL (8.5-10.1); CHLORIDE 114 mmol/L (98-107)
[2020-05-28 04:40] LABS: MD NO
[2020-05-28 04:44] LABS: ALANINE AMINOTRANSFERASE 86 U/L (12-78); ALKALINE PHOSPHATASE 207 U/L (45-117); BILIRUBIN,TOTAL 0.3 mg/dL (0.2-1.0); CREATININE 1.38 mg/dL (0.55-1.02)
[2020-05-28] MEDS: HEPARIN 5,000 UNITS/ML, 1ML SQ SCH (06:18)
[2020-05-28] MEDS: PIPERACILLIN/TAZO/PMX 2.25GM 50 ML IVPB SCH (06:18)
[2020-05-28] MEDS ORDERED: POTASSIUM CHLORIDE PMX 100 ML IV ONE (07:00)
[2020-05-28] MEDS ORDERED: PANTOPRAZOLE 40 MG IV IVPush SCH (07:30)
[2020-05-28 08:30] LABS: ANION GAP 7 mmol/L (5-15); CALCIUM 7.9 mg/dL (8.5-10.1); CHLORIDE 110 mmol/L (98-107); CREATININE 1.36 mg/dL (0.55-1.02)
[2020-05-28] MEDS ORDERED: DEXTROSE 4 GM TAB.CHEW PO PRN (09:00)
[2020-05-28] MEDS ORDERED: DEXTROSE 50%, 50ML SYRINGE IVPush PRN (09:00)
[2020-05-28] MEDS: SODIUM CHLORIDE FLUSH 10ML SYR IVF SCH ×2 (09:00→21:11)
[2020-05-28] MEDS ORDERED: GLUCAGON 1 MG IM PRN (09:00)
[2020-05-28] MEDS: APIXABAN 5 MG TABLET PO SCH ×2 (09:29→21:11)
[2020-05-28] MEDS: INSULIN GLARGINE 100 UNITS/ML, PEN SQ-INSULIN SCH ×2 (09:30→21:13)
[2020-05-28] MEDS: INSULIN LISPRO 100 UNITS/ML, PEN SQ-INSULIN SCH ×4 (10:44→21:13)
[2020-05-28] MEDS: PIPERACILLIN/TAZO/PMX 3.375GM 50 ML IV SCH ×3 (12:45→23:02)
[2020-05-28] MEDS ORDERED: INSULIN LISPRO 100 UNIT/ML, 3ML VIAL SQ-INSULIN ONE (18:30)
[2020-05-29] MEDS: PIPERACILLIN/TAZO/PMX 3.375GM 50 ML IV SCH ×2 (05:16→11:09)
[2020-05-29] MEDS: PANTOPRAZOLE 40MG TABLET PO SCH (05:16)
[2020-05-29 05:35] LABS: BASOPHILS % (AUTO) 1 % (0-1); EOSINOPHILS % (AUTO) 1 % (1-7); LYMPHOCYTES % (AUTO) 28 % (22-44); MEAN CORPUSCULAR HEMOGLOBIN 32.1 pg (27.0-34.8); MEAN PLATELET VOLUME 7.2 fL (7.4-10.4); MONOCYTES % (AUTO) 10 % (2-9); NEUTROPHILS % (AUTO) 60 % (42-75); PLATELET COUNT 256 x10^3/uL (130-400); RED BLOOD COUNT 2.18 x10^6/uL (3.82-5.3)
[2020-05-29 05:37] LABS: MD NO
[2020-05-29 05:48] LABS: ALBUMIN 2.4 g/dL (3.4-5.0); ANION GAP 7 mmol/L (5-15); CALCIUM 8.2 mg/dL (8.5-10.1); CHLORIDE 108 mmol/L (98-107)
[2020-05-29 05:53] LABS: ALANINE AMINOTRANSFERASE 65 U/L (12-78); ALKALINE PHOSPHATASE 179 U/L (45-117); BILIRUBIN,TOTAL 0.2 mg/dL (0.2-1.0); CREATININE 1.65 mg/dL (0.55-1.02); TOTAL PROTEIN 5.3 g/dL (6.4-8.2)
[2020-05-29] MEDS: INSULIN LISPRO 100 UNITS/ML, PEN SQ-INSULIN SCH ×7 (07:28→20:53)
[2020-05-29] MEDS: SODIUM CHLORIDE FLUSH 10ML SYR IVF SCH ×2 (08:46→20:56)
[2020-05-29] MEDS: INSULIN GLARGINE 100 UNITS/ML, PEN SQ-INSULIN SCH ×2 (08:46→20:52)
[2020-05-29 11:14] VITALS: BP 139/91
[2020-05-29 11:33] VITALS: BP 135/90
[2020-05-29 12:55] VITALS: BP 134/91
[2020-05-29 13:15] VITALS: BP 126/90
[2020-05-29] MEDS: ONDANSETRON 2MG/ML, 2ML IVPush PRN (17:50)
[2020-05-29 18:13] VITALS: BP 137/91
[2020-05-29 19:36] VITALS: BP 125/83
[2020-05-29] MEDS: APIXABAN 5 MG TABLET PO SCH (20:50)
[2020-05-30 00:56] VITALS: BP 125/82
[2020-05-30] MEDS: PANTOPRAZOLE 40MG TABLET PO SCH (05:10)
[2020-05-30 05:48] LABS: ANION GAP 6 mmol/L (5-15); BASOPHILS % (AUTO) 1 % (0-1); CALCIUM 8.1 mg/dL (8.5-10.1); CHLORIDE 110 mmol/L (98-107); EOSINOPHILS % (AUTO) 1 % (1-7); LYMPHOCYTES % (AUTO) 41 % (22-44); MEAN PLATELET VOLUME 7.2 fL (7.4-10.4); MONOCYTES % (AUTO) 12 % (2-9); NEUTROPHILS % (AUTO) 46 % (42-75); PLATELET COUNT 228 x10^3/uL (130-400); RED BLOOD COUNT 2.73 x10^6/uL (3.82-5.3); RED CELL DISTRIBUTION WIDTH 17.9 % (9.6-15.2)
[2020-05-30 05:51] LABS: MD NO
[2020-05-30 06:51] VITALS: BP 152/98
[2020-05-30] MEDS: INSULIN GLARGINE 100 UNITS/ML, PEN SQ-INSULIN SCH ×2 (07:30→20:09)
[2020-05-30] MEDS: INSULIN LISPRO 100 UNITS/ML, PEN SQ-INSULIN SCH ×7 (07:31→20:08)
[2020-05-30] MEDS: APIXABAN 5 MG TABLET PO SCH ×2 (07:32→20:21)
[2020-05-30] MEDS: SODIUM CHLORIDE FLUSH 10ML SYR IVF SCH ×2 (07:32→20:22)
[2020-05-30] MEDS: MUPIROCIN OINT 2%, 22GM TP SCH ×3 (09:56→20:23)
[2020-05-30 13:29] VITALS: BP 161/102
[2020-05-30] MEDS: LISINOPRIL 10 MG TABLET PO SCH (14:00)
[2020-05-30 15:40] VITALS: BP 135/78
[2020-05-30 18:59] VITALS: BP 142/94
[2020-05-31 00:44] VITALS: BP 125/85
[2020-05-31] MEDS: PANTOPRAZOLE 40MG TABLET PO SCH (05:49)
[2020-05-31 07:16] VITALS: BP 162/102
[2020-05-31] MEDS: INSULIN LISPRO 100 UNITS/ML, PEN SQ-INSULIN SCH ×7 (07:42→19:18)
[2020-05-31] MEDS: APIXABAN 5 MG TABLET PO SCH ×2 (08:16→20:26)
[2020-05-31] MEDS: LISINOPRIL 10 MG TABLET PO SCH (08:16)
[2020-05-31] MEDS: MUPIROCIN OINT 2%, 22GM TP SCH ×3 (08:16→20:26)
[2020-05-31] MEDS: SODIUM CHLORIDE FLUSH 10ML SYR IVF SCH ×2 (08:16→20:26)
[2020-05-31] MEDS: INSULIN GLARGINE 100 UNITS/ML, PEN SQ-INSULIN SCH (08:16)
[2020-05-31] MEDS ORDERED: INSULIN GLARGINE 100 UNITS/ML, PEN SQ-INSULIN ONE (11:00)
[2020-05-31 13:55] VITALS: BP 102/55
[2020-05-31 14:09] VITALS: BP 145/94
[2020-05-31 19:12] VITALS: BP 130/88
[2020-05-31] MEDS ORDERED: INSULIN GLARGINE 100 UNITS/ML, PEN SQ-INSULIN SCH (21:00)
[2020-06-01 00:33] VITALS: BP 115/75
[2020-06-01 03:05] LABS: BASOPHILS % (AUTO) 1 % (0-1); EOSINOPHILS % (AUTO) 1 % (1-7); LYMPHOCYTES % (AUTO) 47 % (22-44); MEAN CORPUSCULAR HEMOGLOBIN 32.3 pg (27.0-34.8); MEAN CORPUSCULAR HGB CONC 33.7 g/dL (32.4-35.8); MEAN PLATELET VOLUME 7.8 fL (7.4-10.4); MONOCYTES % (AUTO) 7 % (2-9); NEUTROPHILS % (AUTO) 44 % (42-75); PLATELET COUNT 248 x10^3/uL (130-400); RED BLOOD COUNT 3.07 x10^6/uL (3.82-5.3); RED CELL DISTRIBUTION WIDTH 16.8 % (9.6-15.2)
[2020-06-01 03:06] LABS: MD NO
[2020-06-01 03:16] LABS: ANION GAP 9 mmol/L (5-15); CALCIUM 8.2 mg/dL (8.5-10.1); CHLORIDE 109 mmol/L (98-107); CREATININE 0.94 mg/dL (0.55-1.02)
[2020-06-01] MEDS: PANTOPRAZOLE 40MG TABLET PO SCH (06:25)
[2020-06-01] MEDS: INSULIN LISPRO 100 UNITS/ML, PEN SQ-INSULIN SCH ×8 (07:20→21:39)
[2020-06-01 07:57] VITALS: BP 137/88
[2020-06-01] MEDS: MUPIROCIN OINT 2%, 22GM TP SCH ×3 (09:00→21:32)
[2020-06-01] MEDS: SODIUM CHLORIDE FLUSH 10ML SYR IVF SCH ×2 (09:09→21:32)
[2020-06-01] MEDS: INSULIN GLARGINE 100 UNITS/ML, PEN SQ-INSULIN SCH ×2 (09:09→21:38)
[2020-06-01] MEDS: LISINOPRIL 10 MG TABLET PO SCH (09:09)
[2020-06-01] MEDS: APIXABAN 5 MG TABLET PO SCH ×2 (09:09→21:31)
[2020-06-01 12:51] VITALS: BP 112/74
[2020-06-01 20:00] VITALS: BP 124/84
[2020-06-02 02:00] VITALS: BP 109/71
[2020-06-02] MEDS: PANTOPRAZOLE 40MG TABLET PO SCH (05:55)
[2020-06-02 06:18] LABS: ANION GAP 8 mmol/L (5-15); CALCIUM 8.3 mg/dL (8.5-10.1); CHLORIDE 112 mmol/L (98-107)
[2020-06-02] MEDS: APIXABAN 5 MG TABLET PO SCH ×2 (07:51→20:39)
[2020-06-02] MEDS: LISINOPRIL 10 MG TABLET PO SCH (07:51)
[2020-06-02] MEDS: INSULIN LISPRO 100 UNITS/ML, PEN SQ-INSULIN SCH ×7 (07:52→20:30)
[2020-06-02] MEDS: MUPIROCIN OINT 2%, 22GM TP SCH ×3 (07:53→20:40)
[2020-06-02] MEDS: INSULIN GLARGINE 100 UNITS/ML, PEN SQ-INSULIN SCH ×2 (07:53→20:39)
[2020-06-02] MEDS: SODIUM CHLORIDE FLUSH 10ML SYR IVF SCH ×2 (07:55→20:39)
[2020-06-02 08:26] VITALS: BP 119/75
[2020-06-02 13:38] VITALS: BP 113/76
[2020-06-02 19:59] VITALS: BP 100/63
[2020-06-03 02:12] VITALS: BP 104/66
[2020-06-03] MEDS: PANTOPRAZOLE 40MG TABLET PO SCH (06:08)
[2020-06-03 06:15] LABS: ANION GAP 7 mmol/L (5-15); CALCIUM 8.6 mg/dL (8.5-10.1); CHLORIDE 115 mmol/L (98-107); CREATININE 0.76 mg/dL (0.55-1.02)
[2020-06-03 07:14] VITALS: BP 111/73
[2020-06-03] MEDS: INSULIN LISPRO 100 UNITS/ML, PEN SQ-INSULIN SCH ×4 (07:44→11:00)
[2020-06-03] MEDS: APIXABAN 5 MG TABLET PO SCH (07:44)
[2020-06-03] MEDS: LISINOPRIL 10 MG TABLET PO SCH (07:44)
[2020-06-03] MEDS: SODIUM CHLORIDE FLUSH 10ML SYR IVF SCH (07:47)
[2020-06-03] MEDS: MUPIROCIN OINT 2%, 22GM TP SCH (07:47)
[2020-06-03] MEDS ORDERED: INSULIN GLARGINE 100 UNITS/ML, PEN SQ-INSULIN SCH ×2 (09:00→22:00)
[2020-06-03] MEDS ORDERED: LISI-167 PO (12:23)
[2020-06-03] MEDS ORDERED: INSU100I13 SQ-INSULIN ×2 (12:23)
[2020-06-03 12:50] VITALS: BP 108/70
== END 2020-06-03 14:47 | disposition home or self-care (01) | DRG 871 ==
LOC: ED 13:34 → EDIP 14:13 → CCU 14:39 → 4NW 05-29 12:15 → 3N 05-29 17:57 → DCLOUNGE 06-03 14:43
PROVIDERS: ADMIT Hospitalist; ATTEND Internal Medicine
PROC: 0T9B70Z Drainage of Bladder with Drainage Device, Via Natural or Artificial Opening (ICD-10-PCS; principal; 2020-05-27)
PROC: 30233N1 Transfusion of Nonautologous Red Blood Cells into Peripheral Vein, Percutaneous Approach (ICD-10-PCS; 2020-05-29)
DX: A41.9 Sepsis, unspecified organism (principal); E10.10 Type 1 diabetes mellitus with ketoacidosis without coma; N17.0 Acute kidney failure with tubular necrosis; E87.0 Hyperosmolality and hypernatremia; Z99.11 Dependence on respirator [ventilator] status; D50.9 Iron deficiency anemia, unspecified; D72.823 Leukemoid reaction; D75.89 Other specified diseases of blood and blood-forming organs; E10.22 Type 1 diabetes mellitus with diabetic chronic kidney disease; E10.43 Type 1 diabetes mellitus with diabetic autonomic (poly)neuropathy; E10.649 Type 1 diabetes mellitus with hypoglycemia without coma; E78.5 Hyperlipidemia, unspecified; E87.5 Hyperkalemia; I12.9 Hypertensive chronic kidney disease with stage 1 through stage 4 chronic kidney disease, or unspecified chronic kidney disease; K31.84 Gastroparesis; L02.93 Carbuncle, unspecified; N18.9 Chronic kidney disease, unspecified; Z79.01 Long term (current) use of anticoagulants; Z79.4 Long term (current) use of insulin; Z82.0 Family history of epilepsy and other diseases of the nervous system; Z83.3 Family history of diabetes mellitus; Z86.718 Personal history of other venous thrombosis and embolism; Z91.19 Patient's noncompliance with other medical treatment and regimen; Z91.14 Patient's other noncompliance with medication regimen; Z91.040 Latex allergy status; Z91.018 Allergy to other foods
CPT/HCPCS: 36415; 36600; 71045; 80048; 80053; 81003; 82533; 82803; 82947; 82962; 83605; 83690; 83735; 83930; 84100; 84145; 84484; 84703; 85014; 85018; 85025; 86850; 86900; 86923; 87040; 87081; 93005; 96360; 96361; 99291; G0378; J1644; J1815; J2405; J2543; J3480; C9113; J7030; J7050; J7120; P9016

== ENCOUNTER 2020-08-03 14:15 | Inpatient (IN) | payer MEDICAID ==
[~2020-08-03] VITALS: Ht 165.1 cm; Wt 63.5 kg
--- NOTE | 2020-08-03 14:37 | NUR ---
PT CAME IN CO NVD AND DIFFUSE ABD FOR THE LAST 3 DAYS. PT REPORTS SHES BEEN TRYING TO DRINK LIQUID BUT HAS BEEN VOMITTING IT UP. PT FOUND TO BE HYPOTENSIVE IN TRIAGE. HX OF DKA AND INTUBATIONS. PT RESTING IN [facility] CONNECTED TO MONITORING EQUIPMENT.
[2020-08-03] MEDS ORDERED: LACTATED RINGERS 1,000 ML IV ONE (15:00)
[2020-08-03] MEDS ORDERED: SODIUM CHLORIDE FLUSH 10ML SYR IVF ONE (15:00)
[2020-08-03] MEDS ORDERED: SODIUM CHLORIDE 0.9% 1,000ML IVBOLUS ONE ×2 (15:00→17:00)
[2020-08-03 15:10] LABS: O2 FLOW ROOM AIR L/min
[2020-08-03 15:15] LABS: BASOPHILS % (AUTO) 1 % (0-1); EOSINOPHILS % (AUTO) 0 % (1-7); LYMPHOCYTES % (AUTO) 25 % (22-44); MEAN CORPUSCULAR HEMOGLOBIN 30.7 pg (27.0-34.8); MEAN CORPUSCULAR HGB CONC 31.9 g/dL (32.4-35.8); MEAN PLATELET VOLUME 8.6 fL (7.4-10.4); MONOCYTES % (AUTO) 5 % (2-9); NEUTROPHILS % (AUTO) 69 % (42-75); PLATELET COUNT 313 x10^3/uL (130-400); RED BLOOD COUNT 3.47 x10^6/uL (3.82-5.3); RED CELL DISTRIBUTION WIDTH 17.9 % (9.6-15.2)
[2020-08-03 15:16] LABS: MD NO
[2020-08-03 15:18] LABS: ALANINE AMINOTRANSFERASE 159 U/L (12-78); ALBUMIN 3.4 g/dL (3.4-5.0); ANION GAP 23 mmol/L (5-15); CALCIUM 8.6 mg/dL (8.5-10.1); CHLORIDE 102 mmol/L (98-107); CREATININE 1.48 mg/dL (0.55-1.02)
[2020-08-03 15:21] LABS: ALKALINE PHOSPHATASE 388 U/L (45-117); BILIRUBIN,TOTAL 0.5 mg/dL (0.2-1.0); TOTAL PROTEIN 7.1 g/dL (6.4-8.2)
--- NOTE | 2020-08-03 15:24 | NUR ---
PT RESTING IN [facility]. IV FLUIDS INFUSING.
[2020-08-03 15:41] LABS: ACETONE, SERUM Large (80mg/dL) (Negative)
--- NOTE | 2020-08-03 16:21 | NUR ---
PT AMBULATED WITH STEADY GAIT TO RESTROOM. PROVIDED UA
[2020-08-03] MEDS ORDERED: ONDANSETRON 2MG/ML, 2ML ONE (16:27)
[2020-08-03] MEDS ORDERED: INSULIN SINGLE DOSE, ER ONE (16:28)
[2020-08-03] MEDS ORDERED: ONDANSETRON 2MG/ML, 2ML IVPush ONE (16:30)
[2020-08-03] MEDS: INSULIN REGULAR 100 UNITS/ML, 3ML VIAL SQ-INSULIN ONE ×2 (16:31→18:06)
[2020-08-03 16:32] LABS: MICROSCOPIC NOT IND
--- NOTE | 2020-08-03 16:38 | NUR ---
FINGERSTICK BLOOD GLUCOSE 261. PER MD HOLD OFF ON 8 UNITS SQ INSULIN FOR NOW. WILL BE ADMITTED TO ICU
[2020-08-03] MEDS ORDERED: ONDANSETRON 2MG/ML, 2ML IV PRN (17:00)
[2020-08-03] MEDS ORDERED: ACETAMINOPHEN 325 MG TABLET PO PRN (17:00)
[2020-08-03] MEDS ORDERED: REGULAR INSULIN 100 UNITS in SODIUM CHLORIDE 0.9% 99 ML IV PRN (17:00)
[2020-08-03] MEDS ORDERED: MORPHINE SULFATE 4 MG/ML, 1ML IVPush PRN (17:00)
--- NOTE | 2020-08-03 17:02 | NUR ---
PT REFUSED SECOND IV START
[2020-08-03] MEDS: D5%-0.45NACL+KCL 20MEQ 1,000 ML IV SCH ×2 (17:30→19:27)
[2020-08-03] MEDS: ENOXAPARIN 40 MG/0.4 ML SQ SCH (17:30)
[2020-08-03] MEDS: SODIUM CHLORIDE 0.9% 1,000 ML IV SCH ×2 (17:48→22:00)
[2020-08-04] MEDS: SODIUM CHLORIDE 0.9% 1,000 ML IV SCH ×3 (03:00→11:40)
[2020-08-04] MEDS: D5%-0.45NACL+KCL 20MEQ 1,000 ML IV SCH (03:40)
[2020-08-04 04:49] LABS: BASOPHILS % (AUTO) 1 % (0-1); EOSINOPHILS % (AUTO) 1 % (1-7); LYMPHOCYTES % (AUTO) 33 % (22-44); MEAN CORPUSCULAR HEMOGLOBIN 31.6 pg (27.0-34.8); MEAN CORPUSCULAR HGB CONC 33.4 g/dL (32.4-35.8); MEAN PLATELET VOLUME 7.9 fL (7.4-10.4); MONOCYTES % (AUTO) 8 % (2-9); NEUTROPHILS % (AUTO) 57 % (42-75); PLATELET COUNT 209 x10^3/uL (130-400); RED BLOOD COUNT 2.75 x10^6/uL (3.82-5.3); RED CELL DISTRIBUTION WIDTH 17.8 % (9.6-15.2)
[2020-08-04 04:50] LABS: MD NO
[2020-08-04 05:02] LABS: ALANINE AMINOTRANSFERASE 127 U/L (12-78); ALBUMIN 2.7 g/dL (3.4-5.0); ANION GAP 8 mmol/L (5-15); CALCIUM 7.1 mg/dL (8.5-10.1); CHLORIDE 115 mmol/L (98-107); CREATININE 0.89 mg/dL (0.55-1.02)
[2020-08-04 05:04] LABS: ALKALINE PHOSPHATASE 295 U/L (45-117); BILIRUBIN,TOTAL 0.3 mg/dL (0.2-1.0); TOTAL PROTEIN 5.6 g/dL (6.4-8.2)
[2020-08-04] MEDS: INSULIN GLARGINE 100 UNITS/ML, PEN SQ-INSULIN SCH ×2 (09:57→20:34)
[2020-08-04] MEDS ORDERED: DEXTROSE 4 GM TAB.CHEW PO PRN (16:30)
[2020-08-04] MEDS ORDERED: MAGNESIUM SULFATE PMX 2GM/50ML 50 ML IV ONE (16:30)
[2020-08-04] MEDS ORDERED: GLUCAGON 1 MG IM PRN (16:30)
[2020-08-04] MEDS ORDERED: DEXTROSE 50%, 50ML SYRINGE IVPush PRN (16:30)
[2020-08-04] MEDS: POTASSIUM ACID PHOSPHATE 500 MG TABLET.SOL PO SCH ×2 (16:50→22:38)
[2020-08-04] MEDS: POTASSIUM CHLORIDE 20 MEQ TAB.ER.PRT PO SCH ×2 (16:50→22:38)
[2020-08-04] MEDS: ENOXAPARIN 40 MG/0.4 ML SQ SCH (17:30)
[2020-08-04 19:35] VITALS: BP 144/96
[2020-08-04] MEDS: INSULIN LISPRO 100 UNITS/ML, PEN SQ-INSULIN SCH (20:33)
[2020-08-04] MEDS: MAGNESIUM OXIDE 400 MG TABLET PO SCH (20:34)
[2020-08-04] MEDS: SODIUM CHLORIDE FLUSH 10ML SYR IVF SCH (20:34)
[2020-08-05 00:10] VITALS: BP 122/82
[2020-08-05] MEDS ORDERED: INSULIN LISPRO 100 UNITS/ML, PEN SQ-INSULIN ONE ×4 (01:00→15:00)
[2020-08-05] MEDS: POTASSIUM CHLORIDE 20 MEQ TAB.ER.PRT PO SCH ×2 (04:46→09:53)
[2020-08-05] MEDS: POTASSIUM ACID PHOSPHATE 500 MG TABLET.SOL PO SCH ×4 (04:46→21:58)
[2020-08-05 05:14] LABS: BASOPHILS % (AUTO) 2 % (0-1); EOSINOPHILS % (AUTO) 1 % (1-7); LYMPHOCYTES % (AUTO) 44 % (22-44); MEAN CORPUSCULAR HEMOGLOBIN 30.9 pg (27.0-34.8); MEAN CORPUSCULAR HGB CONC 32.6 g/dL (32.4-35.8); MEAN PLATELET VOLUME 7.7 fL (7.4-10.4); MONOCYTES % (AUTO) 11 % (2-9); NEUTROPHILS % (AUTO) 42 % (42-75); PLATELET COUNT 194 x10^3/uL (130-400); RED CELL DISTRIBUTION WIDTH 18.3 % (9.6-15.2)
[2020-08-05 05:23] LABS: CHLORIDE 111 mmol/L (98-107); MD NO
[2020-08-05 05:32] LABS: ALANINE AMINOTRANSFERASE 233 U/L (12-78); ALBUMIN 2.7 g/dL (3.4-5.0); ALKALINE PHOSPHATASE 456 U/L (45-117); ANION GAP 8 mmol/L (5-15); BILIRUBIN,TOTAL 0.3 mg/dL (0.2-1.0); CREATININE 0.86 mg/dL (0.55-1.02); TOTAL PROTEIN 5.7 g/dL (6.4-8.2)
[2020-08-05 06:59] VITALS: BP 125/84
[2020-08-05] MEDS: SODIUM CHLORIDE 0.9% 1,000 ML IV SCH (07:00)
[2020-08-05] MEDS: FERROUS SULFATE 325 MG TABLET PO SCH (07:15)
[2020-08-05] MEDS: MAGNESIUM OXIDE 400 MG TABLET PO SCH ×2 (07:15→21:58)
[2020-08-05] MEDS: INSULIN LISPRO 100 UNITS/ML, PEN SQ-INSULIN SCH ×4 (07:16→21:59)
[2020-08-05] MEDS: SODIUM CHLORIDE FLUSH 10ML SYR IVF SCH ×2 (07:17→21:00)
[2020-08-05] MEDS ORDERED: INSULIN GLARGINE 100 UNITS/ML, PEN SQ-INSULIN SCH ×2 (09:00→21:00)
[2020-08-05 12:30] VITALS: BP 150/98
[2020-08-05] MEDS ORDERED: SODIUM CHLORIDE 0.9% 1,000ML IVBOLUS ONE (15:00)
[2020-08-05] MEDS ORDERED: INSULIN LISPRO 100 UNITS/ML, PEN SQ-INSULIN SCH ×2 (16:00→21:00)
[2020-08-05] MEDS: ENOXAPARIN 40 MG/0.4 ML SQ SCH (17:14)
[2020-08-05 18:47] VITALS: BP 158/102
[2020-08-05] MEDS: INSULIN GLARGINE 100 UNITS/ML, PEN SQ-INSULIN SCH (21:58)
[2020-08-06 00:23] VITALS: BP 122/84
[2020-08-06] MEDS: POTASSIUM ACID PHOSPHATE 500 MG TABLET.SOL PO SCH (04:46)
[2020-08-06 05:23] LABS: BASOPHILS % (AUTO) 2 % (0-1); EOSINOPHILS % (AUTO) 1 % (1-7); LYMPHOCYTES % (AUTO) 53 % (22-44); MEAN CORPUSCULAR HEMOGLOBIN 31.3 pg (27.0-34.8); MEAN CORPUSCULAR HGB CONC 33.4 g/dL (32.4-35.8); MEAN PLATELET VOLUME 8.2 fL (7.4-10.4); MONOCYTES % (AUTO) 9 % (2-9); NEUTROPHILS % (AUTO) 35 % (42-75); PLATELET COUNT 217 x10^3/uL (130-400); RED CELL DISTRIBUTION WIDTH 18.1 % (9.6-15.2)
[2020-08-06 05:31] LABS: CHLORIDE 109 mmol/L (98-107)
[2020-08-06 05:50] LABS: ALANINE AMINOTRANSFERASE 244 U/L (12-78); ALBUMIN 2.9 g/dL (3.4-5.0); ALKALINE PHOSPHATASE 494 U/L (45-117); ANION GAP 9 mmol/L (5-15); BILIRUBIN,TOTAL 0.4 mg/dL (0.2-1.0); TOTAL PROTEIN 6.2 g/dL (6.4-8.2)
[2020-08-06 06:12] LABS: MD SCAN
[2020-08-06 06:26] VITALS: BP 18/80
[2020-08-06] MEDS: INSULIN LISPRO 100 UNITS/ML, PEN SQ-INSULIN SCH ×4 (07:00→20:46)
[2020-08-06] MEDS: SODIUM CHLORIDE FLUSH 10ML SYR IVF SCH ×2 (09:00→20:45)
[2020-08-06] MEDS: FERROUS SULFATE 325 MG TABLET PO SCH (09:14)
[2020-08-06] MEDS: MAGNESIUM OXIDE 400 MG TABLET PO SCH ×2 (09:14→20:45)
[2020-08-06] MEDS: SODIUM CHLORIDE 0.9% 1,000 ML IV SCH ×2 (09:15→16:14)
[2020-08-06] MEDS: INSULIN GLARGINE 100 UNITS/ML, PEN SQ-INSULIN SCH ×2 (09:15→20:47)
[2020-08-06 13:47] VITALS: BP 135/89
[2020-08-06] MEDS: ENOXAPARIN 40 MG/0.4 ML SQ SCH (16:14)
[2020-08-06 18:39] VITALS: BP 137/91
[2020-08-07 00:26] VITALS: BP 102/61
[2020-08-07 05:28] LABS: BASOPHILS % (AUTO) 2 % (0-1); EOSINOPHILS % (AUTO) 1 % (1-7); LYMPHOCYTES % (AUTO) 45 % (22-44); MD NO; MEAN CORPUSCULAR HEMOGLOBIN 31.3 pg (27.0-34.8); MEAN CORPUSCULAR HGB CONC 32.8 g/dL (32.4-35.8); MEAN PLATELET VOLUME 7.9 fL (7.4-10.4); MONOCYTES % (AUTO) 10 % (2-9); NEUTROPHILS % (AUTO) 43 % (42-75); PLATELET COUNT 187 x10^3/uL (130-400); RED BLOOD COUNT 3.18 x10^6/uL (3.82-5.3); RED CELL DISTRIBUTION WIDTH 18.2 % (9.6-15.2)
[2020-08-07 05:42] LABS: CHLORIDE 112 mmol/L (98-107)
[2020-08-07 05:52] LABS: ALANINE AMINOTRANSFERASE 172 U/L (12-78); ALBUMIN 2.6 g/dL (3.4-5.0); ALKALINE PHOSPHATASE 364 U/L (45-117); ANION GAP 8 mmol/L (5-15); BILIRUBIN,TOTAL 0.2 mg/dL (0.2-1.0); CALCIUM 8.2 mg/dL (8.5-10.1); CREATININE 0.75 mg/dL (0.55-1.02); TOTAL PROTEIN 5.5 g/dL (6.4-8.2)
[2020-08-07] MEDS: INSULIN LISPRO 100 UNITS/ML, PEN SQ-INSULIN SCH ×4 (07:19→21:19)
[2020-08-07 07:35] VITALS: BP 122/84
[2020-08-07] MEDS: INSULIN GLARGINE 100 UNITS/ML, PEN SQ-INSULIN SCH ×2 (08:40→21:19)
[2020-08-07] MEDS: FERROUS SULFATE 325 MG TABLET PO SCH (08:40)
[2020-08-07] MEDS: MAGNESIUM OXIDE 400 MG TABLET PO SCH ×2 (08:40→21:18)
[2020-08-07] MEDS: SODIUM CHLORIDE FLUSH 10ML SYR IVF SCH ×2 (08:41→21:18)
[2020-08-07 12:03] VITALS: BP 154/100
[2020-08-07] MEDS: ENOXAPARIN 40 MG/0.4 ML SQ SCH (16:48)
[2020-08-07 19:08] VITALS: BP 126/85
[2020-08-08 00:28] VITALS: BP 100/64
[2020-08-08 06:16] LABS: BASOPHILS % (AUTO) 2 % (0-1); EOSINOPHILS % (AUTO) 1 % (1-7); LYMPHOCYTES % (AUTO) 48 % (22-44); MEAN CORPUSCULAR HEMOGLOBIN 31.5 pg (27.0-34.8); MEAN CORPUSCULAR HGB CONC 32.2 g/dL (32.4-35.8); MEAN PLATELET VOLUME 8.7 fL (7.4-10.4); MONOCYTES % (AUTO) 10 % (2-9); NEUTROPHILS % (AUTO) 38 % (42-75); PLATELET COUNT 281 x10^3/uL (130-400); RED BLOOD COUNT 3.72 x10^6/uL (3.82-5.3)
[2020-08-08 06:17] LABS: MD NO
[2020-08-08 06:27] LABS: ANION GAP 8 mmol/L (5-15); CALCIUM 8.6 mg/dL (8.5-10.1); CHLORIDE 109 mmol/L (98-107); CREATININE 0.75 mg/dL (0.55-1.02)
[2020-08-08] MEDS: INSULIN GLARGINE 100 UNITS/ML, PEN SQ-INSULIN SCH ×2 (07:00→21:51)
[2020-08-08 07:31] VITALS: BP 123/85
[2020-08-08] MEDS: FERROUS SULFATE 325 MG TABLET PO SCH (07:55)
[2020-08-08] MEDS: MAGNESIUM OXIDE 400 MG TABLET PO SCH ×2 (07:55→20:52)
[2020-08-08] MEDS: INSULIN LISPRO 100 UNITS/ML, PEN SQ-INSULIN SCH ×4 (07:56→21:00)
[2020-08-08] MEDS: SODIUM CHLORIDE FLUSH 10ML SYR IVF SCH ×2 (07:58→20:52)
[2020-08-08 13:49] VITALS: BP 109/73
[2020-08-08] MEDS: ENOXAPARIN 40 MG/0.4 ML SQ SCH (17:13)
[2020-08-08 20:00] VITALS: BP 117/78
[2020-08-09 01:15] VITALS: BP 100/64
[2020-08-09 06:09] LABS: BASOPHILS % (AUTO) 2 % (0-1); EOSINOPHILS % (AUTO) 2 % (1-7); LYMPHOCYTES % (AUTO) 47 % (22-44); MEAN CORPUSCULAR HEMOGLOBIN 31.7 pg (27.0-34.8); MEAN CORPUSCULAR HGB CONC 32.5 g/dL (32.4-35.8); MEAN PLATELET VOLUME 8.6 fL (7.4-10.4); MONOCYTES % (AUTO) 10 % (2-9); NEUTROPHILS % (AUTO) 39 % (42-75); PLATELET COUNT 267 x10^3/uL (130-400); RED BLOOD COUNT 3.32 x10^6/uL (3.82-5.3); RED CELL DISTRIBUTION WIDTH 19.1 % (9.6-15.2)
[2020-08-09 06:12] LABS: MD NO
[2020-08-09 06:15] LABS: CHLORIDE 112 mmol/L (98-107)
[2020-08-09 06:26] LABS: ALANINE AMINOTRANSFERASE 144 U/L (12-78); ALBUMIN 2.8 g/dL (3.4-5.0); ALKALINE PHOSPHATASE 302 U/L (45-117); ANION GAP 6 mmol/L (5-15); BILIRUBIN,TOTAL 0.2 mg/dL (0.2-1.0); CALCIUM 8.4 mg/dL (8.5-10.1); TOTAL PROTEIN 6.1 g/dL (6.4-8.2)
[2020-08-09 06:57] VITALS: BP 121/83
[2020-08-09] MEDS: MAGNESIUM OXIDE 400 MG TABLET PO SCH ×2 (08:14→21:22)
[2020-08-09] MEDS: FERROUS SULFATE 325 MG TABLET PO SCH (08:14)
[2020-08-09] MEDS: INSULIN LISPRO 100 UNITS/ML, PEN SQ-INSULIN SCH ×4 (08:15→21:00)
[2020-08-09] MEDS: INSULIN GLARGINE 100 UNITS/ML, PEN SQ-INSULIN SCH ×2 (08:16→21:33)
[2020-08-09] MEDS: SODIUM CHLORIDE FLUSH 10ML SYR IVF SCH ×2 (08:16→21:26)
[2020-08-09 12:54] VITALS: BP 100/74
[2020-08-09] MEDS ORDERED: CYANOCOBALAMIN 1,000 MCG/ML, 1ML IM ONE (15:30)
[2020-08-09] MEDS: ENOXAPARIN 40 MG/0.4 ML SQ SCH (16:43)
[2020-08-09] MEDS: ASCORBIC ACID 500 MG TABLET PO SCH (17:18)
[2020-08-09 19:30] VITALS: BP 137/89
[2020-08-10 01:30] VITALS: BP 124/86
[2020-08-10 06:15] VITALS: BP 131/92
[2020-08-10] MEDS: FERROUS SULFATE 325 MG TABLET PO SCH (08:49)
[2020-08-10] MEDS: ASCORBIC ACID 500 MG TABLET PO SCH (08:49)
[2020-08-10] MEDS: INSULIN LISPRO 100 UNITS/ML, PEN SQ-INSULIN SCH ×2 (08:49→11:44)
[2020-08-10] MEDS: MAGNESIUM OXIDE 400 MG TABLET PO SCH (08:49)
[2020-08-10] MEDS: INSULIN GLARGINE 100 UNITS/ML, PEN SQ-INSULIN SCH (08:50)
[2020-08-10] MEDS: SODIUM CHLORIDE FLUSH 10ML SYR IVF SCH (09:00)
[2020-08-10] MEDS ORDERED: ZINC SULFATE 220 MG CAPSULE PO SCH (09:00)
[2020-08-10] MEDS ORDERED: MULTIVITS,STRESS FORMULA 1 TABLET PO SCH (09:00)
[2020-08-10] MEDS ORDERED: CHOLECALCIFEROL 5,000u TAB PO SCH (09:00)
[2020-08-10 12:00] VITALS: BP 113/75
== END 2020-08-10 14:55 | disposition home or self-care (01) | DRG 637 ==
LOC: ED 14:41 → EDIP 16:30 → SUATTDRO 16:30 → CCU 17:24 → 3N 08-04 17:35 → DCLOUNGE 08-10 14:54
PROVIDERS: ADMIT Internal Medicine; ATTEND Family Medicine
DX: E10.10 Type 1 diabetes mellitus with ketoacidosis without coma (principal); N17.0 Acute kidney failure with tubular necrosis; E87.1 Hypo-osmolality and hyponatremia; I82.501 Chronic embolism and thrombosis of unspecified deep veins of right lower extremity; Z99.11 Dependence on respirator [ventilator] status; D75.89 Other specified diseases of blood and blood-forming organs; D63.8 Anemia in other chronic diseases classified elsewhere; E55.9 Vitamin D deficiency, unspecified; E10.22 Type 1 diabetes mellitus with diabetic chronic kidney disease; E10.43 Type 1 diabetes mellitus with diabetic autonomic (poly)neuropathy; K31.84 Gastroparesis; E78.5 Hyperlipidemia, unspecified; E86.0 Dehydration; F12.90 Cannabis use, unspecified, uncomplicated; K82.8 Other specified diseases of gallbladder; I95.9 Hypotension, unspecified; R00.0 Tachycardia, unspecified; R62.50 Unspecified lack of expected normal physiological development in childhood; I12.9 Hypertensive chronic kidney disease with stage 1 through stage 4 chronic kidney disease, or unspecified chronic kidney disease; N18.9 Chronic kidney disease, unspecified; R74.01 Elevation of levels of liver transaminase levels; R79.89 Other specified abnormal findings of blood chemistry; Z79.01 Long term (current) use of anticoagulants; Z79.4 Long term (current) use of insulin; Z82.0 Family history of epilepsy and other diseases of the nervous system; Z83.3 Family history of diabetes mellitus; Z91.14 Patient's other noncompliance with medication regimen; Z91.040 Latex allergy status
CPT/HCPCS: 36415; 80048; 80053; 81003; 82010; 82803; 82947; 82962; 83690; 83735; 84100; 84703; 85025; 87081; 96361; 96374; G0378; J2405; J1815; J3420; J3475; J3480; J7030; J7120

== ENCOUNTER 2020-08-18 14:41 | Emergency (ER) | payer MEDICAID ==
[~2020-08-18] VITALS: Ht 165.1 cm; Wt 57.6 kg
[2020-08-18] MEDS ORDERED: SODIUM CHLORIDE 0.9% 1,000ML IVBOLUS ONE (15:00)
[2020-08-18 15:53] LABS: ALKALINE PHOSPHATASE 500 U/L (45-117); BILIRUBIN,TOTAL 0.5 mg/dL (0.2-1.0); TOTAL PROTEIN 6.8 g/dL (6.4-8.2)
[2020-08-18 15:57] LABS: BASOPHILS % (AUTO) 1 % (0-1); EOSINOPHILS % (AUTO) 0 % (1-7); LYMPHOCYTES % (AUTO) 30 % (22-44); MEAN CORPUSCULAR HEMOGLOBIN 32.3 pg (27.0-34.8); MEAN CORPUSCULAR HGB CONC 33.2 g/dL (32.4-35.8); MEAN PLATELET VOLUME 7.8 fL (7.4-10.4); MONOCYTES % (AUTO) 4 % (2-9); NEUTROPHILS % (AUTO) 65 % (42-75); PLATELET COUNT 160 x10^3/uL (130-400); RED BLOOD COUNT 3.47 x10^6/uL (3.82-5.3); RED CELL DISTRIBUTION WIDTH 19.4 % (9.6-15.2)
[2020-08-18 16:00] LABS: ALANINE AMINOTRANSFERASE 331 U/L (12-78); ALBUMIN 3.3 g/dL (3.4-5.0); ANION GAP 10 mmol/L (5-15); CALCIUM 8.7 mg/dL (8.5-10.1); CHLORIDE 98 mmol/L (98-107); CREATININE 0.91 mg/dL (0.55-1.02)
[2020-08-18 16:01] LABS: ACETONE, SERUM Trace (Negative)
[2020-08-18 16:02] LABS: MD NO
[2020-08-18 17:17] LABS: MICROSCOPIC NOT IND
[2020-08-18] MEDS ORDERED: MAALOX/HYOSCYAMINE/LIDOCAINE 45 ML BTL ONE (17:28)
[2020-08-18] MEDS ORDERED: MAALOX/HYOSCYAMINE/LIDOCAINE 45 ML BTL PO ONE (17:30)
--- NOTE | 2020-08-18 17:53 | NUR ---
PT US COMPLETED. PT REPORTS SOME RELIEF FROM ABD PAIN WITH PO MEDS ADMINISTERED PER EMAR.
--- NOTE | 2020-08-18 18:00 | NUR ---
DISCUSSION WITH ERMD REGARDING GLUCOMETER READING. PT SITTING UP IN BED, NAD NOTED AT THIS TIME.
--- NOTE | 2020-08-18 18:09 | NUR ---
BG OVER 450 PER HOSPITAL GLUCOMETER. ORDER PLACED FOR CBC BY LAB.
[2020-08-18 18:26] LABS: BASOPHILS % (AUTO) 1 % (0-1); EOSINOPHILS % (AUTO) 1 % (1-7); LYMPHOCYTES % (AUTO) 34 % (22-44); MEAN CORPUSCULAR HEMOGLOBIN 32.5 pg (27.0-34.8); MEAN PLATELET VOLUME 7.1 fL (7.4-10.4); MONOCYTES % (AUTO) 4 % (2-9); NEUTROPHILS % (AUTO) 60 % (42-75); PLATELET COUNT 124 x10^3/uL (130-400); RED BLOOD COUNT 3.22 x10^6/uL (3.82-5.3); RED CELL DISTRIBUTION WIDTH 19.4 % (9.6-15.2)
[2020-08-18] MEDS ORDERED: INSULIN REGULAR 100 UNITS/ML, 3ML VIAL SQ-INSULIN SCH (18:30)
[2020-08-18 18:49] LABS: MD SCAN
--- NOTE | 2020-08-18 19:01 | NUR ---
PT MEDICATED PER EMAR. REPORT TO ELLE MOYER.
[2020-08-18 19:59] VITALS: BP 120/78
--- NOTE | 2020-08-18 19:59 | NUR ---
PATIENT PROVIDED WITH CRACKERS AND ICE WATER. DISCHARGED WITH INSTRUCTION. VERBALIZED UNDERSTANDING.
== END 2020-08-18 20:02 | disposition home or self-care (01) ==
LOC: ED 16:37
DX: K80.50 Calculus of bile duct without cholangitis or cholecystitis without obstruction (principal); R10.84 Generalized abdominal pain; R94.5 Abnormal results of liver function studies; I10 Essential (primary) hypertension; E11.65 Type 2 diabetes mellitus with hyperglycemia; Z87.891 Personal history of nicotine dependence
CPT/HCPCS: 36415; 73564; 76700; 80053; 81003; 82010; 82800; 82962; 83690; 83735; 84100; 85025; 93005; 96360; 99285; J7030

== ENCOUNTER 2020-09-17 16:00 | Emergency (ER) | payer MEDICAID ==
[~2020-09-17] VITALS: Ht 165.1 cm; Wt 80.0 kg
[~2020-09-17 16:00] MED LIST changes: +GABA300C PO
[2020-09-17 16:58] LABS: BASOPHILS % (AUTO) 1 % (0-1); EOSINOPHILS % (AUTO) 1 % (1-7); LYMPHOCYTES % (AUTO) 20 % (22-44); MEAN CORPUSCULAR HEMOGLOBIN 31.9 pg (27.0-34.8); MEAN CORPUSCULAR HGB CONC 32.4 g/dL (32.4-35.8); MEAN PLATELET VOLUME 7.8 fL (7.4-10.4); MONOCYTES % (AUTO) 7 % (2-9); NEUTROPHILS % (AUTO) 71 % (42-75); PLATELET COUNT 491 x10^3/uL (130-400)
[2020-09-17 17:01] LABS: ALBUMIN 3.2 g/dL (3.4-5.0); ANION GAP 10 mmol/L (5-15); CALCIUM 8.7 mg/dL (8.5-10.1); CHLORIDE 92 mmol/L (98-107)
--- NOTE | 2020-09-17 17:22 | NUR ---
Appears well. "I vomited once this am and my left foot continue to really bother me." Left foot in immobilizing aplint denies wounds or trauma fsbs: "high" in triage PT TO BED VIA WHEEL CHAIR. PT REFUSING TO WALK. POSTIONED TO COMFORT IN BED. VSSofía. FRANTZ. DR. OREILLY TO BEDSIDE FOR EVALUATION.
[2020-09-17 17:48] LABS: ACETONE, SERUM Moderate(40mg/dL) (Negative)
[2020-09-17] MEDS ORDERED: ONDANSETRON ODT 4 MG PO ONE (18:00)
[2020-09-17] MEDS ORDERED: INSULIN REGULAR 100 UNITS/ML, 3ML VIAL SQ-INSULIN ONE (18:18)
[2020-09-17] MEDS ORDERED: ONDANSETRON ODT 4 MG ONE (18:23)
[2020-09-17] MEDS ORDERED: INSULIN LISPRO 100 UNITS/ML, PEN ONE (18:33)
--- NOTE | 2020-09-17 18:50 | NUR ---
REPORT RECIVED FROM ELLE BLUNT. PT AMBULATED WITHOUT ASSISTANCE TO RESTROOM
[2020-09-17 18:58] VITALS: BP 150/101
--- NOTE | 2020-09-17 19:31 | NUR ---
Patient given discharge instructions and they have confirmed that they understand the instructions. Patient ambulatory with steady gait. Wound care done by previous rn. dressing intact.
== END 2020-09-17 19:44 | disposition home or self-care (01) ==
LOC: ED 18:08
DX: M21.372 Foot drop, left foot (principal); E11.65 Type 2 diabetes mellitus with hyperglycemia; I10 Essential (primary) hypertension; Z87.891 Personal history of nicotine dependence
CPT/HCPCS: 36415; 73590; 73630; 80048; 82010; 82040; 82803; 82962; 85025; 99284; J1815; Q0162

== ENCOUNTER 2020-10-11 19:18 | Emergency (ER) | payer MEDICAID ==
[~2020-10-11] VITALS: Ht 165.1 cm; Wt 50.0 kg
--- NOTE | 2020-10-11 19:45 | NUR ---
pt to room from lobby
--- NOTE | 2020-10-11 19:57 | NUR ---
PT STATES SHE WAS JUST AT [facility] YESTERDAY AND WAS DISCHARGED WITH A PORT PLACED. PT STATES UNABLE TO ACCESS PORT AT THIS TIME. UNABLE TO GET PIV, ERP AWARE. STATES WE WILL GET RECORDS FROM [facility], LABS AND PO MEDICATIONS TO START OUT WITH.
[2020-10-11] MEDS ORDERED: ONDANSETRON ODT 4 MG ONE (20:01)
[2020-10-11 20:30] LABS: BASOPHILS % (AUTO) 1 % (0-1); EOSINOPHILS % (AUTO) 0 % (1-7); LYMPHOCYTES % (AUTO) 26 % (22-44); MEAN CORPUSCULAR HEMOGLOBIN 29.6 pg (27.0-34.8); MEAN CORPUSCULAR HGB CONC 31.4 g/dL (32.4-35.8); MEAN PLATELET VOLUME 8.1 fL (7.4-10.4); MONOCYTES % (AUTO) 9 % (2-9); NEUTROPHILS % (AUTO) 64 % (42-75); PLATELET COUNT 249 x10^3/uL (130-400); RED BLOOD COUNT 3.16 x10^6/uL (3.82-5.3); RED CELL DISTRIBUTION WIDTH 17.2 % (9.6-15.2)
[2020-10-11] MEDS ORDERED: SODIUM CHLORIDE 0.9% 1,000ML IVBOLUS ONE ×2 (20:30→22:30)
[2020-10-11] MEDS ORDERED: ONDANSETRON ODT 4 MG PO ONE (20:30)
[2020-10-11 20:42] LABS: ANION GAP 10 mmol/L (5-15); CALCIUM 8.4 mg/dL (8.5-10.1); CHLORIDE 89 mmol/L (98-107)
[2020-10-11 20:48] LABS: ALANINE AMINOTRANSFERASE 108 U/L (12-78); ALKALINE PHOSPHATASE 261 U/L (45-117); BILIRUBIN,TOTAL 0.6 mg/dL (0.2-1.0); CREATININE 1.15 mg/dL (0.55-1.02); TOTAL PROTEIN 6.6 g/dL (6.4-8.2)
[2020-10-11 20:57] LABS: ACETONE, SERUM Large (80mg/dL) (Negative)
[2020-10-11] MEDS ORDERED: SODIUM CHLORIDE FLUSH 10ML SYR IVF ONE (21:00)
--- NOTE | 2020-10-11 21:11 | NUR ---
REPORT FROM TOMI ALMEIDA
--- NOTE | 2020-10-11 21:25 | NUR ---
PT HARD IV STICK. 24 GUAGE IN LEFT WRIST.
--- NOTE | 2020-10-11 21:32 | NUR ---
PT REQUESTING FRESH SHEETS, STATED SHE COULDN'T "HOLD MY BLADDER SO I WET THE BED". PT WAS GIVEN ICE PACK FEW MIN BEFORE HAND AND PT DID NOT REQUEST TO USE RESTROOM.
--- NOTE | 2020-10-11 21:55 | NUR ---
BERNABE RN: BLANKETS PROVIDED REQUESTED, PT REMINDED THAT SHE NEEDS TO PROVIDE A URINE SAMPLE.
[2020-10-11] MEDS ORDERED: INSULIN SINGLE DOSE, ER ONE ×2 (22:28→23:56)
[2020-10-11] MEDS ORDERED: INSULIN REGULAR 100 UNITS/ML, 3ML VIAL IVPush ONE (22:30)
--- NOTE | 2020-10-11 22:39 | NUR ---
PT UP TO BSC, URINATED 800 MLS OF VERY CLEAR URINE
--- NOTE | 2020-10-11 22:39 | NUR ---
UA COLLECTED AND SENT TO LAB
[2020-10-12] MEDS ORDERED: INSULIN REGULAR 100 UNITS/ML, 3ML VIAL IVPush ONE
--- NOTE | 2020-10-12 00:20 | NUR ---
PT UP TO USE BSC. INDEPENDENT WITH BSC
[2020-10-12 00:21] LABS: MICROSCOPIC NOT IND
[2020-10-12] MEDS ORDERED: KETOROLAC 30 MG/1 ML ONE (00:28)
[2020-10-12] MEDS ORDERED: KETOROLAC 30 MG/1 ML IVPush ONE (00:30)
--- NOTE | 2020-10-12 00:32 | NUR ---
DR FLAHERTY AT BEDSIDE FOR UPDATE ON POC. 2 L NS INFUSING THROUGH 24 GAUGE, WILL RECHECK BMP AFTER 2 L IS FINISHED. PT C/O FOOT PAIN, TORADOL ORDERED.
[2020-10-12 02:04] LABS: ANION GAP 9 mmol/L (5-15); CALCIUM 8.6 mg/dL (8.5-10.1); CHLORIDE 99 mmol/L (98-107); CREATININE 0.92 mg/dL (0.55-1.02)
[2020-10-12 02:30] VITALS: BP 149/95
== END 2020-10-12 02:56 | disposition home or self-care (01) ==
LOC: ED 20:29 → INTOOBSV 22:45 → UNDOADMOB 22:45 → 3N 22:45 → ED 10-12 02:56
DX: R10.84 Generalized abdominal pain (principal); R11.2 Nausea with vomiting, unspecified; R42 Dizziness and giddiness; E86.0 Dehydration; E11.65 Type 2 diabetes mellitus with hyperglycemia; E11.10 Type 2 diabetes mellitus with ketoacidosis without coma; I10 Essential (primary) hypertension; Z72.9 Problem related to lifestyle, unspecified
CPT/HCPCS: 36415; 80048; 80053; 81003; 82010; 82800; 82962; 84703; 85025; 93005; 96361; 96374; 96375; 96376; 99285; J1815; J1885; J7030; Q0162

== ENCOUNTER 2020-11-21 16:44 | Inpatient (IN) | payer MEDICAID ==
[~2020-11-21] VITALS: Ht 165.1 cm; Wt 60.9 kg
[2020-11-21] MEDS ORDERED: SODIUM CHLORIDE 0.9% 1,000ML IVBOLUS ONE (17:30)
[2020-11-21 17:37] LABS: PH, VENOUS 7.394 pH (7.320-7.420)
[2020-11-21 17:40] LABS: BASOPHILS % (AUTO) 1 % (0-1); EOSINOPHILS % (AUTO) 1 % (1-7); LYMPHOCYTES % (AUTO) 24 % (22-44); MEAN CORPUSCULAR HEMOGLOBIN 29.2 pg (27.0-34.8); MEAN CORPUSCULAR HGB CONC 30.1 g/dL (32.4-35.8); MEAN PLATELET VOLUME 9.1 fL (7.4-10.4); MONOCYTES % (AUTO) 9 % (2-9); NEUTROPHILS % (AUTO) 65 % (42-75); PLATELET COUNT 157 x10^3/uL (130-400); RED BLOOD COUNT 3.01 x10^6/uL (3.82-5.3); RED CELL DISTRIBUTION WIDTH 16.3 % (9.6-15.2)
[2020-11-21 17:43] LABS: MICROSCOPIC NOT IND
[2020-11-21 17:45] LABS: ACETONE, SERUM Large (80mg/dL) (Negative)
[2020-11-21 17:50] LABS: ALANINE AMINOTRANSFERASE 297 U/L (12-78); ALBUMIN 2.2 g/dL (3.4-5.0); CALCIUM 7.5 mg/dL (8.5-10.1); CHLORIDE 83 mmol/L (98-107)
[2020-11-21 17:52] LABS: ALKALINE PHOSPHATASE 459 U/L (45-117); BILIRUBIN,TOTAL 0.6 mg/dL (0.2-1.0); CREATININE 1.02 mg/dL (0.55-1.02); TOTAL PROTEIN 5.9 g/dL (6.4-8.2)
[2020-11-21 17:58] LABS: ANION GAP 13 mmol/L (5-15)
[2020-11-21] MEDS ORDERED: MAALOX/HYOSCYAMINE/LIDOCAINE 45 ML BTL PO ONE (18:00)
[2020-11-21] MEDS ORDERED: ONDANSETRON 2MG/ML, 2ML IVPush ONE (18:00)
--- NOTE | 2020-11-21 18:15 | NUR ---
PT WITH INCIDENT OF INCONTINENCE, URINATED LARGE AMOUNT IN GURNEY. PT ABLE TO STAND SELF UP TO CLEAN. BEDDING REPLACED AND FLOORS MOPPED. BSC AT BEDSIDE
[2020-11-21] MEDS ORDERED: INSULIN SINGLE DOSE, ER ONE (18:22)
[2020-11-21] MEDS ORDERED: IBUPROFEN 600 MG TABLET ONE (18:26)
[2020-11-21] MEDS ORDERED: MAALOX/HYOSCYAMINE/LIDOCAINE 45 ML BTL ONE (18:27)
[2020-11-21] MEDS ORDERED: MAGNESIUM SULFATE PMX 2GM/50ML 50 ML ONE (18:27)
[2020-11-21] MEDS ORDERED: ONDANSETRON 2MG/ML, 2ML ONE (18:27)
[2020-11-21] MEDS ORDERED: LACTATED RINGERS 1,000 ML IV ONE (18:30)
[2020-11-21] MEDS ORDERED: INSULIN REGULAR 100 UNITS/ML, 3ML VIAL SQ-INSULIN ONE (18:30)
[2020-11-21] MEDS ORDERED: IBUPROFEN 200 MG TABLET PO ONE (18:30)
[2020-11-21] MEDS ORDERED: MAGNESIUM SULFATE PMX 2GM/50ML 50 ML IV ONE (18:30)
--- NOTE | 2020-11-21 19:10 | NUR ---
PER DR. DE LA TORRE GIVE LANTUS INSULIN NOW, NOT 2100. VERBAL ORDER REPEATED
--- NOTE | 2020-11-21 20:29 | NUR ---
BLOOD GLUCOSE READING "HI" ON GLUCOMETER, GREEN TOP DRAWEN FROM PORT AND SENT TO LAB. CLAVE CHANGED WITH STERILE TECHNIQUE.
--- NOTE | 2020-11-21 20:47 | NUR ---
TASK RN: PT RESTING ON [facility]
[2020-11-21] MEDS ORDERED: INSULIN GLARGINE 100 UNITS/ML, PEN SQ-INSULIN ONE ×2 (21:00→22:00)
--- NOTE | 2020-11-21 21:10 | NUR ---
BLOOD GLUCOSE REPORTED TO DR DE LA TORRE. NO NEW ORDERS AT THIS TIME.
[2020-11-21] MEDS ORDERED: hydrALAzine 20 MG/ML, 1ML IVPush PRN (21:30)
[2020-11-21] MEDS ORDERED: ONDANSETRON 2MG/ML, 2ML IVPush PRN (21:30)
[2020-11-21] MEDS ORDERED: INSULIN LISPRO 100 UNITS/ML, PEN SQ-INSULIN SCH (21:30)
[2020-11-21] MEDS ORDERED: ACETAMINOPHEN 325 MG TABLET PO PRN (21:30)
--- NOTE | 2020-11-21 21:35 | NUR ---
REPORT TO JORDAN ALMEIDA
[2020-11-21 21:46] VITALS: BP 132/89
[2020-11-21] MEDS: LACTATED RINGERS 1,000 ML IV SCH (21:59)
[2020-11-21] MEDS: INSULIN LISPRO 100 UNITS/ML, PEN SQ-INSULIN SCH (22:29)
[2020-11-22 01:14] VITALS: BP 111/74
[2020-11-22] MEDS: LACTATED RINGERS 1,000 ML IV SCH ×3 (04:14→20:36)
[2020-11-22] MEDS: GABAPENTIN 300 MG CAPSULE PO PRN ×2 (05:08→20:41)
[2020-11-22 05:45] LABS: ANION GAP 9 mmol/L (5-15); CHLORIDE 94 mmol/L (98-107); CREATININE 0.78 mg/dL (0.55-1.02)
[2020-11-22] MEDS: INSULIN GLARGINE 100 UNITS/ML, PEN SQ-INSULIN SCH ×2 (06:01→18:15)
[2020-11-22 08:14] VITALS: BP 121/82
[2020-11-22] MEDS: INSULIN LISPRO 100 UNITS/ML, PEN SQ-INSULIN SCH ×4 (09:15→20:38)
[2020-11-22 13:31] VITALS: BP 107/70
[2020-11-22 18:47] VITALS: BP 112/75
[2020-11-23 00:32] VITALS: BP 114/74
[2020-11-23] MEDS: LACTATED RINGERS 1,000 ML IV SCH ×2 (03:49→11:20)
[2020-11-23 04:30] LABS: BASOPHILS % (AUTO) 2 % (0-1); EOSINOPHILS % (AUTO) 4 % (1-7); LYMPHOCYTES % (AUTO) 44 % (22-44); MEAN CORPUSCULAR HEMOGLOBIN 29.7 pg (27.0-34.8); MEAN CORPUSCULAR HGB CONC 32.2 g/dL (32.4-35.8); MEAN PLATELET VOLUME 8.7 fL (7.4-10.4); MONOCYTES % (AUTO) 11 % (2-9); NEUTROPHILS % (AUTO) 40 % (42-75); PLATELET COUNT 268 x10^3/uL (130-400); RED BLOOD COUNT 2.99 x10^6/uL (3.82-5.3)
[2020-11-23 04:42] LABS: CHLORIDE 104 mmol/L (98-107)
[2020-11-23 04:46] LABS: ANION GAP 6 mmol/L (5-15); CALCIUM 7.9 mg/dL (8.5-10.1); CREATININE 0.74 mg/dL (0.55-1.02)
[2020-11-23 05:17] LABS: ANISOCYTOSIS 1+; POLYCHROMASIA 1+
[2020-11-23 05:18] LABS: <PLATELET ESTIMATE> ADEQUATE; LARGE PLATELETS 1+; MICROCYTOSIS 1+; STOMATOCYTES 1+
[2020-11-23] MEDS: INSULIN GLARGINE 100 UNITS/ML, PEN SQ-INSULIN SCH (05:56)
[2020-11-23 07:39] VITALS: BP 136/88
[2020-11-23] MEDS: INSULIN LISPRO 100 UNITS/ML, PEN SQ-INSULIN SCH ×2 (09:35→12:16)
[2020-11-23 12:56] VITALS: BP 119/80
[2020-12-04] MEDS ORDERED: AMOX1TAB12 PO (10:59)
[2020-12-04] MEDS ORDERED: INSU100I13 SQ-INSULIN ×2 (10:59)
[2020-12-04] MEDS ORDERED: GABA300C PO (10:59)
== END 2020-11-23 15:07 | disposition home or self-care (01) | DRG 639 ==
LOC: ED 18:00 → EDIP 18:21 → 4EST 21:40
PROVIDERS: ADMIT Family Medicine; ATTEND Internal Medicine
DX: E10.65 Type 1 diabetes mellitus with hyperglycemia (principal); D64.9 Anemia, unspecified; E10.43 Type 1 diabetes mellitus with diabetic autonomic (poly)neuropathy; E86.0 Dehydration; I10 Essential (primary) hypertension; F12.90 Cannabis use, unspecified, uncomplicated; K31.84 Gastroparesis; K82.8 Other specified diseases of gallbladder; Z86.718 Personal history of other venous thrombosis and embolism; Z87.891 Personal history of nicotine dependence; Z91.14 Patient's other noncompliance with medication regimen; Z91.19 Patient's noncompliance with other medical treatment and regimen; Z88.8 Allergy status to other drugs, medicaments and biological substances; Z91.040 Latex allergy status; Z80.9 Family history of malignant neoplasm, unspecified; Z83.3 Family history of diabetes mellitus
CPT/HCPCS: 36415; 80048; 80053; 81003; 82010; 82803; 82947; 82962; 83036; 83690; 83735; 84100; 85025; 93005; 96361; 96374; 99285; G0378; J2405; J1815; J3475; J7030; J7120

== ENCOUNTER 2020-11-25 11:40 | Inpatient (IN) | payer MEDICAID ==
[~2020-11-25] VITALS: Ht 165.1 cm; Wt 60.9 kg
[2020-11-25] MEDS ORDERED: PLEASE ENTER WEIGHT MC SCH (12:30)
[2020-11-25] MEDS ORDERED: SODIUM CHLORIDE 0.9% 1,000ML IVBOLUS ONE ×2 (12:30→14:00)
[2020-11-25 12:46] LABS: MICROSCOPIC NOT IND
[2020-11-25 13:31] LABS: BASOPHILS % (AUTO) 1 % (0-1); EOSINOPHILS % (AUTO) 1 % (1-7); LYMPHOCYTES % (AUTO) 26 % (22-44); MEAN CORPUSCULAR HEMOGLOBIN 30.5 pg (27.0-34.8); MEAN CORPUSCULAR HGB CONC 31.6 g/dL (32.4-35.8); MEAN PLATELET VOLUME 8.4 fL (7.4-10.4); MONOCYTES % (AUTO) 13 % (2-9); NEUTROPHILS % (AUTO) 59 % (42-75); PLATELET COUNT 355 x10^3/uL (130-400); RED BLOOD COUNT 3.06 x10^6/uL (3.82-5.3); RED CELL DISTRIBUTION WIDTH 17.9 % (9.6-15.2)
[2020-11-25 13:36] LABS: ALANINE AMINOTRANSFERASE 160 U/L (12-78); ALBUMIN 2.5 g/dL (3.4-5.0); ANION GAP 11 mmol/L (5-15); CALCIUM 8.6 mg/dL (8.5-10.1); CHLORIDE 90 mmol/L (98-107)
[2020-11-25 13:41] LABS: ALKALINE PHOSPHATASE 350 U/L (45-117); BILIRUBIN,TOTAL 0.5 mg/dL (0.2-1.0); CREATININE 0.85 mg/dL (0.55-1.02); TOTAL PROTEIN 6.5 g/dL (6.4-8.2)
--- NOTE | 2020-11-25 13:43 | NUR ---
PT BIB GRANDMA AND SISTER VIA POV. PER PT SHE HAS DIFFUSE STOMACH PAIN THAT STARTED THIS AM. PT ALSO REPORTS FREQUENT URINATION. PT HAS HX OF DMT2. PT FSBG IN TRIAGE: HI. PT RESTING IN [facility], MONITORING IN PLACE, R CHEST PORT ACCESSED USING STERILE TECHNIQUE, LABS SENT TO LAB, WCTM.
[2020-11-25 14:13] LABS: ACETONE, SERUM Large (80mg/dL) (Negative)
[2020-11-25] MEDS ORDERED: SODIUM CHLORIDE FLUSH 10ML SYR IVF PRN (14:30)
[2020-11-25] MEDS ORDERED: SODIUM CHLORIDE 0.9% 1,000 ML IV ONE (14:30)
[2020-11-25 16:12] VITALS: BP 144/94
[2020-11-25] MEDS ORDERED: hydrALAzine 20 MG/ML, 1ML IVPush PRN (17:00)
[2020-11-25] MEDS ORDERED: ONDANSETRON 2MG/ML, 2ML IVPush PRN (17:00)
[2020-11-25] MEDS ORDERED: POLYETHYLENE GLYCOL 17 GM PACKET PO PRN (17:00)
[2020-11-25] MEDS ORDERED: INSULIN GLARGINE 100 UNITS/ML, PEN SQ-INSULIN ONE (17:00)
[2020-11-25] MEDS ORDERED: PROMETHAZINE 25 MG/ML, 1ML IM PRN (17:00)
[2020-11-25] MEDS ORDERED: BISACODYL 10 MG SUPP PR PRN (17:00)
[2020-11-25] MEDS ORDERED: ONDANSETRON ODT 4 MG PO PRN (17:00)
[2020-11-25] MEDS ORDERED: GABAPENTIN 300 MG CAPSULE PO PRN (17:00)
[2020-11-25] MEDS ORDERED: ACETAMINOPHEN 325 MG TABLET PO PRN (17:00)
[2020-11-25] MEDS: SODIUM CHLORIDE 0.9% 1,000 ML IV SCH (17:34)
[2020-11-25] MEDS: ENOXAPARIN 40 MG/0.4 ML SQ SCH (17:34)
[2020-11-25 20:05] VITALS: BP 142/94
[2020-11-25] MEDS ORDERED: INSULIN LISPRO 100 UNIT/ML, 3ML VIAL SQ ONE (20:30)
[2020-11-25] MEDS: LACTULOSE 10 GM/15 ML UDC PO SCH (20:30)
[2020-11-25] MEDS: INSULIN LISPRO 100 UNITS/ML, PEN SQ-INSULIN SCH (20:31)
[2020-11-25] MEDS ORDERED: CATHFLO-ALTEPLASE 2 MG/2 ML CATHFLUSH ONE (23:00)
[2020-11-26 01:16] VITALS: BP 129/85
[2020-11-26] MEDS: INSULIN LISPRO 100 UNITS/ML, PEN SQ-INSULIN SCH ×4 (06:28→21:50)
[2020-11-26 06:36] LABS: ALBUMIN 2.7 g/dL (3.4-5.0); CHLORIDE 89 mmol/L (98-107)
[2020-11-26 06:38] LABS: ALANINE AMINOTRANSFERASE 151 U/L (12-78); ALKALINE PHOSPHATASE 349 U/L (45-117); ANION GAP 28 mmol/L (5-15); BILIRUBIN,TOTAL 0.5 mg/dL (0.2-1.0); CHOLESTEROL, TOTAL 120 mg/dL (140-239); CREATININE 1.04 mg/dL (0.55-1.02); HDL CHOL % 13 % (28-40); HDL CHOLESTEROL (DIRECT) 15 mg/dL (40-60); TOTAL PROTEIN 6.7 g/dL (6.4-8.2); TRIGLYCERIDES 593 mg/dL (50-200)
[2020-11-26] MEDS ORDERED: INSULIN GLARGINE 100 UNITS/ML, PEN SQ-INSULIN ONE (07:00)
[2020-11-26 07:07] VITALS: BP 98/61
[2020-11-26 07:11] LABS: MEAN CORPUSCULAR HEMOGLOBIN 30.5 pg (27.0-34.8); MEAN PLATELET VOLUME 8.3 fL (7.4-10.4); PLATELET COUNT 551 x10^3/uL (130-400); RED BLOOD COUNT 3.11 x10^6/uL (3.82-5.3); RED CELL DISTRIBUTION WIDTH 19.6 % (9.6-15.2)
[2020-11-26 07:13] LABS: MEAN CORPUSCULAR HGB CONC 28.9 g/dL (32.4-35.8)
[2020-11-26 07:23] LABS: BAND#(MANUAL) 0.07 x10^3/uL; BANDS%(MANUAL) 1 % (0-7); BASOS#(MANUAL) 0.14 x10^3/uL (0-0.1); BASOS% (MANUAL) 2 % (0-1); METAMYELOCYTES# (MANUAL) 0.07 x10^3/uL (0-0); METAMYELOCYTES% (MANUAL) 1 % (0-1)
[2020-11-26 07:24] LABS: ANISOCYTOSIS 1+; LYMPH#(MANUAL) 1.99 x10^3/uL (1-3.4); LYMPHS% (MANUAL) 28 % (22-44); MONOS#(MANUAL) 0.71 x10^3/uL (0.3-2.7); MONOS% (MANUAL) 10 % (2-9); POLYCHROMASIA 1+; SEG#(MANUAL) 4.12 x10^3/uL (1.8-6.8); SEGS% (MANUAL) 58 % (42-75)
[2020-11-26 07:25] LABS: <PLATELET ESTIMATE> INCREASED; <PLT MORPHOLOGY> NORMAL PLT MORPH
[2020-11-26] MEDS ORDERED: SODIUM CHLORIDE 0.9% 1,000ML IVBOLUS ONE ×2 (08:30→10:00)
[2020-11-26] MEDS: INSULIN GLARGINE 100 UNITS/ML, PEN SQ-INSULIN SCH ×2 (08:31→21:49)
[2020-11-26] MEDS: LACTULOSE 10 GM/15 ML UDC PO SCH ×2 (08:40→21:46)
[2020-11-26] MEDS ORDERED: INSULIN GLARGINE 100 UNITS/ML, PEN SQ-INSULIN SCH (09:00)
[2020-11-26] MEDS: SODIUM CHLORIDE 0.9% 1,000 ML IV SCH (11:25)
[2020-11-26 12:00] LABS: ANION GAP 16 mmol/L (5-15); CALCIUM 8.3 mg/dL (8.5-10.1); CHLORIDE 101 mmol/L (98-107); CREATININE 1.09 mg/dL (0.55-1.02)
[2020-11-26 13:44] VITALS: BP 109/69
[2020-11-26] MEDS: ENOXAPARIN 40 MG/0.4 ML SQ SCH (17:00)
[2020-11-26] MEDS ORDERED: INSULIN LISPRO 100 UNITS/ML, PEN SQ-INSULIN ONE (18:00)
[2020-11-26 19:01] VITALS: BP 106/67
[2020-11-27 02:59] VITALS: BP 104/69
[2020-11-27 06:37] LABS: BASOPHILS % (AUTO) 2 % (0-1); EOSINOPHILS % (AUTO) 2 % (1-7); LYMPHOCYTES % (AUTO) 30 % (22-44); MEAN CORPUSCULAR HEMOGLOBIN 30.5 pg (27.0-34.8); MEAN CORPUSCULAR HGB CONC 32.8 g/dL (32.4-35.8); MONOCYTES % (AUTO) 10 % (2-9); NEUTROPHILS % (AUTO) 55 % (42-75); PLATELET COUNT 389 x10^3/uL (130-400); RED BLOOD COUNT 2.77 x10^6/uL (3.82-5.3); RED CELL DISTRIBUTION WIDTH 18.2 % (9.6-15.2)
[2020-11-27 06:48] LABS: ALANINE AMINOTRANSFERASE 116 U/L (12-78); ALBUMIN 2.1 g/dL (3.4-5.0); ANION GAP 7 mmol/L (5-15); CALCIUM 7.8 mg/dL (8.5-10.1); CHLORIDE 111 mmol/L (98-107); CREATININE 0.76 mg/dL (0.55-1.02)
[2020-11-27 06:53] LABS: ALKALINE PHOSPHATASE 220 U/L (45-117); BILIRUBIN,TOTAL 0.2 mg/dL (0.2-1.0); TOTAL PROTEIN 5.5 g/dL (6.4-8.2)
[2020-11-27] MEDS: INSULIN LISPRO 100 UNITS/ML, PEN SQ-INSULIN SCH ×2 (07:00→11:16)
[2020-11-27 08:14] VITALS: BP 123/83
[2020-11-27] MEDS ORDERED: INSULIN GLARGINE 100 UNITS/ML, PEN SQ-INSULIN SCH (09:00)
[2020-11-27] MEDS: LACTULOSE 10 GM/15 ML UDC PO SCH (10:01)
[2020-11-27 12:59] VITALS: BP 126/88
[2020-12-04] MEDS ORDERED: GABA300C PO (10:59)
[2020-12-04] MEDS ORDERED: INSU100I13 SQ-INSULIN ×2 (10:59)
[2020-12-04] MEDS ORDERED: AMOX1TAB12 PO (10:59)
== END 2020-11-27 14:50 | disposition home or self-care (01) | DRG 639 ==
LOC: ED 12:57 → EDIP 14:14 → 4NE 16:09
PROVIDERS: ADMIT Internal Medicine; ATTEND Internal Medicine
DX: E10.65 Type 1 diabetes mellitus with hyperglycemia (principal); D50.9 Iron deficiency anemia, unspecified; D75.89 Other specified diseases of blood and blood-forming organs; E83.42 Hypomagnesemia; E86.0 Dehydration; E10.43 Type 1 diabetes mellitus with diabetic autonomic (poly)neuropathy; R74.01 Elevation of levels of liver transaminase levels; I10 Essential (primary) hypertension; K31.84 Gastroparesis; K82.8 Other specified diseases of gallbladder; Z79.01 Long term (current) use of anticoagulants; Z86.718 Personal history of other venous thrombosis and embolism; Z87.891 Personal history of nicotine dependence; Z91.14 Patient's other noncompliance with medication regimen
CPT/HCPCS: 36415; 80048; 80053; 80061; 81003; 82010; 82140; 82800; 82947; 82962; 83036; 83690; 83735; 84100; 84443; 84703; 85025; 96360; 96372; G0378; J2550; J2997; J1815; J7030

== ENCOUNTER 2020-12-01 11:08 | Inpatient (IN) | payer MEDICAID ==
[~2020-12-01] VITALS: Ht 165.1 cm; Wt 57.8 kg
--- NOTE | 2020-12-01 11:23 | NUR ---
PT BIB EMS FOR NAUSEA. FINGERSTICK BLOOD GLUCOSE -"HI". PT TYPE 1 DM. PT HAS PORT IN RIGHT CHEST WALL. PANTS WERE SOAKED IN URINE UPON ARRIVAL - CLEANED UP. PT CONNECTED TO ALL MONITORS.
--- NOTE | 2020-12-01 12:02 | NUR ---
AWAITING MD ORDERS
[2020-12-01 13:00] LABS: ACETONE, SERUM Large (80mg/dL) (Negative)
[2020-12-01] MEDS ORDERED: SODIUM CHLORIDE 0.9% 1,000ML IVBOLUS ONE (13:00)
[2020-12-01 13:01] LABS: ANION GAP 30 mmol/L (5-15); CALCIUM 9.3 mg/dL (8.5-10.1); CHLORIDE 91 mmol/L (98-107); CREATININE 1.67 mg/dL (0.55-1.02); PH, VENOUS 6.792 pH (7.320-7.420)
[2020-12-01 13:11] LABS: MEAN CORPUSCULAR HEMOGLOBIN 30.3 pg (27.0-34.8); MEAN PLATELET VOLUME 8.8 fL (7.4-10.4); PLATELET COUNT 558 x10^3/uL (130-400); RED CELL DISTRIBUTION WIDTH 20.6 % (9.6-15.2)
[2020-12-01 13:16] LABS: MEAN CORPUSCULAR HGB CONC 26.5 g/dL (32.4-35.8)
[2020-12-01 13:17] LABS: ANISOCYTOSIS 1+; BAND#(MANUAL) 0.15 x10^3/uL; BANDS%(MANUAL) 1 % (0-7); BASOS#(MANUAL) 0.15 x10^3/uL (0-0.1); BASOS% (MANUAL) 1 % (0-1); EOS% (MANUAL) 2 % (1-7); LYMPHS% (MANUAL) 24 % (22-44); MONOS% (MANUAL) 4 % (2-9); POLYCHROMASIA 1+; SEGS% (MANUAL) 68 % (42-75)
[2020-12-01 13:18] LABS: <PLATELET ESTIMATE> INCREASED; <PLT MORPHOLOGY> NORMAL PLT MORPH
[2020-12-01] MEDS ORDERED: SODIUM BICARB 8.4%, 50ML SYRINGE ONE (13:56)
[2020-12-01] MEDS ORDERED: SODIUM BICARB 8.4%, 50ML SYRINGE IVPB ONE (14:00)
[2020-12-01] MEDS ORDERED: ONDANSETRON 2MG/ML, 2ML IV PRN (14:00)
[2020-12-01] MEDS: HEPARIN 5,000 UNITS/ML, 1ML SQ SCH ×2 (14:00→22:00)
[2020-12-01] MEDS: SODIUM CHLORIDE 0.9% 1,000 ML IV SCH (14:19)
--- NOTE | 2020-12-01 14:24 | NUR ---
HOPITALIST BEDSIDE FOR ASSESSMENT. PT MEDICATED PER MAR
[2020-12-01] MEDS: REGULAR INSULIN 100 UNITS in SODIUM CHLORIDE 0.9% 99 ML IV PRN ×3 (14:27→14:33)
[2020-12-01 14:32] LABS: ALBUMIN 2.9 g/dL (3.4-5.0); BILIRUBIN, DIRECT 0.1 mg/dL (0.1-0.2)
[2020-12-01 14:34] LABS: ALANINE AMINOTRANSFERASE 186 U/L (12-78); ALKALINE PHOSPHATASE 344 U/L (45-117); BILIRUBIN,INDIRECT 0.3 mg/dL (0.0-2.0); BILIRUBIN,TOTAL 0.4 mg/dL (0.2-1.0); TOTAL PROTEIN 7.4 g/dL (6.4-8.2)
--- NOTE | 2020-12-01 15:22 | NUR ---
FINGERSTICK READING "HI". STATE BLOOD GLUCOSE ORDERED
--- NOTE | 2020-12-01 15:31 | NUR ---
LAB DRAWING PT AT THIS TIME.
--- NOTE | 2020-12-01 15:54 | NUR ---
TASK RN: AWAITING LAB GLUCOSE TO TITRATE INSULIN IF INDICATED.
[2020-12-01] MEDS: D5%-0.45NACL+KCL 20MEQ 1,000 ML IV SCH (16:00)
--- NOTE | 2020-12-01 16:19 | NUR ---
NO ADJUSTMENT TO INSULIN PER PROTOCOL
--- NOTE | 2020-12-01 16:52 | NUR ---
FINGERSTICK "HI". STAT BLOOD GLUCOSE LEVEL ORDERED
[2020-12-01 17:44] LABS: ANION GAP 29 mmol/L (5-15); CALCIUM 8.9 mg/dL (8.5-10.1); CHLORIDE 98 mmol/L (98-107); CREATININE 1.63 mg/dL (0.55-1.02)
--- NOTE | 2020-12-01 17:59 | NUR ---
AWAITING GLUCOSE LEVEL TO TITRATE INSULIN
[2020-12-01] MEDS: MEROPENEM 500 MG in SODIUM CHLORIDE 0.9% 100 ML IV SCH (18:22)
[2020-12-01] MEDS: FAMOTIDINE 20 MG/2 ML IVPush SCH (20:01)
[2020-12-01 22:32] LABS: ANION GAP 20 mmol/L (5-15); CALCIUM 7.4 mg/dL (8.5-10.1); CHLORIDE 113 mmol/L (98-107); CREATININE 1.37 mg/dL (0.55-1.02)
[2020-12-02] MEDS: SODIUM CHLORIDE 0.9% 1,000 ML IV SCH ×3 (00:53→03:54)
[2020-12-02] MEDS: REGULAR INSULIN 100 UNITS in SODIUM CHLORIDE 0.9% 99 ML IV PRN (01:10)
[2020-12-02 01:27] LABS: ANION GAP 16 mmol/L (5-15); CALCIUM 8.4 mg/dL (8.5-10.1); CHLORIDE 117 mmol/L (98-107); CREATININE 1.57 mg/dL (0.55-1.02)
[2020-12-02] MEDS: MEROPENEM 500 MG in SODIUM CHLORIDE 0.9% 100 ML IV SCH ×3 (02:16→17:45)
[2020-12-02] MEDS: D5%-0.45NACL+KCL 20MEQ 1,000 ML IV SCH ×2 (02:16)
[2020-12-02] MEDS: ACETAMINOPHEN 500 MG TABLET PO PRN (02:41)
[2020-12-02 04:21] VITALS: BP 100/49
[2020-12-02 04:23] LABS: BASOPHILS % (AUTO) 0 % (0-1); EOSINOPHILS % (AUTO) 0 % (1-7); LYMPHOCYTES % (AUTO) 8 % (22-44); MEAN CORPUSCULAR HEMOGLOBIN 30.3 pg (27.0-34.8); MEAN PLATELET VOLUME 7.1 fL (7.4-10.4); MONOCYTES % (AUTO) 7 % (2-9); NEUTROPHILS % (AUTO) 85 % (42-75); PLATELET COUNT 303 x10^3/uL (130-400); RED BLOOD COUNT 3.06 x10^6/uL (3.82-5.3); RED CELL DISTRIBUTION WIDTH 18.8 % (9.6-15.2)
[2020-12-02 04:34] LABS: ALANINE AMINOTRANSFERASE 130 U/L (12-78); ALBUMIN 2.8 g/dL (3.4-5.0); ANION GAP 6 mmol/L (5-15); BILIRUBIN, DIRECT 0.1 mg/dL (0.1-0.2); CALCIUM 8.5 mg/dL (8.5-10.1); CHLORIDE 121 mmol/L (98-107); CREATININE 1.33 mg/dL (0.55-1.02)
[2020-12-02 04:39] LABS: ALKALINE PHOSPHATASE 245 U/L (45-117); BILIRUBIN,TOTAL 0.3 mg/dL (0.2-1.0); TOTAL PROTEIN 6.3 g/dL (6.4-8.2)
[2020-12-02 05:14] LABS: BILIRUBIN,INDIRECT 0.2 mg/dL (0.0-2.0)
[2020-12-02] MEDS: HEPARIN 5,000 UNITS/ML, 1ML SQ SCH ×3 (06:00→22:00)
[2020-12-02] MEDS ORDERED: POTASSIUM CHLORIDE 20 MEQ TAB.ER.PRT PO ONE (07:00)
[2020-12-02] MEDS ORDERED: INSULIN GLARGINE 100 UNITS/ML, PEN ONE (08:01)
[2020-12-02] MEDS ORDERED: INSULIN GLARGINE 100 UNITS/ML, PEN SQ-INSULIN ONE (08:30)
[2020-12-02] MEDS: FAMOTIDINE 20 MG/2 ML IVPush SCH ×2 (08:55→21:40)
[2020-12-02 10:25] LABS: CHLORIDE 109 mmol/L (98-107)
[2020-12-02 10:29] LABS: ANION GAP 9 mmol/L (5-15); CALCIUM 7.9 mg/dL (8.5-10.1); CREATININE 1.11 mg/dL (0.55-1.02)
[2020-12-02] MEDS ORDERED: DEXTROSE 50%, 50ML SYRINGE IVPush PRN (11:00)
[2020-12-02] MEDS ORDERED: DEXTROSE 4 GM TAB.CHEW PO PRN (11:00)
[2020-12-02] MEDS ORDERED: GLUCAGON 1 MG IM PRN (11:00)
[2020-12-02] MEDS: INSULIN LISPRO 100 UNITS/ML, PEN SQ-INSULIN SCH ×4 (12:05→21:40)
[2020-12-02 14:23] LABS: ANION GAP 12 mmol/L (5-15); CALCIUM 7.6 mg/dL (8.5-10.1); CHLORIDE 103 mmol/L (98-107); CREATININE 1.37 mg/dL (0.55-1.02)
[2020-12-02] MEDS ORDERED: SODIUM CHLORIDE 0.9% 1,000ML IVBOLUS ONE (15:00)
[2020-12-02] MEDS: NYSTATIN TOPICAL POWDER 15GM TP SCH ×2 (16:15→21:00)
[2020-12-02] MEDS: SODIUM CHLORIDE FLUSH 10ML SYR IVF SCH (21:00)
[2020-12-02 21:31] VITALS: BP 110/65
[2020-12-02] MEDS: INSULIN GLARGINE 100 UNITS/ML, PEN SQ-INSULIN SCH (21:40)
[2020-12-03] MEDS: ACETAMINOPHEN 500 MG TABLET PO PRN (00:53)
[2020-12-03] MEDS: MEROPENEM 500 MG in SODIUM CHLORIDE 0.9% 100 ML IV SCH ×2 (01:25→09:08)
[2020-12-03 01:27] VITALS: BP 102/61
[2020-12-03] MEDS ORDERED: INSULIN LISPRO 100 UNIT/ML, 3ML VIAL SQ-INSULIN ONE (01:30)
[2020-12-03] MEDS: HEPARIN 5,000 UNITS/ML, 1ML SQ SCH ×2 (05:50→14:00)
[2020-12-03 06:50] VITALS: BP 115/77
[2020-12-03 06:51] LABS: BASOPHILS % (AUTO) 1 % (0-1); EOSINOPHILS % (AUTO) 1 % (1-7); LYMPHOCYTES % (AUTO) 23 % (22-44); MEAN CORPUSCULAR HEMOGLOBIN 30.2 pg (27.0-34.8); MEAN CORPUSCULAR HGB CONC 32.2 g/dL (32.4-35.8); MEAN PLATELET VOLUME 7.3 fL (7.4-10.4); MONOCYTES % (AUTO) 4 % (2-9); NEUTROPHILS % (AUTO) 72 % (42-75); PLATELET COUNT 189 x10^3/uL (130-400); RED BLOOD COUNT 2.67 x10^6/uL (3.82-5.3); RED CELL DISTRIBUTION WIDTH 19.3 % (9.6-15.2)
[2020-12-03 06:52] LABS: CHLORIDE 106 mmol/L (98-107)
[2020-12-03 06:59] LABS: ALANINE AMINOTRANSFERASE 117 U/L (12-78); ALBUMIN 2.4 g/dL (3.4-5.0); ALKALINE PHOSPHATASE 219 U/L (45-117); ANION GAP 8 mmol/L (5-15); BILIRUBIN,TOTAL 0.3 mg/dL (0.2-1.0); CREATININE 1.04 mg/dL (0.55-1.02); TOTAL PROTEIN 5.7 g/dL (6.4-8.2)
[2020-12-03] MEDS: INSULIN LISPRO 100 UNITS/ML, PEN SQ-INSULIN SCH ×7 (07:00→20:58)
[2020-12-03] MEDS: FAMOTIDINE 20 MG/2 ML IVPush SCH (09:08)
[2020-12-03] MEDS: NYSTATIN TOPICAL POWDER 15GM TP SCH ×3 (09:08→21:00)
[2020-12-03] MEDS: INSULIN GLARGINE 100 UNITS/ML, PEN SQ-INSULIN SCH ×2 (09:10→20:58)
[2020-12-03] MEDS: SODIUM CHLORIDE FLUSH 10ML SYR IVF SCH ×2 (09:17→21:00)
[2020-12-03] MEDS: NYSTATIN CRM 15GM TP SCH ×2 (09:22→21:00)
[2020-12-03 09:42] LABS: MICROSCOPIC NOT IND
[2020-12-03 12:45] VITALS: BP 119/76
[2020-12-03 19:35] VITALS: BP 124/82
[2020-12-03] MEDS: AMOXICILLIN/CLAV 875-125MG TABLET PO SCH (20:58)
[2020-12-03] MEDS: DOXYCYCLINE 100MG TABLET PO SCH (20:58)
[2020-12-04 01:38] VITALS: BP 132/88
[2020-12-04] MEDS: ACETAMINOPHEN 500 MG TABLET PO PRN (03:32)
[2020-12-04 06:07] LABS: ALBUMIN 2.5 g/dL (3.4-5.0); ANION GAP 10 mmol/L (5-15); CALCIUM 8.3 mg/dL (8.5-10.1); CHLORIDE 106 mmol/L (98-107)
[2020-12-04 06:10] LABS: ALANINE AMINOTRANSFERASE 113 U/L (12-78); ALKALINE PHOSPHATASE 218 U/L (45-117); BILIRUBIN,TOTAL 0.3 mg/dL (0.2-1.0); CREATININE 0.74 mg/dL (0.55-1.02)
[2020-12-04 06:12] LABS: BASOPHILS % (AUTO) 1 % (0-1); EOSINOPHILS % (AUTO) 1 % (1-7); LYMPHOCYTES % (AUTO) 35 % (22-44); MEAN CORPUSCULAR HEMOGLOBIN 30.2 pg (27.0-34.8); MEAN CORPUSCULAR HGB CONC 32.4 g/dL (32.4-35.8); MEAN PLATELET VOLUME 7.6 fL (7.4-10.4); MONOCYTES % (AUTO) 6 % (2-9); NEUTROPHILS % (AUTO) 58 % (42-75); PLATELET COUNT 173 x10^3/uL (130-400); RED BLOOD COUNT 2.83 x10^6/uL (3.82-5.3); RED CELL DISTRIBUTION WIDTH 18.9 % (9.6-15.2)
[2020-12-04 08:14] VITALS: BP 148/105
[2020-12-04] MEDS: DOXYCYCLINE 100MG TABLET PO SCH (09:43)
[2020-12-04] MEDS: AMOXICILLIN/CLAV 875-125MG TABLET PO SCH (09:43)
[2020-12-04] MEDS: INSULIN LISPRO 100 UNITS/ML, PEN SQ-INSULIN SCH ×4 (09:49→11:41)
[2020-12-04] MEDS: SODIUM CHLORIDE FLUSH 10ML SYR IVF SCH (09:50)
[2020-12-04] MEDS: INSULIN GLARGINE 100 UNITS/ML, PEN SQ-INSULIN SCH (09:53)
[2020-12-04] MEDS: NYSTATIN CRM 15GM TP SCH (09:54)
[2020-12-04] MEDS: NYSTATIN TOPICAL POWDER 15GM TP SCH (09:54)
[2020-12-04] MEDS ORDERED: INSU100I13 SQ-INSULIN ×4 (10:59)
[2020-12-04] MEDS ORDERED: GABA300C PO ×2 (10:59)
[2020-12-04] MEDS ORDERED: AMOX1TAB12 PO ×2 (10:59)
[2020-12-04] MEDS ORDERED: INSULIN GLARGINE 100 UNITS/ML, PEN SQ-INSULIN SCH (21:00)
[2020-12-05] MEDS ORDERED: INSULIN GLARGINE 100 UNITS/ML, PEN SQ-INSULIN SCH (09:00)
== END 2020-12-04 15:27 | disposition home or self-care (01) | DRG 637 ==
LOC: ED 11:28 → ORIP 13:52 → CCU 18:26 → CSU 12-02 02:49 → 4NW 12-02 17:15
PROVIDERS: ADMIT Hospitalist; ATTEND Hospitalist
DX: E10.10 Type 1 diabetes mellitus with ketoacidosis without coma (principal); J18.9 Pneumonia, unspecified organism; I82.501 Chronic embolism and thrombosis of unspecified deep veins of right lower extremity; N17.9 Acute kidney failure, unspecified; B37.3 Candidiasis of vulva and vagina; D53.9 Nutritional anemia, unspecified; D72.828 Other elevated white blood cell count; E86.0 Dehydration; E87.5 Hyperkalemia; E87.6 Hypokalemia; F12.90 Cannabis use, unspecified, uncomplicated; F17.200 Nicotine dependence, unspecified, uncomplicated; I10 Essential (primary) hypertension; R62.50 Unspecified lack of expected normal physiological development in childhood; Z82.0 Family history of epilepsy and other diseases of the nervous system; Z83.3 Family history of diabetes mellitus; Z91.14 Patient's other noncompliance with medication regimen; Z91.040 Latex allergy status
CPT/HCPCS: 36415; 71045; 80048; 80053; 80076; 81003; 82010; 82040; 82728; 82803; 82947; 82962; 83690; 83735; 84100; 84145; 84703; 85025; 87040; 87081; 96365; 96367; 99291; G0378; J2185; J2405; J1815; J3480; J7030

== ENCOUNTER 2020-12-05 16:48 | Emergency (ER) | payer MEDICAID ==
[~2020-12-05] VITALS: Ht 165.1 cm; Wt 48.0 kg
[2020-12-05] MEDS ORDERED: SODIUM CHLORIDE 0.9% 1,000ML IVBOLUS ONE ×2 (17:30→23:00)
--- NOTE | 2020-12-05 17:49 | NUR ---
pt refusing to have blood drawn.
[2020-12-05] MEDS ORDERED: SODIUM CHLORIDE FLUSH 10ML SYR IVF ONE (23:00)
[2020-12-06 00:45] LABS: MEAN CORPUSCULAR HEMOGLOBIN 30.3 pg (27.0-34.8); MEAN CORPUSCULAR HGB CONC 30.9 g/dL (32.4-35.8); MEAN PLATELET VOLUME 9.3 fL (7.4-10.4); PLATELET COUNT 182 x10^3/uL (130-400); RED BLOOD COUNT 3.17 x10^6/uL (3.82-5.3); RED CELL DISTRIBUTION WIDTH 19.1 % (9.6-15.2)
[2020-12-06 00:47] LABS: ALANINE AMINOTRANSFERASE 184 U/L (12-78); ALBUMIN 2.7 g/dL (3.4-5.0); ANION GAP 9 mmol/L (5-15); CALCIUM 8.6 mg/dL (8.5-10.1); CHLORIDE 97 mmol/L (98-107); CREATININE 0.94 mg/dL (0.55-1.02)
[2020-12-06 00:52] LABS: ALKALINE PHOSPHATASE 375 U/L (45-117); BILIRUBIN,TOTAL 0.4 mg/dL (0.2-1.0); TOTAL PROTEIN 6.7 g/dL (6.4-8.2)
[2020-12-06 01:19] LABS: ANISOCYTOSIS 1+
[2020-12-06 01:20] LABS: <PLATELET ESTIMATE> ADEQUATE
[2020-12-06 01:22] LABS: LARGE PLATELETS 1+
[2020-12-06 01:27] LABS: BASOPHILS % (AUTO) 2 % (0-1); EOSINOPHILS % (AUTO) 1 % (1-7); LYMPHOCYTES % (AUTO) 34 % (22-44); MONOCYTES % (AUTO) 9 % (2-9); NEUTROPHILS % (AUTO) 53 % (42-75)
[2020-12-06 01:35] LABS: ACETONE, SERUM Trace (Negative)
[2020-12-06] MEDS ORDERED: INSULIN SINGLE DOSE, ER ONE (01:43)
[2020-12-06 01:55] VITALS: BP 165/110
--- NOTE | 2020-12-06 01:56 | NUR ---
report to tiara terry
[2020-12-06] MEDS ORDERED: INSULIN REGULAR 100 UNITS/ML, 3ML VIAL SQ-INSULIN ONE (02:00)
--- NOTE | 2020-12-06 02:07 | NUR ---
report from johnna menjivar
--- NOTE | 2020-12-06 02:20 | NUR ---
Patient given discharge instructions and they have confirmed that they understand the instructions. Patient wheeled to dc desk, at baseline ambulation. NAD, all questions answered appropriately, denies additional needs at this time. No personal belongings left in room after discharge.
[2020-12-17] MEDS ORDERED: APIX5TAB PO ×2 (15:08)
== END 2020-12-06 02:39 | disposition home or self-care (01) ==
LOC: ED 17:00
DX: E10.649 Type 1 diabetes mellitus with hypoglycemia without coma (principal); R10.10 Upper abdominal pain, unspecified; R05 Cough; R07.89 Other chest pain; I10 Essential (primary) hypertension; D64.9 Anemia, unspecified; E87.1 Hypo-osmolality and hyponatremia; R94.5 Abnormal results of liver function studies
CPT/HCPCS: 36415; 71045; 80053; 82010; 82962; 83690; 84703; 85025; 96360; 96361; 99284; J1815; J7030

== ENCOUNTER 2020-12-14 16:06 | Inpatient (IN) | payer MEDICAID ==
[~2020-12-14] VITALS: Ht 170.2 cm; Wt 64.0 kg
[2020-12-14] MEDS ORDERED: SODIUM CHLORIDE FLUSH 10ML SYR IVF ONE (16:30)
[2020-12-14] MEDS ORDERED: SODIUM CHLORIDE 0.9% 1,000ML IVBOLUS ONE ×2 (16:30→18:30)
[2020-12-14 17:09] LABS: PH, VENOUS 6.796 pH (7.320-7.420)
[2020-12-14 17:11] LABS: ALANINE AMINOTRANSFERASE 580 U/L (12-78); ALBUMIN 3.2 g/dL (3.4-5.0); ANION GAP 29 mmol/L (5-15); CALCIUM 9.3 mg/dL (8.5-10.1); CHLORIDE 99 mmol/L (98-107)
[2020-12-14 17:14] LABS: ALKALINE PHOSPHATASE 539 U/L (45-117); BILIRUBIN,TOTAL 0.4 mg/dL (0.2-1.0); CREATININE 1.25 mg/dL (0.55-1.02); TOTAL PROTEIN 7.2 g/dL (6.4-8.2)
[2020-12-14 17:44] LABS: BASOPHILS % (AUTO) 0 % (0-1); EOSINOPHILS % (AUTO) 0 % (1-7); LYMPHOCYTES % (AUTO) 13 % (22-44); MEAN CORPUSCULAR HEMOGLOBIN 31.3 pg (27.0-34.8); MEAN PLATELET VOLUME 8.8 fL (7.4-10.4); MONOCYTES % (AUTO) 5 % (2-9); NEUTROPHILS % (AUTO) 81 % (42-75); PLATELET COUNT 431 x10^3/uL (130-400); RED BLOOD COUNT 3.42 x10^6/uL (3.82-5.3); RED CELL DISTRIBUTION WIDTH 20.9 % (9.6-15.2)
[2020-12-14 17:47] LABS: MEAN CORPUSCULAR HGB CONC 28.1 g/dL (32.4-35.8)
[2020-12-14 17:49] LABS: ANISOCYTOSIS 2+
[2020-12-14 17:50] LABS: <PLATELET ESTIMATE> INCREASED; <PLT MORPHOLOGY> NORMAL PLT MORPH; POLYCHROMASIA 1+
[2020-12-14 18:09] LABS: ACETONE, SERUM Large (80mg/dL) (Negative)
--- NOTE | 2020-12-14 18:11 | NUR ---
BIB EMS FOR HI BS, SOB. PT IN BED WITH COTN CRANIOLOGIST, SPO2, BP Q 30 MIN, SIDE RIALSUP X2, CALL LIGHT IN REACH. NAD. WENT OVER PLAN OF CARE. PT AGREES TO PLAN. PT PUT ON HOSPITAL GOWN FOR COMFORT
[2020-12-14] MEDS ORDERED: REGULAR INSULIN 100 UNITS in SODIUM CHLORIDE 0.9% 99 ML IV PRN (18:30)
[2020-12-14] MEDS ORDERED: ONDANSETRON 2MG/ML, 2ML IV PRN (19:00)
[2020-12-14] MEDS ORDERED: DOCUSATE 100 MG CAPSULE PO PRN (19:00)
[2020-12-14] MEDS ORDERED: LABETALOL 5MG/ML, 20ML IVPush PRN (19:00)
[2020-12-14] MEDS ORDERED: DEXTROSE 4 GM TAB.CHEW PO PRN (19:00)
[2020-12-14] MEDS ORDERED: ENOXAPARIN 40 MG/0.4 ML SQ SCH (19:00)
[2020-12-14] MEDS ORDERED: GLUCAGON 1 MG IM PRN (19:00)
[2020-12-14] MEDS ORDERED: DEXTROSE 50%, 50ML SYRINGE IVPush PRN (19:00)
[2020-12-14] MEDS ORDERED: LACTULOSE 10 GM/15 ML UDC PO PRN (19:00)
[2020-12-14] MEDS ORDERED: D5%-0.45NACL+KCL 20MEQ 1,000 ML IV SCH (19:00)
[2020-12-14 19:31] LABS: ANION GAP 31 mmol/L (5-15); CALCIUM 8.5 mg/dL (8.5-10.1); CHLORIDE 105 mmol/L (98-107); CREATININE 1.17 mg/dL (0.55-1.02)
[2020-12-14] MEDS: SODIUM CHLORIDE 0.9% 1,000 ML IV SCH (19:43)
--- NOTE | 2020-12-14 19:53 | NUR ---
Michael cano in [facility] - 12/14/20 at 1955 by [email or web address] REPORTED CRITICAL LAB RESULTS TO KENYON SEYMOUR
--- NOTE | 2020-12-14 19:55 | NUR ---
ATTEMPTED TO REPORT CRITICAL LAB RESULTS TO KENYON SEYMOUR. LEFT MESSAGE AND MD TO CALL BACK
--- NOTE | 2020-12-14 19:58 | NUR ---
CROW SEYMOUR MADE AWARE OF CRITICAL LAB RESULTS
[2020-12-14] MEDS ORDERED: FAMOTIDINE 20 MG/2 ML ONE (20:08)
[2020-12-14] MEDS ORDERED: APIXABAN 5 MG TABLET ONE (20:08)
[2020-12-14] MEDS: FAMOTIDINE 20 MG/2 ML IVPush SCH (20:10)
[2020-12-14] MEDS: FERROUS SULFATE 325 MG TABLET PO SCH (20:19)
--- NOTE | 2020-12-14 20:20 | NUR ---
UNABLE TO GIVE PO MEDS DUE TO FAILED SWALLOW STUDY
[2020-12-14] MEDS ORDERED: SODIUM BICARBONATE 8.4% 150 MEQ in DEXTROSE 5% 1,000 ML IV SCH (20:30)
--- NOTE | 2020-12-14 20:45 | NUR ---
Michael cano in ED - 12/14/20 at 2326 by [email or web address] GLUCOSE CHECKED AND METER READ GREATER THAN 600. RATE TO REMAIN AT 5ML/5UNITS HR
[2020-12-14] MEDS ORDERED: APIXABAN 5 MG TABLET PO SCH (21:00)
[2020-12-14] MEDS ORDERED: INSULIN LISPRO 100 UNITS/ML, PEN SQ-INSULIN SCH (21:00)
--- NOTE | 2020-12-14 21:43 | NUR ---
Michael cano in ED - 12/14/20 at 2326 by [email or web address] GLUCOSE READ HI. TO KEEP RATE THE SAME
[2020-12-14 23:17] LABS: ANION GAP 27 mmol/L (5-15); CALCIUM 7.7 mg/dL (8.5-10.1); CHLORIDE 110 mmol/L (98-107); CREATININE 1.15 mg/dL (0.55-1.02)
--- NOTE | 2020-12-14 23:21 | NUR ---
Michael cano in [facility] - 12/14/20 at 2323 by [email or web address] LINDEN ALMEIDA SUPERVISED STRAIGHT CATHETERIZATION
--- NOTE | 2020-12-14 23:58 | NUR ---
LISSETH SEYMOUR MADE AWARE OF CRITICAL LAB RESULTS. NO NEW INTERVENTIONS AT THIS TIME
[2020-12-15] MEDS: SODIUM CHLORIDE 0.9% 1,000 ML IV SCH ×3 (00:38→20:37)
[2020-12-15] MEDS ORDERED: SODIUM BICARBONATE 1 MEQ/ML, 50ML VIAL IVPush ONE (02:03)
--- NOTE | 2020-12-15 02:04 | NUR ---
LISSETH SEYMOUR SAID TO GIVE 1 AMP OF SODIUM BICARBONATE 8.4% FOR ACIDOSIS
[2020-12-15] MEDS ORDERED: SODIUM BICARB 8.4%, 50ML SYRINGE ONE ×2 (02:07→02:43)
[2020-12-15 02:14] LABS: ANION GAP 21 mmol/L (5-15); CALCIUM 7.4 mg/dL (8.5-10.1); CHLORIDE 115 mmol/L (98-107); CREATININE 1.13 mg/dL (0.55-1.02)
--- NOTE | 2020-12-15 02:35 | NUR ---
Lab reported CO2 of 9. Reported to Mandi amezquita. No new orders. Value is trending up.
[2020-12-15] MEDS ORDERED: ENOXAPARIN 100 MG/ML ONE (02:44)
[2020-12-15] MEDS ORDERED: SODIUM BICARBONATE 8.4% 150 MEQ in DEXTROSE 5% 1,000 ML IV SCH (03:00)
[2020-12-15] MEDS: ENOXAPARIN 100 MG/ML SQ SCH ×2 (03:04→17:00)
[2020-12-15] MEDS: POTASSIUM CHLORIDE 40 MEQ in LACTATED RINGERS 1,000 ML IV SCH ×3 (05:17→05:43)
--- NOTE | 2020-12-15 05:39 | NUR ---
PATIENT NOW PASSED DYSPHAGIA SCREENING. LISSETH KELLY SAID TO GIVE 40MEQ OF POTASSIUMN CHLORIDE PO AND LR INFUSION AT 150ML/HR
[2020-12-15] MEDS ORDERED: POTASSIUM CHLORIDE 20 MEQ PACKET PO SCH (06:00)
[2020-12-15] MEDS ORDERED: LACTATED RINGERS 1,000 ML IV SCH (06:00)
[2020-12-15 06:53] LABS: ANION GAP 10 mmol/L (5-15); CALCIUM 7.9 mg/dL (8.5-10.1); CHLORIDE 119 mmol/L (98-107)
[2020-12-15 06:55] LABS: CREATININE 1.24 mg/dL (0.55-1.02)
[2020-12-15] MEDS: REGULAR INSULIN 100 UNITS in SODIUM CHLORIDE 0.9% 99 ML IV PRN ×4 (07:02→12:08)
--- NOTE | 2020-12-15 07:03 | NUR ---
INSULIN DECREASED TO 19UNITS/H
[2020-12-15] MEDS ORDERED: MAGNESIUM SULFATE PMX 2GM/50ML 50 ML IV ONE (08:00)
[2020-12-15] MEDS ORDERED: MAGNESIUM OXIDE 400 MG TABLET ONE (08:31)
[2020-12-15] MEDS ORDERED: FAMOTIDINE 20 MG/2 ML ONE (08:32)
[2020-12-15] MEDS ORDERED: MAGNESIUM SULFATE PMX 2GM/50ML 50 ML ONE (08:32)
[2020-12-15] MEDS: MAGNESIUM OXIDE 400 MG TABLET PO SCH (08:49)
[2020-12-15] MEDS: FAMOTIDINE 20 MG/2 ML IVPush SCH (08:51)
[2020-12-15] MEDS: SODIUM CHLORIDE FLUSH 10ML SYR IVF SCH ×3 (08:54→21:00)
--- NOTE | 2020-12-15 09:06 | NUR ---
REPORT FROM ELLE NEWELL. PT RESTING IN [facility], AWAITING MEDICATIONS FROM PHARMACY, MONITORING IN PLACE, NADN AT THIS TIME, PT STATES NO NEEDS AT THIS TIME, WCTM.
--- NOTE | 2020-12-15 09:08 | NUR ---
BS 90 insulin stoped
--- NOTE | 2020-12-15 10:15 | NUR ---
PT PROVIDED WATER AND ICE, PT RESTING IN [facility], MONITORING IN PLACE, FRANTZ AT THIS TIME, LORELEI.
[2020-12-15] MEDS ORDERED: D5%-0.45NACL+KCL 20MEQ 1,000 ML IV SCH (11:00)
[2020-12-15 11:06] LABS: BASOPHILS % (AUTO) 0 % (0-1); EOSINOPHILS % (AUTO) 0 % (1-7); LYMPHOCYTES % (AUTO) 6 % (22-44); MEAN CORPUSCULAR HEMOGLOBIN 31.8 pg (27.0-34.8); MEAN CORPUSCULAR HGB CONC 33.9 g/dL (32.4-35.8); MEAN PLATELET VOLUME 7.9 fL (7.4-10.4); MONOCYTES % (AUTO) 5 % (2-9); NEUTROPHILS % (AUTO) 89 % (42-75); PLATELET COUNT 191 x10^3/uL (130-400); RED BLOOD COUNT 2.86 x10^6/uL (3.82-5.3); RED CELL DISTRIBUTION WIDTH 19.7 % (9.6-15.2)
[2020-12-15 11:18] LABS: ANION GAP 11 mmol/L (5-15); CALCIUM 7.8 mg/dL (8.5-10.1); CHLORIDE 110 mmol/L (98-107); CREATININE 1.03 mg/dL (0.55-1.02)
[2020-12-15 11:22] LABS: ALBUMIN 2.6 g/dL (3.4-5.0); BILIRUBIN, DIRECT 0.1 mg/dL (0.1-0.2)
[2020-12-15 11:24] LABS: BILIRUBIN,INDIRECT 0.3 mg/dL (0.0-2.0); BILIRUBIN,TOTAL 0.4 mg/dL (0.2-1.0); TOTAL PROTEIN 5.9 g/dL (6.4-8.2)
--- NOTE | 2020-12-15 11:45 | NUR ---
DR. PRESCOTT CALLED AT THIS TIME TO INFORM THAT LABS WERE BACK. PER SHE WILL LOOK AT EMR AND GIVE NEW ORDERS IF NECESSARY.
--- NOTE | 2020-12-15 12:19 | NUR ---
MEAL TRAY PROVIDED AT THIS TIME, LORELEI.
[2020-12-15] MEDS: INSULIN GLARGINE 100 UNITS/ML, PEN SQ-INSULIN SCH (12:30)
[2020-12-15] MEDS ORDERED: POTASSIUM CHLORIDE 20 MEQ TAB.ER.PRT PO ONE (13:00)
[2020-12-15 17:30] LABS: ANION GAP 12 mmol/L (5-15); CALCIUM 7.2 mg/dL (8.5-10.1); CHLORIDE 104 mmol/L (98-107); CREATININE 0.83 mg/dL (0.55-1.02)
[2020-12-15] MEDS: INSULIN LISPRO 100 UNITS/ML, PEN SQ-INSULIN SCH ×2 (17:35→21:08)
[2020-12-15 20:08] VITALS: BP 113/77
[2020-12-15] MEDS: ACETAMINOPHEN 325 MG TABLET PO PRN (22:29)
[2020-12-16] MEDS: INSULIN GLARGINE 100 UNITS/ML, PEN SQ-INSULIN SCH ×3 (00:32→21:03)
[2020-12-16 03:25] VITALS: BP 102/61
[2020-12-16] MEDS: SODIUM CHLORIDE 0.9% 1,000 ML IV SCH ×3 (04:30→21:03)
[2020-12-16] MEDS: ENOXAPARIN 100 MG/ML SQ SCH ×2 (04:40→16:57)
[2020-12-16 06:08] LABS: BASOPHILS % (AUTO) 0 % (0-1); EOSINOPHILS % (AUTO) 1 % (1-7); LYMPHOCYTES % (AUTO) 22 % (22-44); MEAN CORPUSCULAR HEMOGLOBIN 31.5 pg (27.0-34.8); MEAN CORPUSCULAR HGB CONC 33.3 g/dL (32.4-35.8); MONOCYTES % (AUTO) 5 % (2-9); NEUTROPHILS % (AUTO) 71 % (42-75); PLATELET COUNT 148 x10^3/uL (130-400); RED BLOOD COUNT 2.39 x10^6/uL (3.82-5.3); RED CELL DISTRIBUTION WIDTH 20.1 % (9.6-15.2)
[2020-12-16 06:17] LABS: ALANINE AMINOTRANSFERASE 223 U/L (12-78); ANION GAP 8 mmol/L (5-15); CHLORIDE 109 mmol/L (98-107); CREATININE 0.83 mg/dL (0.55-1.02)
[2020-12-16 06:19] LABS: ALKALINE PHOSPHATASE 238 U/L (45-117); BILIRUBIN,TOTAL 0.3 mg/dL (0.2-1.0); TOTAL PROTEIN 4.9 g/dL (6.4-8.2)
[2020-12-16 07:23] VITALS: BP 108/70
[2020-12-16] MEDS: INSULIN LISPRO 100 UNITS/ML, PEN SQ-INSULIN SCH ×4 (08:41→21:02)
[2020-12-16] MEDS: FERROUS SULFATE 325 MG TABLET PO SCH (08:42)
[2020-12-16] MEDS: MAGNESIUM OXIDE 400 MG TABLET PO SCH (08:42)
[2020-12-16] MEDS: SODIUM CHLORIDE FLUSH 10ML SYR IVF SCH ×2 (09:00→21:00)
[2020-12-16 09:49] LABS: % IRON SATURATION 5 % (20-55); IRON LEVEL 14 mcg/dL (50-170); TOTAL IRON BINDING CAPACITY 266 mcg/dL (250-450)
[2020-12-16] MEDS ORDERED: MAGNESIUM SULFATE PMX 2GM/50ML 50 ML IV ONE (11:00)
[2020-12-16] MEDS: POTASSIUM ACID PHOSPHATE 500 MG TABLET.SOL PO SCH ×3 (11:40→23:49)
[2020-12-16 13:09] VITALS: BP 126/87
[2020-12-16 18:45] LABS: OCCULT BLOOD NEGATIVE (NEGATIVE)
[2020-12-16 19:05] VITALS: BP 126/83
[2020-12-17 01:00] VITALS: BP 134/98
[2020-12-17] MEDS: SODIUM CHLORIDE 0.9% 1,000 ML IV SCH ×2 (04:49→12:38)
[2020-12-17] MEDS: POTASSIUM ACID PHOSPHATE 500 MG TABLET.SOL PO SCH (06:20)
[2020-12-17 06:37] LABS: BASOPHILS % (AUTO) 1 % (0-1); EOSINOPHILS % (AUTO) 1 % (1-7); LYMPHOCYTES % (AUTO) 28 % (22-44); MEAN CORPUSCULAR HEMOGLOBIN 30.9 pg (27.0-34.8); MEAN CORPUSCULAR HGB CONC 32.9 g/dL (32.4-35.8); MEAN PLATELET VOLUME 7.9 fL (7.4-10.4); MONOCYTES % (AUTO) 7 % (2-9); NEUTROPHILS % (AUTO) 65 % (42-75); PLATELET COUNT 150 x10^3/uL (130-400); RED CELL DISTRIBUTION WIDTH 19.5 % (9.6-15.2)
[2020-12-17 06:41] LABS: ALBUMIN 2.3 g/dL (3.4-5.0); ANION GAP 8 mmol/L (5-15); CALCIUM 7.6 mg/dL (8.5-10.1); CHLORIDE 110 mmol/L (98-107)
[2020-12-17 06:46] LABS: ALANINE AMINOTRANSFERASE 199 U/L (12-78); ALKALINE PHOSPHATASE 244 U/L (45-117); BILIRUBIN,TOTAL 0.3 mg/dL (0.2-1.0); CREATININE 0.46 mg/dL (0.55-1.02); TOTAL PROTEIN 5.3 g/dL (6.4-8.2)
[2020-12-17 07:48] VITALS: BP 143/98
[2020-12-17] MEDS: MAGNESIUM OXIDE 400 MG TABLET PO SCH (07:59)
[2020-12-17] MEDS: ACETAMINOPHEN 325 MG TABLET PO PRN (08:00)
[2020-12-17] MEDS: FERROUS SULFATE 325 MG TABLET PO SCH (08:00)
[2020-12-17] MEDS: INSULIN GLARGINE 100 UNITS/ML, PEN SQ-INSULIN SCH (08:01)
[2020-12-17] MEDS: INSULIN LISPRO 100 UNITS/ML, PEN SQ-INSULIN SCH ×3 (08:01→15:58)
[2020-12-17] MEDS: SODIUM CHLORIDE FLUSH 10ML SYR IVF SCH (08:02)
[2020-12-17] MEDS ORDERED: ENOXAPARIN 40 MG/0.4 ML SQ SCH (09:00)
[2020-12-17 12:27] LABS: OCCULT BLOOD NEGATIVE (NEGATIVE)
[2020-12-17 14:45] VITALS: BP 127/85
[2020-12-17] MEDS ORDERED: INSU100I11 SQ-INSULIN (15:08)
[2020-12-17] MEDS ORDERED: FERR-51 PO (15:08)
[2020-12-17] MEDS ORDERED: APIX5TAB PO (15:08)
[2020-12-17] MEDS ORDERED: INSU100I13 SQ-INSULIN (15:08)
[2020-12-17] MEDS ORDERED: INSULIN GLARGINE 100 UNITS/ML, PEN SQ-INSULIN SCH (21:00)
== END 2020-12-17 18:02 | disposition home or self-care (01) | DRG 637 ==
LOC: ED 16:16 → EDIP 18:44 → 4NE 12-15 14:15
PROVIDERS: ADMIT Internal Medicine; ATTEND Internal Medicine
DX: E10.10 Type 1 diabetes mellitus with ketoacidosis without coma (principal); E43 Unspecified severe protein-calorie malnutrition; N17.0 Acute kidney failure with tubular necrosis; D68.69 Other thrombophilia; I82.401 Acute embolism and thrombosis of unspecified deep veins of right lower extremity; J98.11 Atelectasis; E87.1 Hypo-osmolality and hyponatremia; D72.829 Elevated white blood cell count, unspecified; Z68.22 Body mass index [BMI] 22.0-22.9, adult; E83.39 Other disorders of phosphorus metabolism; E86.0 Dehydration; E87.5 Hyperkalemia; E87.6 Hypokalemia; I10 Essential (primary) hypertension; K82.8 Other specified diseases of gallbladder; R62.50 Unspecified lack of expected normal physiological development in childhood; Z79.01 Long term (current) use of anticoagulants; Z87.891 Personal history of nicotine dependence; Z91.14 Patient's other noncompliance with medication regimen
CPT/HCPCS: 36415; 71045; 80048; 80053; 80076; 82010; 82272; 82803; 82947; 82962; 83540; 83550; 83690; 83735; 84100; 85025; 85520; 99285; G0378; J1650; J3480; J7070; J1815; J3475; J7030; J7120

== ENCOUNTER 2020-12-18 22:26 | Inpatient (IN) | payer MEDICAID ==
[~2020-12-18] VITALS: Ht 165.1 cm; Wt 69.0 kg
--- NOTE | 2020-12-18 22:41 | NUR ---
KARRI FROM HOME. AMS WITH FSBS 580, TACHYPNEIC REPORTEDLY TOOK 30 UNITS OF LANTUS THIS AM AND 30 UNITS OF LANTUS AT ROUG[place]Y 8PM ON ARRIVAL CONFUSED, COMPLETLEY DRY MUCUS MEMBRANES, BREATHING 40/MIN. 109/27 PLACED ON ELEMENTARY SCIENCE TEACHER AND ECG OBTAINED
--- NOTE | 2020-12-18 22:56 | NUR ---
BS REPORT FROM ELLE ADAMSON TO ASSUME CARE OF PTMelchor ADAMSON ACCESSING PORT AT THIS TIME.
--- NOTE | 2020-12-18 23:07 | NUR ---
RIGHT CHEST PORT ACCESSED IN STERILE MANNER. BASIC LABS DRAWN 1L NS BOLUS INITIATED REPORT TO ELIZABETH ALMEIDA
--- NOTE | 2020-12-18 23:19 | NUR ---
DR. GOLDMAN TO BS FOR ASSESSMENT. IVF INFUSING WELL.
[2020-12-18] MEDS ORDERED: SODIUM CHLORIDE 0.9% 1,000ML IVBOLUS ONE ×2 (23:30)
[2020-12-18 23:50] LABS: MEAN CORPUSCULAR HEMOGLOBIN 31.2 pg (27.0-34.8); MEAN PLATELET VOLUME 9.1 fL (7.4-10.4); PLATELET COUNT 348 x10^3/uL (130-400); RED BLOOD COUNT 3.01 x10^6/uL (3.82-5.3); RED CELL DISTRIBUTION WIDTH 20.1 % (9.6-15.2)
[2020-12-18 23:54] LABS: ALANINE AMINOTRANSFERASE 175 U/L (12-78); ALBUMIN 2.8 g/dL (3.4-5.0); ANION GAP 31 mmol/L (5-15); CALCIUM 8.9 mg/dL (8.5-10.1); CHLORIDE 100 mmol/L (98-107)
[2020-12-18 23:56] LABS: ACETONE, SERUM Large (80mg/dL) (Negative)
[2020-12-18 23:58] LABS: PH, VENOUS 6.806 pH (7.320-7.420)
[2020-12-18 23:59] LABS: ALKALINE PHOSPHATASE 305 U/L (45-117); BILIRUBIN,TOTAL 0.5 mg/dL (0.2-1.0); TOTAL PROTEIN 6.6 g/dL (6.4-8.2)
[2020-12-19 00:02] LABS: MEAN CORPUSCULAR HGB CONC 27.8 g/dL (32.4-35.8)
--- NOTE | 2020-12-19 00:17 | NUR ---
LEANNEH TO BS FOR EVAL.
[2020-12-19] MEDS ORDERED: PROMETHAZINE 25 MG/ML, 1ML IM PRN (00:30)
[2020-12-19] MEDS ORDERED: LACTATED RINGERS 1,000 ML IV SCH (00:30)
[2020-12-19] MEDS ORDERED: ONDANSETRON 2MG/ML, 2ML IVPush PRN (00:30)
[2020-12-19] MEDS ORDERED: MELATONIN 5 MG TABLET PO PRN (00:30)
[2020-12-19] MEDS ORDERED: ACETAMINOPHEN 325 MG TABLET PO PRN (00:30)
[2020-12-19] MEDS ORDERED: DEXTROSE 4 GM TAB.CHEW PO PRN (00:30)
[2020-12-19] MEDS ORDERED: POLYETHYLENE GLYCOL 17 GM PACKET PO PRN (00:30)
[2020-12-19] MEDS ORDERED: LABETALOL 5MG/ML, 20ML IVPush PRN (00:30)
[2020-12-19] MEDS ORDERED: DEXTROSE 10%, 1,000ML IV PRN (00:30)
[2020-12-19] MEDS ORDERED: DEXTROSE 50%, 50ML SYRINGE IVPush PRN (00:30)
[2020-12-19] MEDS ORDERED: ENOXAPARIN 40 MG/0.4 ML SQ SCH (00:30)
[2020-12-19] MEDS ORDERED: REGULAR INSULIN 100 UNITS in SODIUM CHLORIDE 0.9% 99 ML IV PRN ×2 (00:30)
[2020-12-19] MEDS ORDERED: GLUCAGON 1 MG IM PRN (00:30)
[2020-12-19 00:34] LABS: BAND#(MANUAL) 0.85 x10^3/uL; BANDS%(MANUAL) 6 % (0-7); BASOS#(MANUAL) 0.14 x10^3/uL (0-0.1); BASOS% (MANUAL) 1 % (0-1); LYMPH#(MANUAL) 1.42 x10^3/uL (1-3.4); LYMPHS% (MANUAL) 10 % (22-44); MONOS#(MANUAL) 0.28 x10^3/uL (0.3-2.7); MONOS% (MANUAL) 2 % (2-9); MYELOCYTES# (MANUAL) 0.14 x10^3/uL (0-0); MYELOCYTES% (MANUAL) 1 % (0-0); SEG#(MANUAL) 11.36 x10^3/uL (1.8-6.8); SEGS% (MANUAL) 80 % (42-75)
[2020-12-19 00:35] LABS: ANISOCYTOSIS 1+; POLYCHROMASIA 1+
[2020-12-19 00:36] LABS: ECHINOCYTES 1+; TEAR DROPS 1+
[2020-12-19 00:37] LABS: <PLATELET ESTIMATE> ADEQUATE
[2020-12-19 00:38] LABS: LARGE PLATELETS 1+
--- NOTE | 2020-12-19 00:39 | NUR ---
INSULIN DRIP REQUESTED FROM PHARMACY.
--- NOTE | 2020-12-19 01:34 | NUR ---
PT. CURLED UP IN POSITON. UBALE TO GET PT. TO SUPINE POSITON FOR ACCURATE B/P. PT. NOT ANSWERING ANY QUESTIONS BY STAFF SINCE ARRIVAL; CONTINUALLY REMOVING SEATING UPHOLSTERER; REPLACED SEVERAL TIMES. GAVINO PAW WARMER IN USE FOR PT. COMFORT. INSULIN DRIP /IVF INFUSING PER ORDER.
--- NOTE | 2020-12-19 02:05 | NUR ---
FSBS "HI" REPORTED TO DR. WEBB. INSULIN DRIP WAS INITIATED AT 6.35UNITS/HR BASED ON ERP ORDER. [facility] ORDER DIFFERED. CLARIFICATION BY DR. WEBB TO CHANGE INSULIN DRIP TO 8 UNITS/HR AT THIS TIME BASED ON LABS/FSBS.
--- NOTE | 2020-12-19 03:08 | NUR ---
FSBS 508; INSULIN DRIP TITRATED ACCORDINGLY. PT. WAS ABLE TO MOVE SELF FROM [facility] TO HOSPITAL BED WITH BEDS SIDEXSIDE. ALL WET LINES REMOVED AND PT. PROVIDED WITH WARM BLANKETS AND GAVINO PAW WARMER IN USE. PT. MORE ALERT THAN EARLIER AND SLIGHTLY MORE COOPERATIVE. B/P'S LOW; WILL UPDATE [facility].
--- NOTE | 2020-12-19 03:27 | NUR ---
CALLED LAB FOR STAT LAB DRAW NEW LABS ARE NEEDED Q4H.
[2020-12-19] MEDS ORDERED: LACTATED RINGERS 500 ML IVBOLUS ONE (04:00)
--- NOTE | 2020-12-19 04:19 | NUR ---
CALLED LAB AGAIN ABOUT STAT LAB DRAW.
--- NOTE | 2020-12-19 04:40 | NUR ---
DISCUSSED B/P'S WITH DR. WEBB. NEW ORDER FOR 1L LR BOLUS; INITIATED IMMEDIATLY. LAB TO BS
[2020-12-19] MEDS ORDERED: LACTATED RINGERS 1,000 ML IVBOLUS ONE ×4 (05:00→06:30)
[2020-12-19 05:01] LABS: BASOPHILS % (AUTO) 1 % (0-1); EOSINOPHILS % (AUTO) 0 % (1-7); LYMPHOCYTES % (AUTO) 15 % (22-44); MEAN PLATELET VOLUME 9.2 fL (7.4-10.4); MONOCYTES % (AUTO) 4 % (2-9); NEUTROPHILS % (AUTO) 80 % (42-75); PLATELET COUNT 168 x10^3/uL (130-400); RED BLOOD COUNT 2.49 x10^6/uL (3.82-5.3); RED CELL DISTRIBUTION WIDTH 19.1 % (9.6-15.2)
--- NOTE | 2020-12-19 05:03 | NUR ---
DR. WEBB TO BS TO EVAL PT. 1L LR BOLUS COMPLETED AT THIS TIME. VERBAL ORDER FOR 1 MORE LITER OF LR BOLUS.
[2020-12-19 05:12] LABS: ANION GAP 26 mmol/L (5-15); CALCIUM 8.1 mg/dL (8.5-10.1); CHLORIDE 110 mmol/L (98-107)
--- NOTE | 2020-12-19 05:25 | NUR ---
500ML OF LR BOLUS INFUSED.
--- NOTE | 2020-12-19 05:33 | NUR ---
MESSAGE LEFT FOR DR. WEBB ABOUT PT. CONTINUED LOW B/P DESPITE LR BOLUS'S. PT. RESPONSIVE TO PAINFUL STIMULI ONLY.
--- NOTE | 2020-12-19 05:40 | NUR ---
MD CALLED BACK WITH VERBAL ORDERS TO INCREASE LR MAINTAINENCE FLUIDS TO 200ML/HR FROM 150ML/HR AND NOREPI TITRATE TO MAP OF 65. ORDERS READ BACK. PHARMACY TO SEND NOREPI.
--- NOTE | 2020-12-19 05:58 | NUR ---
PER PHARMACY LEVO AND INSULIN ARE INCOMPATABLE. DR. WEBB CALLED WITH THIS. CENTAL LINE TO BE PLACED.
[2020-12-19] MEDS ORDERED: NOREPINEPHRINE 8 MG in SODIUM CHLORIDE 0.9% 242 ML IV PRN (06:00)
--- NOTE | 2020-12-19 06:06 | NUR ---
DISCUSSING NEED FOR CENTAL LINE WITH PT. PT. ANSWERING ALL A&O 4 QUESTIONS. PT. VERBALIZED "I UNDERSTAND THAT I WILL GET SICK AND ." "I DON'T WANT ANYONE TOUCHING ME, I DON'T WANT ANYONE NEAR ME." DR. WEBB ASKED "IF YOUR HEART STOPS WHAT WOULD YOU LIKE US TO DO?" PT. STATES "DO CPR". PT. ALSO REFUSING ANY IV'S "NO IV'S"
--- NOTE | 2020-12-19 06:10 | NUR ---
VERBAL ORDERS FOR 1-2 MORE L LR BOLUS/S BASED ON B/P SINCE PT. REFUSING CENTRAL LINE.
[2020-12-19] MEDS ORDERED: LACTATED RINGERS 1,000 ML IVBOLUS PRN (06:30)
[2020-12-19] MEDS ORDERED: D5%-0.45NACL+KCL 20MEQ 1,000 ML IV SCH (07:00)
--- NOTE | 2020-12-19 07:02 | NUR ---
REPORT FROM ELIZABETH ALMEIDA. PER RN, HOSPITALIST AWARE OF PTS MAP AND WILL CONSULT DAY SHIFT ON STOPPING INSULIN TO RUN VASOPRESSORS. PT REFUSING 2ND PIV ACCESS. 7L BOLUS INFUSING. PT HYPOTENSIVE, TACHYPNEIC, OTHER VS WDL.
[2020-12-19 08:00] LABS: ANION GAP 18 mmol/L (5-15); CALCIUM 8.1 mg/dL (8.5-10.1); CHLORIDE 116 mmol/L (98-107); CREATININE 0.67 mg/dL (0.55-1.02)
--- NOTE | 2020-12-19 08:08 | NUR ---
PT USED BED HAM, HAD FORMED BM AND URINE OUTPUT. CHANGED LINENS AND NEW GOWN.
--- NOTE | 2020-12-19 08:54 | NUR ---
TELEPHONE CALL TO REGARDING STOPPING INSULIN D/T FSBS 80. D5W 1/2 NS W/ K+ HELD TO START PRESSORS D/T MAP OF 49. AWAITING RETURN PHONE CALL.
--- NOTE | 2020-12-19 09:03 | NUR ---
PT PROVIDED W/ 2 CUPS OF APPLE JUICE.
--- NOTE | 2020-12-19 09:28 | NUR ---
AT BEDSIDE. FSBS 77, CONTINUE TO HOLD INSULIN. PER , HOLD PRESSORS AND RUN D5W 1/2 NS W/ K+.
[2020-12-19] MEDS ORDERED: APIXABAN 5 MG TABLET ONE (10:08)
[2020-12-19] MEDS: APIXABAN 5 MG TABLET PO SCH ×2 (10:50→22:46)
[2020-12-19] MEDS: FERROUS SULFATE 325 MG TABLET PO SCH (10:50)
--- NOTE | 2020-12-19 11:00 | NUR ---
PER PHARMACY OK TO RUN D5W 1/2NS AND K+ W/ INSULIN.
--- NOTE | 2020-12-19 11:02 | NUR ---
PT USED BED HAM, URINE OUT PUT AND BM. PT CLEANED.
[2020-12-19] MEDS ORDERED: ONDANSETRON 2MG/ML, 2ML ONE (11:15)
[2020-12-19 12:01] LABS: ANION GAP 10 mmol/L (5-15); CHLORIDE 117 mmol/L (98-107)
[2020-12-19 12:03] LABS: CREATININE 0.85 mg/dL (0.55-1.02)
--- NOTE | 2020-12-19 12:49 | NUR ---
PT SLEEPING ON HOSPITAL BED W/ CALL LIGHT IN REACH AND SIDE RAILS UPX2. RESP EVEN AND UNLABORED, FRANTZ.
[2020-12-19] MEDS: SODIUM CHLORIDE 0.9% 1,000 ML IV SCH ×2 (13:30→21:30)
--- NOTE | 2020-12-19 13:39 | NUR ---
PT ASSISTED ONTO BED HAM. URINE OUTPUT.
[2020-12-19] MEDS: INSULIN GLARGINE 100 UNITS/ML, PEN SQ-INSULIN SCH (13:50)
--- NOTE | 2020-12-19 14:00 | NUR ---
LIQUID DIET TRAY DELIVERED.
--- NOTE | 2020-12-19 15:00 | NUR ---
REPORT TO FLOOR RN. PT RESTING ON HOSPITAL BED W/ CALL LIGHT IN REACH AND SIDE RAILS UPX2. RESP EVEN AND UNLABORED, FRANTZ.
[2020-12-19] MEDS: INSULIN LISPRO 100 UNITS/ML, PEN SQ-INSULIN SCH ×2 (16:00→23:01)
[2020-12-19] MEDS: POTASSIUM CHLORIDE 20 MEQ TAB.ER.PRT PO SCH (17:09)
[2020-12-19 19:30] VITALS: BP 101/67
[2020-12-20] VITALS: BP 104/63
[2020-12-20] MEDS: INSULIN GLARGINE 100 UNITS/ML, PEN SQ-INSULIN SCH ×2 (01:04→14:07)
[2020-12-20 05:05] LABS: MICROSCOPIC AUTO
[2020-12-20 05:10] LABS: BASOPHILS % (AUTO) 1 % (0-1); EOSINOPHILS % (AUTO) 1 % (1-7); LYMPHOCYTES % (AUTO) 27 % (22-44); MEAN CORPUSCULAR HEMOGLOBIN 30.7 pg (27.0-34.8); MEAN CORPUSCULAR HGB CONC 32.5 g/dL (32.4-35.8); MEAN PLATELET VOLUME 7.9 fL (7.4-10.4); MONOCYTES % (AUTO) 9 % (2-9); NEUTROPHILS % (AUTO) 63 % (42-75); PLATELET COUNT 188 x10^3/uL (130-400); RED CELL DISTRIBUTION WIDTH 19.6 % (9.6-15.2)
[2020-12-20 05:13] LABS: ANION GAP 6 mmol/L (5-15); CALCIUM 6.9 mg/dL (8.5-10.1); CHLORIDE 119 mmol/L (98-107); CREATININE 0.46 mg/dL (0.55-1.02)
[2020-12-20] MEDS: INSULIN LISPRO 100 UNITS/ML, PEN SQ-INSULIN SCH ×4 (07:00→20:22)
[2020-12-20 07:08] VITALS: BP 105/72
[2020-12-20] MEDS: APIXABAN 5 MG TABLET PO SCH (08:27)
[2020-12-20] MEDS: SODIUM CHLORIDE 0.9% 1,000 ML IV SCH ×2 (08:28→17:34)
[2020-12-20] MEDS: POTASSIUM CHLORIDE 20 MEQ TAB.ER.PRT PO SCH ×2 (08:28→17:34)
[2020-12-20] MEDS: FERROUS SULFATE 325 MG TABLET PO SCH (08:28)
[2020-12-20] MEDS ORDERED: CALCIUM GLUCONATE 0.46MEQ/1ML IVPush ONE (12:00)
[2020-12-20 12:40] VITALS: BP 124/89
[2020-12-20] MEDS ORDERED: CALCIUM GLUCONATE 4.6 MEQ in SODIUM CHLORIDE 0.9% 100 ML IV ONE (13:30)
[2020-12-20 19:40] VITALS: BP 136/89
[2020-12-21 01:11] VITALS: BP 134/90
[2020-12-21] MEDS: SODIUM CHLORIDE 0.9% 1,000 ML IV SCH (01:19)
[2020-12-21] MEDS: INSULIN GLARGINE 100 UNITS/ML, PEN SQ-INSULIN SCH ×2 (01:22→14:16)
[2020-12-21] MEDS: INSULIN LISPRO 100 UNITS/ML, PEN SQ-INSULIN SCH ×2 (07:00→11:41)
[2020-12-21 07:15] VITALS: BP 137/95
[2020-12-21] MEDS: FERROUS SULFATE 325 MG TABLET PO SCH (09:18)
[2020-12-21] MEDS: POTASSIUM CHLORIDE 20 MEQ TAB.ER.PRT PO SCH (09:18)
[2020-12-21 10:22] LABS: BASOPHILS % (AUTO) 1 % (0-1); EOSINOPHILS % (AUTO) 1 % (1-7); LYMPHOCYTES % (AUTO) 28 % (22-44); MEAN CORPUSCULAR HEMOGLOBIN 31.1 pg (27.0-34.8); MEAN CORPUSCULAR HGB CONC 32.5 g/dL (32.4-35.8); MEAN PLATELET VOLUME 8.3 fL (7.4-10.4); MONOCYTES % (AUTO) 11 % (2-9); NEUTROPHILS % (AUTO) 60 % (42-75); PLATELET COUNT 168 x10^3/uL (130-400); RED BLOOD COUNT 2.39 x10^6/uL (3.82-5.3); RED CELL DISTRIBUTION WIDTH 19.6 % (9.6-15.2)
== END 2020-12-21 15:10 | disposition home or self-care (01) | DRG 637 ==
LOC: ED 23:00 → 4NW 12-19 → UNDOADMIN 12-19 00:14 → EDIP 12-19 00:14 → 4NW 12-19 15:36 → EDIP 12-19 15:36 → 4NW 12-20 00:23
PROVIDERS: ADMIT Internal Medicine; ATTEND Hospitalist
DX: E10.11 Type 1 diabetes mellitus with ketoacidosis with coma (principal); E43 Unspecified severe protein-calorie malnutrition; G93.41 Metabolic encephalopathy; N17.9 Acute kidney failure, unspecified; D68.69 Other thrombophilia; D72.829 Elevated white blood cell count, unspecified; E83.39 Other disorders of phosphorus metabolism; E86.0 Dehydration; E87.6 Hypokalemia; D53.9 Nutritional anemia, unspecified; E87.5 Hyperkalemia; I10 Essential (primary) hypertension; K82.8 Other specified diseases of gallbladder; E86.1 Hypovolemia; E10.40 Type 1 diabetes mellitus with diabetic neuropathy, unspecified; E83.42 Hypomagnesemia; Z63.8 Other specified problems related to primary support group; Z79.01 Long term (current) use of anticoagulants; Z87.891 Personal history of nicotine dependence; Z91.14 Patient's other noncompliance with medication regimen; Z86.718 Personal history of other venous thrombosis and embolism; Z88.8 Allergy status to other drugs, medicaments and biological substances; Z91.040 Latex allergy status; E10.21 Type 1 diabetes mellitus with diabetic nephropathy
CPT/HCPCS: 36415; 80048; 80053; 81001; 82010; 82330; 82803; 82962; 83735; 83930; 84703; 85025; 87086; 93005; 99291; G0378; J0610; J2405; J7120; J1815; J3480; J7030; J7050